=== PATIENT | male | born 1950 | race Caucasian/White ===

== ENCOUNTER 2019-09-08 12:03 | Inpatient (IN) | payer OTHER ==
--- NOTE | 2019-09-08 12:44 | PDOC ---
History of Present Illness - General Chief Complaint: Pain Stated Complaint: RT FOOT PAIN Time Seen by Provider: 09/08/19 12:22 - History of Present Illness Initial Comments: Mr. Chau is a 69 y/o male with PMH significant for HTN, DM, pacemaker, ESRD on dialysis T//, presenting today with right foot pain and swelling. Per daughter he arrived from [place] yesterday. Unsure about the alf care he was receiving over there. Also reports fall on Sunday. Right foot also appears to be more swollen today. Unsure if head trauma. Past History - Past Medical History Allergies/Adverse Reactions: Allergies Allergy/AdvReac Type Severity Reaction Status Date / Time No Known Allergies Allergy Verified 09/08/19 12:11 Home Medications: Ambulatory Orders Donepezil HCl 10 mg PO DAILY 09/08/19 Furosemide [Lasix -] 20 mg PO DAILY 09/08/19 Glimepiride 4 mg PO DAILY 09/08/19 Insulin NPH Hum/Reg Insulin Hm [Humulin 70-30 Vial] 10 unit SQ BID 09/08/19 Irbesartan/Hydrochlorothiazide [Irbesartan-Hctz 150-12.5 mg Tb] 1 each PO DAILY 09/08/19 Isosorbide Dinitrate [Isordil] 20 mg PO DAILY 09/08/19 LORazepam [Ativan] 2 mg PO HS 09/08/19 Levothyroxine [Synthroid -] 125 mcg PO DAILY 09/08/19 Omeprazole 20 mg PO DAILY 09/08/19 Temazepam [Restoril] 30 mg PO HS 09/08/19 Cardiac Disorders: Yes COPD: No Diabetes: Yes GI Disorders: Yes HTN: Yes Thyroid Disease: Yes - Surgical History Cardiac Surgery: Yes (DEFIBRILLATOR) - Psycho Social/Smoking Cessation Hx Smoking History: Never smoked Review of Systems - Review of Systems Comments:: Limited 2/2 poor patient historian GENERAL/CONSTITUTIONAL: No fever or chills. No weakness._ HEAD, EYES, EARS, NOSE AND THROAT: No change in vision. No change in hearing. No sore throat._ CARDIOVASCULAR: No chest pain or shortness of breath_ RESPIRATORY: Denies cough, hemoptysis_ GASTROINTESTINAL: No nausea, vomiting, diarrhea or constipation._ GENITOURINARY: No dysuria, frequency, or change in urination._ MUSCULOSKELETAL: Reports RLE swelling and redness and pain. No neck or back pain._ SKIN: No rash_ NEUROLOGIC: No headache, vertigo, loss of consciousness, or change in strength/ sensation._ ENDOCRINE: No increased thirst. No abnormal weight change_ HEMATOLOGIC/LYMPHATIC: No anemia, easy bleeding, or history of blood clots._ ALLERGIC/IMMUNOLOGIC: No hives or skin allergy._ *Physical Exam - Vital Signs Last Vital Signs Temp Pulse Resp BP Pulse Ox 97.3 F L 97 H 18 121/80 98 09/08/19 12:05 09/08/19 12:05 09/08/19 12:05 09/08/19 12:05 09/08/19 12:05 - Physical Exam Comments: GENERAL: Awake, alert, and oriented to person/place/time, in no acute distress_ HEAD: No signs of trauma, normocephalic, atraumatic _ EYES: PERRLA, EOMI, sclera anicteric, conjunctiva clear_ ENT: Hearing grossly normal, nares patent, oropharynx clear without exudates. No uvular deviation. Moist mucosa_ NECK: Normal ROM, supple, no lymphadenopathy, JVD, or masses_ LUNGS: No distress, speaks in full sentences, clear to auscultation bilaterally _ HEART: Regular rate and rhythm, normal S1 and S2, no murmurs appreciated, peripheral pulses normal and equal bilaterally._ ABDOMEN: Soft, nontender, normoactive bowel sounds. No guarding, no rebound. No masses_ EXTREMITIES: Normal inspection, Normal range of motion, no edema. No clubbing or cyanosis_ RLE: Inspection: Diffuse erythema and warmth over right foot and ankle. TTP right foot and ankle. no obvious abnormalities, no open wounds. Compartments soft and compressible, pain within proportion, no pain to passive stretch Knee stable to anterior/posterior drawer and varus/valgus stress Sensation: Intact and equal bilaterally. Motor: 5/5 EHL, 5/5 FHL, 5/5 TA, 5/5GS, 5/5 Quad, 5/5 Ham Vascular: 2+ DP/PT, all toes BCR <2 sec NEUROLOGICAL: Cranial nerves II through XII grossly intact. Normal speech, no focal sensorimotor deficits. Unsteady gait. Cerebellar testing negative. SKIN: Warm, Dry, normal turgor, no rashes or lesions noted except for warmth and erythema and dry skin over right foot. ED Treatment Course - LABORATORY CBC & Chemistry Diagram: 09/08/19 13:33 09/08/19 12:55 - RADIOLOGY Radiology Studies Ordered: Category Date Time Status CHEST PA & LAT [RAD] Stat Radiology 09/08/19 12:40 Ordered Medical Decision Making - Medical Decision Making 09/08/19 12:45 69M presenting with right foot swelling. Reports that he fell on Sunday and swelling has been worsening. Arrived by plane from [place] yesterday. DDx includes cellulitis vs fracture vs DVT -cbc, cmp, coags -ekg, trop, cxr -XR right foot/ankle/tibfib/knee -duplex US right leg 09/08/19 13:36 XR of right foot/ankle/tibfib/knee show no acute fracture and no subluxation. CXR shows no acute intra thoracic pathology. 09/08/19 14:00 Labs reviewed. Trops mildly elevated. Cr elevated. Laboratory Tests 09/08/19 09/08/19 09/08/19 12:55 12:55 13:33 WBC 11.3 H RBC 3.94 L Hgb 12.2 Hct 37.9 MCV 96.3 H MCH 31.1 MCHC 32.3 RDW 15.0 Plt Count 205 MPV 8.7 Absolute Neuts (auto) 8.9 H Neutrophils % 79.0 Lymphocytes % 12.5 Monocytes % 7.4 Eosinophils % 0.4 Basophils % 0.7 Nucleated RBC % 0 PT with INR INR PTT (Actin FS) Sodium 138 Potassium 4.0 Chloride 101 Carbon Dioxide 30 Anion Gap 7 L BUN 40.7 H Creatinine 4.8 H Est GFR (CKD-EPI)AfAm 13.21 Est GFR (CKD-EPI)NonAf 11.40 Random Glucose 72 L Calcium 8.3 L Total Bilirubin 0.8 AST 190 H ALT 122 H Alkaline Phosphatase 188 H Creatine Kinase 377 H Creatine Kinase Index 1.3 CK-MB (CK-2) 5.0 H Troponin I 0.60 H Total Protein 7.0 Albumin 2.5 L Urine Color Urine Appearance Urine pH Ur Specific [place] Urine Protein Urine Glucose (UA) Urine Ketones Urine Blood Urine Nitrite Urine Bilirubin Urine Urobilinogen Ur Leukocyte Esterase Urine WBC (Auto) Urine RBC (Auto) Urine Casts (Auto) U Pathogenic Cast Auto U Epithel Cells (Auto) U Sm Round Cell (Auto) Urine Bacteria (Auto) 09/08/19 09/08/19 13:33 16:38 WBC RBC Hgb Hct MCV MCH MCHC RDW Plt Count MPV Absolute Neuts (auto) Neutrophils % Lymphocytes % Monocytes % Eosinophils % Basophils % Nucleated RBC % PT with INR 12.80 INR 1.08 PTT (Actin FS) 33.3 Sodium Potassium Chloride Carbon Dioxide Anion Gap BUN Creatinine Est GFR (CKD-EPI)AfAm Est GFR (CKD-EPI)NonAf Random Glucose Calcium Total Bilirubin AST ALT Alkaline Phosphatase Creatine Kinase Creatine Kinase Index CK-MB (CK-2) Troponin I Total Protein Albumin Urine Color Dk yellow Urine Appearance Cloudy Urine pH 5.5 Ur Specific [place] 1.021 Urine Protein 4+ H Urine Glucose (UA) Negative Urine Ketones Trace H Urine Blood 2+ H Urine Nitrite Negative Urine Bilirubin 1+ H Urine Urobilinogen 1.0 Ur Leukocyte Esterase Trace Urine WBC (Auto) 17 Urine RBC (Auto) 2 Urine Casts (Auto) 22 U Pathogenic Cast Auto 5-10 U Epithel Cells (Auto) 8.1 U Sm Round Cell (Auto) None seen Urine Bacteria (Auto) 7.0 09/08/19 16:55 EKG shows paced rhythm, HR 103 bpm, QTc 529, no ST elevation/depression. 09/08/19 1830 US RLE shows no signs of DVT CT head shows no acute intracranial hemorrhage CT abd shows bilateral pleural effusions and cardiomegaly. Pacemaker in place. small amount of perihepatic free fluid. Mild non specific pericolonic soft tissue stranding adjacent to sigmoid colon. Cholelithiasis. 09/08/19 19:00 D/w Dr. Curtis who accepts the patient for admission. Discharge - Discharge Information Problems reviewed: Yes Clinical Impression/Diagnosis: Right foot pain, Cellulitis of right foot Condition: Stable - Admission Yes - Follow up/Referral - Patient Discharge Instructions - Post Discharge Activity
[2019-09-08] MEDS ORDERED: LIDOCAINE 5% TOPICAL PATCH TP ONE (14:02)
[2019-09-08 14:06] LABS: BASO % 0.7 % (0-2.0); EOS % 0.4 % (0-4.5); HEMATOCRIT 37.9 % (35.4-49); HEMOGLOBIN 12.2 GM/dL (11.7-16.9); LYMPH % 12.5 % (8-40); MCH 31.1 pg (25.7-33.7); MCHC 32.3 g/dl (32.0-35.9); MEAN CELL VOLUME 96.3 fl (80-96); MEAN PLT VOLUME 8.7 fl (7.5-11.1); MONO % 7.4 % (3.8-10.2); PLATELET COUNT 205 K/MM3 (134-434); RBC 3.94 M/mm3 (4.00-5.60); WHITE BLOOD COUNT 11.3 K/mm3 (4.0-10.0)
[2019-09-08 14:15] LABS: INR 1.08 (0.83-1.09); PROTHROMBIN TIME (PATIENT) 12.8 SEC (9.7-13.0)
[2019-09-08 14:18] LABS: ACTIVATED PTT 33.3 SECONDS (25.2-36.5)
[2019-09-08 14:35] LABS: ALBUMIN 2.5 g/dl (3.4-5.0); BILIRUBIN,TOTAL 0.8 mg/dL (0.2-1); BLOOD UREA NITROGEN 40.7 mg/dL (7-18); CALCIUM 8.3 mg/dL (8.5-10.1); CREATININE 4.8 mg/dL (0.55-1.3)
--- NOTE | 2019-09-08 14:41 | PDOC ---
Attending Attestation - Resident Resident Name: Benson Arias - ED Attending Attestation I have performed the following: I have examined & evaluated the patient, The case was reviewed & discussed with the resident, I agree w/resident's findings & plan - HPI HPI: 09/08/19 14:38 69y/o M mmp including HTN, CVA, ESRD on T//Sa dialysis just came to [place] from [place] in [place] for further medical care. Daughter arranged for outpatient dialysis to continue today (last session was Sunday and complete) as outpatient but since arriving yesterday pt c/o increased pain and swelling to R foot. no f/v/motor/sensory deficit. of note, recent fall at [place] with R sided injury, denies any acute foot pain after that fall but reporting some RUQ pain without GI complaints. - Physicial Exam PE: 09/08/19 14:40 Vitals as noted Head is atraumatic, seated in wheelchair conversant but with baseline dysarthria Neck is supple, no midline spine tenderness Heart is regular, lungs are clear Abdomen is soft/nondistended/nontender, exquisite tenderness over right lower floating ribs without crepitus or bruising or step-off Trace lower extremity edema on the left, 1+ on the right with warmth, abrasion noted to the third toe, no joint effusion - Medical Decision Making 09/08/19 14:41 This is a 69-year-old male with multiple medical problems recently transferring care from [place] scheduled for outpatient dialysis presenting to the emergency department today for acutely worsening right lower extremity/foot swelling and pain over the last 24 hours, evidence of early cellulitis on examination with abrasion of the right toe as possible source. No sirs here, hemodynamically stable, neurologically at baseline. Positive right rib tenderness on examination, question posttraumatic. Labs, EKG Chest x-ray CT head IV abx Seen by social work, will make arrangements per disposition will likely need iv abx and admission, check labs to determine urgent need for HD 09/08/19 15:49 LFTs elevated, trop elevated (0.6) xrays without focal bone pathology CT head, CTAP pending received abx admit Heart Score/ECG Review #1 ECG reviewed & interpreted by me at: 16:53 General ECG Interpretation: Normal Rate (A-V paced at 103), Normal Intervals ( qtc 529), No acute ischemic changes
[2019-09-08] MEDS ORDERED: VANCOMYCIN 1 GM in D5W (PRE-DOCKED) 1,000 MG/250 ML IVPB ONE (15:50)
[2019-09-08] MEDS ORDERED: PIPERACILLIN/TAZOB 3.375 GM 3.375 GM in DEXTROSE 5%-WATER - 50 ML IVPB ONE (15:50)
[2019-09-08] MEDS ORDERED: VANCOMYCIN 1 GRAM (PRE-DOCKED) 1,000 MG/250 ML BAG IVPB ONE (16:58)
[2019-09-08] MEDS ORDERED: PIPERACILLIN/TAZOB 3.375 GM 3.375 GM/50 ML BAG IVPB ONE (16:58)
[2019-09-08 17:04] LABS: EPI CELLS 8.1 /HPF (0-5/HPF); HYALINE CASTS 22 /lpf (0-8); PH,URINE 5.5 (5.0-8.0); URINE APPEARANCE CLOUDY; URINE BILIRUBIN 1+ (NEGATIVE); URINE COLOR DK YELLOW; URINE GLUCOSE (UA) NEGATIVE (NEGATIVE); URINE KETONE TRACE (NEGATIVE); URINE LEUK ESTERASE TRACE (NEGATIVE); URINE NITRITE NEGATIVE (NEGATIVE); URINE PROTEIN 4+ (NEGATIVE); URINE RBC 2 /hpf (0-4); URINE WBC 17 /hpf (0-5)
--- NOTE | 2019-09-08 20:06 | HP ---
Admitting History and Physical - Primary Care Physician PCP: Susana Curtis - Admission History of Present Illness: Mr. Chau is a 69 y/o male with PMH significant for HTN, DM, pacemaker, ESRD on dialysis T//, presenting today with right foot pain and swelling. Per daughter he arrived from [place] yesterday. Unsure about the senior living care he was receiving over there. Also reports fall on Sunday. Right foot also appears to be more swollen today. - Past Medical History HOME OFFICE CLAIM SPECIALIST: Yes: Dementia Cardiovascular: Yes: HTN, Other (pacemaker) Renal/: Yes: Renal Failure, Hemodialysis Endocrine: Yes: Diabetes Insipidus - Smoking History Smoking history: Never smoked Home Medications - Allergies Allergies/Adverse Reactions: Allergies Allergy/AdvReac Type Severity Reaction Status Date / Time No Known Allergies Allergy Verified 09/08/19 12:11 - Home Medications Home Medications: Ambulatory Orders Donepezil HCl 10 mg PO DAILY 09/08/19 Furosemide [Lasix -] 20 mg PO DAILY 09/08/19 Glimepiride 4 mg PO DAILY 09/08/19 Insulin NPH Hum/Reg Insulin Hm [Humulin 70-30 Vial] 10 unit SQ BID 09/08/19 Irbesartan/Hydrochlorothiazide [Irbesartan-Hctz 150-12.5 mg Tb] 1 each PO DAILY 09/08/19 Isosorbide Dinitrate [Isordil] 20 mg PO DAILY 09/08/19 LORazepam [Ativan] 2 mg PO HS 09/08/19 Levothyroxine [Synthroid -] 125 mcg PO DAILY 09/08/19 Omeprazole 20 mg PO DAILY 09/08/19 Temazepam [Restoril] 30 mg PO HS 09/08/19 Physical Examination Vital Signs: Vital Signs Temperature 98 F 09/08/19 18:02 Pulse Rate 68 09/08/19 18:02 Respiratory Rate 19 09/08/19 18:02 Blood Pressure 118/68 09/08/19 18:02 O2 Sat by Pulse Oximetry (%) 99 09/08/19 18:02 Constitutional: Yes: No Distress HENT: Yes: Atraumatic Neck: Yes: Supple Cardiovascular: Yes: Regular Rate and Rhythm Respiratory: Yes: CTA Bilaterally Gastrointestinal: Yes: Normal Bowel Sounds Extremities: Yes: Erythema, Other (R bin cellulitis) Edema: Yes Edema: LLE: 1+, RLE: 2+ Neurological: Yes: Alert Labs: CBC, BMP 09/08/19 13:33 09/08/19 12:55 Problem List - Problems (1) Cellulitis of right foot Assessment/Plan: iv abx id on board Code(s): L03.115 - CELLULITIS OF RIGHT LOWER LIMB (2) HTN (hypertension) Assessment/Plan: monitor Code(s): I10 - ESSENTIAL (PRIMARY) HYPERTENSION (3) Diabetes Assessment/Plan: insulin bgms endo consult Code(s): E11.9 - TYPE 2 DIABETES MELLITUS WITHOUT COMPLICATIONS Qualifiers: Diabetes mellitus type: type 2 Chronic kidney disease stage: on chronic dialysis (4) ESRD (end stage renal disease) Assessment/Plan: renal consult monitor Code(s): N18.6 - END STAGE RENAL DISEASE (5) Hypothyroid Assessment/Plan: on meds check tsh endo consult Code(s): E03.9 - HYPOTHYROIDISM, UNSPECIFIED Qualifiers: Hypothyroidism type: unspecified Qualified Code(s): E03.9 - Hypothyroidism , unspecified Assessment/Plan Laboratory Tests 09/08/19 09/08/19 09/08/19 12:55 12:55 13:33 WBC 11.3 H RBC 3.94 L Hgb 12.2 Hct 37.9 MCV 96.3 H MCH 31.1 MCHC 32.3 RDW 15.0 Plt Count 205 MPV 8.7 Absolute Neuts (auto) 8.9 H Neutrophils % 79.0 Lymphocytes % 12.5 Monocytes % 7.4 Eosinophils % 0.4 Basophils % 0.7 Nucleated RBC % 0 PT with INR INR PTT (Actin FS) Sodium 138 Potassium 4.0 Chloride 101 Carbon Dioxide 30 Anion Gap 7 L BUN 40.7 H Creatinine 4.8 H Est GFR (CKD-EPI)AfAm 13.21 Est GFR (CKD-EPI)NonAf 11.40 Random Glucose 72 L Calcium 8.3 L Total Bilirubin 0.8 AST 190 H ALT 122 H Alkaline Phosphatase 188 H Creatine Kinase 377 H Creatine Kinase Index 1.3 CK-MB (CK-2) 5.0 H Troponin I 0.60 H Total Protein 7.0 Albumin 2.5 L Urine Color Urine Appearance Urine pH Ur Specific [place] Urine Protein Urine Glucose (UA) Urine Ketones Urine Blood Urine Nitrite Urine Bilirubin Urine Urobilinogen Ur Leukocyte Esterase Urine WBC (Auto) Urine RBC (Auto) Urine Casts (Auto) U Pathogenic Cast Auto U Epithel Cells (Auto) U Sm Round Cell (Auto) Urine Bacteria (Auto) 09/08/19 09/08/19 13:33 16:38 WBC RBC Hgb Hct MCV MCH MCHC RDW Plt Count MPV Absolute Neuts (auto) Neutrophils % Lymphocytes % Monocytes % Eosinophils % Basophils % Nucleated RBC % PT with INR 12.80 INR 1.08 PTT (Actin FS) 33.3 Sodium Potassium Chloride Carbon Dioxide Anion Gap BUN Creatinine Est GFR (CKD-EPI)AfAm Est GFR (CKD-EPI)NonAf Random Glucose Calcium Total Bilirubin AST ALT Alkaline Phosphatase Creatine Kinase Creatine Kinase Index CK-MB (CK-2) Troponin I Total Protein Albumin Urine Color Dk yellow Urine Appearance Cloudy Urine pH 5.5 Ur Specific [place] 1.021 Urine Protein 4+ H Urine Glucose (UA) Negative Urine Ketones Trace H Urine Blood 2+ H Urine Nitrite Negative Urine Bilirubin 1+ H Urine Urobilinogen 1.0 Ur Leukocyte Esterase Trace Urine WBC (Auto) 17 Urine RBC (Auto) 2 Urine Casts (Auto) 22 U Pathogenic Cast Auto 5-10 U Epithel Cells (Auto) 8.1 U Sm Round Cell (Auto) None seen Urine Bacteria (Auto) 7.0 Active Medications Generic Name Dose Route Start Last Admin Trade Name Freq PRN Reason Stop Dose Admin Acetaminophen 650 mg 09/08/19 19:59 Tylenol - PO Q6H PRN FEVER Donepezil HCl 10 mg 09/09/19 10:00 Aricept - PO DAILY [facility] Furosemide 20 mg 09/09/19 10:00 Lasix - PO DAILY [facility] Glimepiride 4 mg 09/09/19 07:00 Amaryl - PO AM [facility] Heparin Sodium (Porcine) 5,000 unit 09/08/19 22:00 Heparin - SQ BID [facility] Insulin Aspart 1 vial 09/08/19 22:00 Novolog Vial Sliding Scale - SQ ACHS [facility] Protocol Isosorbide Dinitrate 20 mg 09/09/19 10:00 Isordil - PO DAILY [facility] Levothyroxine Sodium 125 mcg 09/09/19 07:00 Synthroid - PO AM [facility] Miscellaneous 1 each 09/08/19 22:00 Lidoderm Patch Removal MC DAILY@2200 [facility] Pantoprazole Sodium 20 mg 09/09/19 10:00 Protonix - PO DAILY [facility]
[2019-09-08] MEDS ORDERED: HEPARIN NA (PORCINE) 5,000 UNITS/ML 1ML VIAL ONE (21:22)
[2019-09-08] MEDS: HEPARIN NA (PORCINE) 5,000 UNITS/ML 1ML VIAL SQ SCH (21:25)
[2019-09-08] MEDS: LIDOCAINE PATCH REMOVAL MC SCH (21:26)
[2019-09-08] MEDS: INSULIN SLIDING SCALE (NOVOLOG) 1 VIAL SQ SCH (21:26)
[2019-09-09] MEDS: ACETAMINOPHEN 325 MG TABLET (FP) PO PRN (05:42)
[2019-09-09] MEDS: INSULIN SLIDING SCALE (NOVOLOG) 1 VIAL SQ SCH ×4 (06:00→22:42)
[2019-09-09] MEDS ORDERED: GLIMEPIRIDE 4 MG TABLET (FP) PO SCH (07:00)
[2019-09-09] MEDS: LEVOTHYROXINE NA 125 MCG TABLET (FP) PO SCH (07:05)
[2019-09-09] MEDS: DONEPEZIL HCL 10 MG TABLET (FP) PO SCH (10:01)
[2019-09-09] MEDS: PANTOPRAZOLE 20 MG TABLET (FP) PO SCH (10:01)
[2019-09-09] MEDS: FUROSEMIDE 20 MG TABLET (FP) PO SCH (10:01)
[2019-09-09] MEDS: HEPARIN NA (PORCINE) 5,000 UNITS/ML 1ML VIAL SQ SCH ×2 (10:02→22:19)
--- NOTE | 2019-09-09 10:26 | CON.CARD ---
Consult Consult Specialty:: Cardiology Referred by:: Dr. Curtis Reason for Consultation:: Cardiac evaluation - History of Present Illness Chief Complaint: Right foot swelling History of Present Illness: Patient is a 69 year old male with underlying history of HTN, DM, cardiomyopathy s/p ARGON TESTER-D (likely [employer]), ESRD on HD presented with right foot pain and swelling. He had just arrived from [place]. He reported fall. He has underlying dementia. He denies chest pain, shortness of breath or palpitations. He denies paroxysmal nocturnal dyspnea or orthopnea. He denies fever or chills. He denies nausea, vomiting, diarrhea or abdominal pain. He complains of right upper quadrant discomfort. - History Source History Provided By: Patient, Medical Record Limitations to Obtaining History: Clinical Condition - Past Medical History [employer]: Yes: Dementia Cardio/Vascular: Yes: CHF, HTN, Other (ARGON TESTER-D) Renal/: Yes: Renal Failure, Hemodialysis Endocrine: Yes: Diabetes Insipidus - Smoking History Smoking history: Never smoked Home Medications - Allergies Allergies/Adverse Reactions: Allergies Allergy/AdvReac Type Severity Reaction Status Date / Time No Known Allergies Allergy Verified 09/08/19 12:11 - Home Medications Home Medications: Ambulatory Orders Donepezil HCl 10 mg PO DAILY 09/08/19 Furosemide [Lasix -] 20 mg PO DAILY 09/08/19 Glimepiride 4 mg PO DAILY 09/08/19 Insulin NPH Hum/Reg Insulin Hm [Humulin 70-30 Vial] 10 unit SQ BID 09/08/19 Irbesartan/Hydrochlorothiazide [Irbesartan-Hctz 150-12.5 mg Tb] 1 each PO DAILY 09/08/19 Isosorbide Dinitrate [Isordil] 20 mg PO DAILY 09/08/19 LORazepam [Ativan] 2 mg PO HS 09/08/19 Levothyroxine [Synthroid -] 125 mcg PO DAILY 09/08/19 Omeprazole 20 mg PO DAILY 09/08/19 Temazepam [Restoril] 30 mg PO HS 09/08/19 Review of Systems - Review of Systems Constitutional: denies: Chills, Fever Cardiovascular: denies: Chest Pain, Palpitations, Shortness of Breath Respiratory: denies: Cough, Hemoptysis, Orthopnea, PND, SOB, SOB on Exertion Gastrointestinal: denies: Abdominal Pain, Constipation, Diarrhea, Melena, Nausea , Rectal Bleeding, Vomiting Genitourinary: denies: Dysuria, Hematuria Musculoskeletal: denies: Back Pain Neurological: denies: Dizziness, Headache, Seizure, Syncope Vital Signs: Vital Signs Temperature 98.3 F 09/09/19 10:00 Pulse Rate 86 09/09/19 10:00 Respiratory Rate 20 09/09/19 10:00 Blood Pressure 122/83 09/09/19 10:00 O2 Sat by Pulse Oximetry (%) 95 09/09/19 05:30 Eyes: Yes: PERRL HENT: Yes: Atraumatic Neck: Yes: Supple Respiratory: Yes: Diminished Gastrointestinal: Yes: Normal Bowel Sounds, Soft, Tenderness (RUQ with palpation ) Cardiovascular: Yes: Regular Rate and Rhythm JVD: No PMI: Non-Displaced Heart Sounds: Yes: S1, S2 Edema: No - Other Data Labs, Other Data: CBC, BMP 09/08/19 13:33 09/08/19 12:55 INR, PTT INR 1.08 (0.83-1.09) 09/08/19 13:33 Troponin, BNP 09/08/19 09/09/19 12:55 04:26 Troponin I 0.60 H 0.37 H Atrial sensed ventricular paced rhythm Echo: Pending Imaging - Results Chest X-ray: Report Reviewed (Atelectasis) X-ray: Report Reviewed (No fracture) Cat Scan: Report Reviewed (Abdominal CT small perihepatic free fluid and cholelithiasis) Ultrasound: Report Reviewed (No DVT) EKG: Report Reviewed Problem List - Problems (1) Biventricular ICD (implantable cardioverter-defibrillator) in place Code(s): Z95.810 - PRESENCE OF AUTOMATIC (IMPLANTABLE) CARDIAC DEFIBRILLATOR (2) Cardiomyopathy Code(s): I42.9 - CARDIOMYOPATHY, UNSPECIFIED Qualifiers: Cardiomyopathy type: unspecified Qualified Code(s): I42.9 - Cardiomyopathy , unspecified (3) Cellulitis of right foot Code(s): L03.115 - CELLULITIS OF RIGHT LOWER LIMB (4) Diabetes Code(s): E11.9 - TYPE 2 DIABETES MELLITUS WITHOUT COMPLICATIONS Qualifiers: Diabetes mellitus type: type 2 Chronic kidney disease stage: on chronic dialysis (5) ESRD (end stage renal disease) Code(s): N18.6 - END STAGE RENAL DISEASE (6) HTN (hypertension) Code(s): I10 - ESSENTIAL (PRIMARY) HYPERTENSION (7) Hypothyroid Code(s): E03.9 - HYPOTHYROIDISM, UNSPECIFIED Qualifiers: Hypothyroidism type: unspecified Qualified Code(s): E03.9 - Hypothyroidism , unspecified (8) Right foot pain Code(s): M79.671 - PAIN IN RIGHT FOOT Assessment/Plan 1. ESRD on HD 2. Cardiomyopathy s/p ARGON TESTER-D 3. HTN 4. Right Foot cellulitis 5. T2DM 6. Hypothyroidism 7. Dementia 8. Cholelithiasis and perihepatic free fluid 9. Demand ischemia PLAN: 1. HD per renal 2. Continue wound care and empiric antibiotic coverage 3. Need to interrogate ARGON TESTER-D 4. Can use ARB for BP as patient is on HD as long as he does not exhibit hyperkalemia 5. Echocardiography to assess LV/RV and valvular function 6. Trend troponin 7. Further evaluation of perihepatic free fluid Olman Pina MD
--- NOTE | 2019-09-09 10:34 | EKG ---
Test Reason : Blood Pressure : / mmHG Vent. Rate : 103 BPM Atrial Rate : 103 BPM P-R Int : 144 ms QRS Dur : 124 ms QT Int : 404 ms P-R-T Axes : 027 165 -01 degrees QTc Int : 529 ms POOR DATA QUALITY, INTERPRETATION MAY BE ADVERSELY AFFECTED Atrial-sensed ventricular-paced rhythm Biventricular pacemaker detected ABNORMAL ECG NO PREVIOUS ECGS AVAILABLE Confirmed by Benson Alexandra MD ([id number]) on 09/09/2019 10:34:22 AM Referred By: Confirmed By:Benson Alexandra MD
--- NOTE | 2019-09-09 13:55 | CON.ID ---
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: 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 Cardio/Vascular: Yes: HTN, Other (pacemaker) Renal/: Yes: Renal Failure, Hemodialysis Endocrine: Yes: Diabetes Insipidus - Smoking History Smoking history: Never smoked - Social History Usual Living Arrangement: Snf Place of : Other ([place]) History of Recent Travel: Yes (just arrived yesterday) Home Medications - Allergies Allergies/Adverse Reactions: Allergies Allergy/AdvReac Type Severity Reaction Status Date / Time No Known Allergies Allergy Verified 09/08/19 12:11 - Home Medications Home Medications: Ambulatory Orders Donepezil HCl 10 mg PO DAILY 09/08/19 Furosemide [Lasix -] 20 mg PO DAILY 09/08/19 Glimepiride 4 mg PO DAILY 09/08/19 Insulin NPH Hum/Reg Insulin Hm [Humulin 70-30 Vial] 10 unit SQ BID 09/08/19 Irbesartan/Hydrochlorothiazide [Irbesartan-Hctz 150-12.5 mg Tb] 1 each PO DAILY 09/08/19 Isosorbide Dinitrate [Isordil] 20 mg PO DAILY 09/08/19 LORazepam [Ativan] 2 mg PO HS 09/08/19 Levothyroxine [Synthroid -] 125 mcg PO DAILY 09/08/19 Omeprazole 20 mg PO DAILY 09/08/19 Temazepam [Restoril] 30 mg PO HS 09/08/19 Family Medical History Family History: Unable to Obtain Review of Systems - Review of Systems Constitutional: reports: No Symptoms Eyes: reports: No Symptoms HENT: reports: No Symptoms Neck: reports: No Symptoms Cardiovascular: reports: No Symptoms Respiratory: reports: No Symptoms Gastrointestinal: reports: No Symptoms Genitourinary: reports: No Symptoms Physical Exam Vital Signs: Vital Signs Temperature 98.3 F 09/09/19 10:00 Pulse Rate 86 09/09/19 10:00 Respiratory Rate 20 11/26/19 10:00 Blood Pressure 122/83 09/09/19 10:00 O2 Sat by Pulse Oximetry (%) 95 09/09/19 05:30 Constitutional: Yes: Well Nourished, No Distress, Calm Eyes: Yes: Conjunctiva Clear HENT: Yes: Atraumatic, Normocephalic Neck: Yes: Supple, Trachea Midline Cardiovascular: Yes: Regular Rate and Rhythm Respiratory: Yes: CTA Bilaterally, Other (right chest wall PC, left chest wall PPM- no erythema or tenderness to either device) Gastrointestinal: Yes: Normal Bowel Sounds, Soft ...Rectal Exam: Yes: Deferred Extremities: Yes: Other (right foot heel with discoloration with surrounding erythema) Edema: No Labs: CBC, BMP 09/08/19 13:33 09/08/19 12:55 Microbiology 09/08/19 13:35 Blood - Peripheral Venous Blood Culture - Preliminary NO GROWTH OBTAINED AFTER 24 HOURS, INCUBATION TO CONTINUE FOR 4 DAYS. 09/08/19 13:35 Blood - Peripheral Venous Blood Culture - Preliminary NO GROWTH OBTAINED AFTER 24 HOURS, INCUBATION TO CONTINUE FOR 4 DAYS. Imaging - Results Chest X-ray: Report Reviewed X-ray: Report Reviewed Cat Scan: Report Reviewed Problem List - Problems (1) Cellulitis of right foot Code(s): L03.115 - CELLULITIS OF RIGHT LOWER LIMB (2) ESRD (end stage renal disease) Code(s): N18.6 - END STAGE RENAL DISEASE (3) Diabetes Code(s): E11.9 - TYPE 2 DIABETES MELLITUS WITHOUT COMPLICATIONS Assessment/Plan received vancomycin and zosyn in ED yesterday cefazolin for cellulitis podiatry to evaluate vascular to evaluate renal for HD
--- NOTE | 2019-09-09 14:40 | CONSULT ---
Consult Consult Specialty:: Endocrinoloyg Referred by:: Dr Curtis Reason for Consultation:: Management of diabetes - History of Present Illness Chief Complaint: Rt foot pain History of Present Illness: This is a 69 y/o male with PMH significant for HTN, T2DM for 40 years, On Insulin for many years, pacemaker, ESRD on dialysis T//, presenting today with right foot pain and swelling. Per daughter he arrived from [place] yesterday. Unsure about the group home care he was receiving over there. Also reports fall on Sunday. Right foot also appears to be more swollen today. 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 Cardio/Vascular: Yes: HTN, Other (pacemaker) Renal/: Yes: Renal Failure, Hemodialysis Endocrine: Yes: Diabetes Insipidus - Smoking History Smoking history: Never smoked - Social History Usual Living Arrangement: Skilled Nursing History of Recent Travel: Yes (just arrived yesterday) Home Medications - Allergies Allergies/Adverse Reactions: Allergies Allergy/AdvReac Type Severity Reaction Status Date / Time No Known Allergies Allergy Verified 09/08/19 12:11 - Home Medications Home Medications: Ambulatory Orders Donepezil HCl 10 mg PO DAILY 09/08/19 Furosemide [Lasix -] 20 mg PO DAILY 09/08/19 Glimepiride 4 mg PO DAILY 09/08/19 Insulin NPH Hum/Reg Insulin Hm [Humulin 70-30 Vial] 10 unit SQ BID 09/08/19 Irbesartan/Hydrochlorothiazide [Irbesartan-Hctz 150-12.5 mg Tb] 1 each PO DAILY 09/08/19 Isosorbide Dinitrate [Isordil] 20 mg PO DAILY 09/08/19 LORazepam [Ativan] 2 mg PO HS 09/08/19 Levothyroxine [Synthroid -] 125 mcg PO DAILY 09/08/19 Omeprazole 20 mg PO DAILY 09/08/19 Temazepam [Restoril] 30 mg PO HS 09/08/19 Family Medical History Family Hx Diabetes: Mother, Father Review of Systems - Review of Systems Constitutional: reports: No Symptoms Eyes: reports: No Symptoms HENT: reports: No Symptoms Neck: reports: No Symptoms Cardiovascular: reports: No Symptoms Respiratory: reports: No Symptoms Gastrointestinal: reports: No Symptoms Genitourinary: reports: No Symptoms Musculoskeletal: reports: Other (Rt foot pain) Neurological: reports: No Symptoms Endocrine: reports: No Symptoms Physical Exam Vital Signs: Vital Signs Temperature 98.3 F 09/09/19 10:00 Pulse Rate 86 09/09/19 10:00 Respiratory Rate 20 09/09/19 10:00 Blood Pressure 122/83 09/09/19 10:00 O2 Sat by Pulse Oximetry (%) 95 09/09/19 05:30 Constitutional: Yes: No Distress, Calm Eyes: Yes: Conjunctiva Clear, EOM Intact HENT: Yes: Atraumatic, Normocephalic Neck: Yes: Supple, Trachea Midline Cardiovascular: Yes: Regular Rate and Rhythm Respiratory: Yes: Regular, CTA Bilaterally Gastrointestinal: Yes: Normal Bowel Sounds Extremities: Yes: Other (Rt foot/lower leg erythema,) Labs: CBC, BMP 09/08/19 13:33 09/08/19 12:55 Assessment/Plan AP: Rt Foot cellulitis T2DM Hypothyroidism ESRD D/C Glimepiride b/o increase risk of hypoglycemia with long acting Sulfonylurea in pt on HD. BGM Q 3 hrs for 24 hrs, To give 100 KCal snack when FS <100 or D50 if FS <60 Novolog SS coverage premeals and HS only as prescribed Abx as per ID Will f/u
[2019-09-09] MEDS ORDERED: DEXTROSE 5%-WATER - 50 ML IVPB ONE (14:41)
[2019-09-09] MEDS ORDERED: ceFAZolin SODIUM 1 GM VIAL ONE (14:41)
[2019-09-09] MEDS: ISOSORBIDE DINITRATE 20 MG TABLET (FP) PO SCH (14:53)
[2019-09-09] MEDS: CEFAZOLIN 1 GM in DEXTROSE 5%-WATER - 50 ML IVPB SCH (14:53)
[2019-09-09] MEDS ORDERED: SODIUM CHLORIDE 250 ML IV PRN (16:05)
--- NOTE | 2019-09-09 16:13 | CONSULT ---
Consult Consult Specialty:: Nephrology Reason for Consultation:: ESRD - History of Present Illness Chief Complaint: right foot pain and swelling History of Present Illness: Pt is a 69 year old male with pmhx of htn, dm, esrd, ppm who presents with right foot pain and swelling. He was admitted with cellulitis. He denies fevers or chills. He is from [place] and had just arrived to [place]. He gets HD there. He does not know the name of the HD center. He last went to dialysis on Sunday. he denies shortness of breath. He has a chest wall permacath. 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 Cardio/Vascular: Yes: HTN, Other (pacemaker) Renal/: Yes: Renal Failure, Hemodialysis Endocrine: Yes: Diabetes Insipidus - Smoking History Smoking history: Never smoked - Social History Usual Living Arrangement: [facility] History of Recent Travel: Yes (just arrived yesterday) Home Medications - Allergies Allergies/Adverse Reactions: Allergies Allergy/AdvReac Type Severity Reaction Status Date / Time No Known Allergies Allergy Verified 09/08/19 12:11 - Home Medications Home Medications: Ambulatory Orders Donepezil HCl 10 mg PO DAILY 09/08/19 Furosemide [Lasix -] 20 mg PO DAILY 09/08/19 Glimepiride 4 mg PO DAILY 09/08/19 Insulin NPH Hum/Reg Insulin Hm [Humulin 70-30 Vial] 10 unit SQ BID 09/08/19 Irbesartan/Hydrochlorothiazide [Irbesartan-Hctz 150-12.5 mg Tb] 1 each PO DAILY 09/08/19 Isosorbide Dinitrate [Isordil] 20 mg PO DAILY 09/08/19 LORazepam [Ativan] 2 mg PO HS 09/08/19 Levothyroxine [Synthroid -] 125 mcg PO DAILY 09/08/19 Omeprazole 20 mg PO DAILY 09/08/19 Temazepam [Restoril] 30 mg PO HS 09/08/19 Family Medical History Family History: Denies Review of Systems - Review of Systems Constitutional: reports: No Symptoms Eyes: reports: No Symptoms HENT: reports: No Symptoms Neck: reports: No Symptoms Cardiovascular: reports: No Symptoms Respiratory: reports: No Symptoms Gastrointestinal: reports: No Symptoms Genitourinary: reports: No Symptoms Musculoskeletal: reports: Other (foot pain) Neurological: reports: No Symptoms Endocrine: reports: No Symptoms Psychiatric: reports: No Symptoms Physical Exam Vital Signs: Vital Signs Temperature 97.5 F L 09/09/19 14:00 Pulse Rate 100 H 09/09/19 14:00 Respiratory Rate 20 09/09/19 14:00 Blood Pressure 131/74 09/09/19 14:00 O2 Sat by Pulse Oximetry (%) 95 09/09/19 05:30 Constitutional: Yes: Calm Eyes: Yes: Conjunctiva Clear HENT: Yes: Atraumatic Neck: Yes: Supple Cardiovascular: Yes: S1, S2 Respiratory: Yes: CTA Bilaterally Gastrointestinal: Yes: Normal Bowel Sounds, Soft Renal/: Yes: WNL Musculoskeletal: Yes: WNL Edema: No Wound/Incision: Yes: Dressing Dry and Intact Neurological: Yes: Oriented Psychiatric: Yes: Oriented Labs: CBC, BMP 09/08/19 13:33 09/08/19 12:55 Imaging - Results Chest X-ray: Report Reviewed Problem List - Problems (1) Cellulitis of right foot Code(s): L03.115 - CELLULITIS OF RIGHT LOWER LIMB (2) Diabetes Code(s): E11.9 - TYPE 2 DIABETES MELLITUS WITHOUT COMPLICATIONS (3) ESRD (end stage renal disease) Code(s): N18.6 - END STAGE RENAL DISEASE (4) HTN (hypertension) Code(s): I10 - ESSENTIAL (PRIMARY) HYPERTENSION (5) Hypothyroid Code(s): E03.9 - HYPOTHYROIDISM, UNSPECIFIED Assessment/Plan Current Medications Generic Name Dose Route Start Last Admin Trade Name Freq PRN Reason Stop Dose Admin Acetaminophen 650 mg 09/08/19 19:59 09/09/19 05:42 Tylenol - PO 650 mg Q6H PRN Administration FEVER Donepezil HCl 10 mg 09/09/19 10:00 09/09/19 10:01 Aricept - PO 10 mg DAILY [facility] Administration Furosemide 20 mg 09/09/19 10:00 09/09/19 10:01 Lasix - PO 20 mg DAILY [facility] Administration Heparin Sodium (Porcine) 5,000 unit 09/08/19 22:00 09/09/19 10:02 Heparin - SQ 5,000 unit BID [facility] Administration Cefazolin Sodium 1 gm/ 50 mls @ 100 mls/hr 09/09/19 14:00 09/09/19 14:53 Dextrose IVPB 100 mls/hr DAILY [facility] Administration Sodium Chloride 250 mls @ 3,000 mls/hr 09/09/19 16:05 Normal Saline - IV 09/10/19 16:05 PRN PRN Hypotension during Dialysis Insulin Aspart 1 vial 09/08/19 22:00 09/09/19 11:31 Novolog Vial Sliding Scale - SQ Not Given ACHS [facility] Protocol Isosorbide Dinitrate 20 mg 09/09/19 10:00 09/09/19 14:53 Isordil - PO 20 mg DAILY [facility] Administration Levothyroxine Sodium 125 mcg 09/09/19 07:00 09/09/19 07:05 Synthroid - PO 125 mcg AM [facility] Administration Miscellaneous 1 each 09/08/19 22:00 09/08/19 21:26 Lidoderm Patch Removal MC Not Given DAILY@2200 O[facility] Pantoprazole Sodium 20 mg 09/09/19 10:00 09/09/19 10:01 Protonix - PO 20 mg DAILY O[facility] Administration Impression 1. ESRD 2. HTN 3. cellulitis 4. DM 5. hypothyroidism Plan - HD today - wound care - abx per primary team - can stop lasix of he does not make much urine
--- NOTE | 2019-09-09 17:34 | PN ---
Progress Note, Physician - Current Medication List Current Medications: Active Medications Acetaminophen (Tylenol -) 650 mg PO Q6H PRN PRN Reason: FEVER Last Admin: 09/09/19 05:42 Dose: 650 mg Donepezil HCl (Aricept -) 10 mg PO DAILY [facility] Last Admin: 09/09/19 10:01 Dose: 10 mg Furosemide (Lasix -) 20 mg PO DAILY [facility] Last Admin: 09/09/19 10:01 Dose: 20 mg Heparin Sodium (Porcine) (Heparin -) 5,000 unit SQ BID [facility] Last Admin: 09/09/19 10:02 Dose: 5,000 unit Cefazolin Sodium 1 gm/ (Dextrose) 50 mls @ 100 mls/hr IVPB DAILY [facility] Last Admin: 09/09/19 14:53 Dose: 100 mls/hr Sodium Chloride (Normal Saline -) 250 mls @ 3,000 mls/hr IV PRN PRN PRN Reason: Hypotension during Dialysis Stop: 09/10/19 16:05 Insulin Aspart (Novolog Vial Sliding Scale -) [address] [facility]; Protocol Last Admin: 09/09/19 11:31 Dose: Not Given Isosorbide Dinitrate (Isordil -) 20 mg PO DAILY [facility] Last Admin: 09/09/19 14:53 Dose: 20 mg Levothyroxine Sodium (Synthroid -) 125 mcg PO AM [facility] Last Admin: 09/09/19 07:05 Dose: 125 mcg Miscellaneous (Lidoderm Patch Removal) 1 each MC DAILY@2200 [facility] Last Admin: 09/08/19 21:26 Dose: Not Given Pantoprazole Sodium (Protonix -) 20 mg PO DAILY [facility] Last Admin: 09/09/19 10:01 Dose: 20 mg - Objective Vital Signs: Vital Signs Temperature 97.5 F L 09/09/19 14:00 Pulse Rate 96 H 09/09/19 17:05 Respiratory Rate 18 09/09/19 17:05 Blood Pressure 140/88 09/09/19 17:05 O2 Sat by Pulse Oximetry (%) 95 09/09/19 09:00 Constitutional: Yes: No Distress HENT: Yes: Atraumatic Neck: Yes: Supple Cardiovascular: Yes: Regular Rate and Rhythm Respiratory: Yes: CTA Bilaterally Gastrointestinal: Yes: Normal Bowel Sounds Extremities: Yes: Other (R foot celluilitis) Neurological: Yes: Alert, Oriented Labs: CBC, BMP 09/08/19 13:33 09/08/19 12:55 INR, PTT INR 1.08 (0.83-1.09) 09/08/19 13:33 Problem List - Problems (1) Cellulitis of right foot Assessment/Plan: iv abx id on board Code(s): L03.115 - CELLULITIS OF RIGHT LOWER LIMB (2) HTN (hypertension) Code(s): I10 - ESSENTIAL (PRIMARY) HYPERTENSION (3) Diabetes Assessment/Plan: insulin bgms Code(s): E11.9 - TYPE 2 DIABETES MELLITUS WITHOUT COMPLICATIONS Qualifiers: Diabetes mellitus type: type 2 Chronic kidney disease stage: on chronic dialysis (4) ESRD (end stage renal disease) Code(s): N18.6 - END STAGE RENAL DISEASE (5) Hypothyroid Assessment/Plan: on meds check tsh endo consult Code(s): E03.9 - HYPOTHYROIDISM, UNSPECIFIED Qualifiers: Hypothyroidism type: unspecified Qualified Code(s): E03.9 - Hypothyroidism , unspecified Assessment/Plan Laboratory Tests 09/08/19 09/08/19 09/08/19 12:55 12:55 13:33 WBC 11.3 H RBC 3.94 L Hgb 12.2 Hct 37.9 MCV 96.3 H MCH 31.1 MCHC 32.3 RDW 15.0 Plt Count 205 MPV 8.7 Absolute Neuts (auto) 8.9 H Neutrophils % 79.0 Lymphocytes % 12.5 Monocytes % 7.4 Eosinophils % 0.4 Basophils % 0.7 Nucleated RBC % 0 PT with INR INR PTT (Actin FS) Sodium 138 Potassium 4.0 Chloride 101 Carbon Dioxide 30 Anion Gap 7 L BUN 40.7 H Creatinine 4.8 H Est GFR (CKD-EPI)AfAm 13.21 Est GFR (CKD-EPI)NonAf 11.40 Random Glucose 72 L Calcium 8.3 L Total Bilirubin 0.8 AST 190 H ALT 122 H Alkaline Phosphatase 188 H Creatine Kinase 377 H Creatine Kinase Index 1.3 CK-MB (CK-2) 5.0 H Troponin I 0.60 H Total Protein 7.0 Albumin 2.5 L Urine Color Urine Appearance Urine pH Ur Specific [place] Urine Protein Urine Glucose (UA) Urine Ketones Urine Blood Urine Nitrite Urine Bilirubin Urine Urobilinogen Ur Leukocyte Esterase Urine WBC (Auto) Urine RBC (Auto) Urine Casts (Auto) U Pathogenic Cast Auto U Epithel Cells (Auto) U Sm Round Cell (Auto) Urine Bacteria (Auto) 09/08/19 09/08/19 13:33 16:38 WBC RBC Hgb Hct MCV MCH MCHC RDW Plt Count MPV Absolute Neuts (auto) Neutrophils % Lymphocytes % Monocytes % Eosinophils % Basophils % Nucleated RBC % PT with INR 12.80 INR 1.08 PTT (Actin FS) 33.3 Sodium Potassium Chloride Carbon Dioxide Anion Gap BUN Creatinine Est GFR (CKD-EPI)AfAm Est GFR (CKD-EPI)NonAf Random Glucose Calcium Total Bilirubin AST ALT Alkaline Phosphatase Creatine Kinase Creatine Kinase Index CK-MB (CK-2) Troponin I Total Protein Albumin Urine Color Dk yellow Urine Appearance Cloudy Urine pH 5.5 Ur Specific [place] 1.021 Urine Protein 4+ H Urine Glucose (UA) Negative Urine Ketones Trace H Urine Blood 2+ H Urine Nitrite Negative Urine Bilirubin 1+ H Urine Urobilinogen 1.0 Ur Leukocyte Esterase Trace Urine WBC (Auto) 17 Urine RBC (Auto) 2 Urine Casts (Auto) 22 U Pathogenic Cast Auto 5-10 U Epithel Cells (Auto) 8.1 U Sm Round Cell (Auto) None seen Urine Bacteria (Auto) 7.0 Active Medications Generic Name Dose Route Start Last Admin Trade Name Freq PRN Reason Stop Dose Admin Acetaminophen 650 mg 09/08/19 19:59 Tylenol - PO Q6H PRN FEVER Donepezil HCl 10 mg 09/09/19 10:00 Aricept - PO DAILY [facility] Furosemide 20 mg 09/09/19 10:00 Lasix - PO DAILY [facility] Glimepiride 4 mg 09/09/19 07:00 Amaryl - PO AM [facility] Heparin Sodium (Porcine) 5,000 unit 09/08/19 22:00 Heparin - SQ BID [facility] Insulin Aspart 1 vial 09/08/19 22:00 Novolog Vial Sliding Scale - SQ ACHS [facility] Protocol Isosorbide Dinitrate 20 mg 09/09/19 10:00 Isordil - PO DAILY [facility] Levothyroxine Sodium 125 mcg 09/09/19 07:00 Synthroid - PO AM [facility] Miscellaneous 1 each 09/08/19 22:00 Lidoderm Patch Removal MC DAILY@2200 [facility] Pantoprazole Sodium 20 mg 09/09/19 10:00 Protonix - PO DAILY [facility]
[2019-09-09] MEDS: LIDOCAINE PATCH REMOVAL MC SCH (22:28)
[2019-09-10] MEDS: INSULIN SLIDING SCALE (NOVOLOG) 1 VIAL SQ SCH ×4 (06:54→21:19)
[2019-09-10] MEDS: LEVOTHYROXINE NA 125 MCG TABLET (FP) PO SCH (06:54)
[2019-09-10] MEDS ORDERED: ceFAZolin SODIUM 1 GM VIAL ONE (09:26)
[2019-09-10] MEDS ORDERED: DEXTROSE 5%-WATER - 50 ML IVPB ONE (09:26)
--- NOTE | 2019-09-10 09:36 | PN ---
Progress Note (short form) - Note Progress Note: still c/o rt foot pain BGM 200s off Glimepiride Vital Signs Period Temp Pulse Resp BP Sys/Palacios Pulse Ox Last 24 Hr 97.4 F-99.5 F 86-105 18-20 103-154/72-91 93 PE AOx3 Neck: Supple, No JVD Lungs: CTA CVS: s1S2 Abd: Benign Ext: Rt left erythema Neuro: No focal deficit CMP Sodium 138 mmol/L (136-145) 09/08/19 12:55 Potassium 4.0 mmol/L (3.5-5.1) 09/08/19 12:55 Chloride 101 mmol/L (98-107) 09/08/19 12:55 Carbon Dioxide 30 mmol/L (21-32) 09/08/19 12:55 Anion Gap 7 MMOL/L (8-16) L 09/08/19 12:55 BUN 40.7 mg/dL (7-18) H 09/08/19 12:55 Creatinine 4.8 mg/dL (0.55-1.3) H 09/08/19 12:55 Est GFR (CKD-EPI)AfAm 13.21 09/08/19 12:55 Est GFR (CKD-EPI)NonAf 11.40 09/08/19 12:55 POC Glucometer 206 UNITS (80-120) 09/10/19 06:53 Random Glucose 72 mg/dL (74-106) L 09/08/19 12:55 Hemoglobin A1c % 7.2 % (4.2-6.3) H 09/09/19 15:00 Calcium 8.3 mg/dL (8.5-10.1) L 09/08/19 12:55 Total Bilirubin 0.8 mg/dL (0.2-1) 09/08/19 12:55 AST 190 U/L (15-37) H 09/08/19 12:55 ALT 122 U/L (13-61) H 09/08/19 12:55 Alkaline Phosphatase 188 U/L (45-117) H 09/08/19 12:55 Creatine Kinase 377 U/L (26-308) H 09/08/19 12:55 Creatine Kinase Index 1.3 % (0.0-5.0) 09/08/19 12:55 CK-MB (CK-2) 5.0 ng/mL (0.5-3.6) H 09/08/19 12:55 Troponin I 0.37 ng/ml (0.00-0.05) H 09/09/19 04:26 Total Protein 7.0 g/dl (6.4-8.2) 09/08/19 12:55 Albumin 2.5 g/dl (3.4-5.0) L 09/08/19 12:55 Triglycerides 120 mg/dL (0-150) 09/09/19 04:26 Cholesterol 94 mg/dL (50-200) 09/09/19 04:26 Total LDL Cholesterol 45 mg/dL (5-100) 09/09/19 04:26 HDL Cholesterol 37 mg/dL (40-60) L 09/09/19 04:26 TSH 3.73 uIU/ml (0.358-3.74) 09/09/19 04:26 Current Medications Generic Name Dose Route Start Last Admin Trade Name Freq PRN Reason Stop Dose Admin Acetaminophen 650 mg 09/08/19 19:59 09/09/19 05:42 Tylenol - PO 650 mg Q6H PRN Administration FEVER Donepezil HCl 10 mg 09/09/19 10:00 09/09/19 10:01 Aricept - PO 10 mg DAILY [facility] Administration Furosemide 20 mg 09/09/19 10:00 09/09/19 10:01 Lasix - PO 20 mg DAILY [facility] Administration Heparin Sodium (Porcine) 5,000 unit 09/08/19 22:00 09/09/19 22:19 Heparin - SQ Not Given BID [facility] Cefazolin Sodium 1 gm/ 50 mls @ 100 mls/hr 09/09/19 14:00 09/09/19 14:53 Dextrose IVPB 100 mls/hr DAILY [facility] Administration Sodium Chloride 250 mls @ 3,000 mls/hr 09/09/19 16:05 Normal Saline - IV 09/10/19 16:05 PRN PRN Hypotension during Dialysis Insulin Aspart 1 vial 09/10/19 07:00 09/10/19 06:54 Novolog Vial Sliding Scale - SQ 2 units TIDAC [facility] Administration Protocol Insulin Aspart 1 vial 09/09/19 22:00 09/09/19 22:42 Novolog Vial Sliding Scale - SQ 2 units HS [facility] Administration Protocol Isosorbide Dinitrate 20 mg 09/09/19 10:00 09/09/19 14:53 Isordil - PO 20 mg DAILY [facility] Administration Levothyroxine Sodium 125 mcg 09/09/19 07:00 09/10/19 06:54 Synthroid - PO 125 mcg AM [facility] Administration Miscellaneous 1 each 09/08/19 22:00 09/09/19 22:28 Lidoderm Patch Removal MC Not Given DAILY@2200 [facility] Pantoprazole Sodium 20 mg 09/09/19 10:00 09/09/19 10:01 Protonix - PO 20 mg DAILY [facility] Administration AP: Rt Foot cellulitis T2DM Hypothyroidism ESRD Off Glimepiride b/o increase risk of hypoglycemia with long acting Sulfonylurea in pt on HD. BGM Q ACHS. To give 100 KCal snack when FS <100 or D50 if FS <60 Start Levemir 8 units daily Novolog SS coverage premeals and HS only as prescribed Abx as per ID Will f/u
[2019-09-10] MEDS: PANTOPRAZOLE 20 MG TABLET (FP) PO SCH (09:57)
[2019-09-10] MEDS: HEPARIN NA (PORCINE) 5,000 UNITS/ML 1ML VIAL SQ SCH ×2 (09:57→21:20)
[2019-09-10] MEDS: DONEPEZIL HCL 10 MG TABLET (FP) PO SCH (09:57)
[2019-09-10] MEDS: FUROSEMIDE 20 MG TABLET (FP) PO SCH (09:57)
[2019-09-10] MEDS: CEFAZOLIN 1 GM in DEXTROSE 5%-WATER - 50 ML IVPB SCH (09:58)
--- NOTE | 2019-09-10 10:06 | PN ---
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 - Current Medication List Current Medications: Active Medications Acetaminophen (Tylenol -) 650 mg PO Q6H PRN PRN Reason: FEVER Last Admin: 09/09/19 05:42 Dose: 650 mg Donepezil HCl (Aricept -) 10 mg PO DAILY [facility] Last Admin: 09/10/19 09:57 Dose: 10 mg Furosemide (Lasix -) 20 mg PO DAILY [facility] Last Admin: 09/10/19 09:57 Dose: 20 mg Heparin Sodium (Porcine) (Heparin -) 5,000 unit SQ BID [facility] Last Admin: 09/10/19 09:57 Dose: 5,000 unit Cefazolin Sodium 1 gm/ (Dextrose) 50 mls @ 100 mls/hr IVPB DAILY [facility] Last Admin: 09/10/19 09:58 Dose: 100 mls/hr Sodium Chloride (Normal Saline -) 250 mls @ 3,000 mls/hr IV PRN PRN PRN Reason: Hypotension during Dialysis Stop: 09/10/19 16:05 Insulin Aspart (Novolog Vial Sliding Scale -) 1 vial SQ TIDAC [facility]; Protocol Last Admin: 09/10/19 06:54 Dose: 2 units Insulin Aspart (Novolog Vial Sliding Scale -) 1 vial SQ HS [facility]; Protocol Last Admin: 09/09/19 22:42 Dose: 2 units Insulin Detemir (Levemir Vial) 8 units SQ HS [facility] Isosorbide Dinitrate (Isordil -) 20 mg PO DAILY [facility] Last Admin: 09/09/19 14:53 Dose: 20 mg Levothyroxine Sodium (Synthroid -) 125 mcg PO AM [facility] Last Admin: 09/10/19 06:54 Dose: 125 mcg Miscellaneous (Lidoderm Patch Removal) 1 each [facility] DAILY@2200 [facility] Last Admin: 09/09/19 22:28 Dose: Not Given Pantoprazole Sodium (Protonix -) 20 mg PO DAILY [facility] Last Admin: 09/10/19 09:57 Dose: 20 mg - Objective Vital Signs: Vital Signs Temperature 99.5 F 09/10/19 06:00 Pulse Rate 100 H 09/10/19 06:00 Respiratory Rate 20 09/10/19 06:00 Blood Pressure 103/72 09/10/19 06:00 O2 Sat by Pulse Oximetry (%) 93 L 09/09/19 21:00 Constitutional: Yes: No Distress, Calm, Thin Neck: Yes: Supple Cardiovascular: Yes: Regular Rate and Rhythm Respiratory: Yes: Regular, CTA Bilaterally Gastrointestinal: Yes: Normal Bowel Sounds, Soft Edema: No Labs: CBC, BMP 09/08/19 13:33 09/08/19 12:55 INR, PTT INR 1.08 (0.83-1.09) 09/08/19 13:33 - ....Imaging EKG: Report Reviewed (Bi-V paced @ 103) Problem List - Problems (1) Biventricular ICD (implantable cardioverter-defibrillator) in place Code(s): Z95.810 - PRESENCE OF AUTOMATIC (IMPLANTABLE) CARDIAC DEFIBRILLATOR (2) Cellulitis of right foot Code(s): L03.115 - CELLULITIS OF RIGHT LOWER LIMB (3) Diabetes Code(s): E11.9 - TYPE 2 DIABETES MELLITUS WITHOUT COMPLICATIONS Qualifiers: Diabetes mellitus type: type 2 Chronic kidney disease stage: on chronic dialysis (4) ESRD (end stage renal disease) Code(s): N18.6 - END STAGE RENAL DISEASE (5) HTN (hypertension) Code(s): I10 - ESSENTIAL (PRIMARY) HYPERTENSION (6) Hypothyroid Code(s): E03.9 - HYPOTHYROIDISM, UNSPECIFIED Qualifiers: Hypothyroidism type: unspecified Qualified Code(s): E03.9 - Hypothyroidism , unspecified (7) Cardiomyopathy Code(s): I42.9 - CARDIOMYOPATHY, UNSPECIFIED Qualifiers: Cardiomyopathy type: unspecified Qualified Code(s): I42.9 - Cardiomyopathy , unspecified Assessment/Plan 1. ESRD on HD via PC 2. Cardiomyopathy s/p MORT[employer]AGE LO[employer] OFFICER ORIGINATOR/ICD 3. HTN 4. Rt Foot cellulitis 5. Type 2 DM 6. Hypothyroidism 7. Dementia Plan 1. HD per renal 2. wound care, abx per ID, insulin, resume ARB for renovascular protection, interrogate MORTGAGE LO[employer] OFFICER ORIGINATOR-D 3. can stop lasix of he does not make much urine 4. Echo to assess ventricular and valve fxn
[2019-09-10] MEDS ORDERED: SODIUM CHLORIDE 250 ML IV PRN (12:05)
--- NOTE | 2019-09-10 12:05 | PN ---
Progress Note, Physician History of Present Illness: Pt seen and examined at bedside. He is awake and alert. He denies shortness of breath. - Current Medication List Current Medications: Active Medications Acetaminophen (Tylenol -) 650 mg PO Q6H PRN PRN Reason: FEVER Last Admin: 09/09/19 05:42 Dose: 650 mg Donepezil HCl (Aricept -) 10 mg PO DAILY [facility] Last Admin: 09/10/19 09:57 Dose: 10 mg Furosemide (Lasix -) 20 mg PO DAILY [facility] Last Admin: 09/10/19 09:57 Dose: 20 mg Heparin Sodium (Porcine) (Heparin -) 5,000 unit SQ BID [facility] Last Admin: 09/10/19 09:57 Dose: 5,000 unit Cefazolin Sodium 1 gm/ (Dextrose) 50 mls @ 100 mls/hr IVPB DAILY [facility] Last Admin: 09/10/19 09:58 Dose: 100 mls/hr Sodium Chloride (Normal Saline -) 250 mls @ 3,000 mls/hr IV PRN PRN PRN Reason: Hypotension during Dialysis Stop: 09/10/19 16:05 Insulin Aspart (Novolog Vial Sliding Scale -) 1 vial SQ TIDAC [facility]; Protocol Last Admin: 09/10/19 06:54 Dose: 2 units Insulin Aspart (Novolog Vial Sliding Scale -) 1 vial SQ HS [facility]; Protocol Last Admin: 09/09/19 22:42 Dose: 2 units Insulin Detemir (Levemir Vial) 8 units SQ HS [facility] Isosorbide Dinitrate (Isordil -) 20 mg PO DAILY [facility] Last Admin: 09/09/19 14:53 Dose: 20 mg Levothyroxine Sodium (Synthroid -) 125 mcg PO AM [facility] Last Admin: 09/10/19 06:54 Dose: 125 mcg Miscellaneous (Lidoderm Patch Removal) 1 each MC DAILY@2200 [facility] Last Admin: 09/09/19 22:28 Dose: Not Given Pantoprazole Sodium (Protonix -) 20 mg PO DAILY [facility] Last Admin: 09/10/19 09:57 Dose: 20 mg - Objective Vital Signs: Vital Signs Temperature 99.5 F 09/10/19 06:00 Pulse Rate 100 H 09/10/19 06:00 Respiratory Rate 20 09/10/19 06:00 Blood Pressure 103/72 09/10/19 06:00 O2 Sat by Pulse Oximetry (%) 93 L 09/09/19 21:00 Constitutional: Yes: Calm Eyes: Yes: Conjunctiva Clear HENT: Yes: Atraumatic Cardiovascular: Yes: S1, S2 Respiratory: Yes: CTA Bilaterally Gastrointestinal: Yes: Soft Genitourinary: Yes: WNL Musculoskeletal: Yes: WNL Edema: No Integumentary: Yes: WNL Neurological: Yes: Oriented Psychiatric: Yes: Oriented Labs: CBC, BMP 09/08/19 13:33 09/08/19 12:55 INR, PTT INR 1.08 (0.83-1.09) 09/08/19 13:33 Problem List - Problems (1) Cellulitis of right foot Code(s): L03.115 - CELLULITIS OF RIGHT LOWER LIMB (2) Diabetes Code(s): E11.9 - TYPE 2 DIABETES MELLITUS WITHOUT COMPLICATIONS (3) ESRD (end stage renal disease) Code(s): N18.6 - END STAGE RENAL DISEASE (4) HTN (hypertension) Code(s): I10 - ESSENTIAL (PRIMARY) HYPERTENSION (5) Hypothyroid Code(s): E03.9 - HYPOTHYROIDISM, UNSPECIFIED Assessment/Plan Current Medications Generic Name Dose Route Start Last Admin Trade Name Freq PRN Reason Stop Dose Admin Acetaminophen 650 mg 09/08/19 19:59 09/09/19 05:42 Tylenol - PO 650 mg Q6H PRN Administration FEVER Donepezil HCl 10 mg 09/09/19 10:00 09/10/19 09:57 Aricept - PO 10 mg DAILY [facility] Administration Furosemide 20 mg 09/09/19 10:00 09/10/19 09:57 Lasix - PO 20 mg DAILY [facility] Administration Heparin Sodium (Porcine) 5,000 unit 09/08/19 22:00 09/10/19 09:57 Heparin - SQ 5,000 unit BID [facility] Administration Cefazolin Sodium 1 gm/ 50 mls @ 100 mls/hr 09/09/19 14:00 09/10/19 09:58 Dextrose IVPB 100 mls/hr DAILY [facility] Administration Sodium Chloride 250 mls @ 3,000 mls/hr 09/09/19 16:05 Normal Saline - IV 09/10/19 16:05 PRN PRN Hypotension during Dialysis Insulin Aspart 1 vial 09/10/19 07:00 09/10/19 06:54 Novolog Vial Sliding Scale - SQ 2 units TIDAC [facility] Administration Protocol Insulin Aspart 1 vial 09/09/19 22:00 09/09/19 22:42 Novolog Vial Sliding Scale - SQ 2 units HS [facility] Administration Protocol Insulin Detemir 8 units 09/10/19 22:00 Levemir Vial SQ HS [facility] Isosorbide Dinitrate 20 mg 09/09/19 10:00 09/09/19 14:53 Isordil - PO 20 mg DAILY [facility] Administration Levothyroxine Sodium 125 mcg 09/09/19 07:00 09/10/19 06:54 Synthroid - PO 125 mcg AM [facility] Administration Miscellaneous 1 each 09/08/19 22:00 09/09/19 22:28 Lidoderm Patch Removal MC Not Given DAILY@2200 [facility] Pantoprazole Sodium 20 mg 09/09/19 10:00 09/10/19 09:57 Protonix - PO 20 mg DAILY [facility] Administration Impression 1. ESRD 2. HTN 3. cellulitis 4. DM 5. hypothyroidism Plan - HD tomorrow - HD today - wound care - abx per primary team - send HD info to [facility]
[2019-09-10] MEDS: ISOSORBIDE DINITRATE 20 MG TABLET (FP) PO SCH (12:49)
--- NOTE | 2019-09-10 20:18 | PN ---
Progress Note, Physician History of Present Illness: no appetite had bm belly ache - Current Medication List Current Medications: Active Medications Acetaminophen (Tylenol -) 650 mg PO Q6H PRN PRN Reason: FEVER Last Admin: 09/09/19 05:42 Dose: 650 mg Donepezil HCl (Aricept -) 10 mg PO DAILY [facility] Last Admin: 09/10/19 09:57 Dose: 10 mg Furosemide (Lasix -) 20 mg PO DAILY [facility] Last Admin: 09/10/19 09:57 Dose: 20 mg Heparin Sodium (Porcine) (Heparin -) 5,000 unit SQ BID [facility] Last Admin: 09/10/19 09:57 Dose: 5,000 unit Cefazolin Sodium 1 gm/ (Dextrose) 50 mls @ 100 mls/hr IVPB DAILY [facility] Last Admin: 09/10/19 09:58 Dose: 100 mls/hr Sodium Chloride (Normal Saline -) 250 mls @ 3,000 mls/hr IV PRN PRN PRN Reason: Hypotension during Dialysis Stop: 09/11/19 12:05 Insulin Aspart (Novolog Vial Sliding Scale -) 1 vial SQ TIDAC [facility]; Protocol Last Admin: 09/10/19 17:03 Dose: 2 units Insulin Aspart (Novolog Vial Sliding Scale -) 1 vial SQ HS [facility]; Protocol Last Admin: 09/09/19 22:42 Dose: 2 units Insulin Detemir (Levemir Vial) 8 units SQ [facility] Isosorbide Dinitrate (Isordil -) 20 mg PO DAILY [facility] Last Admin: 09/10/19 12:49 Dose: 20 mg Levothyroxine Sodium (Synthroid -) 125 mcg PO AM [facility] Last Admin: 09/10/19 06:54 Dose: 125 mcg Miscellaneous (Lidoderm Patch Removal) 1 each MC DAILY@2200 [facility] Last Admin: 09/09/19 22:28 Dose: Not Given Pantoprazole Sodium (Protonix -) 20 mg PO DAILY [facility] Last Admin: 09/10/19 09:57 Dose: 20 mg - Objective Vital Signs: Vital Signs Temperature 98.5 F 09/10/19 18:00 Pulse Rate 95 H 09/10/19 18:00 Respiratory Rate 20 09/10/19 18:00 Blood Pressure 133/82 09/10/19 18:00 O2 Sat by Pulse Oximetry (%) 93 L 09/10/19 09:00 Constitutional: Yes: No Distress HENT: Yes: Atraumatic Neck: Yes: Supple Cardiovascular: Yes: Regular Rate and Rhythm Respiratory: Yes: CTA Bilaterally Gastrointestinal: Yes: Normal Bowel Sounds Extremities: Yes: Delayed Capillary Refill Edema: No Neurological: Yes: Alert, Oriented Labs: CBC, BMP 09/08/19 13:33 09/08/19 12:55 INR, PTT INR 1.08 (0.83-1.09) 09/08/19 13:33 Problem List - Problems (1) Cellulitis of right foot Assessment/Plan: iv abx id on board Code(s): L03.115 - CELLULITIS OF RIGHT LOWER LIMB (2) HTN (hypertension) Assessment/Plan: monitor Code(s): I10 - ESSENTIAL (PRIMARY) HYPERTENSION (3) Diabetes Assessment/Plan: insulin bgms Code(s): E11.9 - TYPE 2 DIABETES MELLITUS WITHOUT COMPLICATIONS Qualifiers: Diabetes mellitus type: type 2 Chronic kidney disease stage: on chronic dialysis (4) ESRD (end stage renal disease) Assessment/Plan: renal consult monitor Code(s): N18.6 - END STAGE RENAL DISEASE (5) Hypothyroid Assessment/Plan: on meds check tsh endo consult Code(s): E03.9 - HYPOTHYROIDISM, UNSPECIFIED Qualifiers: Hypothyroidism type: unspecified Qualified Code(s): E03.9 - Hypothyroidism , unspecified
[2019-09-10] MEDS ORDERED: MAG HYDROX/AL HYDROX/SIMETH 30 ML UNIT-DOSE CUP PO PRN (20:19)
[2019-09-10] MEDS: INSULIN (LEVEMIR) 100 UNITS/ML UNITS SQ SCH (21:19)
[2019-09-10] MEDS: ACETAMINOPHEN 325 MG TABLET (FP) PO PRN (21:25)
[2019-09-11] MEDS: LIDOCAINE PATCH REMOVAL MC SCH ×2 (00:17→22:50)
[2019-09-11] MEDS: LEVOTHYROXINE NA 125 MCG TABLET (FP) PO SCH (06:07)
[2019-09-11] MEDS ORDERED: DEXTROSE 50%-WATER - 25 GM/50 ML VIAL IVPUSH ONE (06:09)
[2019-09-11] MEDS ORDERED: DEXTROSE 50%-WATER - 25 GM/50 ML VIAL ONE (06:15)
[2019-09-11] MEDS: INSULIN SLIDING SCALE (NOVOLOG) 1 VIAL SQ SCH ×4 (06:31→21:51)
--- NOTE | 2019-09-11 10:18 | PN ---
Progress Note (short form) - Note Progress Note: erythema of the right foot improved on hd now c/o foot pain Vital Signs Period Temp Pulse Resp BP Sys/Palacios Pulse Ox Last 24 Hr 97.4 F-98.5 F 78-99 18-20 120-155/80-99 99 cor-rrr lungs clear right foot erythema improved +DTI right heel CBC, BMP 09/08/19 13:33 09/08/19 12:55 Microbiology 09/08/19 16:38 Urine - Urine Clean Catch Urine Culture - Final Normal Urogenital [place] 09/08/19 13:35 Blood - Peripheral Venous Blood Culture - Preliminary NO GROWTH OBTAINED AFTER 48 HOURS, INCUBATION TO CONTINUE FOR 3 DAYS. 09/08/19 13:35 Blood - Peripheral Venous Blood Culture - Preliminary NO GROWTH OBTAINED AFTER 48 HOURS, INCUBATION TO CONTINUE FOR 3 DAYS. a/p cellulitis resolving on cefazolin, can switch to po keflex 500 mg daily for another week off load right heel suggest vascular to see to evaluate the heel esrd/hd Problem List - Problems (1) Cellulitis of right foot Code(s): L03.115 - CELLULITIS OF RIGHT LOWER LIMB (2) ESRD (end stage renal disease) Code(s): N18.6 - END STAGE RENAL DISEASE (3) Diabetes Code(s): E11.9 - TYPE 2 DIABETES MELLITUS WITHOUT COMPLICATIONS Qualifiers: Diabetes mellitus type: type 2 Chronic kidney disease stage: on chronic dialysis
[2019-09-11] MEDS: PANTOPRAZOLE 40 MG TABLET (FP) PO SCH (11:18)
[2019-09-11] MEDS ORDERED: ceFAZolin SODIUM 1 GM VIAL ONE (14:20)
[2019-09-11] MEDS ORDERED: DEXTROSE 5%-WATER - 50 ML IVPB ONE (14:20)
[2019-09-11] MEDS: ACETAMINOPHEN 325 MG TABLET (FP) PO PRN (14:22)
[2019-09-11] MEDS: CEFAZOLIN 1 GM in DEXTROSE 5%-WATER - 50 ML IVPB SCH (14:22)
[2019-09-11] MEDS: DONEPEZIL HCL 10 MG TABLET (FP) PO SCH (14:22)
[2019-09-11] MEDS: ISOSORBIDE DINITRATE 20 MG TABLET (FP) PO SCH (14:23)
[2019-09-11] MEDS: HEPARIN NA (PORCINE) 5,000 UNITS/ML 1ML VIAL SQ SCH ×2 (14:23→22:48)
[2019-09-11] MEDS: FUROSEMIDE 20 MG TABLET (FP) PO SCH (14:23)
--- NOTE | 2019-09-11 15:43 | PN ---
Progress Note, Physician History of Present Illness: Denies chest pain or dyspnea, had not had STEEL HANDLER-D interrogated in 7 years! - Current Medication List Current Medications: Active Medications Acetaminophen (Tylenol -) 650 mg PO Q6H PRN PRN Reason: FEVER Last Admin: 09/11/19 14:22 Dose: 650 mg Al Hydroxide/Mg Hydroxide (Mylanta Oral Suspension -) 30 ml PO Q6H PRN PRN Reason: DYSPEPSIA Last Admin: 09/10/19 21:25 Dose: 30 ml Donepezil HCl (Aricept -) 10 mg PO DAILY [facility] Last Admin: 09/11/19 14:22 Dose: 10 mg Furosemide (Lasix -) 20 mg PO DAILY [facility] Last Admin: 09/11/19 14:23 Dose: Not Given Heparin Sodium (Porcine) (Heparin -) 5,000 unit SQ BID [facility] Last Admin: 09/11/19 14:23 Dose: Not Given Cefazolin Sodium 1 gm/ (Dextrose) 50 mls @ 100 mls/hr IVPB DAILY [facility] Last Admin: 09/11/19 14:22 Dose: 100 mls/hr Sodium Chloride (Normal Saline -) 250 mls @ 3,000 mls/hr IV PRN PRN PRN Reason: Hypotension during Dialysis Stop: 09/11/19 12:05 Insulin Aspart (Novolog Vial Sliding Scale -) 1 vial SQ TIDAC [facility]; Protocol Last Admin: 09/11/19 14:19 Dose: Not Given Insulin Aspart (Novolog Vial Sliding Scale -) 1 vial SQ HS [facility]; Protocol Last Admin: 09/10/19 21:19 Dose: 2 units Insulin Detemir (Levemir Vial) 8 units SQ HS [facility] Last Admin: 09/10/19 21:19 Dose: 8 units Isosorbide Dinitrate (Isordil -) 20 mg PO DAILY [facility] Last Admin: 09/11/19 14:23 Dose: 20 mg Levothyroxine Sodium (Synthroid -) 125 mcg PO AM [facility] Last Admin: 09/11/19 06:07 Dose: 125 mcg Miscellaneous (Lidoderm Patch Removal) 1 each MC DAILY@2200 [facility] Last Admin: 09/11/19 00:17 Dose: Not Given Pantoprazole Sodium (Protonix -) 40 mg PO DAILY [facility] Last Admin: 09/11/19 11:18 Dose: 40 mg - Objective Vital Signs: Vital Signs Temperature 97.4 F L 09/11/19 08:35 Pulse Rate 91 H 09/11/19 12:15 Respiratory Rate 18 09/11/19 12:15 Blood Pressure 142/89 09/11/19 12:15 O2 Sat by Pulse Oximetry (%) 99 09/10/19 21:00 Constitutional: Yes: No Distress, Calm, Thin Neck: Yes: Supple Cardiovascular: Yes: Regular Rate and Rhythm Respiratory: Yes: Regular, CTA Bilaterally Gastrointestinal: Yes: Normal Bowel Sounds, Soft Edema: No Labs: CBC, BMP 09/08/19 13:33 09/08/19 12:55 INR, PTT INR 1.08 (0.83-1.09) 09/08/19 13:33 Problem List - Problems (1) Biventricular ICD (implantable cardioverter-defibrillator) in place Code(s): Z95.810 - PRESENCE OF AUTOMATIC (IMPLANTABLE) CARDIAC DEFIBRILLATOR (2) Cellulitis of right foot Code(s): L03.115 - CELLULITIS OF RIGHT LOWER LIMB (3) Diabetes Code(s): E11.9 - TYPE 2 DIABETES MELLITUS WITHOUT COMPLICATIONS Qualifiers: Diabetes mellitus type: type 2 Chronic kidney disease stage: on chronic dialysis (4) ESRD (end stage renal disease) Code(s): N18.6 - END STAGE RENAL DISEASE (5) HTN (hypertension) Code(s): I10 - ESSENTIAL (PRIMARY) HYPERTENSION (6) Hypothyroid Code(s): E03.9 - HYPOTHYROIDISM, UNSPECIFIED Qualifiers: Hypothyroidism type: unspecified Qualified Code(s): E03.9 - Hypothyroidism , unspecified (7) Cardiomyopathy Code(s): I42.9 - CARDIOMYOPATHY, UNSPECIFIED Qualifiers: Cardiomyopathy type: unspecified Qualified Code(s): I42.9 - Cardiomyopathy , unspecified Assessment/Plan 1. ESRD on HD via PC 2. Cardiomyopathy s/p STEEL HANDLER/ICD 3. HTN 4. Rt Foot cellulitis 5. Type 2 DM 6. Hypothyroidism 7. Dementia Plan 1. HD per renal 2. wound care, abx per ID, insulin, resume ARB for renovascular protection, interrogate STEEL HANDLER-D 3. can stop lasix of he does not make much urine 4. Echo to assess ventricular and valve fxn
--- NOTE | 2019-09-11 15:58 | PN ---
Progress Note, Physician History of Present Illness: events noted - Current Medication List Current Medications: Active Medications Acetaminophen (Tylenol -) 650 mg PO Q6H PRN PRN Reason: FEVER Last Admin: 09/11/19 14:22 Dose: 650 mg Al Hydroxide/Mg Hydroxide (Mylanta Oral Suspension -) 30 ml PO Q6H PRN PRN Reason: DYSPEPSIA Last Admin: 09/10/19 21:25 Dose: 30 ml Donepezil HCl (Aricept -) 10 mg PO DAILY [facility] Last Admin: 09/11/19 14:22 Dose: 10 mg Furosemide (Lasix -) 20 mg PO DAILY [facility] Last Admin: 09/11/19 14:23 Dose: Not Given Heparin Sodium (Porcine) (Heparin -) 5,000 unit SQ BID [facility] Last Admin: 09/11/19 14:23 Dose: Not Given Cefazolin Sodium 1 gm/ (Dextrose) 50 mls @ 100 mls/hr IVPB DAILY [facility] Last Admin: 09/11/19 14:22 Dose: 100 mls/hr Sodium Chloride (Normal Saline -) 250 mls @ 3,000 mls/hr IV PRN PRN PRN Reason: Hypotension during Dialysis Stop: 09/11/19 12:05 Insulin Aspart (Novolog Vial Sliding Scale -) 1 vial SQ TIDAC [facility]; Protocol Last Admin: 09/11/19 14:19 Dose: Not Given Insulin Aspart (Novolog Vial Sliding Scale -) 1 vial SQ HS [facility]; Protocol Last Admin: 09/10/19 21:19 Dose: 2 units Insulin Detemir (Levemir Vial) 8 units SQ HS [facility] Last Admin: 09/10/19 21:19 Dose: 8 units Isosorbide Dinitrate (Isordil -) 20 mg PO DAILY [facility] Last Admin: 09/11/19 14:23 Dose: 20 mg Levothyroxine Sodium (Synthroid -) 125 mcg PO AM [facility] Last Admin: 09/11/19 06:07 Dose: 125 mcg Miscellaneous (Lidoderm Patch Removal) 1 each MC DAILY@2200 [facility] Last Admin: 09/11/19 00:17 Dose: Not Given Pantoprazole Sodium (Protonix -) 40 mg PO DAILY [facility] Last Admin: 09/11/19 11:18 Dose: 40 mg - Objective Vital Signs: Vital Signs Temperature 97.4 F L 09/11/19 08:35 Pulse Rate 91 H 11/28/19 12:15 Respiratory Rate 18 09/11/19 12:15 Blood Pressure 142/89 09/11/19 12:15 O2 Sat by Pulse Oximetry (%) 99 09/10/19 21:00 Constitutional: Yes: No Distress HENT: Yes: Atraumatic Neck: Yes: Supple Cardiovascular: Yes: Regular Rate and Rhythm Respiratory: Yes: CTA Bilaterally Gastrointestinal: Yes: Normal Bowel Sounds Extremities: Yes: Other (R bin cellulitis) Edema: Yes Edema: LLE: Trace, RLE: Trace Neurological: Yes: Alert Labs: CBC, BMP 09/08/19 13:33 09/08/19 12:55 INR, PTT INR 1.08 (0.83-1.09) 09/08/19 13:33 Problem List - Problems (1) Cellulitis of right foot Assessment/Plan: iv abx id on board Code(s): L03.115 - CELLULITIS OF RIGHT LOWER LIMB (2) HTN (hypertension) Assessment/Plan: monitor Code(s): I10 - ESSENTIAL (PRIMARY) HYPERTENSION (3) Diabetes Assessment/Plan: insulin bgms Code(s): E11.9 - TYPE 2 DIABETES MELLITUS WITHOUT COMPLICATIONS Qualifiers: Diabetes mellitus type: type 2 Chronic kidney disease stage: on chronic dialysis (4) ESRD (end stage renal disease) Assessment/Plan: renal consult monitor Code(s): N18.6 - END STAGE RENAL DISEASE (5) Hypothyroid Assessment/Plan: on meds check tsh endo consult Code(s): E03.9 - HYPOTHYROIDISM, UNSPECIFIED Qualifiers: Hypothyroidism type: unspecified Qualified Code(s): E03.9 - Hypothyroidism , unspecified
--- NOTE | 2019-09-11 16:05 | RAPID ---
<Radha Guidry - Last Filed: 09/11/19 18:35> Physical Examination Vital Signs: Vital Signs Temperature 97.4 F L 09/11/19 08:35 Pulse Rate 91 H 09/11/19 12:15 Respiratory Rate 18 09/11/19 12:15 Blood Pressure 142/89 09/11/19 12:15 O2 Sat by Pulse Oximetry (%) 99 09/10/19 21:00 Labs: CBC, BMP 09/08/19 13:33 09/08/19 12:55 Rapid Response - Rapid Response Assessment: S Rapid response was called overhead. Team quickly responded and pt was found on the floor on his right side near the side of his bed. Nursing staff was present as well. Pt reported turning off the bed alarm and trying to get out of bed to go to the bathroom then fell. He denies loss of consciousness. He reports head pain, bilateral shoulder pain, right rib pain, and right hip pain. O 132/76 HR 109 alert and oriented x 3, intermittently confused lungs CTA heart paced rhythm, left chest tender to palpation NBS, no tenderness on palpation grossly neurologically intact, not cooperative with full neuro exam A/P #mechanical fall -EKG- paced, no ST changes -troponin- elevated, but lower than yesterday's value -CT head- negative for acute changes, waiting for radiology read -xrays- b/l shoulders, right rib, right hip- no acute fracture or pneumothorax noted, waiting for radiology read -primary team was notified -fall precautions -f/u radiology readings <Barber Pickett - Last Filed: 09/12/19 18:47> Physical Examination Vital Signs: Labs: CBC, BMP 09/12/19 09:45 09/12/19 09:45 Critical Care Total Critical Care Time (in minutes): 40 Critical Care Statement: The care of this patient involved high complexity decision making to prevent further life threatening deterioration of the patient 's condition and/or to evaluate & treat vital organ system(s) failure or risk of failure.
--- NOTE | 2019-09-11 16:11 | PN ---
Progress Note, Physician History of Present Illness: Pt seen and examined at bedside. He is awake and alert. He tolerated HD. - Current Medication List Current Medications: Active Medications Acetaminophen (Tylenol -) 650 mg PO Q6H PRN PRN Reason: FEVER Last Admin: 09/11/19 14:22 Dose: 650 mg Al Hydroxide/Mg Hydroxide (Mylanta Oral Suspension -) 30 ml PO Q6H PRN PRN Reason: DYSPEPSIA Last Admin: 09/10/19 21:25 Dose: 30 ml Donepezil HCl (Aricept -) 10 mg PO DAILY [facility] Last Admin: 09/11/19 14:22 Dose: 10 mg Furosemide (Lasix -) 20 mg PO DAILY [facility] Last Admin: 09/11/19 14:23 Dose: Not Given Heparin Sodium (Porcine) (Heparin -) 5,000 unit SQ BID [facility] Last Admin: 09/11/19 14:23 Dose: Not Given Cefazolin Sodium 1 gm/ (Dextrose) 50 mls @ 100 mls/hr IVPB DAILY [facility] Last Admin: 09/11/19 14:22 Dose: 100 mls/hr Sodium Chloride (Normal Saline -) 250 mls @ 3,000 mls/hr IV PRN PRN PRN Reason: Hypotension during Dialysis Stop: 09/11/19 12:05 Insulin Aspart (Novolog Vial Sliding Scale -) 1 vial SQ TIDAC [facility]; Protocol Last Admin: 09/11/19 14:19 Dose: Not Given Insulin Aspart (Novolog Vial Sliding Scale -) 1 vial SQ HS [facility]; Protocol Last Admin: 09/10/19 21:19 Dose: 2 units Insulin Detemir (Levemir Vial) 8 units SQ HS [facility] Last Admin: 09/10/19 21:19 Dose: 8 units Isosorbide Dinitrate (Isordil -) 20 mg PO DAILY [facility] Last Admin: 09/11/19 14:23 Dose: 20 mg Levothyroxine Sodium (Synthroid -) 125 mcg PO AM [facility] Last Admin: 09/11/19 06:07 Dose: 125 mcg Miscellaneous (Lidoderm Patch Removal) 1 each MC DAILY@2200 [facility] Last Admin: 09/11/19 00:17 Dose: Not Given Pantoprazole Sodium (Protonix -) 40 mg PO DAILY [facility] Last Admin: 09/11/19 11:18 Dose: 40 mg - Objective Vital Signs: Vital Signs Temperature 97.4 F L 09/11/19 08:35 Pulse Rate 91 H 09/11/19 12:15 Respiratory Rate 18 09/11/19 12:15 Blood Pressure 142/89 09/11/19 12:15 O2 Sat by Pulse Oximetry (%) 99 09/10/19 21:00 Constitutional: Yes: Calm Eyes: Yes: Conjunctiva Clear HENT: Yes: Atraumatic Neck: Yes: Supple Cardiovascular: Yes: S1, S2 Respiratory: Yes: CTA Bilaterally Gastrointestinal: Yes: Soft Genitourinary: Yes: WNL Edema: No Neurological: Yes: Oriented Psychiatric: Yes: Oriented Labs: CBC, BMP 09/08/19 13:33 09/08/19 12:55 INR, PTT INR 1.08 (0.83-1.09) 09/08/19 13:33 Problem List - Problems (1) Cellulitis of right foot Code(s): L03.115 - CELLULITIS OF RIGHT LOWER LIMB (2) Diabetes Code(s): E11.9 - TYPE 2 DIABETES MELLITUS WITHOUT COMPLICATIONS Qualifiers: Diabetes mellitus type: type 2 Chronic kidney disease stage: on chronic dialysis (3) ESRD (end stage renal disease) Code(s): N18.6 - END STAGE RENAL DISEASE (4) HTN (hypertension) Code(s): I10 - ESSENTIAL (PRIMARY) HYPERTENSION (5) Hypothyroid Code(s): E03.9 - HYPOTHYROIDISM, UNSPECIFIED Qualifiers: Hypothyroidism type: unspecified Qualified Code(s): E03.9 - Hypothyroidism , unspecified Assessment/Plan Current Medications Generic Name Dose Route Start Last Admin Trade Name Freq PRN Reason Stop Dose Admin Acetaminophen 650 mg 09/08/19 19:59 09/11/19 14:22 Tylenol - PO 650 mg Q6H PRN Administration FEVER Al Hydroxide/Mg Hydroxide 30 ml 09/10/19 20:19 09/10/19 21:25 Mylanta Oral Suspension - PO 30 ml Q6H PRN Administration DYSPEPSIA Donepezil HCl 10 mg 09/09/19 10:00 09/11/19 14:22 Aricept - PO 10 mg DAILY [facility] Administration Furosemide 20 mg 09/09/19 10:00 09/11/19 14:23 Lasix - PO Not Given DAILY [facility] Heparin Sodium (Porcine) 5,000 unit 09/08/19 22:00 09/11/19 14:23 Heparin - SQ Not Given BID [facility] Cefazolin Sodium 1 gm/ 50 mls @ 100 mls/hr 09/09/19 14:00 09/11/19 14:22 Dextrose IVPB 100 mls/hr DAILY [facility] Administration Sodium Chloride 250 mls @ 3,000 mls/hr 09/10/19 12:05 Normal Saline - IV 09/11/19 12:05 PRN PRN Hypotension during Dialysis Insulin Aspart 1 vial 09/10/19 07:00 09/11/19 14:19 Novolog Vial Sliding Scale - SQ Not Given TIDAC [facility] Protocol Insulin Aspart 1 vial 09/09/19 22:00 09/10/19 21:19 Novolog Vial Sliding Scale - SQ 2 units HS [facility] Administration Protocol Insulin Detemir 8 units 09/10/19 22:00 09/10/19 21:19 Levemir Vial SQ 8 units HS [facility] Administration Isosorbide Dinitrate 20 mg 09/09/19 10:00 09/11/19 14:23 Isordil - PO 20 mg DAILY [facility] Administration Levothyroxine Sodium 125 mcg 09/09/19 07:00 09/11/19 06:07 Synthroid - PO 125 mcg AM [facility] Administration Miscellaneous 1 each 09/08/19 22:00 09/11/19 00:17 Lidoderm Patch Removal MC Not Given DAILY@2200 [facility] Pantoprazole Sodium 40 mg 09/11/19 10:00 09/11/19 11:18 Protonix - PO 40 mg DAILY [facility] Administration Impression 1. ESRD 2. HTN 3. cellulitis 4. DM 5. hypothyroidism 6. hx of CVA Plan - HD today - cont wound care - renal diet - will need HD placement - d/c lasix
[2019-09-11] MEDS: INSULIN (LEVEMIR) 100 UNITS/ML UNITS SQ SCH (21:51)
[2019-09-12] MEDS: LEVOTHYROXINE NA 125 MCG TABLET (FP) PO SCH (05:59)
[2019-09-12] MEDS: INSULIN SLIDING SCALE (NOVOLOG) 1 VIAL SQ SCH ×4 (05:59→21:05)
[2019-09-12] MEDS: ACETAMINOPHEN 325 MG TABLET (FP) PO PRN (08:42)
[2019-09-12] MEDS ORDERED: ceFAZolin SODIUM 1 GM VIAL ONE (09:36)
[2019-09-12] MEDS ORDERED: DEXTROSE 5%-WATER - 50 ML IVPB ONE (09:36)
[2019-09-12] MEDS: DONEPEZIL HCL 10 MG TABLET (FP) PO SCH (09:56)
[2019-09-12] MEDS: PANTOPRAZOLE 40 MG TABLET (FP) PO SCH (09:56)
[2019-09-12] MEDS: FUROSEMIDE 20 MG TABLET (FP) PO SCH (09:56)
[2019-09-12] MEDS: CEFAZOLIN 1 GM in DEXTROSE 5%-WATER - 50 ML IVPB SCH (09:57)
[2019-09-12] MEDS ORDERED: PT OWN MED DRAWER 7, Y5N ONE (09:59)
[2019-09-12] MEDS: ISOSORBIDE DINITRATE 20 MG TABLET (FP) PO SCH (10:00)
[2019-09-12 10:14] LABS: BASO % 0.5 % (0-2.0); EOS % 0.4 % (0-4.5); HEMATOCRIT 36.3 % (35.4-49); HEMOGLOBIN 12.1 GM/dL (11.7-16.9); LYMPH % 9.4 % (8-40); MCH 31.2 pg (25.7-33.7); MCHC 33.4 g/dl (32.0-35.9); MEAN CELL VOLUME 93.6 fl (80-96); MONO % 5.1 % (3.8-10.2); NEUT % 84.6 % (42.8-82.8); PLATELET COUNT 203 K/MM3 (134-434); RBC 3.88 M/mm3 (4.00-5.60); RDW 15.4 % (11.9-15.9); WHITE BLOOD COUNT 9.3 K/mm3 (4.0-10.0)
[2019-09-12 10:42] LABS: ALBUMIN 2.4 g/dl (3.4-5.0); BILIRUBIN,TOTAL 0.6 mg/dL (0.2-1); BLOOD UREA NITROGEN 32.6 mg/dL (7-18); CREATININE 3.2 mg/dL (0.55-1.3); POTASSIUM 3.4 mmol/L (3.5-5.1); TOT PROT 6.2 g/dl (6.4-8.2)
--- NOTE | 2019-09-12 10:58 | CONSULT ---
Consult Consult Specialty:: podiatry Reason for Consultation:: right heel ulceration - History of Present Illness Chief Complaint: Mr. Chau is a 69 y/o male with PMH significant for HTN, DM, pacemaker, ESRD on dialysis T//, presenting today with right foot pain and swelling. Recently came from [place]. Painin right heel. Has allevyn on foot. Denies any f/c/n/v/sob. 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) Renal/: Yes: Renal Failure, Hemodialysis Musculoskeletal: Yes: Other (Right plantarmedial heel with deep tissue injury , underlying hematoma which as now opened and draining, no erythema, pain on palpatin noted, no streaking, no edema, no bone exposed) Endocrine: Yes: Diabetes Insipidus - Smoking History Smoking history: Never smoked - Social History Usual Living Arrangement: Alf History of Recent Travel: Yes (just arrived yesterday) Home Medications - Allergies Allergies/Adverse Reactions: Allergies Allergy/AdvReac Type Severity Reaction Status Date / Time No Known Allergies Allergy Verified 09/08/19 12:11 - Home Medications Home Medications: Ambulatory Orders Donepezil HCl 10 mg PO DAILY 09/08/19 Furosemide [Lasix -] 20 mg PO DAILY 09/08/19 Glimepiride 4 mg PO DAILY 09/08/19 Insulin NPH Hum/Reg Insulin Hm [Humulin 70-30 Vial] 10 unit SQ BID 09/08/19 Irbesartan/Hydrochlorothiazide [Irbesartan-Hctz 150-12.5 mg Tb] 1 each PO DAILY 09/08/19 Isosorbide Dinitrate [Isordil] 20 mg PO DAILY 09/08/19 LORazepam [Ativan] 2 mg PO HS 09/08/19 Levothyroxine [Synthroid -] 125 mcg PO DAILY 09/08/19 Omeprazole 20 mg PO DAILY 09/08/19 Temazepam [Restoril] 30 mg PO HS 09/08/19 Physical Exam Vital Signs: Vital Signs Temperature 97.9 F 09/12/19 07:46 Pulse Rate 100 H 09/12/19 07:46 Respiratory Rate 20 09/12/19 07:46 Blood Pressure 153/94 09/12/19 07:46 O2 Sat by Pulse Oximetry (%) 90 L 09/11/19 21:00 Labs: CBC, BMP 09/12/19 09:45 09/12/19 09:45 Assessment/Plan 69 y/o male with DTI tothe right heel, multiple small scabs noted on digits. Evaluated and reviewed Will order peter/pvr to workup vascular status Right heel to be offloaded; refuses to wear offloading boots so wear allevyn Will need wound care follow up once d/c cont offloading Will f/u vascular studies once completed given no changes on xray and superficial nature I doubt MRI would be helpful; unlikely osteo at this time.
--- NOTE | 2019-09-12 12:54 | PN ---
Progress Note, Physician History of Present Illness: stable - Current Medication List Current Medications: Active Medications Acetaminophen (Tylenol -) 650 mg PO Q6H PRN PRN Reason: FEVER Last Admin: 09/12/19 08:42 Dose: 650 mg Al Hydroxide/Mg Hydroxide (Mylanta Oral Suspension -) 30 ml PO Q6H PRN PRN Reason: DYSPEPSIA Last Admin: 09/10/19 21:25 Dose: 30 ml Donepezil HCl (Aricept -) 10 mg PO DAILY [facility] Last Admin: 09/12/19 09:56 Dose: 10 mg Furosemide (Lasix -) 20 mg PO DAILY [facility] Last Admin: 09/12/19 09:56 Dose: 20 mg Heparin Sodium (Porcine) (Heparin -) 5,000 unit SQ BID [facility] Last Admin: 09/11/19 22:48 Dose: Not Given Cefazolin Sodium 1 gm/ (Dextrose) 50 mls @ 100 mls/hr IVPB DAILY [facility] Last Admin: 09/12/19 09:57 Dose: 100 mls/hr Sodium Chloride (Normal Saline -) 250 mls @ 3,000 mls/hr IV PRN PRN PRN Reason: Hypotension during Dialysis Stop: 09/11/19 12:05 Insulin Aspart (Novolog Vial Sliding Scale -) 1 vial SQ TIDAC [facility]; Protocol Last Admin: 09/12/19 05:59 Dose: Not Given Insulin Aspart (Novolog Vial Sliding Scale -) 1 vial SQ HS [facility]; Protocol Last Admin: 09/11/19 21:51 Dose: 3 units Insulin Detemir (Levemir Vial) 8 units SQ HS [facility] Last Admin: 09/11/19 21:51 Dose: Not Given Isosorbide Dinitrate (Isordil -) 20 mg PO DAILY [facility] Last Admin: 09/12/19 10:00 Dose: 20 mg Levothyroxine Sodium (Synthroid -) 125 mcg PO AM [facility] Last Admin: 09/12/19 05:59 Dose: 125 mcg Miscellaneous (Lidoderm Patch Removal) 1 each MC DAILY@2200 [facility] Last Admin: 09/11/19 22:50 Dose: Not Given Pantoprazole Sodium (Protonix -) 40 mg PO DAILY [facility] Last Admin: 09/12/19 09:56 Dose: 40 mg - Objective Vital Signs: Vital Signs Temperature 97.9 F 09/12/19 07:46 Pulse Rate 100 H 09/12/19 07:46 Respiratory Rate 20 09/12/19 07:46 Blood Pressure 153/94 09/12/19 07:46 O2 Sat by Pulse Oximetry (%) 90 L 09/11/19 21:00 Constitutional: Yes: No Distress HENT: Yes: Atraumatic Neck: Yes: Supple Cardiovascular: Yes: Regular Rate and Rhythm Respiratory: Yes: CTA Bilaterally Gastrointestinal: Yes: Normal Bowel Sounds Extremities: Yes: WNL Neurological: Yes: Alert Labs: CBC, BMP 09/12/19 09:45 09/12/19 09:45 INR, PTT INR 1.08 (0.83-1.09) 09/08/19 13:33 Problem List - Problems (1) Cellulitis of right foot Assessment/Plan: iv abx id on board Code(s): L03.115 - CELLULITIS OF RIGHT LOWER LIMB (2) HTN (hypertension) Assessment/Plan: monitor Code(s): I10 - ESSENTIAL (PRIMARY) HYPERTENSION (3) Diabetes Assessment/Plan: insulin bgms Code(s): E11.9 - TYPE 2 DIABETES MELLITUS WITHOUT COMPLICATIONS Qualifiers: Diabetes mellitus type: type 2 Chronic kidney disease stage: on chronic dialysis (4) ESRD (end stage renal disease) Assessment/Plan: renal consult monitor Code(s): N18.6 - END STAGE RENAL DISEASE (5) Hypothyroid Assessment/Plan: on meds check tsh endo consult Code(s): E03.9 - HYPOTHYROIDISM, UNSPECIFIED Qualifiers: Hypothyroidism type: unspecified Qualified Code(s): E03.9 - Hypothyroidism , unspecified
--- NOTE | 2019-09-12 13:42 | ECHO ---
Name: LASHAUN ROQUEJESSICA Exam:Adult Echocardiogram Study Date: 09/12/2019 11:29 AM Age: 69 yrs Height: 66 in Weight: 173 lb BSA: 1.9 m2 MMode/2D Measurements & Calculations IVSd: 1.00 cm Ao root diam: 4.1 cm LVIDd: 6.5 cm LA dimension: 3.5 cm LVIDs: 5.2 cm ACS: 2.0 cm LVPWd: 0.87 cm IVSs: 0.96 cm LVPWs: 1.3 cm EDV(Teich): 216.9 ml ESV(Teich): 127.6 ml EPSS: 1.9 cm Doppler Measurements & Calculations MV E max : 108.1 cm/sec AI P1/2t: 363.6 msec MV A max : 44.4 cm/sec MV E/A: 2.4 AI max : 420.1 cm/sec MR max : 505.7 cm/sec AI max P.7 mmHg MR max P.1 mmHg AI dec slope: 338.3 cm/sec2 TR max : 239.2 cm/sec PI end-d : 105.9 cm/sec TR max P.9 mmHg Med Peak E' : 3.9 cm/sec Med E/e': 27.7 Lat Peak E' : 7.1 cm/sec Lat E/e': 15.2 Left Ventricle The left ventricle is moderately dilated. Left ventricular systolic function is severely reduced. Eje ction Fraction = 20-25%. Wall motion is preserved at the base. The remaining segments are diffusely/severel y hypokinetic. The left ventricular apex is not well visualized. Right Ventricle There is a pacemaker lead in the right ventricle. The right ventricle is grossly normal size. The rig ht ventricular systolic function is grossly normal. Atria The left atrium is borderline dilated. Right atrial size is normal. Mitral Valve The mitral valve is grossly normal. There is no mitral valve stenosis. There is moderate to severe mi tral regurgitation. Tricuspid Valve The tricuspid valve is normal in structure and function. There is mild tricuspid regurgitation. Right ventricular systolic pressure is normal. Aortic Valve The aortic valve opens well. There is mild aortic sclerosis.;. No hemodynamically significant valvula r aortic stenosis. Mild to moderate aortic regurgitation. Pulmonic Valve The pulmonic valve is not well seen, but is grossly normal. There is no pulmonic valvular stenosis. M ild pulmonic valvular regurgitation. Great Vessels Mild aortic root dilatation. Pericardium/Pleura There is no pericardial effusion. Interpretation Summary The left ventricle is moderately dilated. Left ventricular systolic function is severely reduced. Ejection Fraction = 20-25%. Wall motion is preserved at the base. The remaining segments are diffusely/severely hypokinetic. The left ventricular apex is not well visualized. There is a pacemaker lead in the right ventricle. There is moderate to severe mitral regurgitation. There is mild tricuspid regurgitation. There is mild aortic sclerosis.; Mild to moderate aortic regurgitation. Mild aortic root dilatation. There is no pericardial effusion. MD Petersen *Luis Fernando 09/12/2019 01:41 PM
--- NOTE | 2019-09-12 13:49 | PN ---
Progress Note, Physician History of Present Illness: Denies chest pain or dyspnea, tolerating PT with walker assistance, had not had PRODUCT SPECIALIST-D interrogated in 7 years! Post mechanical fall in AM. - Current Medication List Current Medications: Active Medications Acetaminophen (Tylenol -) 650 mg PO Q6H PRN PRN Reason: FEVER Last Admin: 09/12/19 08:42 Dose: 650 mg Al Hydroxide/Mg Hydroxide (Mylanta Oral Suspension -) 30 ml PO Q6H PRN PRN Reason: DYSPEPSIA Last Admin: 09/10/19 21:25 Dose: 30 ml Donepezil HCl (Aricept -) 10 mg PO DAILY [facility] Last Admin: 09/12/19 09:56 Dose: 10 mg Furosemide (Lasix -) 20 mg PO DAILY [facility] Last Admin: 09/12/19 09:56 Dose: 20 mg Heparin Sodium (Porcine) (Heparin -) 5,000 unit SQ BID [facility] Last Admin: 09/11/19 22:48 Dose: Not Given Cefazolin Sodium 1 gm/ (Dextrose) 50 mls @ 100 mls/hr IVPB DAILY [facility] Last Admin: 09/12/19 09:57 Dose: 100 mls/hr Sodium Chloride (Normal Saline -) 250 mls @ 3,000 mls/hr IV PRN PRN PRN Reason: Hypotension during Dialysis Stop: 09/11/19 12:05 Insulin Aspart (Novolog Vial Sliding Scale -) 1 vial SQ TIDAC [facility]; Protocol Last Admin: 09/12/19 12:59 Dose: 3 units Insulin Aspart (Novolog Vial Sliding Scale -) 1 vial SQ HS [facility]; Protocol Last Admin: 09/11/19 21:51 Dose: 3 units Insulin Detemir (Levemir Vial) 8 units SQ HS [facility] Last Admin: 09/11/19 21:51 Dose: Not Given Isosorbide Dinitrate (Isordil -) 20 mg PO DAILY [facility] Last Admin: 09/12/19 10:00 Dose: 20 mg Levothyroxine Sodium (Synthroid -) 125 mcg PO AM [facility] Last Admin: 09/12/19 05:59 Dose: 125 mcg Miscellaneous (Lidoderm Patch Removal) 1 each MC DAILY@2200 [facility] Last Admin: 09/11/19 22:50 Dose: Not Given Pantoprazole Sodium (Protonix -) 40 mg PO DAILY [facility] Last Admin: 09/12/19 09:56 Dose: 40 mg - Objective Vital Signs: Vital Signs Temperature 97.9 F 09/12/19 07:46 Pulse Rate 100 H 09/12/19 07:46 Respiratory Rate 20 09/12/19 07:46 Blood Pressure 153/94 09/12/19 07:46 O2 Sat by Pulse Oximetry (%) 90 L 09/11/19 21:00 Constitutional: Yes: No Distress, Calm, Thin Neck: Yes: Supple Cardiovascular: Yes: Regular Rate and Rhythm Respiratory: Yes: Regular, CTA Bilaterally Gastrointestinal: Yes: Normal Bowel Sounds, Soft Edema: No Labs: CBC, BMP 09/12/19 09:45 09/12/19 09:45 INR, PTT INR 1.08 (0.83-1.09) 09/08/19 13:33 Problem List - Problems (1) Biventricular ICD (implantable cardioverter-defibrillator) in place Code(s): Z95.810 - PRESENCE OF AUTOMATIC (IMPLANTABLE) CARDIAC DEFIBRILLATOR (2) Cellulitis of right foot Code(s): L03.115 - CELLULITIS OF RIGHT LOWER LIMB (3) Diabetes Code(s): E11.9 - TYPE 2 DIABETES MELLITUS WITHOUT COMPLICATIONS (4) ESRD (end stage renal disease) Code(s): N18.6 - END STAGE RENAL DISEASE (5) HTN (hypertension) Code(s): I10 - ESSENTIAL (PRIMARY) HYPERTENSION (6) Hypothyroid Code(s): E03.9 - HYPOTHYROIDISM, UNSPECIFIED Qualifiers: Qualified Code(s): E03.9 - Hypothyroidism, unspecified (7) Cardiomyopathy Code(s): I42.9 - CARDIOMYOPATHY, UNSPECIFIED Qualifiers: Qualified Code(s): I42.9 - Cardiomyopathy, unspecified Assessment/Plan 09/12/2019 Moderate dilated with severely decreased LVEF 20-25%, preserved wall motion at base, rest of segments severely HK, mod-severe MR, mild TR, pacemaker RV, mild-mod AR, mild ao dilatation 4.1 cm 1. ESRD on HD via PC 2. Severe cardiomyopathy s/p PRODUCT SPECIALIST/ICD 3. HTN heart disease 4. Rt Foot cellulitis, r/o PAD 5. Type 2 DM 6. Hypothyroidism 7. Dementia Plan 1. HD per renal, replete K 2. Wound care, abx per ID, insulin, resume ARB for renovascular protection, interrogate PRODUCT SPECIALIST-D 3. Can stop lasix if he does not make much urine 4. Add carvedilol 3.125 bid with uptitrate as hemodynamics tolerate, on isordil add hydralazine for BiDil 5. F/u CORINA/PVR
--- NOTE | 2019-09-12 14:12 | PN ---
Progress Note (short form) - Note Progress Note: still c/o rt foot pain BGM improving Vital Signs Period Temp Pulse Resp BP Sys/Palacios Pulse Ox Last 24 Hr 97.6 F-98.3 F 78-100 18-20 130-155/67-94 90 PE AOx3 Neck: Supple, No JVD Lungs: CTA CVS: s1S2 Abd: Benign Ext: Rt left erythema Neuro: No focal deficit CMP Sodium 140 mmol/L (136-145) 09/12/19 09:45 Potassium 3.4 mmol/L (3.5-5.1) L 09/12/19 09:45 Chloride 103 mmol/L (98-107) 09/12/19 09:45 Carbon Dioxide 29 mmol/L (21-32) 09/12/19 09:45 Anion Gap 8 MMOL/L (8-16) 09/12/19 09:45 BUN 32.6 mg/dL (7-18) H 09/12/19 09:45 Creatinine 3.2 mg/dL (0.55-1.3) H 09/12/19 09:45 Est GFR (CKD-EPI)AfAm 21.56 09/12/19 09:45 Est GFR (CKD-EPI)NonAf 18.60 09/12/19 09:45 POC Glucometer 240 UNITS (80-120) 09/12/19 12:57 Random Glucose 178 mg/dL (74-106) H 09/12/19 09:45 Hemoglobin A1c % 7.2 % (4.2-6.3) H 09/09/19 15:00 Calcium 8.0 mg/dL (8.5-10.1) L 09/12/19 09:45 Total Bilirubin 0.6 mg/dL (0.2-1) 09/12/19 09:45 AST 43 U/L (15-37) H 09/12/19 09:45 ALT 31 U/L (13-61) 09/12/19 09:45 Alkaline Phosphatase 180 U/L (45-117) H 09/12/19 09:45 Creatine Kinase 143 U/L (26-308) 09/10/19 20:45 Creatine Kinase Index 1.3 % (0.0-5.0) 09/08/19 12:55 CK-MB (CK-2) 5.0 ng/mL (0.5-3.6) H 09/08/19 12:55 Troponin I 0.17 ng/ml (0.00-0.05) H 09/11/19 16:13 Total Protein 6.2 g/dl (6.4-8.2) L 09/12/19 09:45 Albumin 2.4 g/dl (3.4-5.0) L 09/12/19 09:45 Triglycerides 120 mg/dL (0-150) 09/09/19 04:26 Cholesterol 94 mg/dL (50-200) 09/09/19 04:26 Total LDL Cholesterol 45 mg/dL (5-100) 09/09/19 04:26 HDL Cholesterol 37 mg/dL (40-60) L 09/09/19 04:26 TSH 3.73 uIU/ml (0.358-3.74) 09/09/19 04:26 Current Medications Generic Name Dose Route Start Last Admin Trade Name Freq PRN Reason Stop Dose Admin Acetaminophen 650 mg 09/08/19 19:59 09/12/19 08:42 Tylenol - PO 650 mg Q6H PRN Administration FEVER Al Hydroxide/Mg Hydroxide 30 ml 09/10/19 20:19 09/10/19 21:25 Mylanta Oral Suspension - PO 30 ml Q6H PRN Administration DYSPEPSIA Donepezil HCl 10 mg 09/09/19 10:00 09/12/19 09:56 Aricept - PO 10 mg DAILY [facility] Administration Furosemide 20 mg 09/09/19 10:00 09/12/19 09:56 Lasix - PO 20 mg DAILY [facility] Administration Heparin Sodium (Porcine) 5,000 unit 09/08/19 22:00 09/11/19 22:48 Heparin - SQ Not Given BID [facility] Cefazolin Sodium 1 gm/ 50 mls @ 100 mls/hr 09/09/19 14:00 09/12/19 09:57 Dextrose IVPB 100 mls/hr DAILY [facility] Administration Sodium Chloride 250 mls @ 3,000 mls/hr 09/10/19 12:05 Normal Saline - IV 09/11/19 12:05 PRN PRN Hypotension during Dialysis Insulin Aspart 1 vial 09/10/19 07:00 09/12/19 12:59 Novolog Vial Sliding Scale - SQ 3 units TIDAC [facility] Administration Protocol Insulin Aspart 1 vial 09/09/19 22:00 09/11/19 21:51 Novolog Vial Sliding Scale - SQ 3 units HS [facility] Administration Protocol Insulin Detemir 8 units 09/10/19 22:00 09/11/19 21:51 Levemir Vial SQ Not Given HS [facility] Isosorbide Dinitrate 20 mg 09/09/19 10:00 09/12/19 10:00 Isordil - PO 20 mg DAILY [facility] Administration Levothyroxine Sodium 125 mcg 09/09/19 07:00 09/12/19 05:59 Synthroid - PO 125 mcg AM [facility] Administration Miscellaneous 1 each 09/08/19 22:00 09/11/19 22:50 Lidoderm Patch Removal MC Not Given DAILY@2200 [facility] Pantoprazole Sodium 40 mg 09/11/19 10:00 09/12/19 09:56 Protonix - PO 40 mg DAILY [facility] Administration AP: Rt Foot cellulitis T2DM Hypothyroidism ESRD Episode of hypoglycemia as pt didin't eat dinner the previous night. Off Glimepiride b/o increase risk of hypoglycemia with long acting Sulfonylurea in pt on HD. BGM Q ACHS. To give 100 KCal snack when FS <100 or D50 if FS <60 Decrease Levemir 4 units daily at HS. To hold Levemir dose whenever pt doesn't eat dinner and or when FS at HS is <150. Novolog SS coverage premeals and HS Abx as per ID Will f/u
--- NOTE | 2019-09-12 14:18 | EKG ---
Test Reason : Blood Pressure : / mmHG Vent. Rate : 100 BPM Atrial Rate : 100 BPM P-R Int : 144 ms QRS Dur : 128 ms QT Int : 316 ms P-R-T Axes : 030 162 -39 degrees QTc Int : 407 ms Atrial-sensed ventricular-paced rhythm Biventricular pacemaker detected ABNORMAL ECG WHEN COMPARED WITH ECG OF 08-SEP-2019 16:53, VENT. RATE HAS DECREASED BY 3 BPM Confirmed by VENKATESH SPENCER MD ([id number]) on 09/12/2019 2:18:20 PM Referred By: Confirmed By:VENKATESH SPENCER MD
[2019-09-12] MEDS ORDERED: SODIUM CHLORIDE 250 ML IV PRN (14:25)
--- NOTE | 2019-09-12 14:25 | PN ---
Progress Note, Physician History of Present Illness: Pt seen and examined at bedside. He is awake and alert. He denies shortness of breath. - Current Medication List Current Medications: Active Medications Acetaminophen (Tylenol -) 650 mg PO Q6H PRN PRN Reason: FEVER Last Admin: 09/12/19 08:42 Dose: 650 mg Al Hydroxide/Mg Hydroxide (Mylanta Oral Suspension -) 30 ml PO Q6H PRN PRN Reason: DYSPEPSIA Last Admin: 09/10/19 21:25 Dose: 30 ml Carvedilol (Coreg -) 3.125 mg PO BID [facility] Donepezil HCl (Aricept -) 10 mg PO DAILY [facility] Last Admin: 09/12/19 09:56 Dose: 10 mg Furosemide (Lasix -) 20 mg PO DAILY [facility] Last Admin: 09/12/19 09:56 Dose: 20 mg Heparin Sodium (Porcine) (Heparin -) 5,000 unit SQ BID [facility] Last Admin: 09/11/19 22:48 Dose: Not Given Cefazolin Sodium 1 gm/ (Dextrose) 50 mls @ 100 mls/hr IVPB DAILY [facility] Last Admin: 09/12/19 09:57 Dose: 100 mls/hr Sodium Chloride (Normal Saline -) 250 mls @ 3,000 mls/hr IV PRN PRN PRN Reason: Hypotension during Dialysis Stop: 09/11/19 12:05 Insulin Aspart (Novolog Vial Sliding Scale -) 1 vial SQ TIDAC [facility]; Protocol Insulin Aspart (Novolog Vial Sliding Scale -) 1 vial SQ HS [facility]; Protocol Insulin Detemir (Levemir Vial) 4 units SQ HS [facility] Isosorbide Dinitrate (Isordil -) 20 mg PO DAILY [facility] Last Admin: 09/12/19 10:00 Dose: 20 mg Levothyroxine Sodium (Synthroid -) 125 mcg PO AM [facility] Last Admin: 09/12/19 05:59 Dose: 125 mcg Miscellaneous (Lidoderm Patch Removal) 1 each MC DAILY@2200 [facility] Last Admin: 09/11/19 22:50 Dose: Not Given Pantoprazole Sodium (Protonix -) 40 mg PO DAILY [facility] Last Admin: 09/12/19 09:56 Dose: 40 mg - Objective Vital Signs: Vital Signs Temperature 97.9 F 09/12/19 07:46 Pulse Rate 100 H 09/12/19 07:46 Respiratory Rate 20 09/12/19 07:46 Blood Pressure 153/94 09/12/19 07:46 O2 Sat by Pulse Oximetry (%) 90 L 09/11/19 21:00 Constitutional: Yes: Calm Eyes: Yes: Conjunctiva Clear HENT: Yes: Atraumatic Neck: Yes: Supple Cardiovascular: Yes: S1, S2 Respiratory: Yes: CTA Bilaterally Gastrointestinal: Yes: Soft Genitourinary: Yes: WNL Musculoskeletal: Yes: WNL Edema: No Integumentary: Yes: WNL Neurological: Yes: Oriented Psychiatric: Yes: Oriented Labs: CBC, BMP 09/12/19 09:45 09/12/19 09:45 INR, PTT INR 1.08 (0.83-1.09) 09/08/19 13:33 Problem List - Problems (1) Cellulitis of right foot Code(s): L03.115 - CELLULITIS OF RIGHT LOWER LIMB (2) Diabetes Code(s): E11.9 - TYPE 2 DIABETES MELLITUS WITHOUT COMPLICATIONS Qualifiers: Diabetes mellitus type: type 2 Chronic kidney disease stage: on chronic dialysis (3) ESRD (end stage renal disease) Code(s): N18.6 - END STAGE RENAL DISEASE (4) HTN (hypertension) Code(s): I10 - ESSENTIAL (PRIMARY) HYPERTENSION (5) Hypothyroid Code(s): E03.9 - HYPOTHYROIDISM, UNSPECIFIED Qualifiers: Hypothyroidism type: unspecified Qualified Code(s): E03.9 - Hypothyroidism , unspecified Assessment/Plan Current Medications Generic Name Dose Route Start Last Admin Trade Name Freq PRN Reason Stop Dose Admin Acetaminophen 650 mg 09/08/19 19:59 09/12/19 08:42 Tylenol - PO 650 mg Q6H PRN Administration FEVER Al Hydroxide/Mg Hydroxide 30 ml 09/10/19 20:19 09/10/19 21:25 Mylanta Oral Suspension - PO 30 ml Q6H PRN Administration DYSPEPSIA Carvedilol 3.125 mg 09/12/19 14:10 Coreg - PO BID [facility] Donepezil HCl 10 mg 09/09/19 10:00 09/12/19 09:56 Aricept - PO 10 mg DAILY [facility] Administration Furosemide 20 mg 09/09/19 10:00 09/12/19 09:56 Lasix - PO 20 mg DAILY [facility] Administration Heparin Sodium (Porcine) 5,000 unit 09/08/19 22:00 09/11/19 22:48 Heparin - SQ Not Given BID [facility] Cefazolin Sodium 1 gm/ 50 mls @ 100 mls/hr 09/09/19 14:00 09/12/19 09:57 Dextrose IVPB 100 mls/hr DAILY [facility] Administration Sodium Chloride 250 mls @ 3,000 mls/hr 09/10/19 12:05 Normal Saline - IV 09/11/19 12:05 PRN PRN Hypotension during Dialysis Insulin Aspart 1 vial 09/12/19 14:11 Novolog Vial Sliding Scale - SQ TIDAC [facility] Protocol Insulin Aspart 1 vial 09/12/19 14:11 Novolog Vial Sliding Scale - SQ HS [facility] Protocol Insulin Detemir 4 units 09/12/19 22:00 Levemir Vial SQ HS [facility] Isosorbide Dinitrate 20 mg 09/09/19 10:00 09/12/19 10:00 Isordil - PO 20 mg DAILY [facility] Administration Levothyroxine Sodium 125 mcg 09/09/19 07:00 09/12/19 05:59 Synthroid - PO 125 mcg AM [facility] Administration Miscellaneous 1 each 09/08/19 22:00 09/11/19 22:50 Lidoderm Patch Removal MC Not Given DAILY@2200 [facility] Pantoprazole Sodium 40 mg 09/11/19 10:00 09/12/19 09:56 Protonix - PO 40 mg DAILY [facility] Administration Impression 1. ESRD 2. HTN 3. cellulitis 4. DM 5. hypothyroidism 6. hx of CVA Plan - HD tomorrow - 3 k bath - renal diet - cont wound care - will need HD placement
[2019-09-12] MEDS: CARVEDILOL 3.125 MG TABLET (FP) PO SCH ×2 (17:22→21:00)
[2019-09-12] MEDS: HEPARIN NA (PORCINE) 5,000 UNITS/ML 1ML VIAL SQ SCH ×2 (17:26→21:00)
[2019-09-12] MEDS ORDERED: INSULIN (NOVOLOG) ASPART 100 UNITS/ML 10ML VIAL ONE (18:40)
[2019-09-12] MEDS: INSULIN (LEVEMIR) 100 UNITS/ML UNITS SQ SCH (21:00)
[2019-09-12] MEDS: LIDOCAINE PATCH REMOVAL MC SCH (21:04)
[2019-09-12] MEDS ORDERED: INSULIN (LEVEMIR) 100 UNITS/ML UNITS SQ SCH (22:00)
[2019-09-12] MEDS ORDERED: diphenhydrAMINE HCL 25 MG CAPSULE (FP) PO ONE (22:35)
[2019-09-13] MEDS: LEVOTHYROXINE NA 125 MCG TABLET (FP) PO SCH (06:03)
[2019-09-13] MEDS: INSULIN SLIDING SCALE (NOVOLOG) 1 VIAL SQ SCH ×4 (06:04→21:14)
--- NOTE | 2019-09-13 11:26 | PN ---
Progress Note (short form) - Note Progress Note: Renal follow up for ESRD on HD coverage for Dr. Dubose Seen and examined during dialysis BP 138/100, goal UF 1.5L no sob, cp, fever or chills has abd cramping, no N/V Vital Signs Temperature 97.8 F 09/13/19 08:50 Pulse Rate 81 09/13/19 10:55 Respiratory Rate 18 09/13/19 10:55 Blood Pressure 138/100 09/13/19 10:55 O2 Sat by Pulse Oximetry (%) 92 L 09/12/19 22:00 Intake & Output 09/10/19 09/11/19 09/12/19 09/13/19 23:59 23:59 23:59 23:59 Intake Total 778 924 0057 200 Output Total 2500 Balance 450 -2000 1510 200 NAD awake and alert RRR CTA soft NT/ND no LE edema CBC, BMP 09/12/19 09:45 09/12/19 09:45 Current Medications Acetaminophen (Tylenol -) 650 mg PO Q6H PRN PRN Reason: FEVER Last Admin: 09/12/19 08:42 Dose: 650 mg Al Hydroxide/Mg Hydroxide (Mylanta Oral Suspension -) 30 ml PO Q6H PRN PRN Reason: DYSPEPSIA Last Admin: 09/10/19 21:25 Dose: 30 ml Carvedilol (Coreg -) 3.125 mg PO BID [facility] Last Admin: 09/12/19 21:00 Dose: 3.125 mg Donepezil HCl (Aricept -) 10 mg PO DAILY [facility] Last Admin: 09/12/19 09:56 Dose: 10 mg Heparin Sodium (Porcine) (Heparin -) 5,000 unit SQ BID [facility] Last Admin: 09/12/19 21:00 Dose: 5,000 unit Cefazolin Sodium 1 gm/ (Dextrose) 50 mls @ 100 mls/hr IVPB DAILY [facility] Last Admin: 09/12/19 09:57 Dose: 100 mls/hr Sodium Chloride (Normal Saline -) 250 mls @ 3,000 mls/hr IV PRN PRN PRN Reason: Hypotension during Dialysis Stop: 09/11/19 12:05 Sodium Chloride (Normal Saline -) 250 mls @ 3,000 mls/hr IV PRN PRN PRN Reason: Hypotension during Dialysis Stop: 09/13/19 14:25 Insulin Aspart (Novolog Vial Sliding Scale -) 1 vial SQ TIDAC [facility]; Protocol Last Admin: 09/13/19 06:04 Dose: 2 units Insulin Aspart (Novolog Vial Sliding Scale -) 1 vial SQ HS [facility]; Protocol Last Admin: 09/12/19 21:05 Dose: Not Given Insulin Detemir (Levemir Vial) 4 units SQ HS [facility] Last Admin: 09/12/19 21:00 Dose: 4 units Isosorbide Dinitrate (Isordil -) 20 mg PO DAILY [facility] Last Admin: 09/12/19 10:00 Dose: 20 mg Levothyroxine Sodium (Synthroid -) 125 mcg PO AM [facility] Last Admin: 09/13/19 06:03 Dose: 125 mcg Miscellaneous (Lidoderm Patch Removal) 1 each MC DAILY@2200 [facility] Last Admin: 09/12/19 21:04 Dose: Not Given Pantoprazole Sodium (Protonix -) 40 mg PO DAILY [facility] Last Admin: 09/12/19 09:56 Dose: 40 mg Impression 1. ESRD 2. HTN 3. cellulitis 4. DM 5. hypothyroidism 6. hx of CVA Plan Tolerating dialysis well, goal UF 1.5L continue abx as per primary team for cellulitis continue present antihypertenisve meds to be give post HD Insulin as needed Next dialysis on Sunday Morro Calixto DO
[2019-09-13] MEDS ORDERED: PT OWN MED DRAWER 7, Y5N ONE (11:30)
[2019-09-13] MEDS ORDERED: DEXTROSE 5%-WATER - 50 ML IVPB ONE (11:30)
[2019-09-13] MEDS ORDERED: ceFAZolin SODIUM 1 GM VIAL ONE (11:30)
[2019-09-13] MEDS: CARVEDILOL 3.125 MG TABLET (FP) PO SCH ×2 (12:05→21:12)
[2019-09-13] MEDS: PANTOPRAZOLE 40 MG TABLET (FP) PO SCH (12:05)
[2019-09-13] MEDS: ISOSORBIDE DINITRATE 20 MG TABLET (FP) PO SCH (12:05)
[2019-09-13] MEDS: DONEPEZIL HCL 10 MG TABLET (FP) PO SCH (12:05)
[2019-09-13] MEDS: HEPARIN NA (PORCINE) 5,000 UNITS/ML 1ML VIAL SQ SCH ×2 (12:05→21:12)
[2019-09-13] MEDS: CEFAZOLIN 1 GM in DEXTROSE 5%-WATER - 50 ML IVPB SCH (12:05)
--- NOTE | 2019-09-13 14:52 | PN ---
Progress Note, Physician - Current Medication List Current Medications: Active Medications Acetaminophen (Tylenol -) 650 mg PO Q6H PRN PRN Reason: FEVER Last Admin: 09/12/19 08:42 Dose: 650 mg Al Hydroxide/Mg Hydroxide (Mylanta Oral Suspension -) 30 ml PO Q6H PRN PRN Reason: DYSPEPSIA Last Admin: 09/10/19 21:25 Dose: 30 ml Carvedilol (Coreg -) 3.125 mg PO BID [facility] Last Admin: 09/13/19 12:05 Dose: 3.125 mg Donepezil HCl (Aricept -) 10 mg PO DAILY [facility] Last Admin: 09/13/19 12:05 Dose: 10 mg Heparin Sodium (Porcine) (Heparin -) 5,000 unit SQ BID [facility] Last Admin: 09/13/19 12:05 Dose: 5,000 unit Cefazolin Sodium 1 gm/ (Dextrose) 50 mls @ 100 mls/hr IVPB DAILY [facility] Last Admin: 09/13/19 12:05 Dose: 100 mls/hr Sodium Chloride (Normal Saline -) 250 mls @ 3,000 mls/hr IV PRN PRN PRN Reason: Hypotension during Dialysis Stop: 09/11/19 12:05 Sodium Chloride (Normal Saline -) 250 mls @ 3,000 mls/hr IV PRN PRN PRN Reason: Hypotension during Dialysis Stop: 09/13/19 14:25 Insulin Aspart (Novolog Vial Sliding Scale -) 1 vial SQ TIDAC [facility]; Protocol Last Admin: 09/13/19 13:47 Dose: Not Given Insulin Aspart (Novolog Vial Sliding Scale -) 1 vial SQ HS [facility]; Protocol Last Admin: 09/12/19 21:05 Dose: Not Given Insulin Detemir (Levemir Vial) 4 units SQ HS [facility] Last Admin: 09/12/19 21:00 Dose: 4 units Isosorbide Dinitrate (Isordil -) 20 mg PO DAILY [facility] Last Admin: 09/13/19 12:05 Dose: 20 mg Levothyroxine Sodium (Synthroid -) 125 mcg PO AM [facility] Last Admin: 09/13/19 06:03 Dose: 125 mcg Miscellaneous (Lidoderm Patch Removal) 1 each MC DAILY@2200 [facility] Last Admin: 09/12/19 21:04 Dose: Not Given Pantoprazole Sodium (Protonix -) 40 mg PO DAILY [facility] Last Admin: 09/13/19 12:05 Dose: 40 mg - Objective Vital Signs: Vital Signs Temperature 97.8 F 09/13/19 08:50 Pulse Rate 84 09/13/19 12:15 Respiratory Rate 18 09/13/19 12:15 Blood Pressure 136/91 09/13/19 12:15 O2 Sat by Pulse Oximetry (%) 92 L 09/13/19 09:00 Constitutional: Yes: No Distress HENT: Yes: Atraumatic Neck: Yes: Supple Cardiovascular: Yes: Regular Rate and Rhythm Respiratory: Yes: CTA Bilaterally Gastrointestinal: Yes: Normal Bowel Sounds Extremities: Yes: WNL Neurological: Yes: Alert, Oriented Labs: CBC, BMP 09/12/19 09:45 09/12/19 09:45 INR, PTT INR 1.08 (0.83-1.09) 09/08/19 13:33 Problem List - Problems (1) Cellulitis of right foot Assessment/Plan: iv abx id on board Code(s): L03.115 - CELLULITIS OF RIGHT LOWER LIMB (2) HTN (hypertension) Assessment/Plan: monitor Code(s): I10 - ESSENTIAL (PRIMARY) HYPERTENSION (3) Diabetes Assessment/Plan: insulin bgms Code(s): E11.9 - TYPE 2 DIABETES MELLITUS WITHOUT COMPLICATIONS Qualifiers: Diabetes mellitus type: type 2 Chronic kidney disease stage: on chronic dialysis (4) ESRD (end stage renal disease) Assessment/Plan: renal consult monitor Code(s): N18.6 - END STAGE RENAL DISEASE (5) Hypothyroid Assessment/Plan: on meds check tsh endo consult Code(s): E03.9 - HYPOTHYROIDISM, UNSPECIFIED Qualifiers: Hypothyroidism type: unspecified Qualified Code(s): E03.9 - Hypothyroidism , unspecified
--- NOTE | 2019-09-13 15:03 | PN ---
Progress Note, Physician History of Present Illness: Denies chest pain or dyspnea, had not had [employer]INE-D interrogated in 7 years! - Current Medication List Current Medications: Active Medications Acetaminophen (Tylenol -) 650 mg PO Q6H PRN PRN Reason: FEVER Last Admin: 09/12/19 08:42 Dose: 650 mg Al Hydroxide/Mg Hydroxide (Mylanta Oral Suspension -) 30 ml PO Q6H PRN PRN Reason: DYSPEPSIA Last Admin: 09/10/19 21:25 Dose: 30 ml Carvedilol (Coreg -) 3.125 mg PO BID [facility] Last Admin: 09/13/19 12:05 Dose: 3.125 mg Donepezil HCl (Aricept -) 10 mg PO DAILY [facility] Last Admin: 09/13/19 12:05 Dose: 10 mg Heparin Sodium (Porcine) (Heparin -) 5,000 unit SQ BID [facility] Last Admin: 09/13/19 12:05 Dose: 5,000 unit Cefazolin Sodium 1 gm/ (Dextrose) 50 mls @ 100 mls/hr IVPB DAILY [facility] Last Admin: 09/13/19 12:05 Dose: 100 mls/hr Sodium Chloride (Normal Saline -) 250 mls @ 3,000 mls/hr IV PRN PRN PRN Reason: Hypotension during Dialysis Stop: 09/11/19 12:05 Sodium Chloride (Normal Saline -) 250 mls @ 3,000 mls/hr IV PRN PRN PRN Reason: Hypotension during Dialysis Stop: 09/13/19 14:25 Insulin Aspart (Novolog Vial Sliding Scale -) 1 vial SQ TIDAC [facility]; Protocol Last Admin: 09/13/19 13:47 Dose: Not Given Insulin Aspart (Novolog Vial Sliding Scale -) 1 vial SQ HS [facility]; Protocol Last Admin: 09/12/19 21:05 Dose: Not Given Insulin Detemir (Levemir Vial) 4 units SQ HS [facility] Last Admin: 09/12/19 21:00 Dose: 4 units Isosorbide Dinitrate (Isordil -) 20 mg PO DAILY [facility] Last Admin: 09/13/19 12:05 Dose: 20 mg Levothyroxine Sodium (Synthroid -) 125 mcg PO AM [facility] Last Admin: 09/13/19 06:03 Dose: 125 mcg Miscellaneous (Lidoderm Patch Removal) 1 each [facility] DAILY@2200 [facility] Last Admin: 09/12/19 21:04 Dose: Not Given Pantoprazole Sodium (Protonix -) 40 mg PO DAILY [facility] Last Admin: 09/13/19 12:05 Dose: 40 mg - Objective Vital Signs: Vital Signs Temperature 97.8 F 09/13/19 08:50 Pulse Rate 84 09/13/19 12:15 Respiratory Rate 18 09/13/19 12:15 Blood Pressure 136/91 09/13/19 12:15 O2 Sat by Pulse Oximetry (%) 92 L 09/13/19 09:00 Constitutional: Yes: No Distress, Calm, Thin Neck: Yes: Supple Cardiovascular: Yes: Regular Rate and Rhythm, Murmur (2/6 SM) Respiratory: Yes: Regular, CTA Bilaterally Gastrointestinal: Yes: Normal Bowel Sounds, Soft Edema: No Labs: CBC, BMP 09/12/19 09:45 09/12/19 09:45 INR, PTT INR 1.08 (0.83-1.09) 09/08/19 13:33 Problem List - Problems (1) Biventricular ICD (implantable cardioverter-defibrillator) in place Code(s): Z95.810 - PRESENCE OF AUTOMATIC (IMPLANTABLE) CARDIAC DEFIBRILLATOR (2) Cellulitis of right foot Code(s): L03.115 - CELLULITIS OF RIGHT LOWER LIMB (3) Diabetes Code(s): E11.9 - TYPE 2 DIABETES MELLITUS WITHOUT COMPLICATIONS Qualifiers: Diabetes mellitus type: type 2 Chronic kidney disease stage: on chronic dialysis (4) ESRD (end stage renal disease) Code(s): N18.6 - END STAGE RENAL DISEASE (5) HTN (hypertension) Code(s): I10 - ESSENTIAL (PRIMARY) HYPERTENSION (6) Hypothyroid Code(s): E03.9 - HYPOTHYROIDISM, UNSPECIFIED Qualifiers: Hypothyroidism type: unspecified Qualified Code(s): E03.9 - Hypothyroidism , unspecified (7) Cardiomyopathy Code(s): I42.9 - CARDIOMYOPATHY, UNSPECIFIED Qualifiers: Cardiomyopathy type: unspecified Qualified Code(s): I42.9 - Cardiomyopathy , unspecified Assessment/Plan 09/12/2019 Moderate dilated with severely decreased LVEF 20-25%, preserved wall motion at base, rest of segments severely HK, mod-severe MR, mild TR, pacemaker RV, mild-mod AR, mild ao dilatation 4.1 cm 1. ESRD on HD via PC 2. Severe cardiomyopathy s/p [employer]/ICD 3. HTN heart disease 4. Rt Foot cellulitis, r/o PAD 5. Type 2 DM Ha1c 7.2% 6. Hypothyroidism 7. Dementia Plan 1. HD per renal, repleted K 2. Wound care, abx per ID, insulin, resume ARB for renovascular protection, interrogate [employer]-D 3. Stopped lasix as he does not make much urine 4. Continue carvedilol 3.125 bid with uptitrate as hemodynamics tolerate, on isordil 20 bid and added hydralazine 25 bid for BiDil 5. F/u CORINA/PVR
[2019-09-13] MEDS: hydrALAZINE HCL 25 MG TABLET (FP) PO SCH ×2 (15:16→21:12)
[2019-09-13 19:08] LABS: HEP B CORE AB, TOT Positive (Negative)
[2019-09-13] MEDS ORDERED: diphenhydrAMINE HCL 25 MG CAPSULE (FP) PO ONE (20:30)
[2019-09-13] MEDS: INSULIN (LEVEMIR) 100 UNITS/ML UNITS SQ SCH (21:12)
[2019-09-13] MEDS: LIDOCAINE PATCH REMOVAL MC SCH (21:13)
[2019-09-13] MEDS ORDERED: ISOSORBIDE DINITRATE 20 MG TABLET (FP) PO SCH (22:00)
[2019-09-14] MEDS: INSULIN SLIDING SCALE (NOVOLOG) 1 VIAL SQ SCH ×4 (07:21→23:38)
[2019-09-14] MEDS: LEVOTHYROXINE NA 125 MCG TABLET (FP) PO SCH (07:21)
[2019-09-14 07:43] LABS: BASO % 0.9 % (0-2.0); EOS % 0.6 % (0-4.5); HEMATOCRIT 35.4 % (35.4-49); HEMOGLOBIN 11.6 GM/dL (11.7-16.9); LYMPH % 15.9 % (8-40); MCH 30.6 pg (25.7-33.7); MCHC 32.7 g/dl (32.0-35.9); MEAN CELL VOLUME 93.6 fl (80-96); MEAN PLT VOLUME 8.1 fl (7.5-11.1); MONO % 6.8 % (3.8-10.2); NEUT % 75.8 % (42.8-82.8); PLATELET COUNT 210 K/MM3 (134-434); RBC 3.79 M/mm3 (4.00-5.60); RDW 14.9 % (11.9-15.9); WHITE BLOOD COUNT 6.9 K/mm3 (4.0-10.0)
[2019-09-14 08:18] LABS: ALBUMIN 2.1 g/dl (3.4-5.0); BILIRUBIN,TOTAL 0.4 mg/dL (0.2-1); BLOOD UREA NITROGEN 30.8 mg/dL (7-18); CALCIUM 8.3 mg/dL (8.5-10.1); CREATININE 3.2 mg/dL (0.55-1.3); POTASSIUM 3.8 mmol/L (3.5-5.1); TOT PROT 5.8 g/dl (6.4-8.2)
[2019-09-14] MEDS ORDERED: ceFAZolin SODIUM 1 GM VIAL ONE (11:45)
[2019-09-14] MEDS ORDERED: DEXTROSE 5%-WATER - 50 ML IVPB ONE (11:45)
[2019-09-14] MEDS: DONEPEZIL HCL 10 MG TABLET (FP) PO SCH (11:47)
[2019-09-14] MEDS: CEFAZOLIN 1 GM in DEXTROSE 5%-WATER - 50 ML IVPB SCH ×2 (11:47→15:46)
[2019-09-14] MEDS: PANTOPRAZOLE 40 MG TABLET (FP) PO SCH (11:47)
[2019-09-14] MEDS: hydrALAZINE HCL 25 MG TABLET (FP) PO SCH ×2 (11:47→23:37)
[2019-09-14] MEDS: CARVEDILOL 3.125 MG TABLET (FP) PO SCH ×2 (11:48→23:37)
[2019-09-14] MEDS: HEPARIN NA (PORCINE) 5,000 UNITS/ML 1ML VIAL SQ SCH ×2 (11:48→23:37)
[2019-09-14] MEDS ORDERED: PT OWN MED DRAWER 7, Y5N ONE (12:24)
[2019-09-14] MEDS: ISOSORBIDE DINITRATE 20 MG TABLET (FP) PO SCH ×2 (12:25→18:59)
--- NOTE | 2019-09-14 14:53 | PN ---
Progress Note, Physician History of Present Illness: having diarrhea c/o abd pain - Current Medication List Current Medications: Active Medications Acetaminophen (Tylenol -) 650 mg PO Q6H PRN PRN Reason: FEVER Last Admin: 09/12/19 08:42 Dose: 650 mg Al Hydroxide/Mg Hydroxide (Mylanta Oral Suspension -) 30 ml PO Q6H PRN PRN Reason: DYSPEPSIA Last Admin: 09/10/19 21:25 Dose: 30 ml Carvedilol (Coreg -) 3.125 mg PO BID [facility] Last Admin: 09/14/19 11:48 Dose: 3.125 mg Donepezil HCl (Aricept -) 10 mg PO DAILY [facility] Last Admin: 09/14/19 11:47 Dose: 10 mg Heparin Sodium (Porcine) (Heparin -) 5,000 unit SQ BID [facility] Last Admin: 09/14/19 11:48 Dose: 5,000 unit Hydralazine HCl (Apresoline -) 25 mg PO BID [facility] Last Admin: 09/14/19 11:47 Dose: 25 mg Cefazolin Sodium 1 gm/ (Dextrose) 50 mls @ 100 mls/hr IVPB DAILY [facility] Last Admin: 09/13/19 12:05 Dose: 100 mls/hr Sodium Chloride (Normal Saline -) 250 mls @ 3,000 mls/hr IV PRN PRN PRN Reason: Hypotension during Dialysis Stop: 09/11/19 12:05 Sodium Chloride (Normal Saline -) 250 mls @ 3,000 mls/hr IV PRN PRN PRN Reason: Hypotension during Dialysis Stop: 09/13/19 14:25 Insulin Aspart (Novolog Vial Sliding Scale -) 1 vial SQ TIDAC [facility]; Protocol Last Admin: 09/14/19 12:48 Dose: 2 units Insulin Aspart (Novolog Vial Sliding Scale -) 1 vial SQ HS [facility]; Protocol Last Admin: 09/13/19 21:14 Dose: Not Given Insulin Detemir (Levemir Vial) 4 units SQ HS [facility] Last Admin: 09/13/19 21:12 Dose: 4 units Isosorbide Dinitrate (Isordil -) 20 mg PO BIDISORDIL [facility] Last Admin: 09/14/19 12:25 Dose: 20 mg Levothyroxine Sodium (Synthroid -) 125 mcg PO AM [facility] Last Admin: 09/14/19 07:21 Dose: 125 mcg Miscellaneous (Lidoderm Patch Removal) 1 each MC DAILY@2200 [facility] Last Admin: 09/13/19 21:13 Dose: Not Given Pantoprazole Sodium (Protonix -) 40 mg PO DAILY [facility] Last Admin: 09/14/19 11:47 Dose: 40 mg - Objective Vital Signs: Vital Signs Temperature 98.2 F 09/14/19 11:27 Pulse Rate 81 09/14/19 11:27 Respiratory Rate 20 09/14/19 11:27 Blood Pressure 124/75 09/14/19 11:27 O2 Sat by Pulse Oximetry (%) 93 L 09/13/19 21:00 Constitutional: Yes: No Distress HENT: Yes: Atraumatic Neck: Yes: Supple Cardiovascular: Yes: Regular Rate and Rhythm Respiratory: Yes: CTA Bilaterally Gastrointestinal: Yes: Normal Bowel Sounds, Tenderness (ruq) Extremities: Yes: WNL Edema: No Peripheral Pulses WNL: Yes Neurological: Yes: Alert, Oriented Labs: CBC, BMP 09/14/19 07:10 09/14/19 07:10 INR, PTT INR 1.08 (0.83-1.09) 09/08/19 13:33 Problem List - Problems (1) Cellulitis of right foot Assessment/Plan: iv abx id on board Code(s): L03.115 - CELLULITIS OF RIGHT LOWER LIMB (2) HTN (hypertension) Assessment/Plan: monitor Code(s): I10 - ESSENTIAL (PRIMARY) HYPERTENSION (3) Diabetes Assessment/Plan: insulin bgms Code(s): E11.9 - TYPE 2 DIABETES MELLITUS WITHOUT COMPLICATIONS Qualifiers: Diabetes mellitus type: type 2 Chronic kidney disease stage: on chronic dialysis (4) ESRD (end stage renal disease) Assessment/Plan: renal consult monitor Code(s): N18.6 - END STAGE RENAL DISEASE (5) Hypothyroid Assessment/Plan: on meds check tsh endo consult Code(s): E03.9 - HYPOTHYROIDISM, UNSPECIFIED Qualifiers: Hypothyroidism type: unspecified Qualified Code(s): E03.9 - Hypothyroidism , unspecified (6) Abdominal pain Assessment/Plan: full liquid diet kub us gb gi consult will send cdiff stool Code(s): R10.9 - UNSPECIFIED ABDOMINAL PAIN
[2019-09-14] MEDS: INSULIN (LEVEMIR) 100 UNITS/ML UNITS SQ SCH (23:37)
[2019-09-14] MEDS: diphenhydrAMINE HCL 25 MG CAPSULE (FP) PO PRN (23:37)
[2019-09-14] MEDS: LIDOCAINE PATCH REMOVAL MC SCH (23:39)
[2019-09-15] MEDS: INSULIN SLIDING SCALE (NOVOLOG) 1 VIAL SQ SCH ×4 (06:41→23:29)
[2019-09-15] MEDS: LEVOTHYROXINE NA 125 MCG TABLET (FP) PO SCH (06:41)
[2019-09-15] MEDS ORDERED: PT OWN MED DRAWER 7, Y5N ONE ×2 (09:48→17:04)
[2019-09-15] MEDS ORDERED: ceFAZolin SODIUM 1 GM VIAL ONE (09:49)
[2019-09-15] MEDS ORDERED: DEXTROSE 5%-WATER - 50 ML IVPB ONE (09:49)
[2019-09-15] MEDS: CEFAZOLIN 1 GM in DEXTROSE 5%-WATER - 50 ML IVPB SCH (09:51)
[2019-09-15] MEDS: PANTOPRAZOLE 40 MG TABLET (FP) PO SCH (09:51)
[2019-09-15] MEDS: ISOSORBIDE DINITRATE 20 MG TABLET (FP) PO SCH ×2 (09:51→17:04)
[2019-09-15] MEDS: CARVEDILOL 3.125 MG TABLET (FP) PO SCH ×2 (09:51→23:20)
[2019-09-15] MEDS: DONEPEZIL HCL 10 MG TABLET (FP) PO SCH (09:51)
[2019-09-15] MEDS: hydrALAZINE HCL 25 MG TABLET (FP) PO SCH ×2 (09:51→23:21)
[2019-09-15] MEDS: HEPARIN NA (PORCINE) 5,000 UNITS/ML 1ML VIAL SQ SCH (09:52)
--- NOTE | 2019-09-15 15:44 | CON.GI ---
Consult Consult Specialty:: GI Referred by:: Medicine Reason for Consultation:: RUQ pain - History of Present Illness Chief Complaint: Leg swelling History of Present Illness: 69M h/o HTN, DM, pacemaker, ESRD on dialysis T//S, ?dementia who presented one week ago for leg pain and swelling, being treated for cellulitis. GI consulted for abdominal pain. Patient is a poor historian. Daughter at bedside reports that she only learned of it on Sunday. It is intermittent. Pt describes as post prandial, RUQ, does not radiate infrascapular, no N/V. No fever/chills. CT and US reviewed, gallstones noted, also minimal gallbladder wall thickening - History Source History Provided By: Patient, Family Member - Past Medical History DIRECTOR STATE PHARMACY: Yes: Dementia Cardio/Vascular: Yes: CHF, HTN, Other ([employer]ER[employer]IST-D) Renal/: Yes: Renal Failure, Hemodialysis Musculoskeletal: Yes: Other (Right plantarmedial heel with deep tissue injury , underlying hematoma which as now opened and draining, no erythema, pain on palpatin noted, no streaking, no edema, no bone exposed) Endocrine: Yes: Diabetes Insipidus - Smoking History Smoking history: Never smoked - Social History Usual Living Arrangement: [facility] History of Recent Travel: Yes (just arrived yesterday) Home Medications - Allergies Allergies/Adverse Reactions: Allergies Allergy/AdvReac Type Severity Reaction Status Date / Time No Known Allergies Allergy Verified 09/08/19 12:11 - Home Medications Home Medications: Ambulatory Orders Furosemide [Lasix -] 20 mg PO DAILY 09/08/19 Insulin NPH Hum/Reg Insulin Hm [Humulin 70-30 Vial] 10 unit SQ BID 09/08/19 Irbesartan/Hydrochlorothiazide [Irbesartan-Hctz 150-12.5 mg Tb] 1 each PO DAILY 09/08/19 Omeprazole 20 mg PO DAILY 09/08/19 Carvedilol [Coreg -] 3.125 mg PO BID #60 tablet 09/13/19 Cephalexin [Keflex] 500 mg PO DAILY #5 capsule 09/13/19 Donepezil HCl 10 mg PO DAILY #30 tablet 09/13/19 Furosemide [Lasix -] 20 mg PO DAILY #30 tablet 09/13/19 Isosorbide Dinitrate [Isordil] 20 mg PO DAILY #30 tablet 11/30/19 Levothyroxine [Synthroid -] 125 mcg PO DAILY #30 tablet 09/13/19 hydrALAZINE HCL [Apresoline -] 25 mg PO BID #60 tablet 09/13/19 Family Medical History Family History: Unable to Obtain Review of Systems - Review of Systems Constitutional: reports: No Symptoms Eyes: reports: No Symptoms HENT: reports: No Symptoms Cardiovascular: reports: No Symptoms Respiratory: reports: No Symptoms Gastrointestinal: reports: Abdominal Pain. denies: Nausea, Vomiting Musculoskeletal: reports: No Symptoms Integumentary: reports: No Symptoms Neurological: reports: No Symptoms Endocrine: reports: No Symptoms Hematology/Lymphatic: reports: No Symptoms Physical Exam-GI Vital Signs: Vital Signs Temperature 97.4 F L 09/15/19 10:00 Pulse Rate 84 09/15/19 10:00 Respiratory Rate 20 09/15/19 10:00 Blood Pressure 123/74 09/15/19 10:00 O2 Sat by Pulse Oximetry (%) 95 09/15/19 09:00 Constitutional: Yes: Well Nourished, No Distress Eyes: Yes: Conjunctiva Clear Cardiovascular: Yes: Regular Rate and Rhythm Respiratory: Yes: CTA Bilaterally ...Palpate: Yes: Soft, Tenderness (RUQ only no guarding) ...Rectal Exam: Yes: Deferred Edema: No Neurological: Yes: Alert, Oriented Labs: CBC, BMP 09/14/19 07:10 09/14/19 07:10 INR, PTT INR 1.08 (0.83-1.09) 09/08/19 13:33 Imaging - Results Cat Scan: Report Reviewed Ultrasound: Report Reviewed Assessment/Plan Unclear hx, but could be symptomatic cholelithiasis given RUQ and post prandial. Would consult general surgery to evaluate further.
[2019-09-15] MEDS ORDERED: SODIUM CHLORIDE 250 ML IV PRN (18:02)
--- NOTE | 2019-09-15 18:02 | PN ---
Progress Note, Physician History of Present Illness: Pt seen and examined at bedside. He is awake and appears comfortable. - Current Medication List Current Medications: Active Medications Acetaminophen (Tylenol -) 650 mg PO Q6H PRN PRN Reason: FEVER Last Admin: 09/12/19 08:42 Dose: 650 mg Al Hydroxide/Mg Hydroxide (Mylanta Oral Suspension -) 30 ml PO Q6H PRN PRN Reason: DYSPEPSIA Last Admin: 09/10/19 21:25 Dose: 30 ml Carvedilol (Coreg -) 3.125 mg PO BID [facility] Last Admin: 09/15/19 09:51 Dose: 3.125 mg Diphenhydramine HCl (Benadryl -) 25 mg PO HS PRN PRN Reason: INSOMNIA Last Admin: 09/14/19 23:37 Dose: 25 mg Donepezil HCl (Aricept -) 10 mg PO DAILY [facility] Last Admin: 09/15/19 09:51 Dose: 10 mg Heparin Sodium (Porcine) (Heparin -) 5,000 unit SQ BID [facility] Last Admin: 09/15/19 09:52 Dose: 5,000 unit Hydralazine HCl (Apresoline -) 25 mg PO BID [facility] Last Admin: 09/15/19 09:51 Dose: 25 mg Cefazolin Sodium 1 gm/ (Dextrose) 50 mls @ 100 mls/hr IVPB DAILY [facility] Last Admin: 09/15/19 09:51 Dose: 100 mls/hr Insulin Aspart (Novolog Vial Sliding Scale -) 1 vial SQ TIDAC [facility]; Protocol Last Admin: 09/15/19 17:02 Dose: 3 units Insulin Aspart (Novolog Vial Sliding Scale -) 1 vial SQ HS [facility]; Protocol Last Admin: 09/14/19 23:38 Dose: Not Given Insulin Detemir (Levemir Vial) 4 units SQ HS [facility] Last Admin: 09/14/19 23:37 Dose: 4 units Isosorbide Dinitrate (Isordil -) 20 mg PO BIDISORDIL [facility] Last Admin: 09/15/19 17:04 Dose: 20 mg Levothyroxine Sodium (Synthroid -) 125 mcg PO AM [facility] Last Admin: 09/15/19 06:41 Dose: 125 mcg Miscellaneous (Lidoderm Patch Removal) 1 each MC DAILY@2200 [facility] Last Admin: 09/14/19 23:39 Dose: Not Given Pantoprazole Sodium (Protonix -) 40 mg PO DAILY [facility] Last Admin: 09/15/19 09:51 Dose: 40 mg - Objective Vital Signs: Vital Signs Temperature 98.3 F 09/15/19 14:00 Pulse Rate 86 09/15/19 14:00 Respiratory Rate 20 09/15/19 14:00 Blood Pressure 147/89 09/15/19 14:00 O2 Sat by Pulse Oximetry (%) 95 09/15/19 09:00 Constitutional: Yes: Calm Eyes: Yes: Conjunctiva Clear HENT: Yes: Atraumatic Neck: Yes: Supple Cardiovascular: Yes: S1, S2 Respiratory: Yes: CTA Bilaterally Gastrointestinal: Yes: Normal Bowel Sounds, Soft Musculoskeletal: Yes: WNL Edema: Yes Edema: LLE: Trace, RLE: Trace Neurological: Yes: Oriented Labs: CBC, BMP 09/14/19 07:10 09/14/19 07:10 INR, PTT INR 1.08 (0.83-1.09) 09/08/19 13:33 Problem List - Problems (1) Cellulitis of right foot Code(s): L03.115 - CELLULITIS OF RIGHT LOWER LIMB (2) Diabetes Code(s): E11.9 - TYPE 2 DIABETES MELLITUS WITHOUT COMPLICATIONS Qualifiers: Diabetes mellitus type: type 2 Chronic kidney disease stage: on chronic dialysis (3) ESRD (end stage renal disease) Code(s): N18.6 - END STAGE RENAL DISEASE (4) HTN (hypertension) Code(s): I10 - ESSENTIAL (PRIMARY) HYPERTENSION (5) Hypothyroid Code(s): E03.9 - HYPOTHYROIDISM, UNSPECIFIED Qualifiers: Hypothyroidism type: unspecified Qualified Code(s): E03.9 - Hypothyroidism , unspecified Assessment/Plan Current Medications Generic Name Dose Route Start Last Admin Trade Name Freq PRN Reason Stop Dose Admin Acetaminophen 650 mg 09/08/19 19:59 09/12/19 08:42 Tylenol - PO 650 mg Q6H PRN Administration FEVER Al Hydroxide/Mg Hydroxide 30 ml 09/10/19 20:19 09/10/19 21:25 Mylanta Oral Suspension - PO 30 ml Q6H PRN Administration DYSPEPSIA Carvedilol 3.125 mg 09/12/19 14:10 09/15/19 09:51 Coreg - PO 3.125 mg BID [facility] Administration Diphenhydramine HCl 25 mg 09/14/19 23:19 09/14/19 23:37 Benadryl - PO 25 mg HS PRN Administration INSOMNIA Donepezil HCl 10 mg 09/09/19 10:00 09/15/19 09:51 Aricept - PO 10 mg DAILY [facility] Administration Heparin Sodium (Porcine) 5,000 unit 09/08/19 22:00 09/15/19 09:52 Heparin - SQ 5,000 unit BID [facility] Administration Hydralazine HCl 25 mg 09/13/19 15:04 09/15/19 09:51 Apresoline - PO 25 mg BID [facility] Administration Cefazolin Sodium 1 gm/ 50 mls @ 100 mls/hr 09/09/19 14:00 09/15/19 09:51 Dextrose IVPB 100 mls/hr DAILY [facility] Administration Insulin Aspart 1 vial 09/12/19 16:30 09/15/19 17:02 Novolog Vial Sliding Scale - SQ 3 units TIDAC [facility] Administration Protocol Insulin Aspart 1 vial 09/12/19 22:00 09/14/19 23:38 Novolog Vial Sliding Scale - SQ Not Given HS [facility] Protocol Insulin Detemir 4 units 09/12/19 22:00 09/14/19 23:37 Levemir Vial SQ 4 units HS [facility] Administration Isosorbide Dinitrate 20 mg 09/14/19 10:00 09/15/19 17:04 Isordil - PO 20 mg BIDISORDIL [facility] Administration Levothyroxine Sodium 125 mcg 09/09/19 07:00 09/15/19 06:41 Synthroid - PO 125 mcg AM [facility] Administration Miscellaneous 1 each 09/08/19 22:00 09/14/19 23:39 Lidoderm Patch Removal MC Not Given DAILY@2200 [facility] Pantoprazole Sodium 40 mg 09/11/19 10:00 09/15/19 09:51 Protonix - PO 40 mg DAILY [facility] Administration Impression 1. ESRD 2. HTN 3. cellulitis 4. DM 5. hypothyroidism 6. hx of CVA Plan - HD tomorrow, orders written - 3 k bath - renal diet - cont wound care - will need HD placement, send packet to [facility] in [place], discussed with daughter and this unit is closer to her house
--- NOTE | 2019-09-15 18:35 | PN ---
Progress Note, Physician History of Present Illness: c/o belly pain - Current Medication List Current Medications: Active Medications Acetaminophen (Tylenol -) 650 mg PO Q6H PRN PRN Reason: FEVER Last Admin: 09/12/19 08:42 Dose: 650 mg Al Hydroxide/Mg Hydroxide (Mylanta Oral Suspension -) 30 ml PO Q6H PRN PRN Reason: DYSPEPSIA Last Admin: 09/10/19 21:25 Dose: 30 ml Carvedilol (Coreg -) 3.125 mg PO BID [facility] Last Admin: 09/15/19 09:51 Dose: 3.125 mg Diphenhydramine HCl (Benadryl -) 25 mg PO HS PRN PRN Reason: INSOMNIA Last Admin: 09/14/19 23:37 Dose: 25 mg Donepezil HCl (Aricept -) 10 mg PO DAILY [facility] Last Admin: 09/15/19 09:51 Dose: 10 mg Heparin Sodium (Porcine) (Heparin -) 5,000 unit SQ BID [facility] Last Admin: 09/15/19 09:52 Dose: 5,000 unit Hydralazine HCl (Apresoline -) 25 mg PO BID [facility] Last Admin: 09/15/19 09:51 Dose: 25 mg Cefazolin Sodium 1 gm/ (Dextrose) 50 mls @ 100 mls/hr IVPB DAILY [facility] Last Admin: 09/15/19 09:51 Dose: 100 mls/hr Sodium Chloride (Normal Saline -) 250 mls @ 3,000 mls/hr IV PRN PRN PRN Reason: Hypotension during Dialysis Stop: 09/16/19 18:02 Insulin Aspart (Novolog Vial Sliding Scale -) 1 vial SQ TIDAC [facility]; Protocol Last Admin: 09/15/19 17:02 Dose: 3 units Insulin Aspart (Novolog Vial Sliding Scale -) 1 vial SQ HS [facility]; Protocol Last Admin: 09/14/19 23:38 Dose: Not Given Insulin Detemir (Levemir Vial) 4 units SQ HS [facility] Last Admin: 09/14/19 23:37 Dose: 4 units Isosorbide Dinitrate (Isordil -) 20 mg PO BIDISORDIL [facility] Last Admin: 09/15/19 17:04 Dose: 20 mg Levothyroxine Sodium (Synthroid -) 125 mcg PO AM [facility] Last Admin: 09/15/19 06:41 Dose: 125 mcg Miscellaneous (Lidoderm Patch Removal) 1 each MC DAILY@2200 [facility] Last Admin: 09/14/19 23:39 Dose: Not Given Pantoprazole Sodium (Protonix -) 40 mg PO DAILY [facility] Last Admin: 09/15/19 09:51 Dose: 40 mg - Objective Vital Signs: Vital Signs Temperature 98.3 F 09/15/19 14:00 Pulse Rate 86 09/15/19 14:00 Respiratory Rate 20 09/15/19 14:00 Blood Pressure 147/89 09/15/19 14:00 O2 Sat by Pulse Oximetry (%) 95 09/15/19 09:00 Constitutional: Yes: No Distress HENT: Yes: Atraumatic Neck: Yes: Supple Cardiovascular: Yes: Regular Rate and Rhythm Respiratory: Yes: CTA Bilaterally Gastrointestinal: Yes: Normal Bowel Sounds, Tenderness Extremities: Yes: WNL Edema: No Neurological: Yes: Alert, Oriented Labs: CBC, BMP 09/14/19 07:10 09/14/19 07:10 INR, PTT INR 1.08 (0.83-1.09) 09/08/19 13:33 Problem List - Problems (1) Cellulitis of right foot Assessment/Plan: iv abx id on board Code(s): L03.115 - CELLULITIS OF RIGHT LOWER LIMB (2) HTN (hypertension) Assessment/Plan: monitor Code(s): I10 - ESSENTIAL (PRIMARY) HYPERTENSION (3) Diabetes Assessment/Plan: insulin bgms Code(s): E11.9 - TYPE 2 DIABETES MELLITUS WITHOUT COMPLICATIONS Qualifiers: Diabetes mellitus type: type 2 Chronic kidney disease stage: on chronic dialysis (4) ESRD (end stage renal disease) Assessment/Plan: renal consult monitor Code(s): N18.6 - END STAGE RENAL DISEASE (5) Hypothyroid Assessment/Plan: on meds check tsh endo consult Code(s): E03.9 - HYPOTHYROIDISM, UNSPECIFIED Qualifiers: Hypothyroidism type: unspecified Qualified Code(s): E03.9 - Hypothyroidism , unspecified (6) Abdominal pain Assessment/Plan: full liquid diet kub us gb....gall stones gi consult will send cdiff stool surgery consult Code(s): R10.9 - UNSPECIFIED ABDOMINAL PAIN
[2019-09-15] MEDS: diphenhydrAMINE HCL 25 MG CAPSULE (FP) PO PRN (23:22)
[2019-09-15] MEDS: INSULIN (LEVEMIR) 100 UNITS/ML UNITS SQ SCH (23:25)
[2019-09-15] MEDS: LIDOCAINE PATCH REMOVAL MC SCH (23:29)
[2019-09-16] MEDS: LEVOTHYROXINE NA 125 MCG TABLET (FP) PO SCH (06:49)
[2019-09-16] MEDS: INSULIN SLIDING SCALE (NOVOLOG) 1 VIAL SQ SCH ×4 (06:51→22:22)
[2019-09-16 08:59] LABS: BASO % 0.8 % (0-2.0); EOS % 0.6 % (0-4.5); HEMATOCRIT 38.3 % (35.4-49); HEMOGLOBIN 12.5 GM/dL (11.7-16.9); LYMPH % 18.5 % (8-40); MCH 30.6 pg (25.7-33.7); MCHC 32.6 g/dl (32.0-35.9); MEAN CELL VOLUME 93.8 fl (80-96); MEAN PLT VOLUME 8.1 fl (7.5-11.1); MONO % 5.8 % (3.8-10.2); NEUT % 74.3 % (42.8-82.8); PLATELET COUNT 284 K/MM3 (134-434); RBC 4.08 M/mm3 (4.00-5.60); RDW 15.3 % (11.9-15.9); WHITE BLOOD COUNT 8.2 K/mm3 (4.0-10.0)
--- NOTE | 2019-09-16 09:12 | CONSULT ---
- Consultation REQUESTING PROVIDER: Kirsten MONTANO CONSULT REQUEST: We have been asked to surgically evaluate this patient for ( specify). 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 wound after arrival from [place] last week; his daughter states she has not seen in him in years and is getting copies of his MR; he had a mechanical fall w/injury to his right foot; he was in a NH in [place]; he has had epigastric ? RUQ abdominal pain ?; ? post prandial in nature; he cannot provide any other hx.; he is tolerating a diet. PMHx: HTN/DM/cardiomyopathy/CHF PSHx: none e/f implanted defibrillator Home Medications Medication Instructions Recorded Furosemide [Lasix -] 20 mg PO DAILY 09/08/19 Insulin NPH Hum/Reg Insulin Hm 10 unit SQ BID 09/08/19 [Humulin 70-30 Vial] Irbesartan/Hydrochlorothiazide 1 each PO DAILY 09/08/19 [Irbesartan-Hctz 150-12.5 mg Tb] Omeprazole 20 mg PO DAILY 09/08/19 Carvedilol [Coreg -] 3.125 mg PO BID #60 tablet 09/13/19 Cephalexin [Keflex] 500 mg PO DAILY #5 capsule 09/13/19 Donepezil HCl 10 mg PO DAILY #30 tablet 09/13/19 Furosemide [Lasix -] 20 mg PO DAILY #30 tablet 09/13/19 Isosorbide Dinitrate [Isordil] 20 mg PO DAILY #30 tablet 09/13/19 Levothyroxine [Synthroid -] 125 mcg PO DAILY #30 tablet 09/13/19 hydrALAZINE HCL [Apresoline -] 25 mg PO BID #60 tablet 09/13/19 Allergies Allergy/AdvReac Type Severity Reaction Status Date / Time No Known Allergies Allergy Verified 09/08/19 12:11 REVIEW OF SYSTEMS:unable to answer PHYSICAL EXAM: GENERAL: Awake, alert, and fully oriented, in no acute distress. HEAD: Normal with no signs of trauma. EYES:anicteric, conjunctiva clear. NECK: Normal ROM, supple without lymphadenopathy, JVD, or masses. ABDOMEN: Soft, nontender, not distended, normoactive bowel sounds, no guarding, no rebound, no masses. No organomegaly. No hernias MUSCULOSKELETAL: Normal ROM at all joints. No bony deformities or tenderness. No CVA tenderness. UPPER EXTREMITIES: 2+ pulses, warm, well-perfused. No cyanosis. Cap refill <2 seconds. No peripheral edema. LOWER EXTREMITIES: 2+ pulses, warm, well-perfused. No calf tenderness. No peripheral edema. STS right foot NEUROLOGICAL: Normal speech, gait not observed. PSYCH: Cooperative. Good eye contact. Appropriate mood and affect. SKIN: Warm, dry, normal turgor, no rashes or lesions noted. Vital Signs Temperature 97.3 F L 09/16/19 06:55 Pulse Rate 83 09/16/19 06:55 Respiratory Rate 20 09/16/19 06:55 Blood Pressure 117/75 09/16/19 06:55 O2 Sat by Pulse Oximetry (%) 95 09/15/19 21:00 Lab Results WBC 8.2 K/mm3 (4.0-10.0) 09/16/19 08:20 RBC 4.08 M/mm3 (4.00-5.60) 09/16/19 08:20 Hgb 12.5 GM/dL (11.7-16.9) 09/16/19 08:20 Hct 38.3 % (35.4-49) 09/16/19 08:20 MCV 93.8 fl (80-96) 09/16/19 08:20 MCHC 32.6 g/dl (32.0-35.9) 09/16/19 08:20 RDW 15.3 % (11.9-15.9) 09/16/19 08:20 Plt Count 284 K/MM3 (134-434) D 09/16/19 08:20 Sodium 142 mmol/L (136-145) 09/14/19 07:10 Potassium 3.8 mmol/L (3.5-5.1) 09/14/19 07:10 Chloride 106 mmol/L (98-107) 09/14/19 07:10 Carbon Dioxide 28 mmol/L (21-32) 09/14/19 07:10 Anion Gap 8 MMOL/L (8-16) 09/14/19 07:10 BUN 30.8 mg/dL (7-18) H 09/14/19 07:10 Creatinine 3.2 mg/dL (0.55-1.3) H 09/14/19 07:10 Random Glucose 101 mg/dL (74-106) 09/14/19 07:10 Calcium 8.3 mg/dL (8.5-10.1) L 09/14/19 07:10 INR 1.08 (0.83-1.09) 09/08/19 13:33 Imaging w/u reviewed Cardiology IMP: biliary colic/cholelithiasis PLAN: Advise lap jody possible open; d/w the patient in Greek and his daughter who helped clarify his complaints; he will need a pre-op medical/ Cardiology evaluation given his hx; anticipate surgery 09/17/19; case d/w Dr. Pina of Cardiology. Edgar Avila MD FACS
[2019-09-16 09:28] LABS: ALBUMIN 2.5 g/dl (3.4-5.0); BILIRUBIN,TOTAL 0.5 mg/dL (0.2-1); CALCIUM 8.5 mg/dL (8.5-10.1); CREATININE 4.2 mg/dL (0.55-1.3); POTASSIUM 4.4 mmol/L (3.5-5.1); TOT PROT 6.7 g/dl (6.4-8.2)
[2019-09-16] MEDS ORDERED: PT OWN MED DRAWER 7, Y5N ONE (12:07)
[2019-09-16] MEDS ORDERED: ceFAZolin SODIUM 1 GM VIAL ONE (12:08)
[2019-09-16] MEDS ORDERED: DEXTROSE 5%-WATER - 50 ML IVPB ONE (12:08)
[2019-09-16] MEDS: DONEPEZIL HCL 10 MG TABLET (FP) PO SCH (12:15)
[2019-09-16] MEDS: CEFAZOLIN 1 GM in DEXTROSE 5%-WATER - 50 ML IVPB SCH (12:15)
[2019-09-16] MEDS: ISOSORBIDE DINITRATE 20 MG TABLET (FP) PO SCH ×2 (12:16→17:38)
[2019-09-16] MEDS: CARVEDILOL 3.125 MG TABLET (FP) PO SCH ×2 (12:16→22:20)
[2019-09-16] MEDS: PANTOPRAZOLE 40 MG TABLET (FP) PO SCH (12:16)
[2019-09-16] MEDS: hydrALAZINE HCL 25 MG TABLET (FP) PO SCH ×2 (12:17→22:20)
--- NOTE | 2019-09-16 12:27 | PN ---
Progress Note, Physician History of Present Illness: c/o belly pain - Current Medication List Current Medications: Active Medications Acetaminophen (Tylenol -) 650 mg PO Q6H PRN PRN Reason: FEVER Last Admin: 09/12/19 08:42 Dose: 650 mg Al Hydroxide/Mg Hydroxide (Mylanta Oral Suspension -) 30 ml PO Q6H PRN PRN Reason: DYSPEPSIA Last Admin: 09/10/19 21:25 Dose: 30 ml Carvedilol (Coreg -) 3.125 mg PO BID [facility] Last Admin: 09/16/19 12:16 Dose: 3.125 mg Diphenhydramine HCl (Benadryl -) 25 mg PO HS PRN PRN Reason: INSOMNIA Last Admin: 09/15/19 23:22 Dose: 25 mg Donepezil HCl (Aricept -) 10 mg PO DAILY [facility] Last Admin: 09/16/19 12:15 Dose: 10 mg Hydralazine HCl (Apresoline -) 25 mg PO BID [facility] Last Admin: 09/16/19 12:17 Dose: 25 mg Cefazolin Sodium 1 gm/ (Dextrose) 50 mls @ 100 mls/hr IVPB DAILY [facility] Last Admin: 09/16/19 12:15 Dose: 100 mls/hr Sodium Chloride (Normal Saline -) 250 mls @ 3,000 mls/hr IV PRN PRN PRN Reason: Hypotension during Dialysis Stop: 09/16/19 18:02 Insulin Aspart (Novolog Vial Sliding Scale -) 1 vial SQ TIDAC [facility]; Protocol Last Admin: 09/16/19 12:16 Dose: 2 units Insulin Aspart (Novolog Vial Sliding Scale -) 1 vial SQ HS [facility]; Protocol Last Admin: 09/15/19 23:29 Dose: Not Given Insulin Detemir (Levemir Vial) 4 units SQ HS [facility] Last Admin: 09/15/19 23:25 Dose: 4 units Isosorbide Dinitrate (Isordil -) 20 mg PO BIDISORDIL [facility] Last Admin: 09/16/19 12:16 Dose: 20 mg Levothyroxine Sodium (Synthroid -) 125 mcg PO AM [facility] Last Admin: 09/16/19 06:49 Dose: 125 mcg Miscellaneous (Lidoderm Patch Removal) 1 each MC DAILY@2200 [facility] Last Admin: 09/15/19 23:29 Dose: Not Given Pantoprazole Sodium (Protonix -) 40 mg PO DAILY [facility] Last Admin: 09/16/19 12:16 Dose: 40 mg - Objective Vital Signs: Vital Signs Temperature 97.4 F L 09/16/19 12:14 Pulse Rate 78 09/16/19 12:14 Respiratory Rate 20 09/16/19 12:14 Blood Pressure 139/74 09/16/19 12:14 O2 Sat by Pulse Oximetry (%) 95 09/15/19 21:00 Constitutional: Yes: No Distress HENT: Yes: Atraumatic Neck: Yes: Supple Cardiovascular: Yes: Regular Rate and Rhythm Respiratory: Yes: CTA Bilaterally Gastrointestinal: Yes: Normal Bowel Sounds, Tenderness (ruq) Extremities: Yes: WNL Edema: No Peripheral Pulses WNL: Yes Neurological: Yes: Alert, Oriented Labs: CBC, BMP 09/16/19 08:20 09/16/19 08:20 INR, PTT INR 1.08 (0.83-1.09) 09/08/19 13:33 Problem List - Problems (1) Cellulitis of right foot Assessment/Plan: po keflex id on board Code(s): L03.115 - CELLULITIS OF RIGHT LOWER LIMB (2) HTN (hypertension) Assessment/Plan: monitor Code(s): I10 - ESSENTIAL (PRIMARY) HYPERTENSION (3) Diabetes Assessment/Plan: insulin bgms Code(s): E11.9 - TYPE 2 DIABETES MELLITUS WITHOUT COMPLICATIONS Qualifiers: Diabetes mellitus type: type 2 Chronic kidney disease stage: on chronic dialysis (4) ESRD (end stage renal disease) Assessment/Plan: renal consult monitor Code(s): N18.6 - END STAGE RENAL DISEASE (5) Hypothyroid Assessment/Plan: on meds check tsh endo consult Code(s): E03.9 - HYPOTHYROIDISM, UNSPECIFIED Qualifiers: Hypothyroidism type: unspecified Qualified Code(s): E03.9 - Hypothyroidism , unspecified (6) Abdominal pain Assessment/Plan: full liquid diet kub us gb....gall stones gi consult will send cdiff stool surgery consult Code(s): R10.9 - UNSPECIFIED ABDOMINAL PAIN
--- NOTE | 2019-09-16 15:52 | PN ---
Progress Note, Physician History of Present Illness: Pt seen and examined at bedside. He is awake and alert. - Current Medication List Current Medications: Active Medications Acetaminophen (Tylenol -) 650 mg PO Q6H PRN PRN Reason: FEVER Last Admin: 09/12/19 08:42 Dose: 650 mg Al Hydroxide/Mg Hydroxide (Mylanta Oral Suspension -) 30 ml PO Q6H PRN PRN Reason: DYSPEPSIA Last Admin: 09/10/19 21:25 Dose: 30 ml Carvedilol (Coreg -) 3.125 mg PO BID [facility] Last Admin: 09/16/19 12:16 Dose: 3.125 mg Diphenhydramine HCl (Benadryl -) 25 mg PO HS PRN PRN Reason: INSOMNIA Last Admin: 09/15/19 23:22 Dose: 25 mg Donepezil HCl (Aricept -) 10 mg PO DAILY [facility] Last Admin: 09/16/19 12:15 Dose: 10 mg Hydralazine HCl (Apresoline -) 25 mg PO BID [facility] Last Admin: 09/16/19 12:17 Dose: 25 mg Insulin Aspart (Novolog Vial Sliding Scale -) 1 vial SQ TIDAC [facility]; Protocol Last Admin: 09/16/19 12:16 Dose: 2 units Insulin Aspart (Novolog Vial Sliding Scale -) 1 vial SQ HS [facility]; Protocol Last Admin: 09/15/19 23:29 Dose: Not Given Insulin Detemir (Levemir Vial) 4 units SQ HS [facility] Last Admin: 09/15/19 23:25 Dose: 4 units Isosorbide Dinitrate (Isordil -) 20 mg PO BIDISORDIL [facility] Last Admin: 09/16/19 12:16 Dose: 20 mg Levothyroxine Sodium (Synthroid -) 125 mcg PO AM [facility] Last Admin: 09/16/19 06:49 Dose: 125 mcg Miscellaneous (Lidoderm Patch Removal) 1 each MC DAILY@2200 [facility] Last Admin: 09/15/19 23:29 Dose: Not Given Pantoprazole Sodium (Protonix -) 40 mg PO DAILY [facility] Last Admin: 09/16/19 12:16 Dose: 40 mg - Objective Vital Signs: Vital Signs Temperature 97.4 F L 09/16/19 12:14 Pulse Rate 78 09/16/19 12:14 Respiratory Rate 20 09/16/19 12:14 Blood Pressure 139/74 09/16/19 12:14 O2 Sat by Pulse Oximetry (%) 95 09/15/19 21:00 Constitutional: Yes: Calm Eyes: Yes: Conjunctiva Clear HENT: Yes: Atraumatic Cardiovascular: Yes: S1, S2 Respiratory: Yes: CTA Bilaterally Gastrointestinal: Yes: Soft Genitourinary: Yes: WNL Musculoskeletal: Yes: WNL Edema: No Neurological: Yes: Oriented Psychiatric: Yes: Oriented Labs: CBC, BMP 09/16/19 08:20 09/16/19 08:20 INR, PTT INR 1.08 (0.83-1.09) 09/08/19 13:33 Problem List - Problems (1) Cellulitis of right foot Code(s): L03.115 - CELLULITIS OF RIGHT LOWER LIMB (2) Diabetes Code(s): E11.9 - TYPE 2 DIABETES MELLITUS WITHOUT COMPLICATIONS Qualifiers: Diabetes mellitus type: type 2 Chronic kidney disease stage: on chronic dialysis (3) ESRD (end stage renal disease) Code(s): N18.6 - END STAGE RENAL DISEASE (4) HTN (hypertension) Code(s): I10 - ESSENTIAL (PRIMARY) HYPERTENSION (5) Hypothyroid Code(s): E03.9 - HYPOTHYROIDISM, UNSPECIFIED Qualifiers: Hypothyroidism type: unspecified Qualified Code(s): E03.9 - Hypothyroidism , unspecified Assessment/Plan Current Medications Generic Name Dose Route Start Last Admin Trade Name Freq PRN Reason Stop Dose Admin Acetaminophen 650 mg 09/08/19 19:59 09/12/19 08:42 Tylenol - PO 650 mg Q6H PRN Administration FEVER Al Hydroxide/Mg Hydroxide 30 ml 09/10/19 20:19 09/10/19 21:25 Mylanta Oral Suspension - PO 30 ml Q6H PRN Administration DYSPEPSIA Carvedilol 3.125 mg 09/12/19 14:10 09/16/19 12:16 Coreg - PO 3.125 mg BID [facility] Administration Diphenhydramine HCl 25 mg 09/14/19 23:19 09/15/19 23:22 Benadryl - PO 25 mg HS PRN Administration INSOMNIA Donepezil HCl 10 mg 09/09/19 10:00 09/16/19 12:15 Aricept - PO 10 mg DAILY [facility] Administration Hydralazine HCl 25 mg 09/13/19 15:04 09/16/19 12:17 Apresoline - PO 25 mg BID [facility] Administration Insulin Aspart 1 vial 09/12/19 16:30 09/16/19 12:16 Novolog Vial Sliding Scale - SQ 2 units TIDAC [facility] Administration Protocol Insulin Aspart 1 vial 09/12/19 22:00 09/15/19 23:29 Novolog Vial Sliding Scale - SQ Not Given HS [facility] Protocol Insulin Detemir 4 units 09/12/19 22:00 09/15/19 23:25 Levemir Vial SQ 4 units HS [facility] Administration Isosorbide Dinitrate 20 mg 09/14/19 10:00 09/16/19 12:16 Isordil - PO 20 mg BIDISORDIL [facility] Administration Levothyroxine Sodium 125 mcg 09/09/19 07:00 09/16/19 06:49 Synthroid - PO 125 mcg AM [facility] Administration Miscellaneous 1 each 09/08/19 22:00 09/15/19 23:29 Lidoderm Patch Removal MC Not Given DAILY@2200 [facility] Pantoprazole Sodium 40 mg 09/11/19 10:00 09/16/19 12:16 Protonix - PO 40 mg DAILY [facility] Administration Impression 1. ESRD 2. HTN 3. cellulitis 4. DM 5. hypothyroidism 6. hx of CVA Plan - HD today - pt still does not have HD set up as outpt - renal diet - cont wound care - discussed with daughter
[2019-09-16] MEDS ORDERED: CEPHALEXIN MONOHYDRATE 500 MG CAPSULE (UD) PO ONE (16:54)
--- NOTE | 2019-09-16 17:39 | PN.GI ---
GI Progress Note Subjective: No acute events Tolerating liquids No abdominal pain today Daughter present at bedside - Objective Vital Signs: Vital Signs Temperature 97.4 F L 09/16/19 14:00 Pulse Rate 81 09/16/19 14:00 Respiratory Rate 20 09/16/19 14:00 Blood Pressure 114/53 L 09/16/19 14:00 O2 Sat by Pulse Oximetry (%) 96 09/16/19 12:00 Constitutional: Calm Eyes: No: Sclera Icterus ...Auscultate: Yes: Normoactive Bowel Sounds ...Palpate: Yes: Soft, Tenderness (Question of minimal TTP RUQ) ...Percussion: No: Tympanitic Edema: Yes Edema: LLE: Trace, RLE: Trace Neurological: Yes: Alert Labs: CBC, BMP 09/16/19 08:20 09/16/19 08:20 INR, PTT INR 1.08 (0.83-1.09) 09/08/19 13:33 Hepatic Panel Total Bilirubin 0.5 mg/dL (0.2-1) 09/16/19 08:20 AST 42 U/L (15-37) H 09/16/19 08:20 ALT 11 U/L (13-61) L 09/16/19 08:20 Alkaline Phosphatase 195 U/L (45-117) H 09/16/19 08:20 Albumin 2.5 g/dl (3.4-5.0) L 09/16/19 08:20 Problem List - Problems (1) Abdominal pain Assessment/Plan: No current abdominal pain. Mr. Chau evaluated by Dr. Avila of surgery. For Lap Brittany once medically optimized Monitor LFTs Code(s): R10.9 - UNSPECIFIED ABDOMINAL PAIN
[2019-09-16] MEDS: diphenhydrAMINE HCL 25 MG CAPSULE (FP) PO PRN (22:20)
[2019-09-16] MEDS: LIDOCAINE PATCH REMOVAL MC SCH (22:21)
[2019-09-16] MEDS: INSULIN (LEVEMIR) 100 UNITS/ML UNITS SQ SCH (22:21)
[2019-09-17] MEDS: INSULIN SLIDING SCALE (NOVOLOG) 1 VIAL SQ SCH ×3 (06:16→22:53)
[2019-09-17] MEDS: LEVOTHYROXINE NA 125 MCG TABLET (FP) PO SCH (06:16)
--- NOTE | 2019-09-17 09:21 | PN ---
Progress Note, Physician Chief Complaint: Events noted Not in distress Abdominal discomfort History of Present Illness: Patient was seen and examined. Awake and alert. Chart was reviewed Denies chest pain, SOB or palpitations - Current Medication List Current Medications: Active Medications Acetaminophen (Tylenol -) 650 mg PO Q6H PRN PRN Reason: FEVER Last Admin: 09/12/19 08:42 Dose: 650 mg Al Hydroxide/Mg Hydroxide (Mylanta Oral Suspension -) 30 ml PO Q6H PRN PRN Reason: DYSPEPSIA Last Admin: 09/10/19 21:25 Dose: 30 ml Carvedilol (Coreg -) 3.[address] [facility] Last Admin: 09/16/19 22:20 Dose: 3.125 mg Diphenhydramine HCl (Benadryl -) 25 mg PO HS PRN PRN Reason: INSOMNIA Last Admin: 09/16/19 22:20 Dose: 25 mg Donepezil HCl (Aricept -) [address] [facility] Last Admin: 09/16/19 12:15 Dose: 10 mg Hydralazine HCl (Apresoline -) [address] [facility] Last Admin: 09/16/19 22:20 Dose: 25 mg Cefazolin Sodium 1 gm/ (Dextrose) 50 mls @ 100 mls/hr IVPB DAILY [facility] Insulin Aspart (Novolog Vial Sliding Scale -) [address] [facility]; Protocol Last Admin: 09/17/19 06:16 Dose: Not Given Insulin Aspart (Novolog Vial Sliding Scale -) [address] [facility]; Protocol Last Admin: 09/16/19 22:22 Dose: Not Given Insulin Detemir (Levemir Vial) [address] [facility] Last Admin: 09/16/19 22:21 Dose: Not Given Isosorbide Dinitrate (Isordil -) [address] [facility] Last Admin: 09/16/19 17:38 Dose: 20 mg Levothyroxine Sodium (Synthroid -) [address] [facility] Last Admin: 09/17/19 06:16 Dose: Not Given Miscellaneous (Lidoderm Patch Removal) 1 each MC DAILY@2200 [facility] Last Admin: 09/16/19 22:21 Dose: Not Given Pantoprazole Sodium (Protonix -) [address] [facility] Last Admin: 09/16/19 12:16 Dose: 40 mg - Objective Vital Signs: Vital Signs Temperature 98.1 F 09/17/19 06:30 Pulse Rate 09/17/19 06:30 Respiratory Rate 20 09/17/19 06:30 Blood Pressure 137/56 L 09/17/19 06:30 O2 Sat by Pulse Oximetry (%) 98 09/16/19 21:00 Eyes: Yes: PERRL HENT: Yes: Atraumatic Neck: Yes: Supple Cardiovascular: Yes: Regular Rate and Rhythm, S1, S2 Respiratory: Yes: CTA Bilaterally Gastrointestinal: Yes: Normal Bowel Sounds, Soft Edema: No Additional Findings/Remarks: - Review of Systems Constitutional: denies: Chills, Fever Cardiovascular: denies Palpitations, Shortness of Breath. denies: Chest Pain Respiratory: denies SOB. denies: Cough, Hemoptysis, PND, Snoring, SOB on Exertion, Wheezing Gastrointestinal: reports: Abdominal Pain, denies: Bloating, Diarrhea, Nausea, Vomiting. denies: Constipation, Melena, Rectal Bleeding Genitourinary: denies: Discharge, Hematuria Neurological: denies: Dizziness, Headache, Seizure, Syncope Labs: CBC, BMP 09/16/19 08:20 09/16/19 08:20 Problem List - Problems (1) Biventricular ICD (implantable cardioverter-defibrillator) in place Code(s): Z95.810 - PRESENCE OF AUTOMATIC (IMPLANTABLE) CARDIAC DEFIBRILLATOR (2) Cardiomyopathy Code(s): I42.9 - CARDIOMYOPATHY, UNSPECIFIED Qualifiers: Cardiomyopathy type: unspecified Qualified Code(s): I42.9 - Cardiomyopathy , unspecified (3) Cellulitis of right foot Code(s): L03.115 - CELLULITIS OF RIGHT LOWER LIMB (4) Diabetes Code(s): E11.9 - TYPE 2 DIABETES MELLITUS WITHOUT COMPLICATIONS Qualifiers: Diabetes mellitus type: type 2 Chronic kidney disease stage: on chronic dialysis (5) ESRD (end stage renal disease) Code(s): N18.6 - END STAGE RENAL DISEASE (6) HTN (hypertension) Code(s): I10 - ESSENTIAL (PRIMARY) HYPERTENSION (7) Hypothyroid Code(s): E03.9 - HYPOTHYROIDISM, UNSPECIFIED Qualifiers: Hypothyroidism type: unspecified Qualified Code(s): E03.9 - Hypothyroidism , unspecified (8) Right foot pain Code(s): M79.671 - PAIN IN RIGHT FOOT (9) Cholelithiasis Code(s): K80.20 - CALCULUS OF GALLBLADDER W/O CHOLECYSTITIS W/O OBSTRUCTION Assessment/Plan 1. ESRD on HD 2. Cardiomyopathy s/p [employer] 3. HTN 4. Right Foot cellulitis 5. T2DM 6. Hypothyroidism 7. Dementia 8. Cholelithiasis and perihepatic free fluid 9. Demand ischemia PLAN: 1. HD per renal 2. Continue wound care and empiric antibiotic coverage 3. Will interrogate [employer]INE[employer] with [email or web address], but in the mean time can place magnet when he has surgery. This is to deactivate the device. When magnet is taken off, it will resume its programmed function. 4. Continue Carvedilol, Hydralazine and Isosorbide as tolerated 5. Echocardiography was reviewed 6. There is no absolute contraindication for surgery in view of absence of ischemic symptoms, decompensated congestive heart failure or malignant arrhythmia. Post operative cardiac enzyme and ECG recommended. Olman Pina MD
[2019-09-17] MEDS ORDERED: PT OWN MED DRAWER 7, Y5N ONE (09:22)
[2019-09-17] MEDS ORDERED: ceFAZolin SODIUM 1 GM VIAL ONE ×2 (09:22→13:48)
[2019-09-17] MEDS ORDERED: DEXTROSE 5%-WATER - 50 ML IVPB ONE (09:23)
[2019-09-17] MEDS: CARVEDILOL 3.125 MG TABLET (FP) PO SCH ×2 (09:31→22:45)
[2019-09-17] MEDS: ISOSORBIDE DINITRATE 20 MG TABLET (FP) PO SCH ×2 (09:31→22:44)
[2019-09-17] MEDS: hydrALAZINE HCL 25 MG TABLET (FP) PO SCH ×2 (09:32→22:44)
[2019-09-17] MEDS: DONEPEZIL HCL 10 MG TABLET (FP) PO SCH (09:32)
[2019-09-17] MEDS: PANTOPRAZOLE 40 MG TABLET (FP) PO SCH (09:32)
--- NOTE | 2019-09-17 09:41 | PN ---
Progress Note (short form) - Note Progress Note: C/o upper abd pain going for cholecystectomy Vital Signs Period Temp Pulse Resp BP Sys/Palacios Pulse Ox Last 24 Hr 97.4 F-98.3 F 1-86 18-20 114-152/53-102 96-98 PE AOx3 Neck: Supple, No JVD Lungs: CTA CVS: s1S2 Abd: mild upper abd tenderness Ext: Rt left erythema improved Neuro: No focal deficit Current Medications Generic Name Dose Route Start Last Admin Trade Name Freq PRN Reason Stop Dose Admin Acetaminophen 650 mg 09/08/19 19:59 09/12/19 08:42 Tylenol - PO 650 mg Q6H PRN Administration FEVER Al Hydroxide/Mg Hydroxide 30 ml 09/10/19 20:19 09/10/19 21:25 Mylanta Oral Suspension - PO 30 ml Q6H PRN Administration DYSPEPSIA Carvedilol 3.125 mg 09/12/19 14:10 09/17/19 09:31 Coreg - PO 3.125 mg BID [facility] Administration Diphenhydramine HCl 25 mg 09/14/19 23:19 09/16/19 22:20 Benadryl - PO 25 mg HS PRN Administration INSOMNIA Donepezil HCl 10 mg 09/09/19 10:00 09/17/19 09:32 Aricept - PO Not Given DAILY [facility] Hydralazine HCl 25 mg 09/13/19 15:04 09/17/19 09:32 Apresoline - PO 25 mg BID [facility] Administration Cefazolin Sodium 1 gm/ 50 mls @ 100 mls/hr 09/17/19 10:00 09/17/19 09:31 Dextrose IVPB 100 mls/hr DAILY [facility] Administration Insulin Aspart 1 vial 09/12/19 16:30 09/17/19 06:16 Novolog Vial Sliding Scale - SQ Not Given TIDAC [facility] Protocol Insulin Aspart 1 vial 09/12/19 22:00 09/16/19 22:22 Novolog Vial Sliding Scale - SQ Not Given HS [facility] Protocol Insulin Detemir 4 units 09/12/19 22:00 09/16/19 22:21 Levemir Vial SQ Not Given HS [facility] Isosorbide Dinitrate 20 mg 09/14/19 10:00 09/17/19 09:31 Isordil - PO 20 mg BIDISORDIL [facility] Administration Levothyroxine Sodium 125 mcg 09/09/19 07:00 09/17/19 06:16 Synthroid - PO Not Given AM [facility] Miscellaneous 1 each 09/08/19 22:00 09/16/19 22:21 Lidoderm Patch Removal MC Not Given DAILY@2200 [facility] Pantoprazole Sodium 40 mg 09/11/19 10:00 09/17/19 09:32 Protonix - PO Not Given DAILY [facility] Current Medications Generic Name Dose Route Start Last Admin Trade Name Freq PRN Reason Stop Dose Admin Acetaminophen 650 mg 09/08/19 19:59 09/12/19 08:42 Tylenol - PO 650 mg Q6H PRN Administration FEVER Al Hydroxide/Mg Hydroxide 30 ml 09/10/19 20:19 09/10/19 21:25 Mylanta Oral Suspension - PO 30 ml Q6H PRN Administration DYSPEPSIA Carvedilol 3.125 mg 09/12/19 14:10 09/17/19 09:31 Coreg - PO 3.125 mg BID [facility] Administration Diphenhydramine HCl 25 mg 09/14/19 23:19 09/16/19 22:20 Benadryl - PO 25 mg HS PRN Administration INSOMNIA Donepezil HCl 10 mg 09/09/19 10:00 09/17/19 09:32 Aricept - PO Not Given DAILY [facility] Hydralazine HCl 25 mg 09/13/19 15:04 09/17/19 09:32 Apresoline - PO 25 mg BID [facility] Administration Cefazolin Sodium 1 gm/ 50 mls @ 100 mls/hr 09/17/19 10:00 09/17/19 09:31 Dextrose IVPB 100 mls/hr DAILY [facility] Administration Insulin Aspart 1 vial 09/12/19 16:30 09/17/19 06:16 Novolog Vial Sliding Scale - SQ Not Given TIDAC [facility] Protocol Insulin Aspart 1 vial 09/12/19 22:00 09/16/19 22:22 Novolog Vial Sliding Scale - SQ Not Given HS [facility] Protocol Insulin Detemir 4 units 09/12/19 22:00 09/16/19 22:21 Levemir Vial SQ Not Given HS [facility] Isosorbide Dinitrate 20 mg 09/14/19 10:00 09/17/19 09:31 Isordil - PO 20 mg BIDISORDIL [facility] Administration Levothyroxine Sodium 125 mcg 09/09/19 07:00 09/17/19 06:16 Synthroid - PO Not Given AM [facility] Miscellaneous 1 each 09/08/19 22:00 09/16/19 22:21 Lidoderm Patch Removal MC Not Given DAILY@2200 [facility] Pantoprazole Sodium 40 mg 09/11/19 10:00 09/17/19 09:32 Protonix - PO Not Given DAILY [facility] AP: Cholecystitis Rt Foot cellulitis T2DM Hypothyroidism ESRD Off Glimepiride b/o increase risk of hypoglycemia with long acting Sulfonylurea in pt on HD. BGM Q ACHS. To give 100 KCal snack when FS <100 or D50 if FS <60 Levemir 4 units daily at HS. To hold Levemir dose whenever pt doesn't eat dinner and or when FS at HS is <150. Novolog SS coverage premeals and HS Abx as per ID Will f/u
[2019-09-17] MEDS ORDERED: CEFAZOLIN 1 GM in DEXTROSE 5%-WATER - 50 ML IVPB SCH (10:00)
[2019-09-17] MEDS ORDERED: SODIUM CHLORIDE 250 ML IV PRN ×2 (12:27→16:52)
--- NOTE | 2019-09-17 12:27 | PN ---
Progress Note, Physician History of Present Illness: Pt seen and examined at bedside. He is awake and alert. - Current Medication List Current Medications: Active Medications Acetaminophen (Tylenol -) 650 mg PO Q6H PRN PRN Reason: FEVER Last Admin: 09/12/19 08:42 Dose: 650 mg Al Hydroxide/Mg Hydroxide (Mylanta Oral Suspension -) 30 ml PO Q6H PRN PRN Reason: DYSPEPSIA Last Admin: 09/10/19 21:25 Dose: 30 ml Carvedilol (Coreg -) 3.125 mg PO BID [facility] Last Admin: 09/17/19 09:31 Dose: 3.125 mg Diphenhydramine HCl (Benadryl -) 25 mg PO HS PRN PRN Reason: INSOMNIA Last Admin: 09/16/19 22:20 Dose: 25 mg Donepezil HCl (Aricept -) 10 mg PO DAILY [facility] Last Admin: 09/17/19 09:32 Dose: Not Given Hydralazine HCl (Apresoline -) 25 mg PO BID [facility] Last Admin: 09/17/19 09:32 Dose: 25 mg Cefazolin Sodium 1 gm/ (Dextrose) 50 mls @ 100 mls/hr IVPB DAILY [facility] Last Admin: 09/17/19 09:31 Dose: 100 mls/hr Insulin Aspart (Novolog Vial Sliding Scale -) 1 vial SQ TIDAC [facility]; Protocol Last Admin: 09/17/19 06:16 Dose: Not Given Insulin Aspart (Novolog Vial Sliding Scale -) 1 vial SQ HS [facility]; Protocol Last Admin: 09/16/19 22:22 Dose: Not Given Insulin Detemir (Levemir Vial) 4 units SQ HS [facility] Last Admin: 09/16/19 22:21 Dose: Not Given Isosorbide Dinitrate (Isordil -) 20 mg PO BIDISORDIL [facility] Last Admin: 09/17/19 09:31 Dose: 20 mg Levothyroxine Sodium (Synthroid -) 125 mcg PO AM [facility] Last Admin: 09/17/19 06:16 Dose: Not Given Miscellaneous (Lidoderm Patch Removal) 1 each MC DAILY@2200 [facility] Last Admin: 09/16/19 22:21 Dose: Not Given Pantoprazole Sodium (Protonix -) 40 mg PO DAILY [facility] Last Admin: 09/17/19 09:32 Dose: Not Given - Objective Vital Signs: Vital Signs Temperature 98.2 F 09/17/19 09:25 Pulse Rate 80 09/17/19 09:25 Respiratory Rate 18 09/17/19 09:25 Blood Pressure 138/67 09/17/19 09:25 O2 Sat by Pulse Oximetry (%) 98 09/16/19 21:00 Constitutional: Yes: Calm Eyes: Yes: Conjunctiva Clear HENT: Yes: Atraumatic Neck: Yes: Supple Cardiovascular: Yes: S1, S2 Respiratory: Yes: CTA Bilaterally Gastrointestinal: Yes: Soft Genitourinary: Yes: WNL Musculoskeletal: Yes: WNL Edema: No Neurological: Yes: Oriented Psychiatric: Yes: Oriented Labs: CBC, BMP 09/16/19 08:20 09/16/19 08:20 INR, PTT INR 1.08 (0.83-1.09) 09/08/19 13:33 Problem List - Problems (1) Cellulitis of right foot Code(s): L03.115 - CELLULITIS OF RIGHT LOWER LIMB (2) Diabetes Code(s): E11.9 - TYPE 2 DIABETES MELLITUS WITHOUT COMPLICATIONS Qualifiers: Diabetes mellitus type: type 2 Chronic kidney disease stage: on chronic dialysis (3) ESRD (end stage renal disease) Code(s): N18.6 - END STAGE RENAL DISEASE (4) HTN (hypertension) Code(s): I10 - ESSENTIAL (PRIMARY) HYPERTENSION (5) Hypothyroid Code(s): E03.9 - HYPOTHYROIDISM, UNSPECIFIED Qualifiers: Hypothyroidism type: unspecified Qualified Code(s): E03.9 - Hypothyroidism , unspecified Assessment/Plan Current Medications Generic Name Dose Route Start Last Admin Trade Name Freq PRN Reason Stop Dose Admin Acetaminophen 650 mg 09/08/19 19:59 09/12/19 08:42 Tylenol - PO 650 mg Q6H PRN Administration FEVER Al Hydroxide/Mg Hydroxide 30 ml 09/10/19 20:19 09/10/19 21:25 Mylanta Oral Suspension - PO 30 ml Q6H PRN Administration DYSPEPSIA Carvedilol 3.125 mg 09/12/19 14:10 09/17/19 09:31 Coreg - PO 3.125 mg BID [facility] Administration Diphenhydramine HCl 25 mg 09/14/19 23:19 09/16/19 22:20 Benadryl - PO 25 mg HS PRN Administration INSOMNIA Donepezil HCl 10 mg 09/09/19 10:00 09/17/19 09:32 Aricept - PO Not Given DAILY [facility] Hydralazine HCl 25 mg 09/13/19 15:04 09/17/19 09:32 Apresoline - PO 25 mg BID [facility] Administration Cefazolin Sodium 1 gm/ 50 mls @ 100 mls/hr 09/17/19 10:00 09/17/19 09:31 Dextrose IVPB 100 mls/hr DAILY [facility] Administration Insulin Aspart 1 vial 09/12/19 16:30 09/17/19 06:16 Novolog Vial Sliding Scale - SQ Not Given TIDAC [facility] Protocol Insulin Aspart 1 vial 09/12/19 22:00 09/16/19 22:22 Novolog Vial Sliding Scale - SQ Not Given HS [facility] Protocol Insulin Detemir 4 units 09/12/19 22:00 09/16/19 22:21 Levemir Vial SQ Not Given HS [facility] Isosorbide Dinitrate 20 mg 09/14/19 10:00 09/17/19 09:31 Isordil - PO 20 mg BIDISORDIL [facility] Administration Levothyroxine Sodium 125 mcg 09/09/19 07:00 09/17/19 06:16 Synthroid - PO Not Given AM [facility] Miscellaneous 1 each 09/08/19 22:00 09/16/19 22:21 Lidoderm Patch Removal MC Not Given DAILY@2200 [facility] Pantoprazole Sodium 40 mg 09/11/19 10:00 09/17/19 09:32 Protonix - PO Not Given DAILY [facility] Impression 1. ESRD 2. HTN 3. cellulitis 4. DM 5. hypothyroidism 6. hx of CVA Plan - HD tomorrow - surgery follow up - renal diet - cont wound care - discussed with daughter
[2019-09-17] MEDS ORDERED: BUPIVACAINE HCL/PF 0.5% (5 MG/ML) 30 ML VIAL IJ ONE ×4 (12:34→15:02)
[2019-09-17] MEDS ORDERED: fentaNYL CITRATE 250 MCG/5 ML VIAL ONE ×3 (12:58→13:14)
[2019-09-17] MEDS ORDERED: ETOMIDATE 20 MG/10 ML AMPUL IVPUSH ONE ×2 (12:58→13:14)
[2019-09-17] MEDS ORDERED: MIDAZOLAM HCL 2 MG/2 ML SINGLE DOSE VIAL ONE ×3 (13:15)
[2019-09-17] MEDS ORDERED: PROPOFOL 20 ML ONE (13:15)
[2019-09-17] MEDS ORDERED: ROCURONIUM BROMIDE 50 MG/5 ML SYRINGE ONE (13:15)
[2019-09-17] MEDS ORDERED: ceFAZolin SODIUM 1 GM VIAL IVPB ONE (13:57)
[2019-09-17] MEDS ORDERED: GLYCOPYRROLATE 0.2 MG/1 ML VIAL ONE (14:57)
[2019-09-17] MEDS ORDERED: NEOSTIGMINE METHYLSULFATE 0.5 MG/ML - 10 ML MDV ONE (14:57)
[2019-09-17] MEDS ORDERED: DEXAMETHASONE SOD PHOSPHATE 4 MG/1 ML VIAL ONE (14:57)
[2019-09-17] MEDS ORDERED: FLUMAZENIL 0.5 MG/5 ML VIAL ONE (15:14)
[2019-09-17] MEDS ORDERED: NALOXONE HCL 0.4 MG/ML VIAL ONE (15:15)
[2019-09-17] MEDS ORDERED: ACETAMINOPHEN INJECTION 100 ML IVPB ONE (16:04)
--- NOTE | 2019-09-17 16:16 | PN ---
Progress Note (short form) - Note Progress Note: No abdominal pain and feels well. Tolerating breakfast when I saw him. VSS Abd soft, ND/NT, no mass Plan: laprascopic cholecystectomy for cholelithiasis once medically stable
[2019-09-17] MEDS ORDERED: PROPOFOL 1,000,000 MCG/100 ML VIAL ONE (16:40)
[2019-09-17] MEDS ORDERED: ACETAMINOPHEN 1000 MG/100 ML VIAL (NON FORMULARY) IVPB ONE (16:40)
[2019-09-17] MEDS: PROPOFOL 1,000,000 MCG/100 ML VIAL IVPB SCH (16:45)
[2019-09-17] MEDS ORDERED: ACETAMINOPHEN 325 MG TABLET (FP) PO PRN (16:52)
[2019-09-17] MEDS ORDERED: MAG HYDROX/AL HYDROX/SIMETH 30 ML UNIT-DOSE CUP PO PRN (16:52)
[2019-09-17] MEDS ORDERED: diphenhydrAMINE HCL 25 MG CAPSULE (FP) PO PRN (16:52)
[2019-09-17] MEDS ORDERED: SODIUM CHLORIDE 1,000 ML IV SCH ×2 (18:45→22:07)
--- NOTE | 2019-09-17 20:30 | PN ---
Progress Note, Physician History of Present Illness: intubated s/p gb surgery - Current Medication List Current Medications: Active Medications Acetaminophen (Tylenol -) 650 mg PO Q6H PRN PRN Reason: FEVER Al Hydroxide/Mg Hydroxide (Mylanta Oral Suspension -) 30 ml PO Q6H PRN PRN Reason: DYSPEPSIA Carvedilol (Coreg -) 3.125 mg PO BID [facility] Chlorhexidine Gluconate (Hibiclens For Decolonization -) 1 applic TP HS [facility] Diphenhydramine HCl (Benadryl -) 25 mg PO HS PRN PRN Reason: INSOMNIA Donepezil HCl (Aricept -) 10 mg PO DAILY [facility] Hydralazine HCl (Apresoline -) 25 mg PO BID [facility] Propofol (Diprivan -) 1,000,000 mcg in 100 mls @ 4.708 mls/hr IVPB [facility]IT[facility]; Protocol Last Admin: 09/17/19 16:45 Dose: 0 mls Sodium Chloride (Normal Saline -) 250 mls @ 3,000 mls/hr IV PRN PRN PRN Reason: Hypotension during Dialysis Stop: 09/18/19 12:27 Cefazolin Sodium 1 gm/ (Dextrose) 50 mls @ 100 mls/hr IVPB DAILY [facility] Sodium Chloride (Normal Saline -) 1,000 mls @ 50 mls/hr IV ASDIR [facility] Last Admin: 09/17/19 17:15 Dose: 0 mls Insulin Aspart (Novolog Vial Sliding Scale -) 1 vial SQ TIDAC [facility]; Protocol Insulin Aspart (Novolog Vial Sliding Scale -) 1 vial SQ HS [facility]; Protocol Insulin Detemir (Levemir Vial) 4 units SQ HS [facility] Isosorbide Dinitrate (Isordil -) 20 mg PO BIDISORDIL [facility] Levothyroxine Sodium (Synthroid -) 125 mcg PO AM [facility] Mupirocin (Bactroban Ointment (For Decolonization) -) 1 applic NS BID [facility] Stop: 09/22/19 21:59 Pantoprazole Sodium (Protonix -) 40 mg PO DAILY [facility] - Objective Vital Signs: Vital Signs Temperature 98.5 F 09/17/19 18:00 Pulse Rate 84 09/17/19 18:00 Respiratory Rate 20 09/17/19 18:00 Blood Pressure 127/64 09/17/19 18:00 O2 Sat by Pulse Oximetry (%) 98 09/17/19 16:45 Constitutional: Yes: Calm HENT: Yes: Atraumatic Neck: Yes: Supple Cardiovascular: Yes: Regular Rate and Rhythm Respiratory: Yes: Rhonchi Gastrointestinal: Yes: Hypoactive Bowel Sounds Extremities: Yes: WNL Neurological: Yes: Other (intubated and sedated) Labs: CBC, BMP 09/16/19 08:20 09/16/19 08:20 INR, PTT INR 1.08 (0.83-1.09) 09/08/19 13:33 Problem List - Problems (1) Cellulitis of right foot Assessment/Plan: iv abx id on board Code(s): L03.115 - CELLULITIS OF RIGHT LOWER LIMB (2) HTN (hypertension) Assessment/Plan: monitor Code(s): I10 - ESSENTIAL (PRIMARY) HYPERTENSION (3) Diabetes Assessment/Plan: insulin bgms Code(s): E11.9 - TYPE 2 DIABETES MELLITUS WITHOUT COMPLICATIONS Qualifiers: Diabetes mellitus type: type 2 Chronic kidney disease stage: on chronic dialysis (4) ESRD (end stage renal disease) Assessment/Plan: renal consult monitor Code(s): N18.6 - END STAGE RENAL DISEASE (5) Hypothyroid Assessment/Plan: on meds check tsh endo consult Code(s): E03.9 - HYPOTHYROIDISM, UNSPECIFIED Qualifiers: Hypothyroidism type: unspecified Qualified Code(s): E03.9 - Hypothyroidism , unspecified (6) Abdominal pain Assessment/Plan: s/p GB surgery Code(s): R10.9 - UNSPECIFIED ABDOMINAL PAIN Assessment/Plan CC TIME 30 MIN
--- NOTE | 2019-09-17 20:41 | CONSULT ---
Consultation: REQUESTING PROVIDER: CONSULT REQUEST: We have been asked to medically evaluate this patient for ICU monitoring. HISTORY OF PRESENT ILLNESS: 69 y/o/m with PMH significant for HTN, DM, pacemaker, ESRD on dialysis T//S, questionable dementia presented to ED for right foot pain and swelling. Patient recently arrived from [place]. Patient was being treated for cellulitis when his daughter noticed he was complaining of RUQ abdominal pain. CT and U/S showed gallstones with minimal gallbladder wall thickening. Patient was evaluated by surgery and had a cholecystectomy performed today. As per PACU nurse patient arrived after surgery intubated and awake but not able to extubate as patient was not taking appropriate respirations on the vent. Decision was made by anesthesia to keep patient intubated and start sedation overnight and attempt to wean patient in the morning. Patient was not difficult to intubate as per PACU nurse. REVIEW OF SYSTEMS: unable to obtain as patient is intubated and sedated PHYSICAL EXAMINATION Vital Signs - 24 hr 09/16/19 09/17/19 09/17/19 21:00 06:30 09:25 Temperature 98.3 F 98.1 F 98.2 F Pulse Rate 75 1 L 80 Respiratory 20 20 18 Rate Blood Pressure 128/99 137/56 L 138/67 O2 Sat by Pulse 98 Oximetry (%) 09/17/19 09/17/19 09/17/19 09:30 15:59 16:15 Temperature 97.8 F Pulse Rate 83 82 Respiratory 8 L 8 L Rate Blood Pressure 123/82 128/83 O2 Sat by Pulse 97 95 96 Oximetry (%) 09/17/19 09/17/19 09/17/19 16:30 16:45 16:56 Temperature Pulse Rate 82 79 Respiratory 10 10 15 Rate Blood Pressure 130/86 129/82 O2 Sat by Pulse 96 98 Oximetry (%) 09/17/19 18:00 Temperature 98.5 F Pulse Rate 84 Respiratory 20 Rate Blood Pressure 127/64 O2 Sat by Pulse Oximetry (%) GENERAL: intubated, sedated HEAD: Normal with no signs of trauma. EYES: no scleral icterus EARS, NOSE, THROAT: dry mucous membranes NECK: trachea midline LUNGS: Breath sounds equal, clear to auscultation bilaterally. No wheezes, and no crackles. No accessory muscle use. HEART: RRR, no murmur noted ABDOMEN: Soft, nontender, not distended, no bowel sounds auscultated. surgical incisions clean, dry, intact EXTREMITIES: 2+ pulses, warm, well-perfused. No peripheral edema. NEUROLOGICAL: unable to assess as patient is intubated/sedated SKIN: Warm, dry. dressing in place over heel of right foot Laboratory Results - last 24 hr 09/16/19 09/17/19 09/17/19 22:18 06:14 11:44 POC Glucometer 120 130 141 09/17/19 19:20 POC Glucometer 182 Active Medications Generic Name Dose Route Start Last Admin Trade Name Freq PRN Reason Stop Dose Admin Acetaminophen 650 mg 09/17/19 16:52 Tylenol - PO Q6H PRN FEVER Al Hydroxide/Mg Hydroxide 30 ml 09/17/19 16:52 Mylanta Oral Suspension - PO Q6H PRN DYSPEPSIA Carvedilol 3.125 mg 09/17/19 22:00 Coreg - PO BID [facility] Chlorhexidine Gluconate 1 applic 09/17/19 22:00 Hibiclens For Decolonization - TP HS [facility] Diphenhydramine HCl 25 mg 09/17/19 16:52 Benadryl - PO HS PRN INSOMNIA Donepezil HCl 10 mg 09/18/19 10:00 Aricept - PO DAILY [facility] Hydralazine HCl 25 mg 09/17/19 22:00 Apresoline - PO BID [facility] Propofol 1,000,000 mcg in 100 mls @ 4.708 mls/hr 09/17/19 17:00 09/17/19 16: 45 Diprivan - IVPB 0 mls TITR [facility] Administration Protocol 10 MCG/KG/MIN Sodium Chloride 250 mls @ 3,000 mls/hr 09/17/19 16:52 Normal Saline - IV 09/18/19 12:27 PRN PRN Hypotension during Dialysis Cefazolin Sodium 1 gm/ 50 mls @ 100 mls/hr 09/18/19 10:00 Dextrose IVPB DAILY [facility] Sodium Chloride 1,000 mls @ 50 mls/hr 09/17/19 18:45 09/17/19 17:15 Normal Saline - IV 0 mls ASDIR [facility] Administration Insulin Aspart 1 vial 09/18/19 07:00 Novolog Vial Sliding Scale - SQ TIDAC [facility] Protocol Insulin Aspart 1 vial 09/17/19 22:00 Novolog Vial Sliding Scale - SQ HS [facility] Protocol Insulin Detemir 4 units 09/17/19 22:00 Levemir Vial SQ HS [facility] Isosorbide Dinitrate 20 mg 09/17/19 18:00 Isordil - PO BIDISORDIL [facility] Levothyroxine Sodium 125 mcg 09/18/19 07:00 Synthroid - PO AM [facility] Mupirocin 1 applic 09/17/19 22:00 Bactroban Ointment (For Decolonization) - NS 09/22/19 21:59 BID [facility] Pantoprazole Sodium 40 mg 09/18/19 10:00 Protonix - PO DAILY [facility] ASSESSMENT/PLAN: 69 y/o/m with PMH significant for HTN, DM, pacemaker, ESRD on dialysis T//, questionable dementia presented to ED for right foot pain and swelling. Patient was initially being treated for cellulitis, was found to abd RUQ abd pain by daughter. Surgery was consulted and patient had a cholecystectomy done today. Patient not taking appropriate respirations (low Tidal volumes) post-op, decision made by anesthesia to keep patient intubated and sedate overnight for comfort. POD#0. #Neuro - Intubated, sedated - Propofol for sedation - Assess mental status when off sedation - Continue Donepezil - Head CT negative for acute pathology #Cardio - Hx HTN - Hold PO HTN meds while sedated/intubated, resume when extubated and awake/ alert - Hydralazine 10mg IV push once PRN ordered for hypertension - cleared by surgery for cholecystectomy - ECHO with EF 20-25% - Severe cardiomyopathy s/p SURVEYOR'S ASSISTANT/ICD #Pulm - Worsening congestive changes on CXR, repeat ordered for morning to assess for congestive changes - intubated - sedated on propofol for vent synchronocy - maintain SpO2 >90% #Renal - ESRD on HD - HD as per Renal #GI - U/S on 09/14 showed cholelithiasis without evidence of intra or extrahepatic biliary duct dilation. gallbladder slightly thickened - laprascopic cholecystectomy performed 09/17. #Endo - Hx DM - BGMs - ISS - Hold synthroid while intubated/sedated, can switch to IV if needed #ID - Continue Cefazolin as per ID - afebrile, WBC within normal limits, monitor - Right foot cellulitis #Prophylaxis - Protonix - SCDs #FEN - NPO while intubated, can consider placing NG tube for tube feeds if intubated for extended period of time - monitor and replete lytes as needed - advance to renal diet as tolerated when extubated - hold IVF due to worsening congestive changes on CXR #Disposition - ICU monitoring Visit type - Emergency Visit Emergency Visit: Yes ED Registration Date: 09/08/19 Care time: The patient presented to the Emergency Department on the above date and was hospitalized for further evaluation of their emergent condition. - New Patient This patient is new to me today: Yes Date on this admission: 09/17/19 - Critical Care Critical Care patient: Yes Total Critical Care Time (in minutes): 36 Critical Care Statement: The care of this patient involved high complexity decision making to prevent further life threatening deterioration of the patient 's condition and/or to evaluate & treat vital organ system(s) failure or risk of failure. ATTENDING PHYSICIAN STATEMENT I saw and evaluated the patient. I reviewed the resident's note and discussed the case with the resident. I agree with the resident's findings and plan as documented. SUBJECTIVE: OBJECTIVE: ASSESSMENT AND PLAN:
[2019-09-17] MEDS ORDERED: hydrALAZINE HCL 20 MG/ML VIAL IVPUSH PRN (21:40)
[2019-09-17] MEDS ORDERED: INSULIN (LEVEMIR) 100 UNITS/ML UNITS SQ SCH (22:00)
[2019-09-17] MEDS: CHLORHEXIDINE GLUCONATE 4% CLEANSER FOR DECOLONIZATION TP SCH (22:52)
[2019-09-17] MEDS: MUPIROCIN 2% TOPICAL OINTMENT FOR DECOLONIZATION NS SCH (22:52)
[2019-09-18] MEDS: PROPOFOL 1,000,000 MCG/100 ML VIAL IVPB SCH ×2 (02:36→05:50)
[2019-09-18] MEDS ORDERED: PROPOFOL 1,000,000 MCG/100 ML VIAL ONE (05:49)
[2019-09-18] MEDS: INSULIN SLIDING SCALE (NOVOLOG) 1 VIAL SQ SCH ×4 (06:07→21:13)
[2019-09-18] MEDS ORDERED: LEVOTHYROXINE NA 125 MCG TABLET (FP) PO SCH (07:00)
--- NOTE | 2019-09-18 07:53 | PN ---
Physical Exam: SUBJECTIVE: Patient seen and examined on AM rounds. no acute interval changes. Intubated, sedated with propofol. Home levothyroxine transitioned to IV, hydralazine 10mg PRN for HTN. Chest xray with worsening congestive changes this morning. OBJECTIVE: Vital Signs Period Temp Pulse Resp BP Sys/Palacios Pulse Ox Last 24 Hr 97.8 F-98.5 F 60-84 8-20 106-153/64-88 95-100 GENERAL: Intubated, sedated, no acute distress. HEENT: Normal with no signs of trauma, dry mucous membranes, trachea midline. LUNGS: Breath sounds equal, clear to auscultation bilaterally. No wheezes, and no crackles. No accessory muscle use. HEART: RRR, no murmur noted. ABDOMEN: Soft, nontender, not distended. Surgical incisions clean, dry, intact. EXTREMITIES: 2+ pulses, warm, well-perfused. No peripheral edema. NEUROLOGICAL: Unable to assess - patient is intubated/sedated SKIN: Warm, dry. Dressing in place over heel of right foot. Laboratory Results - last 24 hr 09/17/19 09/17/19 09/17/19 11:44 19:20 22:51 POC Glucometer 141 182 172 09/18/19 05:26 POC Glucometer 164 Active Medications Generic Name Dose Route Start Last Admin Trade Name Freq PRN Reason Stop Dose Admin Acetaminophen 650 mg 09/17/19 16:52 Tylenol - PO Q6H PRN FEVER Al Hydroxide/Mg Hydroxide 30 ml 09/17/19 16:52 Mylanta Oral Suspension - PO Q6H PRN DYSPEPSIA Carvedilol 3.125 mg 09/17/19 22:00 09/17/19 22:45 Coreg - PO Not Given BID [facility] Chlorhexidine Gluconate 1 applic 09/17/19 22:00 09/17/19 22:52 Hibiclens For Decolonization - TP 1 applic HS [facility] Administration Diphenhydramine HCl 25 mg 09/17/19 16:52 Benadryl - PO HS PRN INSOMNIA Donepezil HCl 10 mg 09/18/19 10:00 Aricept - PO DAILY [facility] Hydralazine HCl 25 mg 09/17/19 22:00 09/17/19 22:44 Apresoline - PO Not Given BID [facility] Hydralazine HCl 10 mg 09/17/19 21:40 Apresoline Injection - IVPUSH ONCE PRN HYPERTENSION Propofol 1,000,000 mcg in 100 mls @ 4.708 mls/hr 09/17/19 17:00 09/18/19 05: 50 Diprivan - IVPB 40 mcg/kg/min TITR [facility] 18.833 mls/hr Administration Protocol 10 MCG/KG/MIN Sodium Chloride 250 mls @ 3,000 mls/hr 09/17/19 16:52 Normal Saline - IV 09/18/19 12:27 PRN PRN Hypotension during Dialysis Cefazolin Sodium 1 gm/ 50 mls @ 100 mls/hr 09/18/19 10:00 Dextrose IVPB DAILY [facility] Insulin Aspart 1 vial 09/18/19 07:00 09/18/19 06:07 Novolog Vial Sliding Scale - SQ 3 unit TIDAC [facility] Administration Protocol Insulin Aspart 1 vial 09/17/19 22:00 09/17/19 22:53 Novolog Vial Sliding Scale - SQ Not Given HS [facility] Protocol Insulin Detemir 4 units 09/17/19 22:00 09/17/19 23:34 Levemir Vial SQ Not Given HS [facility] Isosorbide Dinitrate 20 mg 09/17/19 18:00 09/17/19 22:44 Isordil - PO Not Given BIDISORDIL [facility] Levothyroxine Sodium 125 mcg 09/18/19 07:00 09/18/19 06:06 Synthroid - PO Not Given AM [facility] Levothyroxine Sodium 90 mcg 09/18/19 07:00 Synthroid Injection - IVPUSH AM [facility] Mupirocin 1 applic 09/17/19 22:00 09/17/19 22:52 Bactroban Ointment (For Decolonization) - NS 09/22/19 21:59 1 applic BID [facility] Administration Pantoprazole Sodium 40 mg 09/18/19 10:00 Protonix - PO DAILY [facility] ASSESSMENT/PLAN: 69 y/o/m with PMH significant for HTN, DM, pacemaker, ESRD on dialysis T/Th/S, questionable dementia presented to ED for right foot pain and swelling. Patient was initially being treated for cellulitis, was found to abd RUQ abd pain by daughter. Surgery was consulted and patient had a cholecystectomy done today. Patient not taking appropriate respirations (low Tidal volumes) post-op, decision made by anesthesia to keep patient intubated and sedate overnight for comfort. POD#0. CXR with increase congestive pleural changes. #Neuro - Intubated, sedated - Propofol for sedation - Assess mental status when off sedation - Continue Donepezil - Head CT negative for acute pathology #Cardio - Hx HTN - Hold PO HTN meds while sedated/intubated, resume when extubated and awake/ alert - Hydralazine 10mg IV push once PRN ordered for hypertension - S/p cholecystectomy, now POD#1 - ECHO with EF 20-25% - Severe cardiomyopathy s/p FITNESS COORDINATOR/ICD - Consider Lasix for worsening CXR #Pulm - Worsening congestive changes on CXR, repeat ordered for morning to assess for congestive changes - Intubated, Sedated on propofol for vent synchronocy - Maintain SpO2 >92% #Renal - ESRD on HD - HD as per Renal - Consider Dorsey if giving Lasix #GI - U/S on 09/14 showed cholelithiasis without evidence of intra or extrahepatic biliary duct dilation. gallbladder slightly thickened - Laprascopic cholecystectomy performed 09/17 #Endo - Hx DM - BGMs - ISS - Hold synthroid while intubated/sedated, - Started levothyroxine IV, switch back to PO if extubated #ID - Continue Cefazolin as per ID - Afebrile, WBC within normal limits, monitor - Right foot cellulitis #Prophylaxis - Protonix - SCDs #FEN - NPO while intubated, can consider placing NG tube for tube feeds if intubated for extended period of time - Monitor and replete lytes as needed - Advance to renal diet as tolerated when extubated - Hold IVF due to worsening congestive changes on CXR #Disposition - ICU monitoring Visit type - Emergency Visit Emergency Visit: Yes ED Registration Date: 09/08/19 Care time: The patient presented to the Emergency Department on the above date and was hospitalized for further evaluation of their emergent condition. - New Patient This patient is new to me today: Yes Date on this admission: 09/18/19 - Critical Care Critical Care patient: Yes Total Critical Care Time (in minutes): 36 Critical Care Statement: The care of this patient involved high complexity decision making to prevent further life threatening deterioration of the patient 's condition and/or to evaluate & treat vital organ system(s) failure or risk of failure. ATTENDING PHYSICIAN STATEMENT I saw and evaluated the patient. I reviewed the resident's note and discussed the case with the resident. I agree with the resident's findings and plan as documented. SUBJECTIVE: OBJECTIVE: ASSESSMENT AND PLAN:
[2019-09-18 08:01] LABS: HEMATOCRIT 35.9 % (35.4-49); HEMOGLOBIN 11.8 GM/dL (11.7-16.9); MCH 30.8 pg (25.7-33.7); MCHC 32.7 g/dl (32.0-35.9); MEAN CELL VOLUME 94.2 fl (80-96); MEAN PLT VOLUME 8.3 fl (7.5-11.1); PLATELET COUNT 200 K/MM3 (134-434); RBC 3.82 M/mm3 (4.00-5.60); RDW 14.9 % (11.9-15.9)
[2019-09-18] MEDS ORDERED: ceFAZolin SODIUM 1 GM VIAL ONE (08:17)
[2019-09-18] MEDS ORDERED: DEXTROSE 5%-WATER - 50 ML IVPB ONE (08:17)
--- NOTE | 2019-09-18 08:18 | PN ---
Progress Note (short form) - Note Progress Note: POD #1 Lap Cholecystectomy patient reintubated in the OR after desatting upon extubation. Patient seen and examined while sedated on vent in ICU. Nursing reports no issues overnight. Vital Signs Temp 97.3 F L 09/18/19 08:00 Pulse 60 09/18/19 08:00 Resp 12 09/18/19 08:00 BP 118/74 09/18/19 08:00 Pulse Ox 100 09/17/19 22:00 Intake & Output 09/17/19 09/17/19 09/18/19 11:59 23:59 11:59 Intake Total 0 650 222 Output Total 50 0 Balance 0 600 222 Weight 175 lb 7 oz Intake: IV 650 222 DIPRIVAN - 1,000,000 mcg 127 In 100 ml @ 10 MCG/KG/MIN 4.708 mls/hr IVPB TITR [facility] Rx#:[id number] Normal Saline - 1,000 ml 95 @ 50 mls/hr IV ASDIR [facility] Rx#:[id number] Oral 0 Output: Urine 0 0 Void 0 0 Estimated Blood Loss 50 Other: Voiding Method Toilet Diaper # Unmeasured Voids Void 1 Bowel Movement No No No Weight Measurement Method Built in Bedscale PE: Sedated on Vent VSS ABD: Obese, soft, ND, incision c/d/i with surrounding tissue intact, no tracking erythema or active d/c LE compartments soft, supple and feet/toes warm and well perfused. Problem List - Problems (1) Cholelithiasis Assessment/Plan: POD #1 Patient remains intubated 1) Wean ET tube per anesthesia/ICU team 2) Pain control 3) Q2 positioning 4) trend labs 5) Surgery to follow Code(s): K80.20 - CALCULUS OF GALLBLADDER W/O CHOLECYSTITIS W/O OBSTRUCTION
[2019-09-18 08:21] LABS: BLOOD UREA NITROGEN 37.4 mg/dL (7-18); CALCIUM 7.8 mg/dL (8.5-10.1); CREATININE 3.7 mg/dL (0.55-1.3); MAGNESIUM 2.1 mg/dL (1.8-2.4); PHOSPHOROUS 6.7 mg/dL (2.5-4.9); POTASSIUM 4.3 mmol/L (3.5-5.1)
[2019-09-18] MEDS: DONEPEZIL HCL 10 MG TABLET (FP) PO SCH (09:12)
[2019-09-18] MEDS: PANTOPRAZOLE 40 MG TABLET (FP) PO SCH (09:12)
[2019-09-18] MEDS: hydrALAZINE HCL 25 MG TABLET (FP) PO SCH ×2 (09:12→21:12)
[2019-09-18] MEDS: ISOSORBIDE DINITRATE 20 MG TABLET (FP) PO SCH ×2 (09:12→17:29)
[2019-09-18] MEDS: CARVEDILOL 3.125 MG TABLET (FP) PO SCH ×2 (09:12→21:12)
[2019-09-18] MEDS: CEFAZOLIN 1 GM in DEXTROSE 5%-WATER - 50 ML IVPB SCH (09:14)
[2019-09-18] MEDS: MUPIROCIN 2% TOPICAL OINTMENT FOR DECOLONIZATION NS SCH ×2 (09:28→21:12)
[2019-09-18] MEDS: LEVOTHYROXINE SODIUM 100 MCG VIAL IVPUSH SCH (09:58)
--- NOTE | 2019-09-18 10:46 | OP ---
Operative Note - Note: Operative Date: 09/17/19 Pre-Operative Diagnosis: acute cholecystitis/cholelithiasis Operation: laparoscopic cholecystectomy Findings: acute cholecystitis/cholelithiasis/?ascites?/2 stones in the cystic duct. Post-Operative Diagnosis: Same as Pre-op Surgeon: Edgar Avila Data Report Analyst: Félix Hall Anesthesiologist/ENVIRONMENTAL RESOURCE SPECIALIST: Mitesh Fink Anesthesia: General Specimens Removed: gallbladder and contents Estimated Blood Loss (mls): 50
--- NOTE | 2019-09-18 11:17 | OP ---
DATE OF OPERATION: 09/17/2019 PREOPERATIVE DIAGNOSIS: Chronic cholecystitis and cholelithiasis. POSTOPERATIVE DIAGNOSIS: Chronic cholecystitis and cholelithiasis. PROCEDURE: Laparoscopic cholecystectomy. SURGEON: Edgar Avila MD SHALE MINER: Félix Montes PA-C ANESTHESIA: General. OPERATIVE FINDINGS: There was acute cholecystitis and cholelithiasis and 2 small stones in the cystic duct. There was also evidence of ascites in a moderate quantity, and the rest of the findings were unremarkable. DESCRIPTION OF PROCEDURE: The patient was placed on the operating room table in supine position. After the induction of general anesthesia, the patient's abdomen was prepped with ChloraPrep and draped in sterile fashion. Time-out was taken and then pneumoperitoneum established above the umbilicus using a Veress needle. Once 15 mm of intra-abdominal pressure was obtained, a 5-mm port was placed at the umbilicus. Additional lateral 5-mm ports and a subxiphoid 12-mm port were placed and laparoscopy carried out, and the previously noted findings were observed. The gallbladder was placed on cephalad and lateral traction, and dissection was begun at the neck of the gallbladder where the peritoneum was opened medially and laterally using blunt and sharp dissection and electrocautery. Dissection continued in the triangle of Calot where the cystic duct was identified coursing from the neck of the gallbladder distally to the common bile duct. It was dissected proximally and distally for length. Similarly, the artery was similarly identified and dissected. A critical view of safety was taken, and then the cystic duct divided proximally and distally using Endo Bella after it was clipped twice proximally and distally with large hemoclips. The artery was similarly clipped and divided. Hemostasis was checked for and noted to be good and then the gallbladder was removed from the liver bed in a retrograde fashion using electrocautery. Prior to removal from the edge of the liver, hemostasis was again verified and then the gallbladder removed from the edge of the liver, placed in an EndoCatch, and brought out through the subxiphoid port. Pneumoperitoneum was reestablished, hemostasis verified again, and then the 5-mm lateral and subxiphoid ports were removed under laparoscopic vision without evidence of bleeding from the port sites. The umbilical port was removed and the pneumoperitoneum evacuated. All port sites were infiltrated with 0.5% Marcaine and the skin edges closed with 4-0 Biosyn in a subcuticular and continuous fashion. Steri-Strips and Band-Aid dressings were placed and the procedure terminated at this point and the patient aroused from general anesthesia and transferred to the post anesthesia care unit in stable condition awake and alert. ESTIMATED BLOOD LOSS: 50 mL. REPLACEMENTS: Crystalloid. DRAINS: None. SPECIMENS: Gallbladder and contents to Pathology. I, Edgar Avila, was physically present in the operating room from the time the patient was placed on the operating room table until he was transferred intubated to the post anesthesia care unit in stable condition for eventual transfer to the ICU. MD ODALIS Vásquez/[id number] MTDD
--- NOTE | 2019-09-18 11:23 | PN ---
Teaching Attending Note Name of Resident: Gil Gomez ATTENDING PHYSICIAN STATEMENT I saw and evaluated the patient. I reviewed the resident's note and discussed the case with the resident. I agree with the resident's findings and plan as documented. SUBJECTIVE: Patient seen and examined in the ICU. Intubated overnight. Weaning/extubation in progress. Mildly confused and agitated but able to follow commands. No pressors. Intake & Output 09/15/19 09/16/19 09/17/19 09/18/19 23:59 23:59 23:59 23:59 Intake Total 500 700 650 304.9 Output Total 2000 50 0 Balance 500 -1300 600 304.9 Weight 173 lb 175 lb 7 oz Last Vital Signs Temp Pulse Resp BP Pulse Ox 97.5 F L 73 14 137/86 99 09/18/19 10:00 09/18/19 10:00 09/18/19 10:00 09/18/19 10:00 09/18/19 08:00 Active Medications Acetaminophen (Tylenol -) 650 mg PO Q6H PRN PRN Reason: FEVER Al Hydroxide/Mg Hydroxide (Mylanta Oral Suspension -) 30 ml PO Q6H PRN PRN Reason: DYSPEPSIA Carvedilol (Coreg -) 3.125 mg PO BID [facility] Last Admin: 09/18/19 09:12 Dose: Not Given Chlorhexidine Gluconate (Hibiclens For Decolonization -) 1 applic TP HS [facility] Last Admin: 09/17/19 22:52 Dose: 1 applic Diphenhydramine HCl (Benadryl -) 25 mg PO HS PRN PRN Reason: INSOMNIA Donepezil HCl (Aricept -) 10 mg PO DAILY [facility] Last Admin: 09/18/19 09:12 Dose: Not Given Hydralazine HCl (Apresoline -) 25 mg PO BID [facility] Last Admin: 09/18/19 09:12 Dose: Not Given Hydralazine HCl (Apresoline Injection -) 10 mg IVPUSH ONCE PRN PRN Reason: HYPERTENSION Propofol (Diprivan -) 1,000,000 mcg in 100 mls @ 4.708 mls/hr IVPB TITR [facility]; Protocol Last Titration: 09/18/19 09:15 Dose: 0 mcg/kg/min, 0 mls/hr Sodium Chloride (Normal Saline -) 250 mls @ 3,000 mls/hr IV PRN PRN PRN Reason: Hypotension during Dialysis Stop: 09/18/19 12:27 Cefazolin Sodium 1 gm/ (Dextrose) 50 mls @ 100 mls/hr IVPB DAILY [facility] Last Admin: 09/18/19 09:14 Dose: 100 mls/hr Insulin Aspart (Novolog Vial Sliding Scale -) 1 vial SQ TIDAC [facility]; Protocol Last Admin: 09/18/19 11:05 Dose: Not Given Insulin Aspart (Novolog Vial Sliding Scale -) 1 vial SQ HS [facility]; Protocol Last Admin: 09/17/19 22:53 Dose: Not Given Insulin Detemir (Levemir Vial) 4 units SQ HS [facility] Last Admin: 09/17/19 23:34 Dose: Not Given Isosorbide Dinitrate (Isordil -) 20 mg PO BIDISORDIL [facility] Last Admin: 09/18/19 09:12 Dose: Not Given Levothyroxine Sodium (Synthroid -) 125 mcg PO AM [facility] Last Admin: 09/18/19 06:06 Dose: Not Given Levothyroxine Sodium (Synthroid Injection -) 90 mcg IVPUSH AM [facility] Stop: 09/20/19 05:00 Last Admin: 09/18/19 09:58 Dose: 90 mcg Mupirocin (Bactroban Ointment (For Decolonization) -) 1 applic NS BID [facility] Stop: 09/22/19 21:59 Last Admin: 09/18/19 09:28 Dose: 1 applic Pantoprazole Sodium (Protonix -) 40 mg PO DAILY [facility] Last Admin: 09/18/19 09:12 Dose: Not Given GENERAL: intubated, awake, agitated HEAD: Normal with no signs of trauma. EYES: no scleral icterus EARS, NOSE, THROAT: dry mucous membranes NECK: trachea midline LUNGS: Vented, bilateral rales and rhonchi, no wheeze. HEART: RRR, no murmur noted ABDOMEN: Soft, nontender, not distended, (+) BS, surgical incisions clean, dry, intact EXTREMITIES: 2+ pulses, warm, well-perfused. No peripheral edema. NEUROLOGICAL: unable to assess as patient is intubated/sedated SKIN: Warm, dry. dressing in place over heel of right foot Laboratory Results - last 24 hr 09/17/19 09/17/19 09/17/19 11:44 19:20 22:51 WBC RBC Hgb Hct MCV MCH MCHC RDW Plt Count MPV Sodium Potassium Chloride Carbon Dioxide Anion Gap BUN Creatinine Est GFR (CKD-EPI)AfAm Est GFR (CKD-EPI)NonAf POC Glucometer 141 182 172 Random Glucose Calcium Phosphorus Magnesium 09/18/19 09/18/19 09/18/19 05:26 07:10 07:10 WBC 6.0 RBC 3.82 L Hgb 11.8 Hct 35.9 MCV 94.2 MCH 30.8 MCHC 32.7 RDW 14.9 Plt Count 200 D MPV 8.3 Sodium 139 Potassium 4.3 Chloride 104 Carbon Dioxide 25 Anion Gap 10 BUN 37.4 H Creatinine 3.7 H Est GFR (CKD-EPI)AfAm 18.09 Est GFR (CKD-EPI)NonAf 15.61 POC Glucometer 164 Random Glucose 160 H Calcium 7.8 L Phosphorus 6.7 H Magnesium 2.1 09/18/19 11:02 WBC RBC Hgb Hct MCV MCH MCHC RDW Plt Count MPV Sodium Potassium Chloride Carbon Dioxide Anion Gap BUN Creatinine Est GFR (CKD-EPI)AfAm Est GFR (CKD-EPI)NonAf POC Glucometer 155 Random Glucose Calcium Phosphorus Magnesium ASSESSMENT/PLAN: Suspected Acute Hypercapneic/Hypoxic Respiratory Failure, Resolving HTN DM Pacemaker ESRD on dialysis (T//S) (?) dementia Cellulitis DM POD #1 Lap cholecystectomy Trial of extubation HD with volume removal per Renal Donepezil Follow CXR Glycemic control ABX per ID PO when cleared by surgery Hold IVF Requires ICU monitoring Dr Richey Critical care time spent in reviewing chart, evaluating patient and formulating plan - 36 minutes.
--- NOTE | 2019-09-18 13:10 | PN ---
Progress Note (short form) - Note Progress Note: Events noted S/P Cholecystectomy S/P intubation Undergoing HD in ICU Vital Signs Period Temp Pulse Resp BP Sys/Palacios Pulse Ox Last 24 Hr 97.4 F-98.3 F 1-86 18-20 114-152/53-102 96-98 PE Awake alert Neck: Supple, No JVD Lungs: CTA CVS: s1S2 Abd: mild upper abd tenderness Ext: Rt left erythema improved Neuro: No focal deficit CMP Sodium 139 mmol/L (136-145) 09/18/19 07:10 Potassium 4.3 mmol/L (3.5-5.1) 09/18/19 07:10 Chloride 104 mmol/L (98-107) 09/18/19 07:10 Carbon Dioxide 25 mmol/L (21-32) 09/18/19 07:10 Anion Gap 10 MMOL/L (8-16) 09/18/19 07:10 BUN 37.4 mg/dL (7-18) H 09/18/19 07:10 Creatinine 3.7 mg/dL (0.55-1.3) H 09/18/19 07:10 Est GFR (CKD-EPI)AfAm 18.09 09/18/19 07:10 Est GFR (CKD-EPI)NonAf 15.61 09/18/19 07:10 POC Glucometer 155 UNITS (80-120) 09/18/19 11:02 Random Glucose 160 mg/dL (74-106) H 09/18/19 07:10 Hemoglobin A1c % 7.2 % (4.2-6.3) H 09/09/19 15:00 Calcium 7.8 mg/dL (8.5-10.1) L 09/18/19 07:10 Phosphorus 6.7 mg/dL (2.5-4.9) H 09/18/19 07:10 Magnesium 2.1 mg/dL (1.8-2.4) 09/18/19 07:10 Total Bilirubin 0.5 mg/dL (0.2-1) 09/16/19 08:20 AST 42 U/L (15-37) H 09/16/19 08:20 ALT 11 U/L (13-61) L 09/16/19 08:20 Alkaline Phosphatase 195 U/L (45-117) H 09/16/19 08:20 Creatine Kinase 143 U/L (26-308) 09/10/19 20:45 Creatine Kinase Index 1.3 % (0.0-5.0) 09/08/19 12:55 CK-MB (CK-2) 5.0 ng/mL (0.5-3.6) H 09/08/19 12:55 Troponin I 0.17 ng/ml (0.00-0.05) H 09/11/19 16:13 Total Protein 6.7 g/dl (6.4-8.2) 09/16/19 08:20 Albumin 2.5 g/dl (3.4-5.0) L 09/16/19 08:20 Triglycerides 120 mg/dL (0-150) 09/09/19 04:26 Cholesterol 94 mg/dL (50-200) 09/09/19 04:26 Total LDL Cholesterol 45 mg/dL (5-100) 09/09/19 04:26 HDL Cholesterol 37 mg/dL (40-60) L 09/09/19 04:26 TSH 3.73 uIU/ml (0.358-3.74) 09/09/19 04:26 Current Medications Generic Name Dose Route Start Last Admin Trade Name Freq PRN Reason Stop Dose Admin Acetaminophen 650 mg 09/17/19 16:52 Tylenol - PO Q6H PRN FEVER Al Hydroxide/Mg Hydroxide 30 ml 09/17/19 16:52 Mylanta Oral Suspension - PO Q6H PRN DYSPEPSIA Carvedilol 3.125 mg 09/17/19 22:00 09/18/19 09:12 Coreg - PO Not Given BID [facility] Chlorhexidine Gluconate 1 applic 09/17/19 22:00 09/17/19 22:52 Hibiclens For Decolonization - TP 1 applic HS [facility] Administration Diphenhydramine HCl 25 mg 09/17/19 16:52 Benadryl - PO HS PRN INSOMNIA Donepezil HCl 10 mg 09/18/19 10:00 09/18/19 09:12 Aricept - PO Not Given DAILY [facility] Hydralazine HCl 25 mg 09/17/19 22:00 09/18/19 09:12 Apresoline - PO Not Given BID [facility] Hydralazine HCl 10 mg 09/17/19 21:40 Apresoline Injection - IVPUSH ONCE PRN HYPERTENSION Propofol 1,000,000 mcg in 100 mls @ 4.708 mls/hr 09/17/19 17:00 09/18/19 09: 15 Diprivan - IVPB 0 mcg/kg/min TITR [facility] 0 mls/hr Titration Protocol 10 MCG/KG/MIN Sodium Chloride 250 mls @ 3,000 mls/hr 09/17/19 16:52 Normal Saline - IV 09/18/19 12:27 PRN PRN Hypotension during Dialysis Cefazolin Sodium 1 gm/ 50 mls @ 100 mls/hr 09/18/19 10:00 09/18/19 09:14 Dextrose IVPB 100 mls/hr DAILY [facility] Administration Insulin Aspart 1 vial 09/18/19 07:00 09/18/19 11:05 Novolog Vial Sliding Scale - SQ Not Given TIDAC [facility] Protocol Insulin Aspart 1 vial 09/17/19 22:00 09/17/19 22:53 Novolog Vial Sliding Scale - SQ Not Given HS [facility] Protocol Insulin Detemir 4 units 09/17/19 22:00 09/17/19 23:34 Levemir Vial SQ Not Given HS [facility] Isosorbide Dinitrate 20 mg 09/17/19 18:00 09/18/19 09:12 Isordil - PO Not Given BIDISORDIL [facility] Levothyroxine Sodium 125 mcg 09/18/19 07:00 09/18/19 06:06 Synthroid - PO Not Given AM [facility] Levothyroxine Sodium 90 mcg 09/18/19 08:00 09/18/19 09:58 Synthroid Injection - IVPUSH 09/20/19 05:00 90 mcg AM [facility] Administration Mupirocin 1 applic 09/17/19 22:00 09/18/19 09:28 Bactroban Ointment (For Decolonization) - NS 09/22/19 21:59 1 applic BID [facility] Administration Pantoprazole Sodium 40 mg 09/18/19 10:00 09/18/19 09:12 Protonix - PO Not Given DAILY [facility] AP: S/P Respiratory failure Cholecystitis Rt Foot cellulitis T2DM Hypothyroidism ESRD Off Glimepiride b/o increase risk of hypoglycemia with long acting Sulfonylurea in pt on HD. BGM Q ACHS. To give 100 KCal snack when FS <100 or D50 if FS <60 D/C Levemir 4 units daily at HS. Will restart Levemir once pt is able to take food Decrease Novolog SS coverage premeals and HS Abx as per ID Will f/u
--- NOTE | 2019-09-18 13:39 | PN ---
Progress Note, Physician History of Present Illness: On 40% VM undergoing HD post lap cholecystectomy, had not had PHARMACEUTICAL SALES SPECIALIST-D interrogated in 7 years! - Current Medication List Current Medications: Active Medications Acetaminophen (Tylenol -) 650 mg PO Q6H PRN PRN Reason: FEVER Al Hydroxide/Mg Hydroxide (Mylanta Oral Suspension -) 30 ml PO Q6H PRN PRN Reason: DYSPEPSIA Carvedilol (Coreg -) 3.125 mg PO BID [facility] Last Admin: 09/18/19 09:12 Dose: Not Given Chlorhexidine Gluconate (Hibiclens For Decolonization -) 1 applic TP HS [facility] Last Admin: 09/17/19 22:52 Dose: 1 applic Diphenhydramine HCl (Benadryl -) 25 mg PO HS PRN PRN Reason: INSOMNIA Donepezil HCl (Aricept -) 10 mg PO DAILY [facility] Last Admin: 09/18/19 09:12 Dose: Not Given Hydralazine HCl (Apresoline -) 25 mg PO BID [facility] Last Admin: 09/18/19 09:12 Dose: Not Given Hydralazine HCl (Apresoline Injection -) 10 mg IVPUSH ONCE PRN PRN Reason: HYPERTENSION Propofol (Diprivan -) 1,000,000 mcg in 100 mls @ 4.708 mls/hr IVPB TITR [facility]; Protocol Last Titration: 09/18/19 09:15 Dose: 0 mcg/kg/min, 0 mls/hr Sodium Chloride (Normal Saline -) 250 mls @ 3,000 mls/hr IV PRN PRN PRN Reason: Hypotension during Dialysis Stop: 09/18/19 12:27 Cefazolin Sodium 1 gm/ (Dextrose) 50 mls @ 100 mls/hr IVPB DAILY [facility] Last Admin: 09/18/19 09:14 Dose: 100 mls/hr Insulin Aspart (Novolog Vial Sliding Scale -) 1 vial SQ HS [facility]; Protocol Last Admin: 09/17/19 22:53 Dose: Not Given Insulin Aspart (Novolog Vial Sliding Scale -) 1 vial SQ TIDAC [facility]; Protocol Isosorbide Dinitrate (Isordil -) 20 mg PO BIDISORDIL [facility] Last Admin: 09/18/19 09:12 Dose: Not Given Levothyroxine Sodium (Synthroid -) 125 mcg PO AM [facility] Last Admin: 09/18/19 06:06 Dose: Not Given Levothyroxine Sodium (Synthroid Injection -) 90 mcg IVPUSH AM [facility] Stop: 09/20/19 05:00 Last Admin: 09/18/19 09:58 Dose: 90 mcg Mupirocin (Bactroban Ointment (For Decolonization) -) 1 applic NS BID [facility] Stop: 09/22/19 21:59 Last Admin: 09/18/19 09:28 Dose: 1 applic Pantoprazole Sodium (Protonix -) 40 mg PO DAILY [facility] Last Admin: 09/18/19 09:12 Dose: Not Given - Objective Vital Signs: Vital Signs Temperature 97.8 F 09/18/19 12:00 Pulse Rate 68 09/18/19 13:30 Respiratory Rate 17 09/18/19 13:30 Blood Pressure 137/73 09/18/19 13:30 O2 Sat by Pulse Oximetry (%) 99 09/18/19 08:00 Constitutional: Yes: No Distress, Calm Neck: Yes: Supple Cardiovascular: Yes: Regular Rate and Rhythm Respiratory: Yes: Regular, Diminished, On Venti-Mask Gastrointestinal: Yes: Soft, Hypoactive Bowel Sounds Edema: No Labs: CBC, BMP 09/18/19 07:10 09/18/19 07:10 INR, PTT INR 1.08 (0.83-1.09) 09/08/19 13:33 - ....Imaging Chest X-ray: Report Reviewed (Worsening congestion and pleural effusions) Problem List - Problems (1) Biventricular ICD (implantable cardioverter-defibrillator) in place Code(s): Z95.810 - PRESENCE OF AUTOMATIC (IMPLANTABLE) CARDIAC DEFIBRILLATOR (2) Cellulitis of right foot Code(s): L03.115 - CELLULITIS OF RIGHT LOWER LIMB (3) Diabetes Code(s): E11.9 - TYPE 2 DIABETES MELLITUS WITHOUT COMPLICATIONS Qualifiers: Diabetes mellitus type: type 2 Chronic kidney disease stage: on chronic dialysis (4) ESRD (end stage renal disease) Code(s): N18.6 - END STAGE RENAL DISEASE (5) HTN (hypertension) Code(s): I10 - ESSENTIAL (PRIMARY) HYPERTENSION (6) Hypothyroid Code(s): E03.9 - HYPOTHYROIDISM, UNSPECIFIED Qualifiers: Hypothyroidism type: unspecified Qualified Code(s): E03.9 - Hypothyroidism , unspecified (7) Cardiomyopathy Code(s): I42.9 - CARDIOMYOPATHY, UNSPECIFIED Qualifiers: Cardiomyopathy type: unspecified Qualified Code(s): I42.9 - Cardiomyopathy , unspecified Assessment/Plan 09/12/2019 Moderate dilated with severely decreased LVEF 20-25%, preserved wall motion at base, rest of segments severely HK, mod-severe MR, mild TR, pacemaker RV, mild-mod AR, mild ao dilatation 4.1 cm 1. POD #1 Lap cholecystectomy 2. Acute Hypercapneic/Hypoxic Respiratory Failure, Resolving 3. Acute on chronic systolic heart failure 4. Severe cardiomyopathy s/p PHARMACEUTICAL SALES SPECIALIST/ICD 5. HTN heart disease 6. ESRD on HD via PC 7. Rt Foot cellulitis, r/o PAD 8. Type 2 DM Ha1c 7.2% 9. Hypothyroidism 10. Dementia Plan 1. Volume removal HD per renal, repleted K 2. Wound care, abx per ID, insulin, resume ARB for renovascular protection, interrogate PHARMACEUTICAL SALES SPECIALIST-D 3. Resume carvedilol 3.125 bid with uptitrate as hemodynamics tolerate, isordil 20 bid and hydralazine 25 bid for BiDil once oral intake resumed 4. Wean FIO2 to maintain saO2
--- NOTE | 2019-09-18 14:11 | PN ---
Progress Note, Physician History of Present Illness: Pt seen and examined at bedside. He is now extubated. He is tolerating HD. - Current Medication List Current Medications: Active Medications Acetaminophen (Tylenol -) 650 mg PO Q6H PRN PRN Reason: FEVER Al Hydroxide/Mg Hydroxide (Mylanta Oral Suspension -) 30 ml PO Q6H PRN PRN Reason: DYSPEPSIA Carvedilol (Coreg -) 3.125 mg PO BID [facility] Last Admin: 09/18/19 09:12 Dose: Not Given Chlorhexidine Gluconate (Hibiclens For Decolonization -) 1 applic TP HS [facility] Last Admin: 09/17/19 22:52 Dose: 1 applic Diphenhydramine HCl (Benadryl -) 25 mg PO HS PRN PRN Reason: INSOMNIA Donepezil HCl (Aricept -) 10 mg PO DAILY [facility] Last Admin: 09/18/19 09:12 Dose: Not Given Hydralazine HCl (Apresoline -) 25 mg PO BID [facility] Last Admin: 09/18/19 09:12 Dose: Not Given Hydralazine HCl (Apresoline Injection -) 10 mg IVPUSH ONCE PRN PRN Reason: HYPERTENSION Propofol (Diprivan -) 1,000,000 mcg in 100 mls @ 4.708 mls/hr IVPB TITR [facility]; Protocol Last Titration: 09/18/19 09:15 Dose: 0 mcg/kg/min, 0 mls/hr Sodium Chloride (Normal Saline -) 250 mls @ 3,000 mls/hr IV PRN PRN PRN Reason: Hypotension during Dialysis Stop: 09/18/19 12:27 Cefazolin Sodium 1 gm/ (Dextrose) 50 mls @ 100 mls/hr IVPB DAILY [facility] Last Admin: 09/18/19 09:14 Dose: 100 mls/hr Insulin Aspart (Novolog Vial Sliding Scale -) 1 vial SQ HS [facility]; Protocol Last Admin: 09/17/19 22:53 Dose: Not Given Insulin Aspart (Novolog Vial Sliding Scale -) 1 vial SQ TIDAC [facility]; Protocol Isosorbide Dinitrate (Isordil -) 20 mg PO BIDISORDIL [facility] Last Admin: 09/18/19 09:12 Dose: Not Given Levothyroxine Sodium (Synthroid -) 125 mcg PO AM [facility] Last Admin: 09/18/19 06:06 Dose: Not Given Levothyroxine Sodium (Synthroid Injection -) 90 mcg IVPUSH AM [facility] Stop: 09/20/19 05:00 Last Admin: 09/18/19 09:58 Dose: 90 mcg Mupirocin (Bactroban Ointment (For Decolonization) -) 1 applic NS BID [facility] Stop: 09/22/19 21:59 Last Admin: 09/18/19 09:28 Dose: 1 applic Pantoprazole Sodium (Protonix -) 40 mg PO DAILY [facility] Last Admin: 09/18/19 09:12 Dose: Not Given - Objective Vital Signs: Vital Signs Temperature 97.8 F 09/18/19 12:00 Pulse Rate 68 09/18/19 13:30 Respiratory Rate 17 09/18/19 13:30 Blood Pressure 137/73 09/18/19 13:30 O2 Sat by Pulse Oximetry (%) 99 09/18/19 08:00 Constitutional: Yes: Calm Eyes: Yes: Conjunctiva Clear HENT: Yes: Atraumatic Cardiovascular: Yes: S1, S2 Respiratory: Yes: On Venti-Mask Gastrointestinal: Yes: Soft Genitourinary: Yes: WNL Musculoskeletal: Yes: WNL Edema: No Neurological: Yes: Oriented Labs: CBC, BMP 09/18/19 07:10 09/18/19 07:10 INR, PTT INR 1.08 (0.83-1.09) 09/08/19 13:33 Problem List - Problems (1) Cellulitis of right foot Code(s): L03.115 - CELLULITIS OF RIGHT LOWER LIMB (2) Diabetes Code(s): E11.9 - TYPE 2 DIABETES MELLITUS WITHOUT COMPLICATIONS Qualifiers: Diabetes mellitus type: type 2 Chronic kidney disease stage: on chronic dialysis (3) ESRD (end stage renal disease) Code(s): N18.6 - END STAGE RENAL DISEASE (4) HTN (hypertension) Code(s): I10 - ESSENTIAL (PRIMARY) HYPERTENSION (5) Hypothyroid Code(s): E03.9 - HYPOTHYROIDISM, UNSPECIFIED Qualifiers: Hypothyroidism type: unspecified Qualified Code(s): E03.9 - Hypothyroidism , unspecified Assessment/Plan Current Medications Generic Name Dose Route Start Last Admin Trade Name Freq PRN Reason Stop Dose Admin Acetaminophen 650 mg 09/17/19 16:52 Tylenol - PO Q6H PRN FEVER Al Hydroxide/Mg Hydroxide 30 ml 09/17/19 16:52 Mylanta Oral Suspension - PO Q6H PRN DYSPEPSIA Carvedilol 3.125 mg 09/17/19 22:00 09/18/19 09:12 Coreg - PO Not Given BID [facility] Chlorhexidine Gluconate 1 applic 09/17/19 22:00 09/17/19 22:52 Hibiclens For Decolonization - TP 1 applic HS [facility] Administration Diphenhydramine HCl 25 mg 09/17/19 16:52 Benadryl - PO HS PRN INSOMNIA Donepezil HCl 10 mg 09/18/19 10:00 09/18/19 09:12 Aricept - PO Not Given DAILY [facility] Hydralazine HCl 25 mg 09/17/19 22:00 09/18/19 09:12 Apresoline - PO Not Given BID [facility] Hydralazine HCl 10 mg 09/17/19 21:40 Apresoline Injection - IVPUSH ONCE PRN HYPERTENSION Propofol 1,000,000 mcg in 100 mls @ 4.708 mls/hr 09/17/19 17:00 09/18/19 09: 15 Diprivan - IVPB 0 mcg/kg/min TITR [facility] 0 mls/hr Titration Protocol 10 MCG/KG/MIN Sodium Chloride 250 mls @ 3,000 mls/hr 09/17/19 16:52 Normal Saline - IV 09/18/19 12:27 PRN PRN Hypotension during Dialysis Cefazolin Sodium 1 gm/ 50 mls @ 100 mls/hr 09/18/19 10:00 09/18/19 09:14 Dextrose IVPB 100 mls/hr DAILY [facility] Administration Insulin Aspart 1 vial 09/17/19 22:00 09/17/19 22:53 Novolog Vial Sliding Scale - SQ Not Given HS [facility] Protocol Insulin Aspart 1 vial 09/18/19 13:13 Novolog Vial Sliding Scale - SQ TIDAC [facility] Protocol Isosorbide Dinitrate 20 mg 09/17/19 18:00 09/18/19 09:12 Isordil - PO Not Given BIDISORDIL [facility] Levothyroxine Sodium 125 mcg 09/18/19 07:00 09/18/19 06:06 Synthroid - PO Not Given AM [facility] Levothyroxine Sodium 90 mcg 09/18/19 08:00 09/18/19 09:58 Synthroid Injection - IVPUSH 09/20/19 05:00 90 mcg AM [facility] Administration Mupirocin 1 applic 09/17/19 22:00 09/18/19 09:28 Bactroban Ointment (For Decolonization) - NS 09/22/19 21:59 1 applic BID [facility] Administration Pantoprazole Sodium 40 mg 09/18/19 10:00 09/18/19 09:12 Protonix - PO Not Given DAILY [facility] Impression 1. ESRD 2. HTN 3. cellulitis 4. DM 5. hypothyroidism 6. hx of CVA Plan - HD today - surgery follow up - renal diet when started on feeds - pt now extubated
[2019-09-18 15:59] LABS: ARTERIAL BLD GAS O2 SATURATION 97.7 % (95-98); ARTERIAL BLOOD GAS BASE EXCESS 4.7 meq/l (-2-2); ARTERIAL BLOOD GAS PCO2 48.4 mmHg (35-45); ARTERIAL BLOOD GAS PO2 103 mmHg (80-100); ARTERIAL BLOOD GAS pH 7.41 (7.35-7.45)
--- NOTE | 2019-09-18 17:39 | PN ---
Progress Note, Physician - Current Medication List Current Medications: Active Medications Acetaminophen (Tylenol -) 650 mg PO Q6H PRN PRN Reason: FEVER Al Hydroxide/Mg Hydroxide (Mylanta Oral Suspension -) 30 ml PO Q6H PRN PRN Reason: DYSPEPSIA Carvedilol (Coreg -) 3.125 mg PO BID [facility] Last Admin: 09/18/19 09:12 Dose: Not Given Chlorhexidine Gluconate (Hibiclens For Decolonization -) 1 applic TP HS [facility] Last Admin: 09/17/19 22:52 Dose: 1 applic Diphenhydramine HCl (Benadryl -) 25 mg PO HS PRN PRN Reason: INSOMNIA Donepezil HCl (Aricept -) 10 mg PO DAILY [facility] Last Admin: 09/18/19 09:12 Dose: Not Given Hydralazine HCl (Apresoline -) 25 mg PO BID [facility] Last Admin: 09/18/19 09:12 Dose: Not Given Hydralazine HCl (Apresoline Injection -) 10 mg IVPUSH ONCE PRN PRN Reason: HYPERTENSION Sodium Chloride (Normal Saline -) 250 mls @ 3,000 mls/hr IV PRN PRN PRN Reason: Hypotension during Dialysis Stop: 09/18/19 12:27 Cefazolin Sodium 1 gm/ (Dextrose) 50 mls @ 100 mls/hr IVPB DAILY [facility] Last Admin: 09/18/19 09:14 Dose: 100 mls/hr Insulin Aspart (Novolog Vial Sliding Scale -) 1 vial SQ HS [facility]; Protocol Last Admin: 09/17/19 22:53 Dose: Not Given Insulin Aspart (Novolog Vial Sliding Scale -) 1 vial SQ TIDAC [facility]; Protocol Last Admin: 09/18/19 16:34 Dose: Not Given Isosorbide Dinitrate (Isordil -) 20 mg PO BIDISORDIL [facility] Last Admin: 09/18/19 17:29 Dose: Not Given Levothyroxine Sodium (Synthroid -) 125 mcg PO AM [facility] Last Admin: 09/18/19 06:06 Dose: Not Given Levothyroxine Sodium (Synthroid Injection -) 90 mcg IVPUSH AM [facility] Stop: 09/20/19 05:00 Last Admin: 09/18/19 09:58 Dose: 90 mcg Mupirocin (Bactroban Ointment (For Decolonization) -) 1 applic NS BID [facility] Stop: 09/22/19 21:59 Last Admin: 09/18/19 09:28 Dose: 1 applic Pantoprazole Sodium (Protonix -) 40 mg PO DAILY [facility] Last Admin: 09/18/19 09:12 Dose: Not Given - Objective Vital Signs: Vital Signs Temperature 97.9 F 09/18/19 16:00 Pulse Rate 68 09/18/19 16:00 Respiratory Rate 17 09/18/19 16:00 Blood Pressure 133/79 09/18/19 16:00 O2 Sat by Pulse Oximetry (%) 99 09/18/19 08:00 Constitutional: Yes: No Distress HENT: Yes: Atraumatic Neck: Yes: Supple Cardiovascular: Yes: Regular Rate and Rhythm Respiratory: Yes: CTA Bilaterally Gastrointestinal: Yes: Normal Bowel Sounds Extremities: Yes: WNL Neurological: Yes: Alert, Oriented Labs: CBC, BMP 09/18/19 07:10 09/18/19 07:10 INR, PTT INR 1.08 (0.83-1.09) 09/08/19 13:33 Problem List - Problems (1) Cellulitis of right foot Assessment/Plan: iv abx id on board Code(s): L03.115 - CELLULITIS OF RIGHT LOWER LIMB (2) HTN (hypertension) Assessment/Plan: monitor Code(s): I10 - ESSENTIAL (PRIMARY) HYPERTENSION (3) Diabetes Assessment/Plan: insulin bgms Code(s): E11.9 - TYPE 2 DIABETES MELLITUS WITHOUT COMPLICATIONS Qualifiers: Diabetes mellitus type: type 2 Chronic kidney disease stage: on chronic dialysis (4) ESRD (end stage renal disease) Assessment/Plan: renal consult monitor Code(s): N18.6 - END STAGE RENAL DISEASE (5) Hypothyroid Assessment/Plan: on meds check tsh endo consult Code(s): E03.9 - HYPOTHYROIDISM, UNSPECIFIED Qualifiers: Hypothyroidism type: unspecified Qualified Code(s): E03.9 - Hypothyroidism , unspecified (6) Abdominal pain Assessment/Plan: s/p GB surgery Code(s): R10.9 - UNSPECIFIED ABDOMINAL PAIN Assessment/Plan CC TIME 30 MIN
[2019-09-18] MEDS: MELATONIN 5 MG TABLETS PO SCH (21:12)
[2019-09-18] MEDS: CHLORHEXIDINE GLUCONATE 4% CLEANSER FOR DECOLONIZATION TP SCH (21:13)
[2019-09-19 06:04] LABS: ARTERIAL BLD GAS O2 SATURATION 92.7 % (95-98); ARTERIAL BLOOD GAS BASE EXCESS 4.1 meq/l (-2-2); ARTERIAL BLOOD GAS PCO2 47.8 mmHg (35-45); ARTERIAL BLOOD GAS PO2 67.1 mmHg (80-100)
[2019-09-19 06:06] LABS: ALLENS TEST POSITIVE
[2019-09-19] MEDS: INSULIN SLIDING SCALE (NOVOLOG) 1 VIAL SQ SCH ×4 (06:38→21:14)
[2019-09-19] MEDS ORDERED: PT OWN MED DRAWER 7, Y5N ONE ×3 (06:39→09:42)
[2019-09-19 07:00] LABS: BASO % 0.8 % (0-2.0); EOS % 0.7 % (0-4.5); HEMATOCRIT 40.4 % (35.4-49); HEMOGLOBIN 13.2 GM/dL (11.7-16.9); LYMPH % 15.8 % (8-40); MCH 30.7 pg (25.7-33.7); MCHC 32.6 g/dl (32.0-35.9); MEAN CELL VOLUME 94.1 fl (80-96); MEAN PLT VOLUME 8.5 fl (7.5-11.1); MONO % 4.8 % (3.8-10.2); NEUT % 77.9 % (42.8-82.8); PLATELET COUNT 194 K/MM3 (134-434); RBC 4.29 M/mm3 (4.00-5.60); RDW 15.5 % (11.9-15.9); WHITE BLOOD COUNT 7.9 K/mm3 (4.0-10.0)
[2019-09-19 07:21] LABS: ALBUMIN 2.2 g/dl (3.4-5.0); BILIRUBIN,TOTAL 0.4 mg/dL (0.2-1); BLOOD UREA NITROGEN 24.2 mg/dL (7-18); CALCIUM 7.8 mg/dL (8.5-10.1); CREATININE 2.9 mg/dL (0.55-1.3); MAGNESIUM 2.1 mg/dL (1.8-2.4); PHOSPHOROUS 4.4 mg/dL (2.5-4.9); POTASSIUM 3.8 mmol/L (3.5-5.1)
--- NOTE | 2019-09-19 07:36 | PN ---
Progress Note (short form) - Note Progress Note: GENERAL SURGERY POD #2 s/p Lap Jody. Patient extubated yesterday. Started on clears last night. Resting in position of comfort. Denies n/v/f/c, CP, palpitations, SOB or RAMÍREZ. AVSS. Afeb. Gen: nad ABD: all surgical ports c/d/i. Problem List - Problems (1) S/P laparoscopic cholecystectomy Assessment/Plan: POD #2 s/p Lap jody Advance diet to regular (2gmNA controlled/DM/Renal) Continue medical management No further surgical intervention. On behalf of Dr. Avila, thank you for the opportunity to participate in your patient's care Code(s): Z90.49 - ACQUIRED ABSENCE OF OTHER SPECIFIED PARTS OF DIGESTIVE TRACT (2) Diabetes Code(s): E11.9 - TYPE 2 DIABETES MELLITUS WITHOUT COMPLICATIONS Qualifiers: Diabetes mellitus type: type 2 Chronic kidney disease stage: on chronic dialysis (3) ESRD (end stage renal disease) Code(s): N18.6 - END STAGE RENAL DISEASE (4) HTN (hypertension) Code(s): I10 - ESSENTIAL (PRIMARY) HYPERTENSION
[2019-09-19] MEDS ORDERED: DEXTROSE 5%-WATER - 50 ML IVPB ONE (08:01)
[2019-09-19] MEDS ORDERED: ceFAZolin SODIUM 1 GM VIAL ONE (08:01)
--- NOTE | 2019-09-19 08:35 | PN ---
Physical Exam: SUBJECTIVE: Patient seen and examined on morning ICU rounds. Patient on 3L NC. S/p HD on 09/18. No focal complaints. 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 Denies CP, SOB, nausea, vomiting. OBJECTIVE: Vital Signs Period Temp Pulse Resp BP Sys/Palacios Pulse Ox Last 24 Hr 97.5 F-98.6 F 60-74 13-17 116-144/66-86 GENERAL: Alert, oriented to person/place/month, no acute distress. HEENT: Normal with no signs of trauma, EOMI, dry mucous membranes, trachea midline, permacath dressing c/d/i without erythema or swelling LUNGS: Breath sounds equal, clear to auscultation bilaterally. No wheezes, and no crackles. No accessory muscle use. HEART: RRR, no murmur noted. ABDOMEN: Soft, mildly tender R-flank with dependent edema, not distended. Surgical incisions clean, dry, intact without erythema or swelling. EXTREMITIES: 2+ pulses, warm, well-perfused. No peripheral edema. NEUROLOGICAL: Alert and oriented x3, normal sensation throughout, CN grossly intact SKIN: Warm, dry. Dressing in place over heel of right foot. Laboratory Results - last 24 hr 09/09/19 09/18/19 09/18/19 15:35 11:02 15:45 WBC RBC Hgb Hct MCV MCH MCHC RDW Plt Count MPV Absolute Neuts (auto) Neutrophils % Lymphocytes % Monocytes % Eosinophils % Basophils % Nucleated RBC % Anticoagulation Therapy No Result Required. Puncture Site No Result Required. ABG pH 7.41 ABG pCO2 at Pt Temp 48.4 H ABG pO2 at Pt Temp 103 H ABG HCO3 29.9 H ABG O2 Sat (Measured) 97.7 ABG O2 Content 18.6 ABG Base Excess 4.7 H Paul Test No Result Required. O2 Delivery Device No Result Required. Oxygen Flow Rate No Result Required. Vent Mode No Result Required. Vent Rate No Result Required. Mechanical Rate No Result Required. Pressure Support Vent No Result Required. Sodium Potassium Chloride Carbon Dioxide Anion Gap BUN Creatinine Est GFR (CKD-EPI)AfAm Est GFR (CKD-EPI)NonAf POC Glucometer 155 Random Glucose Calcium Phosphorus Magnesium Total Bilirubin AST ALT Alkaline Phosphatase Ammonia Total Protein Albumin Hep C Ab Diagnostic >11.0 H HCV RNA PCR w/Genot Rflx [id number] Liver Fibrosis Interp 09/18/19 09/18/19 09/19/19 16:32 21:09 05:19 WBC RBC Hgb Hct MCV MCH MCHC RDW Plt Count MPV Absolute Neuts (auto) Neutrophils % Lymphocytes % Monocytes % Eosinophils % Basophils % Nucleated RBC % Anticoagulation Therapy Puncture Site ABG pH ABG pCO2 at Pt Temp ABG pO2 at Pt Temp ABG HCO3 ABG O2 Sat (Measured) ABG O2 Content ABG Base Excess Paul Test O2 Delivery Device Oxygen Flow Rate Vent Mode Vent Rate Mechanical Rate Pressure Support Vent Sodium Potassium Chloride Carbon Dioxide Anion Gap BUN Creatinine Est GFR (CKD-EPI)AfAm Est GFR (CKD-EPI)NonAf POC Glucometer 149 139 117 Random Glucose Calcium Phosphorus Magnesium Total Bilirubin AST ALT Alkaline Phosphatase Ammonia Total Protein Albumin Hep C Ab Diagnostic HCV RNA PCR w/Genot Rflx Liver Fibrosis Interp 09/19/19 09/19/19 09/19/19 05:50 06:30 06:30 WBC 7.9 RBC 4.29 Hgb 13.2 Hct 40.4 MCV 94.1 MCH 30.7 MCHC 32.6 RDW 15.5 Plt Count 194 MPV 8.5 Absolute Neuts (auto) 6.1 Neutrophils % 77.9 Lymphocytes % 15.8 Monocytes % 4.8 Eosinophils % 0.7 Basophils % 0.8 Nucleated RBC % 0 Anticoagulation Therapy No Result Required. Puncture Site Right radial ABG pH 7.40 ABG pCO2 at Pt Temp 47.8 H ABG pO2 at Pt Temp 67.1 L ABG HCO3 29.2 H ABG O2 Sat (Measured) 92.7 L ABG O2 Content 17.2 ABG Base Excess 4.1 H Paul Test Positive O2 Delivery Device N/c Oxygen Flow Rate 3lpm Vent Mode No Result Required. Vent Rate No Result Required. Mechanical Rate No Result Required. Pressure Support Vent No Result Required. Sodium 138 Potassium 3.8 Chloride 100 Carbon Dioxide 32 Anion Gap 6 L BUN 24.2 H Creatinine 2.9 H Est GFR (CKD-EPI)AfAm 24.29 Est GFR (CKD-EPI)NonAf 20.96 POC Glucometer Random Glucose 112 H Calcium 7.8 L Phosphorus 4.4 Magnesium 2.1 Total Bilirubin 0.4 AST 42 H ALT 10 L Alkaline Phosphatase 155 H Ammonia Total Protein 6.0 L Albumin 2.2 L Hep C Ab Diagnostic HCV RNA PCR w/Genot Rflx Liver Fibrosis Interp 09/19/19 06:30 WBC RBC Hgb Hct MCV MCH MCHC RDW Plt Count MPV Absolute Neuts (auto) Neutrophils % Lymphocytes % Monocytes % Eosinophils % Basophils % Nucleated RBC % Anticoagulation Therapy Puncture Site ABG pH ABG pCO2 at Pt Temp ABG pO2 at Pt Temp ABG HCO3 ABG O2 Sat (Measured) ABG O2 Content ABG Base Excess Paul Test O2 Delivery Device Oxygen Flow Rate Vent Mode Vent Rate Mechanical Rate Pressure Support Vent Sodium Potassium Chloride Carbon Dioxide Anion Gap BUN Creatinine Est GFR (CKD-EPI)AfAm Est GFR (CKD-EPI)NonAf POC Glucometer Random Glucose Calcium Phosphorus Magnesium Total Bilirubin AST ALT Alkaline Phosphatase Ammonia 14.40 Total Protein Albumin Hep C Ab Diagnostic HCV RNA PCR w/Genot Rflx Liver Fibrosis Interp Active Medications Generic Name Dose Route Start Last Admin Trade Name Freq PRN Reason Stop Dose Admin Acetaminophen 650 mg 09/17/19 16:52 09/18/19 22:57 Tylenol - PO 650 mg Q6H PRN Administration FEVER Al Hydroxide/Mg Hydroxide 30 ml 09/17/19 16:52 Mylanta Oral Suspension - PO Q6H PRN DYSPEPSIA Carvedilol 3.125 mg 09/17/19 22:00 09/18/19 21:12 Coreg - PO 3.125 mg BID [facility] Administration Chlorhexidine Gluconate 1 applic 09/17/19 22:00 09/18/19 21:13 Hibiclens For Decolonization - TP Not Given HS [facility] Diphenhydramine HCl 25 mg 09/17/19 16:52 Benadryl - PO HS PRN INSOMNIA Donepezil HCl 10 mg 09/18/19 10:00 09/18/19 09:12 Aricept - PO Not Given DAILY [facility] Hydralazine HCl 25 mg 09/17/19 22:00 09/18/19 21:12 Apresoline - PO 25 mg BID [facility] Administration Hydralazine HCl 10 mg 09/17/19 21:40 Apresoline Injection - IVPUSH ONCE PRN HYPERTENSION Sodium Chloride 250 mls @ 3,000 mls/hr 09/17/19 16:52 Normal Saline - IV 09/18/19 12:27 PRN PRN Hypotension during Dialysis Cefazolin Sodium 1 gm/ 50 mls @ 100 mls/hr 09/18/19 10:00 09/18/19 09:14 Dextrose IVPB 100 mls/hr DAILY [facility] Administration Insulin Aspart 1 vial 09/17/19 22:00 09/18/19 21:13 Novolog Vial Sliding Scale - SQ Not Given HS [facility] Protocol Insulin Aspart 1 vial 09/18/19 13:13 09/19/19 06:38 Novolog Vial Sliding Scale - SQ Not Given TIDAC [facility] Protocol Isosorbide Dinitrate 20 mg 09/17/19 18:00 09/18/19 17:29 Isordil - PO Not Given BIDISORDIL [facility] Levothyroxine Sodium 125 mcg 09/20/19 07:00 Synthroid - PO DAILY@0700 [facility] Melatonin 10 mg 09/18/19 22:00 09/18/19 21:12 Melatonin PO 10 mg HS [facility] Administration Mupirocin 1 applic 09/17/19 22:00 09/18/19 21:12 Bactroban Ointment (For Decolonization) - NS 09/22/19 21:59 1 applic BID [facility] Administration Pantoprazole Sodium 40 mg 09/18/19 10:00 09/18/19 09:12 Protonix - PO Not Given DAILY [facility] ASSESSMENT/PLAN: 69 y/o/m with PMH significant for HTN, DM, pacemaker, ESRD on dialysis T/Th/S, questionable dementia presented to ED for right foot pain and swelling. Patient was initially being treated for cellulitis, was found to abd RUQ abd pain by daughter. Surgery was consulted and patient had a cholecystectomy done today. Patient not taking appropriate respirations (low Tidal volumes) post-op, decision made by anesthesia to keep patient intubated and sedate overnight for comfort. Now extuabted, POD#2, progressing appropriately. #Neuro - Extubated 12/5 - AMS overnight into 12, normal BGM and ABG, MSE resolved - Continue Donepezil - Head CT negative for acute pathology #Cardio - Hx HTN - Continue PO HTN meds - S/p cholecystectomy, now POD#2 - ECHO with EF 20-25% - Severe cardiomyopathy s/p FOAMING MACHINE OPERATOR/ICD #Pulm - CXR improving on R, worse on L - 3L NC with 98% Sat and normal ABG - Maintain SpO2 >92% #Renal - ESRD on HD - HD as per Renal, consider again today before transfer - Consider [place] if giving Lasix #GI - U/S on 09/14 showed cholelithiasis without evidence of intra or extrahepatic biliary duct dilation. gallbladder slightly thickened - Laprascopic cholecystectomy performed 09/17 #Endo - Hx DM - BGMs - ISS - Restarted home 125 mcg synthroid #ID - Continue Cefazolin as per ID - Afebrile, WBC within normal limits, monitor - Right foot cellulitis #Prophylaxis - Protonix - SCDs #FEN - Monitor and replete lytes as needed - Advance to renal diet as tolerated - Gentle IVF as indicated #Disposition - Stable for transfer to med/surg Visit type - Emergency Visit Emergency Visit: Yes ED Registration Date: 09/08/19 Care time: The patient presented to the Emergency Department on the above date and was hospitalized for further evaluation of their emergent condition. - New Patient This patient is new to me today: No - Critical Care Critical Care patient: Yes Total Critical Care Time (in minutes): 36 Critical Care Statement: The care of this patient involved high complexity decision making to prevent further life threatening deterioration of the patient 's condition and/or to evaluate & treat vital organ system(s) failure or risk of failure. ATTENDING PHYSICIAN STATEMENT I saw and evaluated the patient. I reviewed the resident's note and discussed the case with the resident. I agree with the resident's findings and plan as documented. SUBJECTIVE: OBJECTIVE: ASSESSMENT AND PLAN:
[2019-09-19] MEDS: CEFAZOLIN 1 GM in DEXTROSE 5%-WATER - 50 ML IVPB SCH (09:49)
[2019-09-19] MEDS: hydrALAZINE HCL 25 MG TABLET (FP) PO SCH ×2 (09:49→21:22)
[2019-09-19] MEDS: MUPIROCIN 2% TOPICAL OINTMENT FOR DECOLONIZATION NS SCH ×2 (09:50→21:23)
[2019-09-19] MEDS: ISOSORBIDE DINITRATE 20 MG TABLET (FP) PO SCH ×2 (09:50→17:11)
[2019-09-19] MEDS: PANTOPRAZOLE 40 MG TABLET (FP) PO SCH (09:50)
[2019-09-19] MEDS: DONEPEZIL HCL 10 MG TABLET (FP) PO SCH (09:50)
[2019-09-19] MEDS: CARVEDILOL 3.125 MG TABLET (FP) PO SCH ×2 (09:50→21:22)
[2019-09-19] MEDS: LEVOTHYROXINE SODIUM 100 MCG VIAL IVPUSH SCH (09:58)
--- NOTE | 2019-09-19 10:13 | PN ---
Teaching Attending Note Name of Resident: Gil Gomez (\) ATTENDING PHYSICIAN STATEMENT I saw and evaluated the patient. I reviewed the resident's note and discussed the case with the resident. I agree with the resident's findings and plan as documented. SUBJECTIVE: Patient seen and examined in the ICU. Remains extubated. Awake and alert and reports feeling better. Mild abdominal discomfort to palpation. CXR: increasing pulmonary vascular congestion on the left Intake & Output 09/16/19 09/17/19 09/18/19 09/19/19 23:59 23:59 23:59 23:59 Intake Total 700 650 854.9 190 Output Total 2000 50 1500 0 Balance -1300 600 -645.1 190 Weight 173 lb 175 lb 7 oz 174 lb Last Vital Signs Temp Pulse Resp BP Pulse Ox 98.4 F 77 17 140/73 100 09/19/19 10:00 09/19/19 10:00 09/19/19 10:00 09/19/19 10:00 09/19/19 09:00 Active Medications Acetaminophen (Tylenol -) 650 mg PO Q6H PRN PRN Reason: FEVER Last Admin: 09/18/19 22:57 Dose: 650 mg Al Hydroxide/Mg Hydroxide (Mylanta Oral Suspension -) 30 ml PO Q6H PRN PRN Reason: DYSPEPSIA Carvedilol (Coreg -) 3.125 mg PO BID [facility] Last Admin: 09/19/19 09:50 Dose: 3.125 mg Chlorhexidine Gluconate (Hibiclens For Decolonization -) 1 applic TP HS [facility] Last Admin: 09/18/19 21:13 Dose: Not Given Diphenhydramine HCl (Benadryl -) 25 mg PO HS PRN PRN Reason: INSOMNIA Donepezil HCl (Aricept -) 10 mg PO DAILY [facility] Last Admin: 09/19/19 09:50 Dose: 10 mg Hydralazine HCl (Apresoline -) 25 mg PO BID [facility] Last Admin: 09/19/19 09:49 Dose: 25 mg Hydralazine HCl (Apresoline Injection -) 10 mg IVPUSH ONCE PRN PRN Reason: HYPERTENSION Sodium Chloride (Normal Saline -) 250 mls @ 3,000 mls/hr IV PRN PRN PRN Reason: Hypotension during Dialysis Stop: 09/18/19 12:27 Cefazolin Sodium 1 gm/ (Dextrose) 50 mls @ 100 mls/hr IVPB DAILY [facility] Last Admin: 09/19/19 09:49 Dose: 100 mls/hr Insulin Aspart (Novolog Vial Sliding Scale -) 1 vial SQ HS [facility]; Protocol Last Admin: 09/18/19 21:13 Dose: Not Given Insulin Aspart (Novolog Vial Sliding Scale -) 1 vial SQ TIDAC [facility]; Protocol Last Admin: 09/19/19 06:38 Dose: Not Given Isosorbide Dinitrate (Isordil -) 20 mg PO BIDISORDIL [facility] Last Admin: 09/19/19 09:50 Dose: 20 mg Levothyroxine Sodium (Synthroid -) 125 mcg PO DAILY@0700 [facility] Levothyroxine Sodium (Synthroid -) 125 mcg PO ONCE ONE Stop: 09/19/19 10:13 Melatonin (Melatonin) 10 mg PO HS [facility] Last Admin: 09/18/19 21:12 Dose: 10 mg Mupirocin (Bactroban Ointment (For Decolonization) -) 1 applic NS BID [facility] Stop: 09/22/19 21:59 Last Admin: 09/19/19 09:50 Dose: 1 applic Pantoprazole Sodium (Protonix -) 40 mg PO DAILY [facility] Last Admin: 09/19/19 09:50 Dose: 40 mg GENERAL: Extubated, awake and alert HEAD: Normal with no signs of trauma. EYES: no scleral icterus EARS, NOSE, THROAT: dry mucous membranes NECK: trachea midline LUNGS: Bilateral rales and rhonchi, no wheeze. HEART: RRR, no murmur noted ABDOMEN: Soft, nontender, not distended, (+) BS, surgical incisions clean, dry, intact EXTREMITIES: 2+ pulses, warm, well-perfused. No peripheral edema. NEUROLOGICAL: unable to assess as patient is intubated/sedated SKIN: Warm, dry. dressing in place over heel of right foot Laboratory Results - last 24 hr 09/09/19 09/18/19 09/18/19 15:35 11:02 15:45 WBC RBC Hgb Hct MCV MCH MCHC RDW Plt Count MPV Absolute Neuts (auto) Neutrophils % Lymphocytes % Monocytes % Eosinophils % Basophils % Nucleated RBC % Anticoagulation Therapy No Result Required. Puncture Site No Result Required. ABG pH 7.41 ABG pCO2 at Pt Temp 48.4 H ABG pO2 at Pt Temp 103 H ABG HCO3 29.9 H ABG O2 Sat (Measured) 97.7 ABG O2 Content 18.6 ABG Base Excess 4.7 H Paul Test No Result Required. O2 Delivery Device No Result Required. Oxygen Flow Rate No Result Required. Vent Mode No Result Required. Vent Rate No Result Required. Mechanical Rate No Result Required. Pressure Support Vent No Result Required. Sodium Potassium Chloride Carbon Dioxide Anion Gap BUN Creatinine Est GFR (CKD-EPI)AfAm Est GFR (CKD-EPI)NonAf POC Glucometer 155 Random Glucose Calcium Phosphorus Magnesium Total Bilirubin AST ALT Alkaline Phosphatase Ammonia Total Protein Albumin Hep C Ab Diagnostic >11.0 H HCV RNA PCR w/Genot Rflx [id number] Liver Fibrosis Interp 09/18/19 09/18/19 09/19/19 16:32 21:09 05:19 WBC RBC Hgb Hct MCV MCH MCHC RDW Plt Count MPV Absolute Neuts (auto) Neutrophils % Lymphocytes % Monocytes % Eosinophils % Basophils % Nucleated RBC % Anticoagulation Therapy Puncture Site ABG pH ABG pCO2 at Pt Temp ABG pO2 at Pt Temp ABG HCO3 ABG O2 Sat (Measured) ABG O2 Content ABG Base Excess Paul Test O2 Delivery Device Oxygen Flow Rate Vent Mode Vent Rate Mechanical Rate Pressure Support Vent Sodium Potassium Chloride Carbon Dioxide Anion Gap BUN Creatinine Est GFR (CKD-EPI)AfAm Est GFR (CKD-EPI)NonAf POC Glucometer 149 139 117 Random Glucose Calcium Phosphorus Magnesium Total Bilirubin AST ALT Alkaline Phosphatase Ammonia Total Protein Albumin Hep C Ab Diagnostic HCV RNA PCR w/Genot Rflx Liver Fibrosis Interp 09/19/19 09/19/19 09/19/19 05:50 06:30 06:30 WBC 7.9 RBC 4.29 Hgb 13.2 Hct 40.4 MCV 94.1 MCH 30.7 MCHC 32.6 RDW 15.5 Plt Count 194 MPV 8.5 Absolute Neuts (auto) 6.1 Neutrophils % 77.9 Lymphocytes % 15.8 Monocytes % 4.8 Eosinophils % 0.7 Basophils % 0.8 Nucleated RBC % 0 Anticoagulation Therapy No Result Required. Puncture Site Right radial ABG pH 7.40 ABG pCO2 at Pt Temp 47.8 H ABG pO2 at Pt Temp 67.1 L ABG HCO3 29.2 H ABG O2 Sat (Measured) 92.7 L ABG O2 Content 17.2 ABG Base Excess 4.1 H Paul Test Positive O2 Delivery Device N/c Oxygen Flow Rate 3lpm Vent Mode No Result Required. Vent Rate No Result Required. Mechanical Rate No Result Required. Pressure Support Vent No Result Required. Sodium 138 Potassium 3.8 Chloride 100 Carbon Dioxide 32 Anion Gap 6 L BUN 24.2 H Creatinine 2.9 H Est GFR (CKD-EPI)AfAm 24.29 Est GFR (CKD-EPI)NonAf 20.96 POC Glucometer Random Glucose 112 H Calcium 7.8 L Phosphorus 4.4 Magnesium 2.1 Total Bilirubin 0.4 AST 42 H ALT 10 L Alkaline Phosphatase 155 H Ammonia Total Protein 6.0 L Albumin 2.2 L Hep C Ab Diagnostic HCV RNA PCR w/Genot Rflx Liver Fibrosis Interp 09/19/19 06:30 WBC RBC Hgb Hct MCV MCH MCHC RDW Plt Count MPV Absolute Neuts (auto) Neutrophils % Lymphocytes % Monocytes % Eosinophils % Basophils % Nucleated RBC % Anticoagulation Therapy Puncture Site ABG pH ABG pCO2 at Pt Temp ABG pO2 at Pt Temp ABG HCO3 ABG O2 Sat (Measured) ABG O2 Content ABG Base Excess Paul Test O2 Delivery Device Oxygen Flow Rate Vent Mode Vent Rate Mechanical Rate Pressure Support Vent Sodium Potassium Chloride Carbon Dioxide Anion Gap BUN Creatinine Est GFR (CKD-EPI)AfAm Est GFR (CKD-EPI)NonAf POC Glucometer Random Glucose Calcium Phosphorus Magnesium Total Bilirubin AST ALT Alkaline Phosphatase Ammonia 14.40 Total Protein Albumin Hep C Ab Diagnostic HCV RNA PCR w/Genot Rflx Liver Fibrosis Interp ASSESSMENT/PLAN: Suspected Acute Hypercapneic/Hypoxic Respiratory Failure, Resolving HTN DM Pacemaker ESRD on dialysis (T//S) (?) dementia Cellulitis DM POD #2 Lap cholecystectomy To D/W Renal further volume removal Donepezil Follow CXR Glycemic control ABX per ID PO as tolerated 4W / 4S monitoring for oximetry Dr Richey
--- NOTE | 2019-09-19 10:44 | PN ---
Progress Note, Physician History of Present Illness: On NC post lap cholecystectomy, had not had Vik Sci PLANNER INTERN-D interrogated in 7 years! - Current Medication List Current Medications: Active Medications Acetaminophen (Tylenol -) 650 mg PO Q6H PRN PRN Reason: FEVER Last Admin: 09/18/19 22:57 Dose: 650 mg Al Hydroxide/Mg Hydroxide (Mylanta Oral Suspension -) 30 ml PO Q6H PRN PRN Reason: DYSPEPSIA Carvedilol (Coreg -) 3.125 mg PO BID [facility] Last Admin: 09/19/19 09:50 Dose: 3.125 mg Chlorhexidine Gluconate (Hibiclens For Decolonization -) 1 applic TP HS [facility] Last Admin: 09/18/19 21:13 Dose: Not Given Diphenhydramine HCl (Benadryl -) 25 mg PO HS PRN PRN Reason: INSOMNIA Donepezil HCl (Aricept -) 10 mg PO DAILY [facility] Last Admin: 09/19/19 09:50 Dose: 10 mg Hydralazine HCl (Apresoline -) 25 mg PO BID [facility] Last Admin: 09/19/19 09:49 Dose: 25 mg Hydralazine HCl (Apresoline Injection -) 10 mg IVPUSH ONCE PRN PRN Reason: HYPERTENSION Sodium Chloride (Normal Saline -) 250 mls @ 3,000 mls/hr IV PRN PRN PRN Reason: Hypotension during Dialysis Stop: 09/18/19 12:27 Cefazolin Sodium 1 gm/ (Dextrose) 50 mls @ 100 mls/hr IVPB DAILY [facility] Last Admin: 09/19/19 09:49 Dose: 100 mls/hr Insulin Aspart (Novolog Vial Sliding Scale -) 1 vial SQ HS [facility]; Protocol Last Admin: 09/18/19 21:13 Dose: Not Given Insulin Aspart (Novolog Vial Sliding Scale -) 1 vial SQ TIDAC [facility]; Protocol Last Admin: 09/19/19 06:38 Dose: Not Given Isosorbide Dinitrate (Isordil -) 20 mg PO BIDISORDIL [facility] Last Admin: 09/19/19 09:50 Dose: 20 mg Levothyroxine Sodium (Synthroid -) 125 mcg PO DAILY@0700 [facility] Levothyroxine Sodium (Synthroid -) 125 mcg PO ONCE ONE Stop: 09/19/19 10:46 Melatonin (Melatonin) 10 mg PO HS [facility] Last Admin: 09/18/19 21:12 Dose: 10 mg Mupirocin (Bactroban Ointment (For Decolonization) -) 1 applic NS BID [facility] Stop: 09/22/19 21:59 Last Admin: 09/19/19 09:50 Dose: 1 applic Pantoprazole Sodium (Protonix -) 40 mg PO DAILY [facility] Last Admin: 09/19/19 09:50 Dose: 40 mg - Objective Vital Signs: Vital Signs Temperature 98.4 F 09/19/19 10:00 Pulse Rate 77 09/19/19 10:00 Respiratory Rate 17 09/19/19 10:00 Blood Pressure 140/73 09/19/19 10:00 O2 Sat by Pulse Oximetry (%) 100 09/19/19 09:00 Constitutional: Yes: No Distress, Calm Neck: Yes: Supple Cardiovascular: Yes: Regular Rate and Rhythm Respiratory: Yes: Regular, Diminished, On Nasal O2 Gastrointestinal: Yes: Soft, Hypoactive Bowel Sounds Edema: No Labs: CBC, BMP 09/19/19 06:30 09/19/19 06:30 INR, PTT INR 1.08 (0.83-1.09) 09/08/19 13:33 - ....Imaging EKG: Report Reviewed (Tele: A-V paced @ 60) Problem List - Problems (1) Biventricular ICD (implantable cardioverter-defibrillator) in place Code(s): Z95.810 - PRESENCE OF AUTOMATIC (IMPLANTABLE) CARDIAC DEFIBRILLATOR (2) Cellulitis of right foot Code(s): L03.115 - CELLULITIS OF RIGHT LOWER LIMB (3) Diabetes Code(s): E11.9 - TYPE 2 DIABETES MELLITUS WITHOUT COMPLICATIONS Qualifiers: Diabetes mellitus type: type 2 Chronic kidney disease stage: on chronic dialysis (4) ESRD (end stage renal disease) Code(s): N18.6 - END STAGE RENAL DISEASE (5) HTN (hypertension) Code(s): I10 - ESSENTIAL (PRIMARY) HYPERTENSION (6) Hypothyroid Code(s): E03.9 - HYPOTHYROIDISM, UNSPECIFIED Qualifiers: Hypothyroidism type: unspecified Qualified Code(s): E03.9 - Hypothyroidism , unspecified (7) Cardiomyopathy Code(s): I42.9 - CARDIOMYOPATHY, UNSPECIFIED Qualifiers: Cardiomyopathy type: unspecified Qualified Code(s): I42.9 - Cardiomyopathy , unspecified Assessment/Plan 09/12/2019 Moderate dilated with severely decreased LVEF 20-25%, preserved wall motion at base, rest of segments severely HK, mod-severe MR, mild TR, pacemaker RV, mild-mod AR, mild ao dilatation 4.1 cm 1. POD #2 Lap cholecystectomy 2. Acute Hypercapneic/Hypoxic Respiratory Failure, Resolving 3. Acute on chronic systolic heart failure 4. Severe cardiomyopathy s/p PLANNER INTERN/ICD 5. HTN heart disease 6. ESRD on HD (//) via PC 7. Rt Foot cellulitis, r/o PAD 8. Type 2 DM Ha1c 7.2% 9. Hypothyroidism 10. Dementia Plan 1. Volume removal HD per renal, repleted K 2. Wound care, abx per ID, insulin, resumed ARB for renovascular protection, interrogate Vik Sci PLANNER INTERN-D 3. Resume carvedilol 3.125 bid and start losartan 25 qd with uptitrate as hemodynamics tolerate, isordil 20 bid and hydralazine 25 bid for BiDil as oral intake resumed 4. Wean FIO2 to maintain saO2
[2019-09-19] MEDS ORDERED: LEVOTHYROXINE NA 125 MCG TABLET (FP) PO ONE (10:45)
--- NOTE | 2019-09-19 14:13 | PN ---
Progress Note, Physician History of Present Illness: Pt seen and examined at bedside. He is awake and appears comfortable. - Current Medication List Current Medications: Active Medications Acetaminophen (Tylenol -) 650 mg PO Q6H PRN PRN Reason: FEVER Last Admin: 09/18/19 22:57 Dose: 650 mg Al Hydroxide/Mg Hydroxide (Mylanta Oral Suspension -) 30 ml PO Q6H PRN PRN Reason: DYSPEPSIA Carvedilol (Coreg -) 3.125 mg PO BID [facility] Last Admin: 09/19/19 09:50 Dose: 3.125 mg Chlorhexidine Gluconate (Hibiclens For Decolonization -) 1 applic TP HS [facility] Last Admin: 09/18/19 21:13 Dose: Not Given Diphenhydramine HCl (Benadryl -) 25 mg PO HS PRN PRN Reason: INSOMNIA Donepezil HCl (Aricept -) 10 mg PO DAILY [facility] Last Admin: 09/19/19 09:50 Dose: 10 mg Hydralazine HCl (Apresoline -) 25 mg PO BID [facility] Last Admin: 09/19/19 09:49 Dose: 25 mg Hydralazine HCl (Apresoline Injection -) 10 mg IVPUSH ONCE PRN PRN Reason: HYPERTENSION Sodium Chloride (Normal Saline -) 250 mls @ 3,000 mls/hr IV PRN PRN PRN Reason: Hypotension during Dialysis Stop: 09/18/19 12:27 Cefazolin Sodium 1 gm/ (Dextrose) 50 mls @ 100 mls/hr IVPB DAILY [facility] Last Admin: 09/19/19 09:49 Dose: 100 mls/hr Insulin Aspart (Novolog Vial Sliding Scale -) 1 vial SQ HS [facility]; Protocol Last Admin: 09/18/19 21:13 Dose: Not Given Insulin Aspart (Novolog Vial Sliding Scale -) 1 vial SQ TIDAC [facility]; Protocol Last Admin: 09/19/19 11:03 Dose: 2 units Isosorbide Dinitrate (Isordil -) 20 mg PO BIDISORDIL [facility] Last Admin: 09/19/19 09:50 Dose: 20 mg Levothyroxine Sodium (Synthroid -) 125 mcg PO DAILY@0700 [facility] Losartan Potassium (Cozaar -) 25 mg PO DAILY [facility] Melatonin (Melatonin) 10 mg PO HS [facility] Last Admin: 12/05/19 21:12 Dose: 10 mg Mupirocin (Bactroban Ointment (For Decolonization) -) 1 applic NS BID [facility] Stop: 09/22/19 21:59 Last Admin: 09/19/19 09:50 Dose: 1 applic Pantoprazole Sodium (Protonix -) 40 mg PO DAILY [facility] Last Admin: 09/19/19 09:50 Dose: 40 mg - Objective Vital Signs: Vital Signs Temperature 98.2 F 09/19/19 14:00 Pulse Rate 68 09/19/19 14:00 Respiratory Rate 17 09/19/19 14:00 Blood Pressure 118/69 09/19/19 14:00 O2 Sat by Pulse Oximetry (%) 100 09/19/19 09:00 Constitutional: Yes: Calm Eyes: Yes: Conjunctiva Clear HENT: Yes: Atraumatic Cardiovascular: Yes: S1, S2 Respiratory: Yes: CTA Bilaterally Gastrointestinal: Yes: Normal Bowel Sounds, Soft Genitourinary: Yes: WNL Musculoskeletal: Yes: WNL Edema: No Neurological: Yes: Oriented Psychiatric: Yes: Oriented Labs: CBC, BMP 09/19/19 06:30 09/19/19 06:30 INR, PTT INR 1.08 (0.83-1.09) 09/08/19 13:33 Problem List - Problems (1) Cellulitis of right foot Code(s): L03.115 - CELLULITIS OF RIGHT LOWER LIMB (2) Diabetes Code(s): E11.9 - TYPE 2 DIABETES MELLITUS WITHOUT COMPLICATIONS Qualifiers: Diabetes mellitus type: type 2 Chronic kidney disease stage: on chronic dialysis (3) ESRD (end stage renal disease) Code(s): N18.6 - END STAGE RENAL DISEASE (4) HTN (hypertension) Code(s): I10 - ESSENTIAL (PRIMARY) HYPERTENSION (5) Hypothyroid Code(s): E03.9 - HYPOTHYROIDISM, UNSPECIFIED Qualifiers: Hypothyroidism type: unspecified Qualified Code(s): E03.9 - Hypothyroidism , unspecified Assessment/Plan Current Medications Generic Name Dose Route Start Last Admin Trade Name Freq PRN Reason Stop Dose Admin Acetaminophen 650 mg 09/17/19 16:52 09/18/19 22:57 Tylenol - PO 650 mg Q6H PRN Administration FEVER Al Hydroxide/Mg Hydroxide 30 ml 09/17/19 16:52 Mylanta Oral Suspension - PO Q6H PRN DYSPEPSIA Carvedilol 3.125 mg 09/17/19 22:00 09/19/19 09:50 Coreg - PO 3.125 mg BID [facility] Administration Chlorhexidine Gluconate 1 applic 09/17/19 22:00 09/18/19 21:13 Hibiclens For Decolonization - TP Not Given HS [facility] Diphenhydramine HCl 25 mg 09/17/19 16:52 Benadryl - PO HS PRN INSOMNIA Donepezil HCl 10 mg 09/18/19 10:00 09/19/19 09:50 Aricept - PO 10 mg DAILY [facility] Administration Hydralazine HCl 25 mg 09/17/19 22:00 09/19/19 09:49 Apresoline - PO 25 mg BID [facility] Administration Hydralazine HCl 10 mg 09/17/19 21:40 Apresoline Injection - IVPUSH ONCE PRN HYPERTENSION Sodium Chloride 250 mls @ 3,000 mls/hr 09/17/19 16:52 Normal Saline - IV 09/18/19 12:27 PRN PRN Hypotension during Dialysis Cefazolin Sodium 1 gm/ 50 mls @ 100 mls/hr 09/18/19 10:00 09/19/19 09:49 Dextrose IVPB 100 mls/hr DAILY [facility] Administration Insulin Aspart 1 vial 09/17/19 22:00 09/18/19 21:13 Novolog Vial Sliding Scale - SQ Not Given HS [facility] Protocol Insulin Aspart 1 vial 09/18/19 13:13 09/19/19 11:03 Novolog Vial Sliding Scale - SQ 2 units TIDAC [facility] Administration Protocol Isosorbide Dinitrate 20 mg 09/17/19 18:00 09/19/19 09:50 Isordil - PO 20 mg BIDISORDIL [facility] Administration Levothyroxine Sodium 125 mcg 09/20/19 07:00 Synthroid - PO DAILY@0700 [facility] Losartan Potassium 25 mg 09/19/19 14:00 Cozaar - PO DAILY [facility] Melatonin 10 mg 09/18/19 22:00 09/18/19 21:12 Melatonin PO 10 mg HS [facility] Administration Mupirocin 1 applic 09/17/19 22:00 09/19/19 09:50 Bactroban Ointment (For Decolonization) - NS 09/22/19 21:59 1 applic BID [facility] Administration Pantoprazole Sodium 40 mg 09/18/19 10:00 09/19/19 09:50 Protonix - PO 40 mg DAILY [facility] Administration Impression 1. ESRD 2. HTN 3. cellulitis 4. DM 5. hypothyroidism 6. hx of CVA 7. cholecystectomy Plan - next HD tomorrow - orders written - monitor bp on arb, discussed with cardio - surgery follow up - renal diet
[2019-09-19] MEDS ORDERED: SODIUM CHLORIDE 250 ML IV PRN (14:16)
--- NOTE | 2019-09-19 15:07 | PN.GI ---
GI Progress Note Subjective: S/P Lap Jody: Op report reflects acute cholecystitis Extubated yesterday States feeling better - Objective Vital Signs: Vital Signs Temperature 98.2 F 09/19/19 14:00 Pulse Rate 68 09/19/19 14:00 Respiratory Rate 17 09/19/19 14:00 Blood Pressure 118/69 09/19/19 14:00 O2 Sat by Pulse Oximetry (%) 100 09/19/19 09:00 Constitutional: Calm Cardiovascular: Yes: Regular Rate and Rhythm Respiratory: Yes: CTA Bilaterally Gastrointestinal Inspection: No: Distention ...Auscultate: Yes: Normoactive Bowel Sounds ...Palpate: Yes: Soft, Tenderness (tenderness at trochar sites). No: Hepatomegaly, Splenomegaly Edema: No (No LE edema) Neurological: Yes: Alert Labs: CBC, BMP 09/19/19 06:30 09/19/19 06:30 INR, PTT INR 1.08 (0.83-1.09) 09/08/19 13:33 Hepatic Panel Total Bilirubin 0.4 mg/dL (0.2-1) 09/19/19 06:30 AST 42 U/L (15-37) H 09/19/19 06:30 ALT 10 U/L (13-61) L 09/19/19 06:30 Alkaline Phosphatase 155 U/L (45-117) H 09/19/19 06:30 Albumin 2.2 g/dl (3.4-5.0) L 09/19/19 06:30 Problem List - Problems (1) Abdominal pain Assessment/Plan: S/P Lap jody with findings of acute cholecystitis Post op care per surgery Recall GI as needed Code(s): R10.9 - UNSPECIFIED ABDOMINAL PAIN
[2019-09-19] MEDS: LOSARTAN POTASSIUM 25 MG TABLET PO SCH (17:00)
--- NOTE | 2019-09-19 18:44 | PATH ---
Surgical Pathology Report Patient Name: JESSICA AVALOS Med. Rec. #: [id number] /Age/Gender: 1950 (Age: 69) / M Account: [id number] Location: ICU [facility] HAND Taken: 09/17/2019 Received: 09/18/2019 Reported: 09/19/2019 Physicians: MD Susana Sibley M.D. Specimen(s) Received GALLBLADDER Clinical History Cholecystitis Final Diagnosis GALLBLADDER, CHOLECYSTECTOMY: CHRONIC CHOLECYSTITIS AND CHOLELITHIASIS. Electronically Signed Ramiro Vyas M.D. Gross Description Received in formalin, labeled "gallbladder," is a 5.7 x 2.0 x 1.7 cm. gallbladder with a 0.2 cm. in length portion of cystic duct attached. The outer surface is crooks-oakley with a focal defect and varies from smooth to shaggy. The lumen contains green, tenacious bile as well as abundant black, irregular choleliths ranging from 0.1-0.5 cm in greatest dimension. The mucosa is crooks green and velvety. The wall of the gallbladder averages 0.2 cm. in thickness. Supervisor Production sections are submitted in one cassette. 09/18/201909/18/2019
--- NOTE | 2019-09-19 19:26 | PN ---
Progress Note (short form) - Note Progress Note: Hospitalist Medicine Pt seen at bedside. Resting in bed, on 3L NC, sat well. Eating dinner. New to service Extubated yesterday s/p lap jody Vitals 09/19/19 18:00 Temperature 98.0 F Pulse Rate 71 Respiratory 17 Rate Blood Pressure 122/76 GENERAL: Alert, oriented to person/place/month, no acute distress. HEENT: Normal with no signs of trauma, permacath dressing c/d/i without erythema or swelling LUNGS: Breath sounds equal, clear to auscultation bilaterally. No accessory muscle use. HEART: S1, S2, RRR, no murmur noted. ABDOMEN: Soft, mildly tender R-flank with dependent edema, not distended. Surgical incisions c/d/i EXTREMITIES: 2+ pt pulses, warm, well-perfused. No peripheral edema. NEUROLOGICAL: Alert and oriented x3, normal sensation throughout, operations scheduler 2-12 grossly intact. able to move UE, LE would not participate in neuro exam SKIN: Warm, dry. Dressing in place over heel of right foot. Laboratory Tests 09/19/19 09/19/19 06:30 06:30 WBC 7.9 Hgb 13.2 Hct 40.4 Plt Count 194 Sodium 138 Potassium 3.8 Chloride 100 Carbon Dioxide 32 BUN 24.2 H Creatinine 2.9 H Random Glucose 112 H Calcium 7.8 L AST 42 H ALT 10 L Alkaline Phosphatase 155 H Microbiology 09/14/19 17:05 Stool Clostridioides difficile Antigen - Final 09/14/19 17:05 Stool Clostridioides difficile Toxin Assay - Final 09/08/19 16:38 Urine - Urine Clean Catch Urine Culture - Final Normal Urogenital [place] 09/08/19 13:35 Blood - Peripheral Venous Blood Culture - Final NO GROWTH AFTER 5 DAYS INCUBATION 09/08/19 13:35 Blood - Peripheral Venous Blood Culture - Final NO GROWTH AFTER 5 DAYS INCUBATION ASSESSMENT/PLAN: 69 y/o/m with PMH significant for HTN, DM, pacemaker, ESRD on dialysis T//S, questionable dementia presented to ED for right foot pain and swelling. Patient was initially being treated for cellulitis, was found to abd RUQ abd pain by daughter. Surgery was consulted and patient had a cholecystectomy done today. Patient not taking appropriate respirations (low Tidal volumes) post-op, decision made by anesthesia to keep patient intubated and sedate overnight for comfort. Now extuabted, POD#2, progressing appropriately. #Neuro -Extubated 09/18 -mentating well Dementia - C/w Donepezil - CTH (-) for acute path #Cardio - Hx HTN, hx CANVAS REPAIRER/ICD - c/w coreg, hydralazine, losartan - ECHO w/ systolic dysfnc EF 20-25% - Severe cardiomyopathy s/p CANVAS REPAIRER/ICD -had not had [employer] CANVAS REPAIRER-D interrogated in 7 years #Pulm -Acute Hypercapneic/Hypoxic Respiratory Failure -has improved, c/w CO2 tidal monitoring -sat well on 3L NC, wean as tolerated -Maintain SpO2 >92% #Renal - ESRD on HD - next HD tomorrow (09/20) -Volume removal HD per renal, repleted K -monitor BP on ARB #GI s/p lap jody (09/17) -U/S on 09/14 showed cholelithiasis without evidence of intra or extrahepatic biliary duct dilation. gallbladder slightly thickened -GI on board: Dr. Julia Pete #Endo - DM - BGMs, ISS ACHS -Endocrine: Dr. Barboza -Hypothroidism - Restarted home 125 mcg synthroid #ID - R foot cellulitis - Continue Cefazolin as per ID - afebrile, w/o leukocytosis currently -c/t monitor blood cx, ucx #FEN avoid IVF as HD pt, unless needed continue to follow lytes renal diet #PPX - GI PPX: Protonix - DVT PPX: SCDs #Disposition -for 4w/4s transfer <Tracey King - Last Filed: 09/19/19 19:44> - Note Progress Note: Seen and examined; I agree with the above documentation as outlined by the resident aside from as supplemented by myself below. All historical and roach PE findings along side diagnostics independently verified. Case was discussed at length with the resident team. All questions were answered. Pain is controlled; doing well on floor. No fevers or events reported to us overnight. 10 sys ROS done and negative aside from HPI NAD AAO resting in bed NC AT EOMI PERRLA HR wnl, +s1/2 Lungs without focal crackles, rales; w/ sym exp NT ND +BS CN2-12 wnl, no fnd Normal mood, appropriate behavior 09/19/2019 [employer] CANVAS REPAIRER-D interrogated, 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 08/2019 10 beat run of NSVT self- terminated w/o therapy. 09/12/2019 Moderate dilated with severely decreased LVEF 20-25%, preserved wall motion at base, rest of segments severely HK, mod-severe MR, mild TR, pacemaker RV, mild-mod AR, mild ao dilatation 4.1 cm A/P: Continues to be pending DC approvals. He presented to the hospital with RUQ pain and was found to have cholecystitis and was treated surgically and had a difficult etubation and was kept in ICU. He was transferred to our service and has done well since. He has ESRD on TTS HD and needs OP services and placement coordinated. Convert to PO keflex on DC. Stable overall presentation. FU OP With vascular. Problems include: -Acute respiratory failure (remains resolved; status post intubation) -Severe HFrEF 2/2 ischemic CM (c/w Carvedilol, Losartan, isosordil, hydralazine. Management per Dr. Day. Had a negative interrogation of AICD. Echo 20-25%. No plans for advanced devices, etc.) -ESRD on HD (set up OP HD services, FU with Dr. Dubose, OP fistula placement) -HTN (Stable) -Cellulitis (Was on abx per ID; -Hx DM (continue current management; monitoring AC+HS fsg) -Hx CVA (Noted; continue home meds. No change in neuro exam) -History of dementia (continue donepezil; alzheimer type with likely vascular component) -Status Post Cholecystectomy (No issues postop, no wound infection, FU OP with sgy.) -Hx hypothyroidism (no s/s myxedema; FU OP TSH and continue current management) <Zeferino Moore - Last Filed: 09/27/19 07:30>
--- NOTE | 2019-09-19 19:59 | PN ---
Progress Note (short form) - Note Progress Note: transfered to hospitalist service as per family wishes Problem List - Problems (1) Cellulitis of right foot Code(s): L03.115 - CELLULITIS OF RIGHT LOWER LIMB (2) HTN (hypertension) Code(s): I10 - ESSENTIAL (PRIMARY) HYPERTENSION (3) Diabetes Code(s): E11.9 - TYPE 2 DIABETES MELLITUS WITHOUT COMPLICATIONS Qualifiers: Diabetes mellitus type: type 2 Chronic kidney disease stage: on chronic dialysis (4) ESRD (end stage renal disease) Code(s): N18.6 - END STAGE RENAL DISEASE (5) Hypothyroid Code(s): E03.9 - HYPOTHYROIDISM, UNSPECIFIED Qualifiers: Hypothyroidism type: unspecified Qualified Code(s): E03.9 - Hypothyroidism , unspecified (6) Abdominal pain Code(s): R10.9 - UNSPECIFIED ABDOMINAL PAIN
[2019-09-19] MEDS: MELATONIN 5 MG TABLETS PO SCH (21:22)
[2019-09-19] MEDS: CHLORHEXIDINE GLUCONATE 4% CLEANSER FOR DECOLONIZATION TP SCH (21:23)
[2019-09-20] MEDS ORDERED: PT OWN MED DRAWER 7, Y5N ONE ×2 (06:21→09:21)
[2019-09-20] MEDS: INSULIN SLIDING SCALE (NOVOLOG) 1 VIAL SQ SCH ×4 (06:31→21:17)
[2019-09-20] MEDS ORDERED: LEVOTHYROXINE NA 125 MCG TABLET (FP) PO SCH (07:00)
--- NOTE | 2019-09-20 08:05 | PN ---
Physical Exam: SUBJECTIVE: Patient seen and examined. No acute events overnight. Offers no complaints. on 3L NC comfortable. Saturating well. s/p HD OBJECTIVE: Vital Signs Period Temp Pulse Resp BP Sys/Palacios Pulse Ox Last 24 Hr 97.4 F-98.5 F 64-84 16-20 114-146/64-93 100-100 GENERAL: Alert, oriented to person/place/month, no acute distress. HEENT: Normal with no signs of trauma, permacath dressing c/d/i without erythema or swelling LUNGS: Breath sounds equal, clear to auscultation bilaterally. No accessory muscle use. HEART: S1, S2, RRR, no murmur noted. ABDOMEN: Soft, mildly tender R-flank with dependent edema, not distended. Surgical incisions c/d/i EXTREMITIES: 2+ pt pulses, warm, well-perfused. No peripheral edema. NEUROLOGICAL: Alert and oriented x3, normal sensation throughout, acls specialist 2-12 grossly intact. SKIN: Warm, dry. Dressing in place over heel of right foot. Laboratory Results - last 24 hr 09/19/19 09/19/19 09/19/19 10:59 16:48 21:11 POC Glucometer 156 192 191 09/20/19 06:24 POC Glucometer 177 Active Medications Generic Name Dose Route Start Last Admin Trade Name Freq PRN Reason Stop Dose Admin Acetaminophen 650 mg 09/17/19 16:52 09/18/19 22:57 Tylenol - PO 650 mg Q6H PRN Administration FEVER Al Hydroxide/Mg Hydroxide 30 ml 09/17/19 16:52 Mylanta Oral Suspension - PO Q6H PRN DYSPEPSIA Carvedilol 3.125 mg 09/17/19 22:00 09/19/19 21:22 Coreg - PO 3.125 mg BID [facility] Administration Chlorhexidine Gluconate 1 applic 09/17/19 22:00 09/19/19 21:23 Hibiclens For Decolonization - TP 1 applic HS [facility] Administration Diphenhydramine HCl 25 mg 09/17/19 16:52 Benadryl - PO HS PRN INSOMNIA Donepezil HCl 10 mg 09/18/19 10:00 09/19/19 09:50 Aricept - PO 10 mg DAILY [facility] Administration Heparin Sodium (Porcine) 5,000 unit 09/20/19 10:00 Heparin - SQ TID [facility] Hydralazine HCl 25 mg 09/17/19 22:00 09/19/19 21:22 Apresoline - PO 25 mg BID [facility] Administration Sodium Chloride 250 mls @ 3,000 mls/hr 09/17/19 16:52 Normal Saline - IV 09/18/19 12:27 PRN PRN Hypotension during Dialysis Cefazolin Sodium 1 gm/ 50 mls @ 100 mls/hr 09/18/19 10:00 09/19/19 09:49 Dextrose IVPB 100 mls/hr DAILY [facility] Administration Sodium Chloride 250 mls @ 3,000 mls/hr 09/19/19 14:16 Normal Saline - IV 09/20/19 14:16 PRN PRN Hypotension during Dialysis Insulin Aspart 1 vial 09/17/19 22:00 09/19/19 21:14 Novolog Vial Sliding Scale - SQ Not Given HS [facility] Protocol Insulin Aspart 1 vial 09/18/19 13:13 09/20/19 06:31 Novolog Vial Sliding Scale - SQ 2 units TIDAC [facility] Administration Protocol Isosorbide Dinitrate 20 mg 09/17/19 18:00 09/19/19 17:11 Isordil - PO 20 mg BIDISORDIL [facility] Administration Levothyroxine Sodium 125 mcg 09/20/19 07:00 09/20/19 06:30 Synthroid - PO 125 mcg DAILY@0700 [facility] Administration Losartan Potassium 25 mg 09/19/19 14:00 09/19/19 17:00 Cozaar - PO 25 mg DAILY [facility] Administration Melatonin 10 mg 09/18/19 22:00 09/19/19 21:22 Melatonin PO 10 mg HS [facility] Administration Mupirocin 1 applic 09/17/19 22:00 09/19/19 21:23 Bactroban Ointment (For Decolonization) - NS 09/22/19 21:59 1 applic BID [facility] Administration Pantoprazole Sodium 40 mg 09/18/19 10:00 09/19/19 09:50 Protonix - PO 40 mg DAILY [facility] Administration ASSESSMENT/PLAN: #Acute Hypoxic Respiratory Failure- resolved #POD #3 Lap cholecystectomy #R ft Cellulitis #HTN #DM #Pacemaker #ESRD on dialysis (T/Th/S) #DM -s/p HD this AM -follow am cxr -SSI -IV abx: Cefazolin per ID -can be monitored on tele floor -dvt ppx Visit type - Emergency Visit Emergency Visit: Yes ED Registration Date: 09/08/19 Care time: The patient presented to the Emergency Department on the above date and was hospitalized for further evaluation of their emergent condition. - New Patient This patient is new to me today: Yes Date on this admission: 09/20/19 - Critical Care Critical Care patient: Yes Total Critical Care Time (in minutes): 35 Critical Care Statement: The care of this patient involved high complexity decision making to prevent further life threatening deterioration of the patient 's condition and/or to evaluate & treat vital organ system(s) failure or risk of failure. ATTENDING PHYSICIAN STATEMENT I saw and evaluated the patient. I reviewed the resident's note and discussed the case with the resident. I agree with the resident's findings and plan as documented. SUBJECTIVE: OBJECTIVE: ASSESSMENT AND PLAN:
[2019-09-20 08:29] LABS: BILIRUBIN,TOTAL 0.4 mg/dL (0.2-1); BLOOD UREA NITROGEN 42.8 mg/dL (7-18); CALCIUM 7.5 mg/dL (8.5-10.1); CREATININE 4.2 mg/dL (0.55-1.3); MAGNESIUM 2.1 mg/dL (1.8-2.4); PHOSPHOROUS 4.4 mg/dL (2.5-4.9); POTASSIUM 3.6 mmol/L (3.5-5.1); TOT PROT 5.3 g/dl (6.4-8.2)
[2019-09-20 08:52] LABS: BASO % 0.6 % (0-2.0); EOS % 0.8 % (0-4.5); HEMATOCRIT 38.7 % (35.4-49); HEMOGLOBIN 12.5 GM/dL (11.7-16.9); LYMPH % 12.6 % (8-40); MCH 30.7 pg (25.7-33.7); MCHC 32.4 g/dl (32.0-35.9); MEAN CELL VOLUME 94.9 fl (80-96); MEAN PLT VOLUME 8.7 fl (7.5-11.1); MONO % 5.4 % (3.8-10.2); NEUT % 80.6 % (42.8-82.8); PLATELET COUNT 200 K/MM3 (134-434); RBC 4.08 M/mm3 (4.00-5.60); RDW 15.2 % (11.9-15.9); WHITE BLOOD COUNT 8.5 K/mm3 (4.0-10.0)
--- NOTE | 2019-09-20 09:18 | PN ---
Teaching Attending Note Name of Resident: Earl Watkins ATTENDING PHYSICIAN STATEMENT I saw and evaluated the patient. I reviewed the resident's note and discussed the case with the resident. I agree with the resident's findings and plan as documented. SUBJECTIVE: Patient seen and examined in the ICU. Awake and alert on HD. Denies CP or SOB. Still with some mild abdominal discomfort to palpation. Intake & Output 09/17/19 09/18/19 09/19/19 09/20/19 23:59 23:59 23:59 23:59 Intake Total 650 854.9 640 350 Output Total 50 1500 0 Balance 600 -645.1 640 350 Weight 175 lb 7 oz 174 lb 175 lb 8 oz Last Vital Signs Temp Pulse Resp BP Pulse Ox 97.4 F L 60 22 H 147/60 100 09/20/19 06:50 09/20/19 08:25 09/20/19 08:25 09/20/19 08:25 09/19/19 20:01 Active Medications Acetaminophen (Tylenol -) 650 mg PO Q6H PRN PRN Reason: FEVER Last Admin: 09/18/19 22:57 Dose: 650 mg Al Hydroxide/Mg Hydroxide (Mylanta Oral Suspension -) 30 ml PO Q6H PRN PRN Reason: DYSPEPSIA Carvedilol (Coreg -) 3.125 mg PO BID [facility] Last Admin: 09/19/19 21:22 Dose: 3.125 mg Chlorhexidine Gluconate (Hibiclens For Decolonization -) 1 applic TP HS [facility] Last Admin: 09/19/19 21:23 Dose: 1 applic Diphenhydramine HCl (Benadryl -) 25 mg PO HS PRN PRN Reason: INSOMNIA Donepezil HCl (Aricept -) 10 mg PO DAILY [facility] Last Admin: 09/19/19 09:50 Dose: 10 mg Heparin Sodium (Porcine) (Heparin -) 5,000 unit SQ TID [facility] Hydralazine HCl (Apresoline -) 25 mg PO BID [facility] Last Admin: 09/19/19 21:22 Dose: 25 mg Sodium Chloride (Normal Saline -) 250 mls @ 3,000 mls/hr IV PRN PRN PRN Reason: Hypotension during Dialysis Stop: 09/18/19 12:27 Cefazolin Sodium 1 gm/ (Dextrose) 50 mls @ 100 mls/hr IVPB DAILY [facility] Last Admin: 09/19/19 09:49 Dose: 100 mls/hr Sodium Chloride (Normal Saline -) 250 mls @ 3,000 mls/hr IV PRN PRN PRN Reason: Hypotension during Dialysis Stop: 09/20/19 14:16 Insulin Aspart (Novolog Vial Sliding Scale -) 1 vial SQ HS [facility]; Protocol Last Admin: 09/19/19 21:14 Dose: Not Given Insulin Aspart (Novolog Vial Sliding Scale -) 1 vial SQ TIDAC [facility]; Protocol Last Admin: 09/20/19 06:31 Dose: 2 units Isosorbide Dinitrate (Isordil -) 20 mg PO BIDISORDIL [facility] Last Admin: 09/19/19 17:11 Dose: 20 mg Levothyroxine Sodium (Synthroid -) 125 mcg PO DAILY@0700 [facility] Last Admin: 09/20/19 06:30 Dose: 125 mcg Losartan Potassium (Cozaar -) 25 mg PO DAILY [facility] Last Admin: 09/19/19 17:00 Dose: 25 mg Melatonin (Melatonin) 10 mg PO HS [facility] Last Admin: 09/19/19 21:22 Dose: 10 mg Mupirocin (Bactroban Ointment (For Decolonization) -) 1 applic NS BID [facility] Stop: 09/22/19 21:59 Last Admin: 09/19/19 21:23 Dose: 1 applic Pantoprazole Sodium (Protonix -) 40 mg PO DAILY [facility] Last Admin: 09/19/19 09:50 Dose: 40 mg GENERAL: Extubated, awake and alert HEAD: Normal with no signs of trauma. EYES: no scleral icterus EARS, NOSE, THROAT: dry mucous membranes NECK: trachea midline LUNGS: Bilateral rales and rhonchi, no wheeze. HEART: RRR, no murmur noted ABDOMEN: Soft, nontender, not distended, (+) BS, surgical incisions clean, dry, intact EXTREMITIES: 2+ pulses, warm, well-perfused. No peripheral edema. NEUROLOGICAL: unable to assess as patient is intubated/sedated SKIN: Warm, dry. dressing in place over heel of right foot Laboratory Results - last 24 hr 09/19/19 09/19/19 09/19/19 10:59 16:48 21:11 WBC RBC Hgb Hct MCV MCH MCHC RDW Plt Count MPV Absolute Neuts (auto) Neutrophils % Lymphocytes % Monocytes % Eosinophils % Basophils % Nucleated RBC % Sodium Potassium Chloride Carbon Dioxide Anion Gap BUN Creatinine Est GFR (CKD-EPI)AfAm Est GFR (CKD-EPI)NonAf POC Glucometer 156 192 191 Random Glucose Calcium Phosphorus Magnesium Total Bilirubin AST ALT Alkaline Phosphatase Total Protein Albumin 09/20/19 09/20/19 09/20/19 06:24 06:55 06:55 WBC 8.5 RBC 4.08 Hgb 12.5 Hct 38.7 MCV 94.9 MCH 30.7 MCHC 32.4 RDW 15.2 Plt Count 200 MPV 8.7 Absolute Neuts (auto) 6.8 Neutrophils % 80.6 Lymphocytes % 12.6 D Monocytes % 5.4 Eosinophils % 0.8 Basophils % 0.6 Nucleated RBC % 0 Sodium 137 Potassium 3.6 Chloride 100 Carbon Dioxide 30 Anion Gap 7 L BUN 42.8 H Creatinine 4.2 H Est GFR (CKD-EPI)AfAm 15.52 Est GFR (CKD-EPI)NonAf 13.39 POC Glucometer 177 Random Glucose 182 H Calcium 7.5 L Phosphorus 4.4 Magnesium 2.1 Total Bilirubin 0.4 AST 26 ALT 7 L Alkaline Phosphatase 138 H Total Protein 5.3 L Albumin 2.0 L ASSESSMENT/PLAN: Acute Hypercapneic/Hypoxic Respiratory Failure, Resolving HTN DM Pacemaker ESRD on dialysis (T//S) (?) dementia Cellulitis DM POD #3 Lap cholecystectomy HD for volume removal Donepezil Glycemic control ABX per ID PO as tolerated Floor Dr Richey
[2019-09-20] MEDS ORDERED: DEXTROSE 5%-WATER - 50 ML IVPB ONE (09:22)
[2019-09-20] MEDS ORDERED: ceFAZolin SODIUM 1 GM VIAL ONE (09:22)
--- NOTE | 2019-09-20 09:24 | PN ---
Progress Note (short form) - Note Progress Note: RENAL Pt is awake and alert denies complaints Last Vital Signs Temp Pulse Resp BP Pulse Ox 97.4 F L 60 22 H 147/60 100 09/20/19 06:50 09/20/19 08:25 09/20/19 08:25 09/20/19 08:25 09/19/19 20:01 AICD palpable on left chest lungs clear cvs s1s2 rr abd soft ext no edema neuro a+ox3 CBC, BMP 09/20/19 06:55 09/20/19 06:55 Current Medications Generic Name Dose Route Start Last Admin Trade Name Freq PRN Reason Stop Dose Admin Acetaminophen 650 mg 09/17/19 16:52 09/18/19 22:57 Tylenol - PO 650 mg Q6H PRN Administration FEVER Al Hydroxide/Mg Hydroxide 30 ml 09/17/19 16:52 Mylanta Oral Suspension - PO Q6H PRN DYSPEPSIA Carvedilol 3.125 mg 09/17/19 22:00 09/19/19 21:22 Coreg - PO 3.125 mg BID OSCAR Administration Chlorhexidine Gluconate 1 applic 09/17/19 22:00 09/19/19 21:23 Hibiclens For Decolonization - TP 1 applic HS OSCAR Administration Diphenhydramine HCl 25 mg 09/17/19 16:52 Benadryl - PO HS PRN INSOMNIA Donepezil HCl 10 mg 09/18/19 10:00 09/19/19 09:50 Aricept - PO 10 mg DAILY [facility] Administration Heparin Sodium (Porcine) 5,000 unit 09/20/19 10:00 Heparin - SQ TID OSCAR Hydralazine HCl 25 mg 09/17/19 22:00 09/19/19 21:22 Apresoline - PO 25 mg BID OSCAR Administration Sodium Chloride 250 mls @ 3,000 mls/hr 09/17/19 16:52 Normal Saline - IV 09/18/19 12:27 PRN PRN Hypotension during Dialysis Cefazolin Sodium 1 gm/ 50 mls @ 100 mls/hr 09/18/19 10:00 09/19/19 09:49 Dextrose IVPB 100 mls/hr DAILY [facility] Administration Sodium Chloride 250 mls @ 3,000 mls/hr 09/19/19 14:16 Normal Saline - IV 09/20/19 14:16 PRN PRN Hypotension during Dialysis Insulin Aspart 1 vial 09/17/19 22:00 09/19/19 21:14 Novolog Vial Sliding Scale - SQ Not Given HS O[facility]AR Protocol Insulin Aspart 1 vial 09/18/19 13:13 09/20/19 06:31 Novolog Vial Sliding Scale - SQ 2 units TIDAC [facility]AR Administration Protocol Isosorbide Dinitrate 20 mg 09/17/19 18:00 09/19/19 17:11 Isordil - PO 20 mg BIDISORDIL [facility] Administration Levothyroxine Sodium 125 mcg 09/20/19 07:00 09/20/19 06:30 Synthroid - PO 125 mcg DAILY@0700 O[facility] Administration Losartan Potassium 25 mg 09/19/19 14:00 09/19/19 17:00 Cozaar - PO 25 mg DAILY [facility] Administration Melatonin 10 mg 09/18/19 22:00 09/19/19 21:22 Melatonin PO 10 mg HS OSCAR Administration Mupirocin 1 applic 09/17/19 22:00 09/19/19 21:23 Bactroban Ointment (For Decolonization) - NS 09/22/19 21:59 1 applic BID OSCAR Administration Pantoprazole Sodium 40 mg 09/18/19 10:00 09/19/19 09:50 Protonix - PO 40 mg DAILY OSCAR Administration Impression 1. ESRD 2. HTN 3. cellulitis 4. DM 5. hypothyroidism 6. hx of CVA 7. cholecystectomy Plan -for hd today -dc aluminum hydroxide- [place] -on antibiotics\ MV
[2019-09-20] MEDS: CEFAZOLIN 1 GM in DEXTROSE 5%-WATER - 50 ML IVPB SCH (09:29)
[2019-09-20] MEDS: CARVEDILOL 3.125 MG TABLET (FP) PO SCH ×2 (09:30→21:16)
[2019-09-20] MEDS: HEPARIN NA (PORCINE) 5,000 UNITS/ML 1ML VIAL SQ SCH ×3 (09:30→21:16)
[2019-09-20] MEDS: PANTOPRAZOLE 40 MG TABLET (FP) PO SCH (09:30)
[2019-09-20] MEDS: LOSARTAN POTASSIUM 25 MG TABLET PO SCH (09:30)
[2019-09-20] MEDS: ISOSORBIDE DINITRATE 20 MG TABLET (FP) PO SCH ×2 (09:30→19:01)
[2019-09-20] MEDS: hydrALAZINE HCL 25 MG TABLET (FP) PO SCH ×2 (09:30→21:15)
[2019-09-20] MEDS: MUPIROCIN 2% TOPICAL OINTMENT FOR DECOLONIZATION NS SCH (09:30)
[2019-09-20] MEDS: DONEPEZIL HCL 10 MG TABLET (FP) PO SCH (09:30)
--- NOTE | 2019-09-20 12:21 | PN ---
Progress Note, Physician Chief Complaint: Not in distress History of Present Illness: Patient was seen and examined. Awake and alert. Chart was reviewed Denies chest pain, SOB or palpitations - Current Medication List Current Medications: Active Medications Acetaminophen (Tylenol -) 650 mg PO Q6H PRN PRN Reason: FEVER Last Admin: 09/18/19 22:57 Dose: 650 mg Carvedilol (Coreg -) 3.125 mg PO BID [facility] Last Admin: 09/20/19 09:30 Dose: 3.125 mg Chlorhexidine Gluconate (Hibiclens For Decolonization -) 1 applic TP HS [facility] Last Admin: 09/19/19 21:23 Dose: 1 applic Diphenhydramine HCl (Benadryl -) 25 mg PO HS PRN PRN Reason: INSOMNIA Donepezil HCl (Aricept -) 10 mg PO DAILY [facility] Last Admin: 09/20/19 09:30 Dose: 10 mg Heparin Sodium (Porcine) (Heparin -) 5,000 unit SQ TID [facility] Last Admin: 09/20/19 09:30 Dose: 5,000 unit Hydralazine HCl (Apresoline -) 25 mg PO BID [facility] Last Admin: 09/20/19 09:30 Dose: 25 mg Cefazolin Sodium 1 gm/ (Dextrose) 50 mls @ 100 mls/hr IVPB DAILY [facility] Last Admin: 09/20/19 09:29 Dose: 100 mls/hr Sodium Chloride (Normal Saline -) 250 mls @ 3,000 mls/hr IV PRN PRN PRN Reason: Hypotension during Dialysis Stop: 09/20/19 14:16 Insulin Aspart (Novolog Vial Sliding Scale -) 1 vial SQ HS [facility]; Protocol Last Admin: 09/19/19 21:14 Dose: Not Given Insulin Aspart (Novolog Vial Sliding Scale -) 1 vial SQ TIDAC [facility]; Protocol Last Admin: 09/20/19 11:47 Dose: 2 units Isosorbide Dinitrate (Isordil -) 20 mg PO BIDISORDIL [facility] Last Admin: 09/20/19 09:30 Dose: 20 mg Levothyroxine Sodium (Synthroid -) 125 mcg PO DAILY@0700 [facility] Last Admin: 09/20/19 06:30 Dose: 125 mcg Losartan Potassium (Cozaar -) 25 mg PO DAILY [facility] Last Admin: 09/20/19 09:30 Dose: 25 mg Melatonin (Melatonin) 10 mg PO HS [facility] Last Admin: 09/19/19 21:22 Dose: 10 mg Mupirocin (Bactroban Ointment (For Decolonization) -) 1 applic NS BID [facility] Stop: 09/22/19 21:59 Last Admin: 09/20/19 09:30 Dose: 1 applic Pantoprazole Sodium (Protonix -) 40 mg PO DAILY [facility] Last Admin: 09/20/19 09:30 Dose: 40 mg - Objective Vital Signs: Vital Signs Temperature 97.4 F L 09/20/19 06:50 Pulse Rate 63 09/20/19 10:24 Respiratory Rate 19 09/20/19 10:24 Blood Pressure 146/78 09/20/19 10:24 O2 Sat by Pulse Oximetry (%) 100 09/20/19 09:00 HENT: Yes: Atraumatic Neck: Yes: Supple Cardiovascular: Yes: Regular Rate and Rhythm, S1, S2 Respiratory: Yes: CTA Bilaterally Gastrointestinal: Yes: Normal Bowel Sounds, Soft. No: Tenderness Edema: No Additional Findings/Remarks: - Review of Systems Constitutional: denies: Chills, Fever Cardiovascular: denies Palpitations, Shortness of Breath. denies: Chest Pain Respiratory: denies SOB. denies: Cough, Hemoptysis, PND, Snoring, SOB on Exertion, Wheezing Gastrointestinal: denies Abdominal Pain, denies: Bloating, Diarrhea, Nausea, Vomiting. denies: Constipation, Melena, Rectal Bleeding Genitourinary: denies: Discharge, Hematuria Neurological: denies: Dizziness, Headache, Seizure, Syncope Labs: CBC, BMP 09/20/19 06:55 09/20/19 06:55 Problem List - Problems (1) Biventricular ICD (implantable cardioverter-defibrillator) in place Code(s): Z95.810 - PRESENCE OF AUTOMATIC (IMPLANTABLE) CARDIAC DEFIBRILLATOR (2) Cardiomyopathy Code(s): I42.9 - CARDIOMYOPATHY, UNSPECIFIED Qualifiers: Qualified Code(s): I42.9 - Cardiomyopathy, unspecified (3) Cellulitis of right foot Code(s): L03.115 - CELLULITIS OF RIGHT LOWER LIMB (4) Diabetes Code(s): E11.9 - TYPE 2 DIABETES MELLITUS WITHOUT COMPLICATIONS (5) ESRD (end stage renal disease) Code(s): N18.6 - END STAGE RENAL DISEASE (6) HTN (hypertension) Code(s): I10 - ESSENTIAL (PRIMARY) HYPERTENSION (7) Hypothyroid Code(s): E03.9 - HYPOTHYROIDISM, UNSPECIFIED Qualifiers: Qualified Code(s): E03.9 - Hypothyroidism, unspecified (8) Right foot pain Code(s): M79.671 - PAIN IN RIGHT FOOT (9) Cholelithiasis Code(s): K80.20 - CALCULUS OF GALLBLADDER W/O CHOLECYSTITIS W/O OBSTRUCTION Assessment/Plan 1. Post Laparoscopic cholecystectomy 2. Acute Hypercapneic/Hypoxic Respiratory Failure 3. Acute on chronic systolic heart failure 4. Severe cardiomyopathy s/p WAGE ADJUSTER/ICD 5. HTN 6. ESRD on HD (//) via PC 7. Rt Foot cellulitis, r/o PAD 8. Type 2 DM 9. Hypothyroidism 10. Dementia PLAN: 1. HD and monitor renal function and electrolytes 2. Wound care, antibiotic coverage per ID. 3. Continue Carvedilol 3.125 mg BID and Losartan 25 mg QD with uptitrate as hemodynamics tolerate. Continue Isordil 20 mg BID and Hydralazine 25 mg BID 4. Post op follow up 5. ICD interrogated as outlined May transfer to floor care Olman Pina MD
--- NOTE | 2019-09-20 12:28 | PN ---
Physical Exam: SUBJECTIVE: Patient seen and examined. denies any complaints OBJECTIVE: Vital Signs Period Temp Pulse Resp BP Sys/Palacios Pulse Ox Last 24 Hr 97.4 F-98.2 F 60-84 14-23 116-157/60-93 100-100 GENERAL: The patient is awake, alert, and fully oriented, in no acute distress. NECK: supple. LUNGS: Breath sounds equal, clear to auscultation bilaterally, no wheezes, no crackles, no accessory muscle use. +per[place]ath area clean and dry HEART: Regular rate and rhythm, S1, S2 without murmur ABDOMEN: Soft, nontender, nondistended, normoactive bowel sounds +surgical site clean and dry EXTREMITIES: no cynaosis or edema PSYCH: Normal mood, normal affect. SKIN: Warm, dry Laboratory Results - last 24 hr 09/19/19 09/19/19 09/20/19 16:48 21:11 06:24 WBC RBC Hgb Hct MCV MCH MCHC RDW Plt Count MPV Absolute Neuts (auto) Neutrophils % Lymphocytes % Monocytes % Eosinophils % Basophils % Nucleated RBC % Sodium Potassium Chloride Carbon Dioxide Anion Gap BUN Creatinine Est GFR (CKD-EPI)AfAm Est GFR (CKD-EPI)NonAf POC Glucometer 192 191 177 Random Glucose Calcium Phosphorus Magnesium Total Bilirubin AST ALT Alkaline Phosphatase Total Protein Albumin 09/20/19 09/20/19 09/20/19 06:55 06:55 11:43 WBC 8.5 RBC 4.08 Hgb 12.5 Hct 38.7 MCV 94.9 MCH 30.7 MCHC 32.4 RDW 15.2 Plt Count 200 MPV 8.7 Absolute Neuts (auto) 6.8 Neutrophils % 80.6 Lymphocytes % 12.6 D Monocytes % 5.4 Eosinophils % 0.8 Basophils % 0.6 Nucleated RBC % 0 Sodium 137 Potassium 3.6 Chloride 100 Carbon Dioxide 30 Anion Gap 7 L BUN 42.8 H Creatinine 4.2 H Est GFR (CKD-EPI)AfAm 15.52 Est GFR (CKD-EPI)NonAf 13.39 POC Glucometer 179 Random Glucose 182 H Calcium 7.5 L Phosphorus 4.4 Magnesium 2.1 Total Bilirubin 0.4 AST 26 ALT 7 L Alkaline Phosphatase 138 H Total Protein 5.3 L Albumin 2.0 L Active Medications Generic Name Dose Route Start Last Admin Trade Name Freq PRN Reason Stop Dose Admin Acetaminophen 650 mg 09/17/19 16:52 09/18/19 22:57 Tylenol - PO 650 mg Q6H PRN Administration FEVER Carvedilol 3.125 mg 09/17/19 22:00 09/20/19 09:30 Coreg - PO 3.125 mg BID [facility]AR Administration Chlorhexidine Gluconate 1 applic 09/17/19 22:00 09/19/19 21:23 Hibiclens For Decolonization - TP 1 applic HS [facility] Administration Diphenhydramine HCl 25 mg 09/17/19 16:52 Benadryl - PO HS PRN INSOMNIA Donepezil HCl 10 mg 09/18/19 10:00 09/20/19 09:30 Aricept - PO 10 mg DAILY [facility] Administration Heparin Sodium (Porcine) 5,000 unit 09/20/19 10:00 09/20/19 09:30 Heparin - SQ 5,000 unit TID [facility] Administration Hydralazine HCl 25 mg 09/17/19 22:00 09/20/19 09:30 Apresoline - PO 25 mg BID [facility] Administration Cefazolin Sodium 1 gm/ 50 mls @ 100 mls/hr 09/18/19 10:00 09/20/19 09:29 Dextrose IVPB 100 mls/hr DAILY [facility] Administration Sodium Chloride 250 mls @ 3,000 mls/hr 09/19/19 14:16 Normal Saline - IV 09/20/19 14:16 PRN PRN Hypotension during Dialysis Insulin Aspart 1 vial 09/17/19 22:00 09/19/19 21:14 Novolog Vial Sliding Scale - SQ Not Given HS [facility] Protocol Insulin Aspart 1 vial 09/18/19 13:13 09/20/19 11:47 Novolog Vial Sliding Scale - SQ 2 units TIDAC [facility]AR Administration Protocol Isosorbide Dinitrate 20 mg 09/17/19 18:00 09/20/19 09:30 Isordil - PO 20 mg BIDISORDIL [facility] Administration Levothyroxine Sodium 125 mcg 09/20/19 07:00 09/20/19 06:30 Synthroid - PO 125 mcg DAILY@0700 [facility] Administration Losartan Potassium 25 mg 09/19/19 14:00 09/20/19 09:30 Cozaar - PO 25 mg DAILY [facility] Administration Melatonin 10 mg 09/18/19 22:00 09/19/19 21:22 Melatonin PO 10 mg HS [facility] Administration Mupirocin 1 applic 09/17/19 22:00 09/20/19 09:30 Bactroban Ointment (For Decolonization) - NS 09/22/19 21:59 1 applic BID [facility] Administration Pantoprazole Sodium 40 mg 09/18/19 10:00 09/20/19 09:30 Protonix - PO 40 mg DAILY [facility] Administration ASSESSMENT/PLAN: 69-year-old male with multiple medical problems including ESRD on hemodialysis T /TH/S, systolic CHF initially presented with right foot cellulitis. Noted to have abdominal pain with ultrasound showing cholelithiasis. Status post lap jody on 09/17/2019. Admitted to ICU postop for prolonged intubation for respiratory failure. Currently extubated being transferred to floor. # s/p lap jody for cholelithiasis POD 2 - GI f/u # hypercap/hypox resp failure - extubed - currently on 3 L NC post surgery will titrate down and remove NC # R foot cellulitis - c/w Cefazolin per ID recs # ESRD on HD received HD today monitor electrolytes labs w/ HD #DMII - ISS, AC/HS - seen by endo #c/w rest of chronic home meds for chronic problems - GI PPX: Protonix - DVT PPX: heparinb subq #Disposition transferred to 4W/4S Problem List - Problems (1) Cardiomyopathy Code(s): I42.9 - CARDIOMYOPATHY, UNSPECIFIED Qualifiers: Cardiomyopathy type: unspecified Qualified Code(s): I42.9 - Cardiomyopathy , unspecified (2) Cellulitis of right foot Code(s): L03.115 - CELLULITIS OF RIGHT LOWER LIMB (3) Cholelithiasis Code(s): K80.20 - CALCULUS OF GALLBLADDER W/O CHOLECYSTITIS W/O OBSTRUCTION (4) Diabetes Code(s): E11.9 - TYPE 2 DIABETES MELLITUS WITHOUT COMPLICATIONS Qualifiers: Diabetes mellitus type: type 2 Chronic kidney disease stage: on chronic dialysis (5) ESRD (end stage renal disease) Code(s): N18.6 - END STAGE RENAL DISEASE (6) HTN (hypertension) Code(s): I10 - ESSENTIAL (PRIMARY) HYPERTENSION (7) Hypothyroid Code(s): E03.9 - HYPOTHYROIDISM, UNSPECIFIED Qualifiers: Hypothyroidism type: unspecified Qualified Code(s): E03.9 - Hypothyroidism , unspecified (8) S/P laparoscopic cholecystectomy Code(s): Z90.49 - ACQUIRED ABSENCE OF OTHER SPECIFIED PARTS OF DIGESTIVE TRACT Visit type - Emergency Visit Emergency Visit: Yes ED Registration Date: 09/08/19 Care time: The patient presented to the Emergency Department on the above date and was hospitalized for further evaluation of their emergent condition. - New Patient This patient is new to me today: No - Critical Care Critical Care patient: Yes Total Critical Care Time (in minutes): 30 Critical Care Statement: The care of this patient involved high complexity decision making to prevent further life threatening deterioration of the patient 's condition and/or to evaluate & treat vital organ system(s) failure or risk of failure. - Discharge Referral Referred to [facility] Med P.C.: No
--- NOTE | 2019-09-20 17:17 | PN ---
Progress Note (short form) - Note Progress Note: Pt denies any complaints On renal diet Vital Signs Period Temp Pulse Resp BP Sys/Palacios Pulse Ox Last 24 Hr 97.2 F-98.0 F 60-84 13-23 122-157/60-93 100-100 PE Awake alert Neck: Supple, No JVD Lungs: CTA CVS: s1S2 Abd: mild upper abd discomort Ext: No edema Neuro: No focal deficit CMP Sodium 137 mmol/L (136-145) 09/20/19 06:55 Potassium 3.6 mmol/L (3.5-5.1) 09/20/19 06:55 Chloride 100 mmol/L (98-107) 09/20/19 06:55 Carbon Dioxide 30 mmol/L (21-32) 09/20/19 06:55 Anion Gap 7 MMOL/L (8-16) L 09/20/19 06:55 BUN 42.8 mg/dL (7-18) H 09/20/19 06:55 Creatinine 4.2 mg/dL (0.55-1.3) H 09/20/19 06:55 Est GFR (CKD-EPI)AfAm 15.52 09/20/19 06:55 Est GFR (CKD-EPI)NonAf 13.39 09/20/19 06:55 POC Glucometer 278 UNITS (80-120) 09/20/19 16:54 Random Glucose 182 mg/dL (74-106) H 09/20/19 06:55 Hemoglobin A1c % 7.2 % (4.2-6.3) H 09/09/19 15:00 Calcium 7.5 mg/dL (8.5-10.1) L 09/20/19 06:55 Phosphorus 4.4 mg/dL (2.5-4.9) 09/20/19 06:55 Magnesium 2.1 mg/dL (1.8-2.4) 09/20/19 06:55 Total Bilirubin 0.4 mg/dL (0.2-1) 09/20/19 06:55 AST 26 U/L (15-37) 09/20/19 06:55 ALT 7 U/L (13-61) L 09/20/19 06:55 Alkaline Phosphatase 138 U/L (45-117) H 09/20/19 06:55 Ammonia 14.40 umol/L (11-32) 09/19/19 06:30 Creatine Kinase 143 U/L (26-308) 09/10/19 20:45 Creatine Kinase Index 1.3 % (0.0-5.0) 09/08/19 12:55 CK-MB (CK-2) 5.0 ng/mL (0.5-3.6) H 09/08/19 12:55 Troponin I 0.17 ng/ml (0.00-0.05) H 09/11/19 16:13 Total Protein 5.3 g/dl (6.4-8.2) L 09/20/19 06:55 Albumin 2.0 g/dl (3.4-5.0) L 09/20/19 06:55 Triglycerides 120 mg/dL (0-150) 09/09/19 04:26 Cholesterol 94 mg/dL (50-200) 09/09/19 04:26 Total LDL Cholesterol 45 mg/dL (5-100) 09/09/19 04:26 HDL Cholesterol 37 mg/dL (40-60) L 09/09/19 04:26 TSH 3.73 uIU/ml (0.358-3.74) 09/09/19 04:26 Current Medications Generic Name Dose Route Start Last Admin Trade Name Freq PRN Reason Stop Dose Admin Acetaminophen 650 mg 09/17/19 16:52 09/18/19 22:57 Tylenol - PO 650 mg Q6H PRN Administration FEVER Carvedilol 3.125 mg 09/17/19 22:00 09/20/19 09:30 Coreg - PO 3.125 mg BID OSCAR Administration Chlorhexidine Gluconate 1 applic 09/17/19 22:00 09/19/19 21:23 Hibiclens For Decolonization - TP 1 applic HS [facility] Administration Diphenhydramine HCl 25 mg 09/17/19 16:52 Benadryl - PO HS PRN INSOMNIA Donepezil HCl 10 mg 09/18/19 10:00 09/20/19 09:30 Aricept - PO 10 mg DAILY [facility] Administration Heparin Sodium (Porcine) 5,000 unit 09/20/19 10:00 09/20/19 14:00 Heparin - SQ 5,000 unit TID [facility]AR Administration Hydralazine HCl 25 mg 09/17/19 22:00 09/20/19 09:30 Apresoline - PO 25 mg BID [facility] Administration Cefazolin Sodium 1 gm/ 50 mls @ 100 mls/hr 09/18/19 10:00 09/20/19 09:29 Dextrose IVPB 100 mls/hr DAILY [facility] Administration Sodium Chloride 250 mls @ 3,000 mls/hr 09/19/19 14:16 Normal Saline - IV 09/20/19 14:16 PRN PRN Hypotension during Dialysis Insulin Aspart 1 vial 09/17/19 22:00 09/19/19 21:14 Novolog Vial Sliding Scale - SQ Not Given HS [facility] Protocol Insulin Aspart 1 vial 09/18/19 13:13 09/20/19 17:02 Novolog Vial Sliding Scale - SQ 4 units TIDAC OSCAR Administration Protocol Isosorbide Dinitrate 20 mg 09/17/19 18:00 09/20/19 09:30 Isordil - PO 20 mg BIDISORDIL [facility]AR Administration Levothyroxine Sodium 125 mcg 09/20/19 07:00 09/20/19 06:30 Synthroid - PO 125 mcg DAILY@0700 [facility] Administration Losartan Potassium 25 mg 09/19/19 14:00 09/20/19 09:30 Cozaar - PO 25 mg DAILY [facility] Administration Melatonin 10 mg 09/18/19 22:00 09/19/19 21:22 Melatonin PO 10 mg HS [facility]AR Administration Mupirocin 1 applic 09/17/19 22:00 09/20/19 09:30 Bactroban Ointment (For Decolonization) - NS 09/22/19 21:59 1 applic BID O[facility]AR Administration Pantoprazole Sodium 40 mg 09/18/19 10:00 09/20/19 09:30 Protonix - PO 40 mg DAILY OSCAR Administration AP: S/P Respiratory failure Cholecystitis Rt Foot cellulitis T2DM Hypothyroidism ESRD Off Glimepiride b/o increase risk of hypoglycemia with long acting Sulfonylurea in pt on HD. BGM Q ACHS. To give 100 KCal snack when FS <100 or D50 if FS <60 Restart Levemir 3 units daily at HS. Hold when FS <140 Novolog SS coverage premeals and HS Abx as per ID Will f/u
[2019-09-20] MEDS ORDERED: SODIUM CHLORIDE 250 ML IV PRN (17:29)
[2019-09-20] MEDS ORDERED: diphenhydrAMINE HCL 25 MG CAPSULE (FP) PO PRN (17:29)
[2019-09-20] MEDS ORDERED: INSULIN (NOVOLOG) ASPART 100 UNITS/ML 10ML VIAL ONE (18:59)
[2019-09-20] MEDS: MELATONIN 5 MG TABLETS PO SCH (21:16)
[2019-09-20] MEDS: INSULIN (LEVEMIR) 100 UNITS/ML UNITS SQ SCH (21:16)
[2019-09-20] MEDS ORDERED: MUPIROCIN 2% TOPICAL OINTMENT FOR DECOLONIZATION NS SCH (22:00)
[2019-09-20] MEDS ORDERED: CHLORHEXIDINE GLUCONATE 4% CLEANSER FOR DECOLONIZATION TP SCH (22:00)
[2019-09-21] MEDS: HEPARIN NA (PORCINE) 5,000 UNITS/ML 1ML VIAL SQ SCH ×3 (06:22→21:49)
[2019-09-21] MEDS: LEVOTHYROXINE NA 125 MCG TABLET (FP) PO SCH (06:22)
[2019-09-21] MEDS: INSULIN SLIDING SCALE (NOVOLOG) 1 VIAL SQ SCH ×4 (06:23→21:50)
[2019-09-21 07:52] LABS: EOS % 0.9 % (0-4.5); HEMATOCRIT 39.1 % (35.4-49); HEMOGLOBIN 12.7 GM/dL (11.7-16.9); LYMPH % 16.3 % (8-40); MCH 30.3 pg (25.7-33.7); MCHC 32.5 g/dl (32.0-35.9); MEAN CELL VOLUME 93.2 fl (80-96); MEAN PLT VOLUME 8.7 fl (7.5-11.1); MONO % 4.7 % (3.8-10.2); NEUT % 77.1 % (42.8-82.8); PLATELET COUNT 198 K/MM3 (134-434); RBC 4.19 M/mm3 (4.00-5.60); RDW 14.8 % (11.9-15.9); WHITE BLOOD COUNT 7.4 K/mm3 (4.0-10.0)
[2019-09-21 08:00] LABS: BILIRUBIN,TOTAL 0.4 mg/dL (0.2-1); BLOOD UREA NITROGEN 30.7 mg/dL (7-18); CALCIUM 7.6 mg/dL (8.5-10.1); CREATININE 3.4 mg/dL (0.55-1.3); PHOSPHOROUS 2.4 mg/dL (2.5-4.9); POTASSIUM 3.7 mmol/L (3.5-5.1); TOT PROT 5.4 g/dl (6.4-8.2)
[2019-09-21] MEDS ORDERED: ceFAZolin SODIUM 1 GM VIAL ONE (10:15)
[2019-09-21] MEDS ORDERED: PT OWN MED DRAWER 7, Y5N ONE (10:15)
[2019-09-21] MEDS ORDERED: DEXTROSE 5%-WATER - 50 ML IVPB ONE (10:16)
[2019-09-21] MEDS: PANTOPRAZOLE 40 MG TABLET (FP) PO SCH (10:17)
[2019-09-21] MEDS: hydrALAZINE HCL 25 MG TABLET (FP) PO SCH ×2 (10:17→21:48)
[2019-09-21] MEDS: CARVEDILOL 3.125 MG TABLET (FP) PO SCH ×2 (10:17→21:48)
[2019-09-21] MEDS: DONEPEZIL HCL 10 MG TABLET (FP) PO SCH (10:17)
[2019-09-21] MEDS: LOSARTAN POTASSIUM 25 MG TABLET PO SCH (10:17)
[2019-09-21] MEDS: CEFAZOLIN 1 GM in DEXTROSE 5%-WATER - 50 ML IVPB SCH (10:17)
[2019-09-21] MEDS: ISOSORBIDE DINITRATE 20 MG TABLET (FP) PO SCH ×2 (10:17→17:12)
--- NOTE | 2019-09-21 11:51 | PN ---
Progress Note (short form) - Note Progress Note: RENAL Pt is awake and alert c/o heel pain Last Vital Signs Temp Pulse Resp BP Pulse Ox 97.4 F L 60 22 H 147/60 100 09/20/19 06:50 09/20/19 08:25 09/20/19 08:25 09/20/19 08:25 09/19/19 20:01 AICD palpable on left chest lungs clear cvs s1s2 rr abd soft ext no edema, has a heel ulcer neuro a+ox3 CBC, BMP 09/21/19 06:40 09/21/19 06:40 Current Medications Generic Name Dose Route Start Last Admin Trade Name Freq PRN Reason Stop Dose Admin Acetaminophen 650 mg 09/20/19 17:29 Tylenol - PO Q6H PRN FEVER Carvedilol 3.125 mg 09/20/19 22:00 09/21/19 10:17 Coreg - PO 3.125 mg BID OSCAR Administration Diphenhydramine HCl 25 mg 09/20/19 17:29 Benadryl - PO HS PRN INSOMNIA Donepezil HCl 10 mg 09/21/19 10:00 09/21/19 10:17 Aricept - PO 10 mg DAILY [facility] Administration Heparin Sodium (Porcine) 5,000 unit 09/20/19 22:00 09/21/19 06:22 Heparin - SQ 5,000 unit TID OSCAR Administration Hydralazine HCl 25 mg 09/20/19 22:00 09/21/19 10:17 Apresoline - PO 25 mg BID O[facility]AR Administration Cefazolin Sodium 1 gm/ 50 mls @ 100 mls/hr 09/21/19 10:00 09/21/19 10:17 Dextrose IVPB 100 mls/hr DAILY [facility] Administration Sodium Chloride 250 mls @ 3,000 mls/hr 09/20/19 17:29 Normal Saline - IV PRN PRN Hypotension during Dialysis Insulin Aspart 1 vial 09/20/19 22:00 09/20/19 21:17 Novolog Vial Sliding Scale - SQ Not Given HS [facility] Protocol Insulin Aspart 1 vial 09/21/19 07:00 09/21/19 06:23 Novolog Vial Sliding Scale - SQ 2 units TIDAC [facility]AR Administration Protocol Insulin Detemir 3 units 09/20/19 22:00 09/20/19 21:16 Levemir Vial SQ 3 units HS [facility] Administration Isosorbide Dinitrate 20 mg 09/20/19 18:00 09/21/19 10:17 Isordil - PO 20 mg BIDISORDIL [facility]AR Administration Levothyroxine Sodium 125 mcg 09/21/19 07:00 09/21/19 06:22 Synthroid - PO 125 mcg DAILY@0700 [facility] Administration Losartan Potassium 25 mg 09/21/19 10:00 09/21/19 10:17 Cozaar - PO 25 mg DAILY [facility] Administration Melatonin 10 mg 09/20/19 22:00 09/20/19 21:16 Melatonin PO 10 mg HS [facility] Administration Pantoprazole Sodium 40 mg 09/21/19 10:00 09/21/19 10:17 Protonix - PO 40 mg DAILY [facility]AR Administration Impression 1. ESRD 2. HTN 3. cellulitis 4. DM 5. hypothyroidism 6. hx of CVA 7. cholecystectomy Plan -re hemodialyze in 2 days -vasc eval of heel ulcer -on antibiotics -analgesics MV MV
[2019-09-21] MEDS ORDERED: INSULIN (NOVOLOG) ASPART 100 UNITS/ML 10ML VIAL ONE ×3 (11:54→21:32)
[2019-09-21] MEDS: ACETAMINOPHEN 325 MG TABLET (FP) PO PRN (12:14)
--- NOTE | 2019-09-21 14:08 | PN ---
Physical Exam: SUBJECTIVE: Patient seen and examined. denies any complaints OBJECTIVE: Vital Signs Period Temp Pulse Resp BP Sys/Palacios Pulse Ox Last 24 Hr 97.5 F-98.8 F 68-98 18-20 115-154/61-93 98-100 GENERAL: The patient is awake, alert, and fully oriented, in no acute distress. NECK: supple. LUNGS: Breath sounds equal, clear to auscultation bilaterally, no wheezes, no crackles, no accessory muscle use. +[place] area clean and dry HEART: Regular rate and rhythm, S1, S2 without murmur ABDOMEN: Soft, nontender, nondistended, normoactive bowel sounds +surgical site clean and dry EXTREMITIES: no cynaosis or edema + R heel ulcer PSYCH: Normal mood, normal affect. SKIN: + R foot heel ulcer erythematous and dry no discharge Laboratory Results - last 24 hr 09/20/19 09/20/19 09/21/19 16:54 21:13 06:21 WBC RBC Hgb Hct MCV MCH MCHC RDW Plt Count MPV Absolute Neuts (auto) Neutrophils % Lymphocytes % Monocytes % Eosinophils % Basophils % Nucleated RBC % Sodium Potassium Chloride Carbon Dioxide Anion Gap BUN Creatinine Est GFR (CKD-EPI)AfAm Est GFR (CKD-EPI)NonAf POC Glucometer 278 236 183 Random Glucose Calcium Phosphorus Magnesium Total Bilirubin AST ALT Alkaline Phosphatase Total Protein Albumin 09/21/19 09/21/19 09/21/19 06:40 06:40 11:35 WBC 7.4 RBC 4.19 Hgb 12.7 Hct 39.1 MCV 93.2 MCH 30.3 MCHC 32.5 RDW 14.8 Plt Count 198 MPV 8.7 Absolute Neuts (auto) 5.7 Neutrophils % 77.1 Lymphocytes % 16.3 D Monocytes % 4.7 Eosinophils % 0.9 Basophils % 1.0 Nucleated RBC % 0 Sodium 138 Potassium 3.7 Chloride 101 Carbon Dioxide 30 Anion Gap 7 L BUN 30.7 H Creatinine 3.4 H Est GFR (CKD-EPI)AfAm 20.04 Est GFR (CKD-EPI)NonAf 17.29 POC Glucometer 177 Random Glucose 169 H Calcium 7.6 L Phosphorus 2.4 L Magnesium 2.0 Total Bilirubin 0.4 AST 28 ALT 6 L Alkaline Phosphatase 132 H Total Protein 5.4 L Albumin 2.0 L Active Medications Generic Name Dose Route Start Last Admin Trade Name Freq PRN Reason Stop Dose Admin Acetaminophen 650 mg 09/20/19 17:29 09/21/19 12:14 Tylenol - PO 650 mg Q6H PRN Administration FEVER Carvedilol 3.125 mg 09/20/19 22:00 09/21/19 10:17 Coreg - PO 3.125 mg BID [facility] Administration Diphenhydramine HCl 25 mg 09/20/19 17:29 Benadryl - PO HS PRN INSOMNIA Donepezil HCl 10 mg 09/21/19 10:00 09/21/19 10:17 Aricept - PO 10 mg DAILY [facility] Administration Heparin Sodium (Porcine) 5,000 unit 09/20/19 22:00 09/21/19 06:22 Heparin - SQ 5,000 unit TID [facility] Administration Hydralazine HCl 25 mg 09/20/19 22:00 09/21/19 10:17 Apresoline - PO 25 mg BID [facility] Administration Cefazolin Sodium 1 gm/ 50 mls @ 100 mls/hr 09/21/19 10:00 09/21/19 10:17 Dextrose IVPB 100 mls/hr DAILY [facility] Administration Sodium Chloride 250 mls @ 3,000 mls/hr 09/20/19 17:29 Normal Saline - IV PRN PRN Hypotension during Dialysis Insulin Aspart 1 vial 09/20/19 22:00 09/20/19 21:17 Novolog Vial Sliding Scale - SQ Not Given HS [facility] Protocol Insulin Aspart 1 vial 09/21/19 07:00 09/21/19 11:56 Novolog Vial Sliding Scale - SQ 2 units TIDAC [facility] Administration Protocol Insulin Detemir 3 units 09/20/19 22:00 09/20/19 21:16 Levemir Vial SQ 3 units HS [facility] Administration Isosorbide Dinitrate 20 mg 09/20/19 18:00 09/21/19 10:17 Isordil - PO 20 mg BIDISORDIL [facility] Administration Levothyroxine Sodium 125 mcg 09/21/19 07:00 09/21/19 06:22 Synthroid - PO 125 mcg DAILY@0700 [facility] Administration Losartan Potassium 25 mg 09/21/19 10:00 09/21/19 10:17 Cozaar - PO 25 mg DAILY [facility] Administration Melatonin 10 mg 09/20/19 22:00 09/20/19 21:16 Melatonin PO 10 mg HS [facility] Administration Pantoprazole Sodium 40 mg 09/21/19 10:00 09/21/19 10:17 Protonix - PO 40 mg DAILY [facility] Administration ASSESSMENT/PLAN: 69-year-old male with multiple medical problems including ESRD on hemodialysis T //S, systolic CHF initially presented with right foot cellulitis. Noted to have abdominal pain with ultrasound showing cholelithiasis. Status post lap jody on 09/17/2019. Admitted to ICU postop for prolonged intubation for respiratory failure. Now transferred to floor for further management. # s/p lap jody for cholelithiasis POD 3 - GI following # hypercap/hypox resp failure - weaned off NC now on RA - monitor oxygenation - volume status improved post HD # R foot heel ulcer - c/w Cefazolin per ID recs and switch to po keflex on d/c - Vascular eval of heel ulcer as per ID recs- consult placed # ESRD on HD TThSat received HD yesterday monitor electrolytes labs w/ HD #HTN - c/w home meds - followed by cardiology. ICD interrogated as outlined. #DMII - ISS, AC/HS - followed by endo #c/w rest of chronic home meds for chronic problems - GI PPX: Protonix - DVT PPX: heparinb subq Problem List - Problems (1) Cardiomyopathy Code(s): I42.9 - CARDIOMYOPATHY, UNSPECIFIED Qualifiers: Cardiomyopathy type: unspecified Qualified Code(s): I42.9 - Cardiomyopathy , unspecified (2) Cellulitis of right foot Code(s): L03.115 - CELLULITIS OF RIGHT LOWER LIMB (3) Cholelithiasis Code(s): K80.20 - CALCULUS OF GALLBLADDER W/O CHOLECYSTITIS W/O OBSTRUCTION (4) Diabetes Code(s): E11.9 - TYPE 2 DIABETES MELLITUS WITHOUT COMPLICATIONS Qualifiers: Diabetes mellitus type: type 2 Chronic kidney disease stage: on chronic dialysis (5) ESRD (end stage renal disease) Code(s): N18.6 - END STAGE RENAL DISEASE (6) HTN (hypertension) Code(s): I10 - ESSENTIAL (PRIMARY) HYPERTENSION (7) Hypothyroid Code(s): E03.9 - HYPOTHYROIDISM, UNSPECIFIED Qualifiers: Hypothyroidism type: unspecified Qualified Code(s): E03.9 - Hypothyroidism , unspecified (8) S/P laparoscopic cholecystectomy Code(s): Z90.49 - ACQUIRED ABSENCE OF OTHER SPECIFIED PARTS OF DIGESTIVE TRACT Visit type - Emergency Visit Emergency Visit: Yes ED Registration Date: 09/08/19 Care time: The patient presented to the Emergency Department on the above date and was hospitalized for further evaluation of their emergent condition. - New Patient This patient is new to me today: No - Critical Care Critical Care patient: No - Discharge Referral Referred to [facility] Med P.C.: No
[2019-09-21] MEDS: MELATONIN 5 MG TABLETS PO SCH (21:49)
[2019-09-21] MEDS: INSULIN (LEVEMIR) 100 UNITS/ML UNITS SQ SCH (21:49)
[2019-09-22] MEDS: INSULIN SLIDING SCALE (NOVOLOG) 1 VIAL SQ SCH ×4 (06:43→21:34)
[2019-09-22] MEDS: HEPARIN NA (PORCINE) 5,000 UNITS/ML 1ML VIAL SQ SCH ×3 (06:43→21:34)
[2019-09-22] MEDS: LEVOTHYROXINE NA 125 MCG TABLET (FP) PO SCH (06:43)
[2019-09-22] MEDS ORDERED: DEXTROSE 5%-WATER - 50 ML IVPB ONE (09:32)
[2019-09-22] MEDS ORDERED: ceFAZolin SODIUM 1 GM VIAL ONE (09:32)
[2019-09-22] MEDS: CEFAZOLIN 1 GM in DEXTROSE 5%-WATER - 50 ML IVPB SCH (09:39)
[2019-09-22] MEDS: CARVEDILOL 3.125 MG TABLET (FP) PO SCH (09:40)
[2019-09-22] MEDS: ISOSORBIDE DINITRATE 20 MG TABLET (FP) PO SCH ×2 (09:40→17:27)
[2019-09-22] MEDS: PANTOPRAZOLE 40 MG TABLET (FP) PO SCH (09:40)
[2019-09-22] MEDS: hydrALAZINE HCL 25 MG TABLET (FP) PO SCH ×2 (09:40→21:34)
[2019-09-22] MEDS: LOSARTAN POTASSIUM 25 MG TABLET PO SCH (09:40)
[2019-09-22] MEDS: DONEPEZIL HCL 10 MG TABLET (FP) PO SCH (09:40)
--- NOTE | 2019-09-22 11:36 | PN ---
Progress Note, Physician History of Present Illness: Denies complaints, Vik Sci CHAIN OFFBEARER-D interrogated, normal function. - Current Medication List Current Medications: Active Medications Acetaminophen (Tylenol -) 650 mg PO Q6H PRN PRN Reason: FEVER Last Admin: 09/21/19 12:14 Dose: 650 mg Carvedilol (Coreg -) 3.125 mg PO BID [facility] Last Admin: 09/22/19 09:40 Dose: 3.125 mg Diphenhydramine HCl (Benadryl -) 25 mg PO HS PRN PRN Reason: INSOMNIA Donepezil HCl (Aricept -) 10 mg PO DAILY [facility] Last Admin: 09/22/19 09:40 Dose: 10 mg Heparin Sodium (Porcine) (Heparin -) 5,000 unit SQ TID [facility] Last Admin: 09/22/19 06:43 Dose: 5,000 unit Hydralazine HCl (Apresoline -) 25 mg PO BID [facility] Last Admin: 09/22/19 09:40 Dose: 25 mg Cefazolin Sodium 1 gm/ (Dextrose) 50 mls @ 100 mls/hr IVPB DAILY [facility] Last Admin: 09/22/19 09:39 Dose: 100 mls/hr Sodium Chloride (Normal Saline -) 250 mls @ 3,000 mls/hr IV PRN PRN PRN Reason: Hypotension during Dialysis Insulin Aspart (Novolog Vial Sliding Scale -) 1 vial SQ HS [facility]; Protocol Last Admin: 09/21/19 21:50 Dose: Not Given Insulin Aspart (Novolog Vial Sliding Scale -) 1 vial SQ TIDAC [facility]; Protocol Last Admin: 09/22/19 11:18 Dose: 3 units Insulin Detemir (Levemir Vial) 3 units SQ HS [facility] Last Admin: 09/21/19 21:49 Dose: 3 units Isosorbide Dinitrate (Isordil -) 20 mg PO BIDISORDIL [facility] Last Admin: 09/22/19 09:40 Dose: 20 mg Levothyroxine Sodium (Synthroid -) 125 mcg PO DAILY@0700 [facility] Last Admin: 09/22/19 06:43 Dose: 125 mcg Losartan Potassium (Cozaar -) 25 mg PO DAILY [facility] Last Admin: 09/22/19 09:40 Dose: 25 mg Melatonin (Melatonin) 10 mg PO HS [facility] Last Admin: 09/21/19 21:49 Dose: 10 mg Pantoprazole Sodium (Protonix -) 40 mg PO DAILY [facility] Last Admin: 09/22/19 09:40 Dose: 40 mg - Objective Vital Signs: Vital Signs Temperature 97.8 F 09/22/19 10:00 Pulse Rate 102 H 09/22/19 10:00 Respiratory Rate 20 09/22/19 10:00 Blood Pressure 156/81 09/22/19 10:00 O2 Sat by Pulse Oximetry (%) 92 L 09/22/19 09:00 Constitutional: Yes: No Distress, Calm, Thin Neck: Yes: Supple Cardiovascular: Yes: Regular Rate and Rhythm Respiratory: Yes: Regular, CTA Bilaterally Gastrointestinal: Yes: Normal Bowel Sounds, Soft Edema: No Labs: CBC, BMP 09/21/19 06:40 09/21/19 06:40 INR, PTT INR 1.08 (0.83-1.09) 09/08/19 13:33 Problem List - Problems (1) Biventricular ICD (implantable cardioverter-defibrillator) in place Code(s): Z95.810 - PRESENCE OF AUTOMATIC (IMPLANTABLE) CARDIAC DEFIBRILLATOR (2) Cellulitis of right foot Code(s): L03.115 - CELLULITIS OF RIGHT LOWER LIMB (3) Diabetes Code(s): E11.9 - TYPE 2 DIABETES MELLITUS WITHOUT COMPLICATIONS Qualifiers: Diabetes mellitus type: type 2 Chronic kidney disease stage: on chronic dialysis (4) ESRD (end stage renal disease) Code(s): N18.6 - END STAGE RENAL DISEASE (5) HTN (hypertension) Code(s): I10 - ESSENTIAL (PRIMARY) HYPERTENSION (6) Hypothyroid Code(s): E03.9 - HYPOTHYROIDISM, UNSPECIFIED Qualifiers: Hypothyroidism type: unspecified Qualified Code(s): E03.9 - Hypothyroidism , unspecified (7) Cardiomyopathy Code(s): I42.9 - CARDIOMYOPATHY, UNSPECIFIED Qualifiers: Cardiomyopathy type: unspecified Qualified Code(s): I42.9 - Cardiomyopathy , unspecified Assessment/Plan 09/19/2019 Vik Sci [employer]AIN OFFBE[employer]ER-D interrogated, 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 08/2019 10 beat run of NSVT self- terminated w/o therapy. 09/12/2019 Moderate dilated with severely decreased LVEF 20-25%, preserved wall motion at base, rest of segments severely HK, mod-severe MR, mild TR, pacemaker RV, mild-mod AR, mild ao dilatation 4.1 cm 1. POD #5 Lap cholecystectomy 2. Acute Hypercapneic/Hypoxic Respiratory Failure, Resolving 3. Acute on chronic systolic heart failure 4. Severe cardiomyopathy s/p CHAIN OFFBEARER/ICD 5. HTN heart disease 6. ESRD on HD (T//S) via PC 7. Rt Foot cellulitis, r/o PAD 8. Type 2 DM Ha1c 7.2% 9. Hypothyroidism 10. Dementia 11. H/o stroke PLAN: 1. HD and monitor renal function and electrolytes 2. Wound care, antibiotic coverage per ID. 3. Increase Carvedilol 6.25 mg BID and Losartan 25 mg QD with uptitrate as hemodynamics tolerate. Continue Isordil 20 mg BID and Hydralazine 25 mg BID 4. Post op follow up 5. ICD interrogated as outlined
--- NOTE | 2019-09-22 13:34 | PN ---
Progress Note (short form) - Note Progress Note: IN bed in NAD Denies any complaints Vital Signs Period Temp Pulse Resp BP Sys/Palacios Pulse Ox Last 24 Hr 97.7 F-98.4 F 79-102 20-20 133-156/81-95 92-98 PE Awake alert Neck: Supple, No JVD Lungs: CTA CVS: s1S2 Abd: Sofr NT Ext: No edema Neuro: No focal deficit CMP Sodium 138 mmol/L (136-145) 09/21/19 06:40 Potassium 3.7 mmol/L (3.5-5.1) 09/21/19 06:40 Chloride 101 mmol/L (98-107) 09/21/19 06:40 Carbon Dioxide 30 mmol/L (21-32) 09/21/19 06:40 Anion Gap 7 MMOL/L (8-16) L 09/21/19 06:40 BUN 30.7 mg/dL (7-18) H 09/21/19 06:40 Creatinine 3.4 mg/dL (0.55-1.3) H 09/21/19 06:40 Est GFR (CKD-EPI)AfAm 20.04 09/21/19 06:40 Est GFR (CKD-EPI)NonAf 17.29 09/21/19 06:40 POC Glucometer 226 UNITS (80-120) 09/22/19 11:10 Random Glucose 169 mg/dL (74-106) H 09/21/19 06:40 Hemoglobin A1c % 7.2 % (4.2-6.3) H 09/09/19 15:00 Calcium 7.6 mg/dL (8.5-10.1) L 09/21/19 06:40 Phosphorus 2.4 mg/dL (2.5-4.9) L 09/21/19 06:40 Magnesium 2.0 mg/dL (1.8-2.4) 09/21/19 06:40 Total Bilirubin 0.4 mg/dL (0.2-1) 09/21/19 06:40 AST 28 U/L (15-37) 09/21/19 06:40 ALT 6 U/L (13-61) L 09/21/19 06:40 Alkaline Phosphatase 132 U/L (45-117) H 09/21/19 06:40 Ammonia 14.40 umol/L (11-32) 09/19/19 06:30 Creatine Kinase 143 U/L (26-308) 09/10/19 20:45 Creatine Kinase Index 1.3 % (0.0-5.0) 09/08/19 12:55 CK-MB (CK-2) 5.0 ng/mL (0.5-3.6) H 09/08/19 12:55 Troponin I 0.17 ng/ml (0.00-0.05) H 09/11/19 16:13 Total Protein 5.4 g/dl (6.4-8.2) L 09/21/19 06:40 Albumin 2.0 g/dl (3.4-5.0) L 09/21/19 06:40 Triglycerides 120 mg/dL (0-150) 09/09/19 04:26 Cholesterol 94 mg/dL (50-200) 09/09/19 04:26 Total LDL Cholesterol 45 mg/dL (5-100) 09/09/19 04:26 HDL Cholesterol 37 mg/dL (40-60) L 09/09/19 04:26 TSH 3.73 uIU/ml (0.358-3.74) 09/09/19 04:26 Current Medications Generic Name Dose Route Start Last Admin Trade Name Freq PRN Reason Stop Dose Admin Acetaminophen 650 mg 09/20/19 17:29 09/21/19 12:14 Tylenol - PO 650 mg Q6H PRN Administration FEVER Carvedilol 6.25 mg 09/22/19 11:50 Coreg - PO BID [facility] Diphenhydramine HCl 25 mg 09/20/19 17:29 Benadryl - PO HS PRN INSOMNIA Donepezil HCl 10 mg 09/21/19 10:00 09/22/19 09:40 Aricept - PO 10 mg DAILY [facility] Administration Heparin Sodium (Porcine) 5,000 unit 09/20/19 22:00 09/22/19 06:43 Heparin - SQ 5,000 unit TID [facility] Administration Hydralazine HCl 25 mg 09/20/19 22:00 09/22/19 09:40 Apresoline - PO 25 mg BID [facility] Administration Cefazolin Sodium 1 gm/ 50 mls @ 100 mls/hr 09/21/19 10:00 09/22/19 09:39 Dextrose IVPB 100 mls/hr DAILY [facility] Administration Sodium Chloride 250 mls @ 3,000 mls/hr 09/20/19 17:29 Normal Saline - IV PRN PRN Hypotension during Dialysis Insulin Aspart 1 vial 09/20/19 22:00 09/21/19 21:50 Novolog Vial Sliding Scale - SQ Not Given HS [facility] Protocol Insulin Aspart 1 vial 09/21/19 07:00 09/22/19 11:18 Novolog Vial Sliding Scale - SQ 3 units TIDAC [facility] Administration Protocol Insulin Detemir 3 units 09/20/19 22:00 09/21/19 21:49 Levemir Vial SQ 3 units HS [facility] Administration Isosorbide Dinitrate 20 mg 09/20/19 18:00 09/22/19 09:40 Isordil - PO 20 mg BIDISORDIL [facility] Administration Levothyroxine Sodium 125 mcg 09/21/19 07:00 09/22/19 06:43 Synthroid - PO 125 mcg DAILY@0700 [facility] Administration Losartan Potassium 25 mg 09/21/19 10:00 09/22/19 09:40 Cozaar - PO 25 mg DAILY [facility] Administration Melatonin 10 mg 09/20/19 22:00 09/21/19 21:49 Melatonin PO 10 mg HS [facility] Administration Pantoprazole Sodium 40 mg 09/21/19 10:00 09/22/19 09:40 Protonix - PO 40 mg DAILY [facility] Administration AP: S/P Respiratory failure Cholecystitis Rt Foot cellulitis T2DM Hypothyroidism ESRD Off Glimepiride b/o increase risk of hypoglycemia with long acting Sulfonylurea in pt on HD. BGM Q ACHS. To give 100 KCal snack when FS <100 or D50 if FS <60 INcrease Levemir 4 units daily at HS. Hold when FS <140 Novolog SS coverage premeals and HS Abx as per ID Will f/u
[2019-09-22] MEDS ORDERED: SODIUM CHLORIDE 250 ML IV PRN (14:05)
--- NOTE | 2019-09-22 14:05 | PN ---
Progress Note, Physician History of Present Illness: Pt seen and examined at bedside. He is awake and alert. He denies shortness of breath. - Current Medication List Current Medications: Active Medications Acetaminophen (Tylenol -) 650 mg PO Q6H PRN PRN Reason: FEVER Last Admin: 09/21/19 12:14 Dose: 650 mg Carvedilol (Coreg -) 6.25 mg PO BID [facility] Diphenhydramine HCl (Benadryl -) 25 mg PO HS PRN PRN Reason: INSOMNIA Donepezil HCl (Aricept -) 10 mg PO DAILY [facility] Last Admin: 09/22/19 09:40 Dose: 10 mg Heparin Sodium (Porcine) (Heparin -) 5,000 unit SQ TID [facility] Last Admin: 09/22/19 06:43 Dose: 5,000 unit Hydralazine HCl (Apresoline -) 25 mg PO BID [facility] Last Admin: 09/22/19 09:40 Dose: 25 mg Cefazolin Sodium 1 gm/ (Dextrose) 50 mls @ 100 mls/hr IVPB DAILY [facility] Last Admin: 09/22/19 09:39 Dose: 100 mls/hr Sodium Chloride (Normal Saline -) 250 mls @ 3,000 mls/hr IV PRN PRN PRN Reason: Hypotension during Dialysis Insulin Aspart (Novolog Vial Sliding Scale -) 1 vial SQ HS [facility]; Protocol Last Admin: 09/21/19 21:50 Dose: Not Given Insulin Aspart (Novolog Vial Sliding Scale -) 1 vial SQ TIDAC [facility]; Protocol Last Admin: 09/22/19 11:18 Dose: 3 units Insulin Detemir (Levemir Vial) 4 units SQ [facility] Isosorbide Dinitrate (Isordil -) 20 mg PO BIDISORDIL [facility] Last Admin: 09/22/19 09:40 Dose: 20 mg Levothyroxine Sodium (Synthroid -) 125 mcg PO DAILY@0700 [facility] Last Admin: 09/22/19 06:43 Dose: 125 mcg Losartan Potassium (Cozaar -) 25 mg PO DAILY [facility] Last Admin: 09/22/19 09:40 Dose: 25 mg Melatonin (Melatonin) 10 mg PO HS [facility] Last Admin: 09/21/19 21:49 Dose: 10 mg Pantoprazole Sodium (Protonix -) 40 mg PO DAILY [facility] Last Admin: 09/22/19 09:40 Dose: 40 mg - Objective Vital Signs: Vital Signs Temperature 97.8 F 09/22/19 10:00 Pulse Rate 102 H 09/22/19 10:00 Respiratory Rate 20 09/22/19 10:00 Blood Pressure 156/81 09/22/19 10:00 O2 Sat by Pulse Oximetry (%) 92 L 09/22/19 09:00 Constitutional: Yes: Calm Eyes: Yes: Conjunctiva Clear HENT: Yes: Atraumatic Cardiovascular: Yes: S1, S2 Respiratory: Yes: CTA Bilaterally Gastrointestinal: Yes: Soft Genitourinary: Yes: WNL Musculoskeletal: Yes: WNL Edema: No Integumentary: Yes: WNL Neurological: Yes: Oriented Psychiatric: Yes: Oriented Labs: CBC, BMP 09/21/19 06:40 09/21/19 06:40 INR, PTT INR 1.08 (0.83-1.09) 09/08/19 13:33 Problem List - Problems (1) Cellulitis of right foot Code(s): L03.115 - CELLULITIS OF RIGHT LOWER LIMB (2) Diabetes Code(s): E11.9 - TYPE 2 DIABETES MELLITUS WITHOUT COMPLICATIONS Qualifiers: Diabetes mellitus type: type 2 Chronic kidney disease stage: on chronic dialysis (3) ESRD (end stage renal disease) Code(s): N18.6 - END STAGE RENAL DISEASE (4) HTN (hypertension) Code(s): I10 - ESSENTIAL (PRIMARY) HYPERTENSION (5) Hypothyroid Code(s): E03.9 - HYPOTHYROIDISM, UNSPECIFIED Qualifiers: Hypothyroidism type: unspecified Qualified Code(s): E03.9 - Hypothyroidism , unspecified Assessment/Plan Current Medications Generic Name Dose Route Start Last Admin Trade Name Freq PRN Reason Stop Dose Admin Acetaminophen 650 mg 09/20/19 17:29 09/21/19 12:14 Tylenol - PO 650 mg Q6H PRN Administration FEVER Carvedilol 6.25 mg 09/22/19 11:50 Coreg - PO BID [facility] Diphenhydramine HCl 25 mg 09/20/19 17:29 Benadryl - PO HS PRN INSOMNIA Donepezil HCl 10 mg 09/21/19 10:00 09/22/19 09:40 Aricept - PO 10 mg DAILY [facility] Administration Heparin Sodium (Porcine) 5,000 unit 09/20/19 22:00 09/22/19 06:43 Heparin - SQ 5,000 unit TID [facility] Administration Hydralazine HCl 25 mg 09/20/19 22:00 09/22/19 09:40 Apresoline - PO 25 mg BID [facility] Administration Cefazolin Sodium 1 gm/ 50 mls @ 100 mls/hr 09/21/19 10:00 09/22/19 09:39 Dextrose IVPB 100 mls/hr DAILY [facility] Administration Sodium Chloride 250 mls @ 3,000 mls/hr 09/20/19 17:29 Normal Saline - IV PRN PRN Hypotension during Dialysis Insulin Aspart 1 vial 09/20/19 22:00 09/21/19 21:50 Novolog Vial Sliding Scale - SQ Not Given HS [facility] Protocol Insulin Aspart 1 vial 09/21/19 07:00 09/22/19 11:18 Novolog Vial Sliding Scale - SQ 3 units TIDAC [facility] Administration Protocol Insulin Detemir 4 units 09/22/19 22:00 Levemir Vial SQ HS [facility] Isosorbide Dinitrate 20 mg 09/20/19 18:00 09/22/19 09:40 Isordil - PO 20 mg BIDISORDIL [facility] Administration Levothyroxine Sodium 125 mcg 09/21/19 07:00 09/22/19 06:43 Synthroid - PO 125 mcg DAILY@0700 [facility] Administration Losartan Potassium 25 mg 09/21/19 10:00 09/22/19 09:40 Cozaar - PO 25 mg DAILY [facility] Administration Melatonin 10 mg 09/20/19 22:00 09/21/19 21:49 Melatonin PO 10 mg HS [facility] Administration Pantoprazole Sodium 40 mg 09/21/19 10:00 09/22/19 09:40 Protonix - PO 40 mg DAILY [facility] Administration Impression 1. ESRD 2. HTN 3. cellulitis 4. DM 5. hypothyroidism 6. hx of CVA 7. cholecystectomy Plan - next HD tomorrow - will need outpt HD set up, pending [facility] - cont arb - potassium stable - surgery follow up - renal diet
--- NOTE | 2019-09-22 16:26 | PN ---
Progress Note (short form) - Note Progress Note: Hospitalist Medicine Resting in bed,c/o discomfort in his R heel. Otherwise looks comfortable. Vitals 09/22/19 14:54 Temperature 98.3 F Pulse Rate 98 H Respiratory 20 Rate Blood Pressure 144/85 Physical Exam GENERAL: Alert, oriented to person/place/month, no acute distress. HEENT: Normal with no signs of trauma, permacath dressing c/d/i without erythema or swelling LUNGS: Breath sounds equal, clear to auscultation bilaterally. No accessory muscle use. HEART: S1, S2, RRR, no murmur noted. ABDOMEN: Soft, mildly tender R-flank with dependent edema, not distended. Surgical incisions c/d/i EXTREMITIES: 2+ pt pulses, warm, well-perfused. No peripheral edema. NEUROLOGICAL: Alert and oriented x3, normal sensation throughout, filter screen cleaner 2-12 grossly intact. able to move UE, LE would not participate in neuro exam SKIN: Warm, dry. Dressing in place over heel of right foot. Laboratory Tests 09/21/19 09/22/19 09/22/19 21:47 06:42 11:10 POC Glucometer 152 186 226 Microbiology 09/14/19 17:05 Stool Clostridioides difficile Antigen - Final 09/14/19 17:05 Stool Clostridioides difficile Toxin Assay - Final 09/08/19 16:38 Urine - Urine Clean Catch Urine Culture - Final Normal Urogenital Tequila 09/08/19 13:35 Blood - Peripheral Venous Blood Culture - Final NO GROWTH AFTER 5 DAYS INCUBATION 09/08/19 13:35 Blood - Peripheral Venous Blood Culture - Final NO GROWTH AFTER 5 DAYS INCUBATION ASSESSMENT/PLAN: 69 y/o/m with PMH significant for HTN, DM, pacemaker, ESRD on dialysis T/Th/S, questionable dementia presented to ED for right foot pain and swelling. Patient was initially being treated for cellulitis, was found to abd RUQ abd pain by daughter. Surgery was consulted and patient had a cholecystectomy done today. Patient not taking appropriate respirations (low Tidal volumes) post-op, decision made by anesthesia to keep patient intubated and sedate overnight for comfort. Now extuabted, POD#2, progressing appropriately. 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 #Pulm -Acute Hypercapneic/Hypoxic Respiratory Failure -has improved, c/w CO2 tidal monitoring -sat well on 3L NC, wean as tolerated -Maintain SpO2 >92% #Renal - ESRD on HD -for HD tomorrow (09/23) -Volume removal HD per renal, repleted K -monitor BP on ARB #GI s/p lap jody (09/17) -U/S on 09/14 showed cholelithiasis without evidence of intra or extrahepatic biliary duct dilation. gallbladder slightly thickened -GI on board: Dr. Julia Pete #Endo - DM - BGMs, ISS ACHS Levemir 4 units daily at HS. Hold when FS <140 -Endocrine: Dr. Barboza -Hypothroidism - Restarted home 125 mcg synthroid #ID - R foot cellulitis - Continue Cefazolin as per ID - afebrile, w/o leukocytosis currently -c/t monitor blood cx, ucx #FEN avoid IVF as HD pt, unless needed continue to follow lytes renal diet #PPX - GI PPX: Protonix - DVT PPX: SCDs #Disposition cont'd monitoring on med-surg needs rehab will need outpt HD set up, pending [facility] <Tracey King - Last Filed: 09/22/19 16:38> - Note Progress Note: Seen and examined; I agree with the above documentation as outlined by the resident aside from as supplemented by myself below. All historical and roach PE findings along side diagnostics independently verified. Case was discussed at length with the resident team. All questions were answered. Being transferred to our care. Levemir adjustments noted today. 69-year-old male with multiple medical problems including ESRD on hemodialysis T //S, systolic CHF initially presented with right foot cellulitis. Noted to have abdominal pain with ultrasound showing cholelithiasis. Status post lap jody on 09/17/2019. Admitted to ICU postop for prolonged intubation for respiratory failure. Now transferred to floor for further management. 10 sys ROS done and negative aside from HPI NAD AAO resting in bed NC AT EOMI PERRLA HR wnl, +s1/2 Lungs without focal crackles, rales; w/ sym exp NT ND +BS CN2-12 wnl, no fnd Normal mood, appropriate behavior A/P: Continues to be pending DC approvals. He presented to the hospital with RUQ pain and was found to have cholecystitis and was treated surgically and had a difficult etubation and was kept in ICU. He was transferred to our service and has done well since. He has ESRD on TTS HD and needs OP services and placement coordinated. He is stable on his current medications. He has an exceptionally complex medical history. Problems include: # s/p lap jody for cholelithiasis POD 3; advancing diet per sgy and monitor # hypercap/hypox resp failure - weaned off NC, fluid management with HD # R foot heel ulcer -FU wioth ID and vascular, DC planning # ESRD on HD TThSat #HTN #DMII #c/w rest of chronic home meds for chronic problems - GI PPX: Protonix - DVT PPX: heparinb subq <Zeferino Moore - Last Filed: 09/27/19 07:32>
[2019-09-22] MEDS: MELATONIN 5 MG TABLETS PO SCH (21:34)
[2019-09-22] MEDS: CARVEDILOL 6.25 MG TABLET (FP) PO SCH (21:34)
[2019-09-22] MEDS: INSULIN (LEVEMIR) 100 UNITS/ML UNITS SQ SCH (21:35)
[2019-09-23] MEDS ORDERED: INSULIN (NOVOLOG) ASPART 100 UNITS/ML 10ML VIAL ONE (06:15)
[2019-09-23] MEDS: LEVOTHYROXINE NA 125 MCG TABLET (FP) PO SCH (06:23)
[2019-09-23] MEDS: HEPARIN NA (PORCINE) 5,000 UNITS/ML 1ML VIAL SQ SCH ×3 (06:23→21:38)
[2019-09-23] MEDS: INSULIN SLIDING SCALE (NOVOLOG) 1 VIAL SQ SCH ×4 (06:23→21:38)
[2019-09-23] MEDS ORDERED: HEPARIN NA (PORCINE) 5,000 UNITS/ML 1ML VIAL IVPUSH ONE (09:15)
[2019-09-23] MEDS ORDERED: ALPRAZolam 0.25 MG TABLET PO ONE (09:51)
[2019-09-23 10:38] LABS: HEMATOCRIT 39.3 % (35.4-49); HEMOGLOBIN 12.8 GM/dL (11.7-16.9); MCHC 32.5 g/dl (32.0-35.9); MEAN CELL VOLUME 92.3 fl (80-96); MEAN PLT VOLUME 7.8 fl (7.5-11.1); PLATELET COUNT 219 K/MM3 (134-434); RBC 4.26 M/mm3 (4.00-5.60); RDW 15.2 % (11.9-15.9); WHITE BLOOD COUNT 11.7 K/mm3 (4.0-10.0)
--- NOTE | 2019-09-23 11:01 | PN ---
Progress Note (short form) - Note Progress Note: Seen during Dialysis Has mild SOB Vital Signs Period Temp Pulse Resp BP Sys/Palacios Pulse Ox Last 24 Hr 97.4 F-98.3 F 98-121 2-24 143-163/85-112 96 PE Awake alert Neck: Supple, No JVD Lungs: CTA CVS: s1S2 Abd: Sofr NT Ext: No edema Neuro: No focal deficit CMP Sodium 138 mmol/L (136-145) 09/21/19 06:40 Potassium 3.7 mmol/L (3.5-5.1) 09/21/19 06:40 Chloride 101 mmol/L (98-107) 09/21/19 06:40 Carbon Dioxide 30 mmol/L (21-32) 09/21/19 06:40 Anion Gap 7 MMOL/L (8-16) L 09/21/19 06:40 BUN 30.7 mg/dL (7-18) H 09/21/19 06:40 Creatinine 3.4 mg/dL (0.55-1.3) H 09/21/19 06:40 Est GFR (CKD-EPI)AfAm 20.04 09/21/19 06:40 Est GFR (CKD-EPI)NonAf 17.29 09/21/19 06:40 POC Glucometer 169 UNITS (80-120) 09/23/19 06:22 Random Glucose 169 mg/dL (74-106) H 09/21/19 06:40 Hemoglobin A1c % 7.2 % (4.2-6.3) H 09/09/19 15:00 Calcium 7.6 mg/dL (8.5-10.1) L 09/21/19 06:40 Phosphorus 2.4 mg/dL (2.5-4.9) L 09/21/19 06:40 Magnesium 2.0 mg/dL (1.8-2.4) 09/21/19 06:40 Total Bilirubin 0.4 mg/dL (0.2-1) 09/21/19 06:40 AST 28 U/L (15-37) 09/21/19 06:40 ALT 6 U/L (13-61) L 09/21/19 06:40 Alkaline Phosphatase 132 U/L (45-117) H 09/21/19 06:40 Ammonia 14.40 umol/L (11-32) 09/19/19 06:30 Creatine Kinase 143 U/L (26-308) 09/10/19 20:45 Creatine Kinase Index 1.3 % (0.0-5.0) 09/08/19 12:55 CK-MB (CK-2) 5.0 ng/mL (0.5-3.6) H 09/08/19 12:55 Troponin I 0.17 ng/ml (0.00-0.05) H 09/11/19 16:13 Total Protein 5.4 g/dl (6.4-8.2) L 09/21/19 06:40 Albumin 2.0 g/dl (3.4-5.0) L 09/21/19 06:40 Triglycerides 120 mg/dL (0-150) 09/09/19 04:26 Cholesterol 94 mg/dL (50-200) 09/09/19 04:26 Total LDL Cholesterol 45 mg/dL (5-100) 09/09/19 04:26 HDL Cholesterol 37 mg/dL (40-60) L 09/09/19 04:26 TSH 3.73 uIU/ml (0.358-3.74) 09/09/19 04:26 Current Medications Generic Name Dose Route Start Last Admin Trade Name Freq PRN Reason Stop Dose Admin Acetaminophen 650 mg 09/20/19 17:29 09/21/19 12:14 Tylenol - PO 650 mg Q6H PRN Administration FEVER Carvedilol 6.25 mg 09/22/19 11:50 09/22/19 21:34 Coreg - PO 6.25 mg BID OSCAR Administration Diphenhydramine HCl 25 mg 09/20/19 17:29 Benadryl - PO HS PRN INSOMNIA Donepezil HCl 10 mg 09/21/19 10:00 09/22/19 09:40 Aricept - PO 10 mg DAILY OSCAR Administration Heparin Sodium (Porcine) 5,000 unit 09/20/19 22:00 09/23/19 06:23 Heparin - SQ 5,000 unit TID OSCAR Administration Hydralazine HCl 25 mg 09/20/19 22:00 09/22/19 21:34 Apresoline - PO 25 mg BID OSCAR Administration Cefazolin Sodium 1 gm/ 50 mls @ 100 mls/hr 09/21/19 10:00 09/22/19 09:39 Dextrose IVPB 100 mls/hr DAILY OSCAR Administration Sodium Chloride 250 mls @ 3,000 mls/hr 09/22/19 14:05 Normal Saline - IV 09/23/19 14:05 PRN PRN Hypotension during Dialysis Insulin Aspart 1 vial 09/20/19 22:00 09/22/19 21:34 Novolog Vial Sliding Scale - SQ Not Given HS OSCAR Protocol Insulin Aspart 1 vial 09/21/19 07:00 09/23/19 06:23 Novolog Vial Sliding Scale - SQ 2 units TIDAC [facility]SCAR Administration Protocol Insulin Detemir 4 units 09/22/19 22:00 09/22/19 21:35 Levemir Vial SQ 4 units HS [facility]SCAR Administration Isosorbide Dinitrate 20 mg 09/20/19 18:00 09/22/19 17:27 Isordil - PO 20 mg BIDISORDIL [facility]SC[facility] Administration Levothyroxine Sodium 125 mcg 09/21/19 07:00 09/23/19 06:23 Synthroid - PO 125 mcg DAILY@0700 [facility] Administration Losartan Potassium 25 mg 09/21/19 10:00 09/22/19 09:40 Cozaar - PO 25 mg DAILY OSCAR Administration Melatonin 10 mg 09/20/19 22:00 09/22/19 21:34 Melatonin PO 10 mg HS OSCAR Administration Pantoprazole Sodium 40 mg 09/21/19 10:00 09/22/19 09:40 Protonix - PO 40 mg DAILY OSCAR Administration AP: S/P Respiratory failure Cholecystitis Rt Foot cellulitis T2DM Hypothyroidism ESRD Off Glimepiride b/o increase risk of hypoglycemia with long acting Sulfonylurea in pt on HD. BGM Q ACHS. To give 100 KCal snack when FS <100 or D50 if FS <60 Continue Levemir 4 units daily at HS. Hold when FS <140 Novolog SS coverage premeals and HS Abx as per ID Will f/u
[2019-09-23 11:12] LABS: BLOOD UREA NITROGEN 56.3 mg/dL (7-18); CALCIUM 8.5 mg/dL (8.5-10.1); CREATININE 4.2 mg/dL (0.55-1.3); POTASSIUM 4.1 mmol/L (3.5-5.1)
--- NOTE | 2019-09-23 11:24 | PN ---
Progress Note (short form) - Note Progress Note: Hospitalist Medicine Without complaint; sitting and eating breakfast this AM. For pre and post, and for dialysis today. Vitals 09/23/19 10:45 Pulse Rate 104 H Respiratory 22 H Rate Blood Pressure 143/98 Physical Exam GENERAL: resting in bed, in NAD HEENT: Normal with no signs of trauma, permacath dressing c/d/i without erythema or swelling LUNGS: Breath sounds equal, clear to auscultation bilaterally. No accessory muscle use. HEART: S1, S2, RRR, no murmur noted. ABDOMEN: Soft, nontender, non distended. Surgical incisions c/d/i EXTREMITIES: 2+ pt pulses, warm, no peripheral edema. NEUROLOGICAL: Alert and oriented x3, would not participate in full neuro exam. however able to move UE, LE independently SKIN: Warm, dry. Dressing in place over heel of right foot. c/d/i Laboratory Tests 09/23/19 09/23/19 10:15 10:15 WBC 11.7 H Hgb 12.8 Hct 39.3 Plt Count 219 Sodium 139 Potassium 4.1 Chloride 101 Carbon Dioxide 26 BUN 56.3 H Creatinine 4.2 H Random Glucose 176 H Microbiology 09/14/19 17:05 Stool Clostridioides difficile Antigen - Final 09/14/19 17:05 Stool Clostridioides difficile Toxin Assay - Final 09/08/19 16:38 Urine - Urine Clean Catch Urine Culture - Final Normal Urogenital Tequila 09/08/19 13:35 Blood - Peripheral Venous Blood Culture - Final NO GROWTH AFTER 5 DAYS INCUBATION 09/08/19 13:35 Blood - Peripheral Venous Blood Culture - Final NO GROWTH AFTER 5 DAYS INCUBATION Imaging 09/08 CXR: large heart, folded aorta, L sided PPM, R jugular line with tip in RA , pleural reaction and atelectasis at the right base, with atelectasis in the lingula. no infiltrate. some posterior costophrenic angle blunting 09/08 foot and ankle XR (right): no acute fx. some medial malleolar soft tissue swelling. bunion formation by first MTP. 09/08: R knee xr : (-) for acute abnormality 09/08 R tib/fib xr: no fx or subluxation. there is a fabella, vasc calcifications and posterior calcaneal spurring 09/[address]: (-) 09/08 CTAP: bilateral pleural effusions, cardiomegaly, transvenous PPM in place. bilateral flank subcutaneous edema. small amount of blanquita-hepatic free fluid. mild nonspecific pericolonic soft tissue stranding adjacent to the sigmoid colon. ?possible acute recent diverticulitis. cholelithiasis. 09/11 R hip XR: (+) vascular calcifications noted. 09/11 Rib XR: weak inspiration and congestive and infiltrative changes. PPM and R jugular line. old rib trauma to right rib. acute fx not seen. 09/[address]: (-) 09/11: b/l shoulder XR: (-) 09/12 arterial doppler, CORINA: unable to calculate CORINA bilaterally due to medial calcinosis. R dorsalis pedis artery monophasic wave with blunting of PVR waveforms bilaterally at the ankles and metatarsals most significantly the R metatarsal suggesting infrapopliteal dz with critical dz in the right anterior tibial artery. 09/14: XR flat and upright: gallstones, nonspecific bowel pattern. vasc calcifications. no ileus. congestive changes and bilateral effusions and basilar atelectasis. prominent mediastinum, multilead PPM and central line 09/14: Hip/Pelvis XR: (-) 09/14: abdom sono: R pleural effusion and trace ascites, cholelithiasis, heterogeneous liver with no discrete mass. 09/17: CXR: interval insertion ETT with tip in borderline position, 2cm above liz. no pneumo. interval bibasilar consolidation and aispace disease L>R, small bilateral pleural effusion 09/18: CXR: worse, progressive pulmonary and pleural findings 09/19: CXR: ETT removed. R jugular line and PPM and bilateral pulmonary and pleural changes are again noted. since last study, increased and the right changes have diminished 09/20: CXR: congestive changes with bibasilar pleural effusions, atelectasis and edema in the lungs, minimally improved since 09/18/19. Superimposed PNA is not definitely suspected radiographically. ASSESSMENT/PLAN: 69 y/o/m with PMH significant for HTN, DM, pacemaker, ESRD on dialysis T/Th/S, questionable dementia presented to ED for right foot pain and swelling. Patient was initially being treated for cellulitis, was found to abd RUQ abd pain by daughter. Surgery was consulted and patient had a cholecystectomy done today. Patient not taking appropriate respirations (low Tidal volumes) post-op, decision made by anesthesia to keep patient intubated and sedate overnight for comfort. Now extuabted, POD#2, progressing appropriately. 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 #Pulm -Acute Hypercapneic/Hypoxic Respiratory Failure -has improved, c/w CO2 tidal monitoring -sat well on 3L NC, wean as tolerated -Maintain SpO2 >92% #Renal - ESRD on HD -for HD today (09/23) -Volume removal HD per renal -monitor BP on ARB -will need fistula as an outpt #GI s/p lap jody (09/17) -U/S on 09/14 showed cholelithiasis without evidence of intra or extrahepatic biliary duct dilation. gallbladder slightly thickened -GI on board: Dr. Julia Pete #Endo - DM - BGMs, ISS ACHS Levemir 4 units daily at HS. Hold when FS <140 - Endocrine: Dr. Barboza -Hypothroidism - Restarted home 125 mcg synthroid #ID - R foot cellulitis - Continue Cefazolin as per ID - afebrile, w/o leukocytosis currently - c/t monitor blood cx, ucx #FEN avoid IVF as HD pt, unless needed continue to follow lytes renal diet #PPX - GI PPX: Protonix - DVT PPX: SCDs #Disposition cont'd monitoring on med-surg needs rehab will need outpt HD set up, pending [facility] - will need fistula as outpt <Tracey King - Last Filed: 09/23/19 17:42> - Note Progress Note: Seen and examined; I agree with the above documentation as outlined by the resident aside from as supplemented by myself below. All historical and roach PE findings along side diagnostics independently verified. Case was discussed at length with the resident team. All questions were answered. No new issues; confused this morning. 10 sys ROS done and negative aside from HPI NAD AAO resting in bed NC AT EOMI PERRLA HR wnl, +s1/2 Lungs without focal crackles, rales; w/ sym exp NT ND +BS CN2-12 wnl, no fnd Normal mood, appropriate behavior A/P: Continues to be pending DC approvals. He presented to the hospital with RUQ pain and was found to have cholecystitis and was treated surgically and had a difficult etubation and was kept in ICU. He was transferred to our service and has done well since. He has ESRD on TTS HD and needs OP services and placement coordinated. He is stable on his current medications. He has an exceptionally complex medical history. Problems include: -Acute respiratory failure (remains resolved; status post intubation) -Severe HFrEF 2/2 ischemic CM (c/w Carvedilol, Losartan, isosordil, hydralazine. Management per Dr. Day. Had a negative interrogation of AICD. Echo 20-25%. No plans for advanced devices, etc.) -ESRD on HD (set up OP HD services, FU with Dr. Dubose, OP fistula placement) -HTN (Stable) -Cellulitis (Was on abx per ID; PO Keflex on DC) -Hx DM (continue current management; monitoring AC+HS fsg) -Hx CVA (Noted; continue home meds. No change in neuro exam) -History of dementia (continue donepezil; alzheimer type with likely vascular component) -Status Post Cholecystectomy (No issues postop, no wound infection, FU OP with sgy.) -Hx hypothyroidism (no s/s myxedema; FU OP TSH and continue current management) <Zeferino Moore - Last Filed: 09/27/19 07:29>
--- NOTE | 2019-09-23 12:40 | PN ---
Progress Note, Physician Chief Complaint: Complains of dyspnea Await HD this AM History of Present Illness: Patient was seen and examined. Awake and alert. Chart was reviewed Denies chest pain or palpitations, but complains of dyspnea Currently on his way to HD - Current Medication List Current Medications: Active Medications Acetaminophen (Tylenol -) 650 mg PO Q6H PRN PRN Reason: FEVER Last Admin: 09/21/19 12:14 Dose: 650 mg Carvedilol (Coreg -) 6.25 mg PO BID [facility] Last Admin: 09/22/19 21:34 Dose: 6.25 mg Diphenhydramine HCl (Benadryl -) 25 mg PO HS PRN PRN Reason: INSOMNIA Donepezil HCl (Aricept -) 10 mg PO DAILY [facility] Last Admin: 09/22/19 09:40 Dose: 10 mg Heparin Sodium (Porcine) (Heparin -) 5,000 unit SQ TID [facility] Last Admin: 09/23/19 06:23 Dose: 5,000 unit Hydralazine HCl (Apresoline -) 25 mg PO BID [facility] Last Admin: 09/22/19 21:34 Dose: 25 mg Cefazolin Sodium 1 gm/ (Dextrose) 50 mls @ 100 mls/hr IVPB DAILY [facility] Last Admin: 09/22/19 09:39 Dose: 100 mls/hr Sodium Chloride (Normal Saline -) 250 mls @ 3,000 mls/hr IV PRN PRN PRN Reason: Hypotension during Dialysis Stop: 09/23/19 14:05 Insulin Aspart (Novolog Vial Sliding Scale -) 1 vial SQ HS [facility]; Protocol Last Admin: 09/22/19 21:34 Dose: Not Given Insulin Aspart (Novolog Vial Sliding Scale -) 1 vial SQ TIDAC [facility]; Protocol Last Admin: 09/23/19 06:23 Dose: 2 units Insulin Detemir (Levemir Vial) 4 units SQ HS [facility] Last Admin: 09/22/19 21:35 Dose: 4 units Isosorbide Dinitrate (Isordil -) 20 mg PO BIDISORDIL [facility] Last Admin: 09/22/19 17:27 Dose: 20 mg Levothyroxine Sodium (Synthroid -) 125 mcg PO DAILY@0700 [facility] Last Admin: 09/23/19 06:23 Dose: 125 mcg Losartan Potassium (Cozaar -) 25 mg PO DAILY [facility] Last Admin: 09/22/19 09:40 Dose: 25 mg Melatonin (Melatonin) 10 mg PO HS [facility] Last Admin: 09/22/19 21:34 Dose: 10 mg Pantoprazole Sodium (Protonix -) 40 mg PO DAILY [facility] Last Admin: 09/22/19 09:40 Dose: 40 mg - Objective Vital Signs: Vital Signs Temperature 98.2 F 09/23/19 10:10 Pulse Rate 81 09/23/19 12:15 Respiratory Rate 18 09/23/19 12:15 Blood Pressure 133/96 09/23/19 12:15 O2 Sat by Pulse Oximetry (%) 96 09/23/19 09:00 Neck: Yes: Supple Cardiovascular: Yes: Regular Rate and Rhythm, S1, S2 Respiratory: Yes: Diminished Gastrointestinal: Yes: Normal Bowel Sounds, Soft. No: Tenderness Edema: No Labs: CBC, BMP 09/23/19 10:15 09/23/19 10:15 Problem List - Problems (1) Biventricular ICD (implantable cardioverter-defibrillator) in place Code(s): Z95.810 - PRESENCE OF AUTOMATIC (IMPLANTABLE) CARDIAC DEFIBRILLATOR (2) Cardiomyopathy Code(s): I42.9 - CARDIOMYOPATHY, UNSPECIFIED Qualifiers: Cardiomyopathy type: unspecified Qualified Code(s): I42.9 - Cardiomyopathy , unspecified (3) Cellulitis of right foot Code(s): L03.115 - CELLULITIS OF RIGHT LOWER LIMB (4) Diabetes Code(s): E11.9 - TYPE 2 DIABETES MELLITUS WITHOUT COMPLICATIONS Qualifiers: Diabetes mellitus type: type 2 Chronic kidney disease stage: on chronic dialysis (5) ESRD (end stage renal disease) Code(s): N18.6 - END STAGE RENAL DISEASE (6) HTN (hypertension) Code(s): I10 - ESSENTIAL (PRIMARY) HYPERTENSION (7) Hypothyroid Code(s): E03.9 - HYPOTHYROIDISM, UNSPECIFIED Qualifiers: Hypothyroidism type: unspecified Qualified Code(s): E03.9 - Hypothyroidism , unspecified (8) Right foot pain Code(s): M79.671 - PAIN IN RIGHT FOOT (9) Cholelithiasis Code(s): K80.20 - CALCULUS OF GALLBLADDER W/O CHOLECYSTITIS W/O OBSTRUCTION Assessment/Plan 1. Post Laparoscopic cholecystectomy 2. Acute Hypercapneic/Hypoxic Respiratory Failure 3. Acute on chronic systolic heart failure 4. Severe cardiomyopathy s/p DIE BARBER/ICD 5. HTN 6. ESRD on HD (//) 7. Rt Foot cellulitis, r/o PAD 8. Type 2 DM 9. Hypothyroidism 10. Dementia PLAN: 1. HD now and monitor renal function and electrolytes (and for symptomatic relief) 2. Wound care, antibiotic coverage per ID. 3. Continue Carvedilol 6.25 mg BID and Losartan 25 mg QD with uptitrate as hemodynamics tolerate. Continue Isordil 20 mg BID and Hydralazine 25 mg BID 4. Continue post op care Olman Pina MD
[2019-09-23] MEDS ORDERED: ceFAZolin SODIUM 1 GM VIAL ONE (13:47)
[2019-09-23] MEDS ORDERED: DEXTROSE 5%-WATER - 50 ML IVPB ONE (13:47)
[2019-09-23] MEDS: LOSARTAN POTASSIUM 25 MG TABLET PO SCH (14:04)
[2019-09-23] MEDS: ISOSORBIDE DINITRATE 20 MG TABLET (FP) PO SCH ×2 (14:04→17:24)
[2019-09-23] MEDS: DONEPEZIL HCL 10 MG TABLET (FP) PO SCH (14:04)
[2019-09-23] MEDS: PANTOPRAZOLE 40 MG TABLET (FP) PO SCH (14:04)
[2019-09-23] MEDS: CARVEDILOL 6.25 MG TABLET (FP) PO SCH ×2 (14:04→21:36)
[2019-09-23] MEDS: hydrALAZINE HCL 25 MG TABLET (FP) PO SCH ×2 (14:04→21:36)
[2019-09-23] MEDS: CEFAZOLIN 1 GM in DEXTROSE 5%-WATER - 50 ML IVPB SCH (14:09)
[2019-09-23] MEDS ORDERED: TRIMETHOBENZAMIDE HCL 200MG/2ML INJ IM ONE (16:15)
--- NOTE | 2019-09-23 17:01 | PN ---
Progress Note, Physician History of Present Illness: Pt seen and examined at bedside. He is tolerating HD. - Current Medication List Current Medications: Active Medications Acetaminophen (Tylenol -) 650 mg PO Q6H PRN PRN Reason: FEVER Last Admin: 09/21/19 12:14 Dose: 650 mg Carvedilol (Coreg -) 6.25 mg PO BID [facility] Last Admin: 09/23/19 14:04 Dose: 6.25 mg Diphenhydramine HCl (Benadryl -) 25 mg PO HS PRN PRN Reason: INSOMNIA Donepezil HCl (Aricept -) 10 mg PO DAILY [facility] Last Admin: 09/23/19 14:04 Dose: 10 mg Heparin Sodium (Porcine) (Heparin -) 5,000 unit SQ TID [facility] Last Admin: 09/23/19 14:05 Dose: 5,000 unit Hydralazine HCl (Apresoline -) 25 mg PO BID [facility] Last Admin: 09/23/19 14:04 Dose: 25 mg Cefazolin Sodium 1 gm/ (Dextrose) 50 mls @ 100 mls/hr IVPB DAILY [facility] Last Admin: 09/23/19 14:09 Dose: 100 mls/hr Insulin Aspart (Novolog Vial Sliding Scale -) 1 vial SQ HS [facility]; Protocol Last Admin: 09/22/19 21:34 Dose: Not Given Insulin Aspart (Novolog Vial Sliding Scale -) 1 vial SQ TIDAC [facility]; Protocol Last Admin: 09/23/19 14:05 Dose: Not Given Insulin Detemir (Levemir Vial) 4 units SQ HS [facility] Last Admin: 09/22/19 21:35 Dose: 4 units Isosorbide Dinitrate (Isordil -) 20 mg PO BIDISORDIL [facility] Last Admin: 09/23/19 14:04 Dose: 20 mg Levothyroxine Sodium (Synthroid -) 125 mcg PO DAILY@0700 [facility] Last Admin: 09/23/19 06:23 Dose: 125 mcg Losartan Potassium (Cozaar -) 25 mg PO DAILY [facility] Last Admin: 09/23/19 14:04 Dose: 25 mg Melatonin (Melatonin) 10 mg PO HS [facility] Last Admin: 09/22/19 21:34 Dose: 10 mg Pantoprazole Sodium (Protonix -) 40 mg PO DAILY [facility] Last Admin: 09/23/19 14:04 Dose: 40 mg - Objective Vital Signs: Vital Signs Temperature 98.2 F 09/23/19 10:10 Pulse Rate 110 H 09/23/19 15:43 Respiratory Rate 18 09/23/19 13:35 Blood Pressure 139/93 09/23/19 13:35 O2 Sat by Pulse Oximetry (%) 87 L 09/23/19 15:43 Constitutional: Yes: Calm Eyes: Yes: Conjunctiva Clear HENT: Yes: Atraumatic Neck: Yes: Supple Cardiovascular: Yes: S1, S2 Respiratory: Yes: CTA Bilaterally Gastrointestinal: Yes: Soft Genitourinary: Yes: WNL Musculoskeletal: Yes: WNL Edema: No Neurological: Yes: Oriented Labs: CBC, BMP 09/23/19 10:15 09/23/19 10:15 INR, PTT INR 1.08 (0.83-1.09) 09/08/19 13:33 Problem List - Problems (1) Cellulitis of right foot Code(s): L03.115 - CELLULITIS OF RIGHT LOWER LIMB (2) Diabetes Code(s): E11.9 - TYPE 2 DIABETES MELLITUS WITHOUT COMPLICATIONS Qualifiers: Diabetes mellitus type: type 2 Chronic kidney disease stage: on chronic dialysis (3) ESRD (end stage renal disease) Code(s): N18.6 - END STAGE RENAL DISEASE (4) HTN (hypertension) Code(s): I10 - ESSENTIAL (PRIMARY) HYPERTENSION (5) Hypothyroid Code(s): E03.9 - HYPOTHYROIDISM, UNSPECIFIED Qualifiers: Hypothyroidism type: unspecified Qualified Code(s): E03.9 - Hypothyroidism , unspecified Assessment/Plan Current Medications Generic Name Dose Route Start Last Admin Trade Name Freq PRN Reason Stop Dose Admin Acetaminophen 650 mg 09/20/19 17:29 09/21/19 12:14 Tylenol - PO 650 mg Q6H PRN Administration FEVER Carvedilol 6.25 mg 09/22/19 11:50 09/23/19 14:04 Coreg - PO 6.25 mg BID [facility] Administration Diphenhydramine HCl 25 mg 09/20/19 17:29 Benadryl - PO HS PRN INSOMNIA Donepezil HCl 10 mg 09/21/19 10:00 09/23/19 14:04 Aricept - PO 10 mg DAILY [facility] Administration Heparin Sodium (Porcine) 5,000 unit 09/20/19 22:00 09/23/19 14:05 Heparin - SQ 5,000 unit TID [facility] Administration Hydralazine HCl 25 mg 09/20/19 22:00 09/23/19 14:04 Apresoline - PO 25 mg BID [facility] Administration Cefazolin Sodium 1 gm/ 50 mls @ 100 mls/hr 09/21/19 10:00 09/23/19 14:09 Dextrose IVPB 100 mls/hr DAILY [facility] Administration Insulin Aspart 1 vial 09/20/19 22:00 09/22/19 21:34 Novolog Vial Sliding Scale - SQ Not Given HS [facility] Protocol Insulin Aspart 1 vial 09/21/19 07:00 09/23/19 14:05 Novolog Vial Sliding Scale - SQ Not Given TIDAC [facility] Protocol Insulin Detemir 4 units 09/22/19 22:00 09/22/19 21:35 Levemir Vial SQ 4 units HS [facility] Administration Isosorbide Dinitrate 20 mg 09/20/19 18:00 09/23/19 14:04 Isordil - PO 20 mg BIDISORDIL [facility] Administration Levothyroxine Sodium 125 mcg 09/21/19 07:00 09/23/19 06:23 Synthroid - PO 125 mcg DAILY@0700 [facility] Administration Losartan Potassium 25 mg 09/21/19 10:00 09/23/19 14:04 Cozaar - PO 25 mg DAILY [facility] Administration Melatonin 10 mg 09/20/19 22:00 09/22/19 21:34 Melatonin PO 10 mg HS [facility] Administration Pantoprazole Sodium 40 mg 09/21/19 10:00 09/23/19 14:04 Protonix - PO 40 mg DAILY [facility] Administration Impression 1. ESRD 2. HTN 3. cellulitis 4. DM 5. hypothyroidism 6. hx of CVA 7. cholecystectomy Plan - HD today - pending placement in HD - will need fistula as outpt - cont arb - potassium stable - surgery follow up - renal diet
[2019-09-23] MEDS: INSULIN (LEVEMIR) 100 UNITS/ML UNITS SQ SCH (21:36)
[2019-09-23] MEDS: MELATONIN 5 MG TABLETS PO SCH (21:36)
[2019-09-23] MEDS: ACETAMINOPHEN 325 MG TABLET (FP) PO PRN (21:40)
[2019-09-24] MEDS: HEPARIN NA (PORCINE) 5,000 UNITS/ML 1ML VIAL SQ SCH ×3 (06:03→22:02)
[2019-09-24] MEDS: LEVOTHYROXINE NA 125 MCG TABLET (FP) PO SCH (06:03)
[2019-09-24] MEDS: INSULIN SLIDING SCALE (NOVOLOG) 1 VIAL SQ SCH ×4 (06:04→22:04)
[2019-09-24 09:31] LABS: EOS % 1.2 % (0-4.5); HEMOGLOBIN 11.4 GM/dL (11.7-16.9); LYMPH % 22.1 % (8-40); MCH 30.7 pg (25.7-33.7); MCHC 33.4 g/dl (32.0-35.9); MEAN CELL VOLUME 92.1 fl (80-96); MEAN PLT VOLUME 8.4 fl (7.5-11.1); MONO % 7.8 % (3.8-10.2); NEUT % 67.9 % (42.8-82.8); PLATELET COUNT 152 K/MM3 (134-434); RDW 14.9 % (11.9-15.9)
[2019-09-24] MEDS ORDERED: ceFAZolin SODIUM 1 GM VIAL ONE (10:10)
[2019-09-24] MEDS ORDERED: DEXTROSE 5%-WATER - 50 ML IVPB ONE (10:10)
[2019-09-24 10:13] LABS: BLOOD UREA NITROGEN 40.2 mg/dL (7-18); CALCIUM 8.3 mg/dL (8.5-10.1); CREATININE 3.4 mg/dL (0.55-1.3); MAGNESIUM 1.8 mg/dL (1.8-2.4); PHOSPHOROUS 3.8 mg/dL (2.5-4.9); POTASSIUM 3.9 mmol/L (3.5-5.1)
[2019-09-24] MEDS: CEFAZOLIN 1 GM in DEXTROSE 5%-WATER - 50 ML IVPB SCH (10:26)
[2019-09-24] MEDS: ISOSORBIDE DINITRATE 20 MG TABLET (FP) PO SCH ×2 (10:27→17:42)
[2019-09-24] MEDS: DONEPEZIL HCL 10 MG TABLET (FP) PO SCH (10:28)
[2019-09-24] MEDS: PANTOPRAZOLE 40 MG TABLET (FP) PO SCH (10:28)
[2019-09-24] MEDS: LOSARTAN POTASSIUM 25 MG TABLET PO SCH (10:28)
[2019-09-24] MEDS: hydrALAZINE HCL 25 MG TABLET (FP) PO SCH ×2 (10:28→22:03)
[2019-09-24] MEDS: CARVEDILOL 6.25 MG TABLET (FP) PO SCH ×2 (10:28→22:03)
--- NOTE | 2019-09-24 10:34 | PN ---
Progress Note (short form) - Note Progress Note: C/o abd pain No SOB Vital Signs Period Temp Pulse Resp BP Sys/Palacios Pulse Ox Last 24 Hr 97.8 F-98 F 75-110 18-22 107-143/66-103 87 PE Awake alert Neck: Supple, No JVD Lungs: CTA CVS: s1S2 Abd: Sofr NT Ext: No edema Neuro: No focal deficit CMP Sodium 136 mmol/L (136-145) 09/24/19 08:10 Potassium 3.9 mmol/L (3.5-5.1) 09/24/19 08:10 Chloride 101 mmol/L (98-107) 09/24/19 08:10 Carbon Dioxide 28 mmol/L (21-32) 09/24/19 08:10 Anion Gap 8 MMOL/L (8-16) 09/24/19 08:10 BUN 40.2 mg/dL (7-18) H 09/24/19 08:10 Creatinine 3.4 mg/dL (0.55-1.3) H 09/24/19 08:10 Est GFR (CKD-EPI)AfAm 20.04 09/24/19 08:10 Est GFR (CKD-EPI)NonAf 17.29 09/24/19 08:10 POC Glucometer 131 UNITS (80-120) 09/24/19 05:57 Random Glucose 120 mg/dL (74-106) H 09/24/19 08:10 Hemoglobin A1c % 7.2 % (4.2-6.3) H 09/09/19 15:00 Calcium 8.3 mg/dL (8.5-10.1) L 09/24/19 08:10 Phosphorus 3.8 mg/dL (2.5-4.9) 09/24/19 08:10 Magnesium 1.8 mg/dL (1.8-2.4) 09/24/19 08:10 Total Bilirubin 0.4 mg/dL (0.2-1) 09/21/19 06:40 AST 28 U/L (15-37) 09/21/19 06:40 ALT 6 U/L (13-61) L 09/21/19 06:40 Alkaline Phosphatase 132 U/L (45-117) H 09/21/19 06:40 Ammonia 14.40 umol/L (11-32) 09/19/19 06:30 Creatine Kinase 143 U/L (26-308) 09/10/19 20:45 Creatine Kinase Index 1.3 % (0.0-5.0) 09/08/19 12:55 CK-MB (CK-2) 5.0 ng/mL (0.5-3.6) H 09/08/19 12:55 Troponin I 0.17 ng/ml (0.00-0.05) H 09/11/19 16:13 Total Protein 5.4 g/dl (6.4-8.2) L 09/21/19 06:40 Albumin 2.0 g/dl (3.4-5.0) L 09/21/19 06:40 Triglycerides 120 mg/dL (0-150) 09/09/19 04:26 Cholesterol 94 mg/dL (50-200) 09/09/19 04:26 Total LDL Cholesterol 45 mg/dL (5-100) 09/09/19 04:26 HDL Cholesterol 37 mg/dL (40-60) L 09/09/19 04:26 TSH 3.73 uIU/ml (0.358-3.74) 09/09/19 04:26 Current Medications Generic Name Dose Route Start Last Admin Trade Name Freq PRN Reason Stop Dose Admin Acetaminophen 650 mg 09/20/19 17:29 09/23/19 21:40 Tylenol - PO 650 mg Q6H PRN Administration FEVER Carvedilol 6.25 mg 09/22/19 11:50 09/24/19 10:28 Coreg - PO 6.25 mg BID [facility] Administration Diphenhydramine HCl 25 mg 09/20/19 17:29 Benadryl - PO HS PRN INSOMNIA Donepezil HCl 10 mg 09/21/19 10:00 09/24/19 10:28 Aricept - PO 10 mg DAILY [facility] Administration Heparin Sodium (Porcine) 5,000 unit 09/20/19 22:00 09/24/19 06:03 Heparin - SQ 5,000 unit TID [facility] Administration Hydralazine HCl 25 mg 09/20/19 22:00 09/24/19 10:28 Apresoline - PO 25 mg BID [facility] Administration Cefazolin Sodium 1 gm/ 50 mls @ 100 mls/hr 09/21/19 10:00 09/24/19 10:26 Dextrose IVPB 100 mls/hr DAILY [facility] Administration Insulin Aspart 1 vial 09/20/19 22:00 09/23/19 21:38 Novolog Vial Sliding Scale - SQ Not Given HS [facility] Protocol Insulin Aspart 1 vial 09/21/19 07:00 09/24/19 06:04 Novolog Vial Sliding Scale - SQ Not Given TIDAC [facility] Protocol Insulin Detemir 4 units 09/22/19 22:00 09/23/19 21:36 Levemir Vial SQ 4 units HS [facility] Administration Isosorbide Dinitrate 20 mg 09/20/19 18:00 09/24/19 10:27 Isordil - PO 20 mg BIDISORDIL [facility] Administration Levothyroxine Sodium 125 mcg 09/21/19 07:00 09/24/19 06:03 Synthroid - PO 125 mcg DAILY@0700 [facility] Administration Losartan Potassium 25 mg 09/21/19 10:00 09/24/19 10:28 Cozaar - PO 25 mg DAILY [facility] Administration Melatonin 10 mg 09/20/19 22:00 09/23/19 21:36 Melatonin PO 10 mg HS [facility] Administration Pantoprazole Sodium 40 mg 09/21/19 10:00 09/24/19 10:28 Protonix - PO 40 mg DAILY [facility] Administration AP: S/P Respiratory failure Cholecystitis Rt Foot cellulitis T2DM Hypothyroidism ESRD Off Glimepiride b/o increase risk of hypoglycemia with long acting Sulfonylurea in pt on HD. BGM Q ACHS. To give 100 KCal snack when FS <100 or D50 if FS <60 Continue Levemir 4 units daily at HS. Hold when FS <140 Novolog SS coverage premeals and HS Abx as per ID Will f/u
--- NOTE | 2019-09-24 10:59 | PN ---
Progress Note (short form) - Note Progress Note: Hospitalist Medicine Without physical complaint. However upset that his boombox is currently not working Vitals 09/24/19 10:00 Temperature 97.9 F Pulse Rate 83 Respiratory 20 Rate Blood Pressure 114/78 Physical Exam GENERAL: resting in bed, in NAD HEENT: Normal with no signs of trauma, permacath dressing c/d/i without erythema or swelling LUNGS: Breath sounds equal, clear to auscultation bilaterally. No accessory muscle use. HEART: S1, S2, RRR, no murmur noted. ABDOMEN: Soft, nontender, non distended. Surgical incisions c/d/i EXTREMITIES: 2+ pt pulses, warm, no peripheral edema. NEUROLOGICAL: Alert and oriented x3, would not participate in full neuro exam. SKIN: Warm, dry. Dressing over heel of right foot. c/d/i Laboratory Tests 09/24/19 09/24/19 08:10 08:10 WBC 5.0 Hgb 11.4 L Hct 34.0 L Plt Count 152 D MPV 8.4 Sodium 136 Potassium 3.9 Chloride 101 Carbon Dioxide 28 BUN 40.2 H Creatinine 3.4 H Random Glucose 120 H Microbiology 09/14/19 17:05 Stool Clostridioides difficile Antigen - Final 09/14/19 17:05 Stool Clostridioides difficile Toxin Assay - Final 09/08/19 16:38 Urine - Urine Clean Catch Urine Culture - Final Normal Urogenital [place] 09/08/19 13:35 Blood - Peripheral Venous Blood Culture - Final NO GROWTH AFTER 5 DAYS INCUBATION 09/08/19 13:35 Blood - Peripheral Venous Blood Culture - Final NO GROWTH AFTER 5 DAYS INCUBATION Imaging 09/08 CXR: large heart, folded aorta, L sided PPM, R jugular line with tip in RA , pleural reaction and atelectasis at the right base, with atelectasis in the lingula. no infiltrate. some posterior costophrenic angle blunting 09/08 foot and ankle XR (right): no acute fx. some medial malleolar soft tissue swelling. bunion formation by first MTP. 09/08: R knee xr : (-) for acute abnormality 09/08 R tib/fib xr: no fx or subluxation. there is a fabella, vasc calcifications and posterior calcaneal spurring 09/[address]: (-) 09/08 CTAP: bilateral pleural effusions, cardiomegaly, transvenous PPM in place. bilateral flank subcutaneous edema. small amount of blanquita-hepatic free fluid. mild nonspecific pericolonic soft tissue stranding adjacent to the sigmoid colon. ?possible acute recent diverticulitis. cholelithiasis. 09/11 R hip XR: (+) vascular calcifications noted. 09/11 Rib XR: weak inspiration and congestive and infiltrative changes. PPM and R jugular line. old rib trauma to right rib. acute fx not seen. 09/[address]: (-) 09/11: b/l shoulder XR: (-) 09/12 arterial doppler, OCRINA: unable to calculate CORINA bilaterally due to medial calcinosis. R dorsalis pedis artery monophasic wave with blunting of PVR waveforms bilaterally at the ankles and metatarsals most significantly the R metatarsal suggesting infrapopliteal dz with critical dz in the right anterior tibial artery. 09/14: XR flat and upright: gallstones, nonspecific bowel pattern. vasc calcifications. no ileus. congestive changes and bilateral effusions and basilar atelectasis. prominent mediastinum, multilead PPM and central line 09/14: Hip/Pelvis XR: (-) 09/14: abdom sono: R pleural effusion and trace ascites, cholelithiasis, heterogeneous liver with no discrete mass. 09/17: CXR: interval insertion ETT with tip in borderline position, 2cm above liz. no pneumo. interval bibasilar consolidation and aispace disease L>R, small bilateral pleural effusion 09/18: CXR: worse, progressive pulmonary and pleural findings 09/19: CXR: ETT removed. R jugular line and PPM and bilateral pulmonary and pleural changes are again noted. since last study, increased and the right changes have diminished 09/20: CXR: congestive changes with bibasilar pleural effusions, atelectasis and edema in the lungs, minimally improved since 09/18/19. Superimposed PNA is not definitely suspected radiographically. ASSESSMENT/PLAN: 69 y/o/m with PMH significant for HTN, DM, pacemaker, ESRD on dialysis T//S, questionable dementia presented to ED for right foot pain and swelling. Patient was initially being treated for cellulitis, was found to abd RUQ abd pain by daughter. Surgery was consulted and patient had a cholecystectomy done today. Patient not taking appropriate respirations (low Tidal volumes) post-op, decision made by anesthesia to keep patient intubated and sedate overnight for comfort. Now extuabted, POD#2, progressing appropriately. #Neuro -Extubated 09/18 Dementia - C/w Donepezil - CTH (-) for acute path - may be causing waxing and waning consciousness; at baseline per Starla horn R/o AMS - s/p rapid response today, as pt staring into space - may be 2/2 waxing, waning from dementia. may also be 2/2 infection - ammonia WNL, ABG WNL; not retaining CO2 #Cardio - Hx HTN, hx DEVOPS ARCHITECT/ICD - Increase Carvedilol to 6.25 mg BID and Losartan 25 mg QD - ECHO w/ systolic dysfnc EF 20-25% - Severe cardiomyopathy s/p DEVOPS ARCHITECT/ICD - Vik [employer] DEVOPS ARCHITECT-D interrogated, normal function. #Pulm -Acute Hypercapneic/Hypoxic Respiratory Failure -has improved -sat well on 3L NC, wean as tolerated -Maintain SpO2 >92% #Renal - ESRD on HD - HD tomorrow (09/25) -monitor BP on ARB -will need fistula as an outpt #GI s/p lap jody (09/17) -U/S on 09/14 showed cholelithiasis without evidence of intra or extrahepatic biliary duct dilation. gallbladder slightly thickened -GI on board: Dr. Julia Pete #Endo - DM - BGMs, ISS ACHS Levemir 4 units daily at HS. Hold when FS <140 - Endocrine: Dr. Barboza -Hypothroidism - Restarted home 125 mcg synthroid #ID - R foot cellulitis - Continue Cefazolin as per ID (09/21) - afebrile, w/o leukocytosis currently - c/t monitor blood cx, ucx #FEN avoid IVF as HD pt, unless needed continue to follow lytes renal diet #PPX - GI PPX: Protonix - DVT PPX: SCDs #Disposition cont'd monitoring on med-surg needs rehab will need pre and post on d/c will need outpt HD set up, pending [facility] - will need fistula as outpt -per daughterStarla- goal is to have pt living independently w/ home help via aid <Tracey King - Last Filed: 09/24/19 17:05> - Note Progress Note: Seen and examined; I agree with the above documentation as outlined by the resident aside from as supplemented by myself below. All historical and roach PE findings along side diagnostics independently verified. Case was discussed at length with the resident team. All questions were answered. No other events reported; stable and denies new complaints. 10 sys ROS done and negative aside from HPI NAD AAO resting in bed NC AT EOMI PERRLA HR wnl, +s1/2 Lungs without focal crackles, rales; w/ sym exp NT ND +BS CN2-12 wnl, no fnd Normal mood, appropriate behavior R-foot improved 09/19/2019 [employer] DEVOPS ARCHITECT-D interrogated, 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 08/2019 10 beat run of NSVT self- terminated w/o therapy. 09/12/2019 Moderate dilated with severely decreased LVEF 20-25%, preserved wall motion at base, rest of segments severely HK, mod-severe MR, mild TR, pacemaker RV, mild-mod AR, mild ao dilatation 4.1 cm A/P: Continues to be pending DC approvals. He presented to the hospital with RUQ pain and was found to have cholecystitis and was treated surgically and had a difficult etubation and was kept in ICU. He was transferred to our service and has done well since. He has ESRD on TTS HD and needs OP services and placement coordinated. He is stable on his current medications. He has an exceptionally complex medical history. Problems include: -Acute respiratory failure (remains resolved; status post intubation) -Severe HFrEF 2/2 ischemic CM (c/w Carvedilol, Losartan, isosordil, hydralazine. Management per Dr. Day. Had a negative interrogation of AICD. Echo 20-25%. No plans for advanced devices, etc.) -ESRD on HD (set up OP HD services, FU with Dr. Dubose, OP fistula placement) -HTN (Stable) -Cellulitis (Was on abx per ID; -Hx DM (continue current management; monitoring AC+HS fsg) -Hx CVA (Noted; continue home meds. No change in neuro exam) -History of dementia (continue donepezil; alzheimer type with likely vascular component) -Status Post Cholecystectomy (No issues postop, no wound infection, FU OP with sgy.) -Hx hypothyroidism (no s/s myxedema; FU OP TSH and continue current management) Full Code <Zeferino Moore - Last Filed: 09/27/19 07:28>
--- NOTE | 2019-09-24 12:23 | RAPID ---
Physical Examination Vital Signs: Vital Signs Temperature 97.9 F 09/24/19 10:00 Pulse Rate 83 09/24/19 10:00 Respiratory Rate 20 09/24/19 10:00 Blood Pressure 114/78 09/24/19 10:00 O2 Sat by Pulse Oximetry (%) 87 L 09/23/19 15:43 Vitals @ 12:13 BP: 101/64 HR: 90 O2: 99% Findings/Remarks: Patient was found to be staring and unresponsive by nursing when rapid was called at 12:13. Patient responded to noxious stimuli. No further orders were needed. Cardiac exam was S1, S2, no MRG, and lungs CTAB. Patient was at baseline activity. Labs: CBC, BMP 09/24/19 08:10 09/24/19 08:10
--- NOTE | 2019-09-24 13:46 | PN ---
Progress Note, Physician History of Present Illness: Pt seen and examined at bedside. He is awake and alert. He denies shortness of breath. - Current Medication List Current Medications: Active Medications Acetaminophen (Tylenol -) 650 mg PO Q6H PRN PRN Reason: FEVER Last Admin: 09/23/19 21:40 Dose: 650 mg Carvedilol (Coreg -) 6.25 mg PO BID [facility] Last Admin: 09/24/19 10:28 Dose: 6.25 mg Diphenhydramine HCl (Benadryl -) 25 mg PO HS PRN PRN Reason: INSOMNIA Donepezil HCl (Aricept -) 10 mg PO DAILY [facility] Last Admin: 09/24/19 10:28 Dose: 10 mg Heparin Sodium (Porcine) (Heparin -) 5,000 unit SQ TID [facility] Last Admin: 09/24/19 06:03 Dose: 5,000 unit Hydralazine HCl (Apresoline -) 25 mg PO BID [facility] Last Admin: 09/24/19 10:28 Dose: 25 mg Cefazolin Sodium 1 gm/ (Dextrose) 50 mls @ 100 mls/hr IVPB DAILY [facility] Last Admin: 09/24/19 10:26 Dose: 100 mls/hr Insulin Aspart (Novolog Vial Sliding Scale -) 1 vial SQ HS [facility]; Protocol Last Admin: 09/23/19 21:38 Dose: Not Given Insulin Aspart (Novolog Vial Sliding Scale -) 1 vial SQ TIDAC [facility]; Protocol Last Admin: 09/24/19 12:22 Dose: 4 units Insulin Detemir (Levemir Vial) 4 units SQ HS [facility] Last Admin: 09/23/19 21:36 Dose: 4 units Isosorbide Dinitrate (Isordil -) 20 mg PO BIDISORDIL [facility] Last Admin: 09/24/19 10:27 Dose: 20 mg Levothyroxine Sodium (Synthroid -) 125 mcg PO DAILY@0700 [facility] Last Admin: 09/24/19 06:03 Dose: 125 mcg Losartan Potassium (Cozaar -) 25 mg PO DAILY [facility] Last Admin: 09/24/19 10:28 Dose: 25 mg Melatonin (Melatonin) 10 mg PO HS [facility] Last Admin: 09/23/19 21:36 Dose: 10 mg Pantoprazole Sodium (Protonix -) 40 mg PO DAILY [facility] Last Admin: 09/24/19 10:28 Dose: 40 mg - Objective Vital Signs: Vital Signs Temperature 97.9 F 09/24/19 10:00 Pulse Rate 83 09/24/19 10:00 Respiratory Rate 20 09/24/19 10:00 Blood Pressure 114/78 09/24/19 10:00 O2 Sat by Pulse Oximetry (%) 87 L 09/23/19 15:43 Constitutional: Yes: Calm Eyes: Yes: Conjunctiva Clear HENT: Yes: Atraumatic Cardiovascular: Yes: S1, S2 Respiratory: Yes: CTA Bilaterally Gastrointestinal: Yes: Normal Bowel Sounds, Soft Genitourinary: Yes: WNL Musculoskeletal: Yes: WNL Edema: Yes Edema: LLE: Trace, RLE: Trace Neurological: Yes: Oriented Labs: CBC, BMP 09/24/19 08:10 09/24/19 08:10 INR, PTT INR 1.08 (0.83-1.09) 09/08/19 13:33 Problem List - Problems (1) Cellulitis of right foot Code(s): L03.115 - CELLULITIS OF RIGHT LOWER LIMB (2) Diabetes Code(s): E11.9 - TYPE 2 DIABETES MELLITUS WITHOUT COMPLICATIONS Qualifiers: Diabetes mellitus type: type 2 Chronic kidney disease stage: on chronic dialysis (3) ESRD (end stage renal disease) Code(s): N18.6 - END STAGE RENAL DISEASE (4) HTN (hypertension) Code(s): I10 - ESSENTIAL (PRIMARY) HYPERTENSION (5) Hypothyroid Code(s): E03.9 - HYPOTHYROIDISM, UNSPECIFIED Qualifiers: Hypothyroidism type: unspecified Qualified Code(s): E03.9 - Hypothyroidism , unspecified Assessment/Plan Current Medications Generic Name Dose Route Start Last Admin Trade Name Freq PRN Reason Stop Dose Admin Acetaminophen 650 mg 09/20/19 17:29 09/23/19 21:40 Tylenol - PO 650 mg Q6H PRN Administration FEVER Carvedilol 6.25 mg 09/22/19 11:50 09/24/19 10:28 Coreg - PO 6.25 mg BID [facility] Administration Diphenhydramine HCl 25 mg 09/20/19 17:29 Benadryl - PO HS PRN INSOMNIA Donepezil HCl 10 mg 09/21/19 10:00 09/24/19 10:28 Aricept - PO 10 mg DAILY [facility] Administration Heparin Sodium (Porcine) 5,000 unit 09/20/19 22:00 09/24/19 06:03 Heparin - SQ 5,000 unit TID [facility] Administration Hydralazine HCl 25 mg 09/20/19 22:00 09/24/19 10:28 Apresoline - PO 25 mg BID [facility] Administration Cefazolin Sodium 1 gm/ 50 mls @ 100 mls/hr 09/21/19 10:00 09/24/19 10:26 Dextrose IVPB 100 mls/hr DAILY [facility] Administration Insulin Aspart 1 vial 09/20/19 22:00 09/23/19 21:38 Novolog Vial Sliding Scale - SQ Not Given HS [facility] Protocol Insulin Aspart 1 vial 09/21/19 07:00 09/24/19 12:22 Novolog Vial Sliding Scale - SQ 4 units TIDAC [facility] Administration Protocol Insulin Detemir 4 units 09/22/19 22:00 09/23/19 21:36 Levemir Vial SQ 4 units HS [facility] Administration Isosorbide Dinitrate 20 mg 09/20/19 18:00 09/24/19 10:27 Isordil - PO 20 mg BIDISORDIL [facility] Administration Levothyroxine Sodium 125 mcg 09/21/19 07:00 09/24/19 06:03 Synthroid - PO 125 mcg DAILY@0700 [facility] Administration Losartan Potassium 25 mg 09/21/19 10:00 09/24/19 10:28 Cozaar - PO 25 mg DAILY [facility] Administration Melatonin 10 mg 09/20/19 22:00 09/23/19 21:36 Melatonin PO 10 mg HS [facility] Administration Pantoprazole Sodium 40 mg 09/21/19 10:00 09/24/19 10:28 Protonix - PO 40 mg DAILY [facility] Administration Impression 1. ESRD 2. HTN 3. cellulitis 4. DM 5. hypothyroidism 6. hx of CVA 7. cholecystectomy Plan - HD tomorrow - pending placement in HD - will need fistula as outpt - cont arb - renal diet
[2019-09-24 14:38] LABS: ARTERIAL BLD GAS O2 SATURATION 96.6 % (95-98); ARTERIAL BLOOD GAS BASE EXCESS 1.4 meq/l (-2-2); ARTERIAL BLOOD GAS PO2 88.6 mmHg (80-100); ARTERIAL BLOOD GAS pH 7.38 (7.35-7.45)
[2019-09-24 14:44] LABS: ALLENS TEST POSITIVE
--- NOTE | 2019-09-24 15:52 | PN ---
Progress Note, Physician History of Present Illness: Vik Sci PERINATAL BREASTFEEDING ASSISTANT-D interrogated, normal function. Denies chest pain or dyspnea. - Current Medication List Current Medications: Active Medications Acetaminophen (Tylenol -) 650 mg PO Q6H PRN PRN Reason: FEVER Last Admin: 09/23/19 21:40 Dose: 650 mg Carvedilol (Coreg -) 6.25 mg PO BID [facility] Last Admin: 09/24/19 10:28 Dose: 6.25 mg Diphenhydramine HCl (Benadryl -) 25 mg PO HS PRN PRN Reason: INSOMNIA Donepezil HCl (Aricept -) 10 mg PO DAILY [facility] Last Admin: 09/24/19 10:28 Dose: 10 mg Heparin Sodium (Porcine) (Heparin -) 5,000 unit SQ TID [facility] Last Admin: 09/24/19 14:56 Dose: 5,000 unit Hydralazine HCl (Apresoline -) 25 mg PO BID [facility] Last Admin: 09/24/19 10:28 Dose: 25 mg Cefazolin Sodium 1 gm/ (Dextrose) 50 mls @ 100 mls/hr IVPB DAILY [facility] Last Admin: 09/24/19 10:26 Dose: 100 mls/hr Insulin Aspart (Novolog Vial Sliding Scale -) 1 vial SQ HS [facility]; Protocol Last Admin: 09/23/19 21:38 Dose: Not Given Insulin Aspart (Novolog Vial Sliding Scale -) 1 vial SQ TIDAC [facility]; Protocol Last Admin: 09/24/19 12:22 Dose: 4 units Insulin Detemir (Levemir Vial) 4 units SQ HS [facility] Last Admin: 09/23/19 21:36 Dose: 4 units Isosorbide Dinitrate (Isordil -) 20 mg PO BIDISORDIL [facility] Last Admin: 09/24/19 10:27 Dose: 20 mg Levothyroxine Sodium (Synthroid -) 125 mcg PO DAILY@0700 [facility] Last Admin: 09/24/19 06:03 Dose: 125 mcg Losartan Potassium (Cozaar -) 25 mg PO DAILY [facility] Last Admin: 09/24/19 10:28 Dose: 25 mg Melatonin (Melatonin) 10 mg PO HS [facility] Last Admin: 09/23/19 21:36 Dose: 10 mg Pantoprazole Sodium (Protonix -) 40 mg PO DAILY [facility] Last Admin: 09/24/19 10:28 Dose: 40 mg - Objective Vital Signs: Vital Signs Temperature 97.9 F 09/24/19 10:00 Pulse Rate 83 09/24/19 10:00 Respiratory Rate 20 09/24/19 10:00 Blood Pressure 114/78 09/24/19 10:00 O2 Sat by Pulse Oximetry (%) 87 L 09/23/19 15:43 Constitutional: Yes: No Distress, Calm Neck: Yes: Supple Cardiovascular: Yes: Regular Rate and Rhythm Respiratory: Yes: Regular, CTA Bilaterally Gastrointestinal: Yes: Normal Bowel Sounds, Soft Edema: No Labs: CBC, BMP 09/24/19 08:10 09/24/19 08:10 INR, PTT INR 1.08 (0.83-1.09) 09/08/19 13:33 Problem List - Problems (1) Biventricular ICD (implantable cardioverter-defibrillator) in place Code(s): Z95.810 - PRESENCE OF AUTOMATIC (IMPLANTABLE) CARDIAC DEFIBRILLATOR (2) Cellulitis of right foot Code(s): L03.115 - CELLULITIS OF RIGHT LOWER LIMB (3) Diabetes Code(s): E11.9 - TYPE 2 DIABETES MELLITUS WITHOUT COMPLICATIONS Qualifiers: Diabetes mellitus type: type 2 Chronic kidney disease stage: on chronic dialysis (4) ESRD (end stage renal disease) Code(s): N18.6 - END STAGE RENAL DISEASE (5) HTN (hypertension) Code(s): I10 - ESSENTIAL (PRIMARY) HYPERTENSION (6) Hypothyroid Code(s): E03.9 - HYPOTHYROIDISM, UNSPECIFIED Qualifiers: Hypothyroidism type: unspecified Qualified Code(s): E03.9 - Hypothyroidism , unspecified (7) Cardiomyopathy Code(s): I42.9 - CARDIOMYOPATHY, UNSPECIFIED Qualifiers: Cardiomyopathy type: unspecified Qualified Code(s): I42.9 - Cardiomyopathy , unspecified Assessment/Plan 09/19/2019 Vik Sci PERINATAL BREASTFEEDING ASSISTANT-D interrogated, 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 08/2019 10 beat run of NSVT self- terminated w/o therapy. 09/12/2019 Moderate dilated with severely decreased LVEF 20-25%, preserved wall motion at base, rest of segments severely HK, mod-severe MR, mild TR, pacemaker RV, mild-mod AR, mild ao dilatation 4.1 cm 1. POD#6 Laparoscopic cholecystectomy 2. s/p acute Hypercapneic/Hypoxic Respiratory Failure 3. s/p acute on chronic systolic heart failure 4. Severe cardiomyopathy s/p PERINATAL BREASTFEEDING ASSISTANT/ICD 5. HTN 6. ESRD on HD (//) 7. Rt Foot cellulitis, r/o PAD 8. Type 2 DM 9. Hypothyroidism 10. Dementia PLAN: 1. HD tomorrow and monitor renal function and electrolytes, AVF as outpatient 2. Wound care, antibiotic coverage per ID. 3. Continue Carvedilol 6.25 mg BID and increase Losartan 50 mg QD with uptitrate as hemodynamics tolerate. Continue Isordil 20 mg BID and Hydralazine 25 mg BID 4. Continue post op care
[2019-09-24] MEDS: LOSARTAN POTASSIUM 50 MG TABLET (FP) PO SCH (16:55)
[2019-09-24] MEDS ORDERED: INSULIN (NOVOLOG) ASPART 100 UNITS/ML 10ML VIAL ONE (17:58)
[2019-09-24] MEDS: INSULIN (LEVEMIR) 100 UNITS/ML UNITS SQ SCH (22:02)
[2019-09-24] MEDS: MELATONIN 5 MG TABLETS PO SCH (22:02)
[2019-09-25] MEDS: INSULIN SLIDING SCALE (NOVOLOG) 1 VIAL SQ SCH ×4 (06:17→21:46)
[2019-09-25] MEDS: HEPARIN NA (PORCINE) 5,000 UNITS/ML 1ML VIAL SQ SCH ×3 (06:17→21:42)
[2019-09-25] MEDS: LEVOTHYROXINE NA 125 MCG TABLET (FP) PO SCH (06:17)
[2019-09-25 08:31] LABS: BASO % 1.2 % (0-2.0); EOS % 0.9 % (0-4.5); HEMATOCRIT 34.4 % (35.4-49); HEMOGLOBIN 11.6 GM/dL (11.7-16.9); LYMPH % 21.2 % (8-40); MCH 31.3 pg (25.7-33.7); MCHC 33.6 g/dl (32.0-35.9); MEAN CELL VOLUME 93.1 fl (80-96); MEAN PLT VOLUME 8.7 fl (7.5-11.1); MONO % 6.3 % (3.8-10.2); NEUT % 70.4 % (42.8-82.8); PLATELET COUNT 144 K/MM3 (134-434); RDW 15.1 % (11.9-15.9); WHITE BLOOD COUNT 5.8 K/mm3 (4.0-10.0)
[2019-09-25 09:12] LABS: BLOOD UREA NITROGEN 56.3 mg/dL (7-18); CREATININE 4.6 mg/dL (0.55-1.3); POTASSIUM 3.9 mmol/L (3.5-5.1)
--- NOTE | 2019-09-25 09:27 | SURG ---
Surgery Online Affiliate Marketing Manager Note Online Affiliate Marketing Manager: Félix Hall PA-C Date of Service: 09/17/19 Diagnosis: acute cholecystitis/cholelithiasis Procedure: laproscopic cholecystectomy I was present for the entirety of the operative procedure. For further detail, please refer to operative report.
[2019-09-25] MEDS ORDERED: ceFAZolin SODIUM 1 GM VIAL ONE (10:43)
[2019-09-25] MEDS ORDERED: DEXTROSE 5%-WATER - 50 ML IVPB ONE (10:43)
--- NOTE | 2019-09-25 11:07 | PN ---
Progress Note (short form) - Note Progress Note: Hospitalist Medicine States that he feels well. Mentation appears to be at baseline, per daughter. For HD today Vitals 09/25/19 05:15 Temperature 98.2 F Pulse Rate 63 Respiratory 18 Rate Blood Pressure 113/64 Physical Exam GENERAL: resting in bed, in NAD HEENT: Normal with no signs of trauma, permacath dressing c/d/i LUNGS: Breath sounds equal, clear to auscultation bilaterally. No accessory muscle use. HEART: S1, S2, RRR, no murmur noted. ABDOMEN: Soft, nontender, non distended. Surgical incisions c/d/i EXTREMITIES: 2+ pt pulses, warm, no peripheral edema. NEUROLOGICAL: Alert and oriented x3, would not participate in full neuro exam. SKIN: Warm, dry. Dressing over heel of right foot. c/d/i Laboratory Tests 09/25/19 09/25/19 07:25 07:25 WBC 5.8 Hgb 11.6 L Hct 34.4 L Plt Count 144 Sodium 138 Potassium 3.9 Chloride 102 Carbon Dioxide 28 BUN 56.3 H Creatinine 4.6 H Random Glucose 153 H Microbiology 09/14/19 17:05 Stool Clostridioides difficile Antigen - Final 09/14/19 17:05 Stool Clostridioides difficile Toxin Assay - Final 09/08/19 16:38 Urine - Urine Clean Catch Urine Culture - Final Normal Urogenital [place] 09/08/19 13:35 Blood - Peripheral Venous Blood Culture - Final NO GROWTH AFTER 5 DAYS INCUBATION 09/08/19 13:35 Blood - Peripheral Venous Blood Culture - Final NO GROWTH AFTER 5 DAYS INCUBATION Imaging 09/08 CXR: large heart, folded aorta, L sided PPM, R jugular line with tip in RA , pleural reaction and atelectasis at the right base, with atelectasis in the lingula. no infiltrate. some posterior costophrenic angle blunting 09/08 foot and ankle XR (right): no acute fx. some medial malleolar soft tissue swelling. bunion formation by first MTP. 09/08: R knee xr : (-) for acute abnormality 09/08 R tib/fib xr: no fx or subluxation. there is a fabella, vasc calcifications and posterior calcaneal spurring 09/[address]: (-) 09/08 CTAP: bilateral pleural effusions, cardiomegaly, transvenous PPM in place. bilateral flank subcutaneous edema. small amount of blanquita-hepatic free fluid. mild nonspecific pericolonic soft tissue stranding adjacent to the sigmoid colon. ?possible acute recent diverticulitis. cholelithiasis. 09/11 R hip XR: (+) vascular calcifications noted. 09/11 Rib XR: weak inspiration and congestive and infiltrative changes. PPM and R jugular line. old rib trauma to right rib. acute fx not seen. 09/[address]: (-) 09/11: b/l shoulder XR: (-) 09/12 arterial doppler, CORINA: unable to calculate CORINA bilaterally due to medial calcinosis. R dorsalis pedis artery monophasic wave with blunting of PVR waveforms bilaterally at the ankles and metatarsals most significantly the R metatarsal suggesting infrapopliteal dz with critical dz in the right anterior tibial artery. 09/14: XR flat and upright: gallstones, nonspecific bowel pattern. vasc calcifications. no ileus. congestive changes and bilateral effusions and basilar atelectasis. prominent mediastinum, multilead PPM and central line 09/14: Hip/Pelvis XR: (-) 09/14: abdom sono: R pleural effusion and trace ascites, cholelithiasis, heterogeneous liver with no discrete mass. 09/17: CXR: interval insertion ETT with tip in borderline position, 2cm above liz. no pneumo. interval bibasilar consolidation and aispace disease L>R, small bilateral pleural effusion 09/18: CXR: worse, progressive pulmonary and pleural findings 09/19: CXR: ETT removed. R jugular line and PPM and bilateral pulmonary and pleural changes are again noted. since last study, increased and the right changes have diminished 09/20: CXR: congestive changes with bibasilar pleural effusions, atelectasis and edema in the lungs, minimally improved since 09/18/19. Superimposed PNA is not definitely suspected radiographically. ASSESSMENT/PLAN: 69 y/o/m with PMH significant for HTN, DM, pacemaker, ESRD on dialysis T//S, questionable dementia presented to ED for right foot pain and swelling. Patient was initially being treated for cellulitis, was found to abd RUQ abd pain by daughter. Surgery was consulted and patient had a cholecystectomy done today. Patient not taking appropriate respirations (low Tidal volumes) post-op, decision made by anesthesia to keep patient intubated and sedate overnight for comfort. Now extuabted, POD#2, progressing appropriately. #Neuro -Extubated 09/18 Dementia - C/w Donepezil - CTH (-) for acute path - may be causing waxing and waning consciousness; at baseline per Starla horn #Cardio - Hx HTN, hx EXCEL EXPERT/ICD acute on chronic systolic HF -c/w Carvedilol to 6.25 mg BID and Losartan 50 mg QD -c/w isosordil, hydralazine - ECHO w/ systolic dysfnc EF 20-25% - Severe cardiomyopathy s/p EXCEL EXPERT/ICD - Vik Sci EXCEL EXPERT-D interrogated, normal function. -Cardio: Dr. Day #Pulm -Acute Hypercapneic/Hypoxic Respiratory Failure -has improved -sat well on 3L NC, wean as tolerated -Maintain SpO2 >92% #Renal - ESRD on HD - HD tomorrow (09/25) -monitor BP on ARB - will need fistula as an outpt - Nephro: Dr. Dubose #GI s/p lap jody (09/17) -U/S on 09/14 showed cholelithiasis without evidence of intra or extrahepatic biliary duct dilation. gallbladder slightly thickened -GI on board: Dr. Julia Pete #Endo - DM - BGMs, ISS ACHS Levemir 4 units daily at HS. Hold when FS <140 - Endocrine: Dr. Barboza -Hypothroidism - -c/w synthroid #ID - R foot cellulitis - Continue Cefazolin as per ID (09/21) - afebrile, w/o leukocytosis currently - c/t monitor blood cx, ucx #FEN avoid IVF as HD pt, unless needed continue to follow lytes renal diet #PPX - GI PPX: Protonix - DVT PPX: SCDs #Disposition cont'd monitoring on med-surg needs rehab. Plan is to dc to [place]. will need pre and post on d/c will need outpt HD set up, pending [facility] - will need fistula as outpt -per daughterStarla- goal is to have pt living independently w/ home help via aid <Tracey King - Last Filed: 09/25/19 18:04> - Note Progress Note: Seen and examined; I agree with the above documentation as outlined by the resident aside from as supplemented by myself below. All historical and roach PE findings along side diagnostics independently verified. Case was discussed at length with the resident team. All questions were answered. No other events reported; continues to remain on medicine service transferred from Dr. Curtis's service. He is stable and has no new complaints, denying chest pain, SOB, etc. He is pending DC coordination and remains medically stable. 10 sys ROS done and negative aside from HPI NAD AAO resting in bed NC AT EOMI PERRLA HR wnl, +s1/2 Lungs without focal crackles, rales; w/ sym exp NT ND +BS CN2-12 wnl, no fnd Normal mood, appropriate behavior 09/19/2019 Vik Sci EXCEL EXPERT-D interrogated, 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 08/2019 10 beat run of NSVT self- terminated w/o therapy. 09/12/2019 Moderate dilated with severely decreased LVEF 20-25%, preserved wall motion at base, rest of segments severely HK, mod-severe MR, mild TR, pacemaker RV, mild-mod AR, mild ao dilatation 4.1 cm A/P: Continues to be pending DC approvals. He presented to the hospital with RUQ pain and was found to have cholecystitis and was treated surgically and had a difficult etubation and was kept in ICU. He was transferred to our service and has done well since. He has ESRD on TTS HD and needs OP services and placement coordinated. He is stable on his current medications. He has an exceptionally complex medical history. Problems include: -Acute respiratory failure (remains resolved; status post intubation) -Severe HFrEF 2/2 ischemic CM (c/w Carvedilol, Losartan, isosordil, hydralazine. Management per Dr. Day. Had a negative interrogation of AICD. Echo 20-25%. No plans for advanced devices, etc.) -ESRD on HD (set up OP HD services, FU with Dr. Dubose, OP fistula placement) -HTN (Stable) -Cellulitis (Was on abx per ID; -Hx DM (continue current management; monitoring AC+HS fsg) -Hx CVA (Noted; continue home meds. No change in neuro exam) -History of dementia (continue donepezil; alzheimer type with likely vascular component) -Status Post Cholecystectomy (No issues postop, no wound infection, FU OP with sgy.) -Hx hypothyroidism (no s/s myxedema; FU OP TSH and continue current management) <Zeferino Moore - Last Filed: 09/27/19 07:27>
--- NOTE | 2019-09-25 11:52 | PN ---
Progress Note, Physician Chief Complaint: Not in distress Being dialyzed History of Present Illness: Patient was seen and examined. Awake and alert. Chart was reviewed Denies chest pain, SOB or palpitations - Current Medication List Current Medications: Active Medications Acetaminophen (Tylenol -) 650 mg PO Q6H PRN PRN Reason: FEVER Last Admin: 09/23/19 21:40 Dose: 650 mg Carvedilol (Coreg -) 6.25 mg PO BID [facility] Last Admin: 09/24/19 22:03 Dose: 6.25 mg Diphenhydramine HCl (Benadryl -) 25 mg PO HS PRN PRN Reason: INSOMNIA Donepezil HCl (Aricept -) 10 mg PO DAILY [facility] Last Admin: 09/24/19 10:28 Dose: 10 mg Heparin Sodium (Porcine) (Heparin -) 5,000 unit SQ TID [facility] Last Admin: 09/25/19 06:17 Dose: 5,000 unit Hydralazine HCl (Apresoline -) 25 mg PO BID [facility] Last Admin: 09/24/19 22:03 Dose: 25 mg Cefazolin Sodium 1 gm/ (Dextrose) 50 mls @ 100 mls/hr IVPB DAILY [facility] Last Admin: 09/24/19 10:26 Dose: 100 mls/hr Insulin Aspart (Novolog Vial Sliding Scale -) 1 vial SQ HS [facility]; Protocol Last Admin: 09/24/19 22:04 Dose: Not Given Insulin Aspart (Novolog Vial Sliding Scale -) 1 vial SQ TIDAC [facility]; Protocol Last Admin: 09/25/19 06:17 Dose: 2 units Insulin Detemir (Levemir Vial) 4 units SQ HS [facility] Last Admin: 09/24/19 22:02 Dose: 4 units Isosorbide Dinitrate (Isordil -) 20 mg PO BIDISORDIL [facility] Last Admin: 09/24/19 17:42 Dose: 20 mg Levothyroxine Sodium (Synthroid -) 125 mcg PO DAILY@0700 [facility] Last Admin: 09/25/19 06:17 Dose: 125 mcg Losartan Potassium (Cozaar -) 50 mg PO DAILY [facility] Last Admin: 09/24/19 16:55 Dose: 50 mg Melatonin (Melatonin) 10 mg PO HS [facility] Last Admin: 09/24/19 22:02 Dose: 10 mg Pantoprazole Sodium (Protonix -) 40 mg PO DAILY [facility] Last Admin: 09/24/19 10:28 Dose: 40 mg - Objective Vital Signs: Vital Signs Temperature 97.9 F L 09/25/19 09:00 Pulse Rate 65 09/25/19 09:00 Respiratory Rate 24 H 09/25/19 09:00 Blood Pressure 107/65 09/25/19 09:00 O2 Sat by Pulse Oximetry (%) 87 L 09/23/19 15:43 Eyes: Yes: PERRL HENT: Yes: Atraumatic Neck: Yes: Supple Cardiovascular: Yes: Regular Rate and Rhythm, S1, S2 Respiratory: Yes: CTA Bilaterally Gastrointestinal: Yes: Normal Bowel Sounds, Soft. No: Tenderness Edema: No Labs: CBC, BMP 09/25/19 07:25 09/25/19 07:25 Problem List - Problems (1) Biventricular ICD (implantable cardioverter-defibrillator) in place Code(s): Z95.810 - PRESENCE OF AUTOMATIC (IMPLANTABLE) CARDIAC DEFIBRILLATOR (2) Cardiomyopathy Code(s): I42.9 - CARDIOMYOPATHY, UNSPECIFIED Qualifiers: Cardiomyopathy type: unspecified Qualified Code(s): I42.9 - Cardiomyopathy , unspecified (3) Cellulitis of right foot Code(s): L03.115 - CELLULITIS OF RIGHT LOWER LIMB (4) Diabetes Code(s): E11.9 - TYPE 2 DIABETES MELLITUS WITHOUT COMPLICATIONS Qualifiers: Diabetes mellitus type: type 2 Chronic kidney disease stage: on chronic dialysis (5) ESRD (end stage renal disease) Code(s): N18.6 - END STAGE RENAL DISEASE (6) HTN (hypertension) Code(s): I10 - ESSENTIAL (PRIMARY) HYPERTENSION Qualifiers: Hypertension type: essential hypertension Qualified Code(s): I10 - Essential (primary) hypertension (7) Hypothyroid Code(s): E03.9 - HYPOTHYROIDISM, UNSPECIFIED Qualifiers: Hypothyroidism type: unspecified Qualified Code(s): E03.9 - Hypothyroidism , unspecified (8) Right foot pain Code(s): M79.671 - PAIN IN RIGHT FOOT (9) Cholelithiasis Code(s): K80.20 - CALCULUS OF GALLBLADDER W/O CHOLECYSTITIS W/O OBSTRUCTION Assessment/Plan 1. Post Laparoscopic cholecystectomy 2. Acute Hypercapneic/Hypoxic Respiratory Failure 3. Acute on chronic systolic heart failure 4. 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 HTN 6. ESRD on HD (T//) 7. Rt Foot cellulitis, r/o PAD 8. Type 2 DM 9. Hypothyroidism 10. Dementia PLAN: 1. HD now and monitor renal function and electrolytes 2. Wound care and antibiotic coverage per ID. 3. Continue Carvedilol 6.25 mg BID and Losartan 25 mg QD with uptitrate as hemodynamics tolerate. Continue Isordil 20 mg BID and Hydralazine 25 mg BID 4. Continue post op care Olman Pina MD
--- NOTE | 2019-09-25 14:59 | PN ---
Progress Note (short form) - Note Progress Note: Seen during dialysis Denies any complaints Vital Signs Period Temp Pulse Resp BP Sys/Palacios Pulse Ox Last 24 Hr -97.9 F-98.6 F 60-94 18-24 107-124/64-74 95 PE Awake alert Neck: Supple, No JVD Lungs: CTA CVS: s1S2 Abd: Sofr NT Ext: No edema Neuro: No focal deficit CMP Sodium 138 mmol/L (136-145) 09/25/19 07:25 Potassium 3.9 mmol/L (3.5-5.1) 09/25/19 07:25 Chloride 102 mmol/L (98-107) 09/25/19 07:25 Carbon Dioxide 28 mmol/L (21-32) 09/25/19 07:25 Anion Gap 8 MMOL/L (8-16) 09/25/19 07:25 BUN 56.3 mg/dL (7-18) H 09/25/19 07:25 Creatinine 4.6 mg/dL (0.55-1.3) H 09/25/19 07:25 Est GFR (CKD-EPI)AfAm 13.90 09/25/19 07:25 Est GFR (CKD-EPI)NonAf 12.00 09/25/19 07:25 POC Glucometer 171 UNITS (80-120) 09/25/19 06:15 Random Glucose 153 mg/dL (74-106) H 09/25/19 07:25 Hemoglobin A1c % 7.2 % (4.2-6.3) H 09/09/19 15:00 Calcium 8.0 mg/dL (8.5-10.1) L 09/25/19 07:25 Phosphorus 4.0 mg/dL (2.5-4.9) 09/25/19 07:25 Magnesium 2.0 mg/dL (1.8-2.4) 09/25/19 07:25 Total Bilirubin 0.4 mg/dL (0.2-1) 09/21/19 06:40 AST 28 U/L (15-37) 09/21/19 06:40 ALT 6 U/L (13-61) L 09/21/19 06:40 Alkaline Phosphatase 132 U/L (45-117) H 09/21/19 06:40 Ammonia 24.90 umol/L (11-32) 09/24/19 14:45 Creatine Kinase 143 U/L (26-308) 09/10/19 20:45 Creatine Kinase Index 1.3 % (0.0-5.0) 09/08/19 12:55 CK-MB (CK-2) 5.0 ng/mL (0.5-3.6) H 09/08/19 12:55 Troponin I 0.17 ng/ml (0.00-0.05) H 09/11/19 16:13 Total Protein 5.4 g/dl (6.4-8.2) L 09/21/19 06:40 Albumin 2.0 g/dl (3.4-5.0) L 09/21/19 06:40 Triglycerides 120 mg/dL (0-150) 09/09/19 04:26 Cholesterol 94 mg/dL (50-200) 09/09/19 04:26 Total LDL Cholesterol 45 mg/dL (5-100) 09/09/19 04:26 HDL Cholesterol 37 mg/dL (40-60) L 09/09/19 04:26 TSH 3.73 uIU/ml (0.358-3.74) 09/09/19 04:26 Current Medications Generic Name Dose Route Start Last Admin Trade Name Freq PRN Reason Stop Dose Admin Acetaminophen 650 mg 09/20/19 17:29 09/23/19 21:40 Tylenol - PO 650 mg Q6H PRN Administration FEVER Carvedilol 6.25 mg 09/22/19 11:50 09/24/19 22:03 Coreg - PO 6.25 mg BID [facility] Administration Diphenhydramine HCl 25 mg 09/20/19 17:29 Benadryl - PO HS PRN INSOMNIA Donepezil HCl 10 mg 09/21/19 10:00 09/24/19 10:28 Aricept - PO 10 mg DAILY [facility] Administration Heparin Sodium (Porcine) 5,000 unit 09/20/19 22:00 09/25/19 06:17 Heparin - SQ 5,000 unit TID [facility] Administration Hydralazine HCl 25 mg 09/20/19 22:00 09/24/19 22:03 Apresoline - PO 25 mg BID [facility] Administration Cefazolin Sodium 1 gm/ 50 mls @ 100 mls/hr 09/21/19 10:00 09/24/19 10:26 Dextrose IVPB 100 mls/hr DAILY [facility] Administration Insulin Aspart 1 vial 09/20/19 22:00 09/24/19 22:04 Novolog Vial Sliding Scale - SQ Not Given HS [facility] Protocol Insulin Aspart 1 vial 09/21/19 07:00 09/25/19 06:17 Novolog Vial Sliding Scale - SQ 2 units TIDAC [facility] Administration Protocol Insulin Detemir 4 units 09/22/19 22:00 09/24/19 22:02 Levemir Vial SQ 4 units HS [facility] Administration Isosorbide Dinitrate 20 mg 09/20/19 18:00 09/24/19 17:42 Isordil - PO 20 mg BIDISORDIL [facility] Administration Levothyroxine Sodium 125 mcg 09/21/19 07:00 09/25/19 06:17 Synthroid - PO 125 mcg DAILY@0700 [facility] Administration Losartan Potassium 50 mg 09/24/19 16:00 09/24/19 16:55 Cozaar - PO 50 mg DAILY [facility] Administration Melatonin 10 mg 09/20/19 22:00 09/24/19 22:02 Melatonin PO 10 mg HS [facility] Administration Pantoprazole Sodium 40 mg 09/21/19 10:00 09/24/19 10:28 Protonix - PO 40 mg DAILY [facility] Administration AP: S/P Respiratory failure Cholecystitis Rt Foot cellulitis T2DM Hypothyroidism ESRD Off Glimepiride b/o increase risk of hypoglycemia with long acting Sulfonylurea in pt on HD. BGM Q ACHS. To give 100 KCal snack when FS <100 or D50 if FS <60 Continue Levemir 4 units daily at HS. Hold when FS <140 Novolog SS coverage premeals and HS Abx as per ID Will f/u
[2019-09-25] MEDS: CEFAZOLIN 1 GM in DEXTROSE 5%-WATER - 50 ML IVPB SCH (15:13)
[2019-09-25] MEDS: DONEPEZIL HCL 10 MG TABLET (FP) PO SCH (15:14)
[2019-09-25] MEDS: hydrALAZINE HCL 25 MG TABLET (FP) PO SCH ×2 (15:14→21:41)
[2019-09-25] MEDS: PANTOPRAZOLE 40 MG TABLET (FP) PO SCH (15:15)
[2019-09-25] MEDS: CARVEDILOL 6.25 MG TABLET (FP) PO SCH ×2 (15:15→21:41)
[2019-09-25] MEDS: LOSARTAN POTASSIUM 50 MG TABLET (FP) PO SCH (15:15)
[2019-09-25] MEDS: ISOSORBIDE DINITRATE 20 MG TABLET (FP) PO SCH ×2 (15:20→18:02)
--- NOTE | 2019-09-25 15:37 | PN ---
Progress Note, Physician History of Present Illness: Pt seen and examined at bedside. He is awake and alert. Events from yesterday noted. - Current Medication List Current Medications: Active Medications Acetaminophen (Tylenol -) 650 mg PO Q6H PRN PRN Reason: FEVER Last Admin: 09/23/19 21:40 Dose: 650 mg Carvedilol (Coreg -) 6.25 mg PO BID [facility] Last Admin: 09/25/19 15:15 Dose: 6.25 mg Diphenhydramine HCl (Benadryl -) 25 mg PO HS PRN PRN Reason: INSOMNIA Donepezil HCl (Aricept -) 10 mg PO DAILY [facility] Last Admin: 09/25/19 15:14 Dose: 10 mg Heparin Sodium (Porcine) (Heparin -) 5,000 unit SQ TID [facility] Last Admin: 09/25/19 15:21 Dose: 5,000 unit Hydralazine HCl (Apresoline -) 25 mg PO BID [facility] Last Admin: 09/25/19 15:14 Dose: 25 mg Cefazolin Sodium 1 gm/ (Dextrose) 50 mls @ 100 mls/hr IVPB DAILY [facility] Last Admin: 09/25/19 15:13 Dose: 100 mls/hr Insulin Aspart (Novolog Vial Sliding Scale -) 1 vial SQ HS [facility]; Protocol Last Admin: 09/24/19 22:04 Dose: Not Given Insulin Aspart (Novolog Vial Sliding Scale -) 1 vial SQ TIDAC [facility]; Protocol Last Admin: 09/25/19 15:21 Dose: Not Given Insulin Detemir (Levemir Vial) 4 units SQ HS [facility] Last Admin: 09/24/19 22:02 Dose: 4 units Isosorbide Dinitrate (Isordil -) 20 mg PO BIDISORDIL [facility] Last Admin: 09/25/19 15:20 Dose: 20 mg Levothyroxine Sodium (Synthroid -) 125 mcg PO DAILY@0700 [facility] Last Admin: 09/25/19 06:17 Dose: 125 mcg Losartan Potassium (Cozaar -) 50 mg PO DAILY [facility] Last Admin: 09/25/19 15:15 Dose: 50 mg Melatonin (Melatonin) 10 mg PO HS [facility] Last Admin: 09/24/19 22:02 Dose: 10 mg Pantoprazole Sodium (Protonix -) 40 mg PO DAILY [facility] Last Admin: 09/25/19 15:15 Dose: 40 mg - Objective Vital Signs: Vital Signs Temperature 98.0 F 09/25/19 15:28 Pulse Rate 70 09/25/19 15:28 Respiratory Rate 18 09/25/19 15:28 Blood Pressure 139/78 09/25/19 15:28 O2 Sat by Pulse Oximetry (%) 95 09/25/19 09:00 Constitutional: Yes: Calm Eyes: Yes: Conjunctiva Clear HENT: Yes: Atraumatic Neck: Yes: Supple Cardiovascular: Yes: S1, S2 Respiratory: Yes: On Nasal O2 Gastrointestinal: Yes: Soft Genitourinary: Yes: WNL Musculoskeletal: Yes: WNL Edema: Yes Edema: LLE: Trace, RLE: Trace Neurological: Yes: Oriented Psychiatric: Yes: Oriented Labs: CBC, BMP 09/25/19 07:25 09/25/19 07:25 INR, PTT INR 1.08 (0.83-1.09) 09/08/19 13:33 Problem List - Problems (1) Cellulitis of right foot Code(s): L03.115 - CELLULITIS OF RIGHT LOWER LIMB (2) Diabetes Code(s): E11.9 - TYPE 2 DIABETES MELLITUS WITHOUT COMPLICATIONS Qualifiers: Diabetes mellitus type: type 2 Chronic kidney disease stage: on chronic dialysis (3) ESRD (end stage renal disease) Code(s): N18.6 - END STAGE RENAL DISEASE (4) HTN (hypertension) Code(s): I10 - ESSENTIAL (PRIMARY) HYPERTENSION Qualifiers: Hypertension type: essential hypertension Qualified Code(s): I10 - Essential (primary) hypertension (5) Hypothyroid Code(s): E03.9 - HYPOTHYROIDISM, UNSPECIFIED Qualifiers: Hypothyroidism type: unspecified Qualified Code(s): E03.9 - Hypothyroidism , unspecified Assessment/Plan Current Medications Generic Name Dose Route Start Last Admin Trade Name Freq PRN Reason Stop Dose Admin Acetaminophen 650 mg 09/20/19 17:29 09/23/19 21:40 Tylenol - PO 650 mg Q6H PRN Administration FEVER Carvedilol 6.25 mg 09/22/19 11:50 09/25/19 15:15 Coreg - PO 6.25 mg BID [facility] Administration Diphenhydramine HCl 25 mg 09/20/19 17:29 Benadryl - PO HS PRN INSOMNIA Donepezil HCl 10 mg 09/21/19 10:00 09/25/19 15:14 Aricept - PO 10 mg DAILY [facility] Administration Heparin Sodium (Porcine) 5,000 unit 09/20/19 22:00 09/25/19 15:21 Heparin - SQ 5,000 unit TID [facility] Administration Hydralazine HCl 25 mg 09/20/19 22:00 09/25/19 15:14 Apresoline - PO 25 mg BID [facility] Administration Cefazolin Sodium 1 gm/ 50 mls @ 100 mls/hr 09/21/19 10:00 09/25/19 15:13 Dextrose IVPB 100 mls/hr DAILY [facility] Administration Insulin Aspart 1 vial 09/20/19 22:00 09/24/19 22:04 Novolog Vial Sliding Scale - SQ Not Given HS [facility] Protocol Insulin Aspart 1 vial 09/21/19 07:00 09/25/19 15:21 Novolog Vial Sliding Scale - SQ Not Given TIDAC [facility] Protocol Insulin Detemir 4 units 09/22/19 22:00 09/24/19 22:02 Levemir Vial SQ 4 units HS [facility] Administration Isosorbide Dinitrate 20 mg 09/20/19 18:00 09/25/19 15:20 Isordil - PO 20 mg BIDISORDIL [facility] Administration Levothyroxine Sodium 125 mcg 09/21/19 07:00 09/25/19 06:17 Synthroid - PO 125 mcg DAILY@0700 [facility] Administration Losartan Potassium 50 mg 09/24/19 16:00 09/25/19 15:15 Cozaar - PO 50 mg DAILY [facility] Administration Melatonin 10 mg 09/20/19 22:00 09/24/19 22:02 Melatonin PO 10 mg HS [facility] Administration Pantoprazole Sodium 40 mg 09/21/19 10:00 09/25/19 15:15 Protonix - PO 40 mg DAILY [facility] Administration Impression 1. ESRD 2. HTN 3. cellulitis 4. DM 5. hypothyroidism 6. hx of CVA 7. cholecystectomy Plan - HD today - pts mental status appears to be at baseline - pending placement in HD - will need fistula as outpt - cont arb - renal diet
[2019-09-25] MEDS: MELATONIN 5 MG TABLETS PO SCH (21:41)
[2019-09-25] MEDS: INSULIN (LEVEMIR) 100 UNITS/ML UNITS SQ SCH (21:47)
[2019-09-26] MEDS: HEPARIN NA (PORCINE) 5,000 UNITS/ML 1ML VIAL SQ SCH ×3 (05:54→21:07)
[2019-09-26] MEDS: LEVOTHYROXINE NA 125 MCG TABLET (FP) PO SCH (06:15)
[2019-09-26] MEDS: INSULIN SLIDING SCALE (NOVOLOG) 1 VIAL SQ SCH ×4 (06:15→21:08)
[2019-09-26] MEDS ORDERED: INSULIN (NOVOLOG) ASPART 100 UNITS/ML 10ML VIAL ONE ×2 (06:40→12:10)
[2019-09-26] MEDS ORDERED: DEXTROSE 5%-WATER - 50 ML IVPB ONE (09:16)
[2019-09-26] MEDS ORDERED: ceFAZolin SODIUM 1 GM VIAL ONE (09:16)
[2019-09-26] MEDS: DONEPEZIL HCL 10 MG TABLET (FP) PO SCH (09:22)
[2019-09-26] MEDS: CARVEDILOL 6.25 MG TABLET (FP) PO SCH ×2 (09:22→21:08)
[2019-09-26] MEDS: LOSARTAN POTASSIUM 50 MG TABLET (FP) PO SCH (09:22)
[2019-09-26] MEDS: CEFAZOLIN 1 GM in DEXTROSE 5%-WATER - 50 ML IVPB SCH (09:22)
[2019-09-26] MEDS: PANTOPRAZOLE 40 MG TABLET (FP) PO SCH (09:22)
[2019-09-26] MEDS: hydrALAZINE HCL 25 MG TABLET (FP) PO SCH ×2 (09:22→21:08)
[2019-09-26] MEDS: ISOSORBIDE DINITRATE 20 MG TABLET (FP) PO SCH ×2 (09:24→17:14)
[2019-09-26 09:26] LABS: BLOOD UREA NITROGEN 35.9 mg/dL (7-18); CALCIUM 8.3 mg/dL (8.5-10.1); CREATININE 3.4 mg/dL (0.55-1.3); PHOSPHOROUS 3.3 mg/dL (2.5-4.9); POTASSIUM 4.2 mmol/L (3.5-5.1)
--- NOTE | 2019-09-26 10:24 | PN ---
Progress Note (short form) - Note Progress Note: Hospitalist Medicine Content, without complaint. Vitals 09/26/19 05:20 Temperature 98.0 F Pulse Rate 59 L Respiratory 20 Rate Blood Pressure 118/71 Physical Exam GENERAL: resting in bed, in NAD HEENT: Normal with no signs of trauma, permacath dressing c/d/i LUNGS: Breath sounds equal, clear to auscultation bilaterally. No accessory muscle use. HEART: S1, S2, RRR, no murmur noted. ABDOMEN: Soft, nontender, non distended. Surgical incisions c/d/i EXTREMITIES: 2+ pt pulses, warm, no peripheral edema. NEUROLOGICAL: Alert and oriented x3, able to move UE, LE. SKIN: Warm, dry. Dressing over heel of right foot. c/d/i Laboratory Tests 09/26/19 07:50 Sodium 138 Potassium 4.2 Chloride 103 Carbon Dioxide 28 BUN 35.9 H Creatinine 3.4 H Random Glucose 132 H Microbiology 09/14/19 17:05 Stool Clostridioides difficile Antigen - Final 09/14/19 17:05 Stool Clostridioides difficile Toxin Assay - Final 09/08/19 16:38 Urine - Urine Clean Catch Urine Culture - Final Normal Urogenital [place] 09/08/19 13:35 Blood - Peripheral Venous Blood Culture - Final NO GROWTH AFTER 5 DAYS INCUBATION 09/08/19 13:35 Blood - Peripheral Venous Blood Culture - Final NO GROWTH AFTER 5 DAYS INCUBATION Imaging 09/08 CXR: large heart, folded aorta, L sided PPM, R jugular line with tip in RA , pleural reaction and atelectasis at the right base, with atelectasis in the lingula. no infiltrate. some posterior costophrenic angle blunting 09/08 foot and ankle XR (right): no acute fx. some medial malleolar soft tissue swelling. bunion formation by first MTP. 09/08: R knee xr : (-) for acute abnormality 09/08 R tib/fib xr: no fx or subluxation. there is a fabella, vasc calcifications and posterior calcaneal spurring 09/[address]: (-) 09/08 CTAP: bilateral pleural effusions, cardiomegaly, transvenous PPM in place. bilateral flank subcutaneous edema. small amount of blanquita-hepatic free fluid. mild nonspecific pericolonic soft tissue stranding adjacent to the sigmoid colon. ?possible acute recent diverticulitis. cholelithiasis. 09/11 R hip XR: (+) vascular calcifications noted. 09/11 Rib XR: weak inspiration and congestive and infiltrative changes. PPM and R jugular line. old rib trauma to right rib. acute fx not seen. 09/[address]: (-) 09/11: b/l shoulder XR: (-) 09/12 arterial doppler, CORINA: unable to calculate CORINA bilaterally due to medial calcinosis. R dorsalis pedis artery monophasic wave with blunting of PVR waveforms bilaterally at the ankles and metatarsals most significantly the R metatarsal suggesting infrapopliteal dz with critical dz in the right anterior tibial artery. 09/14: XR flat and upright: gallstones, nonspecific bowel pattern. vasc calcifications. no ileus. congestive changes and bilateral effusions and basilar atelectasis. prominent mediastinum, multilead PPM and central line 09/14: Hip/Pelvis XR: (-) 09/14: abdom sono: R pleural effusion and trace ascites, cholelithiasis, heterogeneous liver with no discrete mass. 09/17: CXR: interval insertion ETT with tip in borderline position, 2cm above liz. no pneumo. interval bibasilar consolidation and aispace disease L>R, small bilateral pleural effusion 09/18: CXR: worse, progressive pulmonary and pleural findings 09/19: CXR: ETT removed. R jugular line and PPM and bilateral pulmonary and pleural changes are again noted. since last study, increased and the right changes have diminished 09/20: CXR: congestive changes with bibasilar pleural effusions, atelectasis and edema in the lungs, minimally improved since 09/18/19. Superimposed PNA is not definitely suspected radiographically. ASSESSMENT/PLAN: 69 y/o/m with PMH significant for HTN, DM, pacemaker, ESRD on dialysis T//S, questionable dementia presented to ED for right foot pain and swelling. Patient was initially being treated for cellulitis, was found to abd RUQ abd pain by daughter. Surgery was consulted and patient had a cholecystectomy done today. Patient not taking appropriate respirations (low Tidal volumes) post-op, decision made by anesthesia to keep patient intubated and sedate overnight for comfort. Now extuabted, POD#2, progressing appropriately. #Neuro -Extubated 09/18 Dementia - C/w Donepezil - CTH (-) for acute path - may be causing waxing and waning consciousness; at baseline per daughterStarla #Cardio - Hx HTN, hx INFANT ROOM TEACHER/ICD acute on chronic systolic HF Severe cardiomyopathy s/p INFANT ROOM TEACHER/ICD -c/w Carvedilol to 6.25 mg BID and Losartan 50 mg QD -c/w isosordil, hydralazine - ECHO w/ systolic dysfnc EF 20-25% - Vik Sci INFANT ROOM TEACHER-D interrogated, normal function. -Cardio: Dr. Day #Pulm -Acute Hypercapneic/Hypoxic Respiratory Failure -has improved -sat well on 3L NC, wean as tolerated -Maintain SpO2 >92% -needs pre and post on d/c #Renal - ESRD on HD - HD per renal ; next session early tomorrow (09/27) -monitor BP on ARB - will need fistula as an outpt - Nephro: Dr. Dubose #GI s/p lap jody (09/17) -U/S on 09/14 showed cholelithiasis without evidence of intra or extrahepatic biliary duct dilation. gallbladder slightly thickened -GI on board: Dr. Julia Pete #Endo - DM - BGMs, ISS ACHS Levemir 5 units daily at HS. Hold when FS <140 - Endocrine: Dr. Barboza -Hypothroidism - -c/w synthroid #ID - R foot cellulitis - Continue Cefazolin as per ID (09/21) - afebrile, w/o leukocytosis currently - c/t monitor blood cx, ucx #FEN avoid IVF as HD pt, unless needed continue to follow lytes renal diet #PPX - GI PPX: Protonix - DVT PPX: SCDs #Disposition cont'd monitoring on med-surg needs rehab. Plan is to dc to [place]. will need pre and post on d/c per , for dialysis early tomorrow AM then for d/c after (09/27) - is set up for dialysis on Tu AM as outpatient (at 9:45AM) - will need fistula as outpt <Tracey King - Last Filed: 09/26/19 16:14> - Note Progress Note: Seen and examined; I agree with the above documentation as outlined by the resident aside from as supplemented by myself below. All historical and roach PE findings along side diagnostics independently verified. Case was discussed at length with the resident team. All questions were answered. No other events reported; continues to remain on medicine service transferred from Dr. Curtis's service. He is stable and has no new complaints, denying chest pain, SOB, etc. He is pending DC coordination and remains medically stable. 10 sys ROS done and negative aside from HPI NAD AAO resting in bed NC AT EOMI PERRLA HR wnl, +s1/2 Lungs without focal crackles, rales; w/ sym exp NT ND +BS CN2-12 wnl, no fnd Normal mood, appropriate behavior 09/19/2019 Vik Sci INFANT ROOM TEACHER-D interrogated, 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 08/2019 10 beat run of NSVT self- terminated w/o therapy. 09/12/2019 Moderate dilated with severely decreased LVEF 20-25%, preserved wall motion at base, rest of segments severely HK, mod-severe MR, mild TR, pacemaker RV, mild-mod AR, mild ao dilatation 4.1 cm A/P: Continues to be pending DC approvals. He presented to the hospital with RUQ pain and was found to have cholecystitis and was treated surgically and had a difficult etubation and was kept in ICU. He was transferred to our service and has done well since. He has ESRD on TTS HD and needs OP services and placement coordinated. He is stable on his current medications. He has an exceptionally complex medical history. Problems include: -Acute respiratory failure (remains resolved; status post intubation) -Severe HFrEF 2/2 ischemic CM (c/w Carvedilol, Losartan, isosordil, hydralazine. Management per Dr. Day. Had a negative interrogation of AICD. Echo 20-25%. No plans for advanced devices, etc.) -ESRD on HD (set up OP HD services, FU with Dr. Dubose, OP fistula placement) -HTN (Stable) -Cellulitis (Was on abx per ID; -Hx DM (continue current management; monitoring AC+HS fsg) -Hx CVA (Noted; continue home meds. No change in neuro exam) -History of dementia (continue donepezil; alzheimer type with likely vascular component) -Status Post Cholecystectomy (No issues postop, no wound infection, FU OP with sgy.) -Hx hypothyroidism (no s/s myxedema; FU OP TSH and continue current management) <Zeferino Moore - Last Filed: 09/27/19 07:27>
--- NOTE | 2019-09-26 10:46 | PN ---
Progress Note (short form) - Note Progress Note: Denies any complaints Vital Signs Period Temp Pulse Resp BP Sys/Palacios Pulse Ox Last 24 Hr 98.0 F-98.7 F 59-93 18-20 114-139/62-78 96-98 PE Awake alert Neck: Supple, No JVD Lungs: CTA CVS: s1S2 Abd: Sofr NT Ext: No edema Neuro: No focal deficit CMP Sodium 138 mmol/L (136-145) 09/26/19 07:50 Potassium 4.2 mmol/L (3.5-5.1) 09/26/19 07:50 Chloride 103 mmol/L (98-107) 09/26/19 07:50 Carbon Dioxide 28 mmol/L (21-32) 09/26/19 07:50 Anion Gap 7 MMOL/L (8-16) L 09/26/19 07:50 BUN 35.9 mg/dL (7-18) H 09/26/19 07:50 Creatinine 3.4 mg/dL (0.55-1.3) H 09/26/19 07:50 Est GFR (CKD-EPI)AfAm 20.04 09/26/19 07:50 Est GFR (CKD-EPI)NonAf 17.29 09/26/19 07:50 POC Glucometer 164 UNITS (80-120) 09/26/19 05:48 Random Glucose 132 mg/dL (74-106) H 09/26/19 07:50 Hemoglobin A1c % 7.2 % (4.2-6.3) H 09/09/19 15:00 Calcium 8.3 mg/dL (8.5-10.1) L 09/26/19 07:50 Phosphorus 3.3 mg/dL (2.5-4.9) 09/26/19 07:50 Magnesium 2.0 mg/dL (1.8-2.4) 09/26/19 07:50 Total Bilirubin 0.4 mg/dL (0.2-1) 09/21/19 06:40 AST 28 U/L (15-37) 09/21/19 06:40 ALT 6 U/L (13-61) L 09/21/19 06:40 Alkaline Phosphatase 132 U/L (45-117) H 09/21/19 06:40 Ammonia 24.90 umol/L (11-32) 09/24/19 14:45 Creatine Kinase 143 U/L (26-308) 09/10/19 20:45 Creatine Kinase Index 1.3 % (0.0-5.0) 09/08/19 12:55 CK-MB (CK-2) 5.0 ng/mL (0.5-3.6) H 09/08/19 12:55 Troponin I 0.17 ng/ml (0.00-0.05) H 09/11/19 16:13 Total Protein 5.4 g/dl (6.4-8.2) L 09/21/19 06:40 Albumin 2.0 g/dl (3.4-5.0) L 09/21/19 06:40 Triglycerides 120 mg/dL (0-150) 09/09/19 04:26 Cholesterol 94 mg/dL (50-200) 09/09/19 04:26 Total LDL Cholesterol 45 mg/dL (5-100) 09/09/19 04:26 HDL Cholesterol 37 mg/dL (40-60) L 09/09/19 04:26 TSH 3.73 uIU/ml (0.358-3.74) 09/09/19 04:26 Current Medications Generic Name Dose Route Start Last Admin Trade Name Freq PRN Reason Stop Dose Admin Acetaminophen 650 mg 09/20/19 17:29 09/23/19 21:40 Tylenol - PO 650 mg Q6H PRN Administration FEVER Carvedilol 6.25 mg 09/22/19 11:50 09/26/19 09:22 Coreg - PO 6.25 mg BID [facility] Administration Diphenhydramine HCl 25 mg 09/20/19 17:29 Benadryl - PO HS PRN INSOMNIA Donepezil HCl 10 mg 09/21/19 10:00 09/26/19 09:22 Aricept - PO 10 mg DAILY [facility] Administration Heparin Sodium (Porcine) 5,000 unit 09/20/19 22:00 09/26/19 05:54 Heparin - SQ 5,000 unit TID [facility] Administration Hydralazine HCl 25 mg 09/20/19 22:00 09/26/19 09:22 Apresoline - PO 25 mg BID [facility] Administration Cefazolin Sodium 1 gm/ 50 mls @ 100 mls/hr 09/21/19 10:00 09/26/19 09:22 Dextrose IVPB 100 mls/hr DAILY [facility] Administration Insulin Aspart 1 vial 09/20/19 22:00 09/25/19 21:46 Novolog Vial Sliding Scale - SQ 3 units HS [facility] Administration Protocol Insulin Aspart 1 vial 09/21/19 07:00 09/26/19 06:15 Novolog Vial Sliding Scale - SQ 2 units TIDAC [facility] Administration Protocol Insulin Detemir 4 units 09/22/19 22:00 09/25/19 21:47 Levemir Vial SQ 4 units HS [facility] Administration Isosorbide Dinitrate 20 mg 09/20/19 18:00 09/26/19 09:24 Isordil - PO 20 mg BIDISORDIL [facility] Administration Levothyroxine Sodium 125 mcg 09/21/19 07:00 09/26/19 06:15 Synthroid - PO 125 mcg DAILY@0700 [facility] Administration Losartan Potassium 50 mg 09/24/19 16:00 09/26/19 09:22 Cozaar - PO 50 mg DAILY [facility] Administration Melatonin 10 mg 09/20/19 22:00 09/25/19 21:41 Melatonin PO 10 mg HS [facility] Administration Pantoprazole Sodium 40 mg 09/21/19 10:00 09/26/19 09:22 Protonix - PO 40 mg DAILY [facility] Administration AP: S/P Respiratory failure Cholecystitis Rt Foot cellulitis T2DM Hypothyroidism ESRD Off Glimepiride b/o increase risk of hypoglycemia with long acting Sulfonylurea in pt on HD. BGM Q ACHS. To give 100 KCal snack when FS <100 or D50 if FS <60 Increase Levemir 5 units daily at HS. Hold when FS <140 Novolog SS coverage premeals and HS Abx as per ID Will f/u
--- NOTE | 2019-09-26 13:41 | PN ---
Progress Note, Physician History of Present Illness: Vik Sci BEAMING MACHINE OPERATOR-D interrogated, normal function. Denies chest pain or dyspnea. - Current Medication List Current Medications: Active Medications Acetaminophen (Tylenol -) 650 mg PO Q6H PRN PRN Reason: FEVER Last Admin: 09/23/19 21:40 Dose: 650 mg Carvedilol (Coreg -) 6.25 mg PO BID [facility] Last Admin: 09/26/19 09:22 Dose: 6.25 mg Diphenhydramine HCl (Benadryl -) 25 mg PO HS PRN PRN Reason: INSOMNIA Donepezil HCl (Aricept -) 10 mg PO DAILY [facility] Last Admin: 09/26/19 09:22 Dose: 10 mg Heparin Sodium (Porcine) (Heparin -) 5,000 unit SQ TID [facility] Last Admin: 09/26/19 05:54 Dose: 5,000 unit Hydralazine HCl (Apresoline -) 25 mg PO BID [facility] Last Admin: 09/26/19 09:22 Dose: 25 mg Cefazolin Sodium 1 gm/ (Dextrose) 50 mls @ 100 mls/hr IVPB DAILY [facility] Last Admin: 09/26/19 09:22 Dose: 100 mls/hr Insulin Aspart (Novolog Vial Sliding Scale -) 1 vial SQ HS [facility]; Protocol Last Admin: 09/25/19 21:46 Dose: 3 units Insulin Aspart (Novolog Vial Sliding Scale -) 1 vial SQ TIDAC [facility]; Protocol Last Admin: 09/26/19 12:13 Dose: 2 units Insulin Detemir (Levemir Vial) 5 units SQ HS [facility] Isosorbide Dinitrate (Isordil -) 20 mg PO BIDISORDIL [facility] Last Admin: 09/26/19 09:24 Dose: 20 mg Levothyroxine Sodium (Synthroid -) 125 mcg PO DAILY@0700 [facility] Last Admin: 09/26/19 06:15 Dose: 125 mcg Losartan Potassium (Cozaar -) 50 mg PO DAILY [facility] Last Admin: 09/26/19 09:22 Dose: 50 mg Melatonin (Melatonin) 10 mg PO HS [facility] Last Admin: 09/25/19 21:41 Dose: 10 mg Pantoprazole Sodium (Protonix -) 40 mg PO DAILY [facility] Last Admin: 09/26/19 09:22 Dose: 40 mg - Objective Vital Signs: Vital Signs Temperature 98.7 F 09/26/19 10:00 Pulse Rate 64 09/26/19 10:00 Respiratory Rate 18 09/26/19 10:00 Blood Pressure 120/64 09/26/19 10:00 O2 Sat by Pulse Oximetry (%) 98 09/26/19 10:00 Constitutional: Yes: No Distress, Calm, Thin Neck: Yes: Supple Cardiovascular: Yes: Regular Rate and Rhythm Respiratory: Yes: Regular, CTA Bilaterally Gastrointestinal: Yes: Normal Bowel Sounds, Soft Edema: No Labs: CBC, BMP 09/25/19 07:25 09/26/19 07:50 INR, PTT INR 1.08 (0.83-1.09) 09/08/19 13:33 Problem List - Problems (1) Biventricular ICD (implantable cardioverter-defibrillator) in place Code(s): Z95.810 - PRESENCE OF AUTOMATIC (IMPLANTABLE) CARDIAC DEFIBRILLATOR (2) Cellulitis of right foot Code(s): L03.115 - CELLULITIS OF RIGHT LOWER LIMB (3) Diabetes Code(s): E11.9 - TYPE 2 DIABETES MELLITUS WITHOUT COMPLICATIONS Qualifiers: Diabetes mellitus type: type 2 Chronic kidney disease stage: on chronic dialysis (4) ESRD (end stage renal disease) Code(s): N18.6 - END STAGE RENAL DISEASE (5) HTN (hypertension) Code(s): I10 - ESSENTIAL (PRIMARY) HYPERTENSION Qualifiers: Hypertension type: essential hypertension Qualified Code(s): I10 - Essential (primary) hypertension (6) Hypothyroid Code(s): E03.9 - HYPOTHYROIDISM, UNSPECIFIED Qualifiers: Hypothyroidism type: unspecified Qualified Code(s): E03.9 - Hypothyroidism , unspecified (7) Cardiomyopathy Code(s): I42.9 - CARDIOMYOPATHY, UNSPECIFIED Qualifiers: Cardiomyopathy type: unspecified Qualified Code(s): I42.9 - Cardiomyopathy , unspecified Assessment/Plan 09/19/2019 Vik Sci BEAMING MACHINE OPERATOR-D interrogated, 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 08/2019 10 beat run of NSVT self- terminated w/o therapy. 09/12/2019 Moderate dilated with severely decreased LVEF 20-25%, preserved wall motion at base, rest of segments severely HK, mod-severe MR, mild TR, pacemaker RV, mild-mod AR, mild ao dilatation 4.1 cm 1. POD#8 Laparoscopic cholecystectomy 2. Acute Hypercapneic/Hypoxic Respiratory Failure 3. Acute on chronic systolic heart failure 4. Severe cardiomyopathy s/p BEAMING MACHINE OPERATOR/ICD 5. HTN 6. ESRD on HD (//) 7. Rt Foot cellulitis, r/o PAD 8. Type 2 DM 9. Hypothyroidism 10. Dementia PLAN: 1. HD per renal and f/u renal function and electrolytes, await outpt HD placement 2. Wound care and antibiotic coverage per ID. 3. Continue Carvedilol 6.25 mg BID and Losartan 50 mg QD with uptitrate as hemodynamics tolerate. Continue Isordil 20 mg BID and Hydralazine 25 mg BID
[2019-09-26] MEDS ORDERED: SODIUM CHLORIDE 250 ML IV PRN (17:10)
--- NOTE | 2019-09-26 17:10 | PN ---
Progress Note, Physician History of Present Illness: Pt seen and examined at bedside. He is awake and appears comfortable. - Current Medication List Current Medications: Active Medications Acetaminophen (Tylenol -) 650 mg PO Q6H PRN PRN Reason: FEVER Last Admin: 09/23/19 21:40 Dose: 650 mg Carvedilol (Coreg -) 6.25 mg PO BID [facility] Last Admin: 09/26/19 09:22 Dose: 6.25 mg Diphenhydramine HCl (Benadryl -) 25 mg PO HS PRN PRN Reason: INSOMNIA Donepezil HCl (Aricept -) 10 mg PO DAILY [facility] Last Admin: 09/26/19 09:22 Dose: 10 mg Heparin Sodium (Porcine) (Heparin -) 5,000 unit SQ TID [facility] Last Admin: 09/26/19 13:48 Dose: 5,000 unit Hydralazine HCl (Apresoline -) 25 mg PO BID [facility] Last Admin: 09/26/19 09:22 Dose: 25 mg Cefazolin Sodium 1 gm/ (Dextrose) 50 mls @ 100 mls/hr IVPB DAILY [facility] Last Admin: 09/26/19 09:22 Dose: 100 mls/hr Insulin Aspart (Novolog Vial Sliding Scale -) 1 vial SQ HS [facility]; Protocol Last Admin: 09/25/19 21:46 Dose: 3 units Insulin Aspart (Novolog Vial Sliding Scale -) 1 vial SQ TIDAC [facility]; Protocol Last Admin: 09/26/19 16:55 Dose: 3 units Insulin Detemir (Levemir Vial) 5 units SQ [facility] Isosorbide Dinitrate (Isordil -) 20 mg PO BIDISORDIL [facility] Last Admin: 09/26/19 09:24 Dose: 20 mg Levothyroxine Sodium (Synthroid -) 125 mcg PO DAILY@0700 [facility] Last Admin: 09/26/19 06:15 Dose: 125 mcg Losartan Potassium (Cozaar -) 50 mg PO DAILY [facility] Last Admin: 09/26/19 09:22 Dose: 50 mg Melatonin (Melatonin) 10 mg PO HS [facility] Last Admin: 09/25/19 21:41 Dose: 10 mg Pantoprazole Sodium (Protonix -) 40 mg PO DAILY [facility] Last Admin: 09/26/19 09:22 Dose: 40 mg - Objective Vital Signs: Vital Signs Temperature 98.7 F 09/26/19 10:00 Pulse Rate 64 09/26/19 10:00 Respiratory Rate 18 09/26/19 10:00 Blood Pressure 120/64 09/26/19 10:00 O2 Sat by Pulse Oximetry (%) 98 09/26/19 10:00 Constitutional: Yes: Calm Eyes: Yes: Conjunctiva Clear HENT: Yes: Atraumatic Cardiovascular: Yes: S1, S2 Respiratory: Yes: CTA Bilaterally Gastrointestinal: Yes: Normal Bowel Sounds, Soft Genitourinary: Yes: WNL Musculoskeletal: Yes: WNL Edema: LLE: Trace, RLE: Trace Neurological: Yes: Oriented Psychiatric: Yes: Oriented Labs: CBC, BMP 09/25/19 07:25 09/26/19 07:50 INR, PTT INR 1.08 (0.83-1.09) 09/08/19 13:33 Problem List - Problems (1) Cellulitis of right foot Code(s): L03.115 - CELLULITIS OF RIGHT LOWER LIMB (2) Diabetes Code(s): E11.9 - TYPE 2 DIABETES MELLITUS WITHOUT COMPLICATIONS Qualifiers: Diabetes mellitus type: type 2 Chronic kidney disease stage: on chronic dialysis (3) ESRD (end stage renal disease) Code(s): N18.6 - END STAGE RENAL DISEASE (4) HTN (hypertension) Code(s): I10 - ESSENTIAL (PRIMARY) HYPERTENSION Qualifiers: Hypertension type: essential hypertension Qualified Code(s): I10 - Essential (primary) hypertension (5) Hypothyroid Code(s): E03.9 - HYPOTHYROIDISM, UNSPECIFIED Qualifiers: Hypothyroidism type: unspecified Qualified Code(s): E03.9 - Hypothyroidism , unspecified Assessment/Plan Current Medications Generic Name Dose Route Start Last Admin Trade Name Freq PRN Reason Stop Dose Admin Acetaminophen 650 mg 09/20/19 17:29 09/23/19 21:40 Tylenol - PO 650 mg Q6H PRN Administration FEVER Carvedilol 6.25 mg 09/22/19 11:50 09/26/19 09:22 Coreg - PO 6.25 mg BID [facility] Administration Diphenhydramine HCl 25 mg 09/20/19 17:29 Benadryl - PO HS PRN INSOMNIA Donepezil HCl 10 mg 09/21/19 10:00 09/26/19 09:22 Aricept - PO 10 mg DAILY [facility] Administration Heparin Sodium (Porcine) 5,000 unit 09/20/19 22:00 09/26/19 13:48 Heparin - SQ 5,000 unit TID [facility] Administration Hydralazine HCl 25 mg 09/20/19 22:00 09/26/19 09:22 Apresoline - PO 25 mg BID [facility] Administration Cefazolin Sodium 1 gm/ 50 mls @ 100 mls/hr 09/21/19 10:00 09/26/19 09:22 Dextrose IVPB 100 mls/hr DAILY [facility] Administration Insulin Aspart 1 vial 09/20/19 22:00 09/25/19 21:46 Novolog Vial Sliding Scale - SQ 3 units HS [facility] Administration Protocol Insulin Aspart 1 vial 09/21/19 07:00 09/26/19 16:55 Novolog Vial Sliding Scale - SQ 3 units TIDAC [facility] Administration Protocol Insulin Detemir 5 units 09/26/19 22:00 Levemir Vial SQ HS [facility] Isosorbide Dinitrate 20 mg 09/20/19 18:00 09/26/19 09:24 Isordil - PO 20 mg BIDISORDIL [facility] Administration Levothyroxine Sodium 125 mcg 09/21/19 07:00 09/26/19 06:15 Synthroid - PO 125 mcg DAILY@0700 [facility] Administration Losartan Potassium 50 mg 09/24/19 16:00 09/26/19 09:22 Cozaar - PO 50 mg DAILY [facility] Administration Melatonin 10 mg 09/20/19 22:00 09/25/19 21:41 Melatonin PO 10 mg HS [facility] Administration Pantoprazole Sodium 40 mg 09/21/19 10:00 09/26/19 09:22 Protonix - PO 40 mg DAILY [facility] Administration Impression 1. ESRD 2. HTN 3. cellulitis 4. DM 5. hypothyroidism 6. hx of CVA 7. cholecystectomy Plan - HD tomorrow - placement for [facility] HD on Sunday next week - will need fistula as outpt - cont arb - renal diet
[2019-09-26] MEDS: MELATONIN 5 MG TABLETS PO SCH (21:08)
[2019-09-26] MEDS ORDERED: INSULIN (LEVEMIR) 100 UNITS/ML UNITS SQ SCH (22:00)
[2019-09-27] MEDS ORDERED: INSULIN (LEVEMIR) 100 UNITS/ML UNITS SQ ONE (04:53)
[2019-09-27] MEDS: HEPARIN NA (PORCINE) 5,000 UNITS/ML 1ML VIAL SQ SCH ×2 (05:23→14:00)
[2019-09-27] MEDS: INSULIN SLIDING SCALE (NOVOLOG) 1 VIAL SQ SCH (06:03)
[2019-09-27] MEDS: LEVOTHYROXINE NA 125 MCG TABLET (FP) PO SCH (06:37)
[2019-09-27 08:40] LABS: BLOOD UREA NITROGEN 52.5 mg/dL (7-18); CALCIUM 8.2 mg/dL (8.5-10.1); CREATININE 4.4 mg/dL (0.55-1.3); POTASSIUM 3.8 mmol/L (3.5-5.1)
[2019-09-27] MEDS: DONEPEZIL HCL 10 MG TABLET (FP) PO SCH (09:20)
[2019-09-27] MEDS: hydrALAZINE HCL 25 MG TABLET (FP) PO SCH (09:20)
[2019-09-27] MEDS: CARVEDILOL 6.25 MG TABLET (FP) PO SCH (09:21)
[2019-09-27] MEDS: LOSARTAN POTASSIUM 50 MG TABLET (FP) PO SCH (09:22)
[2019-09-27] MEDS: PANTOPRAZOLE 40 MG TABLET (FP) PO SCH (09:23)
[2019-09-27] MEDS: ISOSORBIDE DINITRATE 20 MG TABLET (FP) PO SCH ×2 (09:23→17:13)
--- NOTE | 2019-09-27 12:07 | PN ---
Progress Note (short form) - Note Progress Note: Seen during dialysis Denies any complaints Vital Signs Period Temp Pulse Resp BP Sys/Palacios Pulse Ox Last 24 Hr 97.5 F-98.2 F 61-68 18-20 121-136/69-72 100 PE Awake alert Neck: Supple, No JVD Lungs: CTA CVS: s1S2 Abd: Sofr NT Ext: trace edema Neuro: No focal deficit CMP Sodium 139 mmol/L (136-145) 09/27/19 06:00 Potassium 3.8 mmol/L (3.5-5.1) 09/27/19 06:00 Chloride 103 mmol/L (98-107) 09/27/19 06:00 Carbon Dioxide 28 mmol/L (21-32) 09/27/19 06:00 Anion Gap 9 MMOL/L (8-16) 09/27/19 06:00 BUN 52.5 mg/dL (7-18) H 09/27/19 06:00 Creatinine 4.4 mg/dL (0.55-1.3) H 09/27/19 06:00 Est GFR (CKD-EPI)AfAm 14.67 09/27/19 06:00 Est GFR (CKD-EPI)NonAf 12.66 09/27/19 06:00 POC Glucometer 180 UNITS (80-120) 09/27/19 05:39 Random Glucose 158 mg/dL (74-106) H 09/27/19 06:00 Hemoglobin A1c % 7.2 % (4.2-6.3) H 09/09/19 15:00 Calcium 8.2 mg/dL (8.5-10.1) L 09/27/19 06:00 Phosphorus 3.0 mg/dL (2.5-4.9) 09/27/19 06:00 Magnesium 2.0 mg/dL (1.8-2.4) 09/27/19 06:00 Total Bilirubin 0.4 mg/dL (0.2-1) 09/21/19 06:40 AST 28 U/L (15-37) 09/21/19 06:40 ALT 6 U/L (13-61) L 09/21/19 06:40 Alkaline Phosphatase 132 U/L (45-117) H 09/21/19 06:40 Ammonia 24.90 umol/L (11-32) 09/24/19 14:45 Creatine Kinase 143 U/L (26-308) 09/10/19 20:45 Creatine Kinase Index 1.3 % (0.0-5.0) 09/08/19 12:55 CK-MB (CK-2) 5.0 ng/mL (0.5-3.6) H 09/08/19 12:55 Troponin I 0.17 ng/ml (0.00-0.05) H 09/11/19 16:13 Total Protein 5.4 g/dl (6.4-8.2) L 09/21/19 06:40 Albumin 2.0 g/dl (3.4-5.0) L 09/21/19 06:40 Triglycerides 120 mg/dL (0-150) 09/09/19 04:26 Cholesterol 94 mg/dL (50-200) 09/09/19 04:26 Total LDL Cholesterol 45 mg/dL (5-100) 09/09/19 04:26 HDL Cholesterol 37 mg/dL (40-60) L 09/09/19 04:26 TSH 3.73 uIU/ml (0.358-3.74) 09/09/19 04:26 Current Medications Generic Name Dose Route Start Last Admin Trade Name Freq PRN Reason Stop Dose Admin Acetaminophen 650 mg 09/20/19 17:29 09/23/19 21:40 Tylenol - PO 650 mg Q6H PRN Administration FEVER Carvedilol 6.25 mg 09/22/19 11:50 09/27/19 09:21 Coreg - PO Not Given BID [facility] Diphenhydramine HCl 25 mg 09/20/19 17:29 Benadryl - PO HS PRN INSOMNIA Donepezil HCl 10 mg 09/21/19 10:00 09/27/19 09:20 Aricept - PO Not Given DAILY [facility] Heparin Sodium (Porcine) 5,000 unit 09/20/19 22:00 09/27/19 05:23 Heparin - SQ 5,000 unit TID [facility] Administration Hydralazine HCl 25 mg 09/20/19 22:00 09/27/19 09:20 Apresoline - PO Not Given BID [facility] Cefazolin Sodium 1 gm/ 50 mls @ 100 mls/hr 09/21/19 10:00 09/26/19 09:22 Dextrose IVPB 100 mls/hr DAILY [facility] Administration Sodium Chloride 250 mls @ 3,000 mls/hr 09/26/19 17:10 Normal Saline - IV 09/27/19 17:10 PRN PRN Hypotension during Dialysis Insulin Aspart 1 vial 09/20/19 22:00 09/26/19 21:08 Novolog Vial Sliding Scale - SQ Not Given HS [facility] Protocol Insulin Aspart 1 vial 09/21/19 07:00 09/27/19 06:03 Novolog Vial Sliding Scale - SQ 2 units TIDAC [facility] Administration Protocol Insulin Detemir 5 units 09/26/19 22:00 09/26/19 21:07 Levemir Vial SQ 5 units HS [facility] Administration Isosorbide Dinitrate 20 mg 09/20/19 18:00 09/27/19 09:23 Isordil - PO Not Given BIDISORDIL [facility] Levothyroxine Sodium 125 mcg 09/21/19 07:00 09/27/19 06:37 Synthroid - PO 125 mcg DAILY@0700 [facility] Administration Losartan Potassium 50 mg 09/24/19 16:00 09/27/19 09:22 Cozaar - PO Not Given DAILY [facility] Melatonin 10 mg 09/20/19 22:00 09/26/19 21:08 Melatonin PO 10 mg HS [facility] Administration Pantoprazole Sodium 40 mg 09/21/19 10:00 09/27/19 09:23 Protonix - PO Not Given DAILY [facility] AP: S/P Respiratory failure Cholecystitis Rt Foot cellulitis T2DM Hypothyroidism ESRD Off Glimepiride b/o increase risk of hypoglycemia with long acting Sulfonylurea in pt on HD. BGM Q ACHS. To give 100 KCal snack when FS <100 or D50 if FS <60 Increase Levemir 6 units daily at HS. Hold when FS <140 Increase Novolog SS coverage premeals Abx as per ID Will f/u
[2019-09-27] MEDS ORDERED: INSULIN SLIDING SCALE (NOVOLOG) 1 VIAL SQ SCH (12:08)
[2019-09-27 15:53] VITALS: BP 149/90; PULSE 72; TEMP 98.9
--- NOTE | 2019-09-27 16:43 | PN ---
Progress Note (short form) - Note Progress Note: Patient seen and examined at bedside was dialyzed today and now being discharged to [facility] He has no complaints at this time afebrile and denies nausea vomiting fever chills chest pain and shortness of breath Vital Signs Temperature 98.9 F 09/27/19 15:49 Pulse Rate 72 09/27/19 15:49 Respiratory Rate 20 09/27/19 15:49 Blood Pressure 149/90 09/27/19 15:49 O2 Sat by Pulse Oximetry (%) 100 09/26/19 21:00 Active Medications Generic Name Dose Route Start Last Admin Trade Name Freq PRN Reason Stop Dose Admin Acetaminophen 650 mg 09/20/19 17:29 09/23/19 21:40 Tylenol - PO 650 mg Q6H PRN Administration FEVER Carvedilol 6.25 mg 09/22/19 11:50 09/27/19 09:21 Coreg - PO Not Given BID [facility] Diphenhydramine HCl 25 mg 09/20/19 17:29 Benadryl - PO HS PRN INSOMNIA Donepezil HCl 10 mg 09/21/19 10:00 09/27/19 09:20 Aricept - PO Not Given DAILY [facility] Heparin Sodium (Porcine) 5,000 unit 09/20/19 22:00 09/27/19 05:23 Heparin - SQ 5,000 unit TID [facility] Administration Hydralazine HCl 25 mg 09/20/19 22:00 09/27/19 09:20 Apresoline - PO Not Given BID [facility] Cefazolin Sodium 1 gm/ 50 mls @ 100 mls/hr 09/21/19 10:00 09/26/19 09:22 Dextrose IVPB 100 mls/hr DAILY [facility] Administration Sodium Chloride 250 mls @ 3,000 mls/hr 09/26/19 17:10 Normal Saline - IV 09/27/19 17:10 PRN PRN Hypotension during Dialysis Insulin Aspart 1 vial 09/20/19 22:00 09/26/19 21:08 Novolog Vial Sliding Scale - SQ Not Given HS [facility] Protocol Insulin Aspart 1 vial 09/27/19 12:08 Novolog Vial Sliding Scale - SQ TIDAC [facility] Protocol Insulin Detemir 6 units 09/27/19 22:00 Levemir Vial SQ HS [facility] Isosorbide Dinitrate 20 mg 09/20/19 18:00 09/27/19 09:23 Isordil - PO Not Given BIDISORDIL [facility] Levothyroxine Sodium 125 mcg 09/21/19 07:00 09/27/19 06:37 Synthroid - PO 125 mcg DAILY@0700 [facility] Administration Losartan Potassium 50 mg 09/24/19 16:00 09/27/19 09:22 Cozaar - PO Not Given DAILY [facility] Melatonin 10 mg 09/20/19 22:00 09/26/19 21:08 Melatonin PO 10 mg HS [facility] Administration Pantoprazole Sodium 40 mg 09/21/19 10:00 09/27/19 09:23 Protonix - PO Not Given DAILY [facility] On exam is AAOx3. RRR on cardiac exam. CTAB. Soft non tender non distended ABD. 1+ pitting edema. Right foot clean with no drainage or erythema. A/P: 69 y/o/m with PMH significant for HTN, DM, pacemaker, ESRD on dialysis T//S, questionable dementia presented to ED for right foot pain and swelling. treated for cellulitis. Hospital course complicated by found to have cholecystitis and s/p laparoscopic cholcystectomy Continue meds for hypertension and heart failure Coreg losartan hydralazine and follow up with Dr. Day for further management f/u with nephrology Dr. Dubose for ESRD on HD and f/u vascular Dr. Fitzgerald for fistula evaluation No longer needs Abx for cellulitis Continue synthroid for hypothyroidism continue PPI has slot for dialysis //sat Dr. Tse will see patient at [facility] to establish primary care as patient is from [place] and per daughter came straight to the hospital. Discussed plan and discharge with daughter. All questions answered and concerns addressed. discharge summary to be done by primary team Dr. Moore and Dr. King. Discussed with them. Visit type - Emergency Visit Emergency Visit: Yes ED Registration Date: 09/08/19 Care time: The patient presented to the Emergency Department on the above date and was hospitalized for further evaluation of their emergent condition. - New Patient This patient is new to me today: Yes Date on this admission: 09/27/19 - Critical Care Critical Care patient: No - Discharge Referral Referred to [facility] No
[2019-09-27] MEDS: CEFAZOLIN 1 GM in DEXTROSE 5%-WATER - 50 ML IVPB SCH (17:09)
[2019-09-27] MEDS ORDERED: PT OWN MED DRAWER 7, Y5N ONE (17:11)
--- NOTE | 2019-09-27 18:36 | PN ---
Progress Note, Physician History of Present Illness: Pt seen and examined at bedside. He is awake and appears comfortable. he tolerated HD today. - Current Medication List Current Medications: Active Medications Acetaminophen (Tylenol -) 650 mg PO Q6H PRN PRN Reason: FEVER Last Admin: 09/23/19 21:40 Dose: 650 mg Carvedilol (Coreg -) 6.25 mg PO BID [facility] Last Admin: 09/27/19 09:21 Dose: Not Given Diphenhydramine HCl (Benadryl -) 25 mg PO HS PRN PRN Reason: INSOMNIA Donepezil HCl (Aricept -) 10 mg PO DAILY [facility] Last Admin: 09/27/19 09:20 Dose: Not Given Heparin Sodium (Porcine) (Heparin -) 5,000 unit SQ TID [facility] Last Admin: 09/27/19 14:00 Dose: Not Given Hydralazine HCl (Apresoline -) 25 mg PO BID [facility] Last Admin: 09/27/19 09:20 Dose: Not Given Cefazolin Sodium 1 gm/ (Dextrose) 50 mls @ 100 mls/hr IVPB DAILY [facility] Last Admin: 09/27/19 17:09 Dose: Not Given Sodium Chloride (Normal Saline -) 250 mls @ 3,000 mls/hr IV PRN PRN PRN Reason: Hypotension during Dialysis Stop: 09/27/19 17:10 Insulin Aspart (Novolog Vial Sliding Scale -) 1 vial SQ HS [facility]; Protocol Last Admin: 09/26/19 21:08 Dose: Not Given Insulin Aspart (Novolog Vial Sliding Scale -) 1 vial SQ TIDAC [facility]; Protocol Last Admin: 09/27/19 17:15 Dose: 4 units Insulin Detemir (Levemir Vial) 6 units SQ [facility] Isosorbide Dinitrate (Isordil -) 20 mg PO BIDISORDIL [facility] Last Admin: 09/27/19 17:13 Dose: 20 mg Levothyroxine Sodium (Synthroid -) 125 mcg PO DAILY@0700 [facility] Last Admin: 09/27/19 06:37 Dose: 125 mcg Losartan Potassium (Cozaar -) 50 mg PO DAILY [facility] Last Admin: 09/27/19 09:22 Dose: Not Given Melatonin (Melatonin) 10 mg PO HS [facility] Last Admin: 09/26/19 21:08 Dose: 10 mg Pantoprazole Sodium (Protonix -) 40 mg PO DAILY [facility] Last Admin: 09/27/19 09:23 Dose: Not Given - Objective Vital Signs: Vital Signs Temperature 98.9 F 09/27/19 15:49 Pulse Rate 72 09/27/19 15:49 Respiratory Rate 20 09/27/19 15:49 Blood Pressure 149/90 09/27/19 15:49 O2 Sat by Pulse Oximetry (%) 100 09/26/19 21:00 Constitutional: Yes: Calm Eyes: Yes: Conjunctiva Clear HENT: Yes: Atraumatic Neck: Yes: Supple Cardiovascular: Yes: S1, S2 Gastrointestinal: Yes: Normal Bowel Sounds, Soft Genitourinary: Yes: WNL Musculoskeletal: Yes: WNL Edema: No Neurological: Yes: Oriented Psychiatric: Yes: Oriented Labs: CBC, BMP 09/25/19 07:25 09/27/19 06:00 INR, PTT INR 1.08 (0.83-1.09) 09/08/19 13:33 Problem List - Problems (1) Cellulitis of right foot Code(s): L03.115 - CELLULITIS OF RIGHT LOWER LIMB (2) Diabetes Code(s): E11.9 - TYPE 2 DIABETES MELLITUS WITHOUT COMPLICATIONS Qualifiers: Diabetes mellitus type: type 2 Chronic kidney disease stage: on chronic dialysis (3) ESRD (end stage renal disease) Code(s): N18.6 - END STAGE RENAL DISEASE (4) HTN (hypertension) Code(s): I10 - ESSENTIAL (PRIMARY) HYPERTENSION Qualifiers: Hypertension type: essential hypertension Qualified Code(s): I10 - Essential (primary) hypertension (5) Hypothyroid Code(s): E03.9 - HYPOTHYROIDISM, UNSPECIFIED Qualifiers: Hypothyroidism type: unspecified Qualified Code(s): E03.9 - Hypothyroidism , unspecified Assessment/Plan Current Medications Generic Name Dose Route Start Last Admin Trade Name Freq PRN Reason Stop Dose Admin Acetaminophen 650 mg 09/20/19 17:29 09/23/19 21:40 Tylenol - PO 650 mg Q6H PRN Administration FEVER Carvedilol 6.25 mg 09/22/19 11:50 09/27/19 09:21 Coreg - PO Not Given BID [facility] Diphenhydramine HCl 25 mg 09/20/19 17:29 Benadryl - PO HS PRN INSOMNIA Donepezil HCl 10 mg 09/21/19 10:00 09/27/19 09:20 Aricept - PO Not Given DAILY [facility] Heparin Sodium (Porcine) 5,000 unit 09/20/19 22:00 09/27/19 14:00 Heparin - SQ Not Given TID [facility] Hydralazine HCl 25 mg 09/20/19 22:00 09/27/19 09:20 Apresoline - PO Not Given BID [facility] Cefazolin Sodium 1 gm/ 50 mls @ 100 mls/hr 09/21/19 10:00 09/27/19 17:09 Dextrose IVPB Not Given DAILY [facility] Sodium Chloride 250 mls @ 3,000 mls/hr 09/26/19 17:10 Normal Saline - IV 09/27/19 17:10 PRN PRN Hypotension during Dialysis Insulin Aspart 1 vial 09/20/19 22:00 09/26/19 21:08 Novolog Vial Sliding Scale - SQ Not Given HS [facility] Protocol Insulin Aspart 1 vial 09/27/19 12:08 09/27/19 17:15 Novolog Vial Sliding Scale - SQ 4 units TIDAC [facility] Administration Protocol Insulin Detemir 6 units 09/27/19 22:00 Levemir Vial SQ HS [facility] Isosorbide Dinitrate 20 mg 09/20/19 18:00 09/27/19 17:13 Isordil - PO 20 mg BIDISORDIL [facility] Administration Levothyroxine Sodium 125 mcg 09/21/19 07:00 09/27/19 06:37 Synthroid - PO 125 mcg DAILY@0700 [facility] Administration Losartan Potassium 50 mg 09/24/19 16:00 09/27/19 09:22 Cozaar - PO Not Given DAILY [facility] Melatonin 10 mg 09/20/19 22:00 09/26/19 21:08 Melatonin PO 10 mg HS [facility] Administration Pantoprazole Sodium 40 mg 09/21/19 10:00 09/27/19 09:23 Protonix - PO Not Given DAILY [facility] Impression 1. ESRD 2. HTN 3. cellulitis 4. DM 5. hypothyroidism 6. hx of CVA 7. cholecystectomy Plan - HD today - he has HD set up as outpt - will need fistula as outpt - cont arb - renal diet
[2019-09-27] MEDS ORDERED: INSULIN (LEVEMIR) 100 UNITS/ML UNITS SQ SCH (22:00)
[2019-09-28 22:21] VITALS: BMI 27.2
--- NOTE | 2019-09-29 19:04 | DS ---
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 Please see last progress note for physical exam, etc. Vitals 09/27/19 15:49 Temperature 98.9 F Pulse Rate 72 Respiratory 20 Rate Blood Pressure 149/90 Laboratory Tests 09/08/19 09/14/19 09/16/19 13:33 07:10 08:20 WBC 11.3 H 6.9 8.2 Hgb 12.2 11.6 L 12.5 Hct 37.9 35.4 38.3 Plt Count 205 09/18/19 09/19/19 09/20/19 07:10 06:30 06:55 WBC 6.0 7.9 8.5 Hgb 11.8 13.2 12.5 Hct 35.9 40.4 38.7 Plt Count 194 200 09/21/19 09/23/19 09/24/19 06:40 10:15 08:10 WBC 7.4 11.7 H 5.0 Hgb 12.7 12.8 11.4 L Hct 39.1 39.3 34.0 L Plt Count 198 219 152 D 09/25/19 07:25 WBC 5.8 Hgb 11.6 L Hct 34.4 L Plt Count 144 09/08/19 13:33 PT with INR 12.80 INR 1.08 PTT (Actin FS) 33.3 09/18/19 09/19/19 09/24/19 15:45 05:50 14:20 ABG pH 7.41 7.40 7.38 ABG pCO2 at Pt Temp 48.4 H 47.8 H 45.0 ABG pO2 at Pt Temp 103 H 67.1 L 88.6 ABG HCO3 29.9 H 29.2 H 26.2 ABG O2 Sat (Measured) 97.7 96.6 ABG O2 Content 18.6 17.2 14.7 ABG Base Excess 4.7 H 4.1 H 1.4 09/09/19 09/21/19 09/25/19 15:00 06:40 07:25 Sodium Potassium Chloride BUN 30.7 H 56.3 H Creatinine 3.4 H 4.6 H Random Glucose 169 H Hemoglobin A1c % 7.2 H Calcium 7.6 L Phosphorus 2.4 L ALT 6 L Alkaline Phosphatase 132 H Total Protein 5.4 L Albumin 2.0 L 09/26/19 09/27/19 07:50 06:00 Sodium 138 139 Potassium 4.2 3.8 Chloride 103 BUN 35.9 H 52.5 H Creatinine 3.4 H 4.4 H Random Glucose 132 H Hemoglobin A1c % Calcium Phosphorus ALT Alkaline Phosphatase Total Protein Albumin 09/08/19 16:38 Urine Color Dk yellow Urine Appearance Cloudy Urine pH 5.5 Ur Specific [place] 1.021 Urine Protein 4+ H Urine Glucose (UA) Negative Urine Ketones Trace H Urine Blood 2+ H Urine Nitrite Negative Urine Bilirubin 1+ H Urine Urobilinogen 1.0 Ur Leukocyte Esterase Trace Urine WBC (Auto) 17 Urine RBC (Auto) 2 Urine Casts (Auto) 22 U Pathogenic Cast Auto 5-10 09/12/19 09:20 Stool Occult Blood Negative 09/09/19 15:35 Hep A IgM Ab Confirm Negative Hepatitis A Ab Total Positive H Hep Bs Antigen Negative Hep Bs Antibody Reactive Hep B Core Total Ab Positive H Hep B Core IgM Ab Negative Hepatitis Be Antibody Negative Hepatitis Be Antigen Negative Hep C Ab Diagnostic >11.0 H HCV RNA PCR w/Genot Rflx [id number] Microbiology 09/14/19 17:05 Stool Clostridioides difficile Antigen - Final 09/14/19 17:05 Stool Clostridioides difficile Toxin Assay - Final 09/08/19 16:38 Urine - Urine Clean Catch Urine Culture - Final Normal Urogenital [place] 09/08/19 13:35 Blood - Peripheral Venous Blood Culture - Final NO GROWTH AFTER 5 DAYS INCUBATION 09/08/19 13:35 Blood - Peripheral Venous Blood Culture - Final NO GROWTH AFTER 5 DAYS INCUBATION Imaging 09/08 CXR: large heart, folded aorta, L sided PPM, R jugular line with tip in RA , pleural reaction and atelectasis at the right base, with atelectasis in the lingula. no infiltrate. some posterior costophrenic angle blunting 09/08 foot and ankle XR (right): no acute fx. some medial malleolar soft tissue swelling. bunion formation by first MTP. 09/08: R knee xr : (-) for acute abnormality 09/08 R tib/fib xr: no fx or subluxation. there is a fabella, vasc calcifications and posterior calcaneal spurring 09/[address]: (-) 09/08 CTAP: bilateral pleural effusions, cardiomegaly, transvenous PPM in place. bilateral flank subcutaneous edema. small amount of blanquita-hepatic free fluid. mild nonspecific pericolonic soft tissue stranding adjacent to the sigmoid colon. ?possible acute recent diverticulitis. cholelithiasis. 09/11 R hip XR: (+) vascular calcifications noted. 09/11 Rib XR: weak inspiration and congestive and infiltrative changes. PPM and R jugular line. old rib trauma to right rib. acute fx not seen. 09/[address]: (-) 09/11: b/l shoulder XR: (-) 09/12 arterial doppler, CORINA: unable to calculate CORINA bilaterally due to medial calcinosis. R dorsalis pedis artery monophasic wave with blunting of PVR waveforms bilaterally at the ankles and metatarsals most significantly the R metatarsal suggesting infrapopliteal dz with critical dz in the right anterior tibial artery. 09/14: XR flat and upright: gallstones, nonspecific bowel pattern. vasc calcifications. no ileus. congestive changes and bilateral effusions and basilar atelectasis. prominent mediastinum, multilead PPM and central line 09/14: Hip/Pelvis XR: (-) 09/14: abdom sono: R pleural effusion and trace ascites, cholelithiasis, heterogeneous liver with no discrete mass. 09/17: CXR: interval insertion ETT with tip in borderline position, 2cm above liz. no pneumo. interval bibasilar consolidation and aispace disease L>R, small bilateral pleural effusion 09/18: CXR: worse, progressive pulmonary and pleural findings 09/19: CXR: ETT removed. R jugular line and PPM and bilateral pulmonary and pleural changes are again noted. since last study, increased and the right changes have diminished 09/20: CXR: congestive changes with bibasilar pleural effusions, atelectasis and edema in the lungs, minimally improved since 09/18/19. Superimposed PNA is not definitely suspected radiographically. HOSPITAL COURSE: Date of Admission:09/08/19 Date of Discharge: 09/29/19 69 y/o/m with PMH significant for HTN, DM, pacemaker, ESRD on dialysis T//S, questionable dementia presented to ED for right foot pain and swelling. Patient was initially being treated for cellulitis, was found to abd RUQ abd pain by daughter. Surgery was consulted and patient had a cholecystectomy done today. Patient not taking appropriate respirations (low Tidal volumes) post-op, decision made by anesthesia to keep patient intubated and sedate overnight for comfort. Since then, pt monitored out of ICU and was on med-surg floor. 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 -Cardio: Dr. Day #Pulm -Acute Hypercapneic/Hypoxic Respiratory Failure -has improved -sat well on 3L NC, wean as tolerated -Maintain SpO2 >92% -needs pre and post on d/c #Renal - ESRD on HD - HD per renal ; next session early tomorrow (09/27) -monitor BP on ARB - will need fistula as an outpt - Nephro: Dr. Dubose #GI s/p lap jody (09/17) -U/S on 09/14 showed cholelithiasis without evidence of intra or extrahepatic biliary duct dilation. gallbladder slightly thickened -GI on board: Dr. Julia Pete #Endo - DM - BGMs, ISS ACHS Levemir 5 units daily at HS. Hold when FS <140 - Endocrine: Dr. Barboza -Hypothroidism - -c/w synthroid #ID - R foot cellulitis - completed 2 wk abx course of cefazolin. afebrile, no white count on d/c; d/c abx - afebrile, w/o leukocytosis currently - c/t monitor blood cx, ucx dc to [facility]. set up for dialysis on Tues AM as outpatient (at 9:45AM) - will need fistula as outpt Minutes to complete discharge: 55 Discharge Summary Problems reviewed: Yes Reason For Visit: CELLULITIS Condition: Stable - Instructions Diet, Activity, Other Instructions: You were in the hospital for the following: -Right foot cellulitis: this was treated with IV antibiotics and wound care -Abdominal pain from cholecystitis (inflamed gall bladder): your gall bladder was removed on 09/17 by a surgeon -Dialysis: you received dialysis through your R chest permacath -Acute on chronic systolic heart failure, heart problems: your heart device was interrogated by the community engagement specialist and was then functioning normally -Initial ICU monitoring: to help monitor your breathing after your surgery, you were later transitioned to the floor for care -Diabetes: Your diabetes was managed by an camp advisor You improved and are being sent to a facility. You are set up for hemodialysis Sunday AM at 9:45AM. You will leave for your facility in the morning after your dialysis today (09/27). Medications -Antibiotics for your R foot cellulitis: please continue with keflex _ -Cardio meds: carvedilol 6.25mg BID, losartan 50mg qd, Isordil 20 mg BID and Hydralazine 25 mg BID -Diabetes: Levemir 5 units daily at HS, insulin sliding scale coverage (novolog ) pre meals and HS Care -You will need wound care for your Right foot ulcer while you are at the facility. -It is important to check your blood glucose and keep your sugar low in order to promote wound healing. Follow up -You will need dialysis as an outpatient. Your first session is at 9:45AM this Sunday. -you will need a fistula placed as an outpatient for your dialysis follow up with Dr. Fitzgerald for vascular surgery and wound care f/u with Dr. Renteria for podiatry Dr. Hernandez for endocrinology Dr. Tse will see you at [facility] for primary care Dr. Day's group can follow for cardiology Referrals: Andrey Renteria MD [Staff Physician] - 1 Week Delfino Fitzgerald DO [Staff Physician] - 2 Weeks Zac Dubose MD [Staff Physician] - 1 Week Henri Day MD [Staff Physician] - 1 Week Maureen Hernandez MD [Staff Physician] - 1 Week Disposition: [facility] - Home Medications Comprehensive Discharge Medication List: Ambulatory Orders Acetaminophen [Tylenol .Regular Strength -] 650 mg PO Q6H PRN tablet 09/27/19 Carvedilol [Coreg -] 6.25 mg PO BID tablet 09/27/19 Diphenhydramine HCl [Benadryl Capsule -] 25 mg PO HS PRN capsule 09/27/19 Donepezil HCl [Aricept -] 10 mg PO DAILY tablet 09/27/19 Insulin (Levemir) [Levemir Vial] 6 units SQ HS units 09/27/19 Insulin Sliding Scale [Novolog Vial Sliding Scale -] 1 vial SQ TIDAC units Isosorbide Dinitrate [Isordil] 20 mg PO BIDISORDIL tablet 09/27/19 Levothyroxine [Synthroid -] 125 mcg PO DAILY@0700 tablet 09/27/19 Losartan Potassium [Cozaar -] 50 mg PO DAILY tablet 09/27/19 Melatonin 10 mg PO HS tab 09/27/19 Pantoprazole Sodium [Protonix -] 40 mg PO DAILY tablet.ec 09/27/19 hydrALAZINE HCL [Apresoline -] 25 mg PO BID tablet 09/27/19 This patient is new to me today: No Emergency Visit: No Critical Care patient: No - Discharge Referral Referred to [facility] No
== END 2019-09-27 18:36 | DRG 987 ==
LOC: JER 12:03 → JERBED 18:57 → J5S 09-09 05:06 → JICU 09-17 18:33 → J6S 09-20 17:20
PROVIDERS: ADMIT Internal Medicine; ATTEND Internal Medicine
PROC: 5A1D70Z Performance of Urinary Filtration, Intermittent, Less than 6 Hours Per Day (ICD-10-PCS; 2019-09-09)
PROC: 5A1D70Z Performance of Urinary Filtration, Intermittent, Less than 6 Hours Per Day (ICD-10-PCS; 2019-09-11)
PROC: 5A1D70Z Performance of Urinary Filtration, Intermittent, Less than 6 Hours Per Day (ICD-10-PCS; 2019-09-13)
PROC: 5A1D70Z Performance of Urinary Filtration, Intermittent, Less than 6 Hours Per Day (ICD-10-PCS; 2019-09-16)
PROC: 0FT44ZZ Resection of Gallbladder, Percutaneous Endoscopic Approach (ICD-10-PCS; principal; 2019-09-17 13:00)
PROC: 5A1D70Z Performance of Urinary Filtration, Intermittent, Less than 6 Hours Per Day (ICD-10-PCS; 2019-09-18)
PROC: 5A1D70Z Performance of Urinary Filtration, Intermittent, Less than 6 Hours Per Day (ICD-10-PCS; 2019-09-20)
PROC: 5A1D70Z Performance of Urinary Filtration, Intermittent, Less than 6 Hours Per Day (ICD-10-PCS; 2019-09-23)
PROC: 5A1D70Z Performance of Urinary Filtration, Intermittent, Less than 6 Hours Per Day (ICD-10-PCS; 2019-09-25)
PROC: 5A1D70Z Performance of Urinary Filtration, Intermittent, Less than 6 Hours Per Day (ICD-10-PCS; 2019-09-27)
DX: L03.115 Cellulitis of right lower limb (principal); J96.01 Acute respiratory failure with hypoxia; J96.02 Acute respiratory failure with hypercapnia; N18.6 End stage renal disease; I50.23 Acute on chronic systolic (congestive) heart failure; K80.00 Calculus of gallbladder with acute cholecystitis without obstruction; I42.9 Cardiomyopathy, unspecified; I24.8 Other forms of acute ischemic heart disease; I13.2 Hypertensive heart and chronic kidney disease with heart failure and with stage 5 chronic kidney disease, or end stage renal disease; J90 Pleural effusion, not elsewhere classified; E11.22 Type 2 diabetes mellitus with diabetic chronic kidney disease; E03.9 Hypothyroidism, unspecified; F03.90 Unspecified dementia, unspecified severity, without behavioral disturbance, psychotic disturbance, mood disturbance, and anxiety; R10.9 Unspecified abdominal pain; M79.671 Pain in right foot; Z86.73 Personal history of transient ischemic attack (TIA), and cerebral infarction without residual deficits; Z95.810 Presence of automatic (implantable) cardiac defibrillator; Z99.2 Dependence on renal dialysis
CPT/HCPCS: 36415; 36600; 70450-TC; 71045-TC-FY; 71046-TC-FY; 71101-TC-RT-FY; 72170-TC-FY; 73030-TC-LT-FY; 73030-TC-RT-FY; 73502-TC-RT-FY; 73562-TC-RT-FY; 73590-TC-RT-FY; 73610-TC-RT-FY; 73630-TC-RT-FY; 74019-TC-FY; 74176-TC; 76705-TC; 80048; 80053; 80061; 81003; 82140; 82272; 82550; 82553; 82803; 82962; 83036; 83721; 83735; 84100; 84443; 84484; 85025; 85027; 85610; 85730; 86704; 86706; 86707; 86708; 86709; 86803; 87040; 87086; 87324; 87340; 87449; 88304-TC; 93005; 93010; 93306-TC; 93923; 93971-TC; 94002; 94760; 94761; 97116-GP; 97161-GP; 99284-25; J0131; J1644; J7030

== ENCOUNTER 2019-10-09 13:04 | Inpatient (IN) | payer OTHER ==
[2019-10-09] MEDS ORDERED: ACETAMINOPHEN 325 MG TABLET (FP) PO ONE (13:22)
--- NOTE | 2019-10-09 13:22 | PDOC ---
History of Present Illness - General Chief Complaint: Shortness of Breath Stated Complaint: SOB Time Seen by Provider: 10/09/19 13:21 History Source: Patient - History of Present Illness Initial Comments: 10/09/19 14:29 Mr. Chau is a 69 w/o man with hx MCI, ESRD on dialysis (), HLD, recent admission for LLE wound, as well as cholecystectomy (09/17/19). Last dialysis Sunday, did not go today. He reports that for the last week he has had RUQ and chest pain, as well as multiple episodes watery diarrhea daily. His surgery was completed at this hospital, without immediate post op complications. He reports diminished appetite and difficulty eating secondary to nausea. Past History - Past Medical History Allergies/Adverse Reactions: Allergies Allergy/AdvReac Type Severity Reaction Status Date / Time No Known Allergies Allergy Verified 10/09/19 13:17 Home Medications: Ambulatory Orders Acetaminophen [Tylenol .Regular Strength -] 650 mg PO Q6H PRN tablet 09/27/19 Carvedilol [Coreg -] 6.25 mg PO BID tablet 09/27/19 Donepezil HCl [Aricept -] 10 mg PO DAILY tablet 09/27/19 Isosorbide Dinitrate [Isordil] 20 mg PO BIDISORDIL tablet 09/27/19 Levothyroxine [Synthroid -] 125 mcg PO DAILY@0700 tablet 09/27/19 Losartan Potassium [Cozaar -] 50 mg PO DAILY tablet 09/27/19 Melatonin 10 mg PO HS tab 09/27/19 hydrALAZINE HCL [Apresoline -] 25 mg PO BID tablet 09/27/19 Albuterol 0.083% Nebulizer Brigid [Ventolin 0.083% Nebulizer Soln -] 1 neb NEB Q6H PRN 10/09/19 Ampicillin Sodium/Sulbactam Na [Unasyn 1.5 gm Vial] 1.5 gm IV Q6H 10/09/19 Buspirone HCl [Buspar -] 5 mg PO BID 10/09/19 Famotidine 20 mg PO BID 10/09/19 Furosemide [Lasix] 40 mg PO DAILY 10/09/19 Insulin Glargine,Hum.rec.anlog [Betzyaglshakira Maldonado U-100] 6 unit SQ HS 10/09/19 Insulin Sliding Scale [Novolog Vial Sliding Scale -] 0 vial SQ ACHS 10/09/19 Ipratropium 0.02% Nebulizer [Atrovent] 1 neb NEB BID 10/09/19 LORazepam [Ativan] 2 mg PO HS 10/09/19 Loperamide HCl [Loperamide] 2 mg PO Q4H PRN 10/09/19 Nitroglycerin Sublingual [Nitrostat -] 0.4 mg SL ONCE PRN 10/09/19 metroNIDAZOLE [Flagyl -] 500 mg PO TID 10/09/19 Cardiac Disorders: Yes (pacemaker) COPD: No Diabetes: Yes GI Disorders: Yes Disorders: Yes (ESRD dialysis tues/donya/sat) HTN: Yes Thyroid Disease: Yes (hypo) - Surgical History Cardiac Surgery: Yes (DEFIBRILLATOR) - Psycho Social/Smoking Cessation Hx Smoking History: Smoker current status UNK Information on smoking cessation initiated: No Hx Alcohol Use: No Drug/Substance Use Hx: No *Physical Exam - Vital Signs Last Vital Signs Temp Pulse Resp BP Pulse Ox 101.3 F H 95 H 16 123/70 100 10/09/19 13:20 10/09/19 13:05 10/09/19 13:05 10/09/19 13:05 10/09/19 13:05 ED Treatment Course - LABORATORY CBC & Chemistry Diagram: 10/09/19 14:00 10/09/19 14:00
[2019-10-09] MEDS ORDERED: ACETAMINOPHEN 325 MG TABLET (FP) ONE (13:34)
[2019-10-09 14:47] LABS: BASO % 0.6 % (0-2.0); EOS % 0.4 % (0-4.5); HEMATOCRIT 36.5 % (35.4-49); HEMOGLOBIN 11.7 GM/dL (11.7-16.9); LYMPH % 27.3 % (8-40); MCH 30.2 pg (25.7-33.7); MEAN CELL VOLUME 94.5 fl (80-96); MEAN PLT VOLUME 8.8 fl (7.5-11.1); MONO % 6.8 % (3.8-10.2); NEUT % 64.9 % (42.8-82.8); PLATELET COUNT 113 K/MM3 (134-434); RBC 3.86 M/mm3 (4.00-5.60); RDW 15.5 % (11.9-15.9); WHITE BLOOD COUNT 4.9 K/mm3 (4.0-10.0)
[2019-10-09 15:06] LABS: PROTHROMBIN TIME (PATIENT) 11.8 SEC (9.7-13.0)
[2019-10-09 15:08] LABS: ACTIVATED PTT 31.1 SECONDS (25.2-36.5)
[2019-10-09 15:10] LABS: ALBUMIN 2.8 g/dl (3.4-5.0); BILIRUBIN,TOTAL 0.5 mg/dL (0.2-1); BLOOD UREA NITROGEN 58.4 mg/dL (7-18); CALCIUM 8.3 mg/dL (8.5-10.1); CREATININE 4.3 mg/dL (0.55-1.3); POTASSIUM 4.7 mmol/L (3.5-5.1); TOT PROT 7.3 g/dl (6.4-8.2)
--- NOTE | 2019-10-09 15:14 | EKG ---
Test Reason : Blood Pressure : / mmHG Vent. Rate : 095 BPM Atrial Rate : 095 BPM P-R Int : 140 ms QRS Dur : 128 ms QT Int : 382 ms P-R-T Axes : 029 167 -39 degrees QTc Int : 480 ms Atrial-sensed ventricular-paced rhythm ABNORMAL ECG WHEN COMPARED WITH ECG OF 11-SEP-2019 16:30, VENT. RATE HAS DECREASED BY 5 BPM Confirmed by NESHA BORREGO MD ([id number]) on 10/09/2019 3:14:19 PM Referred By: Confirmed By:NESHA BORREGO MD
[2019-10-09] MEDS ORDERED: PIPERACILLIN/TAZOB 4.5 GM 4.5 GM in DEXTROSE 5%-WATER 100 ML IVPB ONE (16:08)
[2019-10-09] MEDS ORDERED: VANCOMYCIN HCL 1,500 MG in DEXTROSE 5%-WATER - 500 ML IVPB ONE (16:09)
[2019-10-09] MEDS ORDERED: PIPERACILLIN/TAZOB 4.5 GM 4.5 GM/100 ML BAG IVPB ONE (16:42)
--- NOTE | 2019-10-09 17:17 | PDOC ---
Documentation entered by Dee Pardo SCRIBE, acting as scribe for Nena Mejía MD. Nena Mejía MD: This documentation has been prepared by the Char conner Nirvannie, SCRIBE, under my direction and personally reviewed by me in its entirety. I confirm that the documentation accurately reflects all work, treatment, procedures, and medical decision making performed by me. Attending Attestation - Resident Resident Name: Derrick Del Castillo - ED Attending Attestation I have performed the following: I have examined & evaluated the patient, The case was reviewed & discussed with the resident, I agree w/resident's findings & plan, Exceptions are as noted - HPI HPI: 10/09/19 14:12 Mr Isac Pinzon is a 69 yo M h/o HTN, HLD, CVA, ESRD on dialysis T//, s/p Lap cholecystectomy on 09/18 Pt presents to the ER with a complaint of fever Pt s/p recent admission for LLE wound At that time, was found to have biliary colic and is s/p cholecystectomy (on 09/17/19). Pt reports that he has had cough and congestion for the past week He is not sure about having fevers, but did have fevers today in the ER He has had nausea, decreased po intake - Physicial Exam PE: 10/09/19 17:11 GENERAL: The patient is in no acute distress, Arousable to verbal stimuli ENT: Ears normal, nares patent, oropharynx clear without exudates. Moist mucous membranes. NECK: Normal range of motion, supple LUNGS: Bibasilar crackles, no wheezing HEART: Regular rate and rhythm, normal S1 and S2 without murmur, rub or gallop. ABDOMEN: Soft, nontender, no involuntary guarding, no rebound EXTREMITIES: Normal range of motion, no edema. NEUROLOGICAL: Cranial nerves II through XII grossly intact. Normal speech. No focal neurological deficits. SKIN: Warm, Dry, normal turgor, no rashes or lesions noted. - Medical Decision Making 10/09/19 17:12 Laboratory Tests 10/09/19 10/09/19 10/09/19 14:00 14:00 14:00 WBC 4.9 Hgb 11.7 Hct 36.5 Plt Count 113 L D BUN 58.4 H Creatinine 4.3 H Creatine Kinase 60 Troponin I 0.11 H Influenza A (Rapid) Influenza B (Rapid) 10/09/19 14:00 WBC Hgb Hct Plt Count BUN Creatinine Creatine Kinase Troponin I Influenza A (Rapid) Negative Influenza B (Rapid) Negative EKG: Paced at 95 bpm Chest x-ray: Bibasilar infiltrates CT chest abdomen pelvis without contrast pending Patient ordered for vancomycin and Zosyn Patient seen in the ER by Dr. Dubose We will plan to admit Dialysis tomorrow 10/09/19 18:12 CT reveals lingular infiltrate, bilateral pleural effusions, subcutaneous edema Received call from Dr. Dubose He will dialyze tonight given pt appears fluid overloaded Clinical impression: Fever, initial presentation Fluid overloading, initial presentation
[2019-10-09] MEDS ORDERED: SODIUM CHLORIDE 250 ML IV PRN (17:48)
--- NOTE | 2019-10-09 17:48 | CONSULT ---
Consult Consult Specialty:: Nephrology Reason for Consultation:: ESRD - History of Present Illness Chief Complaint: fever and diarrhea History of Present Illness: Pt s a 69 year old male with pmhx of ESRD, HLD, and s/p cholecystectomy who presents with fever and diarrhea. He also complains of shortness of breath and cough. He was last dialyzed on Sunday. He denies chest pain or palpitations. He is awake and alert. He complains of poor appetite as well. 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) Renal/: Yes: Renal Failure, Hemodialysis Musculoskeletal: Yes: Other (Right plantarmedial heel with deep tissue injury , underlying hematoma which as now opened and draining, no erythema, pain on palpatin noted, no streaking, no edema, no bone exposed) Endocrine: Yes: Diabetes Insipidus - Alcohol/Substance Use Hx Alcohol Use: No - Smoking History Smoking history: Smoker current status UNK - Social History Usual Living Arrangement: Care Home History of Recent Travel: Yes (just arrived yesterday) Home Medications - Allergies Allergies/Adverse Reactions: Allergies Allergy/AdvReac Type Severity Reaction Status Date / Time No Known Allergies Allergy Verified 10/09/19 13:17 - Home Medications Home Medications: Ambulatory Orders Acetaminophen [Tylenol .Regular Strength -] 650 mg PO Q6H PRN tablet 09/27/19 Carvedilol [Coreg -] 6.25 mg PO BID tablet 09/27/19 Donepezil HCl [Aricept -] 10 mg PO DAILY tablet 09/27/19 Isosorbide Dinitrate [Isordil] 20 mg PO BIDISORDIL tablet 09/27/19 Levothyroxine [Synthroid -] 125 mcg PO DAILY@0700 tablet 09/27/19 Losartan Potassium [Cozaar -] 50 mg PO DAILY tablet 09/27/19 Melatonin 10 mg PO HS tab 09/27/19 hydrALAZINE HCL [Apresoline -] 25 mg PO BID tablet 09/27/19 Albuterol 0.083% Nebulizer Brigid [Ventolin 0.083% Nebulizer Soln -] 1 neb NEB Q6H PRN 10/09/19 Ampicillin Sodium/Sulbactam Na [Unasyn 1.5 gm Vial] 1.5 gm IV Q6H 10/09/19 Buspirone HCl [Buspar -] 5 mg PO BID 10/09/19 Famotidine 20 mg PO BID 10/09/19 Furosemide [Lasix] 40 mg PO DAILY 10/09/19 Insulin Glargine,Hum.rec.anlog [Basaglar Kwikpen U-100] 6 unit SQ HS 10/09/19 Insulin Sliding Scale [Novolog Vial Sliding Scale -] 0 vial SQ ACHS 10/09/19 Ipratropium 0.02% Nebulizer [Atrovent] 1 neb NEB BID 10/09/19 LORazepam [Ativan] 2 mg PO HS 10/09/19 Loperamide HCl [Loperamide] 2 mg PO Q4H PRN 10/09/19 Nitroglycerin Sublingual [Nitrostat -] 0.4 mg SL ONCE PRN 10/09/19 metroNIDAZOLE [Flagyl -] 500 mg PO TID 10/09/19 Family Medical History Family History: Denies Review of Systems - Review of Systems Constitutional: reports: Malaise Eyes: reports: No Symptoms HENT: reports: No Symptoms Neck: reports: No Symptoms Cardiovascular: reports: Edema, Shortness of Breath Respiratory: reports: Cough, SOB, SOB on Exertion Gastrointestinal: reports: Diarrhea, Nausea Genitourinary: reports: No Symptoms Musculoskeletal: reports: No Symptoms Neurological: reports: No Symptoms Endocrine: reports: No Symptoms Hematology/Lymphatic: reports: No Symptoms Psychiatric: reports: No Symptoms Physical Exam Vital Signs: Vital Signs Temperature 101.3 F H 10/09/19 13:20 Pulse Rate 95 H 10/09/19 13:05 Respiratory Rate 16 10/09/19 13:05 Blood Pressure 123/70 10/09/19 13:05 O2 Sat by Pulse Oximetry (%) 97 10/09/19 14:28 Constitutional: Yes: Calm Eyes: Yes: Conjunctiva Clear HENT: Yes: Atraumatic Neck: Yes: Supple Cardiovascular: Yes: S1, S2 Respiratory: Yes: On Nasal O2, Rhonchi Gastrointestinal: Yes: Soft Renal/: Yes: WNL Musculoskeletal: Yes: WNL Edema: Yes Edema: LLE: 1+, RLE: 1+ Neurological: Yes: Oriented Psychiatric: Yes: Oriented Labs: CBC, BMP 10/09/19 14:00 10/09/19 14:00 Imaging - Results Cat Scan: Report Reviewed Problem List - Problems (1) Abdominal pain Code(s): R10.9 - UNSPECIFIED ABDOMINAL PAIN (2) Cardiomyopathy Code(s): I42.9 - CARDIOMYOPATHY, UNSPECIFIED Qualifiers: (3) ESRD (end stage renal disease) Code(s): N18.6 - END STAGE RENAL DISEASE (4) HTN (hypertension) Code(s): I10 - ESSENTIAL (PRIMARY) HYPERTENSION Qualifiers: Assessment/Plan Current Medications Generic Name Dose Route Start Last Admin Trade Name Freq PRN Reason Stop Dose Admin Vancomycin HCl 1,500 mg/ 500 mls @ 250 mls/hr 10/09/19 16:09 10/09/19 17:36 Dextrose IVPB 10/09/19 18:08 250 mls/hr ONCE ONE Administration Impression 1. ESRD 2. HTN 3. cellulitis 4. DM 5. hypothyroidism 6. pleural effusion Plan - will arrange for HD for volume - follow cultures - abx per medical team - discussed with ER
--- NOTE | 2019-10-09 19:20 | PN ---
Teaching Attending Note Name of Resident: Lia Hayes ATTENDING PHYSICIAN STATEMENT I saw and evaluated the patient. I reviewed the resident's note and discussed the case with the resident. I agree with the resident's findings and plan as documented. SUBJECTIVE: Patient is a 69 year old man with a PMH of HTN, CVA, Pacemaker, Insulin-treated DM, HLD, ESRD on hemodialysis (//), LLE wound, s/p Laparoscopic cholecystectomy on 09/18 who presents to the ER with a complaint of fever. Just came to [place] from OR in [place] for further medical care. Daughter arranged for outpatient dialysis to continue today (last session was Sunday and complete) as outpatient but since arriving yesterday patient complained of increased pain and swelling to R foot. no f/v/motor/sensory deficit. Of note, he had a recent fall at OR with R sided injury. Denies any acute foot pain after that fall but reporting some RUQ pain without GI complaints. He reports that for the last week he has had RUQ and chest pain, as well as multiple episodes watery diarrhea daily. His surgery was completed at this hospital, without immediate postop complications. He reports diminished appetite and difficulty eating secondary to nausea. Had contact with a sick family member. Denies tobacco, alcohol or illicit drug use. Used to drink heavily. OBJECTIVE: Alert Vital Signs Period Temp Pulse Resp BP Sys/Palacios Pulse Ox Last 24 Hr 98.0 F-101.3 F 79-95 16-18 123-143/70-85 97-100 HEENT: No Jaundice, eye redness or discharge, PERRLA, EOMI. Normocephalic, atraumatic. External ears are normal and hearing is grossly intact. No nasal discharge. Neck: Supple, nontender. No palpable adenopathy or thyromegaly. No JVD Chest: Right chest permacath. Good effort. Wheezing and bibasilar crackles. Clear to percussion. Heart: Regular. No S3, rub or murmur Abdomen: Not distended, soft, nontender and no HSM. No rebound or guarding. Normal bowel sounds. Ext: Peripheral pulses intact. No leg edema. Right heel ulcer. Skin: Warm and dry. No petechiae, rash or ecchymosis. Neuro: Alert. Oriented x3. CN 2-12 grossly intact. Sensation grossly intact in all four extremities and DTR are symmetric. Psych: Appropriate mood and affect. Good insight. Current Medications Generic Name Dose Route Start Last Admin Trade Name Freq PRN Reason Stop Dose Admin Sodium Chloride 250 mls @ 3,000 mls/hr 10/09/19 17:48 Normal Saline - IV 10/10/19 17:48 PRN PRN Hypotension during Dialysis Home Medications Medication Instructions Recorded Acetaminophen [Tylenol .Regular 650 mg PO Q6H PRN tablet 09/27/19 Strength -] Carvedilol [Coreg -] 6.25 mg PO BID tablet 09/27/19 Donepezil HCl [Aricept -] 10 mg PO DAILY tablet 09/27/19 Isosorbide Dinitrate [Isordil] 20 mg PO BIDISORDIL tablet 09/27/19 Levothyroxine [Synthroid -] 125 mcg PO DAILY@0700 tablet 09/27/19 Losartan Potassium [Cozaar -] 50 mg PO DAILY tablet 09/27/19 Melatonin 10 mg PO HS tab 09/27/19 hydrALAZINE HCL [Apresoline -] 25 mg PO BID tablet 09/27/19 Albuterol 0.083% Nebulizer Brigid 1 neb NEB Q6H PRN 10/09/19 [Ventolin 0.083% Nebulizer Soln -] Ampicillin Sodium/Sulbactam Na 1.5 gm IV Q6H 10/09/19 [Unasyn 1.5 gm Vial] Buspirone HCl [Buspar -] 5 mg PO BID 10/09/19 Famotidine 20 mg PO BID 10/09/19 Furosemide [Lasix] 40 mg PO DAILY 10/09/19 Insulin Glargine,Hum.rec.anlog 6 unit SQ HS 10/09/19 [Basaglar Kwikpen U-100] Insulin Sliding Scale [Novolog 0 vial SQ ACHS 10/09/19 Vial Sliding Scale -] Ipratropium 0.02% Nebulizer 1 neb NEB BID 10/09/19 [Atrovent] LORazepam [Ativan] 2 mg PO HS 10/09/19 Loperamide HCl [Loperamide] 2 mg PO Q4H PRN 10/09/19 Nitroglycerin Sublingual 0.4 mg SL ONCE PRN 10/09/19 [Nitrostat -] metroNIDAZOLE [Flagyl -] 500 mg PO TID 10/09/19 Abnormal Lab Results 10/09/19 10/09/19 10/09/19 14:00 14:00 14:00 RBC 3.86 L Plt Count 113 L D BUN 58.4 H Creatinine 4.3 H Random Glucose 144 H Calcium 8.3 L AST 65 H Alkaline Phosphatase 199 H Troponin I 0.11 H Albumin 2.8 L ASSESSMENT AND PLAN: 1. Pneumonia - CXR shows cardiomegaly, congestive changes, pacemaker in place, right chest permacath, obscured left costophrenic angle. CT chest shows lingular infiltrate, bilateral pleural effusion and bibaslar compressive atelectasis. CT abdomen/pelvis notes small amount of free fluid in abdomen and pelvis and colonic diverticulosis. Flu swab was negative. Sepsis workup done. Being treated with IV vancomycin and zosyn - adjusted for GFR. Will treat with duoneb, solumedrol and symbicort. Will give Low platelets may be due to infection - will monitor daily. Will send any diarrhea stool for studies including C.Diff, provide daily wound care for heel ulcer, consult wound care and get MRCP to rule out obstructing stones. EKG shows ventricular-paced rhythm at a rate of 95. Elevated troponin may be due to demand ischemia - he has a recent history of elevated troponin with a peak of 0.60 on 09/08/19. Will trend troponin, monitor on telemetry and rule out ACS. Get ECHO. Will continue comprehensive care for all of patients comorbid conditions. 2. Hypoalbuminemia - Possibly due to combined effects of malnutrition and inflammation associated with comorbid chronic conditions. Will ensure adequate dietary protein intake and also consult lead data entry operator. 3. DM For now, we will hold the home diabetes drugs and implement sliding scale insulin regimen. Provide comprehensive diabetes care with patient teaching and counseling about the importance of adherence to prescribed diabetes regimen, euglycemia, eye care and foot care. 4. ESRD - Will consult nephrology to arrange for hemodialysis and ensure adequate dialytic fluid removal. Avoid nephrotoxic agents such as NSAIDS, aminoglycosides, contrast dyes and certain Alternative medicine products. 5. Polypharmacy - Will liaise with patient's PCP to discontinue medications that are not absolutely essential. 6. Hypertension - Restart suitable outpatient antihypertensive drugs when clinically appropriate. Revise regimen to ensure [id number] excellent BP control and drug and alcohol counselor patient on the injurious effects of uncontrolled hypertension. Nonpharmacologic measures to control hypertension like weight loss , salt restriction and exercise discussed. Importance of adherence to treatment regimen and attainment of normotension emphasized. 7. DVT prophylaxis - Heparin 5000u sq tid. 8. Advance directives - Full code
[2019-10-09] MEDS ORDERED: ALBUTEROL SO4 2.5/IPRATROPIUM 0.5 INH SOL 3 ML VIAL.NEB. NEB PRN (20:59)
[2019-10-09] MEDS ORDERED: MELATONIN 5 MG TABLETS PO ONE (23:47)
[2019-10-09] MEDS ORDERED: MELATONIN 5 MG TABLETS ONE (23:52)
[2019-10-10 00:32] LABS: EPI CELLS 3.8 /HPF (0-5/HPF); HYALINE CASTS 12 /lpf (0-8); URINE APPEARANCE CLOUDY; URINE BACTERIA 4.6 /hpf (NEGATIVE); URINE BILIRUBIN NEGATIVE (NEGATIVE); URINE COLOR DK YELLOW; URINE GLUCOSE (UA) 1+ (NEGATIVE); URINE KETONE NEGATIVE (NEGATIVE); URINE LEUK ESTERASE NEGATIVE (NEGATIVE); URINE NITRITE NEGATIVE (NEGATIVE); URINE PROTEIN 4+ (NEGATIVE); URINE RBC 1 /hpf (0-4); URINE WBC 7 /hpf (0-5)
--- NOTE | 2019-10-10 01:27 | HP ---
CHIEF COMPLAINT: SOB, diarrhea, cough PCP: none HISTORY OF PRESENT ILLNESS: Hx from daughter 69 w/o man with hx AR, ESRD on dialysis (), HLD, hypothyroidism, DM, former alcoholic until jun 2019, recent admission for LLE wound, as well as cholecystectomy (09/17/19) presenting to ED from [place] for fever, diarrhea, cough and SOB. Per daughter, Pt has been feeling sick since last after eating a sandwich after his dialysis session. According to the daughter, Pt begin to complain of diffuse and crampy abdominal pain until sunday when he also began to experience non bloody watery diarrhea.Around the same time, she noted that he had a barking cough that later became productive of of non bloody whitish/yellow sputum And shortness of breath requiring multiple breathing treatment. She further states that [place] perfomed stool analysis, blood work, abdominal US (all results negative) and administed antibiotics for the abdominal symptoms. Daughter admitted to coming in contact with pt while recovering from a URI. Pt denies any chest pain, palpitations, N/V, changes in urine or bowel movement. Last dialysis was this morning as sunday was holiday. ER course was notable for: (1) VS for fever 101.3->98, CBC with thrombocytopenia, CMP witg BUN/Cr 58.4/4.3 , Ca 8.3, AST 65, ALP 199, trop 0.11 ->0.09 (2) Chest and Abdominal CT showing A lingular infiltrate is noted. Moderate bilateral pleural effusions are noted with resultant bibasilar compressive atelectasis. These pleural effusions appear mildly increased in size in comparison to an abdomen/pelvic CT study of 09/08/2019. Bilateral flank subcutaneous edema is seen which appears somewhat increased. Cardiomegaly. Transvenous cardiac pacemaker in place. Right internal jugular venous catheter in place with the catheter tip at the superior cavoatrial junction. Status post interval cholecystectomy in comparison to the 09/08/2029 CT exam. A small amount of free fluid is noted within the abdomen and pelvis which appears mildly increased. Colonic diverticulosis. Possible bilateral nonobstructing renal calculi versus and/or atherosclerotic vascular calcifications. (3) Dr Dubose consulted and sent pt for HD and Dr Avila for post cholecystectomy complaints of diarrhea Recent Travel: none PAST MEDICAL HISTORY: as above PAST SURGICAL HISTORY:Heart surgery and lap jody Social History: Smoking:former smoker pack year unknown by daughter and pt wasnt willing to talk as he was too SOB Alcohol: former since jun 2019 Drugs: denies Allergies No Known Allergies Allergy (Verified 10/09/19 13:17) HOME MEDICATIONS: Home Medications Medication Instructions Recorded Acetaminophen [Tylenol .Regular 650 mg PO Q6H PRN tablet 09/27/19 Strength -] Carvedilol [Coreg -] 6.25 mg PO BID tablet 09/27/19 Donepezil HCl [Aricept -] 10 mg PO DAILY tablet 09/27/19 Isosorbide Dinitrate [Isordil] 20 mg PO BIDISORDIL tablet 09/27/19 Levothyroxine [Synthroid -] 125 mcg PO DAILY@0700 tablet 09/27/19 Losartan Potassium [Cozaar -] 50 mg PO DAILY tablet 09/27/19 Melatonin 10 mg PO HS tab 09/27/19 hydrALAZINE HCL [Apresoline -] 25 mg PO BID tablet 09/27/19 Albuterol 0.083% Nebulizer Brigid 1 neb NEB Q6H PRN 10/09/19 [Ventolin 0.083% Nebulizer Soln -] Ampicillin Sodium/Sulbactam Na 1.5 gm IV Q6H 10/09/19 [Unasyn 1.5 gm Vial] Buspirone HCl [Buspar -] 5 mg PO BID 10/09/19 Famotidine 20 mg PO BID 10/09/19 Furosemide [Lasix] 40 mg PO DAILY 10/09/19 Insulin Glargine,Hum.rec.anlog 6 unit SQ HS 10/09/19 [Basaglar Kwikpen U-100] Insulin Sliding Scale [Novolog 0 vial SQ ACHS 10/09/19 Vial Sliding Scale -] Ipratropium 0.02% Nebulizer 1 neb NEB BID 10/09/19 [Atrovent] LORazepam [Ativan] 2 mg PO HS 10/09/19 Loperamide HCl [Loperamide] 2 mg PO Q4H PRN 10/09/19 Nitroglycerin Sublingual 0.4 mg SL ONCE PRN 10/09/19 [Nitrostat -] metroNIDAZOLE [Flagyl -] 500 mg PO TID 10/09/19 REVIEW OF SYSTEMS CONSTITUTIONAL: fever,loss of appetite Absent: chills, diaphoresis, generalized weakness, malaise, weight change HEENT: Absent: rhinorrhea, nasal congestion, throat pain, throat swelling, difficulty swallowing, mouth swelling, ear pain, eye pain, visual changes CARDIOVASCULAR: Absent: chest pain, syncope, palpitations, irregular heart rate, lightheadedness , peripheral edema RESPIRATORY: cough, shortness of breath Absent: dyspnea with exertion, orthopnea, wheezing, stridor, hemoptysis GASTROINTESTINAL: abdominal pain, diarrhea Absent: abdominal distension, nausea, vomiting, constipation, melena, hematochezia GENITOURINARY: Absent: dysuria, frequency, urgency, hesitancy, hematuria, flank pain, genital pain MUSCULOSKELETAL: Absent: myalgia, arthralgia, joint swelling, back pain, neck pain SKIN: Absent: rash, itching, pallor HEMATOLOGIC/IMMUNOLOGIC: Absent: easy bleeding, easy bruising, lymphadenopathy, frequent infections ENDOCRINE: Absent: unexplained weight gain, unexplained weight loss, heat intolerance, cold intolerance NEUROLOGIC: Absent: headache, focal weakness or paresthesias, dizziness, unsteady gait, seizure, mental status changes, bladder or bowel incontinence PSYCHIATRIC: Absent: anxiety, depression, suicidal or homicidal ideation, hallucinations. PHYSICAL EXAMINATION Vital Signs - 24 hr 10/09/19 10/09/19 10/09/19 13:05 13:20 13:44 Temperature 101.3 F H Pulse Rate 95 H Pulse Rate [ Left Radial] Respiratory 16 Rate Blood Pressure 123/70 Blood Pressure [Right Arm] O2 Sat by Pulse 100 97 Oximetry (%) 10/09/19 10/09/19 10/09/19 14:28 18:12 19:05 Temperature 98.0 F Pulse Rate 86 Pulse Rate [ 81 Left Radial] Respiratory 18 Rate Blood Pressure 134/85 Blood Pressure 126/81 [Right Arm] O2 Sat by Pulse 97 97 Oximetry (%) 10/09/19 10/09/19 10/09/19 19:10 19:41 20:10 Temperature Pulse Rate 83 79 82 Pulse Rate [ Left Radial] Respiratory 18 18 18 Rate Blood Pressure 134/81 143/81 153/72 Blood Pressure [Right Arm] O2 Sat by Pulse Oximetry (%) 10/09/19 10/09/19 10/09/19 20:40 21:10 21:40 Temperature Pulse Rate 73 76 79 Pulse Rate [ Left Radial] Respiratory 18 18 18 Rate Blood Pressure 140/80 144/79 139/90 Blood Pressure [Right Arm] O2 Sat by Pulse Oximetry (%) 10/09/19 10/09/19 10/10/19 22:10 22:19 00:46 Temperature Pulse Rate 75 85 Pulse Rate [ 79 Left Radial] Respiratory 18 18 18 Rate Blood Pressure 144/82 137/87 Blood Pressure 149/86 [Right Arm] O2 Sat by Pulse 95 Oximetry (%) GENERAL: Awake, alert, and fully oriented, in mod distress. HEAD: Normal with no signs of trauma. EYES: Pupils equal, round and reactive to light, extraocular movements intact, sclera anicteric, conjunctiva clear. No lid lag. EARS, NOSE, THROAT: oropharynx clear without exudates. Moist mucous membranes. NECK: Normal range of motion, supple without lymphadenopathy, JVD, or masses. LUNGS: Breath sounds equal but reduced with presence of coarse crackles and wheezing. HEART: Regular rate and rhythm, normal S1 and S2 without murmur, rub or gallop. ABDOMEN: Soft, epigastric tender, not distended, normoactive bowel sounds, no guarding, no rebound, no masses. No hepatomegaly or splenomegaly. MUSCULOSKELETAL: Normal range of motion at all joints. No bony deformities or tenderness. No CVA tenderness. UPPER EXTREMITIES: 2+ pulses, warm, well-perfused. No cyanosis. No clubbing. No peripheral edema. LOWER EXTREMITIES: 2+ pulses, warm, well-perfused. No calf tenderness. No peripheral edema. SKIN: R heel wound Laboratory Results - last 24 hr 10/09/19 10/09/19 10/09/19 14:00 14:00 14:00 WBC 4.9 RBC 3.86 L Hgb 11.7 Hct 36.5 MCV 94.5 MCH 30.2 MCHC 32.0 RDW 15.5 Plt Count 113 L D MPV 8.8 Absolute Neuts (auto) 3.2 Neutrophils % 64.9 Lymphocytes % 27.3 D Monocytes % 6.8 Eosinophils % 0.4 Basophils % 0.6 Nucleated RBC % 0 PT with INR INR PTT (Actin FS) Sodium 138 Potassium 4.7 Chloride 106 Carbon Dioxide 24 Anion Gap 9 BUN 58.4 H Creatinine 4.3 H Est GFR (CKD-EPI)AfAm 15.09 Est GFR (CKD-EPI)NonAf 13.02 POC Glucometer Random Glucose 144 H Lactic Acid 1.2 Calcium 8.3 L Total Bilirubin 0.5 AST 65 H ALT 32 Alkaline Phosphatase 199 H Creatine Kinase Troponin I Total Protein 7.3 Albumin 2.8 L Lipase Urine Color Urine Appearance Urine pH Ur Specific [place] Urine Protein Urine Glucose (UA) Urine Ketones Urine Blood Urine Nitrite Urine Bilirubin Urine Urobilinogen Ur Leukocyte Esterase Urine WBC (Auto) Urine RBC (Auto) Urine Casts (Auto) U Epithel Cells (Auto) Urine Bacteria (Auto) Influenza A (Rapid) Influenza B (Rapid) 10/09/19 10/09/19 10/09/19 14:00 14:00 14:00 WBC RBC Hgb Hct MCV MCH MCHC RDW Plt Count MPV Absolute Neuts (auto) Neutrophils % Lymphocytes % Monocytes % Eosinophils % Basophils % Nucleated RBC % PT with INR 11.80 INR 1.00 PTT (Actin FS) 31.1 Sodium Potassium Chloride Carbon Dioxide Anion Gap BUN Creatinine Est GFR (CKD-EPI)AfAm Est GFR (CKD-EPI)NonAf POC Glucometer Random Glucose Lactic Acid Calcium Total Bilirubin AST ALT Alkaline Phosphatase Creatine Kinase 60 Troponin I 0.11 H Total Protein Albumin Lipase 254 Urine Color Urine Appearance Urine pH Ur Specific Cel[place] Urine Protein Urine Glucose (UA) Urine Ketones Urine Blood Urine Nitrite Urine Bilirubin Urine Urobilinogen Ur Leukocyte Esterase Urine WBC (Auto) Urine RBC (Auto) Urine Casts (Auto) U Epithel Cells (Auto) Urine Bacteria (Auto) Influenza A (Rapid) Negative Influenza B (Rapid) Negative 10/09/19 10/10/19 10/10/19 23:57 00:00 00:05 WBC RBC Hgb Hct MCV MCH MCHC RDW Plt Count MPV Absolute Neuts (auto) Neutrophils % Lymphocytes % Monocytes % Eosinophils % Basophils % Nucleated RBC % PT with INR INR PTT (Actin FS) Sodium Potassium Chloride Carbon Dioxide Anion Gap BUN Creatinine Est GFR (CKD-EPI)AfAm Est GFR (CKD-EPI)NonAf POC Glucometer 164 Random Glucose Lactic Acid Calcium Total Bilirubin AST ALT Alkaline Phosphatase Creatine Kinase Troponin I 0.09 H Total Protein Albumin Lipase Urine Color Dk yellow Urine Appearance Cloudy Urine pH 5.0 Ur Specific Cel[place] 1.029 Urine Protein 4+ H Urine Glucose (UA) 1+ H Urine Ketones Negative Urine Blood Negative Urine Nitrite Negative Urine Bilirubin Negative Urine Urobilinogen 1.0 Ur Leukocyte Esterase Negative Urine WBC (Auto) 7 Urine RBC (Auto) 1 Urine Casts (Auto) 12 U Epithel Cells (Auto) 3.8 Urine Bacteria (Auto) 4.6 Influenza A (Rapid) Influenza B (Rapid) ASSESSMENT/PLAN: 69 w/o man with hx AR, ESRD on dialysis (//Sun), HLD, hypothyroidism, DM, former alcoholic until jun 2019, recent admission for LLE wound, as well as cholecystectomy (09/17/19) presenting to ED from [place] for fever, diarrhea, cough and SOB admitted for Acute CHF/ COPD exacerbation. Acute CHF exacerbation 2/2 fluid overload and viral illness->PNA cont HD to reduce fluid load. Dr Dubose consulted and will evaluate the pt tomorrow for medication and further dialysis sessions strict I&Os daily weight <2 L fluid and salt restriction Last Echo on last admission showed EF of 20-25% severe hypokinesis and mild valvular disease cardio Dr Ramirez consulted CHF meds once stable and med rec COPD exacerbation 2/2 PNA as evidenced by symptoms ( fever, cough, SOB) and CT findings ol infiltrate cont duonebs symbicort solumedrol 40 mg Q8h due to NH history vanc and zosyn for emperic coverage until sputum and blood culture speciation and sensitivity ID Dr Keith consulted for antibiotic dosing and recommendations Sputum and blood cultures sent Urin legionella and strep antigen ICS 2L NC Diarrhea poss due to GE /c.diff vs post cholecystectomy symptoms began after sandwich. Pt had lap jody in 09/17/19 AST 65 ALP 199. Last US showed gallstones but no liver changes Monitor LFTs for now [facility] administered antibiotics per daughter stool analysis with O&P and WBC Stool C diff ordered Dr Avila consulted for post jody eval and abnormal LFTs with diarrhea by ED Elevated troponins most likely due to ESRD (demand) Elevated troponin may be due to demand ischemia - he has a recent history of elevated troponin with peak of 0.60 on 09/08/19. ECHO. no chest pain, NO ST or T wave changes on EKG just atrial sensed and ventricular paced initial trop 0.11 ->0.09 trend trops Thrombocytopenia Most likely due to his infection monitor with CBC for now R heel wound most likely pressure related keep dressing apply pressure booties wound care Dr Fitzgerald consulted Hypothyroidism cont home synthroid DM BGM ISS FEN No standing fluids in setting of overload state Na controlled diet monitor electrolytes DVT hep Sub Q Admit to med surge Visit type - Emergency Visit Emergency Visit: Yes ED Registration Date: 10/09/19 Care time: The patient presented to the Emergency Department on the above date and was hospitalized for further evaluation of their emergent condition. - New Patient This patient is new to me today: Yes Date on this admission: 10/10/19 - Critical Care Critical Care patient: No ATTENDING PHYSICIAN STATEMENT I saw and evaluated the patient. I reviewed the resident's note and discussed the case with the resident. I agree with the resident's findings and plan as documented. SUBJECTIVE: OBJECTIVE: ASSESSMENT AND PLAN:
[2019-10-10] MEDS: methylPREDNISolone NA SUCC 40 MG/1 ML VIAL IVPUSH SCH ×3 (01:53→18:01)
[2019-10-10] MEDS: INSULIN SLIDING SCALE (NOVOLOG) 1 VIAL SQ SCH ×5 (06:47→22:54)
[2019-10-10] MEDS: HEPARIN NA (PORCINE) 5,000 UNITS/ML 1ML VIAL SQ SCH ×3 (06:48→22:55)
[2019-10-10] MEDS: LEVOTHYROXINE NA 125 MCG TABLET (FP) PO SCH (06:48)
[2019-10-10] MEDS: FAMOTIDINE 20 MG TABLET PO SCH (10:24)
[2019-10-10 10:48] LABS: ALBUMIN 2.5 g/dl (3.4-5.0); BILIRUBIN,TOTAL 0.5 mg/dL (0.2-1); BLOOD UREA NITROGEN 34.5 mg/dL (7-18); CALCIUM 7.7 mg/dL (8.5-10.1); CREATININE 3.2 mg/dL (0.55-1.3); MAGNESIUM 2.1 mg/dL (1.8-2.4); PHOSPHOROUS 4.3 mg/dL (2.5-4.9); POTASSIUM 4.1 mmol/L (3.5-5.1); TOT PROT 6.6 g/dl (6.4-8.2)
[2019-10-10 10:56] LABS: BASO % 0.4 % (0-2.0); EOS % 0.1 % (0-4.5); HEMATOCRIT 34.8 % (35.4-49); HEMOGLOBIN 11.4 GM/dL (11.7-16.9); LYMPH % 14.5 % (8-40); MCH 30.6 pg (25.7-33.7); MCHC 32.8 g/dl (32.0-35.9); MEAN CELL VOLUME 93.5 fl (80-96); MEAN PLT VOLUME 9.3 fl (7.5-11.1); MONO % 1.9 % (3.8-10.2); NEUT % 83.1 % (42.8-82.8); PLATELET COUNT 106 K/MM3 (134-434); RBC 3.72 M/mm3 (4.00-5.60); RDW 15.5 % (11.9-15.9)
--- NOTE | 2019-10-10 11:50 | PN ---
Progress Note (short form) - Note Progress Note: ID consult dictated imp/reccd 69 yo man NHR- severe cardiomyopathy, esrd/hd, recent lap choly 09/17, chronic heel ulcer- admitted 09/08 to 09/27 and discharged to [facility] while at the [facility] he developed abdominal pain and diarrhea and cough and was started on unasyn and po flagyl on 10/07 he had fever of 101 yesterday and was sent to ED ct scan chest/abd/pelvis with lingular infiltrated and increased flank edema he had HD yesterday for volume removal reports diarrhea at nd- none since admission to the hospital no colitis on ct scan by report fever- ?pneumonia received vanco/zosyn in ED no further fevers but is on solumedrol no diarrhea f/u cultures zosyn for HAP cdiff if diarrhea recurs surgery to evaluate heel ulcer Problem List - Problems (1) Fever Code(s): R50.9 - FEVER, UNSPECIFIED (2) Pneumonia Code(s): J18.9 - PNEUMONIA, UNSPECIFIED ORGANISM (3) ESRD (end stage renal disease) Code(s): N18.6 - END STAGE RENAL DISEASE (4) Heel ulcer Code(s): L97.409 - NON-PRS CHRONIC ULCER OF UNSP HEEL AND MIDFOOT W UNSP SEVERT (5) Cardiomyopathy Code(s): I42.9 - CARDIOMYOPATHY, UNSPECIFIED Qualifiers:
--- NOTE | 2019-10-10 11:59 | ECHO ---
Name: LASHAUN ROQUEJESSICA Exam:Adult Echocardiogram Study Date: 10/10/2019 10:44 AM Age: 69 yrs Reason For Study: elevated troponin Height: 66 in Weight: 163 lb BSA: 1.8 m2 MMode/2D Measurements & Calculations IVSd: 0.81 cm Ao root diam: 3.4 cm LVIDd: 5.8 cm LA dimension: 3.7 cm LVIDs: 4.7 cm LVPWd: 0.96 cm EDV(Teich): 166.7 ml LVOT diam: 2.0 cm ESV(Teich): 100.0 ml LAV (MOD-bp): 51.5 ml Doppler Measurements & Calculations MV E max vle: 97.5 cm/sec Ao V2 max: 93.7 cm/sec MV A max : 53.4 cm/sec Ao max P.5 mmHg MV E/A: 1.8 AI P1/2t: 439.7 msec MV dec time: 0.15 sec LILI(V,D): 2.8 cm2 AI max : 397.0 cm/sec LV V1 max P.9 mmHg AI max P.1 mmHg LV V1 max: 85.9 cm/sec AI dec slope: 264.5 cm/sec2 MR max : 454.0 cm/sec TR max : 288.8 cm/sec MR max P.9 mmHg TR max P.5 mmHg PA V2 max: 67.9 cm/sec Med Peak E' : 5.4 cm/sec PA max P.8 mmHg Med E/e': 17.9 Lat Peak E' : 6.5 cm/sec Lat E/e': 14.9 PI Vmax: 154.7 cm/sec Left Ventricle The left ventricle is mildly dilated. Ejection Fraction = 20-25%. Left ventricular systolic function is severely reduced. There is severe global hypokinesis of the left ventricle. Right Ventricle The right ventricle is grossly normal size. There is a pacemaker lead in the right ventricle. The rig ht ventricular systolic function is grossly normal. Atria The left atrium is mildly dilated. Right atrial size is normal. Mitral Valve There is mild mitral valve thickening. There is no mitral valve stenosis. There is moderate mitral regurgitation. Tricuspid Valve The tricuspid valve is not well visualized, but is grossly normal. There is moderate tricuspid regurg itation. Right ventricular systolic pressure is elevated at 40-50mmHg. Aortic Valve There is mild aortic sclerosis.;. No hemodynamically significant valvular aortic stenosis. Mild aorti c regurgitation. Pulmonic Valve The pulmonic valve is not well seen, but is grossly normal. There is no pulmonic valvular stenosis. M ild pulmonic valvular regurgitation. Great Vessels The aortic root is normal size. Mildly dilated inferior vena cava. Pericardium/Pleura There is no pericardial effusion. Interpretation Summary The left ventricle is mildly dilated. There is severe global hypokinesis of the left ventricle. Ejection Fraction = 20-25%. Left ventricular systolic function is severely reduced. There is a pacemaker lead in the right ventricle. The left atrium is mildly dilated. There is mild mitral valve thickening. There is moderate mitral regurgitation. There is moderate tricuspid regurgitation. Right ventricular systolic pressure is elevated at 40-50mmHg. There is mild aortic sclerosis.; Mild aortic regurgitation. Mildly dilated inferior vena cava MD Petersen *Luis Fernando 10/10/2019 11:59 AM
[2019-10-10] MEDS ORDERED: PT OWN MED DRAWER 7, Y5N ONE ×2 (12:16→23:13)
[2019-10-10] MEDS ORDERED: PIPERACILLIN/TAZOBACTAM 2.25 GM VIAL IVPB ONE ×2 (12:27→17:32)
[2019-10-10] MEDS ORDERED: DEXTROSE 5%-WATER - 50 ML IVPB ONE ×2 (12:27→17:32)
[2019-10-10] MEDS: PIPERACILLIN/TAZOB 2.25 GM 2.25 GM in DEXTROSE 5%-WATER - 50 ML IVPB SCH ×2 (13:26→18:01)
[2019-10-10] MEDS: BUDESONIDE/FORMETEROL FUMARATE 80/4.5 mcg INHALER IH SCH ×2 (13:27→22:54)
--- NOTE | 2019-10-10 13:50 | CON.CARD ---
Cardiology Consult (text) - Consultation Consultation Note: cc: diarrhea, abd pain, nausea, chest congestion hpi: 69 m hx dementia, htn, dm, syst chf s/p [place] b[facility] icd, esrd on hd, here with diarrhea, abd pain, nausea, chest congestion. No sob cp palps dizzy loc pnd orthopnea le edema. Found to have pna and pleural effs. pmh: per hpi psh: cholecystectomy social: no tob fam: no premature cad ros: per hpi; all others nl meds: Home Medications Medication Instructions Recorded Acetaminophen [Tylenol .Regular 650 mg PO Q6H PRN tablet 09/27/19 Strength -] Carvedilol [Coreg -] 6.25 mg PO BID tablet 09/27/19 Donepezil HCl [Aricept -] 10 mg PO DAILY tablet 09/27/19 Isosorbide Dinitrate [Isordil] 20 mg PO BIDISORDIL tablet 09/27/19 Levothyroxine [Synthroid -] 125 mcg PO DAILY@0700 tablet 09/27/19 Losartan Potassium [Cozaar -] 50 mg PO DAILY tablet 09/27/19 Melatonin 10 mg PO HS tab 09/27/19 hydrALAZINE HCL [Apresoline -] 25 mg PO BID tablet 09/27/19 Albuterol 0.083% Nebulizer Brigid 1 neb NEB Q6H PRN 10/09/19 [Ventolin 0.083% Nebulizer Soln -] Ampicillin Sodium/Sulbactam Na 1.5 gm IV Q6H 10/09/19 [Unasyn 1.5 gm Vial] Buspirone HCl [Buspar -] 5 mg PO BID 10/09/19 Famotidine 20 mg PO BID 10/09/19 Furosemide [Lasix] 40 mg PO DAILY 10/09/19 Insulin Glargine,Hum.rec.anlog 6 unit SQ HS 10/09/19 [Basaglar Kwikpen U-100] Insulin Sliding Scale [Novolog 0 vial SQ ACHS 10/09/19 Vial Sliding Scale -] Ipratropium 0.02% Nebulizer 1 neb NEB BID 10/09/19 [Atrovent] LORazepam [Ativan] 2 mg PO HS 10/09/19 Loperamide HCl [Loperamide] 2 mg PO Q4H PRN 10/09/19 Nitroglycerin Sublingual 0.4 mg SL ONCE PRN 10/09/19 [Nitrostat -] metroNIDAZOLE [Flagyl -] 500 mg PO TID 10/09/19 pe: Vital Signs Period Temp Pulse Resp BP Sys/Pal[place]ios Pulse Ox Last 24 Hr 98.0 F-99.0 F 73-92 17-18 100-153/60-90 95-97 nad no jvd rrr s1s2 no mrg scattered rhonchi bl, nl eff awake alert no jaundice diaphoresis abd nt nd pos bs no jaundice diaphoresis pos dp pt no carotid bruits Laboratory Last Values WBC 3.0 K/mm3 (4.0-10.0) L 10/10/19 09:15 RBC 3.72 M/mm3 (4.00-5.60) L 10/10/19 09:15 Hgb 11.4 GM/dL (11.7-16.9) L 10/10/19 09:15 Hct 34.8 % (35.4-49) L 10/10/19 09:15 MCV 93.5 fl (80-96) 10/10/19 09:15 MCH 30.6 pg (25.7-33.7) 10/10/19 09:15 MCHC 32.8 g/dl (32.0-35.9) 10/10/19 09:15 RDW 15.5 % (11.9-15.9) 10/10/19 09:15 Plt Count 106 K/MM3 (134-434) L 10/10/19 09:15 MPV 9.3 fl (7.5-11.1) 10/10/19 09:15 Absolute Neuts (auto) 2.5 K/mm3 (1.5-8.0) 10/10/19 09:15 Neutrophils % 83.1 % (42.8-82.8) H D 10/10/19 09:15 Lymphocytes % 14.5 % (8-40) D 10/10/19 09:15 Monocytes % 1.9 % (3.8-10.2) L 10/10/19 09:15 Eosinophils % 0.1 % (0-4.5) 10/10/19 09:15 Basophils % 0.4 % (0-2.0) 10/10/19 09:15 Nucleated RBC % 0 % (0-0) 10/10/19 09:15 PT with INR 11.80 SEC (9.7-13.0) 10/09/19 14:00 INR 1.00 (0.83-1.09) 10/09/19 14:00 PTT (Actin FS) 31.1 SECONDS (25.2-36.5) 10/09/19 14:00 Sodium 138 mmol/L (136-145) 10/10/19 09:15 Potassium 4.1 mmol/L (3.5-5.1) 10/10/19 09:15 Chloride 103 mmol/L (98-107) 10/10/19 09:15 Carbon Dioxide 29 mmol/L (21-32) 10/10/19 09:15 Anion Gap 7 MMOL/L (8-16) L 10/10/19 09:15 BUN 34.5 mg/dL (7-18) H 10/10/19 09:15 Creatinine 3.2 mg/dL (0.55-1.3) H 10/10/19 09:15 Est GFR (CKD-EPI)AfAm 21.56 10/10/19 09:15 Est GFR (CKD-EPI)NonAf 18.60 10/10/19 09:15 POC Glucometer 278 UNITS (80-120) 10/10/19 12:03 Random Glucose 189 mg/dL (74-106) H 10/10/19 09:15 Hemoglobin A1c % 8.1 % (4.2-6.3) H 10/10/19 09:15 Lactic Acid 1.2 mmol/L (0.4-2.0) 10/09/19 14:00 Calcium 7.7 mg/dL (8.5-10.1) L 10/10/19 09:15 Phosphorus 4.3 mg/dL (2.5-4.9) 10/10/19 09:15 Magnesium 2.1 mg/dL (1.8-2.4) 10/10/19 09:15 Total Bilirubin 0.5 mg/dL (0.2-1) 10/10/19 09:15 AST 50 U/L (15-37) H 10/10/19 09:15 ALT 27 U/L (13-61) 10/10/19 09:15 Alkaline Phosphatase 173 U/L (45-117) H 10/10/19 09:15 Creatine Kinase 60 U/L (26-308) 10/09/19 14:00 Troponin I 0.09 ng/ml (0.00-0.05) H 10/10/19 09:15 Total Protein 6.6 g/dl (6.4-8.2) 10/10/19 09:15 Albumin 2.5 g/dl (3.4-5.0) L 10/10/19 09:15 Lipase 254 U/L (73-393) 10/09/19 14:00 Urine Color Dk yellow 10/10/19 00:05 Urine Appearance Cloudy 10/10/19 00:05 Urine pH 5.0 (5.0-8.0) 10/10/19 00:05 Ur Specific [place] 1.029 (1.010-1.035) 10/10/19 00:05 Urine Protein 4+ (NEGATIVE) H 10/10/19 00:05 Urine Glucose (UA) 1+ (NEGATIVE) H 10/10/19 00:05 Urine Ketones Negative (NEGATIVE) 10/10/19 00:05 Urine Blood Negative (NEGATIVE) 10/10/19 00:05 Urine Nitrite Negative (NEGATIVE) 10/10/19 00:05 Urine Bilirubin Negative (NEGATIVE) 10/10/19 00:05 Urine Urobilinogen 1.0 mg/dL (0.2-1.0) 10/10/19 00:05 Ur Leukocyte Esterase Negative (NEGATIVE) 10/10/19 00:05 Urine WBC (Auto) 7 /hpf (0-5) 10/10/19 00:05 Urine RBC (Auto) 1 /hpf (0-4) 10/10/19 00:05 Urine Casts (Auto) 12 /lpf (0-8) 10/10/19 00:05 U Epithel Cells (Auto) 3.8 /HPF (0-5/HPF) 10/10/19 00:05 Urine Bacteria (Auto) 4.6 /hpf (NEGATIVE) 10/10/19 00:05 Influenza A (Rapid) Negative (Negative) 10/09/19 14:00 Influenza B (Rapid) Negative (Negative) 10/09/19 14:00 echo 09/2019: lve, lvef 20-25%, global hk, lae, nl rv, mod mr, mod tr, mild ar , rvsp 40-50 09/19/2019 [employer]-D interrogated, 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 08/2019 10 beat run of NSVT self- terminated w/o therapy. echo 08/2019 Moderate dilated with severely decreased LVEF 20-25%, preserved wall motion at base, rest of segments severely HK, mod-severe MR, mild TR, pacemaker RV, mild-mod AR, mild ao dilatation 4.[address] chest: +pna, +mod bl pleural effs ecg: sr, as-vp site a/p: 69 m hx dementia, htn, dm, syst chf s/p [place] [facility] icd, esrd on hd, here with diarrhea, abd pain, nausea, chest congestion. pna: -abx per ID htn: -bp on low side, monitor for now acute systolic chf, biv icd: -lvef severely reduced (?ischemic vs nicm, recently came from [place]) -has biv icd placed 2013, nl fcn when checked here earlier this month -evidence of some vol overload with bl pleural effs, cont HD per renal for vol management -holding home losartan and coreg 2/2 low bp. Can resume likely tomorrow if bp remains stable esrd: -cont hd per renal elevated trops: -borderline trop elevation with flat trend and nl ck, similar to prior baseline values, not c/w acs
[2019-10-10] MEDS ORDERED: ACETAMINOPHEN 325 MG TABLET (FP) PO PRN (15:03)
--- NOTE | 2019-10-10 15:17 | PN ---
Progress Note, Physician History of Present Illness: Pt seen and examined at bedside. He is awake and alert. He feels that the shortness of breath is a little better. - Current Medication List Current Medications: Active Medications Acetaminophen (Tylenol -) 650 mg PO Q6H PRN PRN Reason: FEVER Albuterol Sulfate (Ventolin 0.083% Nebulizer Soln -) 1 amp NEB Q4H PRN PRN Reason: SHORT OF BREATH/WHEEZING Albuterol/Ipratropium (Duoneb -) 1 amp NEB RQID [facility] Budesonide/Formoterol Fumarate (Symbicort 80/4.5mcg -) 2 puff IH BID [facility] Last Admin: 10/10/19 13:27 Dose: 2 puff Famotidine (Pepcid -) 20 mg PO DAILY [facility] Last Admin: 10/10/19 10:24 Dose: 20 mg Heparin Sodium (Porcine) (Heparin -) 5,000 unit SQ TID [facility] Last Admin: 10/10/19 13:28 Dose: 5,000 unit Sodium Chloride (Normal Saline -) 250 mls @ 3,000 mls/hr IV PRN PRN PRN Reason: Hypotension during Dialysis Stop: 10/10/19 17:48 Piperacillin Sod/Tazobactam (Sod 2.25 gm/ Dextrose) 50 mls @ 100 mls/hr IVPB Q8H-IV [facility]; Protocol Last Admin: 10/10/19 13:26 Dose: 100 mls/hr Insulin Aspart (Novolog Vial Sliding Scale -) 1 vial SQ ACHS [facility]; Protocol Last Admin: 10/10/19 12:08 Dose: 6 units Levothyroxine Sodium (Synthroid -) 125 mcg PO DAILY@0700 [facility] Last Admin: 10/10/19 06:48 Dose: 125 mcg Melatonin (Melatonin) 10 mg PO HS [facility] Methylprednisolone Sodium Succinate (Solu-Medrol -) 40 mg IVPUSH Q8H-IV [facility] Last Admin: 10/10/19 10:24 Dose: 40 mg - Objective Vital Signs: Vital Signs Temperature 98.4 F 10/10/19 10:00 Pulse Rate 87 10/10/19 10:00 Respiratory Rate 18 10/10/19 10:00 Blood Pressure 100/60 10/10/19 10:00 O2 Sat by Pulse Oximetry (%) 95 10/10/19 00:46 Constitutional: Yes: Calm Eyes: Yes: Conjunctiva Clear HENT: Yes: Atraumatic Cardiovascular: Yes: S1, S2 Respiratory: Yes: Rhonchi Gastrointestinal: Yes: Soft Genitourinary: Yes: WNL Musculoskeletal: Yes: WNL Extremities: Yes: Other (heel ulcer) Edema: No Neurological: Yes: Oriented Psychiatric: Yes: Oriented Labs: CBC, BMP 10/10/19 09:15 10/10/19 09:15 INR, PTT INR 1.00 (0.83-1.09) 10/09/19 14:00 Problem List - Problems (1) Abdominal pain Code(s): R10.9 - UNSPECIFIED ABDOMINAL PAIN (2) Cardiomyopathy Code(s): I42.9 - CARDIOMYOPATHY, UNSPECIFIED Qualifiers: (3) ESRD (end stage renal disease) Code(s): N18.6 - END STAGE RENAL DISEASE (4) HTN (hypertension) Code(s): I10 - ESSENTIAL (PRIMARY) HYPERTENSION Qualifiers: Assessment/Plan Current Medications Generic Name Dose Route Start Last Admin Trade Name Freq PRN Reason Stop Dose Admin Acetaminophen 650 mg 10/10/19 15:03 Tylenol - PO Q6H PRN FEVER Albuterol Sulfate 1 amp 10/10/19 15:03 Ventolin 0.083% Nebulizer Soln - NEB Q4H PRN SHORT OF BREATH/WHEEZING Albuterol/Ipratropium 1 amp 10/10/19 16:00 Duoneb - NEB RQID OSCAR Budesonide/Formoterol Fumarate 2 puff 10/10/19 10:00 10/10/19 13:27 Symbicort 80/4.5mcg - IH 2 puff BID [facility] Administration Famotidine 20 mg 10/10/19 10:00 10/10/19 10:24 Pepcid - PO 20 mg DAILY [facility] Administration Heparin Sodium (Porcine) 5,000 unit 10/10/19 06:00 10/10/19 13:28 Heparin - SQ 5,000 unit TID [facility] Administration Sodium Chloride 250 mls @ 3,000 mls/hr 10/09/19 17:48 Normal Saline - IV 10/10/19 17:48 PRN PRN Hypotension during Dialysis Piperacillin Sod/Tazobactam 50 mls @ 100 mls/hr 10/10/19 12:15 10/10/19 13:26 Sod 2.25 gm/ Dextrose IVPB 100 mls/hr Q8H-IV [facility] Administration Protocol Insulin Aspart 1 vial 10/09/19 22:00 10/10/19 12:08 Novolog Vial Sliding Scale - SQ 6 units ACHS [facility] Administration Protocol Levothyroxine Sodium 125 mcg 10/10/19 07:00 10/10/19 06:48 Synthroid - PO 125 mcg DAILY@0700 [facility] Administration Melatonin 10 mg 10/10/19 22:00 Melatonin PO HS [facility] Methylprednisolone Sodium Succinate 40 mg 10/10/19 02:00 10/10/19 10:24 Solu-Medrol - IVPUSH 40 mg Q8H-IV [facility] Administration Impression 1. ESRD 2. HTN 3. cellulitis 4. DM 5. hypothyroidism 6. pleural effusion Plan - HD again tomorrow - abx per ID - no diarrhea so far - renal diet - evaluate heal ulcer - follow cultures
--- NOTE | 2019-10-10 15:45 | PN ---
Progress Note (short form) - Note Progress Note: [facility] *LIVE* [facility] Consult Note Patient Name: JESSICA AVALOS Date of : 1950 Patient Status: Inpatient Attending Provider: Burak Kamara Date: 10/10/19 14:25 Initialization Date: 10/10/19 14:25 - Consultation REQUESTING PROVIDER: CONSULT REQUEST: We have been asked to surgically evaluate this patient for e/m of fever possibly related to a recent lap jody. PCP:Burak Kamara MD HISTORY OF PRESENT ILLNESS: This 80 y/o male was xferred to [facility] from a SNF w/# c/o's per the SNF; he has been eating and moving his bowels; he had an uneventful lap jody 09/18/20 h/e I had not seen him in the office post op yet as he was in the SNF. PMHx: CAD/CHF/thyroidHTN/IDDM/COPD/cardiac stents and AICD/ESRD PSHx: lap jody Home Medications Medication Instructions Recorded Acetaminophen [Tylenol .Regular 650 mg PO Q6H PRN tablet 09/27/19 Strength -] Carvedilol [Coreg -] 6.25 mg PO BID tablet 09/27/19 Donepezil HCl [Aricept -] 10 mg PO DAILY tablet 09/27/19 Isosorbide Dinitrate [Isordil] 20 mg PO BIDISORDIL tablet 09/27/19 Levothyroxine [Synthroid -] 125 mcg PO DAILY@0700 tablet 09/27/19 Losartan Potassium [Cozaar -] 50 mg PO DAILY tablet 09/27/19 Melatonin 10 mg PO HS tab 09/27/19 hydrALAZINE HCL [Apresoline -] 25 mg PO BID tablet 09/27/19 Albuterol 0.083% Nebulizer Brigid 1 neb NEB Q6H PRN 10/09/19 [Ventolin 0.083% Nebulizer Soln -] Ampicillin Sodium/Sulbactam Na 1.5 gm IV Q6H 10/09/19 [Unasyn 1.5 gm Vial] Buspirone HCl [Buspar -] 5 mg PO BID 10/09/19 Famotidine 20 mg PO BID 10/09/19 Furosemide [Lasix] 40 mg PO DAILY 10/09/19 Insulin Glargine,Hum.rec.anlog 6 unit SQ HS 10/09/19 [Basaglar Kwikpen U-100] Insulin Sliding Scale [Novolog 0 vial SQ ACHS 10/09/19 Vial Sliding Scale -] Ipratropium 0.02% Nebulizer 1 neb NEB BID 10/09/19 [Atrovent] LORazepam [Ativan] 2 mg PO HS 10/09/19 Loperamide HCl [Loperamide] 2 mg PO Q4H PRN 10/09/19 Nitroglycerin Sublingual 0.4 mg SL ONCE PRN 10/09/19 [Nitrostat -] metroNIDAZOLE [Flagyl -] 500 mg PO TID 10/09/19 Allergies Allergy/AdvReac Type Severity Reaction Status Date / Time No Known Allergies Allergy Verified 10/09/19 13:17 REVIEW OF SYSTEMS: CONSTITUTIONAL: Present: fever, chills, diaphoresis, generalized weakness, malaise, loss of appetite CARDIOVASCULAR: Present: palpitations' lightheadedness, peripheral edema RESPIRATORY: Absent: cough, shortness of breath, dyspnea with exertion, wheezing, stridor, hemoptysis GASTROINTESTINAL: Present: abdominal pain, abdominal distension, nausea diarrhea GENITOURINARY: Absent: dysuria, frequency, urgency, hesitancy, hematuria, flank pain, genital pain MUSCULOSKELETAL: Absent: myalgia, arthralgia, joint swelling, back pain, neck pain SKIN: Absent: rash, itching, pallor HEMATOLOGIC/IMMUNOLOGIC: Absent: easy bleeding, easy bruising, lymphadenopathy NEUROLOGIC: Absent: headache, focal weakness, paresthesias, dizziness, unsteady gait, seizure, mental status changes, bladder or bowel incontinence PSYCHIATRIC: Absent: anxiety, depression, suicidal or homicidal ideation, hallucinations. PHYSICAL EXAM: GENERAL: Awake, alert, and fully oriented, in no acute distress. HEAD: Normal with no signs of trauma. EYES: sclera anicteric, conjunctiva clear. NECK: Normal ROM, supple without lymphadenopathy, JVD, or masses. ABDOMEN: Soft, nontender, not distended, normoactive bowel sounds, no guarding, no rebound, no masses. No organomegaly. Healed port sites; no hernias. MUSCULOSKELETAL: Normal ROM at all joints. No bony deformities or tenderness. No CVA tenderness. UPPER EXTREMITIES: 2+ pulses, warm, well-perfused. No cyanosis. Cap refill <2 seconds. No peripheral edema. LOWER EXTREMITIES: 2+ pulses, warm, well-perfused. No calf tenderness. No peripheral edema. NEUROLOGICAL: Normal speech, gait not observed. PSYCH: Cooperative. Good eye contact. Appropriate mood and affect. SKIN: Warm, dry, normal turgor, no rashes or lesions noted. Vital Signs Temperature 98.9 F 09/27/19 15:49 Pulse Rate 72 09/27/19 15:49 Respiratory Rate 20 09/27/19 15:49 Blood Pressure 149/90 09/27/19 15:49 O2 Sat by Pulse Oximetry (%) 100 09/26/19 21:00 Lab Results WBC 5.8 K/mm3 (4.0-10.0) 09/25/19 07:25 RBC 3.70 M/mm3 (4.00-5.60) L 09/25/19 07:25 Hgb 11.6 GM/dL (11.7-16.9) L 09/25/19 07:25 Hct 34.4 % (35.4-49) L 09/25/19 07:25 MCV 93.1 fl (80-96) 09/25/19 07:25 MCHC 33.6 g/dl (32.0-35.9) 09/25/19 07:25 RDW 15.1 % (11.9-15.9) 09/25/19 07:25 Plt Count 144 K/MM3 (134-434) 09/25/19 07:25 Sodium 139 mmol/L (136-145) 09/27/19 06:00 Potassium 3.8 mmol/L (3.5-5.1) 09/27/19 06:00 Chloride 103 mmol/L (98-107) 09/27/19 06:00 Carbon Dioxide 28 mmol/L (21-32) 09/27/19 06:00 Anion Gap 9 MMOL/L (8-16) 09/27/19 06:00 BUN 52.5 mg/dL (7-18) H 09/27/19 06:00 Creatinine 4.4 mg/dL (0.55-1.3) H 09/27/19 06:00 Random Glucose 158 mg/dL (74-106) H 09/27/19 06:00 Calcium 8.2 mg/dL (8.5-10.1) L 09/27/19 06:00 INR 1.08 (0.83-1.09) 09/08/19 13:33 Imaging w/u to date reviewed IMP: No evidence of post cholecystectomy complications PLAN: per primary team to manage medical comorbid conditions Edgar Avila MD FACS.
[2019-10-10] MEDS ORDERED: ALBUTEROL SO4 2.5/IPRATROPIUM 0.5 INH SOL 3 ML VIAL.NEB. NEB SCH (16:00)
--- NOTE | 2019-10-10 16:21 | PN ---
Progress Note (short form) - Note Progress Note: Hospitalist Medicine C/o pain in R heel. With mild SOB. Listening to his boombox Vitals 10/10/19 14:59 Temperature 98.6 F Pulse Rate 78 Respiratory 18 Rate Blood Pressure 121/68 Physical Exam general: pleasant, in NAD heent: NCAT, PERRLA neck: supple, without jvd cardio: S1, S2 RRR. no r/m/g pulm: +rhonchi b/l. mild abdominal breathing abdomen: nontender, nondistended LE: 1+ pulses dp. no edema. +R heel ulcer- approx 2x3cm, w/ eschar. diffusely TTP surrounding area Laboratory Tests 10/09/19 10/10/19 10/10/19 14:00 00:00 09:15 WBC 3.0 L Hgb 11.4 L Hct 34.8 L Plt Count 106 L Sodium Potassium Chloride Carbon Dioxide BUN Creatinine Random Glucose Hemoglobin A1c % Calcium AST Troponin I 0.11 H 0.09 H 10/10/19 10/10/19 10/10/19 09:15 09:15 09:15 WBC Hgb Hct Plt Count Sodium 138 Potassium 4.1 Chloride 103 Carbon Dioxide 29 BUN 34.5 H Creatinine 3.2 H Random Glucose 189 H Hemoglobin A1c % 8.1 H Calcium 7.7 L AST 50 H Troponin I 0.09 H Microbiology 10/09/19 14:00 Blood - Peripheral Venous Blood Culture - Preliminary NO GROWTH OBTAINED AFTER 24 HOURS, INCUBATION TO CONTINUE FOR 4 DAYS. 10/09/19 14:00 Blood - Peripheral Venous Blood Culture - Preliminary NO GROWTH OBTAINED AFTER 24 HOURS, INCUBATION TO CONTINUE FOR 4 DAYS. 10/10/19: Urine cx - pending Imaging 10/09/19: EKG: atrial sensed vent paced rhythm. qtc 480ms 10/09/19: CXR: large heart, unfolded aorta, R jugular line with tip in RA, double lead PPM. unfolded aorta, blurring of the hilar and congestive changes with base infiltrate with atelectasis and/or fluid. there is some atelectasis or infiltrate at the right base 10/09/19: chest CT, CTAP: lingular infiltrate, moderate bilateral pleural effusions and resultant bibasilar compressive atelectasis. these have increase mildly in size compared to 09/08/2019. bilateral flank subcutaneous edema. cardiomegaly. transvenous PPM. R internal jugular venous cath in place with cath tip at the superior cavoatrial junction. s/p jody. small amount of fluid in abdomen and pelvis mildly increased. colonic diverticulosis. possible bilateral nonobstructing renal calculi vs. atherosclerotic vascular calcifications. 10/10/19: ECHO: LV mildly dilated, severe global hypokinesis of LV. EF 20-25%. LVSF severelreduced. ppm lead in RV. LA desiree dilated, moderate MR, moderate TR. RVSP elevated at 40-50 mmHg. mild aortic sclerosis, mild AR, mildly dilated IVC. Assessment/Plan 69 y/o M with PMH [place], ESRD on dialysis (//Sun), HLD, hypothyroidism, DM, former alcoholic until jun 2019, recent admission for RLE wound, as well as cholecystectomy (09/17/19) presenting to ED from [facility] for fever, diarrhea, cough and SOB. #Fever 2/2 possible HAP -recently hospitalized and from [place] -w/ evidence of infiltrate on CT scan, SOB, hypoxia -c/w zosyn (10/10) -f/u ucx, blood cx, urine for legionella Ag -other etiologies include infected heel (f/u foot XR), ?r/o osteo, intraabdom pathology -less likely 2/2 post jody -on medrol 40mg q8h -tylenol PRN for pain/fever -ID: Dr. Keith -Sx: Dr. Avila #SOB 2/2 PNA, CHF, vs. vol overload (HD) -c/w symbicort OSCAR, ventolin PRN -c/w medrol -for HD tomorrow (10/11) -[place] 02 . titrate to 02>90% #acute on chronic systolic CHF -severely reduced LVEF -has vol overload, however may also be from need to be dialyzed -hold losartan and coreg to avoid hypotension; resume tomorrow if improved BP -daily wt, strict i/o, na control 2g -Cardio: Dr. Snow #ESRD -for HD tomorrow (10/11) -nephro: Dr. Dubose #F/E/N avoid IVF as HD patient continue to follow lytes renal diet #PPX DVT: hep 5k sq tid #Dispo monitoring on med-surg from [facility]
--- NOTE | 2019-10-10 17:44 | PN ---
Teaching Attending Note Name of Resident: Tracey King ATTENDING PHYSICIAN STATEMENT I saw and evaluated the patient. I reviewed the resident's note and discussed the case with the resident. I agree with the resident's findings and plan as documented. 69 y/o M with PMHx CAD, ESRD on dialysis (//Sun), HLD, hypothyroidism, T2DM, former alcoholic until jun 2019, recent admission for RLE wound, as well as cholecystectomy (09/17/19) admitted to hospital from [place] for fever, diarrhea, cough and SOB. Patient endorses some improvement with breathing but still has some SOB with R heel pain. No fevers. Appears comfortable. Physical Exam general: pleasant, in NAD heent: NCAT, PERRLA neck: supple, without jvd cardio: S1, S2 RRR. no r/m/g pulm: +rhonchi b/l. mild abdominal breathing abdomen: non-tender, non-distended LE: 1+ pulses dp. no edema. +R heel ulcer- approximately 2 x 3cm w/ eschar formation, diffusely TTP surrounding area. L heel with skin cracks and small area <1cm of skin darkening but no signs of skin breakage or infection. Vital Signs - 24 hr 10/09/19 10/09/19 10/09/19 17:56 18:12 19:05 Temperature 98.6 F 98.0 F Pulse Rate 92 H 86 Pulse Rate [ 81 Left Radial] Respiratory 18 18 Rate Blood Pressure 142/88 134/85 Blood Pressure 126/81 [Right Arm] O2 Sat by Pulse 97 97 Oximetry (%) 10/09/19 10/09/19 10/09/19 19:10 19:41 20:10 Temperature Pulse Rate 83 79 82 Pulse Rate [ Left Radial] Respiratory 18 18 18 Rate Blood Pressure 134/81 143/81 153/72 Blood Pressure [Right Arm] O2 Sat by Pulse Oximetry (%) 10/09/19 10/09/19 10/09/19 20:40 21:10 21:40 Temperature Pulse Rate 73 76 79 Pulse Rate [ Left Radial] Respiratory 18 18 18 Rate Blood Pressure 140/80 144/79 139/90 Blood Pressure [Right Arm] O2 Sat by Pulse Oximetry (%) 10/09/19 10/09/19 10/10/19 22:10 22:19 00:46 Temperature Pulse Rate 75 85 Pulse Rate [ 79 Left Radial] Respiratory 18 18 18 Rate Blood Pressure 144/82 137/87 Blood Pressure 149/86 [Right Arm] O2 Sat by Pulse 95 Oximetry (%) 10/10/19 10/10/19 10/10/19 06:00 10:00 14:59 Temperature 99.0 F 98.4 F 98.6 F Pulse Rate 90 87 78 Pulse Rate [ Left Radial] Respiratory 17 18 18 Rate Blood Pressure 133/82 100/60 121/68 Blood Pressure [Right Arm] O2 Sat by Pulse Oximetry (%) Microbiology 10/09/19 14:00 Blood Culture - Preliminary Blood - Peripheral Venous NO GROWTH OBTAINED AFTER 24 HOURS, INCUBATION TO CONTINUE FOR 4 DAYS. 10/09/19 14:00 Blood Culture - Preliminary Blood - Peripheral Venous NO GROWTH OBTAINED AFTER 24 HOURS, INCUBATION TO CONTINUE FOR 4 DAYS. Laboratory Results - last 24 hr 10/09/19 10/10/19 10/10/19 23:57 00:00 00:05 WBC RBC Hgb Hct MCV MCH MCHC RDW Plt Count MPV Absolute Neuts (auto) Neutrophils % Lymphocytes % Monocytes % Eosinophils % Basophils % Nucleated RBC % Sodium Potassium Chloride Carbon Dioxide Anion Gap BUN Creatinine Est GFR (CKD-EPI)AfAm Est GFR (CKD-EPI)NonAf POC Glucometer 164 Random Glucose Hemoglobin A1c % Calcium Phosphorus Magnesium Total Bilirubin AST ALT Alkaline Phosphatase Troponin I 0.09 H Total Protein Albumin Urine Color Dk yellow Urine Appearance Cloudy Urine pH 5.0 Ur Specific [facility] 1.029 Urine Protein 4+ H Urine Glucose (UA) 1+ H Urine Ketones Negative Urine Blood Negative Urine Nitrite Negative Urine Bilirubin Negative Urine Urobilinogen 1.0 Ur Leukocyte Esterase Negative Urine WBC (Auto) 7 Urine RBC (Auto) 1 Urine Casts (Auto) 12 U Epithel Cells (Auto) 3.8 Urine Bacteria (Auto) 4.6 10/10/19 10/10/19 10/10/19 06:24 09:15 09:15 WBC 3.0 L RBC 3.72 L Hgb 11.4 L Hct 34.8 L MCV 93.5 MCH 30.6 MCHC 32.8 RDW 15.5 Plt Count 106 L MPV 9.3 Absolute Neuts (auto) 2.5 Neutrophils % 83.1 H D Lymphocytes % 14.5 D Monocytes % 1.9 L Eosinophils % 0.1 Basophils % 0.4 Nucleated RBC % 0 Sodium 138 Potassium 4.1 Chloride 103 Carbon Dioxide 29 Anion Gap 7 L BUN 34.5 H Creatinine 3.2 H Est GFR (CKD-EPI)AfAm 21.56 Est GFR (CKD-EPI)NonAf 18.60 POC Glucometer 164 Random Glucose 189 H Hemoglobin A1c % Calcium 7.7 L Phosphorus 4.3 Magnesium 2.1 Total Bilirubin 0.5 AST 50 H ALT 27 Alkaline Phosphatase 173 H Troponin I Total Protein 6.6 Albumin 2.5 L Urine Color Urine Appearance Urine pH Ur Specific [facility] Urine Protein Urine Glucose (UA) Urine Ketones Urine Blood Urine Nitrite Urine Bilirubin Urine Urobilinogen Ur Leukocyte Esterase Urine WBC (Auto) Urine RBC (Auto) Urine Casts (Auto) U Epithel Cells (Auto) Urine Bacteria (Auto) 10/10/19 10/10/19 10/10/19 09:15 09:15 12:03 WBC RBC Hgb Hct MCV MCH MCHC RDW Plt Count MPV Absolute Neuts (auto) Neutrophils % Lymphocytes % Monocytes % Eosinophils % Basophils % Nucleated RBC % Sodium Potassium Chloride Carbon Dioxide Anion Gap BUN Creatinine Est GFR (CKD-EPI)AfAm Est GFR (CKD-EPI)NonAf POC Glucometer 278 Random Glucose Hemoglobin A1c % 8.1 H Calcium Phosphorus Magnesium Total Bilirubin AST ALT Alkaline Phosphatase Troponin I 0.09 H Total Protein Albumin Urine Color Urine Appearance Urine pH Ur Specific [facility] Urine Protein Urine Glucose (UA) Urine Ketones Urine Blood Urine Nitrite Urine Bilirubin Urine Urobilinogen Ur Leukocyte Esterase Urine WBC (Auto) Urine RBC (Auto) Urine Casts (Auto) U Epithel Cells (Auto) Urine Bacteria (Auto) 10/10/19 16:40 WBC RBC Hgb Hct MCV MCH MCHC RDW Plt Count MPV Absolute Neuts (auto) Neutrophils % Lymphocytes % Monocytes % Eosinophils % Basophils % Nucleated RBC % Sodium Potassium Chloride Carbon Dioxide Anion Gap BUN Creatinine Est GFR (CKD-EPI)AfAm Est GFR (CKD-EPI)NonAf POC Glucometer 335 Random Glucose Hemoglobin A1c % Calcium Phosphorus Magnesium Total Bilirubin AST ALT Alkaline Phosphatase Troponin I Total Protein Albumin Urine Color Urine Appearance Urine pH Ur Specific [facility] Urine Protein Urine Glucose (UA) Urine Ketones Urine Blood Urine Nitrite Urine Bilirubin Urine Urobilinogen Ur Leukocyte Esterase Urine WBC (Auto) Urine RBC (Auto) Urine Casts (Auto) U Epithel Cells (Auto) Urine Bacteria (Auto) Current Medications Generic Name Dose Route Start Last Admin Trade Name Freq PRN Reason Stop Dose Admin Acetaminophen 650 mg 10/10/19 15:03 Tylenol - PO Q6H PRN FEVER Albuterol Sulfate 1 amp 10/10/19 15:03 Ventolin 0.083% Nebulizer Soln - NEB Q4H PRN SHORT OF BREATH/WHEEZING Budesonide/Formoterol Fumarate 2 puff 10/10/19 10:00 10/10/19 13:27 Symbicort 80/4.5mcg - IH 2 puff BID [facility] Administration Famotidine 20 mg 10/10/19 10:00 10/10/19 10:24 Pepcid - PO 20 mg DAILY [facility] Administration Heparin Sodium (Porcine) 5,000 unit 10/10/19 06:00 10/10/19 13:28 Heparin - SQ 5,000 unit TID [facility] Administration Sodium Chloride 250 mls @ 3,000 mls/hr 10/09/19 17:48 Normal Saline - IV 10/10/19 17:48 PRN PRN Hypotension during Dialysis Piperacillin Sod/Tazobactam 50 mls @ 100 mls/hr 10/10/19 12:15 10/10/19 13:26 Sod 2.25 gm/ Dextrose IVPB 100 mls/hr Q8H-IV [facility] Administration Protocol Sodium Chloride 250 mls @ 3,000 mls/hr 10/10/19 15:17 Normal Saline - IV 10/11/19 15:17 PRN PRN Hypotension during Dialysis Insulin Aspart 1 vial 10/09/19 22:00 10/10/19 16:42 Novolog Vial Sliding Scale - SQ 8 units ACHS [facility] Administration Protocol Levothyroxine Sodium 125 mcg 10/10/19 07:00 10/10/19 06:48 Synthroid - PO 125 mcg DAILY@0700 [facility] Administration Melatonin 10 mg 10/10/19 22:00 Melatonin PO HS O[facility]AR Methylprednisolone Sodium Succinate 40 mg 10/10/19 02:00 10/10/19 10:24 Solu-Medrol - IVPUSH 40 mg Q8H-IV [facility] Administration 69 y/o M with PMH NC, ESRD on dialysis (//Sun), HLD, hypothyroidism, DM, former alcoholic until jun 2019, recent admission for RLE wound, as well as cholecystectomy (09/17/19) presenting to ED from [facility] for healthcare acquired pneumonia. Patient SOB improving but now complains of R heel pain. HAP recently hospitalized and from [place] ([facility]) evidence of infiltrate on CT scan, SOB, hypoxia Continue with Zosyn for HAP ID: Dr. Keith Sx: Dr. Avila R heel pain possibly due to calciphylaxis v.s. underlying ?osteomyelitis, patient however endorses chronicity of wound which makes infection less likely Pain control with tylenol, elevate limb, wound care referral Obtain R foot x-ray Vascular consult Shortness of breath multifactorial may be due to CHFE, PNA, fluid overload from ESRD c/w symbicort OSCAR, ventolin PRN c/w medrol for HD tomorrow (10/11) NC 02 . titrate to 02>90%, fluid restriction, salt restriction Acute on chronic systolic CHF severely reduced LVEF has vol overload, however may also be from need to be dialyzed will hold BP meds to avoid hypotension; resume tomorrow after HD if BP allows daily wt, strict i/o, na control 2g Cardio: Dr. Snow ESRD for HD tomorrow (10/11) nephro: Dr. Dubose F/E/N avoid IVF as HD patient continue to follow lytes renal diet DVT ppx: Heparin SC
--- NOTE | 2019-10-10 18:55 | CONS ---
DATE OF CONSULTATION: DATE OF DICTATION: 10/10/2019 REQUESTING PHYSICIAN: Hospitalist service HISTORY: This is a 69-year-old man. He was recently admitted directly after he came from a plane from [place] on September 08. At that time, he had just started dialysis in [place], and his family wanted him here. Came to the hospital. He had a chronic heel ulcer with some surrounding cellulitis. During that admission, he underwent a laparoscopic cholecystectomy on the , and he was [facility] . Apparently, at the [facility], he developed chest pain, abdominal pain, and nonbloody, watery diarrhea. He was started on Unasyn on the and oral Flagyl on the . Symptoms persisted with continued cough, and he had a fever of 101 yesterday and was sent to the hospital. He had a CAT scan of his chest, abdomen, and pelvis that are notable for a lingular infiltrate as well there is no mention of colitis. He has got moderate, bilateral pleural effusions that appear increased from prior CT. He has bilateral flank subcutaneous edema, which is increased as well. He has cardiomegaly with a transvenous pacemaker. He has some free fluid in his abdomen and diverticulosis. No diverticulitis or colitis. He was given vancomycin and Zosyn in the ER. As well, he was started on steroids. I am asked to see him for further evaluation. Apparently, he also underwent dialysis for fluid removal last night. PAST MEDICAL HISTORY: He has severe cardiomyopathy. He has on echocardiogram ejection fraction of 20%-25%. He has got a defibrillator in place. He has a history of end-stage renal disease. He is on dialysis via Perma-Cath, hypertension, type 2 diabetes, hypothyroidism, a biventricular ICD. He has a chronic heel ulcer. Former alcohol user. SURGICAL HISTORY: He is status post recent laparoscopic cholecystectomy on September 17. He has a Perma-Cath in place as well. He has had apparently heart surgery as well. SOCIAL HISTORY: There is no history of smoking. He was in [place] until late August and currently is [facility]. Former alcohol use, per the admitting history and physical. ALLERGIES: No known drug allergies. MEDICATIONS: As stated before, at the [facility] include this Unasyn and Flagyl that were just started on the 12th. He is on insulin. He uses albuterol nebulizers. He is on BuSpar, Coreg, donepezil, famotidine, hydralazine, Lasix, isosorbide dinitrate, levothyroxine, lorazepam, losartan, melatonin, nitroglycerin p.r.n., simethicone tablets. REVIEW OF SYSTEMS: He has currently no complaints, and per the nurse, has not had any diarrhea since admission. PHYSICAL EXAMINATION: General: He is resting comfortably. Vital Signs: Temperature 98.4, maximum temperature 101.3 on admission, pulse of 87, blood pressure 100/60, respiratory rate 18. HEENT: He is normocephalic. His eyes are anicteric. Neck: Supple. Chest Wall: Pacemaker site is without any erythema or discomfort. Heart: Regular rate and rhythm. Skin: Perma-Cath as well is nontender. Lungs: Diminished breath sounds at the bases. He has scattered rhonchi. Abdomen: Soft, nontender. Extremities: Without edema. He has an unstageable right heel ulcer with an eschar in place. There is no surrounding erythema. LABORATORIES: Notable for a white count of 4.9 on admission, today is 3, hemoglobin 11.4, platelets 106, BUN 34, creatinine 3.2 with an AST of 50 and alkaline phosphatase of 173. Urine and blood cultures are pending. Imaging is as stated before. CAT scan shows a lingular infiltrate. In summary, this is an elderly man recent admission now at the [facility] admitted with fever, possible pneumonia. Received vancomycin and Zosyn in the ER. No further fevers but he is on Solu-Medrol. He has no diarrhea. Would follow up his cultures. Treat him with Zosyn for pneumonia adjusted for his end-stage renal disease. C. difficile if diarrhea recurs. Surgery to evaluate heel ulcer. Further recommendations to follow. Spike [id number] MTDD
[2019-10-10] MEDS: MELATONIN 5 MG TABLETS PO SCH (22:55)
[2019-10-11] MEDS ORDERED: PIPERACILLIN/TAZOBACTAM 2.25 GM VIAL IVPB ONE ×3 (01:29→16:41)
[2019-10-11] MEDS ORDERED: DEXTROSE 5%-WATER - 50 ML IVPB ONE ×3 (01:30→16:41)
[2019-10-11] MEDS: PIPERACILLIN/TAZOB 2.25 GM 2.25 GM in DEXTROSE 5%-WATER - 50 ML IVPB SCH ×3 (01:57→17:25)
[2019-10-11] MEDS: methylPREDNISolone NA SUCC 40 MG/1 ML VIAL IVPUSH SCH ×3 (01:57→17:26)
[2019-10-11] MEDS: ALBUTEROL SO4 0.083% IH SOL 2.5 MG/3 ML VIAL.NEB. NEB PRN (02:22)
[2019-10-11] MEDS ORDERED: LORazepam 1 MG TABLET PO ONE (03:22)
[2019-10-11] MEDS ORDERED: LORazepam 2 MG TABLET PO ONE (03:22)
[2019-10-11] MEDS: INSULIN SLIDING SCALE (NOVOLOG) 1 VIAL SQ SCH ×4 (06:17→21:35)
[2019-10-11] MEDS: LEVOTHYROXINE NA 125 MCG TABLET (FP) PO SCH (06:24)
[2019-10-11] MEDS: HEPARIN NA (PORCINE) 5,000 UNITS/ML 1ML VIAL SQ SCH (06:24)
[2019-10-11 07:57] LABS: BASO % 0.1 % (0-2.0); HEMOGLOBIN 10.5 GM/dL (11.7-16.9); LYMPH % 11.8 % (8-40); MCH 30.6 pg (25.7-33.7); MCHC 32.7 g/dl (32.0-35.9); MEAN CELL VOLUME 93.5 fl (80-96); MEAN PLT VOLUME 9.2 fl (7.5-11.1); MONO % 2.5 % (3.8-10.2); NEUT % 85.6 % (42.8-82.8); PLATELET COUNT 98 K/MM3 (134-434); RBC 3.43 M/mm3 (4.00-5.60); RDW 15.2 % (11.9-15.9); WHITE BLOOD COUNT 2.9 K/mm3 (4.0-10.0)
[2019-10-11 08:13] LABS: BLOOD UREA NITROGEN 50.7 mg/dL (7-18); CALCIUM 7.7 mg/dL (8.5-10.1); MAGNESIUM 2.1 mg/dL (1.8-2.4); POTASSIUM 4.4 mmol/L (3.5-5.1)
--- NOTE | 2019-10-11 11:14 | PN ---
Progress Note (short form) - Note Progress Note: RENAL Pt is awake and alert currently on hemodialysis appears tired Last Vital Signs Temp Pulse Resp BP Pulse Ox 98.6 F 65 18 134/78 96 10/11/19 08:15 10/11/19 10:20 10/11/19 10:20 10/11/19 10:20 10/11/19 08:00 lungs clear cvs s1s2 rr abd soft ext no edema chest has a permcath in right IJ area neuro a+o CBC, BMP 10/11/19 06:35 10/11/19 06:35 Current Medications Generic Name Dose Route Start Last Admin Trade Name Freq PRN Reason Stop Dose Admin Acetaminophen 650 mg 10/10/19 15:03 Tylenol - PO Q6H PRN FEVER Albuterol Sulfate 1 amp 10/10/19 15:03 10/11/19 02:22 Ventolin 0.083% Nebulizer Soln - NEB 1 amp Q4H PRN Administration SHORT OF BREATH/WHEEZING Budesonide/Formoterol Fumarate 2 puff 10/10/19 10:00 10/10/19 22:54 Symbicort 80/4.5mcg - IH 2 puff BID OSCAR Administration Famotidine 20 mg 10/10/19 10:00 10/10/19 10:24 Pepcid - PO 20 mg DAILY OSCAR Administration Heparin Sodium (Porcine) 5,000 unit 10/10/19 06:00 10/11/19 06:24 Heparin - SQ 5,000 unit TID OSCAR Administration Sodium Chloride 250 mls @ 3,000 mls/hr 10/09/19 17:48 Normal Saline - IV 10/10/19 17:48 PRN PRN Hypotension during Dialysis Piperacillin Sod/Tazobactam 50 mls @ 100 mls/hr 10/10/19 12:15 10/11/19 01:57 Sod 2.25 gm/ Dextrose IVPB 100 mls/hr Q8H-IV OSCAR Administration Protocol Sodium Chloride 250 mls @ 3,000 mls/hr 10/10/19 15:17 Normal Saline - IV 10/11/19 15:17 PRN PRN Hypotension during Dialysis Insulin Aspart 1 vial 10/09/19 22:00 10/11/19 06:17 Novolog Vial Sliding Scale - SQ 10 units ACHS OSCAR Administration Protocol Levothyroxine Sodium 125 mcg 10/10/19 07:00 10/11/19 06:24 Synthroid - PO 125 mcg DAILY@0700 OSCAR Administration Lorazepam 2 mg 10/11/19 03:22 10/11/19 06:54 Ativan PO 10/11/19 03:23 Not Given ONCE ONE Melatonin 10 mg 10/10/19 22:00 10/10/19 22:55 Melatonin PO 10 mg HS OSCAR Administration Methylprednisolone Sodium Succinate 40 mg 10/10/19 02:00 10/11/19 01:57 Solu-Medrol - IVPUSH 40 mg Q8H-IV OSCAR Administration Impression 1. ESRD 2. HTN 3. cellulitis 4. DM 5. hypothyroidism 6. pleural effusion 7 hypernatremia may improve with hd Plan - HD TIW - abx per ID - renal diet - evaluate heal ulcer - follow cultures -repeat labs in am MV
[2019-10-11] MEDS: FAMOTIDINE 20 MG TABLET PO SCH (12:11)
--- NOTE | 2019-10-11 12:26 | PN ---
Progress Note (short form) - Note Progress Note: s: no chest pain, palps, dizziness. still has dyspnea, chest congestion improving. Current Medications Acetaminophen (Tylenol -) 650 mg PO Q6H PRN PRN Reason: FEVER Albuterol Sulfate (Ventolin 0.083% Nebulizer Soln -) 1 amp NEB Q4H PRN PRN Reason: SHORT OF BREATH/WHEEZING Last Admin: 10/11/19 02:22 Dose: 1 amp Budesonide/Formoterol Fumarate (Symbicort 80/4.5mcg -) [address] [facility] Last Admin: 10/10/19 22:54 Dose: 2 puff Famotidine (Pepcid -) [address] [facility] Last Admin: 10/11/19 12:11 Dose: 20 mg Heparin Sodium (Porcine) (Heparin -) 5,[address] [facility] Last Admin: 10/11/19 06:24 Dose: 5,000 unit Sodium Chloride (Normal Saline -) 250 mls @ 3,000 mls/hr IV PRN PRN PRN Reason: Hypotension during Dialysis Stop: 10/10/19 17:48 Piperacillin Sod/Tazobactam (Sod 2.25 gm/ Dextrose) 50 mls @ 100 mls/hr IVPB Q8H-IV [facility]; Protocol Last Admin: 10/11/19 12:02 Dose: 100 mls/hr Sodium Chloride (Normal Saline -) 250 mls @ 3,000 mls/hr IV PRN PRN PRN Reason: Hypotension during Dialysis Stop: 10/11/19 15:17 Insulin Aspart (Novolog Vial Sliding Scale -) [address] [facility]; Protocol Last Admin: 10/11/19 12:05 Dose: 8 units Levothyroxine Sodium (Synthroid -) 125 mcg PO DAILY@0700 [facility] Last Admin: 10/11/19 06:24 Dose: 125 mcg Lorazepam (Ativan) 2 mg PO ONCE ONE Stop: 10/11/19 03:23 Last Admin: 10/11/19 06:54 Dose: Not Given Melatonin (Melatonin) [address] [facility] Last Admin: 10/10/19 22:55 Dose: 10 mg Methylprednisolone Sodium Succinate (Solu-Medrol -) 40 mg IVPUSH Q8H-IV [facility] Last Admin: 10/11/19 12:11 Dose: 40 mg Vital Signs Period Temp Pulse Resp BP Sys/[place] Pulse Ox Last 24 Hr 97.7 F-98.9 F 61-88 18-20 121-146/66-86 96-96 nad no jvd rrr s1s2 no mrg scattered rhonchi bl, nl eff awake alert no jaundice diaphoresis abd nt nd pos bs no jaundice diaphoresis pos dp pt no carotid bruits echo 09/2019: lve, lvef 20-25%, global hk, lae, nl rv, mod mr, mod tr, mild ar , rvsp 40-50 09/19/2019 [employer] interrogated, 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 08/2019 10 beat run of NSVT self- terminated w/o therapy. echo 08/2019 Moderate dilated with severely decreased LVEF 20-25%, preserved wall motion at base, rest of segments severely HK, mod-severe MR, mild TR, pacemaker RV, mild-mod AR, mild ao dilatation 4.[address] chest: +pna, +mod bl pleural effs ecg: sr, as-vp integrity a/p: 69 m hx dementia, htn, dm, syst chf s/p [place] biv icd, esrd on hd, here with diarrhea, abd pain, nausea, chest congestion. pna: -abx per ID htn: -bp stable not on meds, monitor for now acute systolic chf, biv icd: -lvef severely reduced (?ischemic vs nicm, recently came from [place]) -has biv icd placed 2013, nl fcn when checked here earlier this month -evidence of some vol overload with bl pleural effs, cont HD per renal for vol management -held home losartan and coreg 2/2, can resume if bp remains stable esrd: -cont hd per renal elevated trops: -borderline trop elevation with flat trend and nl ck, similar to prior baseline values, not c/w acs
--- NOTE | 2019-10-11 12:48 | PN ---
Physical Exam: SUBJECTIVE: Patient seen and examined OBJECTIVE: Vital Signs Period Temp Pulse Resp BP Sys/Palacios Pulse Ox Last 24 Hr 97.7 F-98.9 F 61-88 18-20 121-146/66-86 96-96 GENERAL: The patient is awake, alert, and fully oriented, in no acute distress. HEAD: Normal with no signs of trauma. EYES: PERRL, extraocular movements intact, sclera anicteric, conjunctiva clear. No ptosis. ENT: Ears normal, nares patent, oropharynx clear without exudates, moist mucous membranes. NECK: Trachea midline, full range of motion, supple. LUNGS: Breath sounds equal, clear to auscultation bilaterally, no wheezes, no crackles, no accessory muscle use. HEART: Regular rate and rhythm, S1, S2 without murmur, rub or gallop. ABDOMEN: Soft, nontender, nondistended, normoactive bowel sounds, no guarding, no rebound, no hepatosplenomegaly, no masses. EXTREMITIES: 2+ pulses, warm, well-perfused, no edema. NEUROLOGICAL: Cranial nerves II through XII grossly intact. Normal speech, gait not observed. PSYCH: Normal mood, normal affect. SKIN: Warm, dry, normal turgor, no rashes or lesions noted Laboratory Results - last 24 hr 10/09/19 10/10/19 10/10/19 19:15 16:40 21:43 WBC RBC Hgb Hct MCV MCH MCHC RDW Plt Count MPV Absolute Neuts (auto) Neutrophils % Lymphocytes % Monocytes % Eosinophils % Basophils % Nucleated RBC % Sodium Potassium Chloride Carbon Dioxide Anion Gap BUN Creatinine Est GFR (CKD-EPI)AfAm Est GFR (CKD-EPI)NonAf POC Glucometer 335 391 Random Glucose Calcium Phosphorus Magnesium Random Vancomycin Hep Bs Antigen Negative 10/11/19 10/11/19 10/11/19 06:11 06:35 06:35 WBC 2.9 L RBC 3.43 L Hgb 10.5 L Hct 32.0 L MCV 93.5 MCH 30.6 MCHC 32.7 RDW 15.2 Plt Count 98 L MPV 9.2 Absolute Neuts (auto) 2.5 Neutrophils % 85.6 H Lymphocytes % 11.8 Monocytes % 2.5 L Eosinophils % 0.0 D Basophils % 0.1 Nucleated RBC % 0 Sodium Potassium Chloride Carbon Dioxide Anion Gap BUN Creatinine Est GFR (CKD-EPI)AfAm Est GFR (CKD-EPI)NonAf POC Glucometer 358 Random Glucose Calcium Phosphorus Magnesium Random Vancomycin 8.9 L Hep Bs Antigen 10/11/19 10/11/19 06:35 12:01 WBC RBC Hgb Hct MCV MCH MCHC RDW Plt Count MPV Absolute Neuts (auto) Neutrophils % Lymphocytes % Monocytes % Eosinophils % Basophils % Nucleated RBC % Sodium 153 H Potassium 4.4 Chloride 113 H Carbon Dioxide 25 Anion Gap 15 BUN 50.7 H Creatinine 4.0 H Est GFR (CKD-EPI)AfAm 16.46 Est GFR (CKD-EPI)NonAf 14.21 POC Glucometer 303 Random Glucose 360 H Calcium 7.7 L Phosphorus 5.0 H Magnesium 2.1 Random Vancomycin Hep Bs Antigen Active Medications Generic Name Dose Route Start Last Admin Trade Name Freq PRN Reason Stop Dose Admin Acetaminophen 650 mg 10/10/19 15:03 Tylenol - PO Q6H PRN FEVER Albuterol Sulfate 1 amp 10/10/19 15:03 10/11/19 02:22 Ventolin 0.083% Nebulizer Soln - NEB 1 amp Q4H PRN Administration SHORT OF BREATH/WHEEZING Budesonide/Formoterol Fumarate 2 puff 10/10/19 10:00 10/10/19 22:54 Symbicort 80/4.5mcg - IH 2 puff BID OSCAR Administration Famotidine 20 mg 10/10/19 10:00 10/11/19 12:11 Pepcid - PO 20 mg DAILY OSCAR Administration Heparin Sodium (Porcine) 5,000 unit 10/10/19 06:00 10/11/19 06:24 Heparin - SQ 5,000 unit TID OSCAR Administration Sodium Chloride 250 mls @ 3,000 mls/hr 10/09/19 17:48 Normal Saline - IV 10/10/19 17:48 PRN PRN Hypotension during Dialysis Piperacillin Sod/Tazobactam 50 mls @ 100 mls/hr 10/10/19 12:15 10/11/19 12:02 Sod 2.25 gm/ Dextrose IVPB 100 mls/hr Q8H-IV OSCAR Administration Protocol Sodium Chloride 250 mls @ 3,000 mls/hr 10/10/19 15:17 Normal Saline - IV 10/11/19 15:17 PRN PRN Hypotension during Dialysis Insulin Aspart 1 vial 10/09/19 22:00 10/11/19 12:05 Novolog Vial Sliding Scale - SQ 8 units ACHS OSCAR Administration Protocol Levothyroxine Sodium 125 mcg 10/10/19 07:00 10/11/19 06:24 Synthroid - PO 125 mcg DAILY@0700 OSCAR Administration Lorazepam 2 mg 10/11/19 03:22 10/11/19 06:54 Ativan PO 10/11/19 03:23 Not Given ONCE ONE Melatonin 10 mg 10/10/19 22:00 10/10/19 22:55 Melatonin PO 10 mg HS OSCAR Administration Methylprednisolone Sodium Succinate 40 mg 10/10/19 02:00 10/11/19 12:11 Solu-Medrol - IVPUSH 40 mg Q8H-IV OSCAR Administration Microbiology 10/10/19 00:05 Urine Culture - Final Urine - Urine Clean Catch NO GROWTH OBTAINED 10/09/19 14:00 Blood Culture - Preliminary Blood - Peripheral Venous NO GROWTH OBTAINED AFTER 24 HOURS, INCUBATION TO CONTINUE FOR 4 DAYS. 10/09/19 14:00 Blood Culture - Preliminary Blood - Peripheral Venous NO GROWTH OBTAINED AFTER 24 HOURS, INCUBATION TO CONTINUE FOR 4 DAYS. Imaging reviewed EKG acknowledged ASSESSMENT/PLAN: Here for acute on chronic respiratory failure with hypernatremia and heel pain with known severe underlying vascular disease. Problems include: -Acute on Chronic respiratory failure, improved (multifactoral) -HFrEF exacerbation [(NYHA-III) complicated by ESRD (s/p BSX AICD, 2/ NICM vs. IsCM (recently from [place]0, improved] *Evidenced on exam and imaging, subjective SOB improved *Resuming home losartan and BB. Prior echo noted. Fluid removal per nephro with HD. -CAP w/ effusion *Continue abx per ID, FU with pulmonary -COPD hx, +/- exacerbation *No recent PFTs, likely triggered by CAP. Can refer for OP PFTs and FU with pulmonary consultation -ESRD on HD *HD today with K-bath/fluid removal per nephro -Acute Hypernatremia *Followup PM BMP; will discuss with nephro -Pancytopenia (leukopenia, anemia, thrombocytopenia) *checking HIV, HCV Ab. Trend CBC. Guideline based XF perameters. Consult heme if needed. 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 is chronic *FU with vascular; Checking ESR/CRP. *Starting gabapentin for ongoing neuropathic component of pain with acknowledgement of underlying renal disease. Further testing per vascular. -Hx Hypothyroidism -Hx HLD -Hx HTN (resumed home meds as stated above) -Hx DM (Continue current management) -Status post recent cholecystectomy (no current issues per surgery) -Overweight (BMI 26; impairs wound healing) Full Code Visit type - Emergency Visit Emergency Visit: Yes ED Registration Date: 10/09/19 Care time: The patient presented to the Emergency Department on the above date and was hospitalized for further evaluation of their emergent condition. - New Patient This patient is new to me today: Yes Date on this admission: 10/11/19 - Critical Care Critical Care patient: No
[2019-10-11] MEDS: BUDESONIDE/FORMETEROL FUMARATE 80/4.5 mcg INHALER IH SCH ×2 (14:48→21:26)
[2019-10-11] MEDS: busPIRone HCL 5 MG TABLET PO SCH ×2 (14:49→21:26)
[2019-10-11] MEDS: CARVEDILOL 6.25 MG TABLET (FP) PO SCH ×2 (14:49→21:25)
[2019-10-11] MEDS: GABAPENTIN 100 MG CAPSULE (FP) PO SCH (14:49)
[2019-10-11 15:08] LABS: RETICULOCYTES 1.35 % (0.5-1.5)
[2019-10-11] MEDS ORDERED: EPOETIN ALFA 2,000 UNIT/1 ML VIAL IVPUSH ONE (15:17)
[2019-10-11] MEDS: ISOSORBIDE DINITRATE 20 MG TABLET (FP) PO SCH (17:26)
[2019-10-11] MEDS: IPRATROPIUM BR 0.02% 0.5 MG/2.5 ML VIAL.NEB. NEB SCH (19:35)
[2019-10-11] MEDS: MELATONIN 5 MG TABLETS PO SCH (21:25)
[2019-10-11] MEDS: LORazepam 1 MG TABLET PO SCH (21:25)
[2019-10-11] MEDS: INSULIN (LEVEMIR) 100 UNITS/ML UNITS SQ SCH (21:32)
[2019-10-12] MEDS ORDERED: DEXTROSE 5%-WATER - 50 ML IVPB ONE ×3 (01:36→18:06)
[2019-10-12] MEDS ORDERED: PIPERACILLIN/TAZOBACTAM 2.25 GM VIAL IVPB ONE ×3 (01:36→18:06)
[2019-10-12] MEDS: PIPERACILLIN/TAZOB 2.25 GM 2.25 GM in DEXTROSE 5%-WATER - 50 ML IVPB SCH ×3 (02:45→18:10)
[2019-10-12] MEDS: methylPREDNISolone NA SUCC 40 MG/1 ML VIAL IVPUSH SCH ×3 (02:46→18:10)
[2019-10-12] MEDS: INSULIN SLIDING SCALE (NOVOLOG) 1 VIAL SQ SCH ×4 (06:38→22:08)
[2019-10-12] MEDS: LEVOTHYROXINE NA 125 MCG TABLET (FP) PO SCH (06:45)
[2019-10-12] MEDS: IPRATROPIUM BR 0.02% 0.5 MG/2.5 ML VIAL.NEB. NEB SCH ×2 (07:30→19:50)
[2019-10-12] MEDS ORDERED: PT OWN MED DRAWER 7, Y5N ONE (10:33)
[2019-10-12] MEDS: GABAPENTIN 100 MG CAPSULE (FP) PO SCH (10:54)
[2019-10-12] MEDS: busPIRone HCL 5 MG TABLET PO SCH ×2 (10:55→22:10)
[2019-10-12] MEDS: ISOSORBIDE DINITRATE 20 MG TABLET (FP) PO SCH ×2 (10:55→18:10)
[2019-10-12] MEDS: CARVEDILOL 6.25 MG TABLET (FP) PO SCH ×2 (10:55→22:10)
[2019-10-12] MEDS: BUDESONIDE/FORMETEROL FUMARATE 80/4.5 mcg INHALER IH SCH ×2 (10:56→22:13)
[2019-10-12] MEDS: FAMOTIDINE 20 MG TABLET PO SCH (10:56)
--- NOTE | 2019-10-12 11:15 | CON.PULM ---
Consult Consult Specialty:: PULM/CCM Referred by:: FAYE Reason for Consultation:: COPD - History of Present Illness History of Present Illness: 69 m, AMI, ESRD on dialysis (//Sun), HLD, hypothyroidism, DM, former alcohol abuse (jun 2019), LLE wound, cholecystectomy, and former smoker (reports " years ago"). No reported PFTs, no specific admissions for AE COPD. Admitted via the ER from the SNF due to fever, diarrhea, cough and SOB. Apparently has been having generalized malaise, poor oral intake, diffuse abdominal pain, non bloody watery diarrhea, and a "barking" cough with productive white/yellow sputum. No travel history or sick contacts. No night sweats or hemoptysis. No history that would be consistent with OSAS. CT: Moderate bilateral pleural effusions with associated compressive atelectasis , increased from previous. 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 No: Asthma, Cancer, O2 Dependent, Previously Intubated, Pulmonary Embolus, Pulmonary Fibrosis, Sleep Apnea Renal/: Yes: Renal Failure, Hemodialysis Musculoskeletal: Yes: Other (Right plantarmedial heel with deep tissue injury , underlying hematoma which as now opened and draining, no erythema, pain on palpatin noted, no streaking, no edema, no bone exposed) Endocrine: Yes: Diabetes Insipidus - Alcohol/Substance Use Hx Alcohol Use: No - Smoking History Smoking history: Smoker current status UNK Have you smoked in the past 12 months: No - Social History Usual Living Arrangement: Longterm History of Recent Travel: Yes (just arrived yesterday) Home Medications - Allergies Allergies/Adverse Reactions: Allergies Allergy/AdvReac Type Severity Reaction Status Date / Time No Known Allergies Allergy Verified 10/09/19 13:17 - Home Medications Home Medications: Ambulatory Orders Acetaminophen [Tylenol .Regular Strength -] 650 mg PO Q6H PRN tablet 09/27/19 Carvedilol [Coreg -] 6.25 mg PO BID tablet 09/27/19 Donepezil HCl [Aricept -] 10 mg PO DAILY tablet 09/27/19 Isosorbide Dinitrate [Isordil] 20 mg PO BIDISORDIL tablet 09/27/19 Levothyroxine [Synthroid -] 125 mcg PO DAILY@0700 tablet 09/27/19 Losartan Potassium [Cozaar -] 50 mg PO DAILY tablet 09/27/19 Melatonin 10 mg PO HS tab 09/27/19 hydrALAZINE HCL [Apresoline -] 25 mg PO BID tablet 09/27/19 Albuterol 0.083% Nebulizer Brigid [Ventolin 0.083% Nebulizer Soln -] 1 neb NEB Q6H PRN 10/09/19 Ampicillin Sodium/Sulbactam Na [Unasyn 1.5 gm Vial] 1.5 gm IV Q6H 10/09/19 Buspirone HCl [Buspar -] 5 mg PO BID 10/09/19 Famotidine 20 mg PO BID 10/09/19 Furosemide [Lasix] 40 mg PO DAILY 10/09/19 Insulin Glargine,Hum.rec.anlog [Basaglar Kwikpen U-100] 6 unit SQ HS 10/09/19 Insulin Sliding Scale [Novolog Vial Sliding Scale -] 0 vial SQ ACHS 10/09/19 Ipratropium 0.02% Nebulizer [Atrovent] 1 neb NEB BID 10/09/19 LORazepam [Ativan] 2 mg PO HS 10/09/19 Loperamide HCl [Loperamide] 2 mg PO Q4H PRN 10/09/19 Nitroglycerin Sublingual [Nitrostat -] 0.4 mg SL ONCE PRN 10/09/19 metroNIDAZOLE [Flagyl -] 500 mg PO TID 10/09/19 Review of Systems - Review of Systems Constitutional: reports: Lethargy, Loss of Appetite, Malaise, Weakness. denies : Chills, Fever, Night Sweats, Unintentional Wgt. Loss Eyes: reports: No Symptoms HENT: reports: No Symptoms Neck: reports: No Symptoms Cardiovascular: reports: Edema, Shortness of Breath. denies: Chest Pain, Palpitations Respiratory: reports: Cough, Orthopnea, SOB, SOB on Exertion. denies: Hemoptysis, Snoring, Wheezing Gastrointestinal: reports: No Symptoms Genitourinary: reports: No Symptoms Breasts: reports: No Symptoms Reported Musculoskeletal: reports: No Symptoms Integumentary: reports: No Symptoms Neurological: reports: No Symptoms Endocrine: reports: No Symptoms Hematology/Lymphatic: reports: No Symptoms Psychiatric: reports: No Symptoms Physical Exam Vital Sings: Vital Signs Temperature 97.8 F 10/12/19 10:44 Pulse Rate 63 10/12/19 10:44 Respiratory Rate 20 10/12/19 10:44 Blood Pressure 126/68 10/12/19 10:44 O2 Sat by Pulse Oximetry (%) 99 10/11/19 21:00 Constitutional: Yes: No Distress Eyes: Yes: Conjunctiva Clear, EOM Intact HENT: Yes: Atraumatic, Normocephalic Neck: Yes: Supple, Trachea Midline Cardiovascular: Yes: Regular Rate and Rhythm Respiratory: Yes: Cough, Diminished, On Nasal O2, Rales, Rhonchi, SOB on Exertion, Tachypnea. No: Accessory Muscle Use, SOB, Stridor, Wheezes ...Inspection: Yes: WNL ...Clubbing: No Gastrointestinal: Yes: Normal Bowel Sounds, Soft Musculoskeletal: Yes: WNL Extremities: Yes: WNL Edema: No Peripheral Pulses WNL: Yes Integumentary: Yes: WNL Neurological: Yes: WNL, Alert, Oriented ...Motor Strength: WNL Psychiatric: Yes: WNL, Alert, Oriented Labs: CBC, BMP 10/11/19 06:35 10/11/19 06:35 Imaging - Results Chest X-ray: Report Reviewed, Image Reviewed Cat Scan: Report Reviewed, Image Reviewed Problem List - Problems (1) Pleural effusion Code(s): J90 - PLEURAL EFFUSION, NOT ELSEWHERE CLASSIFIED (2) COPD (chronic obstructive pulmonary disease) Code(s): J44.9 - CHRONIC OBSTRUCTIVE PULMONARY DISEASE, UNSPECIFIED (3) Atelectasis of both lungs Code(s): J98.11 - ATELECTASIS (4) Biventricular ICD (implantable cardioverter-defibrillator) in place Code(s): Z95.810 - PRESENCE OF AUTOMATIC (IMPLANTABLE) CARDIAC DEFIBRILLATOR (5) Cardiomyopathy Code(s): I42.9 - CARDIOMYOPATHY, UNSPECIFIED Qualifiers: (6) Diabetes Code(s): E11.9 - TYPE 2 DIABETES MELLITUS WITHOUT COMPLICATIONS Qualifiers: Diabetes mellitus type: type 2 Chronic kidney disease stage: on chronic dialysis (7) ESRD (end stage renal disease) Code(s): N18.6 - END STAGE RENAL DISEASE (8) HTN (hypertension) Code(s): I10 - ESSENTIAL (PRIMARY) HYPERTENSION Qualifiers: (9) Hypothyroid Code(s): E03.9 - HYPOTHYROIDISM, UNSPECIFIED Qualifiers: Hypothyroidism type: unspecified Qualified Code(s): E03.9 - Hypothyroidism , unspecified (10) Fever Code(s): R50.9 - FEVER, UNSPECIFIED (11) Pneumonia Code(s): J18.9 - PNEUMONIA, UNSPECIFIED ORGANISM (12) Abdominal pain Code(s): R10.9 - UNSPECIFIED ABDOMINAL PAIN (13) Right foot pain Code(s): M79.671 - PAIN IN RIGHT FOOT (14) S/P laparoscopic cholecystectomy Code(s): Z90.49 - ACQUIRED ABSENCE OF OTHER SPECIFIED PARTS OF DIGESTIVE TRACT Assessment/Plan ABX per ID Medrol BD TX O2 to maintain saturation VTE prophylaxis Daily weight HD for volume removal: increase in bilateral pleural effusions and atelectasis No smoking counseled PFTs once stable as an outpatient Will follow Thank you. Dr Richey
[2019-10-12] MEDS: ALBUTEROL SO4 0.083% IH SOL 2.5 MG/3 ML VIAL.NEB. NEB PRN (11:40)
[2019-10-12] MEDS ORDERED: INSULIN (NOVOLOG) ASPART 100 UNITS/ML 10ML VIAL ONE (11:41)
--- NOTE | 2019-10-12 12:27 | PN ---
Progress Note (short form) - Note Progress Note: s: no chest pain, palps, dizziness. dyspnea improving. Current Medications Acetaminophen (Tylenol -) 650 mg PO Q6H PRN PRN Reason: FEVER Albuterol Sulfate (Ventolin 0.083% Nebulizer Soln -) 1 amp NEB Q4H PRN PRN Reason: SHORT OF BREATH/WHEEZING Last Admin: 10/12/19 11:40 Dose: 1 amp Budesonide/Formoterol Fumarate (Symbicort 80/4.5mcg -) 2 puff IH BID [facility] [place] Last Admin: 10/12/19 10:56 Dose: 2 puff Buspirone HCl (Buspar -) 5 mg PO BID [facility] [place] Last Admin: 10/12/19 10:55 Dose: 5 mg Carvedilol (Coreg -) 6.25 mg PO BID [facility] [place] Last Admin: 10/12/19 10:55 Dose: 6.25 mg Famotidine (Pepcid -) 20 mg PO DAILY [facility] [place] Last Admin: 10/12/19 10:56 Dose: 20 mg Gabapentin (Neurontin -) 100 mg PO DAILY [facility] [place] Last Admin: 10/12/19 10:54 Dose: 100 mg Sodium Chloride (Normal Saline -) 250 mls @ 3,000 mls/hr IV PRN PRN PRN Reason: Hypotension during Dialysis Stop: 10/10/19 17:48 Piperacillin Sod/Tazobactam (Sod 2.25 gm/ Dextrose) 50 mls @ 100 mls/hr IVPB Q8H-IV OSCAR; Protocol Last Admin: 10/12/19 10:55 Dose: 100 mls/hr Sodium Chloride (Normal Saline -) 250 mls @ 3,000 mls/hr IV PRN PRN PRN Reason: Hypotension during Dialysis Stop: 10/11/19 15:17 Insulin Aspart (Novolog Vial Sliding Scale -) 1 vial SQ ACHS [facility]; Protocol Last Admin: 10/12/19 11:43 Dose: 8 units Insulin Detemir (Levemir Vial) 6 units SQ HS [facility] [place] Last Admin: 10/11/19 21:32 Dose: 6 units Ipratropium Velva (Atrovent 0.02% Nebulizer -) 1 amp NEB RBID [facility] [place] Last Admin: 10/12/19 07:30 Dose: 1 amp Isosorbide Dinitrate (Isordil -) 20 mg PO BIDISORDIL [facility] [place] Last Admin: 10/12/19 10:55 Dose: 20 mg Levothyroxine Sodium (Synthroid -) 125 mcg PO DAILY@0700 [facility] [place] Last Admin: 10/12/19 06:45 Dose: 125 mcg Lorazepam (Ativan -) 2 mg PO HS [facility] [place] Last Admin: 10/11/19 21:25 Dose: 2 mg Melatonin (Melatonin) 10 mg PO HS [facility] [place] Last Admin: 10/11/19 21:25 Dose: 10 mg Methylprednisolone Sodium Succinate (Solu-Medrol -) 40 mg IVPUSH Q8H-IV [facility] [place] Last Admin: 10/12/19 10:54 Dose: 40 mg Vital Signs Period Temp Pulse Resp BP Sys/Palacios Pulse Ox Last 24 Hr 97.8 F-98.5 F 63-83 18-20 124-147/68-79 95-99 nad no jvd rrr s1s2 no mrg scattered rhonchi bl, nl eff awake alert no jaundice diaphoresis abd nt nd pos bs no jaundice diaphoresis pos dp pt no carotid bruits echo 09/2019: lve, lvef 20-25%, global hk, lae, nl rv, mod mr, mod tr, mild ar , rvsp 40-50 09/19/2019 [employer] interrogated, 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 08/2019 10 beat run of NSVT self- terminated w/o therapy. echo 08/2019 Moderate dilated with severely decreased LVEF 20-25%, preserved wall motion at base, rest of segments severely HK, mod-severe MR, mild TR, pacemaker RV, mild-mod AR, mild ao dilatation 4.[address] chest: +pna, +mod bl pleural effs ecg: sr, as-vp [employer] a/p: 69 m hx dementia, htn, dm, syst chf s/p [place] biv icd, esrd on hd, here with diarrhea, abd pain, nausea, chest congestion. pna: -abx per ID htn: -bp stable, resumed home coreg and imdur acute systolic chf, biv icd: -lvef severely reduced (?ischemic vs nicm, recently came from [place]) -has biv icd placed 2013, nl fcn when checked here earlier this month -evidence of some vol overload with bl pleural effs, cont HD per renal for vol management -held home losartan and coreg 2/2 low BP, coreg and imdur restarted today. restart other bp meds if BP remains stable esrd: -cont hd per renal elevated trops: -borderline trop elevation with flat trend and nl ck, similar to prior baseline values, not c/w acs
--- NOTE | 2019-10-12 12:39 | PN ---
Physical Exam: SUBJECTIVE: Patient seen and examined; continues to improve symptomatically but has ongooing pain. Gabapentin did not help so switched to lyrica and will start cilostazol. Pending vascular eval. Stable on floor. 10 sys ROS done and negative aside from HPI OBJECTIVE: Vital Signs Period Temp Pulse Resp BP Sys/Palacios Pulse Ox Last 24 Hr 97.8 F-98.5 F 63-83 18-20 124-147/68-79 95-99 GENERAL: The patient is awake, alert, and fully oriented, in no acute distress. HEAD: Normal with no signs of trauma. EYES: PERRL, extraocular movements intact, sclera anicteric, conjunctiva clear. No ptosis. ENT: Ears normal, nares patent, oropharynx clear without exudates, moist mucous membranes. NECK: Trachea midline, full range of motion, supple. LUNGS: Breath sounds equal, clear to auscultation bilaterally, no wheezes, no crackles, no accessory muscle use. HEART: Regular rate and rhythm, S1, S2 without murmur, rub or gallop. ABDOMEN: Soft, nontender, nondistended, normoactive bowel sounds, no guarding, no rebound, no hepatosplenomegaly, no masses. EXTREMITIES: 2+ pulses, warm, well-perfused, no edema. NEUROLOGICAL: Cranial nerves II through XII grossly intact. Normal speech, gait not observed. PSYCH: Normal mood, normal affect. SKIN: Warm, dry, normal turgor, no rashes or lesions noted Laboratory Results - last 24 hr 10/11/19 10/11/19 10/11/19 06:35 06:35 16:52 WBC 2.9 L RBC 3.43 L Hgb 10.5 L Hct 32.0 L MCV 93.5 MCH 30.6 MCHC 32.7 RDW 15.2 Plt Count 98 L MPV 9.2 Absolute Neuts (auto) 2.5 Neutrophils % 85.6 H Lymphocytes % 11.8 Monocytes % 2.5 L Eosinophils % 0.0 D Basophils % 0.1 Nucleated RBC % 0 Retic Count 1.35 Sodium 153 H Potassium 4.4 Chloride 113 H Carbon Dioxide 25 Anion Gap 15 BUN 50.7 H Creatinine 4.0 H Est GFR (CKD-EPI)AfAm 16.46 Est GFR (CKD-EPI)NonAf 14.21 POC Glucometer 369 Random Glucose 360 H Calcium 7.7 L Phosphorus 5.0 H Magnesium 2.1 Iron 60 TIBC 200 L Iron Saturation 30 Unsaturated IBC 140 L Vitamin B12 461 Serum Folate 9 10/11/19 10/12/19 10/12/19 21:30 03:31 06:03 WBC RBC Hgb Hct MCV MCH MCHC RDW Plt Count MPV Absolute Neuts (auto) Neutrophils % Lymphocytes % Monocytes % Eosinophils % Basophils % Nucleated RBC % Retic Count Sodium Potassium Chloride Carbon Dioxide Anion Gap BUN Creatinine Est GFR (CKD-EPI)AfAm Est GFR (CKD-EPI)NonAf POC Glucometer 351 334 353 Random Glucose Calcium Phosphorus Magnesium Iron TIBC Iron Saturation Unsaturated IBC Vitamin B12 Serum Folate 10/12/19 11:37 WBC RBC Hgb Hct MCV MCH MCHC RDW Plt Count MPV Absolute Neuts (auto) Neutrophils % Lymphocytes % Monocytes % Eosinophils % Basophils % Nucleated RBC % Retic Count Sodium Potassium Chloride Carbon Dioxide Anion Gap BUN Creatinine Est GFR (CKD-EPI)AfAm Est GFR (CKD-EPI)NonAf POC Glucometer 326 Random Glucose Calcium Phosphorus Magnesium Iron TIBC Iron Saturation Unsaturated IBC Vitamin B12 Serum Folate Active Medications Generic Name Dose Route Start Last Admin Trade Name Freq PRN Reason Stop Dose Admin Acetaminophen 650 mg 10/10/19 15:03 Tylenol - PO Q6H PRN FEVER Albuterol Sulfate 1 amp 10/10/19 15:03 10/12/19 11:40 Ventolin 0.083% Nebulizer Soln - NEB 1 amp Q4H PRN Administration SHORT OF BREATH/WHEEZING Budesonide/Formoterol Fumarate 2 puff 10/10/19 10:00 10/12/19 10:56 Symbicort 80/4.5mcg - IH 2 puff BID [facility] Administration Buspirone HCl 5 mg 10/11/19 13:45 10/12/19 10:55 Buspar - PO 5 mg BID [facility] Administration Carvedilol 6.25 mg 10/11/19 13:45 10/12/19 10:55 Coreg - PO 6.25 mg BID [facility] Administration Famotidine 20 mg 10/10/19 10:00 10/12/19 10:56 Pepcid - PO 20 mg DAILY [facility] Administration Sodium Chloride 250 mls @ 3,000 mls/hr 10/09/19 17:48 Normal Saline - IV 10/10/19 17:48 PRN PRN Hypotension during Dialysis Piperacillin Sod/Tazobactam 50 mls @ 100 mls/hr 10/10/19 12:15 10/12/19 10:55 Sod 2.25 gm/ Dextrose IVPB 100 mls/hr Q8H-IV [facility] Administration Protocol Sodium Chloride 250 mls @ 3,000 mls/hr 10/10/19 15:17 Normal Saline - IV 10/11/19 15:17 PRN PRN Hypotension during Dialysis Insulin Aspart 1 vial 10/11/19 19:50 10/12/19 11:43 Novolog Vial Sliding Scale - SQ 8 units ACHS [facility] Administration Protocol Insulin Detemir 6 units 10/11/19 22:00 10/11/19 21:32 Levemir Vial SQ 6 units HS [facility] Administration Ipratropium [place] 1 amp 10/11/19 20:00 10/12/19 07:30 Atrovent 0.02% Nebulizer - NEB 1 amp RBID [facility] Administration Isosorbide Dinitrate 20 mg 10/11/19 18:00 10/12/19 10:55 Isordil - PO 20 mg BIDISORDIL [facility] Administration Levothyroxine Sodium 125 mcg 10/10/19 07:00 10/12/19 06:45 Synthroid - PO 125 mcg DAILY@0700 [facility] Administration Lorazepam 2 mg 10/11/19 22:00 10/11/19 21:25 Ativan - PO 2 mg HS [facility] Administration Melatonin 10 mg 10/10/19 22:00 10/11/19 21:25 Melatonin PO 10 mg HS [facility] Administration Methylprednisolone Sodium Succinate 40 mg 10/10/19 02:00 10/12/19 10:54 Solu-Medrol - IVPUSH 40 mg Q8H-IV [facility] Administration Pregabalin 75 mg 10/12/19 12:45 Lyrica - PO BID [facility] ASSESSMENT/PLAN: Here for acute on chronic respiratory failure with hypernatremia and heel pain with known severe underlying vascular disease. Problems include: -Acute on Chronic respiratory failure, improved (multifactoral) -HFrEF exacerbation [(NYHA-III) complicated by ESRD (s/p BSX AICD, 2/2 [facility] *Evidenced on exam and imaging, subjective SOB improved *Resuming home losartan and BB. Prior echo noted. Fluid removal per nephro with HD. -CAP w/ effusion *Continue abx per ID, FU with pulmonary -COPD hx, +/- exacerbation *No recent PFTs, likely triggered by CAP. Can refer for OP PFTs and FU with pulmonary consultation -ESRD on HD *HD today with K-bath/fluid removal per nephro -Acute Hypernatremia *Followup PM BMP; will discuss with nephro -Pancytopenia (leukopenia, anemia, thrombocytopenia) *checking HIV, HCV Ab. Trend CBC. Guideline based XF perameters. Consult heme if needed. 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 is chronic *FU with vascular; Checking ESR/CRP. *Starting gabapentin for ongoing neuropathic component of pain with acknowledgement of underlying renal disease. Further testing per vascular. -Hx Hypothyroidism -Hx HLD -Hx HTN (resumed home meds as stated above) -Hx DM (Continue current management) -Status post recent cholecystectomy (no current issues per surgery) -Overweight (BMI 26; impairs wound healing) Full Code Visit type - Emergency Visit Emergency Visit: Yes ED Registration Date: 10/09/19 Care time: The patient presented to the Emergency Department on the above date and was hospitalized for further evaluation of their emergent condition. - New Patient This patient is new to me today: No - Critical Care Critical Care patient: No
[2019-10-12] MEDS: PREGABALIN 75 MG CAPSULE PO SCH ×2 (14:16→22:10)
[2019-10-12] MEDS: MELATONIN 5 MG TABLETS PO SCH (22:09)
[2019-10-12] MEDS: LORazepam 1 MG TABLET PO SCH (22:09)
[2019-10-12] MEDS: INSULIN (LEVEMIR) 100 UNITS/ML UNITS SQ SCH (22:10)
[2019-10-13] MEDS ORDERED: DEXTROSE 5%-WATER - 50 ML IVPB ONE ×3 (00:47→16:53)
[2019-10-13] MEDS ORDERED: PIPERACILLIN/TAZOBACTAM 2.25 GM VIAL IVPB ONE ×3 (00:47→16:53)
[2019-10-13] MEDS: methylPREDNISolone NA SUCC 40 MG/1 ML VIAL IVPUSH SCH ×2 (03:07→09:58)
[2019-10-13] MEDS: PIPERACILLIN/TAZOB 2.25 GM 2.25 GM in DEXTROSE 5%-WATER - 50 ML IVPB SCH ×3 (03:07→18:14)
[2019-10-13] MEDS: LEVOTHYROXINE NA 125 MCG TABLET (FP) PO SCH (06:33)
[2019-10-13] MEDS: INSULIN SLIDING SCALE (NOVOLOG) 1 VIAL SQ SCH ×4 (06:36→21:51)
[2019-10-13 07:07] LABS: BASO % 0.1 % (0-2.0); HEMATOCRIT 31.7 % (35.4-49); HEMOGLOBIN 10.4 GM/dL (11.7-16.9); LYMPH % 4.5 % (8-40); MCH 30.3 pg (25.7-33.7); MCHC 32.8 g/dl (32.0-35.9); MEAN CELL VOLUME 92.5 fl (80-96); MEAN PLT VOLUME 8.2 fl (7.5-11.1); MONO % 2.1 % (3.8-10.2); NEUT % 93.3 % (42.8-82.8); PLATELET COUNT 100 K/MM3 (134-434); RBC 3.43 M/mm3 (4.00-5.60)
[2019-10-13] MEDS: IPRATROPIUM BR 0.02% 0.5 MG/2.5 ML VIAL.NEB. NEB SCH ×2 (07:35→22:15)
[2019-10-13 07:44] LABS: ALBUMIN 2.3 g/dl (3.4-5.0); BILIRUBIN,TOTAL 0.3 mg/dL (0.2-1); BLOOD UREA NITROGEN 64.4 mg/dL (7-18); CALCIUM 7.6 mg/dL (8.5-10.1); CREATININE 4.7 mg/dL (0.55-1.3); MAGNESIUM 2.5 mg/dL (1.8-2.4); PHOSPHOROUS 5.1 mg/dL (2.5-4.9); TOT PROT 5.9 g/dl (6.4-8.2)
[2019-10-13] MEDS ORDERED: EPOETIN ALFA 2,000 UNIT/1 ML VIAL IVPUSH ONE (09:01)
[2019-10-13] MEDS ORDERED: SODIUM CHLORIDE 250 ML IV PRN ×2 (09:01→09:19)
[2019-10-13] MEDS: FAMOTIDINE 20 MG TABLET PO SCH (09:58)
[2019-10-13] MEDS: busPIRone HCL 5 MG TABLET PO SCH ×2 (09:58→21:52)
[2019-10-13] MEDS: PREGABALIN 75 MG CAPSULE PO SCH ×2 (09:58→21:52)
[2019-10-13] MEDS: BUDESONIDE/FORMETEROL FUMARATE 80/4.5 mcg INHALER IH SCH ×2 (10:00→21:51)
[2019-10-13] MEDS: ISOSORBIDE DINITRATE 20 MG TABLET (FP) PO SCH ×2 (10:00→19:14)
--- NOTE | 2019-10-13 11:52 | PN ---
Progress Note (short form) - Note Progress Note: Hospitalist Medicine In good spirits, sitting with his blanket. Improved breathing. For dialysis today Vitals 10/13/19 10/13/19 10:10 10:15 Temperature 97.5 F L Pulse Rate 62 Respiratory 18 Rate Blood Pressure 119/71 Physical Exam general: pleasant, in NAD heent: NCAT, PERRLA neck: supple, without jvd cardio: S1, S2 RRR. no r/m/g pulm: +few rhonchi. otherwise no accessory m usage abdomen: nontender, nondistended LE: 1+ pulses dp. no edema. +wrapped R foot Laboratory Tests 10/13/19 10/13/19 06:56 06:56 WBC 5.0 Hgb 10.4 L Hct 31.7 L Plt Count 100 L Sodium 138 Potassium 4.0 Chloride 102 Carbon Dioxide 28 BUN 64.4 H Creatinine 4.7 H Est GFR (CKD-EPI)AfAm 13.55 Est GFR (CKD-EPI)NonAf 11.69 Random Glucose 336 H Calcium 7.6 L Phosphorus 5.1 H Magnesium 2.5 H Total Protein 5.9 L Albumin 2.3 L Microbiology 10/11/19 20:00 Sputum - Expectorated Gram Stain - Final 10/11/19 14:00 Stool Gram Stain - Final 10/11/19 14:00 Stool Escherichia coli 0157 Culture - Final NO GROWTH OF VIBRIO SPECIES OBTAINED NO GROWTH OF E COLI 0157 OBTAINED 10/11/19 14:00 Stool Clostridioides difficile Antigen - Final 10/11/19 14:00 Stool Clostridioides difficile Toxin Assay - Final 10/10/19 00:05 Urine - Urine Clean Catch Urine Culture - Final NO GROWTH OBTAINED 10/09/19 14:50 Urine For Antigen Detection Legionella Antigen - Final 10/09/19 14:50 Urine For Antigen Detection Streptococcus pneumoniae Antigen (M - Final 10/11/19 20:00 Sputum - Expectorated Sputum Culture - Preliminary NORMAL RESPIRATORY DONI 10/11/19 14:00 Stool Yersinia Culture - Preliminary NO ENTERIC PATHOGENS, 24 HOURS, ON PRIMARY PLATES NO ENTERIC PATHOGENS, 24 HOURS, ON PRIMARY PLATES 10/09/19 14:00 Blood - Peripheral Venous Blood Culture - Preliminary NO GROWTH OBTAINED AFTER 72 HOURS, INCUBATION TO CONTINUE FOR 2 DAYS. 10/09/19 14:00 Blood - Peripheral Venous Blood Culture - Preliminary NO GROWTH OBTAINED AFTER 72 HOURS, INCUBATION TO CONTINUE FOR 2 DAYS. Imaging 10/09/19: EKG: atrial sensed vent paced rhythm. qtc 480ms 10/09/19: CXR: large heart, unfolded aorta, R jugular line with tip in RA, double lead PPM. unfolded aorta, blurring of the hilar and congestive changes with base infiltrate with atelectasis and/or fluid. there is some atelectasis or infiltrate at the right base 10/09/19: chest CT, CTAP: lingular infiltrate, moderate bilateral pleural effusions and resultant bibasilar compressive atelectasis. these have increase mildly in size compared to 09/08/2019. bilateral flank subcutaneous edema. cardiomegaly. transvenous PPM. R internal jugular venous cath in place with cath tip at the superior cavoatrial junction. s/p jody. small amount of fluid in abdomen and pelvis mildly increased. colonic diverticulosis. possible bilateral nonobstructing renal calculi vs. atherosclerotic vascular calcifications. 10/10/19: ECHO: LV mildly dilated, severe global hypokinesis of LV. EF 20-25%. LVSF severelreduced. ppm lead in RV. LA desiree dilated, moderate MR, moderate TR. RVSP elevated at 40-50 mmHg. mild aortic sclerosis, mild AR, mildly dilated IVC. 10/10/19: R foot XR: no sign of fracture or subluxation, no sign of blastic or lytic changes. no calcaneal spurring, no swelling no foreign body. 10/11/19: CXR: persistence of lingula PNA with persistent infiltrate, some improvement in aeration. persistence of L pleural effusion suspected. Assessment/Plan 69 y/o M with PMH PA, ESRD on dialysis (//Sun), HLD, hypothyroidism, DM, former alcoholic until jun 2019, recent admission for RLE wound, as well as cholecystectomy (09/17/19) presenting to ED from [place] for fever, diarrhea, cough and SOB. #Fever 2/2 possible HAP -w/ evidence of infiltrate on CT scan, SOB, hypoxia -c/w zosyn (10/10) -blood, ucx, (-) thus far -will taper medrol to 40mg BID, from q8h -tylenol PRN for pain/fever -ID: Dr. Sagar -Sx: Dr. Avila #SOB 2/2 PNA, CHF, vs. vol overload (HD) -c/w symbicort [facility], ventolin PRN -c/w medrol -for HD today #CAD, hx PA -c/w imdur #acute on chronic systolic CHF -severely reduced LVEF -has vol overload, however may also be from need to be dialyzed -hold losartan -coreg has been restarted -daily wt, strict i/o, na control 2g -Cardio: Dr. Snow #ESRD -for HD today -nephro: Dr. Dubose #DM2 -c/w ISS, BGM ACHS -on levemir 6 u sq HS> will uptitrate to 8u as BG uncontrolled in hospital #F/E/N avoid IVF as HD patient continue to follow lytes renal diet #PPX DVT: hep 5k sq tid #Dispo monitoring on med-surg from [place] will need fistula as outpt <Tracey King - Last Filed: 10/13/19 15:05> - Note Progress Note: Here for acute on chronic respiratory failure with hypernatremia and heel pain with known severe underlying vascular disease. Problems include: -Acute on Chronic respiratory failure, improved (multifactoral) -HFrEF exacerbation [(NYHA-III) complicated by ESRD (s/p BSX AICD, 2/ N[facility]M [facility]] *Evidenced on exam and imaging, subjective SOB improved *Resuming home losartan and BB. Prior echo noted. Fluid removal per nephro with HD. -CAP w/ effusion *Continue abx per ID, FU with pulmonary -COPD hx, +/- exacerbation *No recent PFTs, likely triggered by CAP. Can refer for OP PFTs and FU with pulmonary consultation -ESRD on HD *HD today with K-bath/fluid removal per nephro -Acute Hypernatremia *Followup PM BMP; will discuss with nephro -Pancytopenia (leukopenia, anemia, thrombocytopenia) *checking HIV, HCV Ab. Trend CBC. Guideline based XF perameters. Consult heme if needed. 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 is chronic *FU with vascular; Checking ESR/CRP. *Starting gabapentin for ongoing neuropathic component of pain with acknowledgement of underlying renal disease. Further testing per vascular. -Hx Hypothyroidism -Hx HLD -Hx HTN (resumed home meds as stated above) -Hx DM (Continue current management) -Status post recent cholecystectomy (no current issues per surgery) -Overweight (BMI 26; impairs wound healing) Full Code <Zeferino Moore - Last Filed: 10/15/19 07:15>
--- NOTE | 2019-10-13 12:40 | PN ---
Progress Note (short form) - Note Progress Note: PULMONARY Currently on HD. States breathing is better. No fevers recorded. Vital Signs Period Temp Pulse Resp BP Sys/Palacios Pulse Ox Last 24 Hr 97.4 F-98.2 F 62-69 18-24 119-150/61-77 96 Gen: NAD at rest Heart: RRR Lung: decreased breath sounds at the bases Abd: soft, nontender Ext: no edema CBC, BMP 10/13/19 06:56 10/13/19 06:56 Active Medications Acetaminophen (Tylenol -) 650 mg PO Q6H PRN PRN Reason: FEVER Albuterol Sulfate (Ventolin 0.083% Nebulizer Soln -) 1 amp NEB Q4H PRN PRN Reason: SHORT OF BREATH/WHEEZING Last Admin: 10/12/19 11:40 Dose: 1 amp Budesonide/Formoterol Fumarate (Symbicort 80/4.5mcg -) 2 puff IH BID [facility] Last Admin: 10/13/19 10:00 Dose: 2 puff Buspirone HCl (Buspar -) 5 mg PO BID [facility] Last Admin: 10/13/19 09:58 Dose: 5 mg Carvedilol (Coreg -) 6.25 mg PO BID [facility] Last Admin: 10/12/19 22:10 Dose: 6.25 mg Famotidine (Pepcid -) 20 mg PO DAILY [facility] Last Admin: 10/13/19 09:58 Dose: 20 mg Piperacillin Sod/Tazobactam (Sod 2.25 gm/ Dextrose) 50 mls @ 100 mls/hr IVPB Q8H-IV [facility]; Protocol Last Admin: 10/13/19 03:07 Dose: 100 mls/hr Sodium Chloride (Normal Saline -) 250 mls @ 3,000 mls/hr IV PRN PRN PRN Reason: Hypotension during Dialysis Stop: 10/14/19 09:18 Sodium Chloride (Normal Saline -) 250 mls @ 3,000 mls/hr IV PRN PRN PRN Reason: Hypotension during Dialysis Stop: 10/14/19 09:01 Insulin Aspart (Novolog Vial Sliding Scale -) 1 vial SQ ACHS [facility]; Protocol Last Admin: 10/13/19 06:36 Dose: 8 units Insulin Detemir (Levemir Vial) 6 units SQ HS [facility] Last Admin: 10/12/19 22:10 Dose: 6 units Ipratropium [place] (Atrovent 0.02% Nebulizer -) 1 amp NEB RBID [facility] Last Admin: 10/13/19 07:35 Dose: 1 amp Isosorbide Dinitrate (Isordil -) 20 mg PO BIDISORDIL [facility] Last Admin: 10/12/19 18:10 Dose: 20 mg Levothyroxine Sodium (Synthroid -) 125 mcg PO DAILY@0700 [facility] Last Admin: 10/13/19 06:33 Dose: 125 mcg Lorazepam (Ativan -) 2 mg PO HS [facility] Last Admin: 10/12/19 22:09 Dose: 2 mg Melatonin (Melatonin) 10 mg PO HS [facility] Last Admin: 10/12/19 22:09 Dose: 10 mg Methylprednisolone Sodium Succinate (Solu-Medrol -) 40 mg IVPUSH BID [facility] Pregabalin (Lyrica -) 75 mg PO BID [facility] Last Admin: 10/13/19 09:58 Dose: 75 mg A/P Acute on Chronic Systolic Heart Failure Volume Overload Pleural Effusions Pneumonia ESRD on HD Pancytopenia CAD HTN DM Hyperlipidemia Hypothyroidism - continue antibiotics - HD per renal - O2 to keep SpO2 >90% - on empiric medrol - inhaled bronchodilators as needed - DVT prophylaxis
--- NOTE | 2019-10-13 14:08 | PN ---
Progress Note, Physician History of Present Illness: Pt seen and examined at bedside. He is tolerating HD. He denies shortness of breath. - Current Medication List Current Medications: Active Medications Acetaminophen (Tylenol -) 650 mg PO Q6H PRN PRN Reason: FEVER Albuterol Sulfate (Ventolin 0.083% Nebulizer Soln -) 1 amp NEB Q4H PRN PRN Reason: SHORT OF BREATH/WHEEZING Last Admin: 10/12/19 11:40 Dose: 1 amp Budesonide/Formoterol Fumarate (Symbicort 80/4.5mcg -) 2 puff IH BID [facility] Last Admin: 10/13/19 10:00 Dose: 2 puff Buspirone HCl (Buspar -) 5 mg PO BID [facility] Last Admin: 10/13/19 09:58 Dose: 5 mg Carvedilol (Coreg -) 6.25 mg PO BID [facility] Last Admin: 10/12/19 22:10 Dose: 6.25 mg Famotidine (Pepcid -) 20 mg PO DAILY [facility] Last Admin: 10/13/19 09:58 Dose: 20 mg Piperacillin Sod/Tazobactam (Sod 2.25 gm/ Dextrose) 50 mls @ 100 mls/hr IVPB Q8H-IV [facility]; Protocol Last Admin: 10/13/19 03:07 Dose: 100 mls/hr Sodium Chloride (Normal Saline -) 250 mls @ 3,000 mls/hr IV PRN PRN PRN Reason: Hypotension during Dialysis Stop: 10/14/19 09:18 Sodium Chloride (Normal Saline -) 250 mls @ 3,000 mls/hr IV PRN PRN PRN Reason: Hypotension during Dialysis Stop: 10/14/19 09:01 Insulin Aspart (Novolog Vial Sliding Scale -) 1 vial SQ ACHS [facility]; Protocol Last Admin: 10/13/19 06:36 Dose: 8 units Insulin Detemir (Levemir Vial) 6 units SQ HS [facility] Last Admin: 10/12/19 22:10 Dose: 6 units Ipratropium [place] (Atrovent 0.02% Nebulizer -) 1 amp NEB RBID [facility] Last Admin: 10/13/19 07:35 Dose: 1 amp Isosorbide Dinitrate (Isordil -) 20 mg PO BIDISORDIL [facility] Last Admin: 10/12/19 18:10 Dose: 20 mg Levothyroxine Sodium (Synthroid -) 125 mcg PO DAILY@0700 [facility] Last Admin: 10/13/19 06:33 Dose: 125 mcg Lorazepam (Ativan -) 2 mg PO HS [facility] Last Admin: 10/12/19 22:09 Dose: 2 mg Melatonin (Melatonin) 10 mg PO HS [facility] Last Admin: 10/12/19 22:09 Dose: 10 mg Methylprednisolone Sodium Succinate (Solu-Medrol -) 40 mg IVPUSH BID [facility] Pregabalin (Lyrica -) 75 mg PO BID [facility] Last Admin: 10/13/19 09:58 Dose: 75 mg - Objective Vital Signs: Vital Signs Temperature 97.5 F L 10/13/19 10:10 Pulse Rate 68 10/13/19 13:59 Respiratory Rate 18 10/13/19 13:59 Blood Pressure 124/71 10/13/19 13:59 O2 Sat by Pulse Oximetry (%) 96 10/12/19 21:00 Constitutional: Yes: Calm Eyes: Yes: Conjunctiva Clear HENT: Yes: Atraumatic Neck: Yes: Supple Cardiovascular: Yes: S1, S2 Respiratory: Yes: CTA Bilaterally Gastrointestinal: Yes: Soft Genitourinary: Yes: WNL Musculoskeletal: Yes: WNL Edema: No Neurological: Yes: Oriented Psychiatric: Yes: Oriented Labs: CBC, BMP 10/13/19 06:56 10/13/19 06:56 INR, PTT INR 1.00 (0.83-1.09) 10/09/19 14:00 Problem List - Problems (1) Abdominal pain Code(s): R10.9 - UNSPECIFIED ABDOMINAL PAIN (2) Cardiomyopathy Code(s): I42.9 - CARDIOMYOPATHY, UNSPECIFIED Qualifiers: (3) ESRD (end stage renal disease) Code(s): N18.6 - END STAGE RENAL DISEASE (4) HTN (hypertension) Code(s): I10 - ESSENTIAL (PRIMARY) HYPERTENSION Qualifiers: Assessment/Plan Current Medications Generic Name Dose Route Start Last Admin Trade Name Freq PRN Reason Stop Dose Admin Acetaminophen 650 mg 10/10/19 15:03 Tylenol - PO Q6H PRN FEVER Albuterol Sulfate 1 amp 10/10/19 15:03 10/12/19 11:40 Ventolin 0.083% Nebulizer Soln - NEB 1 amp Q4H PRN Administration SHORT OF BREATH/WHEEZING Budesonide/Formoterol Fumarate 2 puff 10/10/19 10:00 10/13/19 10:00 Symbicort 80/4.5mcg - IH 2 puff BID [facility] Administration Buspirone HCl 5 mg 10/11/19 13:45 10/13/19 09:58 Buspar - PO 5 mg BID [facility] Administration Carvedilol 6.25 mg 10/11/19 13:45 10/12/19 22:10 Coreg - PO 6.25 mg BID [facility] Administration Famotidine 20 mg 10/10/19 10:00 10/13/19 09:58 Pepcid - PO 20 mg DAILY [facility] Administration Piperacillin Sod/Tazobactam 50 mls @ 100 mls/hr 10/10/19 12:15 10/13/19 03:07 Sod 2.25 gm/ Dextrose IVPB 100 mls/hr Q8H-IV [facility] Administration Protocol Sodium Chloride 250 mls @ 3,000 mls/hr 10/13/19 09:19 Normal Saline - IV 10/14/19 09:18 PRN PRN Hypotension during Dialysis Sodium Chloride 250 mls @ 3,000 mls/hr 10/13/19 09:01 Normal Saline - IV 10/14/19 09:01 PRN PRN Hypotension during Dialysis Insulin Aspart 1 vial 10/11/19 19:50 10/13/19 06:36 Novolog Vial Sliding Scale - SQ 8 units ACHS [facility] Administration Protocol Insulin Detemir 6 units 10/11/19 22:00 10/12/19 22:10 Levemir Vial SQ 6 units HS [facility] Administration Ipratropium [place] 1 amp 10/11/19 20:00 10/13/19 07:35 Atrovent 0.02% Nebulizer - NEB 1 amp RBID [facility] Administration Isosorbide Dinitrate 20 mg 10/11/19 18:00 10/12/19 18:10 Isordil - PO 20 mg BIDISORDIL [facility] Administration Levothyroxine Sodium 125 mcg 10/10/19 07:00 10/13/19 06:33 Synthroid - PO 125 mcg DAILY@0700 [facility] Administration Lorazepam 2 mg 10/11/19 22:00 10/12/19 22:09 Ativan - PO 2 mg HS [facility] Administration Melatonin 10 mg 10/10/19 22:00 10/12/19 22:09 Melatonin PO 10 mg HS [facility] Administration Methylprednisolone Sodium Succinate 40 mg 10/13/19 22:00 Solu-Medrol - IVPUSH BID [facility] Pregabalin 75 mg 10/12/19 13:45 10/13/19 09:58 Lyrica - PO 75 mg BID [facility] Administration Impression 1. ESRD 2. HTN 3. cellulitis 4. DM 5. hypothyroidism 6. pleural effusion Plan - HD today - abx per medical team - will need fistula once stable - renal diet - evaluate heal ulcer - follow cultures
[2019-10-13 14:19] LABS: ANISOCYTOSIS 0; MACROCYTOSIS 0; PLATELET ESTIMATE NORMAL; TEAR DROP CELLS 1+
--- NOTE | 2019-10-13 14:45 | PN ---
Progress Note (short form) - Note Progress Note: s: no chest pain, palps, dizziness, dyspnea. feels congested. Current Medications Acetaminophen (Tylenol -) 650 mg PO Q6H PRN PRN Reason: FEVER Albuterol Sulfate (Ventolin 0.083% Nebulizer Soln -) 1 amp NEB Q4H PRN PRN Reason: SHORT OF BREATH/WHEEZING Last Admin: 10/12/19 11:40 Dose: 1 amp Budesonide/Formoterol Fumarate (Symbicort 80/4.5mcg -) 2 puff IH BID [facility] Last Admin: 10/13/19 10:00 Dose: 2 puff Buspirone HCl (Buspar -) 5 mg PO BID [facility] Last Admin: 10/13/19 09:58 Dose: 5 mg Carvedilol (Coreg -) 6.25 mg PO BID [facility] Last Admin: 10/12/19 22:10 Dose: 6.25 mg Famotidine (Pepcid -) 20 mg PO DAILY [facility] Last Admin: 10/13/19 09:58 Dose: 20 mg Piperacillin Sod/Tazobactam (Sod 2.25 gm/ Dextrose) 50 mls @ 100 mls/hr IVPB Q8H-IV [facility]; Protocol Last Admin: 10/13/19 03:07 Dose: 100 mls/hr Sodium Chloride (Normal Saline -) 250 mls @ 3,000 mls/hr IV PRN PRN PRN Reason: Hypotension during Dialysis Stop: 10/14/19 09:18 Sodium Chloride (Normal Saline -) 250 mls @ 3,000 mls/hr IV PRN PRN PRN Reason: Hypotension during Dialysis Stop: 10/14/19 09:01 Insulin Aspart (Novolog Vial Sliding Scale -) 1 vial SQ ACHS [facility]; Protocol Last Admin: 10/13/19 14:33 Dose: 8 units Insulin Detemir (Levemir Vial) 6 units SQ HS [facility] Last Admin: 10/12/19 22:10 Dose: 6 units Ipratropium Martin (Atrovent 0.02% Nebulizer -) 1 amp NEB RBID [facility] Last Admin: 10/13/19 07:35 Dose: 1 amp Isosorbide Dinitrate (Isordil -) 20 mg PO BIDISORDIL [facility] Last Admin: 10/12/19 18:10 Dose: 20 mg Levothyroxine Sodium (Synthroid -) 125 mcg PO DAILY@0700 [facility] Last Admin: 10/13/19 06:33 Dose: 125 mcg Lorazepam (Ativan -) 2 mg PO HS [facility] Last Admin: 10/12/19 22:09 Dose: 2 mg Melatonin (Melatonin) 10 mg PO HS [facility] Last Admin: 10/12/19 22:09 Dose: 10 mg Methylprednisolone Sodium Succinate (Solu-Medrol -) 40 mg IVPUSH BID [facility] Pregabalin (Lyrica -) 75 mg PO BID [facility] Last Admin: 10/13/19 09:58 Dose: 75 mg Vital Signs Period Temp Pulse Resp BP Sys/Palacios Pulse Ox Last 24 Hr 97.4 F-98.2 F 60-69 18-20 109-150/61-77 96 nad no jvd rrr s1s2 no mrg scattered rhonchi bl, nl eff awake alert no jaundice diaphoresis abd nt nd pos bs no jaundice diaphoresis pos dp pt no carotid bruits echo 09/2019: lve, lvef 20-25%, global hk, lae, nl rv, mod mr, mod tr, mild ar , rvsp 40-50 09/19/2019 [facility] 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 08/2019 10 beat run of NSVT self- terminated w/o therapy. echo 08/2019 Moderate dilated with severely decreased LVEF 20-25%, preserved wall motion at base, rest of segments severely HK, mod-severe MR, mild TR, pacemaker RV, mild-mod AR, mild ao dilatation 4.[address] chest: +pna, +mod bl pleural effs ecg: sr, as-vp clinical research a/p: 69 m hx dementia, htn, dm, syst chf s/p [place] biv icd, esrd on hd, here with diarrhea, abd pain, nausea, chest congestion. pna: -abx per ID htn: -bp stable, resumed home coreg and imdur acute systolic chf, biv icd: -lvef severely reduced (?ischemic vs nicm, recently came from [place]) -has biv icd placed 2013, nl fcn when checked here earlier this month -evidence of some vol overload with bl pleural effs, cont HD per renal for vol management - losartan, furosemide, hydralazine held in setting of low bp - coreg and imdur resumed, monitor bp esrd: -cont hd per renal elevated trops: -borderline trop elevation with flat trend and nl ck, similar to prior baseline values, not c/w acs
[2019-10-13] MEDS ORDERED: INSULIN (LEVEMIR) 100 UNITS/ML UNITS SQ SCH (15:05)
[2019-10-13] MEDS: CARVEDILOL 6.25 MG TABLET (FP) PO SCH ×2 (15:05→21:52)
[2019-10-13] MEDS: LORazepam 1 MG TABLET PO SCH (21:52)
[2019-10-13] MEDS: MELATONIN 5 MG TABLETS PO SCH (21:52)
[2019-10-14] MEDS: methylPREDNISolone NA SUCC 40 MG/1 ML VIAL IVPUSH SCH ×3 (01:11→21:49)
[2019-10-14] MEDS: PIPERACILLIN/TAZOB 2.25 GM 2.25 GM in DEXTROSE 5%-WATER - 50 ML IVPB SCH ×3 (02:15→17:53)
[2019-10-14] MEDS: LEVOTHYROXINE NA 125 MCG TABLET (FP) PO SCH (06:41)
[2019-10-14] MEDS: INSULIN SLIDING SCALE (NOVOLOG) 1 VIAL SQ SCH ×4 (06:41→22:08)
[2019-10-14] MEDS ORDERED: INSULIN (NOVOLOG) ASPART 100 UNITS/ML 10ML VIAL ONE ×5 (06:48→21:36)
[2019-10-14] MEDS: IPRATROPIUM BR 0.02% 0.5 MG/2.5 ML VIAL.NEB. NEB SCH ×2 (07:35→21:12)
--- NOTE | 2019-10-14 07:36 | CONSULT ---
Consult - text type - Consultation Consultation Note: Patient seen and examined 69 m, ESRD on dialysis (//Sun), HLD, hypothyroidism, DM, former alcohol abuse (jun 2019), LLE wound, cholecystectomy, and former smoker Apparently has been having generalized malaise, poor oral intake, diffuse abdominal pain, non bloody watery diarrhea, and a cough with productive white/ yellow sputum. CT: Moderate bilateral pleural effusions with associated compressive atelectasis , increased from previous. 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 No: Asthma, Cancer, O2 Dependent, Previously Intubated, Pulmonary Embolus, Pulmonary Fibrosis, Sleep Apnea Renal/: Yes: Renal Failure, Hemodialysis Musculoskeletal: Yes: Other (Right plantarmedial heel with deep tissue injury , underlying hematoma which as now opened and draining, no erythema, pain on palpatin noted, no streaking, no edema, no bone exposed) Endocrine: Yes: Diabetes Insipidus - Social History Usual Living Arrangement: Snf - Allergies Allergies/Adverse Reactions: Allergies Allergy/AdvReac Type Severity Reaction Status Date / Time No Known Allergies Allergy Verified 10/09/19 13:17 - Home Medications Home Medications: Ambulatory Orders Acetaminophen [Tylenol .Regular Strength -] 650 mg PO Q6H PRN tablet 09/27/19 Carvedilol [Coreg -] 6.25 mg PO BID tablet 09/27/19 Donepezil HCl [Aricept -] 10 mg PO DAILY tablet 09/27/19 Isosorbide Dinitrate [Isordil] 20 mg PO BIDISORDIL tablet 09/27/19 Levothyroxine [Synthroid -] 125 mcg PO DAILY@0700 tablet 09/27/19 Losartan Potassium [Cozaar -] 50 mg PO DAILY tablet 09/27/19 Melatonin 10 mg PO HS tab 09/27/19 hydrALAZINE HCL [Apresoline -] 25 mg PO BID tablet 09/27/19 Albuterol 0.083% Nebulizer Brigid [Ventolin 0.083% Nebulizer Soln -] 1 neb NEB Q6H PRN 10/09/19 Ampicillin Sodium/Sulbactam Na [Unasyn 1.5 gm Vial] 1.5 gm IV Q6H 10/09/19 Buspirone HCl [Buspar -] 5 mg PO BID 10/09/19 Famotidine 20 mg PO BID 10/09/19 Furosemide [Lasix] 40 mg PO DAILY 10/09/19 Insulin Glargine,Hum.rec.anlog [Basaglar Kwikpen U-100] 6 unit SQ HS 10/09/19 Insulin Sliding Scale [Novolog Vial Sliding Scale -] 0 vial SQ ACHS 10/09/19 Ipratropium 0.02% Nebulizer [Atrovent] 1 neb NEB BID 10/09/19 LORazepam [Ativan] 2 mg PO HS 10/09/19 Loperamide HCl [Loperamide] 2 mg PO Q4H PRN 10/09/19 Nitroglycerin Sublingual [Nitrostat -] 0.4 mg SL ONCE PRN 10/09/19 metroNIDAZOLE [Flagyl -] 500 mg PO TID 10/09/19 Physical Exam AFVSS Cor: RSR, No murmurs, No gallops Lungs: decreased at bases Abd: Soft, Normal bowel sounds, No organomegaly Ext:No significant edema Labs/meds reviewed A/p 69 y/o patient with ESRD, Hep. C Acute on Chronic Systolic Heart Failure Volume Overload Pleural Effusions Pneumonia ESRD on HD Pancytopenia CAD HTN DM Hyperlipidemia Hypothyroidism suspect thrombocytopenia due to ongoing infection/passive congestion will monitor
[2019-10-14 08:16] LABS: ALBUMIN 2.2 g/dl (3.4-5.0); BILIRUBIN,TOTAL 0.3 mg/dL (0.2-1); BLOOD UREA NITROGEN 49.9 mg/dL (7-18); CALCIUM 7.9 mg/dL (8.5-10.1); CREATININE 3.6 mg/dL (0.55-1.3); MAGNESIUM 2.1 mg/dL (1.8-2.4); PHOSPHOROUS 3.1 mg/dL (2.5-4.9); POTASSIUM 4.1 mmol/L (3.5-5.1); TOT PROT 5.8 g/dl (6.4-8.2)
[2019-10-14] MEDS ORDERED: PIPERACILLIN/TAZOBACTAM 2.25 GM VIAL IVPB ONE ×2 (10:42→17:50)
[2019-10-14] MEDS ORDERED: PT OWN MED DRAWER 7, Y5N ONE ×4 (10:42→18:29)
[2019-10-14] MEDS ORDERED: DEXTROSE 5%-WATER - 50 ML IVPB ONE ×2 (10:42→17:50)
[2019-10-14] MEDS: PREGABALIN 75 MG CAPSULE PO SCH (10:45)
[2019-10-14] MEDS: CARVEDILOL 6.25 MG TABLET (FP) PO SCH ×2 (10:45→21:48)
[2019-10-14] MEDS: busPIRone HCL 5 MG TABLET PO SCH ×2 (10:45→21:48)
[2019-10-14] MEDS: FAMOTIDINE 20 MG TABLET PO SCH (10:46)
[2019-10-14] MEDS: ISOSORBIDE DINITRATE 20 MG TABLET (FP) PO SCH ×2 (10:59→17:53)
[2019-10-14] MEDS: BUDESONIDE/FORMETEROL FUMARATE 80/4.5 mcg INHALER IH SCH ×2 (11:03→22:08)
--- NOTE | 2019-10-14 11:09 | PN ---
Progress Note (short form) - Note Progress Note: s: no chest pain, palps, dizziness, dyspnea. feels congested. Current Medications Generic Name Dose Route Start Last Admin Trade Name Freq PRN Reason Stop Dose Admin Acetaminophen 650 mg 10/10/19 15:03 Tylenol - PO Q6H PRN FEVER Albuterol Sulfate 1 amp 10/10/19 15:03 10/12/19 11:40 Ventolin 0.083% Nebulizer Soln - NEB 1 amp Q4H PRN Administration SHORT OF BREATH/WHEEZING Budesonide/Formoterol Fumarate 2 puff 10/10/19 10:00 10/14/19 11:03 Symbicort 80/4.5mcg - IH 2 puff BID [facility] Administration Buspirone HCl 5 mg 10/11/19 13:45 10/14/19 10:45 Buspar - PO 5 mg BID [facility] Administration Carvedilol 6.25 mg 10/11/19 13:45 10/14/19 10:45 Coreg - PO 6.25 mg BID [facility] Administration Famotidine 20 mg 10/10/19 10:00 10/14/19 10:46 Pepcid - PO 20 mg DAILY [facility] Administration Piperacillin Sod/Tazobactam 50 mls @ 100 mls/hr 10/10/19 12:15 10/14/19 10:54 Sod 2.25 gm/ Dextrose IVPB 100 mls/hr Q8H-IV [facility] Administration Protocol Insulin Aspart 1 vial 10/11/19 19:50 10/14/19 06:41 Novolog Vial Sliding Scale - SQ 8 units ACHS [facility] Administration Protocol Insulin Detemir 10 units 10/14/19 07:50 Levemir Vial SQ HS [facility] Ipratropium Franklin 1 amp 10/11/19 20:00 10/14/19 07:35 Atrovent 0.02% Nebulizer - NEB 1 amp RBID [facility] Administration Isosorbide Dinitrate 20 mg 10/11/19 18:00 10/14/19 10:59 Isordil - PO 20 mg BIDISORDIL [facility] Administration Levothyroxine Sodium 125 mcg 10/10/19 07:00 10/14/19 06:41 Synthroid - PO 125 mcg DAILY@0700 [facility] Administration Lorazepam 2 mg 10/11/19 22:00 10/13/19 21:52 Ativan - PO 2 mg HS [facility] Administration Melatonin 10 mg 10/10/19 22:00 10/13/19 21:52 Melatonin PO 10 mg HS [facility] Administration Methylprednisolone Sodium Succinate 40 mg 10/13/19 22:00 10/14/19 10:47 Solu-Medrol - IVPUSH 40 mg BID [facility] Administration Pregabalin 75 mg 10/12/19 13:45 10/14/19 10:45 Lyrica - PO 75 mg BID [facility] Administration Vital Signs Period Temp Pulse Resp BP Sys/Palacios Pulse Ox Last 24 Hr 98 F-99.4 F 60-77 18-20 109-147/59-79 96 nad no jvd rrr s1s2 no mrg scattered rhonchi bl, nl eff awake alert no jaundice diaphoresis abd nt nd pos bs no jaundice diaphoresis pos dp pt no carotid bruits CBC, BMP 10/13/19 06:56 10/14/19 06:13 echo 09/2019: lve, lvef 20-25%, global hk, lae, nl rv, mod mr, mod tr, mild ar , rvsp 40-50 09/19/2019 [facility] RECEIVER/LABORER-D interrogated, 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 08/2019 10 beat run of NSVT self- terminated w/o therapy. 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 pna: -abx per ID htn: -resumed home coreg and imdur acute systolic chf, biv icd: -lvef severely reduced (?ischemic vs nicm, recently came from [place]) -has biv icd placed 2013, nl fcn when checked here earlier this month -evidence of some vol overload with bl pleural effs, cont HD per renal for vol management - losartan, furosemide, hydralazine held in setting of low bp - coreg and imdur resumed, monitor bp esrd: -cont hd per renal elevated trops: -borderline trop elevation with flat trend and nl ck, similar to prior baseline values, not c/w acs
--- NOTE | 2019-10-14 12:02 | PN ---
Progress Note (short form) - Note Progress Note: PULMONARY Lethargic/Afebrile Gen: NAD at rest Heart: RRR Lung: decreased breath sounds at the bases Abd: soft, nontender Ext: no edema labs/meds/notes/images reviewed A/P Acute on Chronic Systolic Heart Failure Volume Overload Pleural Effusions Pneumonia ESRD on HD Pancytopenia CAD HTN DM Hyperlipidemia Hypothyroidism - continue antibiotics - HD per renal - O2 to keep SpO2 >90% - on empiric medrol - inhaled bronchodilators as needed - DVT prophylaxis MANNIE MONTANO
--- NOTE | 2019-10-14 14:43 | PN ---
Progress Note (short form) - Note Progress Note: day #4 antibiotics no further fevers Vital Signs Period Temp Pulse Resp BP Sys/Palacios Pulse Ox Last 24 Hr 98 F-99.4 F 68-77 18-20 113-147/59-79 96 cor-rrr llungs decreased bs at bases abd soft,nt ext- heel ulcer left- callous no erythema, no drainage CBC, BMP 10/13/19 06:56 10/14/19 06:13 Microbiology 10/09/19 14:00 Blood - Peripheral Venous Blood Culture - Final NO GROWTH AFTER 5 DAYS INCUBATION 10/09/19 14:00 Blood - Peripheral Venous Blood Culture - Final NO GROWTH AFTER 5 DAYS INCUBATION 10/11/19 14:00 Stool Gram Stain - Final 10/11/19 14:00 Stool Salmonella/Shigella Culture - Final NO GROWTH OF SALMONELLA OR SHIGELLA SPECIES OBTAINED 10/11/19 14:00 Stool Campylobacter Culture - Final NO GROWTH OF CAMPYLOBACTER SPECIES OBTAINED 10/11/19 14:00 Stool Yersinia Culture - Final NO GROWTH OF YERSINIA SPECIES OBTAINED 10/11/19 14:00 Stool Vibrio Culture - Final NO GROWTH OF VIBRIO SPECIES OBTAINED 10/11/19 14:00 Stool Escherichia coli 0157 Culture - Final NO GROWTH OF E COLI 0157 OBTAINED 10/11/19 20:00 Sputum - Expectorated Gram Stain - Final 10/11/19 20:00 Sputum - Expectorated Sputum Culture - Final NORMAL RESPIRATORY DONI 10/11/19 14:00 Stool Clostridioides difficile Antigen - Final 10/11/19 14:00 Stool Clostridioides difficile Toxin Assay - Final 10/09/19 14:50 Urine For Antigen Detection Legionella Antigen - Final 10/09/19 14:50 Urine For Antigen Detection Streptococcus pneumoniae Antigen (M - Final 10/10/19 00:05 Urine - Urine Clean Catch Urine Culture - Final NO GROWTH OBTAINED a/p pneumonia- day #4 zosyn, can switch to po ceftin in am 500 mg po daily for another 5 days surgery to evaluate heel ulcer for wound care history of cardiomyopathy and defib esrd/hd Problem List - Problems (1) Fever Code(s): R50.9 - FEVER, UNSPECIFIED (2) Pneumonia Code(s): J18.9 - PNEUMONIA, UNSPECIFIED ORGANISM (3) ESRD (end stage renal disease) Code(s): N18.6 - END STAGE RENAL DISEASE (4) Heel ulcer Code(s): L97.409 - NON-PRS CHRONIC ULCER OF UNSP HEEL AND MIDFOOT W UNSP SEVERT (5) Cardiomyopathy Code(s): I42.9 - CARDIOMYOPATHY, UNSPECIFIED Qualifiers:
--- NOTE | 2019-10-14 16:16 | PN ---
Progress Note (short form) - Note Progress Note: Hospitalist Medicine With increased SOB today. "I want my lungs to open up." Pt also requesting fistula as in-patient, d/t difficulty showering w/permacath Vitals 10/14/19 09:00 Temperature 98.0 F Pulse Rate 71 Respiratory 20 Rate Blood Pressure 132/77 Physical Exam general: pleasant, in NAD heent: NCAT, PERRLA neck: supple, without jvd cardio: S1, S2 RRR. no r/m/g pulm: +scattered rhonchi, cough. otherwise no accessory m usage abdomen: nontender, nondistended LE: 1+ pulses dp. no edema. +wrapped R foot Laboratory Tests 10/14/19 06:13 Sodium 139 Potassium 4.1 Chloride 103 Carbon Dioxide 28 BUN 49.9 H Creatinine 3.6 H Random Glucose 281 H Total Protein 5.8 L Albumin 2.2 L Microbiology 10/11/19 20:00 Sputum - Expectorated Gram Stain - Final 10/11/19 14:00 Stool Gram Stain - Final 10/11/19 14:00 Stool Escherichia coli 0157 Culture - Final NO GROWTH OF VIBRIO SPECIES OBTAINED NO GROWTH OF E COLI 0157 OBTAINED 10/11/19 14:00 Stool Clostridioides difficile Antigen - Final 10/11/19 14:00 Stool Clostridioides difficile Toxin Assay - Final 10/10/19 00:05 Urine - Urine Clean Catch Urine Culture - Final NO GROWTH OBTAINED 10/09/19 14:50 Urine For Antigen Detection Legionella Antigen - Final 10/09/19 14:50 Urine For Antigen Detection Streptococcus pneumoniae Antigen (M - Final 10/11/19 20:00 Sputum - Expectorated Sputum Culture - Preliminary NORMAL RESPIRATORY DONI 10/11/19 14:00 Stool Yersinia Culture - Preliminary NO ENTERIC PATHOGENS, 24 HOURS, ON PRIMARY PLATES NO ENTERIC PATHOGENS, 24 HOURS, ON PRIMARY PLATES 10/09/19 14:00 Blood - Peripheral Venous Blood Culture - Preliminary NO GROWTH OBTAINED AFTER 72 HOURS, INCUBATION TO CONTINUE FOR 2 DAYS. 10/09/19 14:00 Blood - Peripheral Venous Blood Culture - Preliminary NO GROWTH OBTAINED AFTER 72 HOURS, INCUBATION TO CONTINUE FOR 2 DAYS. Imaging 10/09/19: EKG: atrial sensed vent paced rhythm. qtc 480ms 10/09/19: CXR: large heart, unfolded aorta, R jugular line with tip in RA, double lead PPM. unfolded aorta, blurring of the hilar and congestive changes with base infiltrate with atelectasis and/or fluid. there is some atelectasis or infiltrate at the right base 10/09/19: chest CT, CTAP: lingular infiltrate, moderate bilateral pleural effusions and resultant bibasilar compressive atelectasis. these have increase mildly in size compared to 09/08/2019. bilateral flank subcutaneous edema. cardiomegaly. transvenous PPM. R internal jugular venous cath in place with cath tip at the superior cavoatrial junction. s/p jody. small amount of fluid in abdomen and pelvis mildly increased. colonic diverticulosis. possible bilateral nonobstructing renal calculi vs. atherosclerotic vascular calcifications. 10/10/19: ECHO: LV mildly dilated, severe global hypokinesis of LV. EF 20-25%. LVSF severelreduced. ppm lead in RV. LA desiree dilated, moderate MR, moderate TR. RVSP elevated at 40-50 mmHg. mild aortic sclerosis, mild AR, mildly dilated IVC. 10/10/19: R foot XR: no sign of fracture or subluxation, no sign of blastic or lytic changes. no calcaneal spurring, no swelling no foreign body. 10/11/19: CXR: persistence of lingula PNA with persistent infiltrate, some improvement in aeration. persistence of L pleural effusion suspected. Assessment/Plan 69 y/o M with PMH [place], ESRD on dialysis (//Sun), HLD, hypothyroidism, DM, former alcoholic until jun 2019, recent admission for RLE wound, as well as cholecystectomy (09/17/19) presenting to ED from [place] for fever, diarrhea, cough and SOB. #Fever 2/2 possible HAP -w/ evidence of infiltrate on CT scan, SOB, hypoxia -c/w zosyn (10/10); can change to PO ceftin in AM 500mg x 5 days per ID -blood, ucx, (-) thus far -will taper medrol to 40mg BID, from q8h ; can go on steroid taper -tylenol PRN for pain/fever -ID: Dr. Keith -Sx: Dr. Avila #SOB 2/2 PNA, CHF, vs. vol overload (HD) -c/w symbicort [facility], ventolin PRN -c/w medrol # R heel ulcer -wound care f/u -started on lyrica -vasc consulted: Dr. Fitzgerald #CAD, hx [place] -c/w imdur #thrombocytopenia -likely 2/2 infection -c/t monitor -f/u HIT panel #acute on chronic systolic CHF -severely reduced LVEF -has vol overload, however may also be from need to be dialyzed -hold losartan -coreg has been restarted -daily wt, strict i/o, na control 2g -Cardio: Dr. Snow #ESRD -HD per nephro -nephro: Dr. Dubose #DM2 -c/w ISS, BGM ACHS -on levemir 6 u sq HS> will uptitrate to 10u as BG uncontrolled in hospital #F/E/N avoid IVF as HD patient continue to follow lytes renal diet #PPX DVT: hep 5k sq tid #Dispo monitoring on med-surg from [place] will need fistula as outpt can change to PO ceftin in AM 500mg x 5 days per ID steroid taper on d/c pre and post on d/c <Tracey King - Last Filed: 10/14/19 16:17> - Note Progress Note: Discussed care with patient at length; NA provided additional ugandan translation. In summation, the patient states taht he would like to be transferred if there is nobody that can evaluate his lower etremity. He has continued pulses, etc. Prior arterial duplex results noted. Here for acute on chronic respiratory failure with hypernatremia and heel pain with known severe underlying vascular disease. 10 sys ROS done and negative aside from HPI Problems include: -Acute on Chronic respiratory failure, improved (multifactoral) -HFrEF exacerbation [(NYHA-III) complicated by ESRD (s/p BSX AICD, 2/2 NICM vs. IsCM (recently from [place], improved] *Evidenced on exam and imaging, subjective SOB improved *Resuming home losartan and BB. Prior echo noted. Fluid removal per nephro with HD. -CAP w/ effusion *Continue abx per ID, FU with pulmonary -COPD hx, +/- exacerbation *No recent PFTs, likely triggered by CAP. Can refer for OP PFTs and FU with pulmonary consultation -ESRD on HD *HD today with K-bath/fluid removal per nephro -Acute Hypernatremia *Followup PM BMP; will discuss with nephro -Pancytopenia (leukopenia, anemia, thrombocytopenia) *checking HIV, HCV Ab. Trend CBC. Guideline based XF perameters. Consult heme if needed. 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 is chronic *FU with vascular; Checking ESR/CRP. *Starting gabapentin for ongoing neuropathic component of pain with acknowledgement of underlying renal disease. Further testing per vascular. -Hx Hypothyroidism -Hx HLD -Hx HTN (resumed home meds as stated above) -Hx DM (Continue current management) -Status post recent cholecystectomy (no current issues per surgery) -Overweight (BMI 26; impairs wound healing) Full Code <Zeferino Moore - Last Filed: 10/15/19 07:17>
--- NOTE | 2019-10-14 16:58 | PN ---
Progress Note, Physician History of Present Illness: Pt seen and examined at bedside. He is awake and alert. He still has cough. - Current Medication List Current Medications: Active Medications Acetaminophen (Tylenol -) 650 mg PO Q6H PRN PRN Reason: FEVER Albuterol Sulfate (Ventolin 0.083% Nebulizer Soln -) 1 amp NEB Q4H PRN PRN Reason: SHORT OF BREATH/WHEEZING Last Admin: 10/12/19 11:40 Dose: 1 amp Budesonide/Formoterol Fumarate (Symbicort 80/4.5mcg -) 2 puff IH BID [facility] Last Admin: 10/14/19 11:03 Dose: 2 puff Buspirone HCl (Buspar -) 5 mg PO BID [facility] Last Admin: 10/14/19 10:45 Dose: 5 mg Carvedilol (Coreg -) 6.25 mg PO BID [facility] Last Admin: 10/14/19 10:45 Dose: 6.25 mg Famotidine (Pepcid -) 20 mg PO DAILY [facility] Last Admin: 10/14/19 10:46 Dose: 20 mg Piperacillin Sod/Tazobactam (Sod 2.25 gm/ Dextrose) 50 mls @ 100 mls/hr IVPB Q8H-IV [facility]; Protocol Last Admin: 10/14/19 10:54 Dose: 100 mls/hr Insulin Aspart (Novolog Vial Sliding Scale -) 1 vial SQ ACHS [facility]; Protocol Last Admin: 10/14/19 12:32 Dose: 6 units Insulin Detemir (Levemir Vial) [address] [facility] Ipratropium [place] (Atrovent 0.02% Nebulizer -) 1 amp NEB RBID [facility] Last Admin: 10/14/19 07:35 Dose: 1 amp Isosorbide Dinitrate (Isordil -) 20 mg PO BIDISORDIL [facility] Last Admin: 10/14/19 10:59 Dose: 20 mg Levothyroxine Sodium (Synthroid -) 125 mcg PO DAILY@0700 [facility] Last Admin: 10/14/19 06:41 Dose: 125 mcg Lorazepam (Ativan -) 2 mg PO HS [facility] Last Admin: 10/13/19 21:52 Dose: 2 mg Melatonin (Melatonin) 10 mg PO HS [facility] Last Admin: 10/13/19 21:52 Dose: 10 mg Methylprednisolone Sodium Succinate (Solu-Medrol -) 40 mg IVPUSH BID [facility] Last Admin: 10/14/19 10:47 Dose: 40 mg Pregabalin (Lyrica -) 75 mg PO BID [facility] Last Admin: 10/14/19 10:45 Dose: 75 mg - Objective Vital Signs: Vital Signs Temperature 98.1 F 10/14/19 13:00 Pulse Rate 72 10/14/19 13:00 Respiratory Rate 20 10/14/19 13:00 Blood Pressure 114/56 L 10/14/19 13:00 O2 Sat by Pulse Oximetry (%) 96 10/13/19 21:00 Constitutional: Yes: Calm Eyes: Yes: Conjunctiva Clear HENT: Yes: Atraumatic Neck: Yes: Supple Cardiovascular: Yes: S1, S2 Respiratory: Yes: On Nasal O2 Gastrointestinal: Yes: Soft Genitourinary: Yes: WNL Musculoskeletal: Yes: WNL Extremities: Yes: WNL Edema: No Neurological: Yes: Oriented Psychiatric: Yes: Oriented Labs: CBC, BMP 10/13/19 06:56 10/14/19 06:13 INR, PTT INR 1.00 (0.83-1.09) 10/09/19 14:00 Problem List - Problems (1) Abdominal pain Code(s): R10.9 - UNSPECIFIED ABDOMINAL PAIN (2) Cardiomyopathy Code(s): I42.9 - CARDIOMYOPATHY, UNSPECIFIED Qualifiers: (3) ESRD (end stage renal disease) Code(s): N18.6 - END STAGE RENAL DISEASE (4) HTN (hypertension) Code(s): I10 - ESSENTIAL (PRIMARY) HYPERTENSION Qualifiers: Assessment/Plan Current Medications Generic Name Dose Route Start Last Admin Trade Name Freq PRN Reason Stop Dose Admin Acetaminophen 650 mg 10/10/19 15:03 Tylenol - PO Q6H PRN FEVER Albuterol Sulfate 1 amp 10/10/19 15:03 10/12/19 11:40 Ventolin 0.083% Nebulizer Soln - NEB 1 amp Q4H PRN Administration SHORT OF BREATH/WHEEZING Budesonide/Formoterol Fumarate 2 puff 10/10/19 10:00 10/14/19 11:03 Symbicort 80/4.5mcg - IH 2 puff BID [facility] Administration Buspirone HCl 5 mg 10/11/19 13:45 10/14/19 10:45 Buspar - PO 5 mg BID [facility] Administration Carvedilol 6.25 mg 10/11/19 13:45 10/14/19 10:45 Coreg - PO 6.25 mg BID [facility] Administration Famotidine 20 mg 10/10/19 10:00 10/14/19 10:46 Pepcid - PO 20 mg DAILY [facility] Administration Piperacillin Sod/Tazobactam 50 mls @ 100 mls/hr 10/10/19 12:15 10/14/19 10:54 Sod 2.25 gm/ Dextrose IVPB 100 mls/hr Q8H-IV [facility] Administration Protocol Insulin Aspart 1 vial 10/11/19 19:50 10/14/19 12:32 Novolog Vial Sliding Scale - SQ 6 units ACHS [facility] Administration Protocol Insulin Detemir 10 units 10/14/19 07:50 Levemir Vial SQ HS [facility] Ipratropium [place] 1 amp 10/11/19 20:00 10/14/19 07:35 Atrovent 0.02% Nebulizer - NEB 1 amp RBID [facility] Administration Isosorbide Dinitrate 20 mg 10/11/19 18:00 10/14/19 10:59 Isordil - PO 20 mg BIDISORDIL [facility] Administration Levothyroxine Sodium 125 mcg 10/10/19 07:00 10/14/19 06:41 Synthroid - PO 125 mcg DAILY@0700 [facility] Administration Lorazepam 2 mg 10/11/19 22:00 10/13/19 21:52 Ativan - PO 2 mg HS [facility] Administration Melatonin 10 mg 10/10/19 22:00 10/13/19 21:52 Melatonin PO 10 mg HS [facility] Administration Methylprednisolone Sodium Succinate 40 mg 10/13/19 22:00 10/14/19 10:47 Solu-Medrol - IVPUSH 40 mg BID [facility] Administration Pregabalin 75 mg 10/12/19 13:45 10/14/19 10:45 Lyrica - PO 75 mg BID [facility] Administration Impression 1. ESRD 2. HTN 3. cellulitis 4. DM 5. hypothyroidism 6. pleural effusion Plan - next HD on - renal diet - abx per medical team - will need fistula once stable - lyrica should be dosed at q 24 hrs
[2019-10-14] MEDS: MELATONIN 5 MG TABLETS PO SCH (21:48)
[2019-10-14] MEDS: LORazepam 1 MG TABLET PO SCH (21:48)
[2019-10-14] MEDS: INSULIN (LEVEMIR) 100 UNITS/ML UNITS SQ SCH (21:49)
[2019-10-15] MEDS ORDERED: DEXTROSE 5%-WATER - 50 ML IVPB ONE ×2 (01:34→10:30)
[2019-10-15] MEDS ORDERED: PIPERACILLIN/TAZOBACTAM 2.25 GM VIAL IVPB ONE ×2 (01:34→10:30)
[2019-10-15] MEDS: PIPERACILLIN/TAZOB 2.25 GM 2.25 GM in DEXTROSE 5%-WATER - 50 ML IVPB SCH ×2 (02:08→10:53)
[2019-10-15] MEDS: INSULIN SLIDING SCALE (NOVOLOG) 1 VIAL SQ SCH ×4 (07:00→22:10)
[2019-10-15] MEDS: LEVOTHYROXINE NA 125 MCG TABLET (FP) PO SCH (07:00)
[2019-10-15] MEDS: IPRATROPIUM BR 0.02% 0.5 MG/2.5 ML VIAL.NEB. NEB SCH ×2 (07:55→20:39)
[2019-10-15] MEDS ORDERED: PT OWN MED DRAWER 7, Y5N ONE ×2 (10:30→18:17)
[2019-10-15] MEDS: busPIRone HCL 5 MG TABLET PO SCH ×2 (10:52→22:09)
[2019-10-15] MEDS: PREGABALIN 75 MG CAPSULE PO SCH (10:52)
[2019-10-15] MEDS: CARVEDILOL 6.25 MG TABLET (FP) PO SCH ×2 (10:52→22:09)
[2019-10-15] MEDS: methylPREDNISolone NA SUCC 40 MG/1 ML VIAL IVPUSH SCH (10:52)
[2019-10-15] MEDS: ISOSORBIDE DINITRATE 20 MG TABLET (FP) PO SCH ×2 (10:53→18:12)
[2019-10-15] MEDS: BUDESONIDE/FORMETEROL FUMARATE 80/4.5 mcg INHALER IH SCH ×2 (10:55→22:11)
[2019-10-15] MEDS: FAMOTIDINE 20 MG TABLET PO SCH (11:05)
[2019-10-15] MEDS ORDERED: INSULIN (NOVOLOG) ASPART 100 UNITS/ML 10ML VIAL ONE (11:27)
--- NOTE | 2019-10-15 12:12 | PN ---
Progress Note (short form) - Note Progress Note: Resting in NAD on NC O2. Breathing feels OK. No acute events overnight. Intake & Output 10/12/19 10/13/19 10/14/19 10/15/19 23:59 23:59 23:59 23:59 Intake Total 403 400 1422 150 Output Total 100 3620 300 Balance 50 -3120 1618 150 Weight 157 lb 8 oz Last Vital Signs Temp Pulse Resp BP Pulse Ox 97.9 F 68 20 112/57 L 96 10/15/19 10:38 10/15/19 10:38 10/15/19 10:38 10/15/19 10:38 10/14/19 21:00 Active Medications Acetaminophen (Tylenol -) 650 mg PO Q6H PRN PRN Reason: FEVER Albuterol Sulfate (Ventolin 0.083% Nebulizer Soln -) 1 amp NEB Q4H PRN PRN Reason: SHORT OF BREATH/WHEEZING Last Admin: 10/12/19 11:40 Dose: 1 amp Budesonide/Formoterol Fumarate (Symbicort 80/4.5mcg -) 2 puff IH BID [facility] Last Admin: 10/15/19 10:55 Dose: 2 puff Buspirone HCl (Buspar -) 5 mg PO BID [facility] Last Admin: 10/15/19 10:52 Dose: 5 mg Carvedilol (Coreg -) 6.25 mg PO BID [facility] Last Admin: 10/15/19 10:52 Dose: 6.25 mg Famotidine (Pepcid -) 20 mg PO DAILY [facility] Last Admin: 10/15/19 11:05 Dose: 20 mg Piperacillin Sod/Tazobactam (Sod 2.25 gm/ Dextrose) 50 mls @ 100 mls/hr IVPB Q8H-IV [facility]; Protocol Last Admin: 10/15/19 10:53 Dose: 100 mls/hr Insulin Aspart (Novolog Vial Sliding Scale -) 1 vial SQ ACHS [facility]; Protocol Last Admin: 10/15/19 11:35 Dose: 8 units Insulin Detemir (Levemir Vial) 10 units SQ HS [facility] Last Admin: 10/14/19 21:49 Dose: 10 units Ipratropium [place] (Atrovent 0.02% Nebulizer -) 1 amp NEB RBID [facility] Last Admin: 10/15/19 07:55 Dose: 1 amp Isosorbide Dinitrate (Isordil -) 20 mg PO BIDISORDIL [facility] Last Admin: 10/15/19 10:53 Dose: 20 mg Levothyroxine Sodium (Synthroid -) 125 mcg PO DAILY@0700 [facility] Last Admin: 10/15/19 07:00 Dose: 125 mcg Lorazepam (Ativan -) 2 mg PO HS [facility] Last Admin: 10/14/19 21:48 Dose: 2 mg Melatonin (Melatonin) 10 mg PO [facility] Last Admin: 10/14/19 21:48 Dose: 10 mg Methylprednisolone Sodium Succinate (Solu-Medrol -) 40 mg IVPUSH BID [facility] Last Admin: 10/15/19 10:52 Dose: 40 mg Pregabalin (Lyrica -) 75 mg PO DAILY [facility] Last Admin: 10/15/19 10:52 Dose: 75 mg Constitutional: Yes: No Distress Eyes: Yes: Conjunctiva Clear, EOM Intact HENT: Yes: Atraumatic, Normocephalic Neck: Yes: Supple, Trachea Midline Cardiovascular: Yes: Regular Rate and Rhythm Respiratory: Yes: Cough, Diminished, On Nasal O2, Rhonchi. No: Accessory Muscle Use, SOB, Stridor, Wheezes ...Inspection: Yes: WNL ...Clubbing: No Gastrointestinal: Yes: Normal Bowel Sounds, Soft Musculoskeletal: Yes: WNL Extremities: Yes: WNL Edema: No Peripheral Pulses WNL: Yes Integumentary: Yes: WNL Neurological: Yes: WNL, Alert, Oriented ...Motor Strength: WNL Psychiatric: Yes: WNL, Alert, Oriented Labs: Laboratory Results - last 24 hr 10/14/19 10/14/19 10/15/19 17:23 21:16 06:47 POC Glucometer 327 400 339 10/15/19 11:31 POC Glucometer 303 Problem List - Problems (1) Pleural effusion Code(s): J90 - PLEURAL EFFUSION, NOT ELSEWHERE CLASSIFIED (2) COPD (chronic obstructive pulmonary disease) Code(s): J44.9 - CHRONIC OBSTRUCTIVE PULMONARY DISEASE, UNSPECIFIED (3) Atelectasis of both lungs Code(s): J98.11 - ATELECTASIS (4) Biventricular ICD (implantable cardioverter-defibrillator) in place Code(s): Z95.810 - PRESENCE OF AUTOMATIC (IMPLANTABLE) CARDIAC DEFIBRILLATOR (5) Cardiomyopathy Code(s): I42.9 - CARDIOMYOPATHY, UNSPECIFIED Qualifiers: (6) Diabetes Code(s): E11.9 - TYPE 2 DIABETES MELLITUS WITHOUT COMPLICATIONS Qualifiers: Diabetes mellitus type: type 2 Chronic kidney disease stage: on chronic dialysis (7) ESRD (end stage renal disease) Code(s): N18.6 - END STAGE RENAL DISEASE (8) HTN (hypertension) Code(s): I10 - ESSENTIAL (PRIMARY) HYPERTENSION Qualifiers: (9) Hypothyroid Code(s): E03.9 - HYPOTHYROIDISM, UNSPECIFIED Qualifiers: Hypothyroidism type: unspecified Qualified Code(s): E03.9 - Hypothyroidism , unspecified (10) Fever Code(s): R50.9 - FEVER, UNSPECIFIED (11) Pneumonia Code(s): J18.9 - PNEUMONIA, UNSPECIFIED ORGANISM (12) Abdominal pain Code(s): R10.9 - UNSPECIFIED ABDOMINAL PAIN (13) Right foot pain Code(s): M79.671 - PAIN IN RIGHT FOOT (14) S/P laparoscopic cholecystectomy Code(s): Z90.49 - ACQUIRED ABSENCE OF OTHER SPECIFIED PARTS OF DIGESTIVE TRACT Assessment/Plan Can change to PO ABX Can DC Medrol BD TX O2 to maintain saturation VTE prophylaxis HD per Renal No smoking counseled PFTs once stable as an outpatient DC planning Dr Richey Problem List - Problems (1) Pleural effusion Code(s): J90 - PLEURAL EFFUSION, NOT ELSEWHERE CLASSIFIED (2) COPD (chronic obstructive pulmonary disease) Code(s): J44.9 - CHRONIC OBSTRUCTIVE PULMONARY DISEASE, UNSPECIFIED (3) Atelectasis of both lungs Code(s): J98.11 - ATELECTASIS (4) Biventricular ICD (implantable cardioverter-defibrillator) in place Code(s): Z95.810 - PRESENCE OF AUTOMATIC (IMPLANTABLE) CARDIAC DEFIBRILLATOR (5) Cardiomyopathy Code(s): I42.9 - CARDIOMYOPATHY, UNSPECIFIED Qualifiers: (6) Diabetes Code(s): E11.9 - TYPE 2 DIABETES MELLITUS WITHOUT COMPLICATIONS Qualifiers: Diabetes mellitus type: type 2 Chronic kidney disease stage: on chronic dialysis (7) ESRD (end stage renal disease) Code(s): N18.6 - END STAGE RENAL DISEASE (8) HTN (hypertension) Code(s): I10 - ESSENTIAL (PRIMARY) HYPERTENSION Qualifiers: (9) Hypothyroid Code(s): E03.9 - HYPOTHYROIDISM, UNSPECIFIED Qualifiers: Hypothyroidism type: unspecified Qualified Code(s): E03.9 - Hypothyroidism , unspecified (10) Fever Code(s): R50.9 - FEVER, UNSPECIFIED (11) Pneumonia Code(s): J18.9 - PNEUMONIA, UNSPECIFIED ORGANISM (12) Abdominal pain Code(s): R10.9 - UNSPECIFIED ABDOMINAL PAIN (13) Right foot pain Code(s): M79.671 - PAIN IN RIGHT FOOT (14) S/P laparoscopic cholecystectomy Code(s): Z90.49 - ACQUIRED ABSENCE OF OTHER SPECIFIED PARTS OF DIGESTIVE TRACT
--- NOTE | 2019-10-15 12:37 | PN ---
Progress Note (short form) - Note Progress Note: He is still complaining of shortness of breath and wheezing denies any fever chills nausea vomiting he still feels like something is stuck in his lung. He was on IV Solu-Medrol but stopped today for yesterday and he is still having same symptoms Vital Signs Period Temp Pulse Resp BP Sys/[place] Pulse Ox Last 24 Hr 97.9 F-98.2 F 66-77 20-20 112-142/56-75 96 Physical Exam general: pleasant, in NAD heent: NCAT, PERRLA neck: supple, without jvd cardio: S1, S2 RRR. no r/m/g pulm: He has wheezing on both sides which is more on inspiratory than expiratory abdomen: nontender, nondistended LE: 1+ pulses dp. no edema. +wrapped R foot Results of all the results of radiological tests Imaging 10/09/19: EKG: atrial sensed vent paced rhythm. qtc 480ms 10/09/19: CXR: large heart, unfolded aorta, R jugular line with tip in RA, double lead PPM. unfolded aorta, blurring of the hilar and congestive changes with base infiltrate with atelectasis and/or fluid. there is some atelectasis or infiltrate at the right base 10/09/19: chest CT, CTAP: lingular infiltrate, moderate bilateral pleural effusions and resultant bibasilar compressive atelectasis. these have increase mildly in size compared to 09/08/2019. bilateral flank subcutaneous edema. cardiomegaly. transvenous PPM. R internal jugular venous cath in place with cath tip at the superior cavoatrial junction. s/p jody. small amount of fluid in abdomen and pelvis mildly increased. colonic diverticulosis. possible bilateral nonobstructing renal calculi vs. atherosclerotic vascular calcifications. 10/10/19: ECHO: LV mildly dilated, severe global hypokinesis of LV. EF 20-25%. LVSF severelreduced. ppm lead in RV. LA desiree dilated, moderate MR, moderate TR. RVSP elevated at 40-50 mmHg. mild aortic sclerosis, mild AR, mildly dilated IVC. 10/10/19: R foot XR: no sign of fracture or subluxation, no sign of blastic or lytic changes. no calcaneal spurring, no swelling no foreign body. 10/11/19: CXR: persistence of lingula PNA with persistent infiltrate, some improvement in aeration. persistence of L pleural effusion suspected. Assessment/Plan 69 y/o M with PMH NV, ESRD on dialysis (), HLD, hypothyroidism, DM, former alcoholic until jun 2019, recent admission for RLE wound, as well as cholecystectomy (09/17/19) presenting to ED from [place] for fever, diarrhea, cough and SOB. Pneumonia with shortness of breath and COPD Continue nebulizer treatment Symbicort he is already off IV steroids but I will start him back on p.o. steroids 20 mg twice a day from today as per ID we can change his antibiotic to p.o. So I will stop his Zosyn today and start him on Ceftin 500 mg twice a day Right heel ulcer and diabetic neuropathy continue daily wound on his foot Heart failure renal failure and type 2 diabetes He is stable will continue same medication and he is on 3 times a week hemodialysis which he gets today because his schedule is Sunday. Once he stabilized in the next 1 to 2 days he can be retransferred back to his long-term.
[2019-10-15] MEDS: CEFUROXIME AXETIL 500 MG TABLET PO SCH ×2 (13:45→22:08)
[2019-10-15] MEDS: predniSONE 20 MG TABLET (UD) PO SCH ×2 (13:45→22:09)
--- NOTE | 2019-10-15 18:24 | PN ---
Progress Note, Physician History of Present Illness: Pt seen and examined at bedside. He is awake and alert. he feels that his breathing is improving. - Current Medication List Current Medications: Active Medications Acetaminophen (Tylenol -) 650 mg PO Q6H PRN PRN Reason: FEVER Albuterol Sulfate (Ventolin 0.083% Nebulizer Soln -) 1 amp NEB Q4H PRN PRN Reason: SHORT OF BREATH/WHEEZING Last Admin: 10/12/19 11:40 Dose: 1 amp Budesonide/Formoterol Fumarate (Symbicort 80/4.5mcg -) 2 puff IH BID [facility] Last Admin: 10/15/19 10:55 Dose: 2 puff Buspirone HCl (Buspar -) 5 mg PO BID [facility] Last Admin: 10/15/19 10:52 Dose: 5 mg Carvedilol (Coreg -) 6.25 mg PO BID [facility] Last Admin: 10/15/19 10:52 Dose: 6.25 mg Cefuroxime Axetil (Ceftin -) 500 mg PO BID [facility] Last Admin: 10/15/19 13:45 Dose: Not Given Famotidine (Pepcid -) 20 mg PO DAILY [facility] Last Admin: 10/15/19 11:05 Dose: 20 mg Insulin Aspart (Novolog Vial Sliding Scale -) 1 vial SQ [facility]; Protocol Last Admin: 10/15/19 17:14 Dose: 8 units Insulin Detemir (Levemir Vial) 10 units SQ [facility] Last Admin: 10/14/19 21:49 Dose: 10 units Ipratropium [place] (Atrovent 0.02% Nebulizer -) 1 amp NEB RBID [facility] Last Admin: 10/15/19 07:55 Dose: 1 amp Isosorbide Dinitrate (Isordil -) 20 mg PO BIDISORDIL [facility] Last Admin: 10/15/19 18:12 Dose: 20 mg Levothyroxine Sodium (Synthroid -) 125 mcg PO DAILY@0700 [facility] Last Admin: 10/15/19 07:00 Dose: 125 mcg Lorazepam (Ativan -) 2 mg PO HS [facility] Last Admin: 10/14/19 21:48 Dose: 2 mg Melatonin (Melatonin) 10 mg PO [facility] Last Admin: 10/14/19 21:48 Dose: 10 mg Prednisone (Deltasone -) 20 mg PO BID [facility] Last Admin: 10/15/19 13:45 Dose: Not Given Pregabalin (Lyrica -) 75 mg PO DAILY [facility] Last Admin: 10/15/19 10:52 Dose: 75 mg - Objective Vital Signs: Vital Signs Temperature 97.3 F L 10/15/19 15:40 Pulse Rate 69 10/15/19 18:07 Respiratory Rate 20 10/15/19 18:07 Blood Pressure 127/62 10/15/19 18:07 O2 Sat by Pulse Oximetry (%) 99 10/15/19 11:00 Constitutional: Yes: Calm Eyes: Yes: Conjunctiva Clear HENT: Yes: Atraumatic Neck: Yes: Supple Cardiovascular: Yes: S1, S2 Respiratory: Yes: On Nasal O2 Gastrointestinal: Yes: Soft Genitourinary: Yes: WNL Edema: Yes Edema: LLE: Trace, RLE: Trace Neurological: Yes: Oriented Psychiatric: Yes: Oriented Labs: CBC, BMP 10/13/19 06:56 10/14/19 06:13 INR, PTT INR 1.00 (0.83-1.09) 10/09/19 14:00 Problem List - Problems (1) Abdominal pain Code(s): R10.9 - UNSPECIFIED ABDOMINAL PAIN (2) Cardiomyopathy Code(s): I42.9 - CARDIOMYOPATHY, UNSPECIFIED Qualifiers: (3) ESRD (end stage renal disease) Code(s): N18.6 - END STAGE RENAL DISEASE (4) HTN (hypertension) Code(s): I10 - ESSENTIAL (PRIMARY) HYPERTENSION Qualifiers: Assessment/Plan Current Medications Generic Name Dose Route Start Last Admin Trade Name Freq PRN Reason Stop Dose Admin Acetaminophen 650 mg 10/10/19 15:03 Tylenol - PO Q6H PRN FEVER Albuterol Sulfate 1 amp 10/10/19 15:03 10/12/19 11:40 Ventolin 0.083% Nebulizer Soln - NEB 1 amp Q4H PRN Administration SHORT OF BREATH/WHEEZING Budesonide/Formoterol Fumarate 2 puff 10/10/19 10:00 10/15/19 10:55 Symbicort 80/4.5mcg - IH 2 puff BID [facility] Administration Buspirone HCl 5 mg 10/11/19 13:45 10/15/19 10:52 Buspar - PO 5 mg BID [facility] Administration Carvedilol 6.25 mg 10/11/19 13:45 10/15/19 10:52 Coreg - PO 6.25 mg BID [facility] Administration Cefuroxime Axetil 500 mg 10/15/19 12:30 10/15/19 13:45 Ceftin - PO Not Given BID [facility] Famotidine 20 mg 10/10/19 10:00 10/15/19 11:05 Pepcid - PO 20 mg DAILY [facility] Administration Insulin Aspart 1 vial 10/14/19 21:57 10/15/19 17:14 Novolog Vial Sliding Scale - SQ 8 units ACHS [facility] Administration Protocol Insulin Detemir 10 units 10/14/19 07:50 10/14/19 21:49 Levemir Vial SQ 10 units HS [facility] Administration Ipratropium [place] 1 amp 10/11/19 20:00 10/15/19 07:55 Atrovent 0.02% Nebulizer - NEB 1 amp RBID [facility] Administration Isosorbide Dinitrate 20 mg 10/11/19 18:00 10/15/19 18:12 Isordil - PO 20 mg BIDISORDIL [facility] Administration Levothyroxine Sodium 125 mcg 10/10/19 07:00 10/15/19 07:00 Synthroid - PO 125 mcg DAILY@0700 [facility] Administration Lorazepam 2 mg 10/11/19 22:00 10/14/19 21:48 Ativan - PO 2 mg HS [facility] Administration Melatonin 10 mg 10/10/19 22:00 10/14/19 21:48 Melatonin PO 10 mg HS [facility] Administration Prednisone 20 mg 10/15/19 12:45 10/15/19 13:45 Deltasone - PO Not Given BID [facility] Pregabalin 75 mg 10/15/19 10:00 10/15/19 10:52 Lyrica - PO 75 mg DAILY [facility] Administration Impression 1. ESRD 2. HTN 3. cellulitis 4. DM 5. hypothyroidism 6. pleural effusion Plan - HD tomorrow - taper steroids as tolerated - renal diet - restrict fluid intake - will need fistula once stable
[2019-10-15] MEDS ORDERED: INSULIN (NOVOLOG) ASPART 100 UNITS/ML 10ML VIAL SQ ONE (22:00)
[2019-10-15] MEDS: LORazepam 1 MG TABLET PO SCH (22:08)
[2019-10-15] MEDS: MELATONIN 5 MG TABLETS PO SCH (22:09)
[2019-10-15] MEDS: INSULIN (LEVEMIR) 100 UNITS/ML UNITS SQ SCH (22:09)
[2019-10-16] MEDS: INSULIN SLIDING SCALE (NOVOLOG) 1 VIAL SQ SCH ×4 (06:50→21:34)
[2019-10-16] MEDS: LEVOTHYROXINE NA 125 MCG TABLET (FP) PO SCH (06:51)
[2019-10-16] MEDS ORDERED: INSULIN (NOVOLOG) ASPART 100 UNITS/ML 10ML VIAL ONE ×4 (07:00→21:30)
[2019-10-16] MEDS: IPRATROPIUM BR 0.02% 0.5 MG/2.5 ML VIAL.NEB. NEB SCH (08:16)
--- NOTE | 2019-10-16 09:02 | PN ---
Teaching Attending Note Name of Resident: Tracey King ATTENDING PHYSICIAN STATEMENT I saw and evaluated the patient. I reviewed the resident's note and discussed the case with the resident. I agree with the resident's findings and plan as documented. SUBJECTIVE: Patient complaint of shortness of breath OBJECTIVE: Vital Signs Temperature 97.9 F 10/16/19 06:00 Pulse Rate 67 10/16/19 06:00 Respiratory Rate 20 10/16/19 06:00 Blood Pressure 119/68 10/16/19 06:00 O2 Sat by Pulse Oximetry (%) 98 10/15/19 21:00 General: Elderly man sick looking, mild respiratory distress HEENT; mucous membranes moist, no anemia, no jaundice, PERRLA, no nystagmus Neck: No JVD, supple, no bruit, thyroid palpably normal, normal carotid pulsations. Chest: Nontender, bilateral basal rales. CVS: S1-S2 regular no murmur/gallop/rub Abdomen: Nondistended, soft, bowel sounds present. 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 , no gross motor sensory deficit CBC, BMP 10/13/19 06:56 10/14/19 06:13 Active Medications Acetaminophen (Tylenol -) 650 mg PO Q6H PRN PRN Reason: FEVER Albuterol Sulfate (Ventolin 0.083% Nebulizer Soln -) 1 amp NEB Q4H PRN PRN Reason: SHORT OF BREATH/WHEEZING Last Admin: 10/12/19 11:40 Dose: 1 amp Budesonide/Formoterol Fumarate (Symbicort 80/4.5mcg -) 2 puff IH BID [facility] Last Admin: 10/15/19 22:11 Dose: 2 puff Buspirone HCl (Buspar -) 5 mg PO BID [facility] Last Admin: 10/15/19 22:09 Dose: 5 mg Carvedilol (Coreg -) 6.25 mg PO BID [facility] Last Admin: 10/15/19 22:09 Dose: 6.25 mg Cefuroxime Axetil (Ceftin -) 500 mg PO BID [facility] Last Admin: 10/15/19 22:08 Dose: 500 mg Epoetin Yuan (Epogen -) 2,000 unit IVPUSH ONCE ONE Stop: 10/16/19 18:25 Famotidine (Pepcid -) 20 mg PO DAILY [facility] Last Admin: 10/15/19 11:05 Dose: 20 mg Heparin Sodium (Porcine) (Heparin -) 500 unit IVPUSH ONCE ONE Stop: 10/16/19 18:25 Sodium Chloride (Normal Saline -) 250 mls @ 3,000 mls/hr IV PRN PRN PRN Reason: Hypotension during Dialysis Stop: 10/16/19 18:24 Insulin Aspart (Novolog Vial Sliding Scale -) 1 vial SQ [facility]; Protocol Last Admin: 10/16/19 06:50 Dose: 8 units Insulin Detemir (Levemir Vial) 10 units SQ [facility] Last Admin: 10/15/19 22:09 Dose: 10 units Ipratropium [place] (Atrovent 0.02% Nebulizer -) 1 amp NEB RBID [facility] Last Admin: 10/16/19 08:16 Dose: 1 amp Isosorbide Dinitrate (Isordil -) 20 mg PO BIDISORDIL [facility] Last Admin: 10/15/19 18:12 Dose: 20 mg Levothyroxine Sodium (Synthroid -) 125 mcg PO DAILY@0700 [facility] Last Admin: 10/16/19 06:51 Dose: 125 mcg Lorazepam (Ativan -) 2 mg PO [facility] Last Admin: 10/15/19 22:08 Dose: 2 mg Melatonin (Melatonin) 10 mg PO [facility] Last Admin: 10/15/19 22:09 Dose: 10 mg Prednisone (Deltasone -) 20 mg PO BID [facility] Last Admin: 10/15/19 22:09 Dose: 20 mg Pregabalin (Lyrica -) 75 mg PO DAILY [facility] Last Admin: 10/15/19 10:52 Dose: 75 mg ASSESSMENT AND PLAN: 69 years old man from [place], recently came to [facility] compliance is questionable history of dementia, hypertension, type 2 diabetes mellitus, systolic heart failure last EF in August 2019 20 to 25% global hypokinesis, status post BARREL LINER done in 2013 ischemic/nonischemic cardiomyopathy, CKD stage V on hemodialysis via permacath, COPD presents with decompensated heart failure with pneumonia, evaluated by cardiology, infectious disease, nephrology, patient is due for hemodialysis. Plan: Continue current management Problem List - Problems (1) Acute decompensated heart failure Assessment/Plan: Patient is a known case of systolic heart failure with reduced ejection fraction , status post BARREL LINER, recently interrogated a short run of NSVT, needs optimization of fluid management via hemodialysis and continue current medications on Coreg, losartan need to be resumed. Follow-up cardiology recommendations Problems reviewed: Yes Code(s): I50.9 - HEART FAILURE, UNSPECIFIED (2) COPD (chronic obstructive pulmonary disease) Assessment/Plan: COPD exacerbation evaluated by cardiology continue current bronchodilators. Problems reviewed: Yes Code(s): J44.9 - CHRONIC OBSTRUCTIVE PULMONARY DISEASE, UNSPECIFIED (3) Pneumonia Assessment/Plan: Switch to p.o. antibiotic remained afebrile Problems reviewed: Yes Code(s): J18.9 - PNEUMONIA, UNSPECIFIED ORGANISM (4) ESRD (end stage renal disease) Assessment/Plan: On hemodialysis needs a vein mapping Problems reviewed: Yes Code(s): N18.6 - END STAGE RENAL DISEASE (5) Heel ulcer Assessment/Plan: Follow-up podiatry/wound care recommendations Problems reviewed: Yes Code(s): L97.409 - NON-PRS CHRONIC ULCER OF UNSP HEEL AND MIDFOOT W UNSP SEVERT (6) Diabetes Assessment/Plan: Needs optimization of glycemic control Problems reviewed: Yes Code(s): E11.9 - TYPE 2 DIABETES MELLITUS WITHOUT COMPLICATIONS Qualifiers: Diabetes mellitus type: type 2 Chronic kidney disease stage: on chronic dialysis (7) Hypothyroid Assessment/Plan: Continue levothyroxine Problems reviewed: Yes Code(s): E03.9 - HYPOTHYROIDISM, UNSPECIFIED Qualifiers: Hypothyroidism type: unspecified Qualified Code(s): E03.9 - Hypothyroidism , unspecified
[2019-10-16] MEDS ORDERED: EPOETIN ALFA 2,000 UNIT/1 ML VIAL IVPUSH ONE (10:00)
[2019-10-16] MEDS ORDERED: SODIUM CHLORIDE 250 ML IV PRN (10:00)
[2019-10-16] MEDS ORDERED: HEPARIN NA (PORCINE) 5,000 UNITS/ML 1ML VIAL IVPUSH ONE (10:00)
[2019-10-16] MEDS ORDERED: PT OWN MED DRAWER 7, Y5N ONE (10:12)
[2019-10-16] MEDS: busPIRone HCL 5 MG TABLET PO SCH ×2 (10:17→21:37)
[2019-10-16] MEDS: predniSONE 20 MG TABLET (UD) PO SCH (10:17)
[2019-10-16] MEDS: CEFUROXIME AXETIL 500 MG TABLET PO SCH ×2 (10:18→21:33)
[2019-10-16] MEDS: ISOSORBIDE DINITRATE 20 MG TABLET (FP) PO SCH ×2 (10:18→18:02)
[2019-10-16] MEDS: PREGABALIN 75 MG CAPSULE PO SCH (10:18)
[2019-10-16] MEDS: FAMOTIDINE 20 MG TABLET PO SCH (10:18)
[2019-10-16] MEDS: CARVEDILOL 6.25 MG TABLET (FP) PO SCH ×2 (10:18→21:33)
[2019-10-16] MEDS: BUDESONIDE/FORMETEROL FUMARATE 80/4.5 mcg INHALER IH SCH ×2 (10:19→21:35)
--- NOTE | 2019-10-16 10:59 | PN ---
Progress Note (short form) - Note Progress Note: s: no chest pain, palps, dizziness, dyspnea. feels congested. Current Medications Generic Name Dose Route Start Last Admin Trade Name Freq PRN Reason Stop Dose Admin Acetaminophen 650 mg 10/10/19 15:03 Tylenol - PO Q6H PRN FEVER Albuterol Sulfate 1 amp 10/10/19 15:03 10/12/19 11:40 Ventolin 0.083% Nebulizer Soln - NEB 1 amp Q4H PRN Administration SHORT OF BREATH/WHEEZING Budesonide/Formoterol Fumarate 2 puff 10/10/19 10:00 10/16/19 10:19 Symbicort 80/4.5mcg - IH 2 puff BID [facility] Administration Buspirone HCl 5 mg 10/11/19 13:45 10/16/19 10:17 Buspar - PO 5 mg BID [facility] Administration Carvedilol 6.25 mg 10/11/19 13:45 10/16/19 10:18 Coreg - PO Not Given BID [facility] Cefuroxime Axetil 500 mg 10/15/19 12:30 10/16/19 10:18 Ceftin - PO 500 mg BID [facility] Administration Famotidine 20 mg 10/10/19 10:00 10/16/19 10:18 Pepcid - PO 20 mg DAILY [facility] Administration Insulin Aspart 1 vial 10/14/19 21:57 10/16/19 06:50 Novolog Vial Sliding Scale - SQ 8 units ACHS [facility] Administration Protocol Insulin Detemir 10 units 10/14/19 07:50 10/15/19 22:09 Levemir Vial SQ 10 units HS [facility] Administration Ipratropium [place] 1 amp 10/11/19 20:00 10/16/19 08:16 Atrovent 0.02% Nebulizer - NEB 1 amp RBID [facility] Administration Isosorbide Dinitrate 20 mg 10/11/19 18:00 10/16/19 10:18 Isordil - PO Not Given BIDISORDIL [facility] Levothyroxine Sodium 125 mcg 10/10/19 07:00 10/16/19 06:51 Synthroid - PO 125 mcg DAILY@0700 [facility] Administration Lorazepam 2 mg 10/11/19 22:00 10/15/19 22:08 Ativan - PO 2 mg HS [facility] Administration Melatonin 10 mg 10/10/19 22:00 10/15/19 22:09 Melatonin PO 10 mg HS [facility] Administration Prednisone 20 mg 10/15/19 12:45 10/16/19 10:17 Deltasone - PO 20 mg BID [facility] Administration Pregabalin 75 mg 10/15/19 10:00 10/16/19 10:18 Lyrica - PO 75 mg DAILY [facility] Administration Vital Signs Period Temp Pulse Resp BP Sys/Palacios Pulse Ox Last 24 Hr 97.3 F-98 F 58-74 20-20 112-127/57-74 98-99 nad no jvd rrr s1s2 no mrg scattered rhonchi bl, nl eff awake alert no jaundice diaphoresis abd nt nd pos bs no jaundice diaphoresis CBC, BMP 10/13/19 06:56 10/14/19 06:13 echo 09/2019: lve, lvef 20-25%, global hk, lae, nl rv, mod mr, mod tr, mild ar , rvsp 40-50 09/19/2019 [employer] interrogated, 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 08/2019 10 beat run of NSVT self- terminated w/o therapy. 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 pna: -abx per ID htn: -resumed home coreg and imdur, bp controlled acute systolic chf, biv icd: -lvef severely reduced (?ischemic vs nicm, recently came from [place]) -has biv icd placed 2013, nl fcn when checked here last month -evidence of some vol overload with bl pleural effs, cont HD per renal for vol management - losartan, furosemide, hydralazine held in setting of low bp - coreg and imdur resumed, monitor bp esrd: -cont hd per renal elevated trops: -borderline trop elevation with flat trend and nl ck, similar to prior baseline values, not c/w acs
[2019-10-16 11:19] LABS: HEMATOCRIT 33.3 % (35.4-49); HEMOGLOBIN 10.7 GM/dL (11.7-16.9); MCH 29.9 pg (25.7-33.7); MCHC 32.3 g/dl (32.0-35.9); MEAN CELL VOLUME 92.8 fl (80-96); MEAN PLT VOLUME 8.1 fl (7.5-11.1); PLATELET COUNT 118 K/MM3 (134-434); RBC 3.59 M/mm3 (4.00-5.60); RDW 14.8 % (11.9-15.9); WHITE BLOOD COUNT 5.6 K/mm3 (4.0-10.0)
--- NOTE | 2019-10-16 11:25 | PN ---
Progress Note (short form) - Note Progress Note: PULMONARY Currently on HD. States breathing is better. No fevers recorded. Vital Signs Period Temp Pulse Resp BP Sys/Palacios Pulse Ox Last 24 Hr 97.3 F-98 F 58-74 20-20 112-127/57-74 98 Gen: NAD at rest Heart: RRR Lung: decreased breath sounds at the bases Abd: soft, nontender Ext: no edema CBC, BMP 10/16/19 10:45 Active Medications Acetaminophen (Tylenol -) 650 mg PO Q6H PRN PRN Reason: FEVER Albuterol Sulfate (Ventolin 0.083% Nebulizer Soln -) 1 amp NEB Q4H PRN PRN Reason: SHORT OF BREATH/WHEEZING Last Admin: 10/12/19 11:40 Dose: 1 amp Budesonide/Formoterol Fumarate (Symbicort 80/4.5mcg -) 2 puff IH BID [facility] Last Admin: 10/16/19 10:19 Dose: 2 puff Buspirone HCl (Buspar -) 5 mg PO BID [facility] Last Admin: 10/16/19 10:17 Dose: 5 mg Carvedilol (Coreg -) 6.25 mg PO BID [facility] Last Admin: 10/16/19 10:18 Dose: Not Given Cefuroxime Axetil (Ceftin -) 500 mg PO BID [facility] Last Admin: 10/16/19 10:18 Dose: 500 mg Famotidine (Pepcid -) 20 mg PO DAILY [facility] Last Admin: 10/16/19 10:18 Dose: 20 mg Insulin Aspart (Novolog Vial Sliding Scale -) 1 vial SQ [facility]; Protocol Last Admin: 10/16/19 06:50 Dose: 8 units Insulin Detemir (Levemir Vial) 10 units SQ HS [facility] Last Admin: 10/15/19 22:09 Dose: 10 units Ipratropium [place] (Atrovent 0.02% Nebulizer -) 1 amp NEB RBID [facility] Last Admin: 10/16/19 08:16 Dose: 1 amp Isosorbide Dinitrate (Isordil -) 20 mg PO BIDISORDIL [facility] Last Admin: 10/16/19 10:18 Dose: Not Given Levothyroxine Sodium (Synthroid -) 125 mcg PO DAILY@0700 [facility] Last Admin: 10/16/19 06:51 Dose: 125 mcg Lorazepam (Ativan -) 2 mg PO HS [facility] Last Admin: 10/15/19 22:08 Dose: 2 mg Melatonin (Melatonin) 10 mg PO HS [facility] Last Admin: 10/15/19 22:09 Dose: 10 mg Prednisone (Deltasone -) 20 mg PO BID [facility] Last Admin: 10/16/19 10:17 Dose: 20 mg Pregabalin (Lyrica -) 75 mg PO DAILY [facility] Last Admin: 10/16/19 10:18 Dose: 75 mg A/P Acute on Chronic Systolic Heart Failure Volume Overload Pleural Effusions Pneumonia ESRD on HD Pancytopenia CAD HTN DM Hyperlipidemia Hypothyroidism - continue antibiotics - HD per renal - O2 to keep SpO2 >90% - taper off prednisone - inhaled bronchodilators as needed - DVT prophylaxis
[2019-10-16 11:35] LABS: CALCIUM 7.4 mg/dL (8.5-10.1); CREATININE 6.2 mg/dL (0.55-1.3); POTASSIUM 4.3 mmol/L (3.5-5.1)
[2019-10-16 11:47] LABS: BLOOD UREA NITROGEN 109.3 mg/dL (7-18)
[2019-10-16] MEDS: ALBUTEROL SO4 2.5/IPRATROPIUM 0.5 INH SOL 3 ML VIAL.NEB. NEB SCH ×3 (12:12→21:41)
[2019-10-16 12:18] VITALS: BMI 25.3
--- NOTE | 2019-10-16 13:35 | PN ---
Progress Note (short form) - Note Progress Note: Hospitalist Medicine still c/o SOB, however improved. For HD today. Awaiting pre and post Vitals 10/16/19 11:45 Pulse Rate 77 Respiratory 18 Rate Blood Pressure 130/85 Physical Exam general: pleasant, in NAD heent: NCAT, PERRLA neck: supple, without jvd cardio: S1, S2 RRR. no r/m/g pulm: +decreased breath sounds. few crackles abdomen: nontender, nondistended LE: 1+ pulses dp. no edema. +wrapped R foot Laboratory Tests 10/16/19 10/16/19 10:45 10:45 WBC 5.6 Hgb 10.7 L Hct 33.3 L Plt Count 118 L Sodium 133 L Potassium 4.3 Chloride 97 L Carbon Dioxide 24 Anion Gap 12 BUN 109.3 H* Creatinine 6.2 H Random Glucose 294 H Calcium 7.4 L Microbiology 10/11/19 20:00 Sputum - Expectorated Gram Stain - Final 10/11/19 14:00 Stool Gram Stain - Final 10/11/19 14:00 Stool Escherichia coli 0157 Culture - Final NO GROWTH OF VIBRIO SPECIES OBTAINED NO GROWTH OF E COLI 0157 OBTAINED 10/11/19 14:00 Stool Clostridioides difficile Antigen - Final 10/11/19 14:00 Stool Clostridioides difficile Toxin Assay - Final 10/10/19 00:05 Urine - Urine Clean Catch Urine Culture - Final NO GROWTH OBTAINED 10/09/19 14:50 Urine For Antigen Detection Legionella Antigen - Final 10/09/19 14:50 Urine For Antigen Detection Streptococcus pneumoniae Antigen (M - Final 10/11/19 20:00 Sputum - Expectorated Sputum Culture - Preliminary NORMAL RESPIRATORY DONI 10/11/19 14:00 Stool Yersinia Culture - Preliminary NO ENTERIC PATHOGENS, 24 HOURS, ON PRIMARY PLATES NO ENTERIC PATHOGENS, 24 HOURS, ON PRIMARY PLATES 10/09/19 14:00 Blood - Peripheral Venous Blood Culture - Preliminary NO GROWTH OBTAINED AFTER 72 HOURS, INCUBATION TO CONTINUE FOR 2 DAYS. 10/09/19 14:00 Blood - Peripheral Venous Blood Culture - Preliminary NO GROWTH OBTAINED AFTER 72 HOURS, INCUBATION TO CONTINUE FOR 2 DAYS. Imaging 10/09/19: EKG: atrial sensed vent paced rhythm. qtc 480ms 10/09/19: CXR: large heart, unfolded aorta, R jugular line with tip in RA, double lead PPM. unfolded aorta, blurring of the hilar and congestive changes with base infiltrate with atelectasis and/or fluid. there is some atelectasis or infiltrate at the right base 10/09/19: chest CT, CTAP: lingular infiltrate, moderate bilateral pleural effusions and resultant bibasilar compressive atelectasis. these have increase mildly in size compared to 09/08/2019. bilateral flank subcutaneous edema. cardiomegaly. transvenous PPM. R internal jugular venous cath in place with cath tip at the superior cavoatrial junction. s/p jody. small amount of fluid in abdomen and pelvis mildly increased. colonic diverticulosis. possible bilateral nonobstructing renal calculi vs. atherosclerotic vascular calcifications. 10/10/19: ECHO: LV mildly dilated, severe global hypokinesis of LV. EF 20-25%. LVSF severelreduced. ppm lead in RV. LA desiree dilated, moderate MR, moderate TR. RVSP elevated at 40-50 mmHg. mild aortic sclerosis, mild AR, mildly dilated IVC. 10/10/19: R foot XR: no sign of fracture or subluxation, no sign of blastic or lytic changes. no calcaneal spurring, no swelling no foreign body. 10/11/19: CXR: persistence of lingula PNA with persistent infiltrate, some improvement in aeration. persistence of L pleural effusion suspected. Assessment/Plan 69 y/o M with PMH SC, ESRD on dialysis (//Sun), HLD, hypothyroidism, DM, former alcoholic until jun 2019, recent admission for RLE wound, as well as cholecystectomy (09/17/19) presenting to ED from [place] for fever, diarrhea, cough and SOB. #Fever 2/2 possible HAP -w/ evidence of infiltrate on CT scan, SOB, hypoxia -finished zosyn; changed to PO ceftin 500mg x 5 days (Day 2/5) -blood, ucx, (-) thus far -prednisone 40mg; to send on taper -tylenol PRN for pain/fever -ID: Dr. Keith -Pulm: Dr. Shanks -Sx: Dr. Avila #SOB 2/2 PNA, CHF, vs. vol overload (HD) -c/w symbicort [facility], ventolin PRN -on prednisone taper 40mg (Day 1) # R heel ulcer -wound care f/u -started on lyrica -vasc consulted: Dr. Fitzgerald #CAD, hx SC -c/w imdur #thrombocytopenia -likely 2/2 infection -c/t monitor -f/u HIT panel #acute on chronic systolic CHF -severely reduced LVEF -has vol overload, however may also be from need to be dialyzed -hold losartan -coreg has been restarted -daily wt, strict i/o, na control 2g -Cardio: Dr. Snow #ESRD -HD per nephro -nephro: Dr. Dubose #DM2 -c/w ISS, BGM ACHS -on levemir 10u (was uptitrated) on steroids, will increase requirement as BG uncontrolled in hospital #F/E/N avoid IVF as HD patient continue to follow lytes renal diet #PPX DVT: hep 5k sq tid #Dispo monitoring on med-surg from [place] will need fistula as outpt steroid taper on d/c pre and post on d/c
[2019-10-16] MEDS ORDERED: LOSARTAN POTASSIUM 25 MG TABLET PO ONE (13:52)
--- NOTE | 2019-10-16 16:39 | PN ---
Progress Note, Physician History of Present Illness: Pt seen and examined at bedside. He tolerated HD. He feels that his breathing is improved. - Current Medication List Current Medications: Active Medications Acetaminophen (Tylenol -) 650 mg PO Q6H PRN PRN Reason: FEVER Albuterol Sulfate (Ventolin 0.083% Nebulizer Soln -) 1 amp NEB Q4H PRN PRN Reason: SHORT OF BREATH/WHEEZING Last Admin: 10/12/19 11:40 Dose: 1 amp Albuterol/Ipratropium (Duoneb -) 1 amp NEB RQID [facility] Last Admin: 10/16/19 16:03 Dose: 1 amp Budesonide/Formoterol Fumarate (Symbicort 80/4.5mcg -) 2 puff IH BID [facility] Last Admin: 10/16/19 10:19 Dose: 2 puff Buspirone HCl (Buspar -) 5 mg PO BID [facility] Last Admin: 10/16/19 10:17 Dose: 5 mg Carvedilol (Coreg -) 6.25 mg PO BID [facility] Last Admin: 10/16/19 10:18 Dose: Not Given Cefuroxime Axetil (Ceftin -) 500 mg PO BID [facility] Last Admin: 10/16/19 10:18 Dose: 500 mg Famotidine (Pepcid -) 20 mg PO DAILY [facility] Last Admin: 10/16/19 10:18 Dose: 20 mg Insulin Aspart (Novolog Vial Sliding Scale -) 1 vial SQ [facility]; Protocol Last Admin: 10/16/19 15:01 Dose: 6 units Insulin Detemir (Levemir Vial) 14 units SQ [facility] Isosorbide Dinitrate (Isordil -) 20 mg PO BIDISORDIL [facility] Last Admin: 10/16/19 10:18 Dose: Not Given Levothyroxine Sodium (Synthroid -) 125 mcg PO DAILY@0700 [facility] Last Admin: 10/16/19 06:51 Dose: 125 mcg Lorazepam (Ativan -) 2 mg PO [facility] Last Admin: 10/15/19 22:08 Dose: 2 mg Melatonin (Melatonin) 10 mg PO [facility] Last Admin: 10/15/19 22:09 Dose: 10 mg Prednisone (Deltasone -) 40 mg PO DAILY [facility] Pregabalin (Lyrica -) 75 mg PO DAILY [facility] Last Admin: 10/16/19 10:18 Dose: 75 mg - Objective Vital Signs: Vital Signs Temperature 98.3 F 10/16/19 14:54 Pulse Rate 67 10/16/19 16:27 Respiratory Rate 20 10/16/19 14:54 Blood Pressure 128/71 10/16/19 14:54 O2 Sat by Pulse Oximetry (%) 98 10/16/19 16:27 Constitutional: Yes: Calm Eyes: Yes: Conjunctiva Clear HENT: Yes: Atraumatic Neck: Yes: Supple Cardiovascular: Yes: S1, S2 Respiratory: Yes: On Nasal O2 Gastrointestinal: Yes: Soft Genitourinary: Yes: WNL Musculoskeletal: Yes: WNL Edema: No Integumentary: Yes: Venous Stasis Changes Neurological: Yes: Oriented Psychiatric: Yes: Oriented Labs: CBC, BMP 10/16/19 10:45 10/16/19 10:45 INR, PTT INR 1.00 (0.83-1.09) 10/09/19 14:00 Problem List - Problems (1) Abdominal pain Code(s): R10.9 - UNSPECIFIED ABDOMINAL PAIN (2) Cardiomyopathy Code(s): I42.9 - CARDIOMYOPATHY, UNSPECIFIED Qualifiers: (3) ESRD (end stage renal disease) Code(s): N18.6 - END STAGE RENAL DISEASE (4) HTN (hypertension) Code(s): I10 - ESSENTIAL (PRIMARY) HYPERTENSION Qualifiers: Assessment/Plan Current Medications Generic Name Dose Route Start Last Admin Trade Name Freq PRN Reason Stop Dose Admin Acetaminophen 650 mg 10/10/19 15:03 Tylenol - PO Q6H PRN FEVER Albuterol Sulfate 1 amp 10/10/19 15:03 10/12/19 11:40 Ventolin 0.083% Nebulizer Soln - NEB 1 amp Q4H PRN Administration SHORT OF BREATH/WHEEZING Albuterol/Ipratropium 1 amp 10/16/19 12:00 10/16/19 16:03 Duoneb - NEB 1 amp RQID [facility] Administration Budesonide/Formoterol Fumarate 2 puff 10/10/19 10:00 10/16/19 10:19 Symbicort 80/4.5mcg - IH 2 puff BID [facility] Administration Buspirone HCl 5 mg 10/11/19 13:45 10/16/19 10:17 Buspar - PO 5 mg BID [facility] Administration Carvedilol 6.25 mg 10/11/19 13:45 10/16/19 10:18 Coreg - PO Not Given BID [facility] Cefuroxime Axetil 500 mg 10/15/19 12:30 10/16/19 10:18 Ceftin - PO 500 mg BID [facility] Administration Famotidine 20 mg 10/10/19 10:00 10/16/19 10:18 Pepcid - PO 20 mg DAILY [facility] Administration Insulin Aspart 1 vial 10/14/19 21:57 10/16/19 15:01 Novolog Vial Sliding Scale - SQ 6 units ACHS [facility] Administration Protocol Insulin Detemir 14 units 10/16/19 22:00 Levemir Vial SQ HS [facility] Isosorbide Dinitrate 20 mg 10/11/19 18:00 10/16/19 10:18 Isordil - PO Not Given BIDISORDIL [facility] Levothyroxine Sodium 125 mcg 10/10/19 07:00 10/16/19 06:51 Synthroid - PO 125 mcg DAILY@0700 [facility] Administration Lorazepam 2 mg 10/11/19 22:00 10/15/19 22:08 Ativan - PO 2 mg HS [facility] Administration Melatonin 10 mg 10/10/19 22:00 10/15/19 22:09 Melatonin PO 10 mg HS [facility] Administration Prednisone 40 mg 10/17/19 10:00 Deltasone - PO DAILY [facility] Pregabalin 75 mg 10/15/19 10:00 10/16/19 10:18 Lyrica - PO 75 mg DAILY [facility] Administration Impression 1. ESRD 2. HTN 3. cellulitis 4. DM 5. hypothyroidism 6. pleural effusion Plan - HD today - renal diet - volume status improved - taper steroids as tolerated - restrict fluid intake
[2019-10-16] MEDS: LORazepam 1 MG TABLET PO SCH (21:33)
[2019-10-16] MEDS: MELATONIN 5 MG TABLETS PO SCH (21:33)
[2019-10-16] MEDS ORDERED: INSULIN (LEVEMIR) 100 UNITS/ML UNITS SQ SCH (22:00)
[2019-10-17] MEDS: INSULIN SLIDING SCALE (NOVOLOG) 1 VIAL SQ SCH ×2 (06:52→11:57)
[2019-10-17] MEDS: LEVOTHYROXINE NA 125 MCG TABLET (FP) PO SCH (06:52)
[2019-10-17] MEDS ORDERED: INSULIN (NOVOLOG) ASPART 100 UNITS/ML 10ML VIAL ONE ×2 (06:59→11:11)
[2019-10-17] MEDS: ALBUTEROL SO4 2.5/IPRATROPIUM 0.5 INH SOL 3 ML VIAL.NEB. NEB SCH (08:04)
--- NOTE | 2019-10-17 08:19 | PN ---
Teaching Attending Note Name of Resident: Tracey King ATTENDING PHYSICIAN STATEMENT I saw and evaluated the patient. I reviewed the resident's note and discussed the case with the resident. I agree with the resident's findings and plan as documented. SUBJECTIVE: Patient complaint of shortness of breath OBJECTIVE: Vital Signs Temperature 97.9 F 10/17/19 07:26 Pulse Rate 92 H 10/17/19 07:26 Respiratory Rate 20 10/17/19 07:26 Blood Pressure 121/65 10/17/19 07:26 O2 Sat by Pulse Oximetry (%) 98 10/16/19 21:00 General: Elderly man sick looking, mild respiratory distress HEENT; mucous membranes moist, no anemia, no jaundice, PERRLA, no nystagmus Neck: No JVD, supple, no bruit, thyroid palpably normal, normal carotid pulsations. Chest: Nontender, bilateral basal rales. CVS: S1-S2 regular no murmur/gallop/rub Abdomen: Nondistended, soft, bowel sounds present. Extremities: bilateral edema., No cough tenderness, pulses present THAI MASSEUR: AO X3 , no gross motor sensory deficit CBC, BMP 10/16/19 10:45 10/16/19 10:45 Active Medications Acetaminophen (Tylenol -) 650 mg PO Q6H PRN PRN Reason: FEVER Albuterol Sulfate (Ventolin 0.083% Nebulizer Soln -) 1 amp NEB Q4H PRN PRN Reason: SHORT OF BREATH/WHEEZING Last Admin: 10/12/19 11:40 Dose: 1 amp Budesonide/Formoterol Fumarate (Symbicort 80/4.5mcg -) 2 puff IH BID [facility] Last Admin: 10/15/19 22:11 Dose: 2 puff Buspirone HCl (Buspar -) 5 mg PO BID [facility] Last Admin: 10/15/19 22:09 Dose: 5 mg Carvedilol (Coreg -) 6.25 mg PO BID [facility] Last Admin: 10/15/19 22:09 Dose: 6.25 mg Cefuroxime Axetil (Ceftin -) 500 mg PO BID [facility] Last Admin: 10/15/19 22:08 Dose: 500 mg Epoetin Yuan (Epogen -) 2,000 unit IVPUSH ONCE ONE Stop: 10/16/19 18:25 Famotidine (Pepcid -) 20 mg PO DAILY [facility] Last Admin: 10/15/19 11:05 Dose: 20 mg Heparin Sodium (Porcine) (Heparin -) 500 unit IVPUSH ONCE ONE Stop: 10/16/19 18:25 Sodium Chloride (Normal Saline -) 250 mls @ 3,000 mls/hr IV PRN PRN PRN Reason: Hypotension during Dialysis Stop: 10/16/19 18:24 Insulin Aspart (Novolog Vial Sliding Scale -) 1 vial SQ [facility]; Protocol Last Admin: 10/16/19 06:50 Dose: 8 units Insulin Detemir (Levemir Vial) 10 units SQ [facility] Last Admin: 10/15/19 22:09 Dose: 10 units Ipratropium [place] (Atrovent 0.02% Nebulizer -) 1 amp NEB RBID [facility] Last Admin: 10/16/19 08:16 Dose: 1 amp Isosorbide Dinitrate (Isordil -) 20 mg PO BIDISORDIL [facility] Last Admin: 10/15/19 18:12 Dose: 20 mg Levothyroxine Sodium (Synthroid -) 125 mcg PO DAILY@0700 [facility] Last Admin: 10/16/19 06:51 Dose: 125 mcg Lorazepam (Ativan -) 2 mg PO [facility] Last Admin: 10/15/19 22:08 Dose: 2 mg Melatonin (Melatonin) 10 mg PO [facility] Last Admin: 10/15/19 22:09 Dose: 10 mg Prednisone (Deltasone -) 20 mg PO BID [facility] Last Admin: 10/15/19 22:09 Dose: 20 mg Pregabalin (Lyrica -) 75 mg PO DAILY [facility] Last Admin: 10/15/19 10:52 Dose: 75 mg ASSESSMENT AND PLAN: 69 years old man from [place], recently came to [facility] compliance is questionable history of dementia, hypertension, type 2 diabetes mellitus, systolic heart failure last EF in August 2019 20 to 25% global hypokinesis, status post DIRECTOR OF ACCREDITATION done in 2013 ischemic/nonischemic cardiomyopathy, CKD stage V on hemodialysis via permacath, COPD presents with decompensated heart failure with pneumonia, evaluated by cardiology, infectious disease, nephrology, patient is due for hemodialysis. Problem List - Problems (1) Acute decompensated heart failure Assessment/Plan: Patient is a known case of systolic heart failure with reduced ejection fraction , status post DIRECTOR OF ACCREDITATION, recently interrogated a short run of NSVT, needs optimization of fluid management via hemodialysis and continue current medications on Coreg, losartan need to be resumed. Follow-up cardiology recommendations Code(s): I50.9 - HEART FAILURE, UNSPECIFIED (2) COPD (chronic obstructive pulmonary disease) Assessment/Plan: COPD exacerbation evaluated by cardiology continue current bronchodilators. Code(s): J44.9 - CHRONIC OBSTRUCTIVE PULMONARY DISEASE, UNSPECIFIED (3) Pneumonia Assessment/Plan: Switch to p.o. antibiotic remained afebrile Code(s): J18.9 - PNEUMONIA, UNSPECIFIED ORGANISM (4) ESRD (end stage renal disease) Assessment/Plan: On hemodialysis needs a vein mapping Code(s): N18.6 - END STAGE RENAL DISEASE (5) Heel ulcer Assessment/Plan: Follow-up podiatry/wound care recommendations Problems reviewed: Yes Code(s): L97.409 - NON-PRS CHRONIC ULCER OF UNSP HEEL AND MIDFOOT W UNSP SEVERT (6) Diabetes Assessment/Plan: Needs optimization of glycemic control Code(s): E11.9 - TYPE 2 DIABETES MELLITUS WITHOUT COMPLICATIONS Qualifiers: Diabetes mellitus type: type 2 Chronic kidney disease stage: on chronic dialysis (7) Hypothyroid Assessment/Plan: Continue levothyroxine Code(s): E03.9 - HYPOTHYROIDISM, UNSPECIFIED Qualifiers: Hypothyroidism type: unspecified Qualified Code(s): E03.9 - Hypothyroidism , unspecified
[2019-10-17 09:15] LABS: BLOOD UREA NITROGEN 71.6 mg/dL (7-18); CALCIUM 7.4 mg/dL (8.5-10.1); CREATININE 4.1 mg/dL (0.55-1.3); MAGNESIUM 2.2 mg/dL (1.8-2.4); PHOSPHOROUS 4.7 mg/dL (2.5-4.9); POTASSIUM 3.6 mmol/L (3.5-5.1)
[2019-10-17 09:32] VITALS: BP 113/44; PULSE 64; TEMP 97.7
[2019-10-17] MEDS ORDERED: predniSONE 20 MG TABLET (UD) PO SCH (10:00)
--- NOTE | 2019-10-17 10:39 | PN ---
Progress Note (short form) - Note Progress Note: s: no chest pain, palps, dizziness, dyspnea. Current Medications Generic Name Dose Route Start Last Admin Trade Name Freq PRN Reason Stop Dose Admin Acetaminophen 650 mg 10/10/19 15:03 Tylenol - PO Q6H PRN FEVER Albuterol Sulfate 1 amp 10/10/19 15:03 10/12/19 11:40 Ventolin 0.083% Nebulizer Soln - NEB 1 amp Q4H PRN Administration SHORT OF BREATH/WHEEZING Albuterol/Ipratropium 1 amp 10/16/19 12:00 10/17/19 08:04 Duoneb - NEB 1 amp RQID [facility] Administration Budesonide/Formoterol Fumarate 2 puff 10/10/19 10:00 10/16/19 21:35 Symbicort 80/4.5mcg - IH 2 puff BID [facility] Administration Buspirone HCl 5 mg 10/11/19 13:45 10/16/19 21:37 Buspar - PO 5 mg BID [facility] Administration Carvedilol 6.25 mg 10/11/19 13:45 10/16/19 21:33 Coreg - PO 6.25 mg BID [facility] Administration Cefuroxime Axetil 500 mg 10/15/19 12:30 10/16/19 21:33 Ceftin - PO 500 mg BID [facility] Administration Famotidine 20 mg 10/10/19 10:00 10/16/19 10:18 Pepcid - PO 20 mg DAILY [facility] Administration Insulin Aspart 1 vial 10/14/19 21:57 10/17/19 06:52 Novolog Vial Sliding Scale - SQ 6 units ACHS [facility] Administration Protocol Insulin Detemir 14 units 10/16/19 22:00 10/16/19 21:34 Levemir Vial SQ 14 unit HS [facility] Administration Isosorbide Dinitrate 20 mg 10/11/19 18:00 10/16/19 18:02 Isordil - PO 20 mg BIDISORDIL [facility] Administration Levothyroxine Sodium 125 mcg 10/10/19 07:00 10/17/19 06:52 Synthroid - PO 125 mcg DAILY@0700 [facility] Administration Lorazepam 2 mg 10/11/19 22:00 10/16/19 21:33 Ativan - PO 2 mg HS [facility] Administration Melatonin 10 mg 10/10/19 22:00 10/16/19 21:33 Melatonin PO 10 mg HS [facility] Administration Prednisone 40 mg 10/17/19 10:00 Deltasone - PO DAILY [facility] Pregabalin 75 mg 10/15/19 10:00 10/16/19 10:18 Lyrica - PO 75 mg DAILY [facility] Administration Vital Signs Period Temp Pulse Resp BP Sys/Palacios Pulse Ox Last 24 Hr 97.7 F-98.6 F 60-93 18-20 112-137/44-85 98-99 nad no jvd rrr s1s2 no mrg scattered rhonchi bl, nl eff awake alert no jaundice diaphoresis abd nt nd pos bs no jaundice diaphoresis CBC, BMP 10/13/19 06:56 10/14/19 06:13 echo 09/2019: lve, lvef 20-25%, global hk, lae, nl rv, mod mr, mod tr, mild ar , rvsp 40-50 09/19/2019 [employer]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 08/2019 10 beat run of NSVT self- terminated w/o therapy. 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 pna: -abx per ID htn: -resumed home coreg and imdur, bp controlled acute systolic chf, biv icd: -lvef severely reduced (?ischemic vs nicm, recently came from [place]) -has biv icd placed 2013, nl fcn when checked here last month -evidence of some vol overload with bl pleural effs, cont HD per renal for vol management - losartan, furosemide, hydralazine held in setting of low bp - coreg and imdur resumed, monitor bp esrd: -cont hd per renal elevated trops: -borderline trop elevation with flat trend and nl ck, similar to prior baseline values, not c/w acs
[2019-10-17] MEDS ORDERED: PT OWN MED DRAWER 7, Y5N ONE (11:04)
[2019-10-17] MEDS: busPIRone HCL 5 MG TABLET PO SCH (11:12)
[2019-10-17] MEDS: CARVEDILOL 6.25 MG TABLET (FP) PO SCH (11:12)
[2019-10-17] MEDS: PREGABALIN 75 MG CAPSULE PO SCH (11:12)
[2019-10-17] MEDS: CEFUROXIME AXETIL 500 MG TABLET PO SCH (11:12)
--- NOTE | 2019-10-17 11:12 | CONSULT ---
- Consultation REQUESTING PROVIDER: CONSULT REQUEST: We have been asked to surgically evaluate this patient for right heel ulcer. PCP:Harvinder Chiang MD HISTORY OF PRESENT ILLNESS: 69 yo male with a h/o DM, ERSD on HD, presented to the ER with complaints of abd pain and fever. While in the ER he was noted to have a fever to 101, the remainder of his hospital course he has been afebrile. He is s/p lap jody on 09/18. Complains of some mild epigastric pain tonight no nausea. Had a bm today. The patient feels weak and states that he gets a little dizzy when oob. No CP or SOB. He is able to get oob and ambulate but feels weakness. He is currently being treated for pneumonia and [facility]. PMHx: HTN, DM, chf, ESRD PSHx: lap jody 09/18, s/p permacath Home Medications Medication Instructions Recorded Acetaminophen [Tylenol .Regular 650 mg PO Q6H PRN tablet 09/27/19 Strength -] Carvedilol [Coreg -] 6.25 mg PO BID tablet 09/27/19 Donepezil HCl [Aricept -] 10 mg PO DAILY tablet 09/27/19 Isosorbide Dinitrate [Isordil] 20 mg PO BIDISORDIL tablet 09/27/19 Levothyroxine [Synthroid -] 125 mcg PO DAILY@0700 tablet 09/27/19 Losartan Potassium [Cozaar -] 50 mg PO DAILY tablet 09/27/19 Melatonin 10 mg PO HS tab 09/27/19 hydrALAZINE HCL [Apresoline -] 25 mg PO BID tablet 09/27/19 Albuterol 0.083% Nebulizer Brigid 1 neb NEB Q6H PRN 10/09/19 [Ventolin 0.083% Nebulizer Soln -] Ampicillin Sodium/Sulbactam Na 1.5 gm IV Q6H 10/09/19 [Unasyn 1.5 gm Vial] Buspirone HCl [Buspar -] 5 mg PO BID 10/09/19 Famotidine 20 mg PO BID 10/09/19 Furosemide [Lasix] 40 mg PO DAILY 10/09/19 Insulin Glargine,Hum.rec.anlog 6 unit SQ HS 10/09/19 [Basaglar Kwikpen U-100] Insulin Sliding Scale [Novolog 0 vial SQ ACHS 10/09/19 Vial Sliding Scale -] Ipratropium 0.02% Nebulizer 1 neb NEB BID 10/09/19 [Atrovent] LORazepam [Ativan] 2 mg PO HS 10/09/19 Loperamide HCl [Loperamide] 2 mg PO Q4H PRN 10/09/19 Nitroglycerin Sublingual 0.4 mg SL ONCE PRN 10/09/19 [Nitrostat -] metroNIDAZOLE [Flagyl -] 500 mg PO TID 10/09/19 Allergies Allergy/AdvReac Type Severity Reaction Status Date / Time No Known Allergies Allergy Verified 10/09/19 13:17 REVIEW OF SYSTEMS: unable to obtain, pt lethargic PHYSICAL EXAM: GENERAL: Arousable but lethargic HEAD: Normal with no signs of trauma. LUNGS: Clear to auscultation bilat anteriorly. HEART: Regular rate and rhythm. No murmurs ABDOMEN: Soft, mild epigastric pain LOWER EXTREMITIES: 2+ DP/PT pulses wit doppler, warm, well-perfused. No calf tenderness. No peripheral edema. B/l feet with dry skin. Right heel with 3x2 cm eschar, no erythema or drainage noted, no bogginess or tenderness to palpation. NEUROLOGICAL: Normal speech, gait not observed. PSYCH: Cooperative. Good eye contact. Appropriate mood and affect. Vital Signs Temperature 97.7 F 10/17/19 09:31 Pulse Rate 64 10/17/19 09:31 Respiratory Rate 20 10/17/19 09:31 Blood Pressure 113/44 L 10/17/19 09:31 O2 Sat by Pulse Oximetry (%) 98 10/16/19 21:00 Lab Results WBC 5.6 K/mm3 (4.0-10.0) 10/16/19 10:45 RBC 3.59 M/mm3 (4.00-5.60) L 10/16/19 10:45 Hgb 10.7 GM/dL (11.7-16.9) L 10/16/19 10:45 Hct 33.3 % (35.4-49) L 10/16/19 10:45 MCV 92.8 fl (80-96) 10/16/19 10:45 MCHC 32.3 g/dl (32.0-35.9) 10/16/19 10:45 RDW 14.8 % (11.9-15.9) 10/16/19 10:45 Plt Count 118 K/MM3 (134-434) L 10/16/19 10:45 Sodium 140 mmol/L (136-145) 10/17/19 07:05 Potassium 3.6 mmol/L (3.5-5.1) 10/17/19 07:05 Chloride 103 mmol/L (98-107) 10/17/19 07:05 Carbon Dioxide 27 mmol/L (21-32) 10/17/19 07:05 Anion Gap 10 MMOL/L (8-16) 10/17/19 07:05 BUN 71.6 mg/dL (7-18) H 10/17/19 07:05 Creatinine 4.1 mg/dL (0.55-1.3) H 10/17/19 07:05 Random Glucose 210 mg/dL (74-106) H 10/17/19 07:05 Calcium 7.4 mg/dL (8.5-10.1) L 10/17/19 07:05 INR 1.00 (0.83-1.09) 10/09/19 14:00 foot xray: No calcaneal spurring or destructive changes. No soft tissue swelling. Problem List - Problems (1) Heel ulcer Assessment/Plan: Right heel ulcer no evidence of infection Recommend bacitracin to right heel ulcer with off loading(heel protectors) when not oob to chair Recommend PT f/u with Dr. Fitzgerald in the office in 1 to 2 weeks, He has a scheduled appointment on Sunday but if going to rehab will most likely not be able to make his appointment. f/u with Dr. Fitzgerald in the office in 1 to 2 weeks. Code(s): L97.409 - NON-PRS CHRONIC ULCER OF UNSP HEEL AND MIDFOOT W UNSP SEVERT Qualifiers: Laterality: right
[2019-10-17] MEDS: ISOSORBIDE DINITRATE 20 MG TABLET (FP) PO SCH (11:14)
[2019-10-17] MEDS: FAMOTIDINE 20 MG TABLET PO SCH (11:14)
[2019-10-17] MEDS ORDERED: BACITRACIN 15 GM TUBE TOPICAL OINTMENT TP SCH (11:15)
[2019-10-17] MEDS: BUDESONIDE/FORMETEROL FUMARATE 80/4.5 mcg INHALER IH SCH (11:16)
--- NOTE | 2019-10-17 15:45 | PN ---
Physical Exam: SUBJECTIVE: Patient seen and examined no acute events over night sill with sob but improved OBJECTIVE: Vital Signs Period Temp Pulse Resp BP Sys/Palacios Pulse Ox Last 24 Hr 97.7 F-98.6 F 64-93 20-20 113-136/44-70 94-98 general: pleasant, in NAD heent: NCAT, PERRLA neck: supple, without jvd cardio: S1, S2 RRR. no r/m/g pulm: +decreased breath sounds. few crackles abdomen: nontender, nondistended LE: 1+ pulses dp. no edema. +wrapped R foot Laboratory Results - last 24 hr 10/16/19 10/16/19 10/17/19 17:21 21:15 05:48 Sodium Potassium Chloride Carbon Dioxide Anion Gap BUN Creatinine Est GFR (CKD-EPI)AfAm Est GFR (CKD-EPI)NonAf POC Glucometer 336 385 228 Random Glucose Calcium Phosphorus Magnesium 10/17/19 10/17/19 07:05 11:14 Sodium 140 Potassium 3.6 Chloride 103 Carbon Dioxide 27 Anion Gap 10 BUN 71.6 H Creatinine 4.1 H Est GFR (CKD-EPI)AfAm 15.98 Est GFR (CKD-EPI)NonAf 13.79 POC Glucometer 213 Random Glucose 210 H Calcium 7.4 L Phosphorus 4.7 Magnesium 2.2 CBC, BMP 10/16/19 10:45 10/17/19 07:05 ASSESSMENT/PLAN: 69 y/o patient with ESRD, Hep. C Acute on Chronic Systolic Heart Failure Volume Overload Pleural Effusions Pneumonia ESRD on HD Pancytopenia CAD HTN DM Hyperlipidemia Hypothyroidism suspect thrombocytopenia due to ongoing infection/passive congestion repeat cbc in one week close follow up out pt with heme Visit type - Emergency Visit Emergency Visit: Yes ED Registration Date: 10/09/19 Care time: The patient presented to the Emergency Department on the above date and was hospitalized for further evaluation of their emergent condition. - New Patient This patient is new to me today: Yes Date on this admission: 10/17/19 - Critical Care Critical Care patient: No - Discharge Referral Referred to [facility] Med P.C.: No ATTENDING PHYSICIAN STATEMENT I saw and evaluated the patient. I reviewed the resident's note and discussed the case with the resident. I agree with the resident's findings and plan as documented. SUBJECTIVE: OBJECTIVE: ASSESSMENT AND PLAN:
--- NOTE | 2019-10-17 18:21 | DS ---
Physical Exam: SUBJECTIVE: Patient seen and examined at bedside. Resting in bed, appears comfortable. Improved SOB. Plan d/w daughter, Starla over phone in detail. In agreement with plan. Pt will c/t use home 02 at [facility] OBJECTIVE: Vital Signs Period Temp Pulse Resp BP Sys/Palacios Pulse Ox Last 24 Hr 97.7 F-98.6 F 64-92 20-20 113-136/44-65 94-98 Physical Exam general: pleasant, in NAD heent: NCAT, PERRLA neck: supple, without jvd cardio: S1, S2 RRR. no r/m/g pulm: +decreased breath sounds. few crackles abdomen: nontender, nondistended LE: 1+ pulses dp. no edema. +wrapped R foot LABS Laboratory Results - last 24 hr 10/14/19 10/16/19 10/17/19 06:13 21:15 05:48 Sodium Potassium Chloride Carbon Dioxide Anion Gap BUN Creatinine Est GFR (CKD-EPI)AfAm Est GFR (CKD-EPI)NonAf POC Glucometer 385 228 Random Glucose Calcium Phosphorus Magnesium Heparin-Ind Plt Ab Scrn 0.279 10/17/19 10/17/19 07:05 11:14 Sodium 140 Potassium 3.6 Chloride 103 Carbon Dioxide 27 Anion Gap 10 BUN 71.6 H Creatinine 4.1 H Est GFR (CKD-EPI)AfAm 15.98 Est GFR (CKD-EPI)NonAf 13.79 POC Glucometer 213 Random Glucose 210 H Calcium 7.4 L Phosphorus 4.7 Magnesium 2.2 Heparin-Ind Plt Ab Scrn 10/09/19 10/10/19 10/11/19 14:00 09:15 06:35 WBC 4.9 3.0 L 2.9 L Hgb 11.7 11.4 L 10.5 L Hct 36.5 34.8 L 32.0 L Plt Count 113 L D 106 L 98 L 10/13/19 10/16/19 06:56 10:45 WBC 5.0 5.6 Hgb 10.4 L 10.7 L Hct 31.7 L 33.3 L Plt Count 100 L 118 L 10/09/19 14:00 PT with INR 11.80 INR 1.00 PTT (Actin FS) 31.1 10/16/19 10/17/19 10:45 07:05 Sodium 133 L 140 Potassium 4.3 3.6 Chloride 97 L 103 Carbon Dioxide 24 27 Anion Gap 12 BUN 109.3 H* 71.6 H Creatinine 6.2 H 4.1 H Est GFR (CKD-EPI)AfAm 15.98 Est GFR (CKD-EPI)NonAf 13.79 Random Glucose 294 H 210 H Calcium 7.4 L 7.4 L Phosphorus 4.7 Magnesium 2.2 10/10/19 00:05 Urine Protein 4+ H Urine Glucose (UA) 1+ H Urine Ketones Negative Urine Blood Negative Urine Nitrite Negative Urine Bilirubin Negative Urine Urobilinogen 1.0 Ur Leukocyte Esterase Negative Urine WBC (Auto) 7 Urine RBC (Auto) 1 Urine Casts (Auto) 12 U Epithel Cells (Auto) 3.8 Urine Bacteria (Auto) 4.6 10/09/19 10/09/19 10/11/19 14:00 19:15 14:00 Hep Bs Antigen Negative Hep C Ab Diagnostic >11.0 H HCV RNA PCR w/Genot Rflx [id number] HIV 1&2 Ag/Ab, 4th Gen Influenza A (Rapid) Negative Influenza B (Rapid) Negative O & P Permanent Slide Final report 10/11/19 14:56 Hep Bs Antigen Hep C Ab Diagnostic HCV RNA PCR w/Genot Rflx HIV 1&2 Ag/Ab, 4th Gen Non reactive Influenza A (Rapid) Influenza B (Rapid) O & P Permanent Slide Microbiology 10/11/19 20:00 Sputum - Expectorated Gram Stain - Final 10/11/19 14:00 Stool Gram Stain - Final 10/11/19 14:00 Stool Escherichia coli 0157 Culture - Final NO GROWTH OF VIBRIO SPECIES OBTAINED NO GROWTH OF E COLI 0157 OBTAINED 10/11/19 14:00 Stool Clostridioides difficile Antigen - Final 10/11/19 14:00 Stool Clostridioides difficile Toxin Assay - Final 10/10/19 00:05 Urine - Urine Clean Catch Urine Culture - Final NO GROWTH OBTAINED 10/09/19 14:50 Urine For Antigen Detection Legionella Antigen - Final 10/09/19 14:50 Urine For Antigen Detection Streptococcus pneumoniae Antigen (M - Final 10/11/19 20:00 Sputum - Expectorated Sputum Culture - Preliminary NORMAL RESPIRATORY DONI 10/11/19 14:00 Stool Yersinia Culture - Preliminary NO ENTERIC PATHOGENS, 24 HOURS, ON PRIMARY PLATES NO ENTERIC PATHOGENS, 24 HOURS, ON PRIMARY PLATES 10/09/19 14:00 Blood - Peripheral Venous Blood Culture - Preliminary NO GROWTH OBTAINED AFTER 72 HOURS, INCUBATION TO CONTINUE FOR 2 DAYS. 10/09/19 14:00 Blood - Peripheral Venous Blood Culture - Preliminary NO GROWTH OBTAINED AFTER 72 HOURS, INCUBATION TO CONTINUE FOR 2 DAYS. Imaging 10/09/19: EKG: atrial sensed vent paced rhythm. qtc 480ms 10/09/19: CXR: large heart, unfolded aorta, R jugular line with tip in RA, double lead PPM. unfolded aorta, blurring of the hilar and congestive changes with base infiltrate with atelectasis and/or fluid. there is some atelectasis or infiltrate at the right base 10/09/19: chest CT, CTAP: lingular infiltrate, moderate bilateral pleural effusions and resultant bibasilar compressive atelectasis. these have increase mildly in size compared to 09/08/2019. bilateral flank subcutaneous edema. cardiomegaly. transvenous PPM. R internal jugular venous cath in place with cath tip at the superior cavoatrial junction. s/p jody. small amount of fluid in abdomen and pelvis mildly increased. colonic diverticulosis. possible bilateral nonobstructing renal calculi vs. atherosclerotic vascular calcifications. 10/10/19: ECHO: LV mildly dilated, severe global hypokinesis of LV. EF 20-25%. LVSF severelreduced. ppm lead in RV. LA desiree dilated, moderate MR, moderate TR. RVSP elevated at 40-50 mmHg. mild aortic sclerosis, mild AR, mildly dilated IVC. 10/10/19: R foot XR: no sign of fracture or subluxation, no sign of blastic or lytic changes. no calcaneal spurring, no swelling no foreign body. 10/11/19: CXR: persistence of lingula PNA with persistent infiltrate, some improvement in aeration. persistence of L pleural effusion suspected. HOSPITAL COURSE: Date of Admission:10/09/19 Date of Discharge: 10/17/19 69 y/o M with PMH MD, ESRD on dialysis (//Sun), HLD, hypothyroidism, DM, former alcoholic until jun 2019, recent admission for RLE wound, as well as cholecystectomy (09/17/19) presenting to ED from [facility] for fever, diarrhea, cough and SOB. #Fever 2/2 possible HAP -w/ evidence of infiltrate on CT scan, SOB, hypoxia -finished zosyn; changed to PO ceftin 500mg x 5 days total course (2 days left in course) -blood, ucx, (-) thus far -sent back to facility on prednisone taper -tylenol PRN for pain/fever #SOB 2/2 PNA, CHF, vs. vol overload (HD) -c/w symbicort OSCAR, ventolin PRN -sent with prednisone taper # R heel ulcer -wound care f/u -started on lyrica . to continue, d/w daughter, may take time to improve, expressed verbal understanding -will follow vascular as outpt #CAD, hx MD -c/w imdur #thrombocytopenia -likely 2/2 infection -c/t monitor -f/u HIT panel #acute on chronic systolic CHF -severely reduced LVEF -has vol overload, however may also be from need to be dialyzed -hold losartan -coreg has been restarted -daily wt, strict i/o, na control 2g -Cardio: Dr. Snow #HTN -held losartan, lasix and hydralazine on d/c to avoid hypotension will need close f/u with outpt doctor -will c/w coreg on d/c (was on during hospitalization) #ESRD -HD per nephro #DM2 -c/w ISS, BGM ACHS -on levemir 10u (was uptitrated) #F/E/N avoid IVF as HD patient continue to follow lytes renal diet will need fistula as outpt steroid taper on d/c will c/w home 02 on d/c Minutes to complete discharge: 45 Discharge Summary Problems reviewed: Yes Reason For Visit: COMMUNITY ACQUIRED PNEUMONIA Condition: Improved - Instructions Diet, Activity, Other Instructions: You were in the hospital because you had shortness of breath. This likely occurred from pneumonia, as well as the need to have more fluid taken off your body during dialysis. You were seen in the hospital; dialyzed and seen by multiple medical teams. You were seen by the primary medical team, a lung doctor , kidney doctor, and the cardiology team. You were treated with IV antibiotics. You improved and are being sent back to your facility for continued rehabilitation. Medications Please continue to take the following medications at home: 1. Symbicort inhaler- 2 puffs, twice a day scheduled. (to help with breathing) 2. Ventolin/albuterol inhaler - 1 puff, every 4 hours as needed (to help with breathing) 3. Ceftin 500mg (1 pill), twice a day: for 2 more days (to complete treatment of your pneumonia) 4. Prednisone taper to help with with bronchodilation (opening airways): -Prednisone 40mg x 2 days , starting tomorrow (10/18-10/19) -Prednisone 30mg x 3 days (10/20-10/22) -Prednisone 20mg x 3 days (10/23-10/25) -Prednisone 10mg x 3 days (10/26-10/28) 5. Lyrica 75mg daily. This is for the shooting pains/ neuropathy in your feet ( especially near R heel). 6. your insulin requirement increased in the hospital. You are now requiring 10units of levemir instead of 6units. Continue with sliding scale. 7. NOTE: WE HAVE HELD YOUR LOSARTAN, FUROSEMIDE (LASIX) AND HYDRALAZINE DUE TO YOUR LOW BLOOD PRESSURE. CONTINUE TO HOLD THESE MEDS UPON YOUR RETURN TO THE FACILITY, BUT YOU MUST SEE A PRIMARY CARE DOCTOR OR PLASTICS FITTER IMMEDIATELY THIS WEEK TO FOLLOW THIS UP. While in the hospital, your coreg was continued, you can continue this make sure you are having frequent blood pressure checks at [facility]. Diet You are supposed to eat a renal, sodium controlled, LOW SUGAR diet that is FLUID restricted. You should not be having extra fluids at your facility. Your sodium intake should also be limited to 2grams daily. You should not be drinking sodas, or extra sugar as well due to your diabetes. These instructions must be followed by your facility and were discussed with your daughter. Care Continue to off load your Right heel. You will need continued wound care to the ulcer on the back of your Right heel. You will also need to follow with vascular/ wound care clinic upon your discharge as well as Dr. Renteria, podiatry. Avoid taking too much salt in your food. You should limit yourself to 2grams daily to prevent fluid retention. Weigh yourself daily. If you are gaining large amounts of weight, this may mean that your dialysis requirements may need to be changed. You are being sent to the facility with oxygen. Please titrate this to 02 sat> 90%. Follow with your pulmonary doctor. Follow up -You need to follow with a primary care physician to establish care- you can follow with Dr. Tse, at [facility] this week please also see: -Pulmonary doctor, Dr. Sanz this week -Renal (kidney) doctor, Dr. Dubose this week -Cardiology doctor, Dr. Day this week -Vascular doctor - Dr. Fitzgerald this week to look at your leg wound. You will also need a fistula done as an outpatient. -Investor Relations Director, Dr. Renteria - this week Referrals: Andrey Renteria MD [Staff Physician] - 1 Week Brant Sanz MD [Staff Physician] - 1 Week Delfino Fitzgerald DO [Staff Physician] - 1 Week Yao Tse MD [Staff Physician] - 1 Week Zac Dubose MD [Staff Physician] - 1 Week Henri Day MD [Staff Physician] - 1 Week Disposition: [facility] - Home Medications Comprehensive Discharge Medication List: Ambulatory Orders Carvedilol [Coreg -] 6.25 mg PO BID tablet 09/27/19 Donepezil HCl [Aricept -] 10 mg PO DAILY tablet 09/27/19 Isosorbide Dinitrate [Isordil] 20 mg PO BIDISORDIL tablet 09/27/19 Levothyroxine [Synthroid -] 125 mcg PO DAILY@0700 tablet 09/27/19 Melatonin 10 mg PO HS tab 09/27/19 Albuterol 0.083% Nebulizer Brigid [Ventolin 0.083% Nebulizer Soln -] 1 neb NEB Q6H PRN 10/09/19 Buspirone HCl [Buspar -] 5 mg PO BID 10/09/19 Famotidine 20 mg PO BID 10/09/19 Insulin Sliding Scale [Novolog Vial Sliding Scale -] 0 vial SQ ACHS 10/09/19 LORazepam [Ativan] 2 mg PO HS 10/09/19 Loperamide HCl [Loperamide] 2 mg PO Q4H PRN 10/09/19 Nitroglycerin Sublingual [Nitrostat -] 0.4 mg SL ONCE PRN 10/09/19 Acetaminophen [Tylenol .Regular Strength -] 650 mg PO Q6H PRN tablet 10/17/19 Budesonide/Formeterol Fumarate [SYMBICORT 80/4.5mcg -] 2 puff IH BID inhaler Cefuroxime Axetil [Ceftin -] 500 mg PO BID #4 tablet 10/17/19 Insulin (Levemir) [Levemir Vial] 10 units SQ HS units 10/17/19 Pregabalin [Lyrica -] 75 mg PO DAILY capsule MDD 75mg 10/17/19 predniSONE [Deltasone -] 10 mg PO ASDIR tablet 10/17/19 This patient is new to me today: No Emergency Visit: No Critical Care patient: No - Discharge Referral Referred to [facility] No
== END 2019-10-17 11:56 | DRG 291 ==
LOC: JER 13:04 → JERBED 17:56 → J5S 10-10 01:33
PROVIDERS: ADMIT Internal Medicine; ATTEND Internal Medicine
PROC: 5A1D70Z Performance of Urinary Filtration, Intermittent, Less than 6 Hours Per Day (ICD-10-PCS; principal; 2019-10-09)
DX: I13.2 Hypertensive heart and chronic kidney disease with heart failure and with stage 5 chronic kidney disease, or end stage renal disease (principal); N18.6 End stage renal disease; J18.9 Pneumonia, unspecified organism; I50.23 Acute on chronic systolic (congestive) heart failure; J96.20 Acute and chronic respiratory failure, unspecified whether with hypoxia or hypercapnia; E87.0 Hyperosmolality and hypernatremia; D61.818 Other pancytopenia; J98.11 Atelectasis; L97.419 Non-pressure chronic ulcer of right heel and midfoot with unspecified severity; E78.5 Hyperlipidemia, unspecified; I42.8 Other cardiomyopathies; I50.9 Heart failure, unspecified; Z99.2 Dependence on renal dialysis; E03.9 Hypothyroidism, unspecified; E11.22 Type 2 diabetes mellitus with diabetic chronic kidney disease; Z79.4 Long term (current) use of insulin; Z86.73 Personal history of transient ischemic attack (TIA), and cerebral infarction without residual deficits; E88.09 Other disorders of plasma-protein metabolism, not elsewhere classified; I25.2 Old myocardial infarction; R19.7 Diarrhea, unspecified; F03.90 Unspecified dementia, unspecified severity, without behavioral disturbance, psychotic disturbance, mood disturbance, and anxiety; Z95.810 Presence of automatic (implantable) cardiac defibrillator; D64.9 Anemia, unspecified; E66.3 Overweight; Z68.26 Body mass index [BMI] 26.0-26.9, adult; I25.10 Atherosclerotic heart disease of native coronary artery without angina pectoris; B19.20 Unspecified viral hepatitis C without hepatic coma; E11.40 Type 2 diabetes mellitus with diabetic neuropathy, unspecified; J44.9 Chronic obstructive pulmonary disease, unspecified
CPT/HCPCS: 36415; 71045-TC-FY; 71250-TC; 73630-TC-RT-FY; 74176-TC; 80048; 80053; 81003; 82542; 82550; 82607; 82746; 82962; 83036; 83540; 83550; 83605; 83690; 83735; 84100; 84484; 85025; 85027; 85044; 85610; 85730; 86022; 86803; 87040; 87045; 87046; 87070; 87086; 87177; 87205; 87209; 87324; 87340; 87389; 87449; 87804; 87899; 93005; 93010; 93306-TC; 94640; 94761; 99285-25; G0480; J0885; J1644

== ENCOUNTER 2019-10-31 14:05 | Inpatient (IN) | payer OTHER ==
[2019-10-31] MEDS ORDERED: ACETAMINOPHEN 1000 MG/100 ML VIAL (NON FORMULARY) IVPB ONE (14:54)
[2019-10-31] MEDS ORDERED: ASPIRIN 81 MG CHEWABLE TABLETS PO ONE (14:55)
--- NOTE | 2019-10-31 14:56 | PDOC ---
History of Present Illness - General Chief Complaint: Edema Stated Complaint: R/O FULID OVERLOAD Time Seen by Provider: 10/31/19 14:21 History Source: Patient Exam Limitations: No Limitations - History of Present Illness Initial Comments: 69M PMH HTN, CHF s/p AICD/PPM, IDDM, ESRD (HD //; last session yesterday) , COPD (2L home O2) BIBEMS from [facility] for chest pain, back pain, and abdominal distension that occurred after he was straining on the toilet. Pain was described as all over the chest and wrapping around to the back without radiation to the arms or neck. Pain has decreased since it started. Endorses abdominal pain and distension that got worse today. Endorses nausea but no vomiting. Denies f/c, diarrhea, dysuria. EMS report states [facility] was sending patient for possible fluid overload and 8 lbs weight gain in past 2 days. Past History - Past Medical History Allergies/Adverse Reactions: Allergies Allergy/AdvReac Type Severity Reaction Status Date / Time No Known Allergies Allergy Verified 10/09/19 13:17 Home Medications: Ambulatory Orders Acetaminophen [Pain Relief] 650 mg PO PRN 10/20/19 Donepezil HCl [Aricept] 10 mg PO HS 10/20/19 Famotidine [Acid Controller] 20 mg PO BID 10/20/19 Insulin Detemir [Levemir Flextouch] 10 unit SCJ HS 10/20/19 Ipratropium/Albuterol Sulfate [Iprat-Albut 0.5-3(2.5) mg/3 ml] 1 tube NEB QID Isosorbide Dinitrate [Isordil] 20 mg PO BID 10/20/19 Levothyroxine Sodium [Levoxyl] 125 mcg PO DAILY 10/20/19 Pregabalin [Lyrica -] 75 mg PO DAILY 10/20/19 Atorvastatin Ca [Lipitor] 10 mg PO HS 10/31/19 Insulin Sliding Scale [Novolog Vial Sliding Scale -] 0 units SQ ACHS 10/31/19 Carvedilol [Coreg -] 6.25 mg PO BID tablet 11/07/19 Collagenase Clostridium Hist. [Santyl -] 1 applic TP DAILY tube 11/07/19 Anemia: No Asthma: No Cancer: No Cardiac Disorders: Yes (pacemaker) CVA: No COPD: No CHF: Yes Diabetes: Yes GI Disorders: Yes Disorders: Yes (ESRD dialysis tues/donya/sat) HTN: Yes Liver Disease: No Seizures: No Thyroid Disease: Yes (hypo) - Surgical History Cardiac Surgery: Yes (DEFIBRILLATOR) Cholecystectomy: Yes - Psycho Social/Smoking Cessation Hx Smoking History: Never smoked Have you smoked in the past 12 months: No Hx Alcohol Use: No Drug/Substance Use Hx: No Substance Use Type: None Review of Systems - Review of Systems Comments:: CONSTITUTIONAL: Denies F / C HEENT: Denies headache, lightheadedness, dizziness, changes in vision / hearing RESP: Denies SOB, cough, orthopnea, RAMÍREZ CARD: Denies chest pain, palpitations GI: Endorses nausea. Denies vomiting, diarrhea, bloody stool, inability to tolerate PO : Denies dysuria SKIN: Denies rashes NEURO: Denies numbness, tingling, weakness *Physical Exam - Vital Signs Last Vital Signs Temp Pulse Resp BP Pulse Ox 97.9 F 72 19 111/68 100 10/31/19 14:10 10/31/19 14:10 10/31/19 14:10 10/31/19 14:10 10/31/19 14:10 - Physical Exam GEN: Moderately uncomfortable. AAOx3. HEENT: NC/AT, EOMI, PERRL, icteric sclera. No facial asymmetry. Normal voice. Supple neck w/ FROM. CV: +TTP of the anterior chest wall shahla of the left side. S1/S2, RRR, no m/r/g. There is a permacath placed on the right chest. LUNG: CTAB, no wheezes, crackles, rales, rhonchi. GI: Distended, +TTP everywhere, +BS, no guarding. EXTREMITIES: 3+ pitting LE edema. No obvious deformities of all extremities. SKIN: Appears mildly jaundiced, warm, dry, intact PSYCH: Normal mood and affect. NEURO: Moving all extremities well. ED Treatment Course - LABORATORY CBC & Chemistry Diagram: 11/10/19 05:48 11/10/19 05:48 - RADIOLOGY Radiology Studies Ordered: Category Date Time Status CHEST X-RAY PORTABLE* [RAD] Stat Radiology 10/31/19 14:47 Ordered Medical Decision Making - Medical Decision Making 10/31/19 14:50 69M PMH HTN, CHF s/p AICD/PPM, IDDM, ESRD (HD //; last session yesterday) , COPD (2L home O2) BIBEMS from [facility] for chest pain, back pain, and abdominal distension that occurred after he was straining on the toilet Labs reviewed - intermediately elevated trop - BNP Impression: The thoracoabdominal aorta demonstrates no CT evidence of dissection or aneurysm. Moderate bilateral pleural effusions are seen which appear mildly increased in size in comparison to a CT exam of 10/09/2019. There is resultant partial bilateral lower lobe compressive atelectasis. Increased concentric subcutaneous edema. Partial interval resolution of a area of lingular atelectasis/infiltrate is seen. The remainder of the chest demonstrates no definite interval change. Cardiomegaly. Extensive atherosclerotic coronary calcifications. Transvenous cardiac pacemaker in place. Right internal jugular venous catheter in place. A small amount of ascites is again noted within the abdomen and pelvis bilaterally. Colonic diverticulosis. Status post cholecystectomy. Will reach out to Dr. Dubose Admit 10/31/19 17:52 d/w Dr. Dubose: would like to dialyze tonight GRACE, asking for tele or ICU bed since pt requires at least telemetry d/w ICU Resident: there is bed available for both ICU and tele in the ICU d/w Hospitalist YURI Kelley: endorsed. ADMITTED Discharge - Discharge Information Problems reviewed: Yes Clinical Impression/Diagnosis: Volume overload Qualifiers: Hypervolemia type: other Qualified Code(s): E87.79 - Other fluid overload Condition: Guarded - Follow up/Referral - Patient Discharge Instructions - Post Discharge Activity
--- NOTE | 2019-10-31 15:53 | PDOC ---
Attending Attestation - Resident Resident Name: Rodolfo Vieyra - ED Attending Attestation I have performed the following: I have examined & evaluated the patient, The case was reviewed & discussed with the resident, I agree w/resident's findings & plan - HPI HPI: 10/31/19 15:49 69 y/o M with PMH IL, ESRD on dialysis (//Sun), HLD, hypothyroidism, DM, former alcoholic until jun 2019, recent admission for RLE wound, as well as cholecystectomy (09/17/19) presenting to ED from [place] for chest pain, SOB, abdominal fluid and bloating. Recently admitted from 10/03 6-10/17/19 4 fever secondary to pneumonia and discharged on Ceftin, CHF with severely reduced LVEF - Physicial Exam PE: 10/31/19 15:50 Agree with the resident's HPI and PE as documented in the electronic medical record. NAD, malaised appearing, EOMI, PERRL, nl conjunctiva, anicteric; neck supple. lungs diminished breath sounds bilaterally. RRR, right anterior chest wall permacath. abdomen soft nontender. no rebound, guarding. Back nontender. CHAIREZ x4 , no focal neuro deficits. No peripheral edema. normal color for ethnicity, WWP. 10/31/19 17:24 - Medical Decision Making 10/31/19 15:52 Vital Signs Temp Pulse Resp BP Pulse Ox 97.9 F 72 19 111/68 100 10/31/19 14:10 10/31/19 14:10 10/31/19 14:10 10/31/19 14:10 10/31/19 14:10 bedside ultrasound with severely reduced EF <30% no pericardial effusion. b/l pleural effusions of moderate degree. RV<LV. CT chest no dissection, pleural effusions, seen chest pain rule out, serial trop/ekg elevated trop 0.33, serial trop, ASA. needs HD plan to admit for tele, r/o ACS, diuresis, fluid overload state. 10/31/19 17:24 Heart Score/ECG Review #1 ECG reviewed & interpreted by me at: 16:20 General ECG Interpretation: Sinus Rhythm, Normal Rate, Normal Intervals Compared to previous ECG there are: No significant change 10/31/19 16:26 EKG atrial/paced pattern 82 bpm, no interval abnormalities, borderline wide QRS , ST and T wave segments and morphology normal. Nonspecific T wave abnormalities
[2019-10-31 16:06] LABS: BASO % 0.6 % (0-2.0); EOS % 1.6 % (0-4.5); HEMATOCRIT 32.9 % (35.4-49); HEMOGLOBIN 10.8 GM/dL (11.7-16.9); LYMPH % 16.4 % (8-40); MCH 31.2 pg (25.7-33.7); MCHC 32.7 g/dl (32.0-35.9); MEAN CELL VOLUME 95.3 fl (80-96); MEAN PLT VOLUME 9.4 fl (7.5-11.1); MONO % 7.9 % (3.8-10.2); NEUT % 73.5 % (42.8-82.8); PLATELET COUNT 70 K/MM3 (134-434); RBC 3.45 M/mm3 (4.00-5.60); RDW 17.4 % (11.9-15.9); WHITE BLOOD COUNT 5.7 K/mm3 (4.0-10.0)
[2019-10-31 16:18] LABS: INR 1.01 (0.83-1.09); PROTHROMBIN TIME (PATIENT) 11.9 SEC (9.7-13.0)
[2019-10-31] MEDS ORDERED: ACETAMINOPHEN INJECTION 100 ML IVPB ONE (16:40)
[2019-10-31] MEDS ORDERED: ASPIRIN 81 MG CHEWABLE TABLETS ONE (16:40)
[2019-10-31 16:44] LABS: ALBUMIN 2.4 g/dl (3.4-5.0); BILIRUBIN,TOTAL 0.4 mg/dL (0.2-1); BLOOD UREA NITROGEN 46.6 mg/dL (7-18); CALCIUM 7.5 mg/dL (8.5-10.1); CREATININE 3.4 mg/dL (0.55-1.3); MAGNESIUM 2.1 mg/dL (1.8-2.4); N-TERMINAL BNP 29792.8 pg/ml (5-125); PHOSPHOROUS 2.6 mg/dL (2.5-4.9); POTASSIUM 5.3 mmol/L (3.5-5.1); TOT PROT 5.4 g/dl (6.4-8.2)
--- NOTE | 2019-10-31 18:34 | CONSULT ---
Consult Consult Specialty:: Nephrology Reason for Consultation:: shortness of breath - History of Present Illness Chief Complaint: shortness of breath History of Present Illness: Pt is a 69 year old male with pmhx of esrd, hld, hypothyroidism, and dm who present with shortness of breath. He last went to HD yesterday. He complains of lower ext edema as well. He was recently treated for a PNA. He denies fevers or chills. He has a permacath for HD. 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) Pulmonary: Yes: Bronchitis, COPD, Pneumonia Renal/: Yes: Renal Failure, Hemodialysis Musculoskeletal: Yes: Other (Right plantarmedial heel with deep tissue injury , underlying hematoma which as now opened and draining, no erythema, pain on palpatin noted, no streaking, no edema, no bone exposed) Endocrine: Yes: Diabetes Insipidus - Alcohol/Substance Use Hx Alcohol Use: No - Smoking History Smoking history: Never smoked Have you smoked in the past 12 months: No - Social History Usual Living Arrangement: Jail History of Recent Travel: Yes (just arrived yesterday) Home Medications - Allergies Allergies/Adverse Reactions: Allergies Allergy/AdvReac Type Severity Reaction Status Date / Time No Known Allergies Allergy Verified 10/09/19 13:17 - Home Medications Home Medications: Ambulatory Orders Acetaminophen [Pain Relief] 650 mg PO PRN 10/20/19 Budesonide [Pulmicort 0.5 mg Nebulizer -] 1 amp NEB BID 10/20/19 Buspirone HCl [Buspar -] 5 mg PO BID 10/20/19 Carvedilol [Coreg -] 6.25 mg PO BID 10/20/19 Donepezil HCl [Aricept] 10 mg PO HS 10/20/19 Famotidine [Acid Controller] 20 mg PO BID 10/20/19 Insulin Detemir [Levemir Flextouch] 10 unit SCJ HS 10/20/19 Ipratropium/Albuterol Sulfate [Iprat-Albut 0.5-3(2.5) mg/3 ml] 1 tube NEB QID Isosorbide Dinitrate [Isordil] 20 mg PO BID 10/20/19 LORazepam [Ativan] 2 mg PO HS 10/20/19 Levothyroxine Sodium [Levoxyl] 125 mcg PO DAILY 10/20/19 Melatonin 10 mg PO HS 10/20/19 Pregabalin [Lyrica -] 75 mg PO DAILY 10/20/19 predniSONE [Deltasone -] 10 mg PO DAILY MDD 30 mg 10/20/19 Family Medical History Family History: Denies Review of Systems - Review of Systems Constitutional: reports: Malaise Eyes: reports: No Symptoms HENT: reports: No Symptoms Neck: reports: No Symptoms Cardiovascular: reports: Edema, Shortness of Breath Respiratory: reports: Cough, SOB on Exertion Genitourinary: reports: No Symptoms Musculoskeletal: reports: No Symptoms Neurological: reports: No Symptoms Endocrine: reports: No Symptoms Hematology/Lymphatic: reports: No Symptoms Psychiatric: reports: No Symptoms Physical Exam Vital Signs: Vital Signs Temperature 97.9 F 10/31/19 14:10 Pulse Rate 72 10/31/19 14:10 Respiratory Rate 19 10/31/19 14:10 Blood Pressure 111/68 10/31/19 14:10 O2 Sat by Pulse Oximetry (%) 100 10/31/19 14:10 Constitutional: Yes: Calm Eyes: Yes: Conjunctiva Clear HENT: Yes: Atraumatic Cardiovascular: Yes: S1, S2 Respiratory: Yes: On Nasal O2, Rhonchi Gastrointestinal: Yes: Soft Renal/: Yes: WNL Edema: Yes Edema: LLE: 2+, RLE: 2+ Neurological: Yes: Oriented Psychiatric: Yes: Oriented Labs: CBC, BMP 10/31/19 15:00 10/31/19 15:00 Imaging - Results Cat Scan: Report Reviewed Problem List - Problems (1) Acute decompensated heart failure Code(s): I50.9 - HEART FAILURE, UNSPECIFIED (2) Pleural effusion Code(s): J90 - PLEURAL EFFUSION, NOT ELSEWHERE CLASSIFIED (3) ESRD (end stage renal disease) Code(s): N18.6 - END STAGE RENAL DISEASE Assessment/Plan Impression 1. ESRD 2. HTN 3. fluid overload 4. DM 5. hypothyroidism 6. pleural effusion 7. hyperkalemia Plan - will arrange for urgent bedside HD for UF - will dialyze again tomorrow - monitor lytes - renal diet with fluid restriction - discussed with ER and ICU team
[2019-10-31] MEDS ORDERED: SODIUM CHLORIDE 250 ML IV PRN ×2 (20:46)
[2019-10-31] MEDS ORDERED: HEPARIN NA (PORCINE) 5,000 UNITS/ML 1ML VIAL IVPUSH ONE (21:00)
--- NOTE | 2019-10-31 21:07 | PN ---
Progress Note (short form) - Note Progress Note: ICU consult requested for emergent dialysis with tele monitoring. Pt seen at bedside stable, no acute distress. Complains of "fullness" in his belly with some shortness of breath. Denies elder/dizziness, n/v, chest pain. PE AAOx3. NAD. Resting in bed comfortably. AT/NC. EOMI. RRR. Symmetric chest rise. R side permacath. Diffuse coarse breath sounds. Distended, mild tenderness to palpation diffusely. 2+ pitting edema b/l lower extremities A/P: -Spoke to ED resident and Dr. Dubose (nephro). Pt only needs tele monitoring at this time as he is hemodynamically stable, not requiring pressor support and is also without any respiratory compromise. Agree to admit patient to tele as he does not need ICU level of care.
[2019-10-31 22:12] LABS: EPI CELLS 2.4 /HPF (0-5/HPF); HYALINE CASTS 4 /lpf (0-8); URINE APPEARANCE CLEAR; URINE BACTERIA 357.4 /hpf (NEGATIVE); URINE BILIRUBIN NEGATIVE (NEGATIVE); URINE COLOR YELLOW; URINE GLUCOSE (UA) 2+ (NEGATIVE); URINE KETONE NEGATIVE (NEGATIVE); URINE LEUK ESTERASE NEGATIVE (NEGATIVE); URINE NITRITE NEGATIVE (NEGATIVE); URINE PROTEIN 4+ (NEGATIVE); URINE WBC 7 /hpf (0-5)
--- NOTE | 2019-10-31 23:52 | HP ---
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 Who presents to the ED for CP, abdominal pain and bloating. Patient at bedside unable to explain the events leading to him coming to the hospital. Patient currently receiving HD in ICU. Patient denies SOB, CP, AP and bloating at present. 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 Cardiovascular: Yes: CHF, HTN, Other (MOTOR TESTER-D) Pulmonary: Yes: Bronchitis, COPD, Pneumonia Renal/: Yes: Renal Failure, Hemodialysis Musculoskeletal: Yes: Other (Right plantarmedial heel with deep tissue injury , underlying hematoma which as now opened and draining, no erythema, pain on palpatin noted, no streaking, no edema, no bone exposed) Endocrine: Yes: Diabetes Insipidus - Past Surgical History Past Surgical History: Yes: Cholecystectomy, Permanent Pacemaker Additional Past Surgical History: PermaCatheter- RCW - Smoking History Smoking history: Never smoked Have you smoked in the past 12 months: No - Alcohol/Substance Use Hx Alcohol Use: No (former- quit 06/2019) - Social History Usual Living Arrangement: Yes: Prison ADL: Support Services History of Recent Travel: No Home Medications - Allergies Allergies/Adverse Reactions: Allergies Allergy/AdvReac Type Severity Reaction Status Date / Time No Known Allergies Allergy Verified 10/09/19 13:17 - Home Medications Home Medications: Ambulatory Orders Acetaminophen [Pain Relief] 650 mg PO PRN 10/20/19 Donepezil HCl [Aricept] 10 mg PO HS 10/20/19 Famotidine [Acid Controller] 20 mg PO BID 10/20/19 Insulin Detemir [Levemir Flextouch] 10 unit SCJ HS 10/20/19 Ipratropium/Albuterol Sulfate [Iprat-Albut 0.5-3(2.5) mg/3 ml] 1 tube NEB QID Isosorbide Dinitrate [Isordil] 20 mg PO BID 10/20/19 Levothyroxine Sodium [Levoxyl] 125 mcg PO DAILY 10/20/19 Pregabalin [Lyrica -] 75 mg PO DAILY 10/20/19 Atorvastatin Ca [Lipitor] 10 mg PO HS 10/31/19 Carvedilol 6.25 mg PO DAILY 10/31/19 Insulin Sliding Scale [Novolog Vial Sliding Scale -] 0 units SQ ACHS 10/31/19 Family Medical History Family History: Unable to Obtain Review of Systems Unable to obtain ROS, reason: Dementia Physical Examination Vital Signs: Vital Signs Temperature 97.7 F 10/31/19 21:45 Pulse Rate 60 10/31/19 23:30 Respiratory Rate 19 10/31/19 23:30 Blood Pressure 140/67 10/31/19 23:30 O2 Sat by Pulse Oximetry (%) 100 10/31/19 21:45 Constitutional: Yes: No Distress, Calm Eyes: Yes: Conjunctiva Clear, PERRL HENT: Yes: WNL, Atraumatic, Normocephalic Neck: Yes: WNL, Supple, Trachea Midline Cardiovascular: Yes: Pulse Irregular, S1, S2 Respiratory: Yes: Diminished (bilaterally) Gastrointestinal: Yes: Normal Bowel Sounds, Soft ...Rectal Exam: Yes: Deferred Breast(s): Yes: WNL Musculoskeletal: Yes: WNL Extremities: Yes: WNL Edema: Yes Edema: LLE: 2+, RLE: 2+ Peripheral Pulses WNL: Yes Neurological: Yes: Alert, Confusion, Cran Nerves II-XII Intact ...Motor Strength: WNL Psychiatric: Yes: WNL, Alert Labs: CBC, BMP 10/31/19 15:00 10/31/19 15:00 Imaging - Results Chest X-ray: Report Reviewed, Image Reviewed Cat Scan: Report Reviewed, Image Reviewed EKG: Image Reviewed Problem List - Problems (1) Acute decompensated heart failure Assessment/Plan: BNP> 88557 CXR reviewed EKG reviewed HD tonight Continue cardiac monitoring Serial enzymes O2 Monitor BMP Strict INOs Daily weight Fluid Restrictions Code(s): I50.9 - HEART FAILURE, UNSPECIFIED (2) COPD (chronic obstructive pulmonary disease) Assessment/Plan: Likely secondary to HF flare Duonebs O2 Chest Xray- mod pleural effusion, slight increase from 10/09 Appreciate Pulm consult Code(s): J44.9 - CHRONIC OBSTRUCTIVE PULMONARY DISEASE, UNSPECIFIED (3) ESRD (end stage renal disease) Assessment/Plan: HD (, , ) Will require dialysis tonight secondary to profound fluid oveload Nephrology following Monitor BMP Monitor vitals Avoid Nephrotoxic drugs Code(s): N18.6 - END STAGE RENAL DISEASE (4) Biventricular ICD (implantable cardioverter-defibrillator) in place Assessment/Plan: EKG- ventricular paced rhythm Code(s): Z95.810 - PRESENCE OF AUTOMATIC (IMPLANTABLE) CARDIAC DEFIBRILLATOR (5) Cardiomyopathy Assessment/Plan: Continue home meds with parameters Code(s): I42.9 - CARDIOMYOPATHY, UNSPECIFIED Qualifiers: (6) Diabetes Assessment/Plan: stable BGMs ISS Continue Levemir Code(s): E11.9 - TYPE 2 DIABETES MELLITUS WITHOUT COMPLICATIONS Qualifiers: Diabetes mellitus type: type 2 Chronic kidney disease stage: on chronic dialysis (7) Hypothyroid Assessment/Plan: stable Continue Levothyroxine Code(s): E03.9 - HYPOTHYROIDISM, UNSPECIFIED Qualifiers: Hypothyroidism type: unspecified Qualified Code(s): E03.9 - Hypothyroidism , unspecified Assessment/Plan This is a 69 y/o man from [facility] with a PMHx of ESRD (HD-,, ), CHF, AICD, HTN, DM, COPD (O2- 2L), Former Alcohol Abuse- 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 Admitted to Telemetry for Acute on Chronic CHF Exacerbation, ESRD for further evaluation of their emergent condition. Plan: See Problem List FEN Fluid Restriction 1L Replete lytes prn Renal, Low Na, Diabetic Diet DVT ppx OOB SCDs Heparin SQ Dispo: Requires Inpatient Care Visit type - Emergency Visit Emergency Visit: Yes ED Registration Date: 10/31/19 Care time: The patient presented to the Emergency Department on the above date and was hospitalized for further evaluation of their emergent condition. - New Patient This patient is new to me today: Yes Date on this admission: 10/31/19 - Critical Care Critical Care patient: Yes Total Critical Care Time (in minutes): 35 Critical Care Statement: The care of this patient involved high complexity decision making to prevent further life threatening deterioration of the patient 's condition and/or to evaluate & treat vital organ system(s) failure or risk of failure.
[2019-11-01] MEDS: INSULIN SLIDING SCALE (NOVOLOG) 1 VIAL SQ SCH ×4 (06:37→22:45)
[2019-11-01] MEDS: LEVOTHYROXINE NA 125 MCG TABLET (FP) PO SCH (06:51)
--- NOTE | 2019-11-01 09:17 | EKG ---
Test Reason : Blood Pressure : / mmHG Vent. Rate : 082 BPM Atrial Rate : 082 BPM P-R Int : 148 ms QRS Dur : 132 ms QT Int : 418 ms P-R-T Axes : 044 147 -67 degrees QTc Int : 488 ms Atrial-sensed ventricular-paced rhythm Biventricular pacemaker detected ABNORMAL ECG WHEN COMPARED WITH ECG OF 09-OCT-2019 13:29, VENT. RATE HAS DECREASED BY 13 BPM Confirmed by ELMO MONTANO, NESHA ([id number]) on 11/01/2019 9:17:08 AM Referred By: Confirmed By:NESHA BORREGO MD
[2019-11-01] MEDS ORDERED: PT OWN MED DRAWER 7, Y5N ONE (10:00)
[2019-11-01] MEDS ORDERED: ALBUTEROL SO4 2.5/IPRATROPIUM 0.5 INH SOL 3 ML VIAL.NEB. NEB SCH (10:00)
[2019-11-01] MEDS ORDERED: PREGABALIN 75 MG CAPSULE PO SCH (10:00)
[2019-11-01] MEDS: ISOSORBIDE DINITRATE 20 MG TABLET (FP) PO SCH ×2 (10:05→21:51)
[2019-11-01] MEDS: CARVEDILOL 6.25 MG TABLET (FP) PO SCH ×2 (10:09→21:51)
--- NOTE | 2019-11-01 11:21 | CON.CARD ---
Cardiology Consult (text) - Consultation Consultation Note: cc: sob hpi: 69 m hx dementia, htn, dm, syst chf s/p [place] b[place] icd, esrd on hd, here with sob. Past few days with sob and le edema. No cp palps dizzy loc pnd orthopnea. pmh: per hpi psh: cholecystectomy social: no tob fam: no premature cad ros: per hpi; all others nl meds: Ambulatory Orders Acetaminophen [Pain Relief] 650 mg PO PRN 10/20/19 Donepezil HCl [Aricept] 10 mg PO HS 10/20/19 Famotidine [Acid Controller] 20 mg PO BID 10/20/19 Insulin Detemir [Levemir Flextouch] 10 unit SCJ HS 10/20/19 Ipratropium/Albuterol Sulfate [Iprat-Albut 0.5-3(2.5) mg/3 ml] 1 tube NEB QID Isosorbide Dinitrate [Isordil] 20 mg PO BID 10/20/19 Levothyroxine Sodium [Levoxyl] 125 mcg PO DAILY 10/20/19 Pregabalin [Lyrica -] 75 mg PO DAILY 10/20/19 Atorvastatin Ca [Lipitor] 10 mg PO HS 10/31/19 Carvedilol 6.25 mg PO DAILY 10/31/19 Insulin Sliding Scale [Novolog Vial Sliding Scale -] 0 units SQ ACHS 10/31/19 Current Medications Generic Name Dose Route Start Last Admin Trade Name Freq PRN Reason Stop Dose Admin Albuterol/Ipratropium 1 amp 11/01/19 10:00 Duoneb - NEB QID [facility] Atorvastatin Calcium 10 mg 11/01/19 22:00 Lipitor - PO HS OSCAR Carvedilol 6.25 mg 11/01/19 10:00 11/01/19 10:09 Coreg - PO 6.25 mg BID OSC[facility] Administration Donepezil HCl 10 mg 11/01/19 22:00 Aricept - PO HS OSCAR Famotidine 20 mg 11/01/19 22:00 Pepcid - PO HS [facility] Sodium Chloride 250 mls @ 3,000 mls/hr 10/31/19 20:46 Normal Saline - IV 11/01/19 20:45 PRN PRN Hypotension during Dialysis Sodium Chloride 250 mls @ 3,000 mls/hr 10/31/19 20:46 Normal Saline - IV 11/01/19 20:45 PRN PRN Hypotension during Dialysis Insulin Aspart 1 vial 11/01/19 07:00 11/01/19 06:37 Novolog Vial Sliding Scale - SQ Not Given [facility]CHS [facility] Protocol Insulin Detemir 10 units 11/01/19 22:00 Levemir Vial SQ HS [facility] Isosorbide Dinitrate 20 mg 11/01/19 10:00 11/01/19 10:05 Isordil - PO 20 mg BID [facility] Administration Levothyroxine Sodium 125 mcg 11/01/19 07:00 11/01/19 06:51 Synthroid - PO 125 mcg DAILY@0700 [facility] Administration Pregabalin 75 mg 11/01/19 10:00 11/01/19 10:05 Lyrica - PO 75 mg DAILY [facility] Administration Vital Signs Period Temp Pulse Resp BP Sys/Palacios Pulse Ox Last 24 Hr 97.7 F-97.9 F 60-86 15-22 90-167/45-80 100-100 nad no jvd rrr s1s2 no mrg scattered rhonchi bl, nl eff awake alert no jaundice diaphoresis abd nt nd pos bs no jaundice diaphoresis pos dp pt no carotid bruits Laboratory Last Values WBC 5.7 K/mm3 (4.0-10.0) 10/31/19 15:00 RBC 3.45 M/mm3 (4.00-5.60) L 10/31/19 15:00 Hgb 10.8 GM/dL (11.7-16.9) L 10/31/19 15:00 Hct 32.9 % (35.4-49) L 10/31/19 15:00 MCV 95.3 fl (80-96) 10/31/19 15:00 MCH 31.2 pg (25.7-33.7) 10/31/19 15:00 MCHC 32.7 g/dl (32.0-35.9) 10/31/19 15:00 RDW 17.4 % (11.9-15.9) H 10/31/19 15:00 Plt Count 70 K/MM3 (134-434) L D 10/31/19 15:00 MPV 9.4 fl (7.5-11.1) D 10/31/19 15:00 Absolute Neuts (auto) 4.2 K/mm3 (1.5-8.0) 10/31/19 15:00 Neutrophils % 73.5 % (42.8-82.8) D 10/31/19 15:00 Lymphocytes % 16.4 % (8-40) D 10/31/19 15:00 Monocytes % 7.9 % (3.8-10.2) D 10/31/19 15:00 Eosinophils % 1.6 % (0-4.5) D 10/31/19 15:00 Basophils % 0.6 % (0-2.0) D 10/31/19 15:00 Nucleated RBC % 0 % (0-0) 10/31/19 15:00 PT with INR 11.90 SEC (9.7-13.0) 10/31/19 15:00 INR 1.01 (0.83-1.09) 10/31/19 15:00 PTT (Actin FS) 30.0 SECONDS (25.2-36.5) 10/31/19 15:00 Sodium 137 mmol/L (136-145) 10/31/19 15:00 Potassium 5.3 mmol/L (3.5-5.1) H 10/31/19 15:00 Chloride 104 mmol/L (98-107) 10/31/19 15:00 Carbon Dioxide 26 mmol/L (21-32) 10/31/19 15:00 Anion Gap 7 MMOL/L (8-16) L 10/31/19 15:00 BUN 46.6 mg/dL (7-18) H 10/31/19 15:00 Creatinine 3.4 mg/dL (0.55-1.3) H 10/31/19 15:00 Est GFR (CKD-EPI)AfAm 20.04 10/31/19 15:00 Est GFR (CKD-EPI)NonAf 17.29 10/31/19 15:00 POC Glucometer 121 UNITS (80-120) 11/01/19 06:19 Random Glucose 257 mg/dL (74-106) H 10/31/19 15:00 Calcium 7.5 mg/dL (8.5-10.1) L 10/31/19 15:00 Phosphorus 2.6 mg/dL (2.5-4.9) 10/31/19 15:00 Magnesium 2.1 mg/dL (1.8-2.4) 10/31/19 15:00 Total Bilirubin 0.4 mg/dL (0.2-1) 10/31/19 15:00 AST 35 U/L (15-37) 10/31/19 15:00 ALT 51 U/L (13-61) 10/31/19 15:00 Alkaline Phosphatase 253 U/L (45-117) H 10/31/19 15:00 Creatine Kinase 67 U/L (26-308) 10/31/19 15:00 Troponin I 0.29 ng/ml (0.00-0.05) H 11/01/19 05:55 B-Natriuretic Peptide 98071.8 pg/ml (5-125) H 10/31/19 15:00 Total Protein 5.4 g/dl (6.4-8.2) L 10/31/19 15:00 Albumin 2.4 g/dl (3.4-5.0) L 10/31/19 15:00 Lipase 378 U/L (73-393) 10/31/19 15:00 Urine Color Yellow 10/31/19 21:05 Urine Appearance Clear 10/31/19 21:05 Urine pH 5.0 (5.0-8.0) 10/31/19 21:05 Ur Specific [place] 1.034 (1.010-1.035) 10/31/19 21:05 Urine Protein 4+ (NEGATIVE) H 10/31/19 21:05 Urine Glucose (UA) 2+ (NEGATIVE) H 10/31/19 21:05 Urine Ketones Negative (NEGATIVE) 10/31/19 21:05 Urine Blood Trace (NEGATIVE) 10/31/19 21:05 Urine Nitrite Negative (NEGATIVE) 10/31/19 21:05 Urine Bilirubin Negative (NEGATIVE) 10/31/19 21: Urine Urobilinogen 1.0 mg/dL (0.2-1.0) 10/31/19 21:05 Ur Leukocyte Esterase Negative (NEGATIVE) 10/31/19 21:05 Urine WBC (Auto) 7 /hpf (0-5) 10/31/19 21:05 Urine RBC (Auto) 5-8 /hpf (0-4) 10/31/19 21:05 Urine Casts (Auto) 4 /lpf (0-8) 10/31/19 21:05 U Epithel Cells (Auto) 2.4 /HPF (0-5/HPF) 10/31/19 21:05 Urine Bacteria (Auto) 357.4 /hpf (NEGATIVE) 10/31/19 21:05 echo 09/2019: lve, lvef 20-25%, global hk, lae, nl rv, mod mr, mod tr, mild ar , rvsp 40-50 09/19/2019 [employer] 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 08/2019 10 beat run of NSVT self- terminated w/o therapy. 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 acute systolic chf, biv icd: -lvef severely reduced (?ischemic vs nicm, recently came from [place]) -has biv icd placed 2013, nl fcn when checked here last month -evidence of some vol overload with bl pleural effs, cont HD per renal for vol management -cont coreg, nitrate htn: -cont coreg, nitrate esrd: -cont hd per renal elevated trops: -borderline trop elevation with flat trend and nl ck, similar to prior baseline values, not c/w acs
[2019-11-01 12:08] LABS: HEMATOCRIT 31.2 % (35.4-49); HEMOGLOBIN 10.3 GM/dL (11.7-16.9); MCH 30.7 pg (25.7-33.7); MCHC 32.9 g/dl (32.0-35.9); MEAN CELL VOLUME 93.5 fl (80-96); MEAN PLT VOLUME 8.9 fl (7.5-11.1); PLATELET COUNT 66 K/MM3 (134-434); RBC 3.34 M/mm3 (4.00-5.60); RDW 17.7 % (11.9-15.9); WHITE BLOOD COUNT 4.4 K/mm3 (4.0-10.0)
[2019-11-01 12:35] LABS: CALCIUM 7.1 mg/dL (8.5-10.1); CREATININE 2.6 mg/dL (0.55-1.3); POTASSIUM 4.5 mmol/L (3.5-5.1)
[2019-11-01] MEDS: ALBUTEROL SO4 2.5/IPRATROPIUM 0.5 INH SOL 3 ML VIAL.NEB. NEB SCH ×3 (13:03→20:00)
--- NOTE | 2019-11-01 15:06 | PN ---
Progress Note (short form) - Note Progress Note: 1. ESRD 2. HTN 3. fluid overload 4. DM 5. hypothyroidism 6. pleural effusion 7. hyperkalemia Current Medications Albuterol/Ipratropium (Duoneb -) 1 amp NEB RQID [facility] Last Admin: 11/01/19 13:03 Dose: 1 amp Atorvastatin Calcium (Lipitor -) 10 mg PO HS [facility] Carvedilol (Coreg -) 6.25 mg PO BID [facility] Last Admin: 11/01/19 10:09 Dose: 6.25 mg Donepezil HCl (Aricept -) 10 mg PO HS [facility] Famotidine (Pepcid -) 20 mg PO HS [facility] Sodium Chloride (Normal Saline -) 250 mls @ 3,000 mls/hr IV PRN PRN PRN Reason: Hypotension during Dialysis Stop: 11/01/19 20:45 Sodium Chloride (Normal Saline -) 250 mls @ 3,000 mls/hr IV PRN PRN PRN Reason: Hypotension during Dialysis Stop: 11/01/19 20:45 Insulin Aspart (Novolog Vial Sliding Scale -) 1 vial SQ [facility]; Protocol Last Admin: 11/01/19 13:18 Dose: 2 units Insulin Detemir (Levemir Vial) 10 units SQ [facility] Isosorbide Dinitrate (Isordil -) 20 mg PO BID [facility] Last Admin: 11/01/19 10:05 Dose: 20 mg Levothyroxine Sodium (Synthroid -) 125 mcg PO DAILY@0700 [facility] Last Admin: 11/01/19 06:51 Dose: 125 mcg Pregabalin (Lyrica -) 75 mg PO DAILY [facility] Last Admin: 11/01/19 10:05 Dose: 75 mg Last Vital Signs Temp Pulse Resp BP Pulse Ox 97.8 F 64 20 140/69 100 11/01/19 09:00 11/01/19 13:55 11/01/19 13:55 11/01/19 13:55 11/01/19 08:49 alert in nad eating dinner Lungs clear heart reg Abd soft montender CBC, BMP 11/01/19 11:25 11/01/19 11:25 IMP ESRD s/p HD Plan Maintenance next week
--- NOTE | 2019-11-01 15:13 | PN ---
Progress Note, Physician Chief Complaint: Chest Pain Abdominal Pain/Bloating ESRD HTN Acute on Chronic CHF DM pleural effusion Hyperkalemia History of Present Illness: NAD denies any pain at the moment Heel pain when he moves his feet - Current Medication List Current Medications: Active Medications Albuterol/Ipratropium (Duoneb -) 1 amp NEB RQID [facility] Last Admin: 11/01/19 13:03 Dose: 1 amp Atorvastatin Calcium (Lipitor -) 10 mg PO HS [facility] Carvedilol (Coreg -) 6.25 mg PO BID [facility] Last Admin: 11/01/19 10:09 Dose: 6.25 mg Donepezil HCl (Aricept -) 10 mg PO HS [facility] Famotidine (Pepcid -) 20 mg PO [facility] Sodium Chloride (Normal Saline -) 250 mls @ 3,000 mls/hr IV PRN PRN PRN Reason: Hypotension during Dialysis Stop: 11/01/19 20:45 Sodium Chloride (Normal Saline -) 250 mls @ 3,000 mls/hr IV PRN PRN PRN Reason: Hypotension during Dialysis Stop: 11/01/19 20:45 Insulin Aspart (Novolog Vial Sliding Scale -) 1 vial SQ [facility]; Protocol Last Admin: 11/01/19 13:18 Dose: 2 units Insulin Detemir (Levemir Vial) 10 units SQ [facility] Isosorbide Dinitrate (Isordil -) 20 mg PO BID [facility] Last Admin: 11/01/19 10:05 Dose: 20 mg Levothyroxine Sodium (Synthroid -) 125 mcg PO DAILY@0700 [facility] Last Admin: 11/01/19 06:51 Dose: 125 mcg Pregabalin (Lyrica -) 75 mg PO DAILY [facility] Last Admin: 11/01/19 10:05 Dose: 75 mg - Objective Vital Signs: Vital Signs Temperature 97.8 F 11/01/19 09:00 Pulse Rate 64 11/01/19 13:55 Respiratory Rate 20 11/01/19 13:55 Blood Pressure 140/69 11/01/19 13:55 O2 Sat by Pulse Oximetry (%) 100 11/01/19 08:49 Constitutional: Yes: Well Nourished, No Distress, Calm Cardiovascular: Yes: Regular Rate and Rhythm, Murmur Respiratory: Yes: Regular, On Nasal O2, Rales (BLL) Gastrointestinal: Yes: Normal Bowel Sounds, Soft Genitourinary: Yes: WNL Musculoskeletal: Yes: Muscle Weakness Extremities: Yes: WNL Edema: Yes Peripheral Pulses WNL: Yes Neurological: Yes: Alert, Oriented Psychiatric: Yes: Alert, Oriented Labs: CBC, BMP 11/01/19 11:25 11/01/19 11:25 INR, PTT INR 1.01 (0.83-1.09) 10/31/19 15:00 Problem List - Problems (1) Hyperkalemia Assessment/Plan: -resolved Problems reviewed: Yes Code(s): E87.5 - HYPERKALEMIA (2) Pleural effusion Assessment/Plan: -Improved -HD as per renal Problems reviewed: Yes Code(s): J90 - PLEURAL EFFUSION, NOT ELSEWHERE CLASSIFIED (3) Diabetes Assessment/Plan: -BGM AC HS -ISS -Last A1c 8.1 in 09/2019 -Levemir Problems reviewed: Yes Code(s): E11.9 - TYPE 2 DIABETES MELLITUS WITHOUT COMPLICATIONS Qualifiers: Diabetes mellitus type: type 2 Chronic kidney disease stage: on chronic dialysis (4) ESRD (end stage renal disease) Assessment/Plan: -Nephrology on board -HD as per renal Problems reviewed: Yes Code(s): N18.6 - END STAGE RENAL DISEASE (5) Elevated troponin Assessment/Plan: -Seen by Cardiology -At baseline as previous, likely 2/2 to ESRD, not consistent with ACS -EKG-NSR -Echo 09/2019: LVEF 20-25%, global hyperkinesis, normal Right ventricle, mod mitral rregurg, mod tricuspid regurg, mild aortic regurg, right vent systolic pressure- 40-50 Problems reviewed: Yes Code(s): R79.89 - OTHER SPECIFIED ABNORMAL FINDINGS OF BLOOD CHEMISTRY Assessment/Plan see problem list
[2019-11-01] MEDS: ATORVASTATIN CA 10 MG TABLET (FP) PO SCH (21:52)
[2019-11-01] MEDS: DONEPEZIL HCL 10 MG TABLET (FP) PO SCH (21:52)
[2019-11-01] MEDS: PREGABALIN 75 MG CAPSULE PO SCH (21:54)
[2019-11-01] MEDS: FAMOTIDINE 20 MG TABLET PO SCH (21:55)
[2019-11-01] MEDS ORDERED: INSULIN DETEMIR 10 UNIT SCJ SCH (22:00)
[2019-11-01] MEDS: INSULIN (LEVEMIR) 100 UNITS/ML UNITS SQ SCH (22:44)
[2019-11-02] MEDS: PREGABALIN 75 MG CAPSULE PO SCH ×3 (05:35→22:14)
[2019-11-02] MEDS: LEVOTHYROXINE NA 125 MCG TABLET (FP) PO SCH (06:19)
[2019-11-02] MEDS: INSULIN SLIDING SCALE (NOVOLOG) 1 VIAL SQ SCH ×4 (06:36→22:30)
[2019-11-02] MEDS ORDERED: PT OWN MED DRAWER 7, Y5N ONE ×4 (07:55→22:16)
[2019-11-02] MEDS: ALBUTEROL SO4 2.5/IPRATROPIUM 0.5 INH SOL 3 ML VIAL.NEB. NEB SCH ×4 (08:00→21:21)
[2019-11-02] MEDS: CARVEDILOL 6.25 MG TABLET (FP) PO SCH ×2 (09:41→22:14)
[2019-11-02] MEDS: ISOSORBIDE DINITRATE 20 MG TABLET (FP) PO SCH ×2 (09:44→22:25)
--- NOTE | 2019-11-02 09:55 | PN ---
Progress Note (short form) - Note Progress Note: s: no cp palps dizzy, sob less Current Medications Generic Name Dose Route Start Last Admin Trade Name Freq PRN Reason Stop Dose Admin Acetaminophen 650 mg 11/01/19 16:30 Tylenol - PO Q4H PRN PAIN Albuterol/Ipratropium 1 amp 11/01/19 13:15 11/02/19 08:00 Duoneb - NEB 1 amp RQID [facility] Administration Atorvastatin Calcium 10 mg 11/01/19 22:00 11/01/19 21:52 Lipitor - PO 10 mg HS [facility] Administration Carvedilol 6.25 mg 11/01/19 10:00 11/02/19 09:41 Coreg - PO 6.25 mg BID [facility] Administration Donepezil HCl 10 mg 11/01/19 22:00 11/01/19 21:52 Aricept - PO 10 mg HS [facility] Administration Famotidine 20 mg 11/01/19 22:00 11/01/19 21:55 Pepcid - PO 20 mg HS [facility] Administration Insulin Aspart 1 vial 11/01/19 16:30 11/02/19 06:36 Novolog Vial Sliding Scale - SQ Not Given ACHS [facility] Protocol Insulin Detemir 10 units 11/01/19 22:00 11/01/19 22:44 Levemir Vial SQ 10 units HS [facility] Administration Isosorbide Dinitrate 20 mg 11/01/19 10:00 11/02/19 09:44 Isordil - PO 20 mg BID [facility] Administration Levothyroxine Sodium 125 mcg 11/01/19 07:00 11/02/19 06:19 Synthroid - PO 125 mcg DAILY@0700 [facility] Administration Pregabalin 75 mg 11/01/19 22:00 11/02/19 05:35 Lyrica - PO 75 mg TID [facility] Administration Vital Signs Period Temp Pulse Resp BP Sys/Palacios Pulse Ox Last 24 Hr 97.4 F-99.6 F 59-90 15-24 114-147/60-88 100 nad no jvd rrr s1s2 no mrg scattered rhonchi bl, nl eff awake alert no jaundice diaphoresis abd nt nd pos bs no jaundice diaphoresis CBC, BMP 11/01/19 11:25 11/01/19 11:25 echo 09/2019: lve, lvef 20-25%, global hk, lae, nl rv, mod mr, mod tr, mild ar , rvsp 40-50 09/19/2019 Vik 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 08/2019 10 beat run of NSVT self- terminated w/o therapy. 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 acute systolic chf, biv icd: -lvef severely reduced (?ischemic vs nicm, recently came from [place]) -has biv icd placed 2013, nl fcn when checked here last month -evidence of some vol overload with bl pleural effs, cont HD per renal for vol management -cont coreg, nitrate htn: -cont coreg, nitrate esrd: -cont hd per renal elevated trops: -borderline trop elevation with flat trend and nl ck, similar to prior baseline values, not c/w acs
--- NOTE | 2019-11-02 12:25 | PN ---
Progress Note, Physician Chief Complaint: Chest Pain Abdominal Pain/Bloating ESRD HTN Acute on Chronic CHF DM pleural effusion Hyperkalemia History of Present Illness: NAD denies any pain at the moment Heel pain when he moves his feet pain improved on Lyrica tid - Current Medication List Current Medications: Active Medications Acetaminophen (Tylenol -) 650 mg PO Q4H PRN PRN Reason: PAIN Albuterol/Ipratropium (Duoneb -) 1 amp NEB RQID [facility] Last Admin: 11/02/19 08:00 Dose: 1 amp Atorvastatin Calcium (Lipitor -) 10 mg PO [facility] Last Admin: 11/01/19 21:52 Dose: 10 mg Carvedilol (Coreg -) 6.25 mg PO BID [facility] Last Admin: 11/02/19 09:41 Dose: 6.25 mg Donepezil HCl (Aricept -) 10 mg PO [facility] Last Admin: 11/01/19 21:52 Dose: 10 mg Famotidine (Pepcid -) 20 mg PO [facility] Last Admin: 11/01/19 21:55 Dose: 20 mg Insulin Aspart (Novolog Vial Sliding Scale -) 1 vial SQ [facility]; Protocol Last Admin: 11/02/19 11:33 Dose: 4 units Insulin Detemir (Levemir Vial) 10 units SQ [facility] Last Admin: 11/01/19 22:44 Dose: 10 units Isosorbide Dinitrate (Isordil -) 20 mg PO BID [facility] Last Admin: 11/02/19 09:44 Dose: 20 mg Levothyroxine Sodium (Synthroid -) 125 mcg PO DAILY@0700 [facility] Last Admin: 11/02/19 06:19 Dose: 125 mcg Pregabalin (Lyrica -) 75 mg PO TID [facility] Last Admin: 11/02/19 05:35 Dose: 75 mg - Objective Vital Signs: Vital Signs Temperature 98.3 F 11/02/19 10:00 Pulse Rate 75 11/02/19 10:00 Respiratory Rate 18 11/02/19 10:00 Blood Pressure 139/91 11/02/19 10:00 O2 Sat by Pulse Oximetry (%) 100 11/02/19 09:00 Constitutional: Yes: Well Nourished, No Distress, Calm Cardiovascular: Yes: Regular Rate and Rhythm Respiratory: Yes: Regular, On Nasal O2, SOB Gastrointestinal: Yes: Normal Bowel Sounds, Soft Genitourinary: Yes: Oliguria Musculoskeletal: Yes: Muscle Weakness Extremities: Yes: WNL Edema: No Peripheral Pulses WNL: Yes Integumentary: Yes: Venous Stasis Changes (BL heel) Wound/Incision: Yes: Dressing Dry and Intact Neurological: Yes: Alert, Oriented Psychiatric: Yes: Alert, Oriented Labs: CBC, BMP 11/01/19 11:25 11/01/19 11:25 INR, PTT INR 1.01 (0.83-1.09) 10/31/19 15:00 Problem List - Problems (1) Hyperkalemia Assessment/Plan: -resolved Problems reviewed: Yes Code(s): E87.5 - HYPERKALEMIA (2) Pleural effusion Assessment/Plan: -Improved -HD as per renal Problems reviewed: Yes Code(s): J90 - PLEURAL EFFUSION, NOT ELSEWHERE CLASSIFIED (3) Diabetes Assessment/Plan: -BGM AC HS -ISS -Last A1c 8.1 in 09/2019 -Levemir Problems reviewed: Yes Code(s): E11.9 - TYPE 2 DIABETES MELLITUS WITHOUT COMPLICATIONS Qualifiers: Diabetes mellitus type: type 2 Chronic kidney disease stage: on chronic dialysis (4) ESRD (end stage renal disease) Assessment/Plan: -Nephrology on board -HD as per renal Problems reviewed: Yes Code(s): N18.6 - END STAGE RENAL DISEASE (5) Elevated troponin Assessment/Plan: -Seen by Cardiology -At baseline as previous, likely 2/2 to ESRD, not consistent with ACS -EKG-NSR -Echo 09/2019: LVEF 20-25%, global hyperkinesis, normal Right ventricle, mod mitral rregurg, mod tricuspid regurg, mild aortic regurg, right vent systolic pressure- 40-50 Problems reviewed: Yes Code(s): R79.89 - OTHER SPECIFIED ABNORMAL FINDINGS OF BLOOD CHEMISTRY Assessment/Plan see problem list Physical therapy
--- NOTE | 2019-11-02 18:12 | PN ---
Progress Note (short form) - Note Progress Note: 1. ESRD 2. HTN 3. fluid overload 4. DM 5. hypothyroidism 6. pleural effusion 7. hyperkalemia alert in nad Lungs clear heart reg Abd soft montender CBC, BMP 11/01/19 11:25 11/01/19 11:25 IMP ESRD maintenance schedule TTS Plan HD on Sunday
[2019-11-02] MEDS ORDERED: ACETAMINOPHEN 325 MG TABLET (FP) PO ONE (21:03)
[2019-11-02] MEDS: ATORVASTATIN CA 10 MG TABLET (FP) PO SCH (22:14)
[2019-11-02] MEDS: FAMOTIDINE 20 MG TABLET PO SCH (22:14)
[2019-11-02] MEDS: DONEPEZIL HCL 10 MG TABLET (FP) PO SCH (22:14)
[2019-11-02] MEDS: INSULIN (LEVEMIR) 100 UNITS/ML UNITS SQ SCH (22:30)
[2019-11-03 06:59] LABS: BASO % 0.7 % (0-2.0); HEMATOCRIT 29.8 % (35.4-49); HEMOGLOBIN 9.8 GM/dL (11.7-16.9); LYMPH % 31.9 % (8-40); MCH 30.9 pg (25.7-33.7); MCHC 32.7 g/dl (32.0-35.9); MEAN CELL VOLUME 94.6 fl (80-96); MEAN PLT VOLUME 9.5 fl (7.5-11.1); MONO % 10.4 % (3.8-10.2); PLATELET COUNT 67 K/MM3 (134-434); RBC 3.15 M/mm3 (4.00-5.60); RDW 17.1 % (11.9-15.9); WHITE BLOOD COUNT 4.6 K/mm3 (4.0-10.0)
[2019-11-03 07:36] LABS: ALBUMIN 2.2 g/dl (3.4-5.0); BILIRUBIN,TOTAL 0.5 mg/dL (0.2-1); BLOOD UREA NITROGEN 54.2 mg/dL (7-18); CALCIUM 7.3 mg/dL (8.5-10.1); CREATININE 4.3 mg/dL (0.55-1.3); POTASSIUM 4.8 mmol/L (3.5-5.1); TOT PROT 5.2 g/dl (6.4-8.2)
[2019-11-03] MEDS: ALBUTEROL SO4 2.5/IPRATROPIUM 0.5 INH SOL 3 ML VIAL.NEB. NEB SCH ×4 (07:40→20:25)
[2019-11-03] MEDS: INSULIN SLIDING SCALE (NOVOLOG) 1 VIAL SQ SCH ×4 (07:40→21:47)
--- NOTE | 2019-11-03 08:05 | PN ---
Progress Note, Physician Chief Complaint: AWAKE ALERT EVENTS REVIEWED C/O RIGHT FOOT PAIN SOB WITH CHF ACUTE ON CHRONIC - Current Medication List Current Medications: Active Medications Acetaminophen (Tylenol -) 650 mg PO Q4H PRN PRN Reason: PAIN Albuterol/Ipratropium (Duoneb -) 1 amp NEB RQID [facility] Last Admin: 11/02/19 21:21 Dose: 1 amp Atorvastatin Calcium (Lipitor -) 10 mg PO [facility] Last Admin: 11/02/19 22:14 Dose: 10 mg Carvedilol (Coreg -) 6.25 mg PO BID [facility] Last Admin: 11/02/19 22:14 Dose: 6.25 mg Donepezil HCl (Aricept -) 10 mg PO [facility] Last Admin: 11/02/19 22:14 Dose: 10 mg Famotidine (Pepcid -) 20 mg PO [facility] Last Admin: 11/02/19 22:14 Dose: 20 mg Insulin Aspart (Novolog Vial Sliding Scale -) 1 vial SQ [facility]; Protocol Last Admin: 11/02/19 22:30 Dose: 4 units Insulin Detemir (Levemir Vial) 10 units SQ [facility] Last Admin: 11/02/19 22:30 Dose: 10 units Isosorbide Dinitrate (Isordil -) 20 mg PO BID [facility] Last Admin: 11/02/19 22:25 Dose: 20 mg Levothyroxine Sodium (Synthroid -) 125 mcg PO DAILY@0700 [facility] Last Admin: 11/02/19 06:19 Dose: 125 mcg Pregabalin (Lyrica -) 75 mg PO TID [facility] Last Admin: 11/02/19 22:14 Dose: 75 mg - Objective Vital Signs: Vital Signs Temperature 97.6 F 11/03/19 06:00 Pulse Rate 60 11/03/19 06:00 Respiratory Rate 21 H 11/03/19 06:00 Blood Pressure 114/70 11/03/19 06:00 O2 Sat by Pulse Oximetry (%) 100 11/02/19 20:49 Constitutional: Yes: Mild Distress Cardiovascular: Yes: Regular Rate and Rhythm Respiratory: Yes: Diminished, On Nasal O2 Gastrointestinal: Yes: Soft, Distention Genitourinary: Yes: Other Musculoskeletal: Yes: Muscle Weakness Extremities: Yes: Other (RIGHT FOOT) Edema: No Wound/Incision: Yes: Dressing Dry and Intact Neurological: Yes: Pre-Existing Deficit ...Motor Strength: RLE Labs: CBC, BMP 11/03/19 05:30 11/03/19 05:30 INR, PTT INR 1.01 (0.83-1.09) 10/31/19 15:00 Problem List - Problems (1) Elevated troponin Code(s): R79.89 - OTHER SPECIFIED ABNORMAL FINDINGS OF BLOOD CHEMISTRY (2) Hyperkalemia Code(s): E87.5 - HYPERKALEMIA (3) Acute decompensated heart failure Code(s): I50.9 - HEART FAILURE, UNSPECIFIED (4) COPD (chronic obstructive pulmonary disease) Code(s): J44.9 - CHRONIC OBSTRUCTIVE PULMONARY DISEASE, UNSPECIFIED (5) Heel ulcer Code(s): L97.409 - NON-PRS CHRONIC ULCER OF UNSP HEEL AND MIDFOOT W UNSP SEVERT Qualifiers: Laterality: right (6) Pleural effusion Code(s): J90 - PLEURAL EFFUSION, NOT ELSEWHERE CLASSIFIED (7) Right foot pain Code(s): M79.671 - PAIN IN RIGHT FOOT (8) Biventricular ICD (implantable cardioverter-defibrillator) in place Code(s): Z95.810 - PRESENCE OF AUTOMATIC (IMPLANTABLE) CARDIAC DEFIBRILLATOR (9) Cardiomyopathy Code(s): I42.9 - CARDIOMYOPATHY, UNSPECIFIED Qualifiers: (10) Diabetes Code(s): E11.9 - TYPE 2 DIABETES MELLITUS WITHOUT COMPLICATIONS Qualifiers: Diabetes mellitus type: type 2 Chronic kidney disease stage: on chronic dialysis (11) ESRD (end stage renal disease) Code(s): N18.6 - END STAGE RENAL DISEASE (12) Hypothyroid Code(s): E03.9 - HYPOTHYROIDISM, UNSPECIFIED Qualifiers: Hypothyroidism type: unspecified Qualified Code(s): E03.9 - Hypothyroidism , unspecified Assessment/Plan IN ICU MONITORING CARDIAC FUNCTION CARDIOLOGY EVAL APPRECIATED ESRD NEPHROLOGY EVAL APPRECIATED PODIATRY EVAL FOOT/HEEL CARDIOLOGY EVAL MAY NEED DIURESIS OOB TO CHAIR
[2019-11-03] MEDS ORDERED: ACETAMINOPHEN 325 MG TABLET (FP) PO PRN (08:20)
--- NOTE | 2019-11-03 09:23 | CONSULT ---
Consult Consult Specialty:: Podiatry Reason for Consultation:: Necrotic patch and celulitis right heel. - History of Present Illness Chief Complaint: wound right heel. 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 Cardio/Vascular: Yes: CHF, HTN, Other ([employer]ER-D) Pulmonary: Yes: Bronchitis, COPD, Pneumonia Renal/: Yes: Renal Failure, Hemodialysis Musculoskeletal: Yes: Other (Right plantarmedial heel with deep tissue injury , underlying hematoma which as now opened and draining, no erythema, pain on palpatin noted, no streaking, no edema, no bone exposed) Endocrine: Yes: Diabetes Insipidus - Past Surgical History Past Surgical History: Yes: Cholecystectomy, Permanent Pacemaker - Alcohol/Substance Use Hx Alcohol Use: No - Smoking History Smoking history: Never smoked Have you smoked in the past 12 months: No - Social History Usual Living Arrangement: Half-Way ADL: Support Services History of Recent Travel: No Home Medications - Allergies Allergies/Adverse Reactions: Allergies Allergy/AdvReac Type Severity Reaction Status Date / Time No Known Allergies Allergy Verified 10/09/19 13:17 - Home Medications Home Medications: Ambulatory Orders Acetaminophen [Pain Relief] 650 mg PO PRN 10/20/19 Donepezil HCl [Aricept] 10 mg PO HS 10/20/19 Famotidine [Acid Controller] 20 mg PO BID 10/20/19 Insulin Detemir [Levemir Flextouch] 10 unit SCJ HS 10/20/19 Ipratropium/Albuterol Sulfate [Iprat-Albut 0.5-3(2.5) mg/3 ml] 1 tube NEB QID Isosorbide Dinitrate [Isordil] 20 mg PO BID 10/20/19 Levothyroxine Sodium [Levoxyl] 125 mcg PO DAILY 10/20/19 Pregabalin [Lyrica -] 75 mg PO DAILY 10/20/19 Atorvastatin Ca [Lipitor] 10 mg PO HS 10/31/19 Carvedilol 6.25 mg PO DAILY 10/31/19 Insulin Sliding Scale [Novolog Vial Sliding Scale -] 0 units SQ [facility] 10/31/19 Physical Exam Vital Signs: Vital Signs Temperature 97.6 F 11/03/19 06:00 Pulse Rate 60 11/03/19 06:00 Respiratory Rate 21 H 11/03/19 06:00 Blood Pressure 114/70 11/03/19 06:00 O2 Sat by Pulse Oximetry (%) 100 11/02/19 20:49 Extremities: Yes: Other (palpable pulsesb/l feet, +eschar with celulitis right heel,) Labs: CBC, BMP 11/03/19 05:30 11/03/19 05:30 Assessment/Plan cellulitis right heel eschar with wound Vascular consult. Santyl to right heel wound. Heel ofloading b/l pillow under calf. Will follow may need debridement. Abx as per ID c consultant.
[2019-11-03] MEDS: CARVEDILOL 6.25 MG TABLET (FP) PO SCH ×2 (09:59→21:46)
[2019-11-03] MEDS ORDERED: PT OWN MED DRAWER 7, Y5N ONE ×3 (10:02→21:37)
[2019-11-03] MEDS: ISOSORBIDE DINITRATE 20 MG TABLET (FP) PO SCH ×2 (10:04→21:46)
--- NOTE | 2019-11-03 10:38 | PN ---
Progress Note (short form) - Note Progress Note: s: no cp palps dizzy, sob less Current Medications Generic Name Dose Route Start Last Admin Trade Name Freq PRN Reason Stop Dose Admin Acetaminophen 650 mg 11/03/19 08:20 Tylenol - PO Q4H PRN PAIN 1-3 Albuterol/Ipratropium 1 amp 11/01/19 13:15 11/03/19 07:40 Duoneb - NEB 1 amp RQID [facility] Administration Atorvastatin Calcium 10 mg 11/01/19 22:00 11/02/19 22:14 Lipitor - PO 10 mg HS [facility] Administration Carvedilol 6.25 mg 11/01/19 10:00 11/03/19 09:59 Coreg - PO 6.25 mg BID [facility] Administration Donepezil HCl 10 mg 11/01/19 22:00 11/02/19 22:14 Aricept - PO 10 mg HS [facility] Administration Famotidine 20 mg 11/01/19 22:00 11/02/19 22:14 Pepcid - PO 20 mg HS [facility] Administration Insulin Aspart 1 vial 11/01/19 16:30 11/03/19 07:40 Novolog Vial Sliding Scale - SQ Not Given ACHS [facility] Protocol Insulin Detemir 10 units 11/01/19 22:00 11/02/19 22:30 Levemir Vial SQ 10 units HS [facility] Administration Isosorbide Dinitrate 20 mg 11/01/19 10:00 11/03/19 10:04 Isordil - PO 20 mg BID [facility] Administration Levothyroxine Sodium 125 mcg 11/01/19 07:00 11/02/19 06:19 Synthroid - PO 125 mcg DAILY@0700 [facility] Administration Pregabalin 75 mg 11/01/19 22:00 11/02/19 22:14 Lyrica - PO 75 mg TID [facility] Administration Vital Signs Period Temp Pulse Resp BP Sys/Palacios Pulse Ox Last 24 Hr 97.6 F-100.4 F 60-86 18-25 114-145/70-87 100-100 nad no jvd rrr s1s2 no mrg scattered rhonchi bl, nl eff awake alert no jaundice diaphoresis abd nt nd pos bs no jaundice diaphoresis 11/03/19 05:30 11/03/19 05:30 echo 09/2019: lve, lvef 20-25%, global hk, lae, nl rv, mod mr, mod tr, mild ar , rvsp 40-50 09/19/2019 [employer] 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 08/2019 10 beat run of NSVT self- terminated w/o therapy. echo 08/2019 Moderate dilated with severely decreased LVEF 20-25%, preserved wall motion at base, rest of segments severely HK, mod-severe MR, mild TR, pacemaker RV, mild-mod AR, mild ao dilatation 4.1 cm cta chest: no diss/aneurysm, mod bl effs ecg: sr, as-second vp hr assessment tele: sr, as second vp hr assessment a/p: 69 m hx dementia, htn, dm, syst chf s/p [place] biv icd, esrd on hd, here with sob. acute systolic chf, biv icd: -lvef severely reduced (?ischemic vs nicm, recently came from [place]) -has biv icd placed 2013, nl fcn when checked here last month -evidence of some vol overload with bl pleural effs, cont HD per renal for vol management -cont coreg, nitrate htn: -cont coreg, nitrate esrd: -cont hd per renal elevated trops: -borderline trop elevation with flat trend and nl ck, similar to prior baseline values, not c/w acs
--- NOTE | 2019-11-03 11:50 | CONSULT ---
- Consultation REQUESTING PROVIDER: CONSULT REQUEST: We have been asked to surgically evaluate this patient for We have been asked to surgically evaluate this patient for right heel ulcer. PCP:Harvinder Chiang MD HISTORY OF PRESENT ILLNESS: 69 yo male with a h/o DM, ERSD on HD, recent admission for RLE wound, as well as cholecystectomy (09/17/19) presenting to ED from [place] for chest pain, SOB, abdominal fluid and bloating. Recently admitted from 10/03/19-10/17/19 for fever secondary to pneumonia and discharged on Ceftin, CHF with severely reduced LVE PMHx: HTN, DM, CHF, ESRD PSHx: lap jody 09/18, s/p permacath Home Medications Medication Instructions Recorded Acetaminophen [Pain Relief] 650 mg PO PRN 10/20/19 Donepezil HCl [Aricept] 10 mg PO HS 10/20/19 Famotidine [Acid Controller] 20 mg PO BID 10/20/19 Insulin Detemir [Levemir Flextouch] 10 unit SCJ HS 10/20/19 Ipratropium/Albuterol Sulfate 1 tube NEB QID 10/20/19 [Iprat-Albut 0.5-3(2.5) mg/3 ml] Isosorbide Dinitrate [Isordil] 20 mg PO BID 10/20/19 Levothyroxine Sodium [Levoxyl] 125 mcg PO DAILY 10/20/19 Pregabalin [Lyrica -] 75 mg PO DAILY 10/20/19 Atorvastatin Ca [Lipitor] 10 mg PO HS 10/31/19 Carvedilol 6.25 mg PO DAILY 10/31/19 Insulin Sliding Scale [Novolog 0 units SQ ACHS 10/31/19 Vial Sliding Scale -] Allergies Allergy/AdvReac Type Severity Reaction Status Date / Time No Known Allergies Allergy Verified 10/09/19 13:17 REVIEW OF SYSTEMS: unable to obtain, pt lethargic PHYSICAL EXAM: GENERAL: Arousable but lethargic HEAD: Normal with no signs of trauma. LUNGS: unlabored resp on RA. HEART: Regular rate and rhythm. LOWER EXTREMITIES: 2+ DP/PT pulses with doppler, warm, well-perfused. No calf tenderness. No peripheral edema. B/l feet with dry skin. Right heel with 3x2 cm eschar, no erythema or drainage noted, no bogginess with surrounding erythema and diffuse tenderness to palpation. + foul odor noted. NEUROLOGICAL: Normal speech, gait not observed. PSYCH: Cooperative. Good eye contact. Appropriate mood and affect. Vital Signs Temp 97.6 F 11/03/19 06:00 Pulse 60 11/03/19 06:00 Resp 21 H 11/03/19 06:00 BP 114/70 11/03/19 06:00 Pulse Ox 100 11/02/19 20:49 Intake & Output 11/02/19 11/02/19 11/03/19 11:59 23:59 11:59 Intake Total 280 240 540 Output Total 600 Balance 280 -360 540 Weight 167 lb 6 oz 167 lb 175 lb 1.6 oz Intake: IVPB 120 0 Oral 160 240 540 Output: Urine 600 Void 600 Other: Voiding Method Urinal Incontinent Urinal # Unmeasured Voids Void 2 3 Bowel Movement No No Height 5 ft 9 in Body Mass Index (BMI) 24.6 Weight Measurement Method Built in Bedscale Built in Bedscale CBC, BMP 11/03/19 05:30 11/03/19 05:30 Problem List - Problems (1) Heel ulcer Assessment/Plan: Right heel ulcer with celllulitis/infection, and no indication for vascular intervention at this time. -defer all foot wound care to podiatry -okay to proceed with debridement as needed. -right heel ulcer with off loading (heel protectors) when not oob to chair -Recommend PT -Iv ABX per ID -f/u with Dr. Fitzgerald as out patient. Evaluation and plan discussed with Dr Fitzgerald. Code(s): L97.409 - NON-PRS CHRONIC ULCER OF UNSP HEEL AND MIDFOOT W UNSP SEVERT Qualifiers: Laterality: right
[2019-11-03] MEDS: LEVOTHYROXINE NA 125 MCG TABLET (FP) PO SCH (12:01)
[2019-11-03] MEDS: COLLAGENASE CLOSTRIDIUM HIST. 30 GRAMS TUBE TP SCH (12:02)
--- NOTE | 2019-11-03 12:35 | PN ---
Progress Note (short form) - Note Progress Note: ID CONSULT DICTATED NECROTIC R HEEL ULCER CELLULITIS R FOOT ESRD OBTAIN BC, ESR, CRP EMPIRIC UNASYN/ VANCOMYCIN ADJUSTED FOR ESRD
[2019-11-03] MEDS ORDERED: VANCOMYCIN 1 GRAM (PRE-DOCKED) 1,000 MG/250 ML BAG IVPB SCH (12:45)
--- NOTE | 2019-11-03 13:34 | CONS ---
INFECTIOUS DISEASE CONSULTATION DATE OF CONSULTATION: DATE OF DICTATION: 11/03/2019 HISTORY: The patient is a 69-year-old male who is evaluated for cellulitis of the right heel. He has a history of end-stage renal disease on dialysis. He was admitted to the hospital from the residential on October 31, 2019, with complaints of chest and back pain after straining on the toilet. He was evaluated in the emergency room. A CAT scan of the chest was performed that showed bilateral pleural effusions with atelectasis. He was admitted to telemetry unit and suspected of having fluid overload. He was noted to have a necrotic ulceration on the right heel with surrounding erythema. This has been present for some time. On review of the notes, he did have that ulcer dating back to late last year. He was hospitalized in September 2019, for treatment of pneumonia. He complains of right heel pain. He denies any purulent drainage. He was seen in consultation by Podiatry. Debridement is being considered. He denies any associated fever or chills. On review of cultures, no prior history of multidrug-resistant organisms. PAST MEDICAL HISTORY: Positive for end-stage renal disease on hemodialysis, hypertension, congestive heart failure, insulin-dependent diabetes mellitus, COPD. PAST SURGICAL HISTORY: Status post permanent pacemaker and cholecystectomy. ALLERGIES: No known allergies. MEDICATIONS: Lyrica, Coreg, Pepcid, Lipitor, Aricept. SOCIAL HISTORY: He lives in the residential. Nonsmoker, nondrinker. SYSTEMS REVIEW: Neurologic: No loss of consciousness, seizure activity, or focal weakness. Cardiac: Negative chest pain or palpitations. Respiratory: Negative cough or sputum production. Gastrointestinal: Negative vomiting or diarrhea. Genitourinary: End-stage renal disease on hemodialysis. LABORATORY DATA: White count 4.6, hematocrit 29.8, platelets 67, creatinine 4.3. Urinalysis, 7 white cells. PHYSICAL EXAMINATION: General: He is awake and alert. He is not acutely toxic appearing. Vital Signs: Temperature 97.6, blood pressure 114/70, pulse 60 regular, respirations 21 per minute. HEENT: Sclerae anicteric. Heart: Sounds S1, S2. Lungs: Clear. Abdomen: Soft and nontender. Extremities: Examination of the right foot, there is a 3-cm x 1.5-cm necrotic ulceration with dry, black eschar. There is surrounding erythema extending to the area of the calcaneus and the plantar aspect of the foot. There is no expressible pus. No crepitus or fluctuance. IMPRESSION: 1. Necrotic right diabetic heel ulcer. 2. Cellulitis of the right foot. 3. End-stage renal disease on hemodialysis. 4. Thrombocytopenia. PLAN: Obtain blood cultures. C-reactive protein sedimentation rate. X-ray of the foot. There does not appear to be any drainage for culture. We will empirically cover with vancomycin and Unasyn adjusted for renal failure. Local wound care. Podiatry follow up. Thank you for the kind referral. VENKATESH GATES M.D. MICHEAL/[id number]
--- NOTE | 2019-11-03 14:16 | PN ---
Progress Note, Physician History of Present Illness: Pt seen and examined at bedside. He is awake and alert. - Current Medication List Current Medications: Active Medications Acetaminophen (Tylenol -) 650 mg PO Q4H PRN PRN Reason: PAIN 1-3 Albuterol/Ipratropium (Duoneb -) 1 amp NEB RQID [facility] Last Admin: 11/03/19 11:20 Dose: 1 amp Atorvastatin Calcium (Lipitor -) 10 mg PO [facility] Last Admin: 11/02/19 22:14 Dose: 10 mg Carvedilol (Coreg -) 6.25 mg PO BID [facility] Last Admin: 11/03/19 09:59 Dose: 6.25 mg Collagenase (Santyl -) 1 applic TP DAILY [facility]; Protocol Last Admin: 11/03/19 12:02 Dose: 1 applic Donepezil HCl (Aricept -) 10 mg PO [facility] Last Admin: 11/02/19 22:14 Dose: 10 mg Famotidine (Pepcid -) 20 mg PO [facility] Last Admin: 11/02/19 22:14 Dose: 20 mg Vancomycin HCl (Vancomycin (Pre-Docked)) 1,000 mg in 250 mls @ 200 mls/hr IVPB Q24H [facility]; Protocol Stop: 11/04/19 12:44 Ampicillin Sodium/Sulbactam (Sodium 3 gm/ Sodium Chloride) 100 mls @ 200 mls/ hr IVPB DAILY [facility] Insulin Aspart (Novolog Vial Sliding Scale -) 1 vial SQ ACHS [facility]; Protocol Last Admin: 11/03/19 07:40 Dose: Not Given Insulin Detemir (Levemir Vial) 10 units SQ [facility] Last Admin: 11/02/19 22:30 Dose: 10 units Isosorbide Dinitrate (Isordil -) 20 mg PO BID [facility] Last Admin: 11/03/19 10:04 Dose: 20 mg Levothyroxine Sodium (Synthroid -) 125 mcg PO DAILY@0700 [facility] Last Admin: 11/03/19 12:01 Dose: 125 mcg Pregabalin (Lyrica -) 75 mg PO TID [facility] Last Admin: 11/02/19 22:14 Dose: 75 mg - Objective Vital Signs: Vital Signs Temperature 97.4 F L 11/03/19 10:00 Pulse Rate 62 11/03/19 10:00 Respiratory Rate 21 H 11/03/19 10:00 Blood Pressure 108/57 L 11/03/19 10:00 O2 Sat by Pulse Oximetry (%) 100 11/03/19 10:00 Constitutional: Yes: Calm Eyes: Yes: Conjunctiva Clear HENT: Yes: Atraumatic Neck: Yes: Supple Cardiovascular: Yes: S1, S2 Respiratory: Yes: CTA Bilaterally, On Nasal O2 Gastrointestinal: Yes: Normal Bowel Sounds, Soft Genitourinary: Yes: WNL Musculoskeletal: Yes: WNL Edema: Yes Edema: LLE: Trace, RLE: Trace Neurological: Yes: Oriented Psychiatric: Yes: Oriented Labs: CBC, BMP 11/03/19 05:30 11/03/19 05:30 INR, PTT INR 1.01 (0.83-1.09) 10/31/19 15:00 Problem List - Problems (1) Acute decompensated heart failure Code(s): I50.9 - HEART FAILURE, UNSPECIFIED (2) Pleural effusion Code(s): J90 - PLEURAL EFFUSION, NOT ELSEWHERE CLASSIFIED (3) ESRD (end stage renal disease) Code(s): N18.6 - END STAGE RENAL DISEASE Assessment/Plan Current Medications Generic Name Dose Route Start Last Admin Trade Name Freq PRN Reason Stop Dose Admin Acetaminophen 650 mg 11/03/19 08:20 Tylenol - PO Q4H PRN PAIN 1-3 Albuterol/Ipratropium 1 amp 11/01/19 13:15 11/03/19 11:20 Duoneb - NEB 1 amp RQID [facility] Administration Atorvastatin Calcium 10 mg 11/01/19 22:00 11/02/19 22:14 Lipitor - PO 10 mg HS [facility] Administration Carvedilol 6.25 mg 11/01/19 10:00 11/03/19 09:59 Coreg - PO 6.25 mg BID [facility] Administration Collagenase 1 applic 11/03/19 10:45 11/03/19 12:02 Santyl - TP 1 applic DAILY [facility] Administration Protocol Donepezil HCl 10 mg 11/01/19 22:00 11/02/19 22:14 Aricept - PO 10 mg HS [facility] Administration Famotidine 20 mg 11/01/19 22:00 11/02/19 22:14 Pepcid - PO 20 mg HS [facility] Administration Vancomycin HCl 1,000 mg in 250 mls @ 200 mls/hr 11/03/19 12:45 Vancomycin (Pre-Docked) IVPB 11/04/19 12:44 Q24H [facility] Protocol Ampicillin Sodium/Sulbactam 100 mls @ 200 mls/hr 11/03/19 12:45 Sodium 3 gm/ Sodium Chloride IVPB DAILY [facility] Insulin Aspart 1 vial 11/01/19 16:30 11/03/19 07:40 Novolog Vial Sliding Scale - SQ Not Given ACHS [facility] Protocol Insulin Detemir 10 units 11/01/19 22:00 11/02/19 22:30 Levemir Vial SQ 10 units HS [facility] Administration Isosorbide Dinitrate 20 mg 11/01/19 10:00 11/03/19 10:04 Isordil - PO 20 mg BID [facility] Administration Levothyroxine Sodium 125 mcg 11/01/19 07:00 11/03/19 12:01 Synthroid - PO 125 mcg DAILY@0700 [facility] Administration Pregabalin 75 mg 11/01/19 22:00 11/02/19 22:14 Lyrica - PO 75 mg TID [facility] Administration Impression 1. ESRD 2. HTN 3. fluid overload 4. DM 5. hypothyroidism 6. pleural effusion 7. hyperkalemia Plan - HD tomorrow - volume status improved - monitor lytes - renal diet with fluid restriction
[2019-11-03] MEDS: PREGABALIN 75 MG CAPSULE PO SCH (14:28)
[2019-11-03] MEDS: AMPICILLIN NA/SULBACTAM NA 3 GM in SODIUM CHLORIDE 100 ML IVPB SCH (16:51)
[2019-11-03] MEDS: ATORVASTATIN CA 10 MG TABLET (FP) PO SCH (21:46)
[2019-11-03] MEDS: DONEPEZIL HCL 10 MG TABLET (FP) PO SCH (21:46)
[2019-11-03] MEDS: FAMOTIDINE 20 MG TABLET PO SCH (21:47)
[2019-11-03] MEDS: PREGABALIN 50 MG CAPSULE PO SCH (21:47)
[2019-11-03] MEDS: INSULIN (LEVEMIR) 100 UNITS/ML UNITS SQ SCH (21:48)
[2019-11-04] MEDS: INSULIN SLIDING SCALE (NOVOLOG) 1 VIAL SQ SCH ×4 (06:07→21:51)
[2019-11-04] MEDS: LEVOTHYROXINE NA 125 MCG TABLET (FP) PO SCH (06:07)
[2019-11-04] MEDS ORDERED: EPOETIN ALFA 3,000 UNIT, EPOETIN ALFA 2,000 UNIT IVPUSH ONE (07:45)
--- NOTE | 2019-11-04 08:54 | PN ---
Progress Note, Physician Chief Complaint: ASLEEP MILD DISTRESS PO INTAKE TOLERATED - Current Medication List Current Medications: Active Medications Acetaminophen (Tylenol -) 650 mg PO Q4H PRN PRN Reason: PAIN 1-3 Albuterol/Ipratropium (Duoneb -) 1 amp NEB RQID [facility] Last Admin: 11/03/19 20:25 Dose: 1 amp Atorvastatin Calcium (Lipitor -) 10 mg PO [facility] Last Admin: 11/03/19 21:46 Dose: 10 mg Carvedilol (Coreg -) 6.25 mg PO BID [facility] Last Admin: 11/03/19 21:46 Dose: 6.25 mg Collagenase (Santyl -) 1 applic TP DAILY [facility]; Protocol Last Admin: 11/03/19 12:02 Dose: 1 applic Donepezil HCl (Aricept -) 10 mg PO [facility] Last Admin: 11/03/19 21:46 Dose: 10 mg Famotidine (Pepcid -) 20 mg PO [facility] Last Admin: 11/03/19 21:47 Dose: 20 mg Heparin Sodium (Porcine) (Heparin -) 1,000 unit IVPUSH ONCE ONE Stop: 11/04/19 14:18 Vancomycin HCl (Vancomycin (Pre-Docked)) 1,000 mg in 250 mls @ 200 mls/hr IVPB Q24H [facility]; Protocol Stop: 11/04/19 12:44 Last Admin: 11/03/19 14:28 Dose: 200 mls/hr Ampicillin Sodium/Sulbactam (Sodium 3 gm/ Sodium Chloride) 100 mls @ 200 mls/ hr IVPB DAILY [facility] Last Admin: 11/03/19 16:51 Dose: 200 mls/hr Sodium Chloride (Normal Saline -) 250 mls @ 3,000 mls/hr IV PRN PRN PRN Reason: Hypotension during Dialysis Stop: 11/04/19 14:17 Insulin Aspart (Novolog Vial Sliding Scale -) 1 vial SQ [facility]; Protocol Last Admin: 11/04/19 06:07 Dose: Not Given Insulin Detemir (Levemir Vial) 10 units SQ [facility] Last Admin: 11/03/19 21:48 Dose: 10 units Isosorbide Dinitrate (Isordil -) 20 mg PO BIDISORDIL [facility] Levothyroxine Sodium (Synthroid -) 125 mcg PO DAILY@0700 [facility] Last Admin: 11/04/19 06:07 Dose: 125 mcg Pregabalin (Lyrica -) 50 mg PO BID [facility] Last Admin: 11/03/19 21:47 Dose: 50 mg - Objective Vital Signs: Vital Signs Temperature 98.2 F 11/04/19 04:00 Pulse Rate 65 11/04/19 08:00 Respiratory Rate 19 11/04/19 08:00 Blood Pressure 119/67 11/04/19 08:00 O2 Sat by Pulse Oximetry (%) 100 11/03/19 22:00 Constitutional: Yes: Mild Distress Cardiovascular: Yes: Regular Rate and Rhythm Respiratory: Yes: Diminished Gastrointestinal: Yes: Distention Musculoskeletal: Yes: Muscle Weakness Extremities: Yes: Other (B/L HEEL NECROTIC PATCHES) Edema: No Integumentary: Yes: Other Wound/Incision: Yes: Dressing Dry and Intact Neurological: Yes: Pre-Existing Deficit ...Motor Strength: LLE, RLE Psychiatric: Yes: WNL Labs: INR, PTT INR 1.01 (0.83-1.09) 10/31/19 15:00 Problem List - Problems (1) Elevated troponin Code(s): R79.89 - OTHER SPECIFIED ABNORMAL FINDINGS OF BLOOD CHEMISTRY (2) Hyperkalemia Code(s): E87.5 - HYPERKALEMIA (3) Acute decompensated heart failure Code(s): I50.9 - HEART FAILURE, UNSPECIFIED (4) COPD (chronic obstructive pulmonary disease) Code(s): J44.9 - CHRONIC OBSTRUCTIVE PULMONARY DISEASE, UNSPECIFIED (5) Heel ulcer Code(s): L97.409 - NON-PRS CHRONIC ULCER OF UNSP HEEL AND MIDFOOT W UNSP SEVERT Qualifiers: Laterality: right (6) Pleural effusion Code(s): J90 - PLEURAL EFFUSION, NOT ELSEWHERE CLASSIFIED (7) Right foot pain Code(s): M79.671 - PAIN IN RIGHT FOOT (8) Biventricular ICD (implantable cardioverter-defibrillator) in place Code(s): Z95.810 - PRESENCE OF AUTOMATIC (IMPLANTABLE) CARDIAC DEFIBRILLATOR (9) Cardiomyopathy Code(s): I42.9 - CARDIOMYOPATHY, UNSPECIFIED Qualifiers: (10) Diabetes Code(s): E11.9 - TYPE 2 DIABETES MELLITUS WITHOUT COMPLICATIONS Qualifiers: Diabetes mellitus type: type 2 Chronic kidney disease stage: on chronic dialysis (11) ESRD (end stage renal disease) Code(s): N18.6 - END STAGE RENAL DISEASE (12) Hypothyroid Code(s): E03.9 - HYPOTHYROIDISM, UNSPECIFIED Qualifiers: Hypothyroidism type: unspecified Qualified Code(s): E03.9 - Hypothyroidism , unspecified (13) 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 ID DOSING VANCOMYCIN IV ABX TX WITH ESRD
[2019-11-04] MEDS: ALBUTEROL SO4 2.5/IPRATROPIUM 0.5 INH SOL 3 ML VIAL.NEB. NEB SCH ×4 (09:00→20:48)
[2019-11-04 09:11] LABS: HEMATOCRIT 29.2 % (35.4-49); HEMOGLOBIN 9.5 GM/dL (11.7-16.9); MCH 30.9 pg (25.7-33.7); MCHC 32.5 g/dl (32.0-35.9); MEAN CELL VOLUME 95.2 fl (80-96); MEAN PLT VOLUME 9.3 fl (7.5-11.1); PLATELET COUNT 66 K/MM3 (134-434); RBC 3.07 M/mm3 (4.00-5.60); RDW 16.9 % (11.9-15.9); WHITE BLOOD COUNT 4.6 K/mm3 (4.0-10.0)
[2019-11-04 09:19] LABS: BLOOD UREA NITROGEN 65.4 mg/dL (7-18); CALCIUM 7.2 mg/dL (8.5-10.1); POTASSIUM 4.4 mmol/L (3.5-5.1)
[2019-11-04] MEDS ORDERED: PT OWN MED DRAWER 7, Y5N ONE (09:19)
[2019-11-04] MEDS ORDERED: SODIUM CHLORIDE 250 ML IV PRN (10:44)
[2019-11-04] MEDS ORDERED: HEPARIN NA (PORCINE) 5,000 UNITS/ML 1ML VIAL IVPUSH ONE (10:45)
[2019-11-04] MEDS: PREGABALIN 50 MG CAPSULE PO SCH ×2 (10:50→21:39)
[2019-11-04] MEDS: CARVEDILOL 6.25 MG TABLET (FP) PO SCH ×2 (10:50→21:38)
[2019-11-04] MEDS: ISOSORBIDE DINITRATE 20 MG TABLET (FP) PO SCH ×2 (10:50→18:40)
[2019-11-04] MEDS: AMPICILLIN NA/SULBACTAM NA 3 GM in SODIUM CHLORIDE 100 ML IVPB SCH (10:51)
[2019-11-04] MEDS: COLLAGENASE CLOSTRIDIUM HIST. 30 GRAMS TUBE TP SCH (10:55)
--- NOTE | 2019-11-04 11:30 | PN ---
Progress Note, Physician History of Present Illness: Pt seen and examined at bedside. He is awake and alert. He is tolerating HD. - Current Medication List Current Medications: Active Medications Acetaminophen (Tylenol -) 650 mg PO Q4H PRN PRN Reason: PAIN 1-3 Albuterol/Ipratropium (Duoneb -) 1 amp NEB RQID [facility] Last Admin: 11/04/19 09:00 Dose: 1 amp Atorvastatin Calcium (Lipitor -) 10 mg PO [facility] Last Admin: 11/03/19 21:46 Dose: 10 mg Carvedilol (Coreg -) 6.25 mg PO BID [facility] Last Admin: 11/04/19 10:50 Dose: 6.25 mg Collagenase (Santyl -) 1 applic TP DAILY [facility]; Protocol Last Admin: 11/04/19 10:55 Dose: 1 applic Donepezil HCl (Aricept -) 10 mg PO [facility] Last Admin: 11/03/19 21:46 Dose: 10 mg Famotidine (Pepcid -) 20 mg PO [facility] Last Admin: 11/03/19 21:47 Dose: 20 mg Vancomycin HCl (Vancomycin (Pre-Docked)) 1,000 mg in 250 mls @ 200 mls/hr IVPB Q24H [facility]; Protocol Stop: 11/04/19 12:44 Last Admin: 11/03/19 14:28 Dose: 200 mls/hr Ampicillin Sodium/Sulbactam (Sodium 3 gm/ Sodium Chloride) 100 mls @ 200 mls/ hr IVPB DAILY [facility] Last Admin: 11/04/19 10:51 Dose: 200 mls/hr Sodium Chloride (Normal Saline -) 250 mls @ 3,000 mls/hr IV PRN PRN PRN Reason: Hypotension during Dialysis Stop: 11/05/19 10:43 Insulin Aspart (Novolog Vial Sliding Scale -) 1 vial SQ [facility]; Protocol Last Admin: 11/04/19 06:07 Dose: Not Given Insulin Detemir (Levemir Vial) 10 units SQ [facility] Last Admin: 11/03/19 21:48 Dose: 10 units Isosorbide Dinitrate (Isordil -) 20 mg PO BIDISORDIL [facility] Last Admin: 11/04/19 10:50 Dose: 20 mg Levothyroxine Sodium (Synthroid -) 125 mcg PO DAILY@0700 [facility] Last Admin: 11/04/19 06:07 Dose: 125 mcg Pregabalin (Lyrica -) 50 mg PO BID [facility] Last Admin: 11/04/19 10:50 Dose: 50 mg - Objective Vital Signs: Vital Signs Temperature 98.2 F 11/04/19 07:00 Pulse Rate 70 11/04/19 10:50 Respiratory Rate 16 11/04/19 10:50 Blood Pressure 127/68 11/04/19 10:50 O2 Sat by Pulse Oximetry (%) 100 11/03/19 22:00 Constitutional: Yes: Calm Eyes: Yes: Conjunctiva Clear HENT: Yes: Atraumatic Neck: Yes: Supple Cardiovascular: Yes: S1, S2 Respiratory: Yes: CTA Bilaterally, On Nasal O2 Gastrointestinal: Yes: Normal Bowel Sounds, Soft Genitourinary: Yes: WNL Musculoskeletal: Yes: WNL Edema: No Neurological: Yes: Oriented Psychiatric: Yes: Oriented Labs: CBC, BMP 11/04/19 07:00 11/04/19 07:00 INR, PTT INR 1.01 (0.83-1.09) 10/31/19 15:00 Problem List - Problems (1) Acute decompensated heart failure Code(s): I50.9 - HEART FAILURE, UNSPECIFIED (2) Pleural effusion Code(s): J90 - PLEURAL EFFUSION, NOT ELSEWHERE CLASSIFIED (3) ESRD (end stage renal disease) Code(s): N18.6 - END STAGE RENAL DISEASE Assessment/Plan Current Medications Generic Name Dose Route Start Last Admin Trade Name Freq PRN Reason Stop Dose Admin Acetaminophen 650 mg 11/03/19 08:20 Tylenol - PO Q4H PRN PAIN 1-3 Albuterol/Ipratropium 1 amp 11/01/19 13:15 11/04/19 09:00 Duoneb - NEB 1 amp RQID [facility] Administration Atorvastatin Calcium 10 mg 11/01/19 22:00 11/03/19 21:46 Lipitor - PO 10 mg HS [facility] Administration Carvedilol 6.25 mg 11/01/19 10:00 11/04/19 10:50 Coreg - PO 6.25 mg BID [facility] Administration Collagenase 1 applic 11/03/19 10:45 11/04/19 10:55 Santyl - TP 1 applic DAILY [facility] Administration Protocol Donepezil HCl 10 mg 11/01/19 22:00 11/03/19 21:46 Aricept - PO 10 mg HS [facility] Administration Famotidine 20 mg 11/01/19 22:00 11/03/19 21:47 Pepcid - PO 20 mg HS [facility] Administration Vancomycin HCl 1,000 mg in 250 mls @ 200 mls/hr 11/03/19 12:45 11/03/19 14:28 Vancomycin (Pre-Docked) IVPB 11/04/19 12:44 200 mls/hr Q24H [facility] Administration Protocol Ampicillin Sodium/Sulbactam 100 mls @ 200 mls/hr 11/03/19 12:45 11/04/19 10: 51 Sodium 3 gm/ Sodium Chloride IVPB 200 mls/hr DAILY [facility] Administration Sodium Chloride 250 mls @ 3,000 mls/hr 11/04/19 10:44 Normal Saline - IV 11/05/19 10:43 PRN PRN Hypotension during Dialysis Insulin Aspart 1 vial 11/01/19 16:30 11/04/19 06:07 Novolog Vial Sliding Scale - SQ Not Given ACHS [facility] Protocol Insulin Detemir 10 units 11/01/19 22:00 11/03/19 21:48 Levemir Vial SQ 10 units HS [facility] Administration Isosorbide Dinitrate 20 mg 11/04/19 10:00 11/04/19 10:50 Isordil - PO 20 mg BIDISORDIL [facility] Administration Levothyroxine Sodium 125 mcg 11/01/19 07:00 11/04/19 06:07 Synthroid - PO 125 mcg DAILY@0700 [facility] Administration Pregabalin 50 mg 11/03/19 22:00 11/04/19 10:50 Lyrica - PO 50 mg BID [facility] Administration Impression 1. ESRD 2. HTN 3. fluid overload 4. DM 5. hypothyroidism 6. pleural effusion 7. hyperkalemia Plan - HD today - pt tolerating - volume status improving - renal diet - titrate down dose of lyrica
--- NOTE | 2019-11-04 11:44 | PN ---
Progress Note (short form) - Note Progress Note: s: dyspnea improving. no cp palps dizzy Current Medications Acetaminophen (Tylenol -) 650 mg PO Q4H PRN PRN Reason: PAIN 1-3 Albuterol/Ipratropium (Duoneb -) 1 amp NEB RQID [facility] Last Admin: 11/04/19 09:00 Dose: 1 amp Atorvastatin Calcium (Lipitor -) 10 mg PO [facility] Last Admin: 11/03/19 21:46 Dose: 10 mg Carvedilol (Coreg -) 6.25 mg PO BID [facility] Last Admin: 11/04/19 10:50 Dose: 6.25 mg Collagenase (Santyl -) 1 applic TP DAILY [facility]; Protocol Last Admin: 11/04/19 10:55 Dose: 1 applic Donepezil HCl (Aricept -) 10 mg PO [facility] Last Admin: 11/03/19 21:46 Dose: 10 mg Famotidine (Pepcid -) 20 mg PO [facility] Last Admin: 11/03/19 21:47 Dose: 20 mg Vancomycin HCl (Vancomycin (Pre-Docked)) 1,000 mg in 250 mls @ 200 mls/hr IVPB Q24H [facility]; Protocol Stop: 11/04/19 12:44 Last Admin: 11/03/19 14:28 Dose: 200 mls/hr Ampicillin Sodium/Sulbactam (Sodium 3 gm/ Sodium Chloride) 100 mls @ 200 mls/ hr IVPB DAILY [facility] Last Admin: 11/04/19 10:51 Dose: 200 mls/hr Sodium Chloride (Normal Saline -) 250 mls @ 3,000 mls/hr IV PRN PRN PRN Reason: Hypotension during Dialysis Stop: 11/05/19 10:43 Insulin Aspart (Novolog Vial Sliding Scale -) 1 vial SQ [facility]; Protocol Last Admin: 11/04/19 06:07 Dose: Not Given Insulin Detemir (Levemir Vial) 10 units SQ [facility] Last Admin: 11/03/19 21:48 Dose: 10 units Isosorbide Dinitrate (Isordil -) 20 mg PO BIDISORDIL [facility] Last Admin: 11/04/19 10:50 Dose: 20 mg Levothyroxine Sodium (Synthroid -) 125 mcg PO DAILY@0700 [facility] Last Admin: 11/04/19 06:07 Dose: 125 mcg Pregabalin (Lyrica -) 50 mg PO BID [facility] Last Admin: 11/04/19 10:50 Dose: 50 mg Vital Signs Period Temp Pulse Resp BP Sys/Palacios Pulse Ox Last 24 Hr 97.8 F-98.2 F 60-80 16-21 111-137/61-81 100-100 nad no jvd rrr s1s2 no mrg scattered rhonchi bl, nl eff awake alert no jaundice diaphoresis abd nt nd pos bs no jaundice diaphoresis echo 09/2019: lve, lvef 20-25%, global hk, lae, nl rv, mod mr, mod tr, mild ar , rvsp 40-50 09/19/2019 [employer]-D interrogated, 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 08/2019 10 beat run of NSVT self- terminated w/o therapy. 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 acute systolic chf, biv icd: -lvef severely reduced (?ischemic vs nicm, recently came from [place]) -has biv icd placed 2013, nl fcn when checked here last month -evidence of vol overload with bl pleural effs, cont HD per renal for vol management -cont coreg, nitrate htn: -cont coreg, nitrate esrd: -cont hd per renal elevated trops: -borderline trop elevation with flat trend and nl ck, similar to prior baseline values, not c/w acs
[2019-11-04] MEDS ORDERED: EPOETIN ALFA 2,000 UNIT/1 ML VIAL IVPUSH ONE (14:17)
--- NOTE | 2019-11-04 17:29 | PN ---
Progress Note, Physician History of Present Illness: AWAKE IN BED C/O HEAL PAIN AFEBRILE - Current Medication List Current Medications: Active Medications Acetaminophen (Tylenol -) 650 mg PO Q4H PRN PRN Reason: PAIN 1-3 Albuterol/Ipratropium (Duoneb -) 1 amp NEB RQID [facility] Last Admin: 11/04/19 16:59 Dose: 1 amp Atorvastatin Calcium (Lipitor -) 10 mg PO [facility] Last Admin: 11/03/19 21:46 Dose: 10 mg Carvedilol (Coreg -) 6.25 mg PO BID [facility] Last Admin: 11/04/19 10:50 Dose: 6.25 mg Collagenase (Santyl -) 1 applic TP DAILY [facility]; Protocol Last Admin: 11/04/19 10:55 Dose: 1 applic Donepezil HCl (Aricept -) 10 mg PO [facility] Last Admin: 11/03/19 21:46 Dose: 10 mg Famotidine (Pepcid -) 20 mg PO [facility] Last Admin: 11/03/19 21:47 Dose: 20 mg Ampicillin Sodium/Sulbactam (Sodium 3 gm/ Sodium Chloride) 100 mls @ 200 mls/ hr IVPB DAILY [facility] Last Admin: 11/04/19 10:51 Dose: 200 mls/hr Sodium Chloride (Normal Saline -) 250 mls @ 3,000 mls/hr IV PRN PRN PRN Reason: Hypotension during Dialysis Stop: 11/05/19 10:43 Insulin Aspart (Novolog Vial Sliding Scale -) 1 vial SQ [facility]; Protocol Last Admin: 11/04/19 13:00 Dose: 4 units Insulin Detemir (Levemir Vial) 10 units SQ [facility] Last Admin: 11/03/19 21:48 Dose: 10 units Isosorbide Dinitrate (Isordil -) 20 mg PO BIDISORDIL [facility] Last Admin: 11/04/19 10:50 Dose: 20 mg Levothyroxine Sodium (Synthroid -) 125 mcg PO DAILY@0700 [facility] Last Admin: 11/04/19 06:07 Dose: 125 mcg Pregabalin (Lyrica -) 50 mg PO BID [facility] Last Admin: 11/04/19 10:50 Dose: 50 mg - Objective Vital Signs: Vital Signs Temperature 98.0 F 11/04/19 14:00 Pulse Rate 87 11/04/19 14:00 Respiratory Rate 30 H 11/04/19 14:00 Blood Pressure 118/59 L 11/04/19 14:00 O2 Sat by Pulse Oximetry (%) 92 L 11/04/19 09:00 Constitutional: Yes: No Distress Eyes: Yes: Conjunctiva Clear Cardiovascular: Yes: Regular Rate and Rhythm, S1, S2 Respiratory: Yes: CTA Bilaterally Gastrointestinal: Yes: Normal Bowel Sounds, Soft. No: Tenderness Extremities: Yes: Other (+ NECROTIC HEEL ULCER WITH SURROUNDING ERYTHEMA) Labs: CBC, BMP 11/04/19 07:00 11/04/19 07:00 INR, PTT INR 1.01 (0.83-1.09) 10/31/19 15:00 Assessment/Plan NECROTIC HEEL ULCER HEEL CELLULITIS ESRD REDOSE VANCOMYCIN CONTINUE UNASYN
[2019-11-04] MEDS ORDERED: VANCOMYCIN 1 GRAM (PRE-DOCKED) 1,000 MG/250 ML BAG IVPB ONE (17:32)
[2019-11-04] MEDS: INSULIN (LEVEMIR) 100 UNITS/ML UNITS SQ SCH (21:38)
[2019-11-04] MEDS: DONEPEZIL HCL 10 MG TABLET (FP) PO SCH (21:38)
[2019-11-04] MEDS: ATORVASTATIN CA 10 MG TABLET (FP) PO SCH (21:38)
[2019-11-04] MEDS: FAMOTIDINE 20 MG TABLET PO SCH (21:39)
[2019-11-05] MEDS: INSULIN SLIDING SCALE (NOVOLOG) 1 VIAL SQ SCH ×4 (06:03→21:34)
[2019-11-05] MEDS: LEVOTHYROXINE NA 125 MCG TABLET (FP) PO SCH (06:03)
[2019-11-05] MEDS: ALBUTEROL SO4 2.5/IPRATROPIUM 0.5 INH SOL 3 ML VIAL.NEB. NEB SCH ×4 (08:15→20:46)
--- NOTE | 2019-11-05 09:23 | PN ---
Progress Note, Physician Chief Complaint: ON IV ABX AWAKE ALERT DECLINED XRAY OF FEET YESTERDAY - Current Medication List Current Medications: Active Medications Acetaminophen (Tylenol -) 650 mg PO Q4H PRN PRN Reason: PAIN 1-3 Albuterol/Ipratropium (Duoneb -) 1 amp NEB RQID [facility] Last Admin: 11/05/19 08:15 Dose: 1 amp Atorvastatin Calcium (Lipitor -) 10 mg PO [facility] Last Admin: 11/04/19 21:38 Dose: 10 mg Carvedilol (Coreg -) 6.25 mg PO BID [facility] Last Admin: 11/04/19 21:38 Dose: 6.25 mg Collagenase (Santyl -) 1 applic TP DAILY [facility]; Protocol Last Admin: 11/04/19 10:55 Dose: 1 applic Donepezil HCl (Aricept -) 10 mg PO [facility] Last Admin: 11/04/19 21:38 Dose: 10 mg Famotidine (Pepcid -) 20 mg PO [facility] Last Admin: 11/04/19 21:39 Dose: 20 mg Ampicillin Sodium/Sulbactam (Sodium 3 gm/ Sodium Chloride) 100 mls @ 200 mls/ hr IVPB DAILY [facility] Last Admin: 11/04/19 10:51 Dose: 200 mls/hr Sodium Chloride (Normal Saline -) 250 mls @ 3,000 mls/hr IV PRN PRN PRN Reason: Hypotension during Dialysis Stop: 11/05/19 10:43 Insulin Aspart (Novolog Vial Sliding Scale -) 1 vial SQ [facility]; Protocol Last Admin: 11/05/19 06:03 Dose: 8 units Insulin Detemir (Levemir Vial) 10 units SQ [facility] Last Admin: 11/04/19 21:38 Dose: 10 units Isosorbide Dinitrate (Isordil -) 20 mg PO BIDISORDIL [facility] Last Admin: 11/04/19 18:40 Dose: 20 mg Levothyroxine Sodium (Synthroid -) 125 mcg PO DAILY@0700 [facility] Last Admin: 11/05/19 06:03 Dose: 125 mcg Pregabalin (Lyrica -) 50 mg PO BID [facility] Last Admin: 11/04/19 21:39 Dose: 50 mg - Objective Vital Signs: Vital Signs Temperature 98.2 F 11/05/19 06:00 Pulse Rate 74 11/05/19 08:21 Respiratory Rate 16 11/05/19 08:21 Blood Pressure 116/65 11/05/19 08:21 O2 Sat by Pulse Oximetry (%) 92 L 11/05/19 07:54 Constitutional: Yes: No Distress Cardiovascular: Yes: Regular Rate and Rhythm Respiratory: Yes: WNL Gastrointestinal: Yes: WNL Genitourinary: Yes: Other Musculoskeletal: Yes: Other Extremities: Yes: Other Integumentary: Yes: Other Wound/Incision: Yes: Dressing Dry and Intact (HEELS B/L NECROTIC ULCER) Neurological: Yes: Pre-Existing Deficit Labs: CBC, BMP 11/04/19 07:00 11/04/19 07:00 INR, PTT INR 1.01 (0.83-1.09) 10/31/19 15:00 Problem List - Problems (1) Elevated troponin Code(s): R79.89 - OTHER SPECIFIED ABNORMAL FINDINGS OF BLOOD CHEMISTRY (2) Hyperkalemia Code(s): E87.5 - HYPERKALEMIA (3) Acute decompensated heart failure Code(s): I50.9 - HEART FAILURE, UNSPECIFIED (4) COPD (chronic obstructive pulmonary disease) Code(s): J44.9 - CHRONIC OBSTRUCTIVE PULMONARY DISEASE, UNSPECIFIED (5) Heel ulcer Code(s): L97.409 - NON-PRS CHRONIC ULCER OF UNSP HEEL AND MIDFOOT W UNSP SEVERT Qualifiers: Laterality: right (6) Pleural effusion Code(s): J90 - PLEURAL EFFUSION, NOT ELSEWHERE CLASSIFIED (7) Right foot pain Code(s): M79.671 - PAIN IN RIGHT FOOT (8) Biventricular ICD (implantable cardioverter-defibrillator) in place Code(s): Z95.810 - PRESENCE OF AUTOMATIC (IMPLANTABLE) CARDIAC DEFIBRILLATOR (9) Cardiomyopathy Code(s): I42.9 - CARDIOMYOPATHY, UNSPECIFIED Qualifiers: (10) Diabetes Code(s): E11.9 - TYPE 2 DIABETES MELLITUS WITHOUT COMPLICATIONS Qualifiers: Diabetes mellitus type: type 2 Chronic kidney disease stage: on chronic dialysis (11) ESRD (end stage renal disease) Code(s): N18.6 - END STAGE RENAL DISEASE (12) Hypothyroid Code(s): E03.9 - HYPOTHYROIDISM, UNSPECIFIED Qualifiers: Hypothyroidism type: unspecified Qualified Code(s): E03.9 - Hypothyroidism , unspecified (13) 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 ID DOSING VANCOMYCIN IV ABX TX WITH ESRD
[2019-11-05] MEDS: AMPICILLIN NA/SULBACTAM NA 3 GM in SODIUM CHLORIDE 100 ML IVPB SCH (09:44)
[2019-11-05] MEDS: ISOSORBIDE DINITRATE 20 MG TABLET (FP) PO SCH ×2 (09:44→18:00)
[2019-11-05] MEDS: CARVEDILOL 6.25 MG TABLET (FP) PO SCH ×2 (09:45→21:20)
[2019-11-05] MEDS: PREGABALIN 50 MG CAPSULE PO SCH ×2 (09:45→21:20)
[2019-11-05] MEDS: COLLAGENASE CLOSTRIDIUM HIST. 30 GRAMS TUBE TP SCH (09:46)
--- NOTE | 2019-11-05 10:51 | PN ---
Progress Note, Physician History of Present Illness: Pt seen and examined at bedside. He is awake and appears comfortable. - Current Medication List Current Medications: Active Medications Acetaminophen (Tylenol -) 650 mg PO Q4H PRN PRN Reason: PAIN 1-3 Albuterol/Ipratropium (Duoneb -) 1 amp NEB RQID [facility] Last Admin: 11/05/19 08:15 Dose: 1 amp Atorvastatin Calcium (Lipitor -) 10 mg PO [facility] Last Admin: 11/04/19 21:38 Dose: 10 mg Carvedilol (Coreg -) 6.25 mg PO BID [facility] Last Admin: 11/05/19 09:45 Dose: 6.25 mg Collagenase (Santyl -) 1 applic TP DAILY [facility]; Protocol Last Admin: 11/05/19 09:46 Dose: 1 applic Donepezil HCl (Aricept -) 10 mg PO [facility] Last Admin: 11/04/19 21:38 Dose: 10 mg Famotidine (Pepcid -) 20 mg PO [facility] Last Admin: 11/04/19 21:39 Dose: 20 mg Ampicillin Sodium/Sulbactam (Sodium 3 gm/ Sodium Chloride) 100 mls @ 200 mls/ hr IVPB DAILY [facility] Last Admin: 11/05/19 09:44 Dose: 200 mls/hr Insulin Aspart (Novolog Vial Sliding Scale -) [address] [facility]; Protocol Last Admin: 11/05/19 06:03 Dose: 8 units Insulin Detemir (Levemir Vial) 10 units SQ [facility] Last Admin: 11/04/19 21:38 Dose: 10 units Isosorbide Dinitrate (Isordil -) 20 mg PO BIDISORDIL [facility] Last Admin: 11/05/19 09:44 Dose: 20 mg Levothyroxine Sodium (Synthroid -) 125 mcg PO DAILY@0700 [facility] Last Admin: 11/05/19 06:03 Dose: 125 mcg Pregabalin (Lyrica -) 50 mg PO BID [facility] Last Admin: 11/05/19 09:45 Dose: 50 mg - Objective Vital Signs: Vital Signs Temperature 98.2 F 11/05/19 06:00 Pulse Rate 74 11/05/19 08:21 Respiratory Rate 16 11/05/19 08:21 Blood Pressure 116/65 11/05/19 08:21 O2 Sat by Pulse Oximetry (%) 92 L 11/05/19 07:54 Constitutional: Yes: Calm Eyes: Yes: Conjunctiva Clear HENT: Yes: Atraumatic Cardiovascular: Yes: S1, S2 Respiratory: Yes: On Nasal O2 Gastrointestinal: Yes: Soft Genitourinary: Yes: WNL Musculoskeletal: Yes: WNL Edema: Yes Edema: LLE: Trace, RLE: Trace Neurological: Yes: Oriented Psychiatric: Yes: Oriented Labs: CBC, BMP 11/04/19 07:00 11/04/19 07:00 INR, PTT INR 1.01 (0.83-1.09) 10/31/19 15:00 Problem List - Problems (1) Acute decompensated heart failure Code(s): I50.9 - HEART FAILURE, UNSPECIFIED (2) Pleural effusion Code(s): J90 - PLEURAL EFFUSION, NOT ELSEWHERE CLASSIFIED (3) ESRD (end stage renal disease) Code(s): N18.6 - END STAGE RENAL DISEASE Assessment/Plan Current Medications Generic Name Dose Route Start Last Admin Trade Name Freq PRN Reason Stop Dose Admin Acetaminophen 650 mg 11/03/19 08:20 Tylenol - PO Q4H PRN PAIN 1-3 Albuterol/Ipratropium 1 amp 11/01/19 13:15 11/05/19 08:15 Duoneb - NEB 1 amp RQID [facility] Administration Atorvastatin Calcium 10 mg 11/01/19 22:00 11/04/19 21:38 Lipitor - PO 10 mg HS OSCAR Administration Carvedilol 6.25 mg 11/01/19 10:00 11/05/19 09:45 Coreg - PO 6.25 mg BID OSCAR Administration Collagenase 1 applic 11/03/19 10:45 11/05/19 09:46 Santyl - TP 1 applic DAILY OSCAR Administration Protocol Donepezil HCl 10 mg 11/01/19 22:00 11/04/19 21:38 Aricept - PO 10 mg HS OSCAR Administration Famotidine 20 mg 11/01/19 22:00 11/04/19 21:39 Pepcid - PO 20 mg HS OSCAR Administration Ampicillin Sodium/Sulbactam 100 mls @ 200 mls/hr 11/03/19 12:45 11/05/19 09: 44 Sodium 3 gm/ Sodium Chloride IVPB 200 mls/hr DAILY OSCAR Administration Insulin Aspart 1 vial 11/01/19 16:30 11/05/19 06:03 Novolog Vial Sliding Scale - SQ 8 units ACHS OSCAR Administration Protocol Insulin Detemir 10 units 11/01/19 22:00 11/04/19 21:38 Levemir Vial SQ 10 units HS OSCAR Administration Isosorbide Dinitrate 20 mg 11/04/19 10:00 11/05/19 09:44 Isordil - PO 20 mg BIDISORDIL OSCAR Administration Levothyroxine Sodium 125 mcg 11/01/19 07:00 11/05/19 06:03 Synthroid - PO 125 mcg DAILY@0700 OSCAR Administration Pregabalin 50 mg 11/03/19 22:00 11/05/19 09:45 Lyrica - PO 50 mg BID OSCAR Administration Impression 1. ESRD 2. HTN 3. fluid overload 4. DM 5. hypothyroidism 6. pleural effusion 7. hyperkalemia Plan - HD tomorrow - decrease lyrica dose to daily - volume status improving - renal diet
--- NOTE | 2019-11-05 12:28 | PN ---
Progress Note (short form) - Note Progress Note: s: dyspnea improving. no cp palps dizzy Current Medications Acetaminophen (Tylenol -) 650 mg PO Q4H PRN PRN Reason: PAIN 1-3 Albuterol/Ipratropium (Duoneb -) 1 amp NEB RQID [facility] Last Admin: 11/05/19 08:15 Dose: 1 amp Atorvastatin Calcium (Lipitor -) 10 mg PO HS [facility] Last Admin: 11/04/19 21:38 Dose: 10 mg Carvedilol (Coreg -) 6.25 mg PO BID [facility] Last Admin: 11/05/19 09:45 Dose: 6.25 mg Collagenase (Santyl -) 1 applic TP DAILY [facility]; Protocol Last Admin: 11/05/19 09:46 Dose: 1 applic Donepezil HCl (Aricept -) 10 mg PO [facility] Last Admin: 11/04/19 21:38 Dose: 10 mg Epoetin Yuan (Epogen -) 7,000 unit IVPUSH ONCE ONE Stop: 11/06/19 10:52 Famotidine (Pepcid -) 20 mg PO [facility] Last Admin: 11/04/19 21:39 Dose: 20 mg Ampicillin Sodium/Sulbactam (Sodium 3 gm/ Sodium Chloride) 100 mls @ 200 mls/ hr IVPB DAILY [facility] Last Admin: 11/05/19 09:44 Dose: 200 mls/hr Sodium Chloride (Normal Saline -) 250 mls @ 3,000 mls/hr IV PRN PRN PRN Reason: Hypotension during Dialysis Stop: 11/06/19 10:52 Insulin Aspart (Novolog Vial Sliding Scale -) 1 vial SQ [facility]; Protocol Last Admin: 11/05/19 06:03 Dose: 8 units Insulin Detemir (Levemir Vial) 10 units SQ [facility] Last Admin: 11/04/19 21:38 Dose: 10 units Isosorbide Dinitrate (Isordil -) 20 mg PO BIDISORDIL [facility] Last Admin: 11/05/19 09:44 Dose: 20 mg Levothyroxine Sodium (Synthroid -) 125 mcg PO DAILY@0700 [facility] Last Admin: 11/05/19 06:03 Dose: 125 mcg Pregabalin (Lyrica -) 50 mg PO BID [facility] Last Admin: 11/05/19 09:45 Dose: 50 mg Vital Signs Period Temp Pulse Resp BP Sys/Palacios Pulse Ox Last 24 Hr 98.0 F-100.6 F 74-97 16-20 112-127/59-74 92-92 nad no jvd rrr s1s2 no mrg scattered rhonchi bl, nl eff awake alert no jaundice diaphoresis abd nt nd pos bs no jaundice diaphoresis echo 09/2019: lve, lvef 20-25%, global hk, lae, nl rv, mod mr, mod tr, mild ar , rvsp 40-50 09/19/2019 [employer]-D interrogated, 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 08/2019 10 beat run of NSVT self- terminated w/o therapy. echo 08/2019 Moderate dilated with severely decreased LVEF 20-25%, preserved wall motion at base, rest of segments severely HK, mod-severe MR, mild TR, pacemaker RV, mild-mod AR, mild ao dilatation 4.1 cm cta chest: no diss/aneurysm, mod bl effs ecg: sr, as-vp genetic tele: sr, as vp genetic a/p: 69 m hx dementia, htn, dm, syst chf s/p [place] biv icd, esrd on hd, here with sob. acute systolic chf, biv icd: -lvef severely reduced (?ischemic vs nicm, recently came from [place]) -has biv icd placed 2013, nl fcn when checked here last month -evidence of vol overload with bl pleural effs, cont HD per renal for vol management -cont coreg, nitrate htn: -cont coreg, nitrate esrd: -cont hd per renal elevated trops: -borderline trop elevation with flat trend and nl ck, similar to prior baseline values, not c/w acs
--- NOTE | 2019-11-05 13:30 | PN ---
Progress Note, Physician Chief Complaint: necrotoic right heel. - Current Medication List Current Medications: Active Medications Acetaminophen (Tylenol -) 650 mg PO Q4H PRN PRN Reason: PAIN 1-3 Albuterol/Ipratropium (Duoneb -) 1 amp NEB RQID [facility] Last Admin: 11/05/19 12:05 Dose: Not Given Atorvastatin Calcium (Lipitor -) 10 mg PO HS [facility] Last Admin: 11/04/19 21:38 Dose: 10 mg Carvedilol (Coreg -) 6.25 mg PO BID [facility] Last Admin: 11/05/19 09:45 Dose: 6.25 mg Collagenase (Santyl -) 1 applic TP DAILY [facility]; Protocol Last Admin: 11/05/19 09:46 Dose: 1 applic Donepezil HCl (Aricept -) 10 mg PO [facility] Last Admin: 11/04/19 21:38 Dose: 10 mg Epoetin Yuan (Epogen -) 7,000 unit IVPUSH ONCE ONE Stop: 11/06/19 10:52 Famotidine (Pepcid -) 20 mg PO [facility] Last Admin: 11/04/19 21:39 Dose: 20 mg Ampicillin Sodium/Sulbactam (Sodium 3 gm/ Sodium Chloride) 100 mls @ 200 mls/ hr IVPB DAILY [facility] Last Admin: 11/05/19 09:44 Dose: 200 mls/hr Sodium Chloride (Normal Saline -) 250 mls @ 3,000 mls/hr IV PRN PRN PRN Reason: Hypotension during Dialysis Stop: 11/06/19 10:52 Insulin Aspart (Novolog Vial Sliding Scale -) 1 vial SQ [facility]; Protocol Last Admin: 11/05/19 13:19 Dose: Not Given Insulin Detemir (Levemir Vial) 10 units SQ [facility] Last Admin: 11/04/19 21:38 Dose: 10 units Isosorbide Dinitrate (Isordil -) 20 mg PO BIDISORDIL [facility] Last Admin: 11/05/19 09:44 Dose: 20 mg Levothyroxine Sodium (Synthroid -) 125 mcg PO DAILY@0700 [facility] Last Admin: 11/05/19 06:03 Dose: 125 mcg Pregabalin (Lyrica -) 50 mg PO BID [facility] Last Admin: 11/05/19 09:45 Dose: 50 mg - Objective Vital Signs: Vital Signs Temperature 98.2 F 11/05/19 06:00 Pulse Rate 74 11/05/19 08:21 Respiratory Rate 16 11/05/19 08:21 Blood Pressure 116/65 11/05/19 08:21 O2 Sat by Pulse Oximetry (%) 92 L 11/05/19 07:54 Extremities: Yes: Other (+cellulitis, +mal odor, +necrosis,) Labs: CBC, BMP 11/04/19 07:00 11/04/19 07:00 INR, PTT INR 1.01 (0.83-1.09) 10/31/19 15:00 Assessment/Plan cellulitis right heel eschar with wound Vascular consult read and appreciated. Santyl to right heel wound. Heel ofloading b/l pillow under calf. Discussed with medicine. On schedule for am 7 :30. Xray ordered. Pt to be cleared from medicine. INR ordered. Discussed with his daughter Starla. Please consent patient for debridement of right heel with possible use of integra graft. Possible bone biopsy if xray shows changes.
[2019-11-05 16:27] LABS: INR 1.03 (0.83-1.09); PROTHROMBIN TIME (PATIENT) 12.2 SEC (9.7-13.0)
[2019-11-05] MEDS: INSULIN (LEVEMIR) 100 UNITS/ML UNITS SQ SCH (21:20)
[2019-11-05] MEDS: DONEPEZIL HCL 10 MG TABLET (FP) PO SCH (21:20)
[2019-11-05] MEDS: ATORVASTATIN CA 10 MG TABLET (FP) PO SCH (21:20)
[2019-11-05] MEDS: FAMOTIDINE 20 MG TABLET PO SCH (21:21)
--- NOTE | 2019-11-05 22:17 | PN ---
Progress Note, Physician - Current Medication List Current Medications: Active Medications Acetaminophen (Tylenol -) 650 mg PO Q4H PRN PRN Reason: PAIN 1-3 Albuterol/Ipratropium (Duoneb -) 1 amp NEB RQID [facility] Last Admin: 11/05/19 20:46 Dose: 1 amp Atorvastatin Calcium (Lipitor -) 10 mg PO HS [facility] Last Admin: 11/05/19 21:20 Dose: 10 mg Carvedilol (Coreg -) 6.25 mg PO BID [facility] Last Admin: 11/05/19 21:20 Dose: 6.25 mg Collagenase (Santyl -) 1 applic TP DAILY [facility]; Protocol Last Admin: 11/05/19 09:46 Dose: 1 applic Donepezil HCl (Aricept -) 10 mg PO [facility] Last Admin: 11/05/19 21:20 Dose: 10 mg Epoetin Yuan (Epogen -) 7,000 unit IVPUSH ONCE ONE Stop: 11/06/19 10:52 Famotidine (Pepcid -) 20 mg PO [facility] Last Admin: 11/05/19 21:21 Dose: 20 mg Ampicillin Sodium/Sulbactam (Sodium 3 gm/ Sodium Chloride) 100 mls @ 200 mls/ hr IVPB DAILY [facility] Last Admin: 11/05/19 09:44 Dose: 200 mls/hr Sodium Chloride (Normal Saline -) 250 mls @ 3,000 mls/hr IV PRN PRN PRN Reason: Hypotension during Dialysis Stop: 11/06/19 10:52 Insulin Aspart (Novolog Vial Sliding Scale -) 1 vial SQ [facility]; Protocol Last Admin: 11/05/19 21:34 Dose: 4 units Insulin Detemir (Levemir Vial) 10 units SQ [facility] Last Admin: 11/05/19 21:20 Dose: 10 units Isosorbide Dinitrate (Isordil -) 20 mg PO BIDISORDIL [facility] Last Admin: 11/05/19 18:00 Dose: 20 mg Levothyroxine Sodium (Synthroid -) 125 mcg PO DAILY@0700 [facility] Last Admin: 11/05/19 06:03 Dose: 125 mcg Pregabalin (Lyrica -) 50 mg PO BID [facility] Last Admin: 11/05/19 21:20 Dose: 50 mg - Objective Vital Signs: Vital Signs Temperature 98.1 F 11/05/19 19:43 Pulse Rate 81 11/05/19 19:43 Respiratory Rate 17 11/05/19 19:43 Blood Pressure 120/69 11/05/19 19:43 O2 Sat by Pulse Oximetry (%) 92 L 11/05/19 11:00 Labs: CBC, BMP 11/04/19 07:00 11/04/19 07:00 INR, PTT INR 1.03 (0.83-1.09) 11/05/19 15:20
[2019-11-06] MEDS: LEVOTHYROXINE NA 125 MCG TABLET (FP) PO SCH (06:03)
[2019-11-06] MEDS: INSULIN SLIDING SCALE (NOVOLOG) 1 VIAL SQ SCH ×4 (06:44→21:51)
[2019-11-06 07:00] LABS: HEMOGLOBIN 10.4 GM/dL (11.7-16.9); MCH 30.5 pg (25.7-33.7); MCHC 32.6 g/dl (32.0-35.9); MEAN CELL VOLUME 93.3 fl (80-96); MEAN PLT VOLUME 9.1 fl (7.5-11.1); PLATELET COUNT 88 K/MM3 (134-434); RBC 3.43 M/mm3 (4.00-5.60); RDW 16.7 % (11.9-15.9); WHITE BLOOD COUNT 4.2 K/mm3 (4.0-10.0)
[2019-11-06] MEDS ORDERED: LIDOCAINE HCL 1%, 10 MG/ML (20ML VIAL) ONE (07:19)
[2019-11-06] MEDS ORDERED: DEXAMETHASONE SOD PHOSPHATE 4 MG/1 ML VIAL ONE (07:19)
[2019-11-06] MEDS ORDERED: BENZOIN/ALOE VERA/STORAX/TOLU 58 ML BOTTLE ONE (07:20)
[2019-11-06] MEDS ORDERED: BACITRACIN 15 GM TUBE TOPICAL OINTMENT ONE (07:28)
[2019-11-06] MEDS ORDERED: MIDAZOLAM HCL 2 MG/2 ML SINGLE DOSE VIAL ONE (07:43)
[2019-11-06] MEDS ORDERED: ceFAZolin SODIUM 1 GM VIAL IVPB ONE (07:50)
[2019-11-06 07:52] LABS: BLOOD UREA NITROGEN 59.4 mg/dL (7-18); CALCIUM 7.4 mg/dL (8.5-10.1); CREATININE 4.8 mg/dL (0.55-1.3)
[2019-11-06] MEDS ORDERED: PROPOFOL 20 ML ONE (07:53)
[2019-11-06] MEDS ORDERED: ceFAZolin 2 GRAM PREMIX BAG IVPB ONE (07:56)
[2019-11-06] MEDS ORDERED: LIDOCAINE HCL 1%, 10 MG/ML (20ML VIAL) NR ONE (07:56)
--- NOTE | 2019-11-06 08:04 | PN ---
Progress Note (short form) - Note Progress Note: MEDICAL CLEARANCE NOTE PATIENT HAS 2 AREAS OF NECROTIC ULCERS AND DERMATIC CHANGES ON HIS LOWER EXTREMITY HEELS THAT NEED DEBRIDEMENT SURGICALLY. THE BENEFIT OUTWEIGHS THE RISK TO PREVENT FURTHER ULCERS AND PREVENT AMPUTATIONS OF THE LOWER EXTREMITY IN THE FUTURE. PATIENT IS MEDICALLY CLEARED FOR SURGICAL DEBRIDEMENT TO HEELS. Problem List - Problems (1) Elevated troponin Code(s): R79.89 - OTHER SPECIFIED ABNORMAL FINDINGS OF BLOOD CHEMISTRY (2) Hyperkalemia Code(s): E87.5 - HYPERKALEMIA (3) Acute decompensated heart failure Code(s): I50.9 - HEART FAILURE, UNSPECIFIED (4) COPD (chronic obstructive pulmonary disease) Code(s): J44.9 - CHRONIC OBSTRUCTIVE PULMONARY DISEASE, UNSPECIFIED (5) Heel ulcer Code(s): L97.409 - NON-PRS CHRONIC ULCER OF UNSP HEEL AND MIDFOOT W UNSP SEVERT Qualifiers: Laterality: right (6) Pleural effusion Code(s): J90 - PLEURAL EFFUSION, NOT ELSEWHERE CLASSIFIED (7) Right foot pain Code(s): M79.671 - PAIN IN RIGHT FOOT (8) Biventricular ICD (implantable cardioverter-defibrillator) in place Code(s): Z95.810 - PRESENCE OF AUTOMATIC (IMPLANTABLE) CARDIAC DEFIBRILLATOR (9) Cardiomyopathy Code(s): I42.9 - CARDIOMYOPATHY, UNSPECIFIED Qualifiers: (10) Diabetes Code(s): E11.9 - TYPE 2 DIABETES MELLITUS WITHOUT COMPLICATIONS Qualifiers: Diabetes mellitus type: type 2 Chronic kidney disease stage: on chronic dialysis (11) ESRD (end stage renal disease) Code(s): N18.6 - END STAGE RENAL DISEASE (12) Hypothyroid Code(s): E03.9 - HYPOTHYROIDISM, UNSPECIFIED Qualifiers: Hypothyroidism type: unspecified Qualified Code(s): E03.9 - Hypothyroidism , unspecified (13) 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
[2019-11-06] MEDS: ALBUTEROL SO4 2.5/IPRATROPIUM 0.5 INH SOL 3 ML VIAL.NEB. NEB SCH ×2 (08:57→11:43)
[2019-11-06] MEDS ORDERED: SODIUM CHLORIDE 250 ML IV PRN (10:26)
--- NOTE | 2019-11-06 10:41 | PN ---
Progress Note (short form) - Note Progress Note: s: no cp palps dizzy, sob less; s/p heel debridement today Current Medications Generic Name Dose Route Start Last Admin Trade Name Jaleesa PRN Reason Stop Dose Admin Acetaminophen 650 mg 11/03/19 08:20 Tylenol - PO Q4H PRN PAIN 1-3 Albuterol/Ipratropium 1 amp 11/01/19 13:15 11/06/19 08:57 Duoneb - NEB Not Given RQID [facility] Atorvastatin Calcium 10 mg 11/01/19 22:00 11/05/19 21:20 Lipitor - PO 10 mg HS [facility] Administration Carvedilol 6.25 mg 11/01/19 10:00 11/05/19 21:20 Coreg - PO 6.25 mg BID [facility] Administration Collagenase 1 applic 11/03/19 10:45 11/05/19 09:46 Santyl - TP 1 applic DAILY [facility] Administration Protocol Donepezil HCl 10 mg 11/01/19 22:00 11/05/19 21:20 Aricept - PO 10 mg HS [facility] Administration Epoetin Yuan 7,000 unit 11/06/19 11:00 Procrit - IVPUSH 11/06/19 11:01 ONCE ONE Famotidine 20 mg 11/01/19 22:00 11/05/19 21:21 Pepcid - PO 20 mg HS [facility] Administration Ampicillin Sodium/Sulbactam 100 mls @ 200 mls/hr 11/03/19 12:45 11/05/19 09: 44 Sodium 3 gm/ Sodium Chloride IVPB 200 mls/hr DAILY [facility] Administration Insulin Aspart 1 vial 11/01/19 16:30 11/06/19 06:44 Novolog Vial Sliding Scale - SQ Not Given ACHS [facility] Protocol Insulin Detemir 10 units 11/01/19 22:00 11/05/19 21:20 Levemir Vial SQ 10 units HS [facility] Administration Isosorbide Dinitrate 20 mg 11/04/19 10:00 11/05/19 18:00 Isordil - PO 20 mg BIDISORDIL [facility] Administration Levothyroxine Sodium 125 mcg 11/01/19 07:00 11/06/19 06:03 Synthroid - PO Not Given DAILY@0700 [facility] Pregabalin 50 mg 11/03/19 22:00 11/05/19 21:20 Lyrica - PO 50 mg BID [facility] Administration Vital Signs Period Temp Pulse Resp BP Sys/Palacios Pulse Ox Last 24 Hr 97.4 F-98.7 F 65-81 16-22 103-134/48-77 92-97 nad no jvd rrr s1s2 no mrg scattered rhonchi bl, nl eff awake alert no jaundice diaphoresis abd nt nd pos bs no jaundice diaphoresis CBC, BMP 11/06/19 05:30 11/06/19 05:30 echo 09/2019: lve, lvef 20-25%, global hk, lae, nl rv, mod mr, mod tr, mild ar , rvsp 40-50 09/19/2019 [employer]ICE [employer]QUIPMENT [employer]CH[employer]ICIAN-D interrogated, 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 08/2019 10 beat run of NSVT self- terminated w/o therapy. 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 acute systolic chf, biv icd: -lvef severely reduced (?ischemic vs nicm, recently came from [place]) -has biv icd placed 2013, nl fcn when checked here last month -evidence of some vol overload with bl pleural effs, cont HD per renal for vol management -cont coreg, nitrate htn: -cont coreg, nitrate esrd: -cont hd per renal elevated trops: -borderline trop elevation with flat trend and nl ck, similar to prior baseline values, not c/w acs
[2019-11-06] MEDS ORDERED: EPOETIN ALFA 10,000 UNIT/1 ML VIAL IVPUSH ONE (11:00)
--- NOTE | 2019-11-06 11:19 | PN ---
Progress Note, Physician Chief Complaint: ASLEEP HD BEDSIDE S/P DEBRIDEMENT RIGHT HEEL ABSCESS - Current Medication List Current Medications: Active Medications Acetaminophen (Tylenol -) 650 mg PO Q4H PRN PRN Reason: PAIN 1-3 Albuterol/Ipratropium (Duoneb -) 1 amp NEB RQID [facility] Last Admin: 11/06/19 08:57 Dose: Not Given Atorvastatin Calcium (Lipitor -) 10 mg PO [facility] Last Admin: 11/05/19 21:20 Dose: 10 mg Carvedilol (Coreg -) 6.25 mg PO BID [facility] Last Admin: 11/05/19 21:20 Dose: 6.25 mg Collagenase (Santyl -) 1 applic TP DAILY [facility]; Protocol Last Admin: 11/05/19 09:46 Dose: 1 applic Donepezil HCl (Aricept -) 10 mg PO [facility] Last Admin: 11/05/19 21:20 Dose: 10 mg Famotidine (Pepcid -) 20 mg PO [facility] Last Admin: 11/05/19 21:21 Dose: 20 mg Ampicillin Sodium/Sulbactam (Sodium 3 gm/ Sodium Chloride) 100 mls @ 200 mls/ hr IVPB DAILY [facility] Last Admin: 11/05/19 09:44 Dose: 200 mls/hr Insulin Aspart (Novolog Vial Sliding Scale -) 1 vial SQ [facility]; Protocol Last Admin: 11/06/19 06:44 Dose: Not Given Insulin Detemir (Levemir Vial) 10 units SQ [facility] Last Admin: 11/05/19 21:20 Dose: 10 units Isosorbide Dinitrate (Isordil -) 20 mg PO BIDISORDIL [facility] Last Admin: 11/05/19 18:00 Dose: 20 mg Levothyroxine Sodium (Synthroid -) 125 mcg PO DAILY@0700 [facility] Last Admin: 11/06/19 06:03 Dose: Not Given Pregabalin (Lyrica -) 50 mg PO BID [facility] Last Admin: 11/05/19 21:20 Dose: 50 mg - Objective Vital Signs: Vital Signs Temperature 98.2 F 11/06/19 10:05 Pulse Rate 69 11/06/19 10:10 Respiratory Rate 20 11/06/19 10:10 Blood Pressure 105/62 11/06/19 10:10 O2 Sat by Pulse Oximetry (%) 96 11/06/19 09:30 Constitutional: Yes: Mild Distress Cardiovascular: Yes: Regular Rate and Rhythm Respiratory: Yes: WNL Gastrointestinal: Yes: Soft, Distention Genitourinary: Yes: Other Integumentary: Yes: Other (RIGHT FOOT DRESSING DRY) Labs: CBC, BMP 11/06/19 05:30 11/06/19 05:30 INR, PTT INR 1.03 (0.83-1.09) 11/05/19 15:20 Problem List - Problems (1) Elevated troponin Code(s): R79.89 - OTHER SPECIFIED ABNORMAL FINDINGS OF BLOOD CHEMISTRY (2) Hyperkalemia Code(s): E87.5 - HYPERKALEMIA (3) Acute decompensated heart failure Code(s): I50.9 - HEART FAILURE, UNSPECIFIED (4) COPD (chronic obstructive pulmonary disease) Code(s): J44.9 - CHRONIC OBSTRUCTIVE PULMONARY DISEASE, UNSPECIFIED (5) Heel ulcer Code(s): L97.409 - NON-PRS CHRONIC ULCER OF UNSP HEEL AND MIDFOOT W UNSP SEVERT Qualifiers: Laterality: right (6) Pleural effusion Code(s): J90 - PLEURAL EFFUSION, NOT ELSEWHERE CLASSIFIED (7) Right foot pain Code(s): M79.671 - PAIN IN RIGHT FOOT (8) Biventricular ICD (implantable cardioverter-defibrillator) in place Code(s): Z95.810 - PRESENCE OF AUTOMATIC (IMPLANTABLE) CARDIAC DEFIBRILLATOR (9) Cardiomyopathy Code(s): I42.9 - CARDIOMYOPATHY, UNSPECIFIED Qualifiers: (10) Diabetes Code(s): E11.9 - TYPE 2 DIABETES MELLITUS WITHOUT COMPLICATIONS Qualifiers: Diabetes mellitus type: type 2 Chronic kidney disease stage: on chronic dialysis (11) ESRD (end stage renal disease) Code(s): N18.6 - END STAGE RENAL DISEASE (12) Hypothyroid Code(s): E03.9 - HYPOTHYROIDISM, UNSPECIFIED Qualifiers: Hypothyroidism type: unspecified Qualified Code(s): E03.9 - Hypothyroidism , unspecified (13) 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
--- NOTE | 2019-11-06 12:10 | OP ---
Operative Note - Note: Operative Date: 11/06/19 Pre-Operative Diagnosis: abscess with necrotic tissue right heel Operation: abscess I&D done, debridement of necrotic heel, /"iodoform packing all of right heel. Findings: drainage with necrotic tissue right heel Post-Operative Diagnosis: Same as Pre-op Surgeon: Flor Bobo Manager Bank: Cullen Castorena Anesthesia: Local, MAC Specimens Removed: necrotic tissue and drainage Estimated Blood Loss (mls): 20 Instrument used (Debridements only): blade #[id number] Operative Report Dictated: No
--- NOTE | 2019-11-06 12:39 | PN ---
Progress Note, Physician History of Present Illness: Pt seen and examined at bedside. He is tolerating HD. - Current Medication List Current Medications: Active Medications Acetaminophen (Tylenol -) 650 mg PO Q4H PRN PRN Reason: PAIN 1-3 Albuterol/Ipratropium (Duoneb -) 1 amp NEB RQID [facility] Last Admin: 11/06/19 11:43 Dose: 1 amp Atorvastatin Calcium (Lipitor -) 10 mg PO [facility] Last Admin: 11/05/19 21:20 Dose: 10 mg Carvedilol (Coreg -) 6.25 mg PO BID [facility] Last Admin: 11/05/19 21:20 Dose: 6.25 mg Collagenase (Santyl -) 1 applic TP DAILY [facility]; Protocol Last Admin: 11/05/19 09:46 Dose: 1 applic Donepezil HCl (Aricept -) 10 mg PO [facility] Last Admin: 11/05/19 21:20 Dose: 10 mg Famotidine (Pepcid -) 20 mg PO [facility] Last Admin: 11/05/19 21:21 Dose: 20 mg Ampicillin Sodium/Sulbactam (Sodium 3 gm/ Sodium Chloride) 100 mls @ 200 mls/ hr IVPB DAILY [facility] Last Admin: 11/05/19 09:44 Dose: 200 mls/hr Insulin Aspart (Novolog Vial Sliding Scale -) [address] [facility]; Protocol Last Admin: 11/06/19 06:44 Dose: Not Given Insulin Detemir (Levemir Vial) 10 units SQ [facility] Last Admin: 11/05/19 21:20 Dose: 10 units Isosorbide Dinitrate (Isordil -) 20 mg PO BIDISORDIL [facility] Last Admin: 11/05/19 18:00 Dose: 20 mg Levothyroxine Sodium (Synthroid -) 125 mcg PO DAILY@0700 [facility] Last Admin: 11/06/19 06:03 Dose: Not Given Pregabalin (Lyrica -) 50 mg PO BID [facility] Last Admin: 11/05/19 21:20 Dose: 50 mg - Objective Vital Signs: Vital Signs Temperature 98.2 F 11/06/19 10:05 Pulse Rate 82 11/06/19 12:10 Respiratory Rate 18 11/06/19 12:10 Blood Pressure 106/65 11/06/19 12:10 O2 Sat by Pulse Oximetry (%) 96 11/06/19 09:30 Constitutional: Yes: Calm Eyes: Yes: Conjunctiva Clear HENT: Yes: Atraumatic Cardiovascular: Yes: S1, S2 Respiratory: Yes: CTA Bilaterally Gastrointestinal: Yes: Soft Genitourinary: Yes: WNL Musculoskeletal: Yes: WNL Edema: No Neurological: Yes: Oriented Psychiatric: Yes: Oriented Labs: CBC, BMP 11/06/19 05:30 11/06/19 05:30 INR, PTT INR 1.03 (0.83-1.09) 11/05/19 15:20 Problem List - Problems (1) Acute decompensated heart failure Code(s): I50.9 - HEART FAILURE, UNSPECIFIED (2) Pleural effusion Code(s): J90 - PLEURAL EFFUSION, NOT ELSEWHERE CLASSIFIED (3) ESRD (end stage renal disease) Code(s): N18.6 - END STAGE RENAL DISEASE Assessment/Plan Current Medications Generic Name Dose Route Start Last Admin Trade Name Freq PRN Reason Stop Dose Admin Acetaminophen 650 mg 11/03/19 08:20 Tylenol - PO Q4H PRN PAIN 1-3 Albuterol/Ipratropium 1 amp 11/01/19 13:15 11/06/19 11:43 Duoneb - NEB 1 amp RQID [facility] Administration Atorvastatin Calcium 10 mg 11/01/19 22:00 11/05/19 21:20 Lipitor - PO 10 mg HS [facility] Administration Carvedilol 6.25 mg 11/01/19 10:00 11/05/19 21:20 Coreg - PO 6.25 mg BID [facility] Administration Collagenase 1 applic 11/03/19 10:45 11/05/19 09:46 Santyl - TP 1 applic DAILY [facility] Administration Protocol Donepezil HCl 10 mg 11/01/19 22:00 11/05/19 21:20 Aricept - PO 10 mg HS [facility] Administration Famotidine 20 mg 11/01/19 22:00 11/05/19 21:21 Pepcid - PO 20 mg HS [facility] Administration Ampicillin Sodium/Sulbactam 100 mls @ 200 mls/hr 11/03/19 12:45 11/05/19 09: 44 Sodium 3 gm/ Sodium Chloride IVPB 200 mls/hr DAILY [facility] Administration Insulin Aspart 1 vial 11/01/19 16:30 11/06/19 06:44 Novolog Vial Sliding Scale - SQ Not Given ACHS [facility] Protocol Insulin Detemir 10 units 11/01/19 22:00 11/05/19 21:20 Levemir Vial SQ 10 units HS [facility] Administration Isosorbide Dinitrate 20 mg 11/04/19 10:00 11/05/19 18:00 Isordil - PO 20 mg BIDISORDIL [facility] Administration Levothyroxine Sodium 125 mcg 11/01/19 07:00 11/06/19 06:03 Synthroid - PO Not Given DAILY@0700 [facility] Pregabalin 50 mg 11/03/19 22:00 11/05/19 21:20 Lyrica - PO 50 mg BID [facility] Administration Impression 1. ESRD 2. HTN 3. fluid overload 4. DM 5. hypothyroidism 6. pleural effusion 7. hyperkalemia Plan - HD today - wound care - volume status greatly improved - renal diet
[2019-11-06] MEDS: COLLAGENASE CLOSTRIDIUM HIST. 30 GRAMS TUBE TP SCH (14:19)
[2019-11-06] MEDS: ISOSORBIDE DINITRATE 20 MG TABLET (FP) PO SCH ×2 (14:24→17:12)
[2019-11-06] MEDS: CARVEDILOL 6.25 MG TABLET (FP) PO SCH ×2 (14:24→21:47)
[2019-11-06] MEDS ORDERED: PT OWN MED DRAWER 7, Y5N ONE ×3 (14:27→17:27)
[2019-11-06] MEDS: AMPICILLIN NA/SULBACTAM NA 3 GM in SODIUM CHLORIDE 100 ML IVPB SCH (14:40)
[2019-11-06] MEDS ORDERED: VANCOMYCIN 1 GRAM (PRE-DOCKED) 1,000 MG/250 ML BAG IVPB ONE (17:28)
--- NOTE | 2019-11-06 17:32 | PN ---
Progress Note, Physician History of Present Illness: S/P DEBRIDEMENT R HEEL AWAKE IN BED NO C/O HEAL PAIN AFEBRILE OPERATIVE C/S PENDING - Current Medication List Current Medications: Active Medications Acetaminophen (Tylenol -) 650 mg PO Q4H PRN PRN Reason: PAIN 1-3 Atorvastatin Calcium (Lipitor -) 10 mg PO HS [facility] Last Admin: 11/05/19 21:20 Dose: 10 mg Carvedilol (Coreg -) 6.25 mg PO BID [facility] Last Admin: 11/06/19 14:24 Dose: Not Given Collagenase (Santyl -) 1 applic TP DAILY [facility]; Protocol Last Admin: 11/06/19 14:19 Dose: 1 applic Donepezil HCl (Aricept -) 10 mg PO HS [facility] Last Admin: 11/05/19 21:20 Dose: 10 mg Famotidine (Pepcid -) 20 mg PO HS [facility] Last Admin: 11/05/19 21:21 Dose: 20 mg Ampicillin Sodium/Sulbactam (Sodium 3 gm/ Sodium Chloride) 100 mls @ 200 mls/ hr IVPB DAILY [facility] Last Admin: 11/06/19 14:40 Dose: 200 mls/hr Vancomycin HCl 1,000 mg/ (Dextrose) 250 mls @ 166.667 mls/hr IVPB ONCE ONE; Protocol Stop: 11/06/19 18:57 Insulin Aspart (Novolog Vial Sliding Scale -) 1 vial SQ [facility]; Protocol Last Admin: 11/06/19 17:24 Dose: 2 units Insulin Detemir (Levemir Vial) 10 units SQ [facility] Last Admin: 11/05/19 21:20 Dose: 10 units Isosorbide Dinitrate (Isordil -) 20 mg PO BIDISORDIL [facility] Last Admin: 11/06/19 17:12 Dose: 20 mg Levothyroxine Sodium (Synthroid -) 125 mcg PO DAILY@0700 [facility] Last Admin: 11/06/19 06:03 Dose: Not Given Pregabalin (Lyrica -) 50 mg PO DAILY [facility] - Objective Vital Signs: Vital Signs Temperature 98.1 F 11/06/19 14:00 Pulse Rate 117 H 11/06/19 16:00 Respiratory Rate 20 11/06/19 16:00 Blood Pressure 137/79 11/06/19 16:00 O2 Sat by Pulse Oximetry (%) 100 11/06/19 09:45 Constitutional: Yes: No Distress Eyes: Yes: Conjunctiva Clear Cardiovascular: Yes: Regular Rate and Rhythm, S1, S2 Respiratory: Yes: CTA Bilaterally Gastrointestinal: Yes: Normal Bowel Sounds, Soft. No: Tenderness Extremities: Yes: Other (POST OP DRESSING IN PLACE) Labs: CBC, BMP 11/06/19 05:30 11/06/19 05:30 INR, PTT INR 1.03 (0.83-1.09) 11/05/19 15:20 Assessment/Plan NECROTIC HEEL ULCER S/P DEBRIDEMENT HEEL CELLULITIS ESRD REDOSE VANCOMYCIN CHECK RANDOM LEVEL AM CONTINUE UNASYN AWAIT OPERATIVE C/S
[2019-11-06] MEDS: ATORVASTATIN CA 10 MG TABLET (FP) PO SCH (21:48)
[2019-11-06] MEDS: DONEPEZIL HCL 10 MG TABLET (FP) PO SCH (21:48)
[2019-11-06] MEDS: FAMOTIDINE 20 MG TABLET PO SCH (21:48)
[2019-11-06] MEDS: INSULIN (LEVEMIR) 100 UNITS/ML UNITS SQ SCH (21:50)
[2019-11-07] MEDS: INSULIN SLIDING SCALE (NOVOLOG) 1 VIAL SQ SCH ×4 (06:03→21:23)
[2019-11-07] MEDS: LEVOTHYROXINE NA 125 MCG TABLET (FP) PO SCH (06:03)
[2019-11-07 06:33] LABS: HEMATOCRIT 31.7 % (35.4-49); HEMOGLOBIN 10.4 GM/dL (11.7-16.9); MCH 30.7 pg (25.7-33.7); MCHC 32.9 g/dl (32.0-35.9); MEAN CELL VOLUME 93.3 fl (80-96); PLATELET COUNT 96 K/MM3 (134-434); RDW 16.5 % (11.9-15.9); WHITE BLOOD COUNT 4.9 K/mm3 (4.0-10.0)
[2019-11-07 07:13] LABS: ALBUMIN 2.2 g/dl (3.4-5.0); BILIRUBIN,TOTAL 0.6 mg/dL (0.2-1); BLOOD UREA NITROGEN 36.7 mg/dL (7-18); CALCIUM 7.8 mg/dL (8.5-10.1); CREATININE 3.6 mg/dL (0.55-1.3); POTASSIUM 3.8 mmol/L (3.5-5.1); TOT PROT 5.4 g/dl (6.4-8.2)
--- NOTE | 2019-11-07 08:48 | PN ---
Progress Note (short form) - Note Progress Note: 69M s/p right heel I&D under MAC. No new c/o. Vital Signs Temp 98.1 F 11/06/19 14:00 Pulse 75 11/07/19 06:00 Resp 16 11/07/19 06:00 BP 99/59 L 11/07/19 06:00 Pulse Ox 96 11/06/19 21:00 Intake & Output 11/06/19 11/06/19 11/07/19 11:59 23:59 11:59 Intake Total 300 425 100 Output Total 70 3400 Balance 230 -2975 100 Weight 174 lb 8 oz 178 lb 12.718 oz Intake: IV 100 IVPB 200 300 Oral 125 100 Output: Urine 50 Void 50 Fluid Removed, 3400 Hemodialysis Estimated Blood Loss 20 Other: Voiding Method Urinal Bowel Movement No No Weight Measurement Method Built in Bedscale Built in Bedscale CBC, BMP 11/07/19 05:45 11/07/19 05:45 - No anesthesia complications
--- NOTE | 2019-11-07 09:01 | DS ---
Physical Examination Vital Signs: Vital Signs Temperature 98.1 F 11/06/19 14:00 Pulse Rate 75 11/07/19 06:00 Respiratory Rate 16 11/07/19 06:00 Blood Pressure 99/59 L 11/07/19 06:00 O2 Sat by Pulse Oximetry (%) 96 11/06/19 21:00 Cardiovascular: Yes: Regular Rate and Rhythm Respiratory: Yes: Regular, CTA Bilaterally Gastrointestinal: Yes: Normal Bowel Sounds, Soft Wound/Incision: Yes: Dressing Dry and Intact Labs: CBC, BMP 11/07/19 05:45 11/07/19 05:45 Discharge Summary Reason For Visit: ACUTE ON CHRONIC CHF Current Active Problems 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 (Acute) Elevated troponin (Acute) Hyperkalemia (Acute) Hospital Course: - Problems (1) Heel Ulcer Assessment/Plan: S/P RIGHT HEEL DEBRIDEMENT OF ABSCESS WILL F/U CX AND PATHOLOGY IV ABX PER ID--WILL DC ONCE CLEARED BY ID ?PIC LINE DVT PROPHYLAXIS (2) Pleural effusion Assessment/Plan: -Improved -HD as per renal Problems reviewed: Yes Code(s): J90 - PLEURAL EFFUSION, NOT ELSEWHERE CLASSIFIED (3) Diabetes Assessment/Plan: -BGM AC HS -ISS -Last A1c 8.1 in 09/2019 -Levemir Problems reviewed: Yes Code(s): E11.9 - TYPE 2 DIABETES MELLITUS WITHOUT COMPLICATIONS Qualifiers: Diabetes mellitus type: type 2 Chronic kidney disease stage: on chronic dialysis (4) ESRD (end stage renal disease) Assessment/Plan: -Nephrology on board -HD as per renal Problems reviewed: Yes Code(s): N18.6 - END STAGE RENAL DISEASE (5) Elevated troponin Assessment/Plan: -Seen by Cardiology -At baseline as previous, likely 2/2 to ESRD, not consistent with ACS -EKG-NSR -Echo 09/2019: LVEF 20-25%, global hyperkinesis, normal Right ventricle, mod mitral rregurg, mod tricuspid regurg, mild aortic regurg, right vent systolic pressure- 40-50 Problems reviewed: Yes Code(s): R79.89 - OTHER SPECIFIED ABNORMAL FINDINGS OF BLOOD CHEMISTRY Condition: Improved - Instructions Diet, Activity, Other Instructions: ANTIBIOTICS PER ID RECOMMENDATIONS Disposition: INTERMEDIATE FACILITY - Home Medications Comprehensive Discharge Medication List: Ambulatory Orders Acetaminophen [Pain Relief] 650 mg PO PRN 10/20/19 Donepezil HCl [Aricept] 10 mg PO HS 10/20/19 Famotidine [Acid Controller] 20 mg PO BID 10/20/19 Insulin Detemir [Levemir Flextouch] 10 unit SCJ HS 10/20/19 Ipratropium/Albuterol Sulfate [Iprat-Albut 0.5-3(2.5) mg/3 ml] 1 tube NEB QID Isosorbide Dinitrate [Isordil] 20 mg PO BID 10/20/19 Levothyroxine Sodium [Levoxyl] 125 mcg PO DAILY 10/20/19 Pregabalin [Lyrica -] 75 mg PO DAILY 10/20/19 Atorvastatin Ca [Lipitor] 10 mg PO HS 10/31/19 Insulin Sliding Scale [Novolog Vial Sliding Scale -] 0 units SQ ACHS 10/31/19 Carvedilol [Coreg -] 6.25 mg PO BID tablet 11/07/19 Collagenase Clostridium Hist. [Santyl -] 1 applic TP DAILY tube 11/07/19
[2019-11-07] MEDS ORDERED: PT OWN MED DRAWER 7, Y5N ONE (09:27)
[2019-11-07] MEDS: PREGABALIN 50 MG CAPSULE PO SCH (09:37)
[2019-11-07] MEDS: ISOSORBIDE DINITRATE 20 MG TABLET (FP) PO SCH ×2 (09:37→18:26)
[2019-11-07] MEDS: CARVEDILOL 6.25 MG TABLET (FP) PO SCH ×2 (09:37→21:18)
[2019-11-07] MEDS ORDERED: AMPICILLIN NA/SULBACTAM NA 3 GM in SODIUM CHLORIDE 100 ML IVPB SCH (10:00)
--- NOTE | 2019-11-07 11:01 | PN ---
Progress Note, Physician History of Present Illness: S/P DEBRIDEMENT R HEEL POD #1 POST OP [address]ESSING IN PL[address] AWAKE IN BED C/O HEAL PAIN AFEBRILE OPERATIVE PRELIM MRSA, GNR - Current Medication List Current Medications: Active Medications Acetaminophen (Tylenol -) 650 mg PO Q4H PRN PRN Reason: PAIN 1-3 Atorvastatin Calcium (Lipitor -) 10 mg PO HS [facility] Carvedilol (Coreg -) 6.25 mg PO BID [facility] Last Admin: 11/07/19 09:37 Dose: 6.25 mg Donepezil HCl (Aricept -) 10 mg PO HS [facility] Famotidine (Pepcid -) 20 mg PO HS [facility] Ampicillin Sodium/Sulbactam (Sodium 3 gm/ Sodium Chloride) 100 mls @ 200 mls/ hr IVPB DAILY [facility] Last Admin: 11/07/19 09:35 Dose: 200 mls/hr Insulin Aspart (Novolog Vial Sliding Scale -) 1 vial SQ [facility]; Protocol Insulin Detemir (Levemir Vial) 10 units SQ HS [facility] Isosorbide Dinitrate (Isordil -) 20 mg PO BIDISORDIL [facility] Last Admin: 11/07/19 09:37 Dose: 20 mg Levothyroxine Sodium (Synthroid -) 125 mcg PO DAILY@0700 [facility] Pregabalin (Lyrica -) 50 mg PO DAILY [facility] Last Admin: 11/07/19 09:37 Dose: 50 mg - Objective Vital Signs: Vital Signs Temperature 98.1 F 11/06/19 14:00 Pulse Rate 75 11/07/19 06:00 Respiratory Rate 16 11/07/19 06:00 Blood Pressure 99/59 L 11/07/19 06:00 O2 Sat by Pulse Oximetry (%) 96 11/06/19 21:00 Constitutional: Yes: No Distress Eyes: Yes: Conjunctiva Clear Cardiovascular: Yes: Regular Rate and Rhythm, S1, S2 Respiratory: Yes: CTA Bilaterally Gastrointestinal: Yes: Normal Bowel Sounds, Soft. No: Tenderness Extremities: Yes: Other (POST OPERATIVE DRESSING IN PLACE R HEEL) Labs: CBC, BMP 11/07/19 05:45 11/07/19 05:45 INR, PTT INR 1.03 (0.83-1.09) 11/05/19 15:20 Assessment/Plan NECROTIC HEEL ULCER S/P DEBRIDEMENT POD #1 HEEL CELLULITIS ESRD REDOSED VANCOMYCIN CHECK RANDOM LEVEL NOTED CONTINUE UNASYN AWAIT FINAL OPERATIVE C/S
--- NOTE | 2019-11-07 12:10 | PN ---
Progress Note (short form) - Note Progress Note: Patient seen at bedside- post op debridement right heel. post op dressing in place C/O heel pain Afrebrile Opertive Prelim MRSA, GN Will follow Dr Castorena
[2019-11-07 13:01] VITALS: BMI 26.2
--- NOTE | 2019-11-07 13:42 | PATH ---
Surgical Pathology Report Patient Name: JESSICA AVALOS [facility]. Rec. #: [id number] /Age/Gender: 1950 (Age: 69) / M Account: [id number] Location: EMERGENCY ROOM Taken: 11/06/2019 Received: 11/06/2019 Reported: 11/07/2019 Physicians: Flor Bobo DPM Specimen(s) Received NECROTIC TISSUE RIGHT HEEL Clinical History Abscess right heal Final Diagnosis NECROTIC TISSUE, HEEL, RIGHT, DEBRIDEMENT: FIBROADIPOSE TISSUE AND DENSE FIBROUS TISSUE WITH MARKED ACUTE INFLAMMATION AND NECROSIS. Electronically Signed Isabela Armenta M.D. Gross Description Received in formalin labeled "necrotic tissue right heel," is a 2.0 x 1.5 x 0.3 cm aggregate of crooks[place], necrotic soft tissue fragments. The specimen is submitted in toto in one cassette. DL/11/06/2019 saudi11/06/2019
--- NOTE | 2019-11-07 14:20 | PN ---
Progress Note (short form) - Note Progress Note: D/W DR GATES NOT CLEARED FOR DC DRESSING CHANGE ON SUNDAY THEN LYDIA VARELA
--- NOTE | 2019-11-07 14:45 | PN ---
Progress Note (short form) - Note Progress Note: s: no cp palps dizzy, sob less Current Medications Generic Name Dose Route Start Last Admin Trade Name Freq PRN Reason Stop Dose Admin Acetaminophen 650 mg 11/07/19 07:49 Tylenol - PO Q4H PRN PAIN 1-3 Atorvastatin Calcium 10 mg 11/07/19 22:00 Lipitor - PO HS [facility] Carvedilol 6.25 mg 11/07/19 10:00 11/07/19 09:37 Coreg - PO 6.25 mg BID [facility] Administration Donepezil HCl 10 mg 11/07/19 22:00 Aricept - PO HS [facility] Famotidine 20 mg 11/07/19 22:00 Pepcid - PO HS [facility] Ampicillin Sodium/Sulbactam 100 mls @ 200 mls/hr 11/07/19 10:00 11/07/19 09: 35 Sodium 3 gm/ Sodium Chloride IVPB 200 mls/hr DAILY [facility] Administration Insulin Aspart 1 vial 11/07/19 11:00 11/07/19 12:25 Novolog Vial Sliding Scale - SQ Not Given ACHS [facility] Protocol Insulin Detemir 10 units 11/07/19 22:00 Levemir Vial SQ HS [facility] Isosorbide Dinitrate 20 mg 11/07/19 10:00 11/07/19 09:37 Isordil - PO 20 mg BIDISORDIL [facility] Administration Levothyroxine Sodium 125 mcg 11/08/19 07:00 Synthroid - PO DAILY@0700 [facility] Pregabalin 50 mg 11/07/19 10:00 11/07/19 09:37 Lyrica - PO 50 mg DAILY [facility] Administration Vital Signs Period Temp Pulse Resp BP Sys/Palacios Pulse Ox Last 24 Hr 97.6 F-97.6 F 72-117 16-22 94-137/56-79 96-96 nad no jvd rrr s1s2 no mrg cta bl nl eff awake alert no jaundice diaphoresis abd nt nd pos bs no jaundice diaphoresis CBC, BMP 11/07/19 05:45 11/07/19 05:45 echo 09/2019: lve, lvef 20-25%, global hk, lae, nl rv, mod mr, mod tr, mild ar , rvsp 40-50 09/19/2019 [employer]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 08/2019 10 beat run of NSVT self- terminated w/o therapy. echo 08/2019 Moderate dilated with severely decreased LVEF 20-25%, preserved wall motion at base, rest of segments severely HK, mod-severe MR, mild TR, pacemaker RV, mild-mod AR, mild ao dilatation 4.1 cm cta chest: no diss/aneurysm, mod bl effs ecg: sr, as-vp design tele: sr, as vp design a/p: 69 m hx dementia, htn, dm, syst chf s/p [place] biv icd, esrd on hd, here with sob. acute systolic chf, biv icd: -lvef severely reduced (?ischemic vs nicm, recently came from [place]) -has biv icd placed 2013, nl fcn when checked here last month -vol status improved, cont HD per renal for vol management -cont coreg, nitrate htn: -cont coreg, nitrate esrd: -cont hd per renal elevated trops: -borderline trop elevation with flat trend and nl ck, similar to prior baseline values, not c/w acs
--- NOTE | 2019-11-07 16:25 | PN ---
Progress Note, Physician History of Present Illness: Pt seen and examined at bedside. He is awake and alert. He denies shortness of breath. - Current Medication List Current Medications: Active Medications Acetaminophen (Tylenol -) 650 mg PO Q4H PRN PRN Reason: PAIN 1-3 Atorvastatin Calcium (Lipitor -) 10 mg PO HS [facility] Carvedilol (Coreg -) 6.25 mg PO BID [facility] Last Admin: 11/07/19 09:37 Dose: 6.25 mg Donepezil HCl (Aricept -) 10 mg PO HS [facility] Famotidine (Pepcid -) 20 mg PO HS [facility] Ampicillin Sodium/Sulbactam (Sodium 3 gm/ Sodium Chloride) 100 mls @ 200 mls/ hr IVPB DAILY [facility] Last Admin: 11/07/19 09:35 Dose: 200 mls/hr Insulin Aspart (Novolog Vial Sliding Scale -) 1 vial SQ [facility]; Protocol Last Admin: 11/07/19 12:25 Dose: Not Given Insulin Detemir (Levemir Vial) 10 units SQ HS [facility] Isosorbide Dinitrate (Isordil -) 20 mg PO BIDISORDIL [facility] Last Admin: 11/07/19 09:37 Dose: 20 mg Levothyroxine Sodium (Synthroid -) 125 mcg PO DAILY@0700 [facility] Pregabalin (Lyrica -) 50 mg PO DAILY [facility] Last Admin: 11/07/19 09:37 Dose: 50 mg - Objective Vital Signs: Vital Signs Temperature 97.6 F 11/07/19 14:00 Pulse Rate 74 11/07/19 14:00 Respiratory Rate 20 11/07/19 14:00 Blood Pressure 94/56 L 11/07/19 14:00 O2 Sat by Pulse Oximetry (%) 96 11/07/19 10:00 Constitutional: Yes: Calm Eyes: Yes: Conjunctiva Clear HENT: Yes: Atraumatic Neck: Yes: Supple Cardiovascular: Yes: S1, S2 Respiratory: Yes: On Nasal O2 Gastrointestinal: Yes: Soft Genitourinary: Yes: WNL Edema: No Neurological: Yes: Oriented Labs: CBC, BMP 11/07/19 05:45 11/07/19 05:45 INR, PTT INR 1.03 (0.83-1.09) 11/05/19 15:20 Problem List - Problems (1) Acute decompensated heart failure Code(s): I50.9 - HEART FAILURE, UNSPECIFIED (2) Pleural effusion Code(s): J90 - PLEURAL EFFUSION, NOT ELSEWHERE CLASSIFIED (3) ESRD (end stage renal disease) Code(s): N18.6 - END STAGE RENAL DISEASE Assessment/Plan Current Medications Generic Name Dose Route Start Last Admin Trade Name Freq PRN Reason Stop Dose Admin Acetaminophen 650 mg 11/07/19 07:49 Tylenol - PO Q4H PRN PAIN 1-3 Atorvastatin Calcium 10 mg 11/07/19 22:00 Lipitor - PO HS [facility] Carvedilol 6.25 mg 11/07/19 10:00 11/07/19 09:37 Coreg - PO 6.25 mg BID [facility] Administration Donepezil HCl 10 mg 11/07/19 22:00 Aricept - PO HS [facility] Famotidine 20 mg 11/07/19 22:00 Pepcid - PO HS [facility] Ampicillin Sodium/Sulbactam 100 mls @ 200 mls/hr 11/07/19 10:00 11/07/19 09: 35 Sodium 3 gm/ Sodium Chloride IVPB 200 mls/hr DAILY [facility] Administration Insulin Aspart 1 vial 11/07/19 11:00 11/07/19 12:25 Novolog Vial Sliding Scale - SQ Not Given ACHS [facility] Protocol Insulin Detemir 10 units 11/07/19 22:00 Levemir Vial SQ HS [facility] Isosorbide Dinitrate 20 mg 11/07/19 10:00 11/07/19 09:37 Isordil - PO 20 mg BIDISORDIL [facility] Administration Levothyroxine Sodium 125 mcg 11/08/19 07:00 Synthroid - PO DAILY@0700 [facility] Pregabalin 50 mg 11/07/19 10:00 11/07/19 09:37 Lyrica - PO 50 mg DAILY [facility] Administration Impression 1. ESRD 2. HTN 3. fluid overload 4. DM 5. hypothyroidism 6. pleural effusion 7. hyperkalemia Plan - HD tomorrow - renal diet - cont wound care - volume status greatly improved
[2019-11-07] MEDS: DONEPEZIL HCL 10 MG TABLET (FP) PO SCH (21:18)
[2019-11-07] MEDS: ATORVASTATIN CA 10 MG TABLET (FP) PO SCH (21:18)
[2019-11-07] MEDS: FAMOTIDINE 20 MG TABLET PO SCH (21:18)
[2019-11-07] MEDS: INSULIN (LEVEMIR) 100 UNITS/ML UNITS SQ SCH (21:25)
[2019-11-08] MEDS: LEVOTHYROXINE NA 125 MCG TABLET (FP) PO SCH (06:33)
[2019-11-08] MEDS: INSULIN SLIDING SCALE (NOVOLOG) 1 VIAL SQ SCH ×4 (06:41→21:59)
[2019-11-08] MEDS ORDERED: SODIUM CHLORIDE 250 ML IV PRN (08:00)
[2019-11-08] MEDS ORDERED: PT OWN MED DRAWER 7, Y5N ONE ×2 (08:47→17:17)
--- NOTE | 2019-11-08 08:48 | PN ---
Progress Note (short form) - Note Progress Note: RENAL Pt is awake and alert c/o pain in his foot Last Vital Signs Temp Pulse Resp BP Pulse Ox 98.5 F 60 18 100/57 L 94 L 11/08/19 07:25 11/08/19 08:00 11/08/19 08:00 11/08/19 08:00 11/07/19 20:27 lungs clear cvs s1s2 rr abd soft ext no edema, has dressing over right foot neuro a+o CBC, BMP 11/07/19 05:45 11/07/19 05:45 Current Medications Generic Name Dose Route Start Last Admin Trade Name Freq PRN Reason Stop Dose Admin Acetaminophen 650 mg 11/07/19 07:49 Tylenol - PO Q4H PRN PAIN 1-3 Atorvastatin Calcium 10 mg 11/07/19 22:00 11/07/19 21:18 Lipitor - PO 10 mg HS [facility] Administration Carvedilol 6.25 mg 11/07/19 10:00 11/07/19 21:18 Coreg - PO 6.25 mg BID [facility] Administration Donepezil HCl 10 mg 11/07/19 22:00 11/07/19 21:18 Aricept - PO 10 mg HS [facility] Administration Epoetin Yuan 6,000 unit/ 8,000 unit 11/08/19 09:00 Epoetin Yuan 2,000 unit IVPUSH 11/08/19 09:01 POSTDI ONE Famotidine 20 mg 11/07/19 22:00 11/07/19 21:18 Pepcid - PO 20 mg HS [facility] Administration Ampicillin Sodium/Sulbactam 100 mls @ 200 mls/hr 11/07/19 10:00 11/07/19 09: 35 Sodium 3 gm/ Sodium Chloride IVPB 200 mls/hr DAILY [facility] Administration Sodium Chloride 250 mls @ 3,000 mls/hr 11/08/19 08:00 Normal Saline - IV 11/09/19 07:59 PRN PRN Hypotension during Dialysis Insulin Aspart 1 vial 11/07/19 11:00 11/08/19 06:41 Novolog Vial Sliding Scale - SQ 2 units ACHS [facility] Administration Protocol Insulin Detemir 10 units 11/07/19 22:00 11/07/19 21:25 Levemir Vial SQ 10 units HS [facility] Administration Isosorbide Dinitrate 20 mg 11/07/19 10:00 11/07/19 18:26 Isordil - PO 20 mg BIDISORDIL [facility] Administration Levothyroxine Sodium 125 mcg 11/08/19 07:00 11/08/19 06:33 Synthroid - PO 125 mcg DAILY@0700 [facility] Administration Pregabalin 50 mg 11/07/19 10:00 11/07/19 09:37 Lyrica - PO 50 mg DAILY [facility] Administration Impression 1. ESRD 2. HTN 3. fluid overload 4. DM 5. hypothyroidism 6. pleural effusion 7. hyperkalemia 8. culture "presumptive pos MRSA" Plan - HD TIW, currently on HD - renal diet - cont wound care - analgesics - vanco MV
--- NOTE | 2019-11-08 08:51 | PN ---
Progress Note, Physician Chief Complaint: alert, denies CP or SOB TELE: Paced. Planned for HD today. - Current Medication List Current Medications: Active Medications Acetaminophen (Tylenol -) 650 mg PO Q4H PRN PRN Reason: PAIN 1-3 Atorvastatin Calcium (Lipitor -) 10 mg PO HS [facility] Last Admin: 11/07/19 21:18 Dose: 10 mg Carvedilol (Coreg -) 6.25 mg PO BID [facility] Last Admin: 11/07/19 21:18 Dose: 6.25 mg Donepezil HCl (Aricept -) 10 mg PO [facility] Last Admin: 11/07/19 21:18 Dose: 10 mg Epoetin Yuan 6,000 unit/ (Epoetin Yuan 2,000 unit) 8,000 unit IVPUSH POSTDI ONE Stop: 11/08/19 09:01 Famotidine (Pepcid -) 20 mg PO [facility] Last Admin: 11/07/19 21:18 Dose: 20 mg Ampicillin Sodium/Sulbactam (Sodium 3 gm/ Sodium Chloride) 100 mls @ 200 mls/ hr IVPB DAILY [facility] Last Admin: 11/07/19 09:35 Dose: 200 mls/hr Sodium Chloride (Normal Saline -) 250 mls @ 3,000 mls/hr IV PRN PRN PRN Reason: Hypotension during Dialysis Stop: 11/09/19 07:59 Insulin Aspart (Novolog Vial Sliding Scale -) 1 vial SQ [facility]; Protocol Last Admin: 11/08/19 06:41 Dose: 2 units Insulin Detemir (Levemir Vial) 10 units SQ [facility] Last Admin: 11/07/19 21:25 Dose: 10 units Isosorbide Dinitrate (Isordil -) 20 mg PO BIDISORDIL [facility] Last Admin: 11/07/19 18:26 Dose: 20 mg Levothyroxine Sodium (Synthroid -) 125 mcg PO DAILY@0700 [facility] Last Admin: 11/08/19 06:33 Dose: 125 mcg Pregabalin (Lyrica -) 50 mg PO DAILY [facility] Last Admin: 11/07/19 09:37 Dose: 50 mg - Objective Vital Signs: Vital Signs Temperature 98.5 F 11/08/19 07:25 Pulse Rate 60 11/08/19 08:00 Respiratory Rate 18 11/08/19 08:00 Blood Pressure 100/57 L 11/08/19 08:00 O2 Sat by Pulse Oximetry (%) 94 L 11/07/19 20:27 Constitutional: Yes: No Distress Cardiovascular: Yes: Regular Rate and Rhythm Respiratory: Yes: CTA Bilaterally Gastrointestinal: Yes: Soft (NT) Edema: No Neurological: Yes: Alert, Oriented ...Motor Strength: WNL Labs: CBC, BMP 11/07/19 05:45 11/07/19 05:45 INR, PTT INR 1.03 (0.83-1.09) 11/05/19 15:20 Microbiology 11/06/19 08:10 Foot - Right Heel Gram Stain - Final 11/06/19 08:10 Foot - Right Heel Wound Culture - Preliminary Presumptive Mrsa (Pbp2a Pos) Non Lactose Fermenting Gnb 11/03/19 14:20 Blood - Peripheral Venous Blood Culture - Preliminary NO GROWTH OBTAINED AFTER 96 HOURS, INCUBATION TO CONTINUE FOR 1 DAYS. 11/03/19 14:15 Blood - Peripheral Venous Blood Culture - Preliminary NO GROWTH OBTAINED AFTER 96 HOURS, INCUBATION TO CONTINUE FOR 1 DAYS. 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 08/2019 10 beat run of NSVT self- terminated w/o therapy. echo 08/2019 Moderate dilated with severely decreased LVEF 20-25%, preserved wall motion at base, rest of segments severely HK, mod-severe MR, mild TR, pacemaker RV, mild-mod AR, mild ao dilatation 4.1 cm cta chest: no diss/aneurysm, mod bl effs IMP/PLAN: 69 m hx dementia, htn, dm, syst chf s/p [place] biv icd, esrd on hd, here with sob. Acute systolic chf, biv icd: -lvef severely reduced (?ischemic vs nicm, recently came from [place]) -has biv icd placed 2013, nl fcn when checked here last month -vol status improved, cont HD per renal for vol management -cont coreg, nitrate -Will need ischemic evaluation if not recently done. Need to clarify history. HTN: -cont coreg, nitrate ESRD: -cont hd per renal Elevated trops: -borderline trop elevation with flat trend and nl ck, similar to prior baseline values, not c/w acs
[2019-11-08] MEDS ORDERED: EPOETIN ALFA 6,000 UNIT, EPOETIN ALFA 2,000 UNIT IVPUSH ONE (09:00)
[2019-11-08 09:04] LABS: HEMATOCRIT 29.7 % (35.4-49); HEMOGLOBIN 9.7 GM/dL (11.7-16.9); MCH 30.8 pg (25.7-33.7); MCHC 32.5 g/dl (32.0-35.9); MEAN CELL VOLUME 94.7 fl (80-96); MEAN PLT VOLUME 9.2 fl (7.5-11.1); PLATELET COUNT 103 K/MM3 (134-434); RBC 3.14 M/mm3 (4.00-5.60); RDW 16.8 % (11.9-15.9); WHITE BLOOD COUNT 4.1 K/mm3 (4.0-10.0)
[2019-11-08 09:27] LABS: BLOOD UREA NITROGEN 60.1 mg/dL (7-18); CALCIUM 7.7 mg/dL (8.5-10.1); CREATININE 5.1 mg/dL (0.55-1.3); POTASSIUM 4.2 mmol/L (3.5-5.1)
--- NOTE | 2019-11-08 09:30 | PN ---
Progress Note (short form) - Note Progress Note: alert being dialysed no complaints Vital Signs Period Temp Pulse Resp BP Sys/Palacios Pulse Ox Last 24 Hr 97.6 F-99.0 F 60-81 17-20 91-134/55-74 94-96 cor-rrr llungs clear abd soft,nt ext dressing intact right foot CBC, BMP 11/08/19 07:30 11/08/19 07:30 Microbiology 11/03/19 14:20 Blood - Peripheral Venous Blood Culture - Preliminary NO GROWTH OBTAINED AFTER 96 HOURS, INCUBATION TO CONTINUE FOR 1 DAYS. 11/03/19 14:15 Blood - Peripheral Venous Blood Culture - Preliminary NO GROWTH OBTAINED AFTER 96 HOURS, INCUBATION TO CONTINUE FOR 1 DAYS. 11/06/19 08:10 Foot - Right Heel Gram Stain - Final 11/06/19 08:10 Foot - Right Heel Wound Culture - Preliminary Presumptive Mrsa (Pbp2a Pos) Non Lactose Fermenting Gnb Laboratory Tests 11/05/19 11/07/19 06:00 05:45 Random Vancomycin 25.2 25.0 Current Medications Acetaminophen (Tylenol -) 650 mg PO Q4H PRN PRN Reason: PAIN 1-3 Atorvastatin Calcium (Lipitor -) 10 mg PO [facility] Last Admin: 11/07/19 21:18 Dose: 10 mg Carvedilol (Coreg -) 6.25 mg PO BID [facility] Last Admin: 11/07/19 21:18 Dose: 6.25 mg Donepezil HCl (Aricept -) 10 mg PO [facility] Last Admin: 11/07/19 21:18 Dose: 10 mg Famotidine (Pepcid -) 20 mg PO [facility] Last Admin: 11/07/19 21:18 Dose: 20 mg Ampicillin Sodium/Sulbactam (Sodium 3 gm/ Sodium Chloride) 100 mls @ 200 mls/ hr IVPB DAILY [facility] Last Admin: 11/07/19 09:35 Dose: 200 mls/hr Sodium Chloride (Normal Saline -) 250 mls @ 3,000 mls/hr IV PRN PRN PRN Reason: Hypotension during Dialysis Stop: 11/09/19 07:59 Insulin Aspart (Novolog Vial Sliding Scale -) 1 vial SQ [facility]; Protocol Last Admin: 11/08/19 06:41 Dose: 2 units Insulin Detemir (Levemir Vial) 10 units SQ [facility] Last Admin: 11/07/19 21:25 Dose: 10 units Isosorbide Dinitrate (Isordil -) 20 mg PO BIDISORDIL [facility] Last Admin: 11/07/19 18:26 Dose: 20 mg Levothyroxine Sodium (Synthroid -) 125 mcg PO DAILY@0700 [facility] Last Admin: 11/08/19 06:33 Dose: 125 mcg Pregabalin (Lyrica -) 50 mg PO DAILY [facility] Last Admin: 11/07/19 09:37 Dose: 50 mg a/p s/p debridement of heel 11/06-awaiting finl culture results, awaiting pathology continue vancomycin based on levels, proabable pseudomonas,spoke with micro- switch to zosyn esrd/hd
[2019-11-08] MEDS: PREGABALIN 50 MG CAPSULE PO SCH (11:09)
[2019-11-08] MEDS: CARVEDILOL 6.25 MG TABLET (FP) PO SCH ×2 (11:09→22:01)
[2019-11-08] MEDS: ISOSORBIDE DINITRATE 20 MG TABLET (FP) PO SCH ×2 (11:09→17:40)
[2019-11-08] MEDS ORDERED: PIPERACILLIN/TAZOBACTAM 2.25 GM VIAL IVPB ONE ×2 (11:16→17:10)
[2019-11-08] MEDS ORDERED: DEXTROSE 5%-WATER - 50 ML IVPB ONE ×2 (11:16→17:10)
[2019-11-08] MEDS: PIPERACILLIN/TAZOB 2.25 GM 2.25 GM in DEXTROSE 5%-WATER - 50 ML IVPB SCH ×2 (11:17→17:15)
--- NOTE | 2019-11-08 13:54 | PN ---
Progress Note (short form) - Note Progress Note: Patient is in bed with foot elevated Patient is sleeping. Post op dressing and is dry and intact Afebrile Waiting for final biopsy results Will change bandage on sunday Will follow
--- NOTE | 2019-11-08 14:37 | PN ---
Progress Note, Physician Chief Complaint: AWAKE ALERT FEELING BETTER - Current Medication List Current Medications: Active Medications Acetaminophen (Tylenol -) 650 mg PO Q4H PRN PRN Reason: PAIN 1-3 Atorvastatin Calcium (Lipitor -) 10 mg PO [facility] Last Admin: 11/07/19 21:18 Dose: 10 mg Carvedilol (Coreg -) 6.25 mg PO BID [facility] Last Admin: 11/08/19 11:09 Dose: 6.25 mg Donepezil HCl (Aricept -) 10 mg PO [facility] Last Admin: 11/07/19 21:18 Dose: 10 mg Famotidine (Pepcid -) 20 mg PO [facility] Last Admin: 11/07/19 21:18 Dose: 20 mg Sodium Chloride (Normal Saline -) 250 mls @ 3,000 mls/hr IV PRN PRN PRN Reason: Hypotension during Dialysis Stop: 11/09/19 07:59 Piperacillin Sod/Tazobactam (Sod 2.25 gm/ Dextrose) 50 mls @ 100 mls/hr IVPB Q8H-IV [facility]; Protocol Last Admin: 11/08/19 11:17 Dose: 100 mls/hr Insulin Aspart (Novolog Vial Sliding Scale -) 1 vial SQ [facility]; Protocol Last Admin: 11/08/19 11:22 Dose: 2 units Insulin Detemir (Levemir Vial) 10 units SQ [facility] Last Admin: 11/07/19 21:25 Dose: 10 units Isosorbide Dinitrate (Isordil -) 20 mg PO BIDISORDIL [facility] Last Admin: 11/08/19 11:09 Dose: 20 mg Levothyroxine Sodium (Synthroid -) 125 mcg PO DAILY@0700 [facility] Last Admin: 11/08/19 06:33 Dose: 125 mcg Pregabalin (Lyrica -) 50 mg PO DAILY [facility] Last Admin: 11/08/19 11:09 Dose: 50 mg - Objective Vital Signs: Vital Signs Temperature 98.5 F 11/08/19 07:25 Pulse Rate 82 11/08/19 10:50 Respiratory Rate 18 11/08/19 10:50 Blood Pressure 109/59 L 11/08/19 10:50 O2 Sat by Pulse Oximetry (%) 95 11/08/19 09:00 Constitutional: Yes: Mild Distress Cardiovascular: Yes: Regular Rate and Rhythm Respiratory: Yes: WNL Gastrointestinal: Yes: Distention Musculoskeletal: Yes: Muscle Weakness Extremities: Yes: Deformity (HEEL ULCER WITH DRY DRESSING) Integumentary: Yes: Pressure Ulcer Wound/Incision: Yes: Dressing Dry and Intact Neurological: Yes: Pre-Existing Deficit Labs: CBC, BMP 11/08/19 07:30 11/08/19 07:30 INR, PTT INR 1.03 (0.83-1.09) 11/05/19 15:20 Problem List - Problems (1) Elevated troponin Code(s): R79.89 - OTHER SPECIFIED ABNORMAL FINDINGS OF BLOOD CHEMISTRY (2) Hyperkalemia Code(s): E87.5 - HYPERKALEMIA (3) Acute decompensated heart failure Code(s): I50.9 - HEART FAILURE, UNSPECIFIED (4) COPD (chronic obstructive pulmonary disease) Code(s): J44.9 - CHRONIC OBSTRUCTIVE PULMONARY DISEASE, UNSPECIFIED (5) Heel ulcer Code(s): L97.409 - NON-PRS CHRONIC ULCER OF UNSP HEEL AND MIDFOOT W UNSP SEVERT Qualifiers: Laterality: right (6) Pleural effusion Code(s): J90 - PLEURAL EFFUSION, NOT ELSEWHERE CLASSIFIED (7) Right foot pain Code(s): M79.671 - PAIN IN RIGHT FOOT (8) Biventricular ICD (implantable cardioverter-defibrillator) in place Code(s): Z95.810 - PRESENCE OF AUTOMATIC (IMPLANTABLE) CARDIAC DEFIBRILLATOR (9) Cardiomyopathy Code(s): I42.9 - CARDIOMYOPATHY, UNSPECIFIED Qualifiers: (10) Diabetes Code(s): E11.9 - TYPE 2 DIABETES MELLITUS WITHOUT COMPLICATIONS Qualifiers: Diabetes mellitus type: type 2 Chronic kidney disease stage: on chronic dialysis (11) ESRD (end stage renal disease) Code(s): N18.6 - END STAGE RENAL DISEASE (12) Hypothyroid Code(s): E03.9 - HYPOTHYROIDISM, UNSPECIFIED Qualifiers: Hypothyroidism type: unspecified Qualified Code(s): E03.9 - Hypothyroidism , unspecified (13) 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
[2019-11-08] MEDS ORDERED: EPOETIN ALFA 2,000 UNIT/1 ML VIAL IVPUSH ONE (16:25)
[2019-11-08] MEDS: INSULIN (LEVEMIR) 100 UNITS/ML UNITS SQ SCH (21:59)
[2019-11-08] MEDS: DONEPEZIL HCL 10 MG TABLET (FP) PO SCH (22:00)
[2019-11-08] MEDS: ATORVASTATIN CA 10 MG TABLET (FP) PO SCH (22:01)
[2019-11-08] MEDS: FAMOTIDINE 20 MG TABLET PO SCH (22:01)
[2019-11-08] MEDS: ACETAMINOPHEN 325 MG TABLET (FP) PO PRN (23:18)
[2019-11-09] MEDS ORDERED: PIPERACILLIN/TAZOBACTAM 2.25 GM VIAL IVPB ONE ×3 (01:25→18:19)
[2019-11-09] MEDS ORDERED: DEXTROSE 5%-WATER - 50 ML IVPB ONE ×3 (01:25→18:19)
[2019-11-09] MEDS: PIPERACILLIN/TAZOB 2.25 GM 2.25 GM in DEXTROSE 5%-WATER - 50 ML IVPB SCH ×3 (01:34→18:37)
[2019-11-09] MEDS: LEVOTHYROXINE NA 125 MCG TABLET (FP) PO SCH (06:21)
[2019-11-09] MEDS: INSULIN SLIDING SCALE (NOVOLOG) 1 VIAL SQ SCH ×4 (06:30→23:06)
[2019-11-09] MEDS ORDERED: traMADol HCL 50 MG TABLET PO ONE (06:33)
--- NOTE | 2019-11-09 08:24 | PN ---
Progress Note, Physician Chief Complaint: comfortable No CP or SOB TELE: Paced, short 3 beat run NSVT History of Present Illness: He states he did have a cath in [place] some years ago. Reports having one stent. Has not had any repeat cath or recent stress test. - Current Medication List Current Medications: Active Medications Acetaminophen (Tylenol -) 650 mg PO Q4H PRN PRN Reason: PAIN 1-3 Last Admin: 11/08/19 23:18 Dose: 650 mg Atorvastatin Calcium (Lipitor -) 10 mg PO [facility] Last Admin: 11/08/19 22:01 Dose: 10 mg Carvedilol (Coreg -) 6.25 mg PO BID [facility] Last Admin: 11/08/19 22:01 Dose: 6.25 mg Donepezil HCl (Aricept -) 10 mg PO [facility] Last Admin: 11/08/19 22:00 Dose: 10 mg Famotidine (Pepcid -) 20 mg PO [facility] Last Admin: 11/08/19 22:01 Dose: 20 mg Piperacillin Sod/Tazobactam (Sod 2.25 gm/ Dextrose) 50 mls @ 100 mls/hr IVPB Q8H-IV [facility]; Protocol Last Admin: 11/09/19 01:34 Dose: 100 mls/hr Insulin Aspart (Novolog Vial Sliding Scale -) 1 vial SQ [facility]; Protocol Last Admin: 11/09/19 06:30 Dose: 4 units Insulin Detemir (Levemir Vial) 10 units SQ [facility] Last Admin: 11/08/19 21:59 Dose: 10 units Isosorbide Dinitrate (Isordil -) 20 mg PO BIDISORDIL [facility] Last Admin: 11/08/19 17:40 Dose: 20 mg Levothyroxine Sodium (Synthroid -) 125 mcg PO DAILY@0700 [facility] Last Admin: 11/09/19 06:21 Dose: 125 mcg Pregabalin (Lyrica -) 50 mg PO DAILY [facility] Last Admin: 11/08/19 11:09 Dose: 50 mg - Objective Vital Signs: Vital Signs Temperature 98.2 F 11/09/19 06:00 Pulse Rate 75 11/09/19 06:00 Respiratory Rate 22 H 11/09/19 06:00 Blood Pressure 112/63 11/09/19 06:00 O2 Sat by Pulse Oximetry (%) 100 11/08/19 22:00 Constitutional: Yes: Calm Cardiovascular: Yes: Regular Rate and Rhythm Respiratory: Yes: CTA Bilaterally Gastrointestinal: Yes: Soft Edema: No Neurological: Yes: Alert Labs: CBC, BMP 11/08/19 07:30 11/08/19 07:30 INR, PTT INR 1.03 (0.83-1.09) 11/05/19 15:20 Microbiology 11/06/19 08:10 Foot - Right Heel Gram Stain - Final 11/06/19 08:10 Foot - Right Heel Wound Culture - Final S Aureus Pseudomonas Aeruginosa 11/03/19 14:20 Blood - Peripheral Venous Blood Culture - Final NO GROWTH AFTER 5 DAYS INCUBATION 11/03/19 14:15 Blood - Peripheral Venous Blood Culture - Final NO GROWTH AFTER 5 DAYS INCUBATION Laboratory Tests 11/08/19 11/08/19 07:30 07:30 WBC 4.1 Hgb 9.7 L Plt Count 103 L Sodium 139 Potassium 4.2 - ....Imaging EKG: Image Reviewed Assessment/Plan DATA: echo 09/2019: lve, lvef 20-25%, global hk, lae, nl rv, mod mr, mod tr, mild ar , rvsp 40-50 09/19/2019 [employer] interrogated, 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 08/2019 10 beat run of NSVT self- terminated w/o therapy. echo 08/2019 Moderate dilated with severely decreased LVEF 20-25%, preserved wall motion at base, rest of segments severely HK, mod-severe MR, mild TR, pacemaker RV, mild-mod AR, mild ao dilatation 4.1 cm cta chest: no diss/aneurysm, mod bl effs IMP/PLAN: 69 m hx dementia, htn, dm, syst chf s/p [place] biv icd, esrd on hd, cad w/ reported history of PCI (> 1 year ago in [place]) here with sob. Acute systolic chf, biv icd: -lvef severely reduced (reports having had stent some years ago in [place]) -has biv icd placed 2013, nl fcn when checked here last month -vol status improved, cont HD per renal for vol management -cont coreg, nitrate -Will need ischemic evaluation prior to discharge. Will plan for Lexiscan MPI. HTN: controlled. -cont coreg, nitrate ESRD: -cont hd per renal Elevated trops: -borderline trop elevation with flat trend and nl ck, similar to prior baseline values, not c/w acs -given his hx of prior stent ([place]), will further risk stratify with Lexiscan MPI -Add low dose ASA, continue statin
[2019-11-09] MEDS: CARVEDILOL 6.25 MG TABLET (FP) PO SCH ×2 (09:19→22:27)
[2019-11-09] MEDS: PREGABALIN 50 MG CAPSULE PO SCH (09:19)
[2019-11-09] MEDS ORDERED: PT OWN MED DRAWER 7, Y5N ONE ×2 (09:23→19:08)
[2019-11-09] MEDS: ISOSORBIDE DINITRATE 20 MG TABLET (FP) PO SCH ×2 (09:25→19:08)
[2019-11-09] MEDS: ASPIRIN 81 MG CHEWABLE TABLETS PO SCH (09:25)
--- NOTE | 2019-11-09 09:25 | PN ---
Progress Note (short form) - Note Progress Note: RENAL Pt is awake and alert c/o pain in his foot but its better today was looking for his nasal cannula and was around his head Last Vital Signs Temp Pulse Resp BP Pulse Ox 98.2 F 65 19 116/58 L 100 11/09/19 06:00 11/09/19 09:11 11/09/19 09:11 11/09/19 09:11 11/09/19 09:00 lungs clear cvs s1s2 rr abd soft ext no edema, has dressing over right foot neuro a+o CBC, BMP 11/08/19 07:30 11/08/19 07:30 Current Medications Generic Name Dose Route Start Last Admin Trade Name Freq PRN Reason Stop Dose Admin Acetaminophen 650 mg 11/07/19 07:49 11/08/19 23:18 Tylenol - PO 650 mg Q4H PRN Administration PAIN 1-3 Aspirin 81 mg 11/09/19 10:00 Asa - PO DAILY [facility] Atorvastatin Calcium 10 mg 11/07/19 22:00 11/08/19 22:01 Lipitor - PO 10 mg HS [facility] Administration Carvedilol 6.25 mg 11/07/19 10:00 11/08/19 22:01 Coreg - PO 6.25 mg BID [facility] Administration Donepezil HCl 10 mg 11/07/19 22:00 11/08/19 22:00 Aricept - PO 10 mg HS [facility] Administration Famotidine 20 mg 11/07/19 22:00 11/08/19 22:01 Pepcid - PO 20 mg HS [facility] Administration Piperacillin Sod/Tazobactam 50 mls @ 100 mls/hr 11/08/19 10:00 11/09/19 01:34 Sod 2.25 gm/ Dextrose IVPB 100 mls/hr Q8H-IV [facility] Administration Protocol Insulin Aspart 1 vial 11/07/19 11:00 11/09/19 06:30 Novolog Vial Sliding Scale - SQ 4 units ACHS [facility] Administration Protocol Insulin Detemir 10 units 11/07/19 22:00 11/08/19 21:59 Levemir Vial SQ 10 units HS [facility] Administration Isosorbide Dinitrate 20 mg 11/07/19 10:00 11/08/19 17:40 Isordil - PO 20 mg BIDISORDIL [facility] Administration Levothyroxine Sodium 125 mcg 11/08/19 07:00 01/26/20 06:21 Synthroid - PO 125 mcg DAILY@0700 [facility] Administration Pregabalin 50 mg 11/07/19 10:00 11/08/19 11:09 Lyrica - PO 50 mg DAILY [facility] Administration Impression 1. ESRD 2. HTN 3. fluid overload 4. DM 5. hypothyroidism 6. pleural effusion 7. hyperkalemia 8. culture mrsa and pseudomonas Plan - HD TIW, was dialyzed yesterday - renal diet - cont wound care - analgesics - vanco/pip [facility]
--- NOTE | 2019-11-09 09:42 | PN ---
Progress Note (short form) - Note Progress Note: alert no complaints awaiting podiatry for wound change-still with postop dressing Vital Signs Period Temp Pulse Resp BP Sys/Palacios Pulse Ox Last 24 Hr 98 F-98.4 F 60-96 13-24 94-132/54-74 100-100 cor-rrr lungs clear abd soft,nt bandage on foot CBC, BMP 11/08/19 07:30 11/08/19 07:30 Microbiology 11/03/19 14:20 Blood - Peripheral Venous Blood Culture - Final NO GROWTH AFTER 5 DAYS INCUBATION 11/03/19 14:15 Blood - Peripheral Venous Blood Culture - Final NO GROWTH AFTER 5 DAYS INCUBATION 11/06/19 08:10 Foot - Right Heel Gram Stain - Final 11/06/19 08:10 Foot - Right Heel Wound Culture - Final Mr S Aureus Pseudomonas Aeruginosa Laboratory Tests 11/05/19 11/07/19 11/09/19 06:00 05:45 05:20 Random Vancomycin 25.2 25.0 21.1 a/p s/p debridement of heel 11/06- awaiting pathology, awaiting dressing change continue vancomycin based on levels,zosyn day #2 esrd/hd
--- NOTE | 2019-11-09 09:43 | PN ---
Progress Note, Physician Chief Complaint: AWAKE ALERT DENIES FEVER OR CHILLS OR ANY OTHER COMPLAINTS - Current Medication List Current Medications: Active Medications Acetaminophen (Tylenol -) 650 mg PO Q4H PRN PRN Reason: PAIN 1-3 Last Admin: 11/08/19 23:18 Dose: 650 mg Aspirin (Asa -) 81 mg PO [facility]ILY [facility] Last Admin: 11/09/19 09:25 Dose: 81 mg Atorvastatin Calcium (Lipitor -) 10 mg PO [facility] Last Admin: 11/08/19 22:01 Dose: 10 mg Carvedilol (Coreg -) 6.25 mg PO BID [facility] Last Admin: 11/09/19 09:19 Dose: 6.25 mg Donepezil HCl (Aricept -) 10 mg PO [facility] Last Admin: 11/08/19 22:00 Dose: 10 mg Famotidine (Pepcid -) 20 mg PO [facility] Last Admin: 11/08/19 22:01 Dose: 20 mg Piperacillin Sod/Tazobactam (Sod 2.25 gm/ Dextrose) 50 mls @ 100 mls/hr IVPB Q8H-IV [facility]; Protocol Last Admin: 11/09/19 09:19 Dose: 100 mls/hr Insulin Aspart (Novolog Vial Sliding Scale -) 1 vial SQ [facility]; Protocol Last Admin: 11/09/19 06:30 Dose: 4 units Insulin Detemir (Levemir Vial) 10 units SQ [facility] Last Admin: 11/08/19 21:59 Dose: 10 units Isosorbide Dinitrate (Isordil -) 20 mg PO BIDISORDIL [facility] Last Admin: 11/09/19 09:25 Dose: 20 mg Levothyroxine Sodium (Synthroid -) 125 mcg PO DAILY@0700 [facility] Last Admin: 11/09/19 06:21 Dose: 125 mcg Pregabalin (Lyrica -) 50 mg PO DAILY [facility] Last Admin: 11/09/19 09:19 Dose: 50 mg - Objective Vital Signs: Vital Signs Temperature 98.2 F 11/09/19 06:00 Pulse Rate 65 11/09/19 09:11 Respiratory Rate 19 11/09/19 09:11 Blood Pressure 116/58 L 11/09/19 09:11 O2 Sat by Pulse Oximetry (%) 100 11/09/19 09:00 Constitutional: Yes: No Distress Cardiovascular: Yes: Regular Rate and Rhythm Respiratory: Yes: Diminished, On Nasal O2 Gastrointestinal: Yes: Soft Genitourinary: Yes: Other Extremities: Yes: Other Wound/Incision: Yes: Dressing Dry and Intact (RIGHT HEEL DRESSING CLEAN NO DISCHARGE) Labs: CBC, BMP 11/08/19 07:30 11/08/19 07:30 INR, PTT INR 1.03 (0.83-1.09) 11/05/19 15:20 Problem List - Problems (1) Elevated troponin Code(s): R79.89 - OTHER SPECIFIED ABNORMAL FINDINGS OF BLOOD CHEMISTRY (2) Hyperkalemia Code(s): E87.5 - HYPERKALEMIA (3) Acute decompensated heart failure Code(s): I50.9 - HEART FAILURE, UNSPECIFIED (4) COPD (chronic obstructive pulmonary disease) Code(s): J44.9 - CHRONIC OBSTRUCTIVE PULMONARY DISEASE, UNSPECIFIED (5) Heel ulcer Code(s): L97.409 - NON-PRS CHRONIC ULCER OF UNSP HEEL AND MIDFOOT W UNSP SEVERT (6) Pleural effusion Code(s): J90 - PLEURAL EFFUSION, NOT ELSEWHERE CLASSIFIED (7) Right foot pain Code(s): M79.671 - PAIN IN RIGHT FOOT (8) Biventricular ICD (implantable cardioverter-defibrillator) in place Code(s): Z95.810 - PRESENCE OF AUTOMATIC (IMPLANTABLE) CARDIAC DEFIBRILLATOR (9) Cardiomyopathy Code(s): I42.9 - CARDIOMYOPATHY, UNSPECIFIED Qualifiers: (10) Diabetes Code(s): E11.9 - TYPE 2 DIABETES MELLITUS WITHOUT COMPLICATIONS (11) ESRD (end stage renal disease) Code(s): N18.6 - END STAGE RENAL DISEASE (12) Hypothyroid Code(s): E03.9 - HYPOTHYROIDISM, UNSPECIFIED Qualifiers: Qualified Code(s): E03.9 - Hypothyroidism, unspecified (13) 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 ZOSYN IV PER ID HD PER RENAL MONITOR LABS OPTIMIZE NUTRITION FOR WOUND HEALING ADD VIT C/ZINC/MVI
[2019-11-09] MEDS: ZINC SULFATE 220 MG CAPSULE (FP) PO SCH (10:22)
[2019-11-09] MEDS: ASCORBIC ACID 250 MG TABLET (FP) PO SCH (10:22)
--- NOTE | 2019-11-09 11:29 | PN ---
Progress Note (short form) - Note Progress Note: Patient seen at bedside and is awake and alert Patient feels a little better today Dressing is dry and intact Bandage was changed and wound looked good - drainage _ erythema Betadine with dsd was applied Continue IVABX as per infectious disease Dr Bobo will follow
[2019-11-09] MEDS: ACETAMINOPHEN 325 MG TABLET (FP) PO PRN (12:57)
[2019-11-09] MEDS: traMADol HCL 50 MG TABLET PO PRN (18:58)
[2019-11-09] MEDS: FAMOTIDINE 20 MG TABLET PO SCH (22:27)
[2019-11-09] MEDS: ATORVASTATIN CA 10 MG TABLET (FP) PO SCH (22:27)
[2019-11-09] MEDS: DONEPEZIL HCL 10 MG TABLET (FP) PO SCH (22:27)
[2019-11-09] MEDS: INSULIN (LEVEMIR) 100 UNITS/ML UNITS SQ SCH (23:00)
[2019-11-10] MEDS ORDERED: PIPERACILLIN/TAZOBACTAM 2.25 GM VIAL IVPB ONE ×3 (01:22→16:06)
[2019-11-10] MEDS ORDERED: DEXTROSE 5%-WATER - 50 ML IVPB ONE ×3 (01:22→16:06)
[2019-11-10] MEDS: PIPERACILLIN/TAZOB 2.25 GM 2.25 GM in DEXTROSE 5%-WATER - 50 ML IVPB SCH ×3 (01:59→17:09)
[2019-11-10] MEDS: LEVOTHYROXINE NA 125 MCG TABLET (FP) PO SCH (06:31)
[2019-11-10] MEDS: INSULIN SLIDING SCALE (NOVOLOG) 1 VIAL SQ SCH ×4 (06:41→21:55)
[2019-11-10 06:50] LABS: HEMATOCRIT 32.4 % (35.4-49); HEMOGLOBIN 10.3 GM/dL (11.7-16.9); MCH 30.3 pg (25.7-33.7); MCHC 31.7 g/dl (32.0-35.9); MEAN CELL VOLUME 95.4 fl (80-96); MEAN PLT VOLUME 9.8 fl (7.5-11.1); PLATELET COUNT 120 K/MM3 (134-434); RDW 16.8 % (11.9-15.9); WHITE BLOOD COUNT 4.8 K/mm3 (4.0-10.0)
[2019-11-10 07:38] LABS: ALBUMIN 2.1 g/dl (3.4-5.0); BILIRUBIN,TOTAL 0.4 mg/dL (0.2-1); BLOOD UREA NITROGEN 59.1 mg/dL (7-18); CALCIUM 7.7 mg/dL (8.5-10.1); CREATININE 5.6 mg/dL (0.55-1.3); POTASSIUM 4.5 mmol/L (3.5-5.1); TOT PROT 5.4 g/dl (6.4-8.2)
--- NOTE | 2019-11-10 09:02 | PN ---
Progress Note, Physician - Current Medication List Current Medications: Active Medications Acetaminophen (Tylenol -) 650 mg PO Q4H PRN PRN Reason: PAIN 1-3 Last Admin: 11/09/19 12:57 Dose: 650 mg Ascorbic Acid (Vitamin C -) 250 mg PO DAILY [facility] Last Admin: 11/09/19 10:22 Dose: 250 mg Aspirin (Asa -) 81 mg PO DAILY [facility] Last Admin: 11/09/19 09:25 Dose: 81 mg Atorvastatin Calcium (Lipitor -) 10 mg PO [facility] Last Admin: 11/09/19 22:27 Dose: 10 mg Carvedilol (Coreg -) 6.25 mg PO BID [facility] Last Admin: 11/09/19 22:27 Dose: 6.25 mg Donepezil HCl (Aricept -) 10 mg PO [facility] Last Admin: 11/09/19 22:27 Dose: 10 mg Famotidine (Pepcid -) 20 mg PO [facility] Last Admin: 11/09/19 22:27 Dose: 20 mg Piperacillin Sod/Tazobactam (Sod 2.25 gm/ Dextrose) 50 mls @ 100 mls/hr IVPB Q8H-IV [facility]; Protocol Last Admin: 11/10/19 01:59 Dose: 100 mls/hr Insulin Aspart (Novolog Vial Sliding Scale -) 1 vial SQ [facility]; Protocol Last Admin: 11/10/19 06:41 Dose: 2 units Insulin Detemir (Levemir Vial) 10 units SQ [facility] Last Admin: 11/09/19 23:00 Dose: 10 units Isosorbide Dinitrate (Isordil -) 20 mg PO BIDISORDIL [facility] Last Admin: 11/09/19 19:08 Dose: 20 mg Levothyroxine Sodium (Synthroid -) 125 mcg PO DAILY@0700 [facility] Last Admin: 11/10/19 06:31 Dose: 125 mcg Multivit/Ca Carb/B Cmplx/FA/Prenat (Nephro-Domenico -) 1 tablet PO DAILY [facility] Pregabalin (Lyrica -) 50 mg PO DAILY [facility] Last Admin: 11/09/19 09:19 Dose: 50 mg Tramadol HCl (Ultram -) 50 mg PO Q6H PRN PRN Reason: PAIN LEVEL 7 - 10 Last Admin: 11/09/19 18:58 Dose: 50 mg Zinc Sulfate (Orazinc -) 220 mg PO DAILY [facility] Last Admin: 11/09/19 10:22 Dose: 220 mg - Objective Vital Signs: Vital Signs Temperature 97.5 F L 11/09/19 22:00 Pulse Rate 62 11/10/19 08:00 Respiratory Rate 19 11/10/19 08:00 Blood Pressure 105/66 11/10/19 08:00 O2 Sat by Pulse Oximetry (%) 100 11/09/19 21:00 Cardiovascular: Yes: S1, S2 Respiratory: Yes: Regular, CTA Bilaterally Gastrointestinal: Yes: Normal Bowel Sounds, Soft Wound/Incision: Yes: Dressing Dry and Intact Labs: CBC, BMP 11/10/19 05:48 11/10/19 05:48 INR, PTT INR 1.03 (0.83-1.09) 11/05/19 15:20 Problem List - Problems (1) Heel ulcer Assessment/Plan: S/P RIGHT HEEL DEBRIDEMENT OF ABSCESS WILL F/U CX AND PATHOLOGY Microbiology 11/03/19 14:20 Blood - Peripheral Venous Blood Culture - Final NO GROWTH AFTER 5 DAYS INCUBATION 11/03/19 14:15 Blood - Peripheral Venous Blood Culture - Final NO GROWTH AFTER 5 DAYS INCUBATION 11/06/19 08:10 Foot - Right Heel Gram Stain - Final 11/06/19 08:10 Foot - Right Heel Wound Culture - Final S Aureus Pseudomonas Aeruginosa IV ABX PER ID--WILL DC ONCE CLEARED BY ID DVT PROPHYLAXIS - Note: Operative Date: 11/06/19 Pre-Operative Diagnosis: abscess with necrotic tissue right heel Operation: abscess I&D done, debridement of necrotic heel, /"iodoform packing all of right heel. Findings: drainage with necrotic tissue right heel Post-Operative Diagnosis: Same as Pre-op Surgeon: Flor Bobo Raise Miner: Cullen Castorena Code(s): L97.409 - NON-PRS CHRONIC ULCER OF UNSP HEEL AND MIDFOOT W UNSP SEVERT Qualifiers: Laterality: right (2) Acute decompensated heart failure Assessment/Plan: -Improved -HD as per renal -Seen by Cardiology -Troponin At baseline as previous, likely 2/2 to ESRD, not consistent with ACS -EKG-NSR -Echo 09/2019: LVEF 20-25%, global hyperkinesis, normal Right ventricle, mod mitral rregurg, mod tricuspid regurg, mild aortic regurg, right vent systolic pressure- 40-50 -For cardiac scan Code(s): I50.9 - HEART FAILURE, UNSPECIFIED (3) COPD (chronic obstructive pulmonary disease) Code(s): J44.9 - CHRONIC OBSTRUCTIVE PULMONARY DISEASE, UNSPECIFIED (4) Biventricular ICD (implantable cardioverter-defibrillator) in place Code(s): Z95.810 - PRESENCE OF AUTOMATIC (IMPLANTABLE) CARDIAC DEFIBRILLATOR (5) Diabetes Assessment/Plan: -[facility] -Last A1c 8.1 in 09/2019 -Levemir Code(s): E11.9 - TYPE 2 DIABETES MELLITUS WITHOUT COMPLICATIONS Qualifiers: Diabetes mellitus type: type 2 Chronic kidney disease stage: on chronic dialysis (6) ESRD (end stage renal disease) Assessment/Plan: -Nephrology on board -HD as per renal Code(s): N18.6 - END STAGE RENAL DISEASE
--- NOTE | 2019-11-10 09:18 | PN ---
Progress Note, Physician - Current Medication List Current Medications: Active Medications Acetaminophen (Tylenol -) 650 mg PO Q4H PRN PRN Reason: PAIN 1-3 Last Admin: 11/09/19 12:57 Dose: 650 mg Ascorbic Acid (Vitamin C -) 250 mg PO DAILY [facility] Last Admin: 11/09/19 10:22 Dose: 250 mg Aspirin (Asa -) 81 mg PO DAILY [facility] Last Admin: 11/09/19 09:25 Dose: 81 mg Atorvastatin Calcium (Lipitor -) 10 mg PO [facility] Last Admin: 11/09/19 22:27 Dose: 10 mg Carvedilol (Coreg -) 6.25 mg PO BID [facility] Last Admin: 11/09/19 22:27 Dose: 6.25 mg Donepezil HCl (Aricept -) 10 mg PO [facility] Last Admin: 11/09/19 22:27 Dose: 10 mg Famotidine (Pepcid -) 20 mg PO [facility] Last Admin: 11/09/19 22:27 Dose: 20 mg Piperacillin Sod/Tazobactam (Sod 2.25 gm/ Dextrose) 50 mls @ 100 mls/hr IVPB Q8H-IV [facility]; Protocol Last Admin: 11/10/19 01:59 Dose: 100 mls/hr Insulin Aspart (Novolog Vial Sliding Scale -) 1 vial SQ [facility]; Protocol Last Admin: 11/10/19 06:41 Dose: 2 units Insulin Detemir (Levemir Vial) 10 units SQ [facility] Last Admin: 11/09/19 23:00 Dose: 10 units Isosorbide Dinitrate (Isordil -) 20 mg PO BIDISORDIL [facility] Last Admin: 11/09/19 19:08 Dose: 20 mg Levothyroxine Sodium (Synthroid -) 125 mcg PO DAILY@0700 [facility] Last Admin: 11/10/19 06:31 Dose: 125 mcg Multivit/Ca Carb/B Cmplx/FA/Prenat (Nephro-Domenico -) 1 tablet PO DAILY [facility] Pregabalin (Lyrica -) 50 mg PO DAILY [facility] Last Admin: 11/09/19 09:19 Dose: 50 mg Tramadol HCl (Ultram -) 50 mg PO Q6H PRN PRN Reason: PAIN LEVEL 7 - 10 Last Admin: 11/09/19 18:58 Dose: 50 mg Zinc Sulfate (Orazinc -) 220 mg PO DAILY [facility] Last Admin: 11/09/19 10:22 Dose: 220 mg - Objective Vital Signs: Vital Signs Temperature 97.5 F L 11/09/19 22:00 Pulse Rate 62 11/10/19 08:00 Respiratory Rate 19 11/10/19 08:00 Blood Pressure 105/66 11/10/19 08:00 O2 Sat by Pulse Oximetry (%) 100 11/09/19 21:00 Labs: CBC, BMP 11/10/19 05:48 11/10/19 05:48 INR, PTT INR 1.03 (0.83-1.09) 11/05/19 15:20 Assessment/Plan echo 09/2019: lve, lvef 20-25%, global hk, lae, nl rv, mod mr, mod tr, mild ar , rvsp 40-50 echo 08/2019 Moderate dilated with severely decreased LVEF 20-25%, preserved wall motion at base, rest of segments severely HK, mod-severe MR, mild TR, pacemaker RV, mild-mod AR, mild ao dilatation 4.1 cm cta chest: no diss/aneurysm, mod bl effs IMP/PLAN: 69 m hx dementia, htn, dm, syst chf s/p [place] biv icd, esrd on hd, cad w/ reported history of PCI (> 1 year ago in [place]) here with sob. Acute systolic chf, biv icd: -lvef severely reduced -has biv icd placed 2013, nl fcn when checked here -vol status improved, cont HD per renal for vol management -cont coreg, nitrate -Will need ischemic evaluation prior to discharge. Will plan for Lexiscan MPI. HTN: controlled. -cont coreg, nitrate ESRD: -cont hd per renal h/o CAD, elevated trops: -borderline trop elevation with flat trend and nl ck, similar to prior baseline values, not c/w acs -given his hx of prior stent ([place]), will further risk stratify with Lexiscan MPI -Add low dose ASA, continue statin
[2019-11-10] MEDS ORDERED: REGADENOSON 0.4 MG/5 ML PRE-FILLED SYRINGE IVPUSH ONE ×2 (09:43→10:00)
[2019-11-10] MEDS: CARVEDILOL 6.25 MG TABLET (FP) PO SCH ×2 (13:11→21:54)
[2019-11-10] MEDS: ZINC SULFATE 220 MG CAPSULE (FP) PO SCH (13:11)
[2019-11-10] MEDS: ASPIRIN 81 MG CHEWABLE TABLETS PO SCH (13:12)
[2019-11-10] MEDS: VITAMIN B COMP W-C 1 EA TABLET PO SCH ×2 (13:12→13:13)
[2019-11-10] MEDS: ISOSORBIDE DINITRATE 20 MG TABLET (FP) PO SCH ×2 (13:12→17:09)
[2019-11-10] MEDS: ASCORBIC ACID 250 MG TABLET (FP) PO SCH (13:13)
[2019-11-10] MEDS: PREGABALIN 50 MG CAPSULE PO SCH (13:13)
[2019-11-10] MEDS: traMADol HCL 50 MG TABLET PO PRN (13:28)
[2019-11-10] MEDS ORDERED: SODIUM CHLORIDE 250 ML IV PRN (14:30)
--- NOTE | 2019-11-10 14:30 | PN ---
Progress Note, Physician History of Present Illness: Pt seen and examined at bedside. He is awake and appears comfortable. - Current Medication List Current Medications: Active Medications Acetaminophen (Tylenol -) 650 mg PO Q4H PRN PRN Reason: PAIN 1-3 Last Admin: 11/09/19 12:57 Dose: 650 mg Ascorbic Acid (Vitamin C -) 250 mg PO DAILY [facility] Last Admin: 11/10/19 13:13 Dose: 250 mg Aspirin (Asa -) 81 mg PO DAILY [facility] Last Admin: 11/10/19 13:12 Dose: 81 mg Atorvastatin Calcium (Lipitor -) 10 mg PO HS [facility] Last Admin: 11/09/19 22:27 Dose: 10 mg Carvedilol (Coreg -) 6.25 mg PO BID [facility] Last Admin: 11/10/19 13:11 Dose: 6.25 mg Donepezil HCl (Aricept -) 10 mg PO [facility] Last Admin: 11/09/19 22:27 Dose: 10 mg Famotidine (Pepcid -) 20 mg PO [facility] Last Admin: 11/09/19 22:27 Dose: 20 mg Piperacillin Sod/Tazobactam (Sod 2.25 gm/ Dextrose) 50 mls @ 100 mls/hr IVPB Q8H-IV [facility]; Protocol Last Admin: 11/10/19 13:14 Dose: 100 mls/hr Insulin Aspart (Novolog Vial Sliding Scale -) 1 vial SQ [facility]; Protocol Last Admin: 11/10/19 13:14 Dose: Not Given Insulin Detemir (Levemir Vial) 10 units SQ [facility] Last Admin: 11/09/19 23:00 Dose: 10 units Isosorbide Dinitrate (Isordil -) 20 mg PO BIDISORDIL [facility] Last Admin: 11/10/19 13:12 Dose: 20 mg Levothyroxine Sodium (Synthroid -) 125 mcg PO DAILY@0700 [facility] Last Admin: 11/10/19 06:31 Dose: 125 mcg Multivit/Ca Carb/B Cmplx/FA/Prenat (Nephro-Domenico -) 1 tablet PO DAILY [facility] Last Admin: 11/10/19 13:13 Dose: 1 tablet Pregabalin (Lyrica -) 50 mg PO DAILY [facility] Last Admin: 11/10/19 13:13 Dose: 50 mg Zinc Sulfate (Orazinc -) 220 mg PO DAILY [facility] Last Admin: 11/10/19 13:11 Dose: 220 mg - Objective Vital Signs: Vital Signs Temperature 97.5 F L 11/09/19 22:00 Pulse Rate 64 11/10/19 13:06 Respiratory Rate 11/10/19 13:06 Blood Pressure 107/64 11/10/19 13:06 O2 Sat by Pulse Oximetry (%) 100 11/10/19 11:55 Constitutional: Yes: Calm Eyes: Yes: Conjunctiva Clear HENT: Yes: Atraumatic Neck: Yes: Supple Cardiovascular: Yes: S1, S2 Respiratory: Yes: CTA Bilaterally Gastrointestinal: Yes: Normal Bowel Sounds, Soft Genitourinary: Yes: WNL Musculoskeletal: Yes: WNL Edema: LLE: Trace, RLE: Trace Neurological: Yes: Oriented Psychiatric: Yes: Oriented Labs: CBC, BMP 11/10/19 05:48 11/10/19 05:48 INR, PTT INR 1.03 (0.83-1.09) 11/05/19 15:20 Problem List - Problems (1) Acute decompensated heart failure Code(s): I50.9 - HEART FAILURE, UNSPECIFIED (2) Pleural effusion Code(s): J90 - PLEURAL EFFUSION, NOT ELSEWHERE CLASSIFIED (3) ESRD (end stage renal disease) Code(s): N18.6 - END STAGE RENAL DISEASE Assessment/Plan Current Medications Generic Name Dose Route Start Last Admin Trade Name Freq PRN Reason Stop Dose Admin Acetaminophen 650 mg 11/07/19 07:49 11/09/19 12:57 Tylenol - PO 650 mg Q4H PRN Administration PAIN 1-3 Ascorbic Acid 250 mg 11/09/19 10:00 11/10/19 13:13 Vitamin C - PO 250 mg DAILY [facility] Administration Aspirin 81 mg 11/09/19 10:00 11/10/19 13:12 Asa - PO 81 mg DAILY [facility] Administration Atorvastatin Calcium 10 mg 11/07/19 22:00 11/09/19 22:27 Lipitor - PO 10 mg HS [facility] Administration Carvedilol 6.25 mg 11/07/19 10:00 11/10/19 13:11 Coreg - PO 6.25 mg BID [facility] Administration Donepezil HCl 10 mg 11/07/19 22:00 11/09/19 22:27 Aricept - PO 10 mg HS [facility] Administration Famotidine 20 mg 11/07/19 22:00 11/09/19 22:27 Pepcid - PO 20 mg HS [facility] Administration Piperacillin Sod/Tazobactam 50 mls @ 100 mls/hr 11/08/19 10:00 11/10/19 13:14 Sod 2.25 gm/ Dextrose IVPB 100 mls/hr Q8H-IV [facility] Administration Protocol Insulin Aspart 1 vial 11/07/19 11:00 11/10/19 13:14 Novolog Vial Sliding Scale - SQ Not Given ACHS [facility] Protocol Insulin Detemir 10 units 11/07/19 22:00 11/09/19 23:00 Levemir Vial SQ 10 units HS [facility] Administration Isosorbide Dinitrate 20 mg 11/07/19 10:00 11/10/19 13:12 Isordil - PO 20 mg BIDISORDIL [facility] Administration Levothyroxine Sodium 125 mcg 11/08/19 07:00 11/10/19 06:31 Synthroid - PO 125 mcg DAILY@0700 [facility] Administration Multivit/Ca Carb/B Cmplx/FA/Prenat 1 tablet 11/09/19 10:00 11/10/19 13:13 Nephro-Domenico - PO 1 tablet DAILY [facility] Administration Pregabalin 50 mg 11/07/19 10:00 11/10/19 13:13 Lyrica - PO 50 mg DAILY [facility] Administration Zinc Sulfate 220 mg 11/09/19 10:00 11/10/19 13:11 Orazinc - PO 220 mg DAILY [facility] Administration Impression 1. ESRD 2. HTN 3. fluid overload 4. DM 5. hypothyroidism 6. pleural effusion 7. hyperkalemia Plan - HD scheduled for tomorrow - renal diet - follow stress test results - cont wound care - volume status greatly improved
--- NOTE | 2019-11-10 15:37 | PN ---
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 Current Medications Acetaminophen (Tylenol -) 650 mg PO Q4H PRN PRN Reason: PAIN 1-3 Last Admin: 11/09/19 12:57 Dose: 650 mg Ascorbic Acid (Vitamin C -) 250 mg PO DAILY [facility] Last Admin: 11/10/19 13:13 Dose: 250 mg Aspirin (Asa -) 81 mg PO DAILY [facility] Last Admin: 11/10/19 13:12 Dose: 81 mg Atorvastatin Calcium (Lipitor -) 10 mg PO HS [facility] Last Admin: 11/09/19 22:27 Dose: 10 mg Carvedilol (Coreg -) 6.25 mg PO BID [facility] Last Admin: 11/10/19 13:11 Dose: 6.25 mg Donepezil HCl (Aricept -) 10 mg PO [facility] Last Admin: 11/09/19 22:27 Dose: 10 mg Epoetin Yuan (Epogen -) 8,000 unit IVPUSH ONCE ONE Stop: 11/11/19 14:31 Famotidine (Pepcid -) 20 mg PO [facility] Last Admin: 11/09/19 22:27 Dose: 20 mg Piperacillin Sod/Tazobactam (Sod 2.25 gm/ Dextrose) 50 mls @ 100 mls/hr IVPB Q8H-IV [facility]; Protocol Last Admin: 11/10/19 13:14 Dose: 100 mls/hr Sodium Chloride (Normal Saline -) 250 mls @ 3,000 mls/hr IV PRN PRN PRN Reason: Hypotension during Dialysis Stop: 11/11/19 14:30 Insulin Aspart (Novolog Vial Sliding Scale -) 1 vial SQ [facility]; Protocol Last Admin: 11/10/19 13:14 Dose: Not Given Insulin Detemir (Levemir Vial) 10 units SQ [facility] Last Admin: 11/09/19 23:00 Dose: 10 units Isosorbide Dinitrate (Isordil -) 20 mg PO BIDISORDIL [facility] Last Admin: 11/10/19 13:12 Dose: 20 mg Levothyroxine Sodium (Synthroid -) 125 mcg PO DAILY@0700 [facility] Last Admin: 11/10/19 06:31 Dose: 125 mcg Multivit/Ca Carb/B Cmplx/FA/Prenat (Nephro-Domenico -) 1 tablet PO DAILY [facility] Last Admin: 11/10/19 13:13 Dose: 1 tablet Pregabalin (Lyrica -) 50 mg PO DAILY [facility] Last Admin: 11/10/19 13:13 Dose: 50 mg Zinc Sulfate (Orazinc -) 220 mg PO DAILY [facility] Last Admin: 11/10/19 13:11 Dose: 220 mg Vital Signs Period Temp Pulse Resp BP Sys/Palacios Pulse Ox Last 24 Hr 97.5 F 62-76 16-21 100-117/64-78 100-100 Constitutional: Yes: Calm Cardiovascular: Yes: Regular Rate and Rhythm Respiratory: Yes: CTA Bilaterally Gastrointestinal: Yes: Soft Edema: No Neurological: Yes: Alert no jaundice, diaphoersis not agitated Assessment/Plan DATA: echo 09/2019: lve, lvef 20-25%, global hk, lae, nl rv, mod mr, mod tr, mild ar , rvsp 40-50 09/19/2019 [employer] interrogated, 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 08/2019 10 beat run of NSVT self- terminated w/o therapy. echo 08/2019 Moderate dilated with severely decreased LVEF 20-25%, preserved wall motion at base, rest of segments severely HK, mod-severe MR, mild TR, pacemaker RV, mild-mod AR, mild ao dilatation 4.1 cm cta chest: no diss/aneurysm, mod bl effs mibi 10/2019 severe scarring of anterior, septal, apical and inferior reyes c/w multivessel infarcts and ischemic dilated cardiomyopathy, EF 17% IMP/PLAN: 69 m hx dementia, htn, dm, syst chf s/p [place] biv icd, esrd on hd, cad w/ reported history of PCI (> 1 year ago in [place]) here with sob. Acute systolic chf, biv icd: -lvef severely reduced (reports having had stent some years ago in [place]) -has biv icd placed 2013, nl fcn when checked here last month -vol status improved, cont HD per renal for vol management -cont coreg, nitrate - mibi showed anterior, septal, apical and inferior scarring c/w multivessel infarct, no ischemia HTN: controlled. -cont coreg, nitrate ESRD: -cont hd per renal CAD s/p stent, Elevated trops: -borderline trop elevation with flat trend and nl ck, similar to prior baseline values, not c/w acs - cont aspirin, statin
--- NOTE | 2019-11-10 16:14 | PN ---
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 PRELIM MRSA, PSEUDOMONAS - Current Medication List Current Medications: Active Medications Acetaminophen (Tylenol -) 650 mg PO Q4H PRN PRN Reason: PAIN 1-3 Last Admin: 11/09/19 12:57 Dose: 650 mg Ascorbic Acid (Vitamin C -) 250 mg PO DAILY [facility] Last Admin: 11/10/19 13:13 Dose: 250 mg Aspirin (Asa -) 81 mg PO DAILY [facility] Last Admin: 11/10/19 13:12 Dose: 81 mg Atorvastatin Calcium (Lipitor -) 10 mg PO HS [facility] Last Admin: 11/09/19 22:27 Dose: 10 mg Carvedilol (Coreg -) 6.25 mg PO BID [facility] Last Admin: 11/10/19 13:11 Dose: 6.25 mg Donepezil HCl (Aricept -) 10 mg PO HS [facility] Last Admin: 11/09/19 22:27 Dose: 10 mg Epoetin Yuan (Epogen -) 8,000 unit IVPUSH ONCE ONE Stop: 11/11/19 14:31 Famotidine (Pepcid -) 20 mg PO HS [facility] Last Admin: 11/09/19 22:27 Dose: 20 mg Piperacillin Sod/Tazobactam (Sod 2.25 gm/ Dextrose) 50 mls @ 100 mls/hr IVPB Q8H-IV [facility]; Protocol Last Admin: 11/10/19 13:14 Dose: 100 mls/hr Sodium Chloride (Normal Saline -) 250 mls @ 3,000 mls/hr IV PRN PRN PRN Reason: Hypotension during Dialysis Stop: 11/11/19 14:30 Insulin Aspart (Novolog Vial Sliding Scale -) 1 vial SQ [facility]; Protocol Last Admin: 11/10/19 13:14 Dose: Not Given Insulin Detemir (Levemir Vial) 10 units SQ [facility] Last Admin: 11/09/19 23:00 Dose: 10 units Isosorbide Dinitrate (Isordil -) 20 mg PO BIDISORDIL [facility] Last Admin: 11/10/19 13:12 Dose: 20 mg Levothyroxine Sodium (Synthroid -) 125 mcg PO DAILY@0700 [facility] Last Admin: 11/10/19 06:31 Dose: 125 mcg Multivit/Ca Carb/B Cmplx/FA/Prenat (Nephro-Domenico -) 1 tablet PO DAILY [facility] Last Admin: 11/10/19 13:13 Dose: 1 tablet Pregabalin (Lyrica -) 50 mg PO DAILY [facility] Last Admin: 11/10/19 13:13 Dose: 50 mg Zinc Sulfate (Orazinc -) 220 mg PO DAILY [facility] Last Admin: 11/10/19 13:11 Dose: 220 mg - Objective Vital Signs: Vital Signs Temperature 97.5 F L 11/09/19 22:00 Pulse Rate 64 11/10/19 13:06 Respiratory Rate 11/10/19 13:06 Blood Pressure 107/64 11/10/19 13:06 O2 Sat by Pulse Oximetry (%) 100 11/10/19 11:55 Constitutional: Yes: No Distress Cardiovascular: Yes: Regular Rate and Rhythm, S1, S2 Respiratory: Yes: CTA Bilaterally Gastrointestinal: Yes: Normal Bowel Sounds, Soft. No: Tenderness Extremities: Yes: Other (DRY R HEEL ULCER LESS ERYTHEMA) Labs: CBC, BMP 11/10/19 05:48 11/10/19 05:48 INR, PTT INR 1.03 (0.83-1.09) 11/05/19 15:20 Assessment/Plan NECROTIC HEEL ULCER S/P DEBRIDEMENT HEEL CELLULITIS ESRD REDOSED VANCOMYCIN CHECK RANDOM LEVEL CONTINUE ZOSYN
[2019-11-10] MEDS: DONEPEZIL HCL 10 MG TABLET (FP) PO SCH (21:54)
[2019-11-10] MEDS: ATORVASTATIN CA 10 MG TABLET (FP) PO SCH (21:54)
[2019-11-10] MEDS: FAMOTIDINE 20 MG TABLET PO SCH (21:55)
[2019-11-10] MEDS: INSULIN (LEVEMIR) 100 UNITS/ML UNITS SQ SCH (21:55)
[2019-11-11] MEDS ORDERED: PIPERACILLIN/TAZOBACTAM 2.25 GM VIAL IVPB ONE ×3 (01:02→16:39)
[2019-11-11] MEDS ORDERED: DEXTROSE 5%-WATER - 50 ML IVPB ONE ×3 (01:03→16:39)
[2019-11-11] MEDS: PIPERACILLIN/TAZOB 2.25 GM 2.25 GM in DEXTROSE 5%-WATER - 50 ML IVPB SCH ×3 (03:34→19:02)
[2019-11-11] MEDS: LEVOTHYROXINE NA 125 MCG TABLET (FP) PO SCH (06:45)
[2019-11-11] MEDS: INSULIN SLIDING SCALE (NOVOLOG) 1 VIAL SQ SCH ×4 (06:45→21:49)
--- NOTE | 2019-11-11 08:07 | PN ---
Progress Note, Physician - Current Medication List Current Medications: Active Medications Acetaminophen (Tylenol -) 650 mg PO Q4H PRN PRN Reason: PAIN 1-3 Last Admin: 11/09/19 12:57 Dose: 650 mg Ascorbic Acid (Vitamin C -) 250 mg PO DAILY [facility] Last Admin: 11/10/19 13:13 Dose: 250 mg Aspirin (Asa -) 81 mg PO DAILY [facility] Last Admin: 11/10/19 13:12 Dose: 81 mg Atorvastatin Calcium (Lipitor -) 10 mg PO [facility] Last Admin: 11/10/19 21:54 Dose: 10 mg Carvedilol (Coreg -) 6.25 mg PO BID [facility] Last Admin: 11/10/19 21:54 Dose: 6.25 mg Donepezil HCl (Aricept -) 10 mg PO [facility] Last Admin: 11/10/19 21:54 Dose: 10 mg Epoetin Yuan (Epogen -) 8,000 unit IVPUSH ONCE ONE Stop: 11/11/19 14:31 Famotidine (Pepcid -) 20 mg PO [facility] Last Admin: 11/10/19 21:55 Dose: 20 mg Piperacillin Sod/Tazobactam (Sod 2.25 gm/ Dextrose) 50 mls @ 100 mls/hr IVPB Q8H-IV [facility]; Protocol Last Admin: 11/11/19 03:34 Dose: 100 mls/hr Sodium Chloride (Normal Saline -) 250 mls @ 3,000 mls/hr IV PRN PRN PRN Reason: Hypotension during Dialysis Stop: 11/11/19 14:30 Insulin Aspart (Novolog Vial Sliding Scale -) 1 vial SQ [facility]; Protocol Last Admin: 11/11/19 06:45 Dose: Not Given Insulin Detemir (Levemir Vial) 10 units SQ [facility] Last Admin: 11/10/19 21:55 Dose: 10 units Isosorbide Dinitrate (Isordil -) 20 mg PO BIDISORDIL [facility] Last Admin: 11/10/19 17:09 Dose: 20 mg Levothyroxine Sodium (Synthroid -) 125 mcg PO DAILY@0700 [facility] Last Admin: 11/11/19 06:45 Dose: 125 mcg Multivit/Ca Carb/B Cmplx/FA/Prenat (Nephro-Domenico -) 1 tablet PO DAILY [facility] Last Admin: 11/10/19 13:13 Dose: 1 tablet Pregabalin (Lyrica -) 50 mg PO DAILY [facility] Last Admin: 11/10/19 13:13 Dose: 50 mg Zinc Sulfate (Orazinc -) 220 mg PO DAILY [facility] Last Admin: 11/10/19 13:11 Dose: 220 mg - Objective Vital Signs: Vital Signs Temperature 98.2 F 11/11/19 07:05 Pulse Rate 64 11/11/19 07:10 Respiratory Rate 18 11/11/19 07:10 Blood Pressure 101/66 11/11/19 07:10 O2 Sat by Pulse Oximetry (%) 100 11/10/19 21:00 Cardiovascular: Yes: S1, S2 Respiratory: Yes: Regular, CTA Bilaterally Gastrointestinal: Yes: Normal Bowel Sounds, Soft Labs: CBC, BMP 11/10/19 05:48 11/10/19 05:48 INR, PTT INR 1.03 (0.83-1.09) 11/05/19 15:20 Problem List - Problems (1) Heel ulcer Assessment/Plan: S/P RIGHT HEEL DEBRIDEMENT OF ABSCESS WILL F/U CX AND PATHOLOGY Microbiology 11/03/19 14:20 Blood - Peripheral Venous Blood Culture - Final NO GROWTH AFTER 5 DAYS INCUBATION 11/03/19 14:15 Blood - Peripheral Venous Blood Culture - Final NO GROWTH AFTER 5 DAYS INCUBATION 11/06/19 08:10 Foot - Right Heel Gram Stain - Final 11/06/19 08:10 Foot - Right Heel Wound Culture - Final S Aureus Pseudomonas Aeruginosa IV ABX PER ID--WILL DC ONCE CLEARED BY ID DVT PROPHYLAXIS - Note: Operative Date: 11/06/19 Pre-Operative Diagnosis: abscess with necrotic tissue right heel Operation: abscess I&D done, debridement of necrotic heel, 1/"iodoform packing all of right heel. Findings: drainage with necrotic tissue right heel Post-Operative Diagnosis: Same as Pre-op Surgeon: Flor Bobo Junior Qa Analyst: Cullen Castorena Code(s): L97.409 - NON-PRS CHRONIC ULCER OF UNSP HEEL AND MIDFOOT W UNSP SEVERT Qualifiers: Laterality: right (2) Acute decompensated heart failure Assessment/Plan: -Improved -HD as per renal -Seen by Cardiology -Troponin At baseline as previous, likely 2/2 to ESRD, not consistent with ACS -EKG-NSR -Echo 09/2019: LVEF 20-25%, global hyperkinesis, normal Right ventricle, mod mitral rregurg, mod tricuspid regurg, mild aortic regurg, right vent systolic pressure- 40-50 -For cardiac scan--EF 17% Code(s): I50.9 - HEART FAILURE, UNSPECIFIED (3) COPD (chronic obstructive pulmonary disease) Code(s): J44.9 - CHRONIC OBSTRUCTIVE PULMONARY DISEASE, UNSPECIFIED (4) Biventricular ICD (implantable cardioverter-defibrillator) in place Code(s): Z95.810 - PRESENCE OF AUTOMATIC (IMPLANTABLE) CARDIAC DEFIBRILLATOR (5) Diabetes Assessment[facility]Plan: [facility] -Last A1c 8.1 in 09/2019 -Levemir Code(s): E11.9 - TYPE 2 DIABETES MELLITUS WITHOUT COMPLICATIONS Qualifiers: Diabetes mellitus type: type 2 Chronic kidney disease stage: on chronic dialysis (6) ESRD (end stage renal disease) Assessment/Plan: -Nephrology on board -HD as per renal Code(s): N18.6 - END STAGE RENAL DISEASE
[2019-11-11 08:37] LABS: HEMATOCRIT 31.6 % (35.4-49); HEMOGLOBIN 10.2 GM/dL (11.7-16.9); MCH 30.2 pg (25.7-33.7); MCHC 32.2 g/dl (32.0-35.9); MEAN CELL VOLUME 93.8 fl (80-96); MEAN PLT VOLUME 9.7 fl (7.5-11.1); PLATELET COUNT 127 K/MM3 (134-434); RBC 3.37 M/mm3 (4.00-5.60); RDW 16.6 % (11.9-15.9); WHITE BLOOD COUNT 5.5 K/mm3 (4.0-10.0)
[2019-11-11] MEDS ORDERED: EPOETIN ALFA-EPBX 2,000 UNIT/ML VIAL IVPUSH ONE (09:00)
[2019-11-11] MEDS ORDERED: EPOETIN ALFA 2,000 UNIT/1 ML VIAL IVPUSH ONE (09:00)
[2019-11-11 09:09] LABS: BILIRUBIN,TOTAL 0.6 mg/dL (0.2-1); BLOOD UREA NITROGEN 80.5 mg/dL (7-18); CALCIUM 7.6 mg/dL (8.5-10.1); CREATININE 6.6 mg/dL (0.55-1.3); TOT PROT 5.5 g/dl (6.4-8.2)
--- NOTE | 2019-11-11 09:57 | PN ---
Progress Note, Physician - Current Medication List Current Medications: Active Medications Acetaminophen (Tylenol -) 650 mg PO Q4H PRN PRN Reason: PAIN 1-3 Last Admin: 11/09/19 12:57 Dose: 650 mg Ascorbic Acid (Vitamin C -) 250 mg PO DAILY [facility] Last Admin: 11/10/19 13:13 Dose: 250 mg Aspirin (Asa -) 81 mg PO DAILY [facility] Last Admin: 11/10/19 13:12 Dose: 81 mg Atorvastatin Calcium (Lipitor -) 10 mg PO HS [facility] Last Admin: 11/10/19 21:54 Dose: 10 mg Carvedilol (Coreg -) 6.25 mg PO BID [facility] Last Admin: 11/10/19 21:54 Dose: 6.25 mg Donepezil HCl (Aricept -) 10 mg PO [facility] Last Admin: 11/10/19 21:54 Dose: 10 mg Famotidine (Pepcid -) 20 mg PO [facility] Last Admin: 11/10/19 21:55 Dose: 20 mg Piperacillin Sod/Tazobactam (Sod 2.25 gm/ Dextrose) 50 mls @ 100 mls/hr IVPB Q8H-IV [facility]; Protocol Last Admin: 11/11/19 03:34 Dose: 100 mls/hr Sodium Chloride (Normal Saline -) 250 mls @ 3,000 mls/hr IV PRN PRN PRN Reason: Hypotension during Dialysis Stop: 11/11/19 14:30 Insulin Aspart (Novolog Vial Sliding Scale -) 1 vial SQ [facility]; Protocol Last Admin: 11/11/19 06:45 Dose: Not Given Insulin Detemir (Levemir Vial) 10 units SQ [facility] Last Admin: 11/10/19 21:55 Dose: 10 units Isosorbide Dinitrate (Isordil -) 20 mg PO BIDISORDIL [facility] Last Admin: 11/10/19 17:09 Dose: 20 mg Levothyroxine Sodium (Synthroid -) 125 mcg PO DAILY@0700 [facility] Last Admin: 11/11/19 06:45 Dose: 125 mcg Multivit/Ca Carb/B Cmplx/FA/Prenat (Nephro-Domenico -) 1 tablet PO DAILY [facility] Last Admin: 11/10/19 13:13 Dose: 1 tablet Pregabalin (Lyrica -) 50 mg PO DAILY [facility] Last Admin: 11/10/19 13:13 Dose: 50 mg Zinc Sulfate (Orazinc -) 220 mg PO DAILY [facility] Last Admin: 11/10/19 13:11 Dose: 220 mg - Objective Vital Signs: Vital Signs Temperature 98.2 F 11/11/19 07:05 Pulse Rate 62 11/11/19 09:40 Respiratory Rate 18 11/11/19 09:40 Blood Pressure 117/66 11/11/19 09:40 O2 Sat by Pulse Oximetry (%) 99 11/11/19 08:19 Labs: CBC, BMP 11/11/19 08:31 11/11/19 08:31 INR, PTT INR 1.03 (0.83-1.09) 11/05/19 15:20 Assessment/Plan 11/10/2019: Lexiscan Myoview: Extensive multivessel scarring LVEF 17% 09/19/2019 [employer]TER [employer]-D interrogated, 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 08/2019 10 beat run of NSVT self- terminated w/o therapy. 09/12/2019 Moderate dilated with severely decreased LVEF 20-25%, preserved wall motion at base, rest of segments severely HK, mod-severe MR, mild TR, pacemaker RV, mild-mod AR, mild ao dilatation 4.1 cm 1. POD#8 Laparoscopic cholecystectomy 2. Acute Hypercapneic/Hypoxic Respiratory Failure 3. Acute on chronic systolic heart failure 4. Severe cardiomyopathy s/p CONVERTER SKIMMER/ICD 5. HTN 6. ESRD on HD (//) 7. Rt Foot cellulitis, r/o PAD 8. Type 2 DM 9. Hypothyroidism 10. Dementia PLAN: 1. HD per renal and f/u renal function and electrolytes, await outpt HD placement 2. Wound care and antibiotic coverage per ID. 3. Continue Carvedilol 6.25 mg BID and Losartan 50 mg QD with uptitrate as hemodynamics tolerate. Continue Isordil 20 mg BID and Hydralazine 25 mg BID echo 09/2019: lve, lvef 20-25%, global hk, lae, nl rv, mod mr, mod tr, mild ar , rvsp 40-50 09/19/2019 [employer]TER [employer]-D interrogated, 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 08/2019 10 beat run of NSVT self- terminated w/o therapy. echo 08/2019 Moderate dilated with severely decreased LVEF 20-25%, preserved wall motion at base, rest of segments severely HK, mod-severe MR, mild TR, pacemaker RV, mild-mod AR, mild ao dilatation 4.1 cm cta chest: no diss/aneurysm, mod bl effs mibi 10/2019 severe scarring of anterior, septal, apical and inferior reyes c/w multivessel infarcts and ischemic dilated cardiomyopathy, EF 17% IMP/PLAN: 69 m hx dementia, htn, dm, syst chf s/p [place] biv icd, esrd on hd, cad w/ reported history of PCI (> 1 year ago in [place]) here with sob. Acute systolic chf, biv icd: -lvef severely reduced (reports having had stent some years ago in [place]) -has biv icd placed 2013, nl fcn when checked here last month -vol status improved, cont HD per renal for vol management -cont coreg, nitrate - mibi showed anterior, septal, apical and inferior scarring c/w multivessel infarct, no ischemia HTN: controlled. -cont coreg, nitrate ESRD: -cont hd per renal CAD s/p stent, Elevated trops: -borderline trop elevation with flat trend and nl ck, similar to prior baseline values, not c/w acs - cont aspirin, statin
--- NOTE | 2019-11-11 10:36 | PN ---
Progress Note (short form) - Note Progress Note: Assuming patient's care from [facility]/patient seen in our office recently Chief Complaint: Events noted, notes reviewed, just completed his HD session, denies any chest pain, reports persists dyspnea but clinically improved History of Present Illness: Seen and examined on telemetry. Events noted, notes reviewed, just completed his HD session, denies any chest pain, reports persists dyspnea but clinically improved Result of MPI study noted, predominant infarct/scarring with no ischemia, severe LV systolic dysfunction Medications: Current Medications Acetaminophen (Tylenol -) 650 mg PO Q4H PRN PRN Reason: PAIN 1-3 Last Admin: 11/09/19 12:57 Dose: 650 mg Ascorbic Acid (Vitamin C -) 250 mg PO DAILY [facility] Last Admin: 11/11/19 11:23 Dose: 250 mg Aspirin (Asa -) 81 mg PO DAILY [facility] Last Admin: 11/11/19 11:12 Dose: 81 mg Atorvastatin Calcium (Lipitor -) 10 mg PO HS [facility] Last Admin: 11/10/19 21:54 Dose: 10 mg Carvedilol (Coreg -) 6.25 mg PO BID [facility] Last Admin: 11/11/19 11:12 Dose: 6.25 mg Collagenase (Santyl -) 1 applic TP DAILY [facility]; Protocol Donepezil HCl (Aricept -) 10 mg PO HS [facility] Last Admin: 11/10/19 21:54 Dose: 10 mg Famotidine (Pepcid -) 20 mg PO HS [facility] Last Admin: 11/10/19 21:55 Dose: 20 mg Piperacillin Sod/Tazobactam (Sod 2.25 gm/ Dextrose) 50 mls @ 100 mls/hr IVPB Q8H-IV [facility]; Protocol Last Admin: 11/11/19 11:23 Dose: 100 mls/hr Sodium Chloride (Normal Saline -) 250 mls @ 3,000 mls/hr IV PRN PRN PRN Reason: Hypotension during Dialysis Stop: 11/11/19 14:30 Insulin Aspart (Novolog Vial Sliding Scale -) 1 vial SQ [facility]; Protocol Last Admin: 11/11/19 06:45 Dose: Not Given Insulin Detemir (Levemir Vial) 10 units SQ [facility] Last Admin: 11/10/19 21:55 Dose: 10 units Isosorbide Dinitrate (Isordil -) 20 mg PO BIDISORDIL [facility] Last Admin: 11/11/19 11:22 Dose: 20 mg Levothyroxine Sodium (Synthroid -) 125 mcg PO DAILY@0700 [facility] Last Admin: 11/11/19 06:45 Dose: 125 mcg Multivit/Ca Carb/B Cmplx/FA/Prenat (Nephro-Domenico -) 1 tablet PO DAILY [facility] Last Admin: 11/11/19 11:12 Dose: 1 tablet Pregabalin (Lyrica -) 50 mg PO DAILY [facility] Last Admin: 11/11/19 11:12 Dose: 50 mg Zinc Sulfate (Orazinc -) 220 mg PO DAILY [facility] Last Admin: 11/11/19 11:21 Dose: 220 mg Review of Systems - Review of Systems Constitutional: denies: Chills, Fever Cardiovascular: As noted above Respiratory: denies: Cough or Sputum Production Gastrointestinal: denies: Nausea, Vomiting, Diarrhea, Constipation or Abdominal Pain Neurological: denies: Headaches Vital Signs: Last Vital Signs Temp Pulse Resp BP Pulse Ox 98.2 F 60 18 122/69 99 11/11/19 07:05 11/11/19 10:30 11/11/19 10:30 11/11/19 10:30 11/11/19 08:19 Intake & Output 11/08/19 11/09/19 11/10/19 11/11/19 23:59 23:59 23:59 23:59 Intake Total 800 840 550 550 Output Total 3100 158 408 8732 Balance -2300 540 450 -2950 Weight 169 lb 9 oz 171 lb 15.369 oz 176 lb 5.917 oz 178 lb 4.8 oz Neck: Supple Negative JVD No Bruit Respiratory: Diminished Breath Sounds Bilaterally Cardiovascular: S1 S2 Regular Rate and Rhythm Gastrointestinal: Soft Benign Normal Bowel Sounds Ext: Trace Edema Labs: CBC, BMP 11/11/19 08:31 11/11/19 08:31 INR, PTT INR 1.03 (0.83-1.09) 11/05/19 15:20 Hepatic Panel Total Bilirubin 0.6 mg/dL (0.2-1) 11/11/19 08:31 AST 25 U/L (15-37) 11/11/19 08:31 ALT 16 U/L (13-61) 11/11/19 08:31 Alkaline Phosphatase 229 U/L (45-117) H 11/11/19 08:31 Albumin 2.0 g/dl (3.4-5.0) L 11/11/19 08:31 Assessment/Plan ASSESSMENT: 1. Acute on chronic class II-III NYHA classification LV systolic heart failure/ dilated ischemic cardiomyopathy, clinically resolving 2. History of acute Hypercapneic/Hypoxic Respiratory Failure 3. CAD post PCI/stent angina pectoris 4. Post [employer]-D 5. HTN 6. DM 7. Hypercholesterolemia 8. Organic brain syndrome/dementia 9. Hypothyroidism 10. ESRD on HD 11. History of laparoscopic cholecystectomy 12. History of right foot cellulitis 13. Laparoscopic cholecystectomy PLAN: 1. HD per renal service 2. Continue Coreg and dose titration as needed and as tolerated, hemodynamics permitting 3. Recommend the addition of Entresto unless contraindicated 4. Continue Nitrates but initiate Imdur, instead 5. Continue ASA 6. Continue Lipitor 7. F/U in the office post D/C call [phone] Debbie Merida M.D.
[2019-11-11] MEDS: PREGABALIN 50 MG CAPSULE PO SCH (11:12)
[2019-11-11] MEDS: ASPIRIN 81 MG CHEWABLE TABLETS PO SCH (11:12)
[2019-11-11] MEDS: VITAMIN B COMP W-C 1 EA TABLET PO SCH (11:12)
[2019-11-11] MEDS: CARVEDILOL 6.25 MG TABLET (FP) PO SCH ×2 (11:12→21:48)
--- NOTE | 2019-11-11 11:15 | PN ---
Progress Note, Physician History of Present Illness: POD#5. Pt seen in bed. VSS - Current Medication List Current Medications: Active Medications Acetaminophen (Tylenol -) 650 mg PO Q4H PRN PRN Reason: PAIN 1-3 Last Admin: 11/09/19 12:57 Dose: 650 mg Ascorbic Acid (Vitamin C -) 250 mg PO DAILY [facility] Last Admin: 11/10/19 13:13 Dose: 250 mg Aspirin (Asa -) 81 mg PO DAILY [facility] Last Admin: 11/10/19 13:12 Dose: 81 mg Atorvastatin Calcium (Lipitor -) 10 mg PO HS [facility] Last Admin: 11/10/19 21:54 Dose: 10 mg Carvedilol (Coreg -) 6.25 mg PO BID [facility] Last Admin: 11/10/19 21:54 Dose: 6.25 mg Donepezil HCl (Aricept -) 10 mg PO HS [facility] Last Admin: 11/10/19 21:54 Dose: 10 mg Famotidine (Pepcid -) 20 mg PO [facility] Last Admin: 11/10/19 21:55 Dose: 20 mg Piperacillin Sod/Tazobactam (Sod 2.25 gm/ Dextrose) 50 mls @ 100 mls/hr IVPB Q8H-IV [facility]; Protocol Last Admin: 11/11/19 03:34 Dose: 100 mls/hr Sodium Chloride (Normal Saline -) 250 mls @ 3,000 mls/hr IV PRN PRN PRN Reason: Hypotension during Dialysis Stop: 11/11/19 14:30 Insulin Aspart (Novolog Vial Sliding Scale -) 1 vial SQ [facility]; Protocol Last Admin: 11/11/19 06:45 Dose: Not Given Insulin Detemir (Levemir Vial) 10 units SQ [facility] Last Admin: 11/10/19 21:55 Dose: 10 units Isosorbide Dinitrate (Isordil -) 20 mg PO BIDISORDIL [facility] Last Admin: 11/10/19 17:09 Dose: 20 mg Levothyroxine Sodium (Synthroid -) 125 mcg PO DAILY@0700 [facility] Last Admin: 11/11/19 06:45 Dose: 125 mcg Multivit/Ca Carb/B Cmplx/FA/Prenat (Nephro-Domenico -) 1 tablet PO DAILY [facility] Last Admin: 11/10/19 13:13 Dose: 1 tablet Pregabalin (Lyrica -) 50 mg PO DAILY [facility] Last Admin: 11/10/19 13:13 Dose: 50 mg Zinc Sulfate (Orazinc -) 220 mg PO DAILY [facility] Last Admin: 11/10/19 13:11 Dose: 220 mg - Objective Vital Signs: Vital Signs Temperature 98.2 F 11/11/19 07:05 Pulse Rate 60 11/11/19 10:30 Respiratory Rate 18 11/11/19 10:30 Blood Pressure 122/69 11/11/19 10:30 O2 Sat by Pulse Oximetry (%) 99 11/11/19 08:19 Extremities: Yes: Other (+packing in place right heel(pt unavailable to remove yesterday during rounds), -drainage, -mal odor, -cellulitis, -mal odor, + necrotic patches) Labs: CBC, BMP 11/11/19 08:31 11/11/19 08:31 INR, PTT INR 1.03 (0.83-1.09) 11/05/19 15:20 Assessment/Plan cellulitis right heel resolved eschar with wound Packing pulled. Santyl to right heel. Offload heel with heel pads and pillow under calf. Will follow.
[2019-11-11] MEDS: ZINC SULFATE 220 MG CAPSULE (FP) PO SCH (11:21)
[2019-11-11] MEDS: ISOSORBIDE DINITRATE 20 MG TABLET (FP) PO SCH ×2 (11:22→19:02)
[2019-11-11] MEDS: ASCORBIC ACID 250 MG TABLET (FP) PO SCH (11:23)
--- NOTE | 2019-11-11 16:48 | PN ---
Progress Note, Physician History of Present Illness: Pt seen and examine at bedside. He is awake and alert. He tolerated HD. - Current Medication List Current Medications: Active Medications Acetaminophen (Tylenol -) 650 mg PO Q4H PRN PRN Reason: PAIN 1-3 Last Admin: 11/09/19 12:57 Dose: 650 mg Ascorbic Acid (Vitamin C -) 250 mg PO DAILY [facility] Last Admin: 11/11/19 11:23 Dose: 250 mg Aspirin (Asa -) 81 mg PO DAILY [facility] Last Admin: 11/11/19 11:12 Dose: 81 mg Atorvastatin Calcium (Lipitor -) 10 mg PO HS [facility] Last Admin: 11/10/19 21:54 Dose: 10 mg Carvedilol (Coreg -) 6.25 mg PO BID [facility] Last Admin: 11/11/19 11:12 Dose: 6.25 mg Collagenase (Santyl -) 1 applic TP DAILY [facility]; Protocol Donepezil HCl (Aricept -) 10 mg PO [facility] Last Admin: 11/10/19 21:54 Dose: 10 mg Famotidine (Pepcid -) 20 mg PO [facility] Last Admin: 11/10/19 21:55 Dose: 20 mg Piperacillin Sod/Tazobactam (Sod 2.25 gm/ Dextrose) 50 mls @ 100 mls/hr IVPB Q8H-IV [facility]; Protocol Last Admin: 11/11/19 11:23 Dose: 100 mls/hr Insulin Aspart (Novolog Vial Sliding Scale -) 1 vial SQ [facility]; Protocol Last Admin: 11/11/19 06:45 Dose: Not Given Insulin Detemir (Levemir Vial) 10 units SQ [facility] Last Admin: 11/10/19 21:55 Dose: 10 units Isosorbide Dinitrate (Isordil -) 20 mg PO BIDISORDIL [facility] Last Admin: 11/11/19 11:22 Dose: 20 mg Levothyroxine Sodium (Synthroid -) 125 mcg PO DAILY@0700 [facility] Last Admin: 11/11/19 06:45 Dose: 125 mcg Multivit/Ca Carb/B Cmplx/FA/Prenat (Nephro-Domenico -) 1 tablet PO DAILY [facility] Last Admin: 11/11/19 11:12 Dose: 1 tablet Pregabalin (Lyrica -) 50 mg PO DAILY [facility] Last Admin: 11/11/19 11:12 Dose: 50 mg Zinc Sulfate (Orazinc -) 220 mg PO DAILY [facility] Last Admin: 11/11/19 11:21 Dose: 220 mg - Objective Vital Signs: Vital Signs Temperature 98.2 F 11/11/19 07:05 Pulse Rate 60 11/11/19 10:30 Respiratory Rate 18 11/11/19 10:30 Blood Pressure 122/69 11/11/19 10:30 O2 Sat by Pulse Oximetry (%) 99 11/11/19 08:19 Constitutional: Yes: Calm Eyes: Yes: Conjunctiva Clear Cardiovascular: Yes: S1, S2 Respiratory: Yes: On Nasal O2 Gastrointestinal: Yes: Soft Genitourinary: Yes: WNL Musculoskeletal: Yes: WNL Edema: No Integumentary: Yes: Venous Stasis Changes Neurological: Yes: Oriented Psychiatric: Yes: Oriented Labs: CBC, BMP 11/11/19 08:31 11/11/19 08:31 INR, PTT INR 1.03 (0.83-1.09) 11/05/19 15:20 Problem List - Problems (1) Acute decompensated heart failure Code(s): I50.9 - HEART FAILURE, UNSPECIFIED (2) Pleural effusion Code(s): J90 - PLEURAL EFFUSION, NOT ELSEWHERE CLASSIFIED (3) ESRD (end stage renal disease) Code(s): N18.6 - END STAGE RENAL DISEASE Assessment/Plan Current Medications Generic Name Dose Route Start Last Admin Trade Name Freq PRN Reason Stop Dose Admin Acetaminophen 650 mg 11/07/19 07:49 11/09/19 12:57 Tylenol - PO 650 mg Q4H PRN Administration PAIN 1-3 Ascorbic Acid 250 mg 11/09/19 10:00 11/11/19 11:23 Vitamin C - PO 250 mg DAILY [facility] Administration Aspirin 81 mg 11/09/19 10:00 11/11/19 11:12 Asa - PO 81 mg DAILY [facility] Administration Atorvastatin Calcium 10 mg 11/07/19 22:00 11/10/19 21:54 Lipitor - PO 10 mg HS [facility] Administration Carvedilol 6.25 mg 11/07/19 10:00 11/11/19 11:12 Coreg - PO 6.25 mg BID [facility] Administration Collagenase 1 applic 11/11/19 11:30 Santyl - TP DAILY [facility] Protocol Donepezil HCl 10 mg 11/07/19 22:00 11/10/19 21:54 Aricept - PO 10 mg HS [facility] Administration Famotidine 20 mg 11/07/19 22:00 11/10/19 21:55 Pepcid - PO 20 mg HS [facility] Administration Piperacillin Sod/Tazobactam 50 mls @ 100 mls/hr 11/08/19 10:00 11/11/19 11:23 Sod 2.25 gm/ Dextrose IVPB 100 mls/hr Q8H-IV [facility] Administration Protocol Insulin Aspart 1 vial 11/07/19 11:00 11/11/19 06:45 Novolog Vial Sliding Scale - SQ Not Given ACHS [facility] Protocol Insulin Detemir 10 units 11/07/19 22:00 11/10/19 21:55 Levemir Vial SQ 10 units HS [facility] Administration Isosorbide Dinitrate 20 mg 11/07/19 10:00 11/11/19 11:22 Isordil - PO 20 mg BIDISORDIL [facility] Administration Levothyroxine Sodium 125 mcg 11/08/19 07:00 11/11/19 06:45 Synthroid - PO 125 mcg DAILY@0700 [facility] Administration Multivit/Ca Carb/B Cmplx/FA/Prenat 1 tablet 11/09/19 10:00 11/11/19 11:12 Nephro-Domenico - PO 1 tablet DAILY [facility] Administration Pregabalin 50 mg 11/07/19 10:00 11/11/19 11:12 Lyrica - PO 50 mg DAILY [facility] Administration Zinc Sulfate 220 mg 11/09/19 10:00 11/11/19 11:21 Orazinc - PO 220 mg DAILY [facility] Administration Impression 1. ESRD 2. HTN 3. fluid overload 4. DM 5. hypothyroidism 6. pleural effusion 7. hyperkalemia 8. CHF Plan - HD today - cont renal diet - fluid restriction - cont wound care - volume status greatly improved
[2019-11-11] MEDS: COLLAGENASE CLOSTRIDIUM HIST. 30 GRAMS TUBE TP SCH (18:08)
[2019-11-11] MEDS: ATORVASTATIN CA 10 MG TABLET (FP) PO SCH (21:48)
[2019-11-11] MEDS: INSULIN (LEVEMIR) 100 UNITS/ML UNITS SQ SCH (21:48)
[2019-11-11] MEDS: DONEPEZIL HCL 10 MG TABLET (FP) PO SCH (21:48)
[2019-11-11] MEDS: FAMOTIDINE 20 MG TABLET PO SCH (21:50)
[2019-11-12] MEDS: PIPERACILLIN/TAZOB 2.25 GM 2.25 GM in DEXTROSE 5%-WATER - 50 ML IVPB SCH ×3 (02:42→17:32)
[2019-11-12] MEDS: INSULIN SLIDING SCALE (NOVOLOG) 1 VIAL SQ SCH ×4 (06:39→22:16)
[2019-11-12] MEDS: LEVOTHYROXINE NA 125 MCG TABLET (FP) PO SCH (06:40)
--- NOTE | 2019-11-12 09:52 | PN ---
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 MRSA, PSEUDOMONAS - Current Medication List Current Medications: Active Medications Acetaminophen (Tylenol -) 650 mg PO Q4H PRN PRN Reason: PAIN 1-3 Last Admin: 11/09/19 12:57 Dose: 650 mg Ascorbic Acid (Vitamin C -) 250 mg PO DAILY [facility] Last Admin: 11/11/19 11:23 Dose: 250 mg Aspirin (Asa -) 81 mg PO DAILY [facility] Last Admin: 11/11/19 11:12 Dose: 81 mg Atorvastatin Calcium (Lipitor -) 10 mg PO HS [facility] Last Admin: 11/11/19 21:48 Dose: 10 mg Carvedilol (Coreg -) 6.25 mg PO BID [facility] Last Admin: 11/11/19 21:48 Dose: 6.25 mg Collagenase (Santyl -) 1 applic TP DAILY [facility]; Protocol Last Admin: 11/11/19 18:08 Dose: 1 applic Donepezil HCl (Aricept -) 10 mg PO [facility] Last Admin: 11/11/19 21:48 Dose: 10 mg Famotidine (Pepcid -) 20 mg PO [facility] Last Admin: 11/11/19 21:50 Dose: 20 mg Piperacillin Sod/Tazobactam (Sod 2.25 gm/ Dextrose) 50 mls @ 100 mls/hr IVPB Q8H-IV [facility]; Protocol Last Admin: 11/12/19 02:42 Dose: 100 mls/hr Insulin Aspart (Novolog Vial Sliding Scale -) 1 vial SQ [facility]; Protocol Last Admin: 11/12/19 06:39 Dose: 4 units Insulin Detemir (Levemir Vial) 10 units SQ [facility] Last Admin: 11/11/19 21:48 Dose: 10 units Isosorbide Dinitrate (Isordil -) 20 mg PO BIDISORDIL [facility] Last Admin: 11/11/19 19:02 Dose: 20 mg Levothyroxine Sodium (Synthroid -) 125 mcg PO DAILY@0700 [facility] Last Admin: 11/12/19 06:40 Dose: 125 mcg Multivit/Ca Carb/B Cmplx/FA/Prenat (Nephro-Domenico -) 1 tablet PO DAILY [facility] Last Admin: 11/11/19 11:12 Dose: 1 tablet Pregabalin (Lyrica -) 50 mg PO DAILY [facility] Last Admin: 11/11/19 11:12 Dose: 50 mg Zinc Sulfate (Orazinc -) 220 mg PO DAILY [facility] Last Admin: 11/11/19 11:21 Dose: 220 mg - Objective Vital Signs: Vital Signs Temperature 98.4 F 11/12/19 06:00 Pulse Rate 65 11/12/19 06:00 Respiratory Rate 20 11/12/19 06:00 Blood Pressure 111/60 11/12/19 06:00 O2 Sat by Pulse Oximetry (%) 97 11/11/19 21:00 Constitutional: Yes: No Distress Eyes: Yes: Conjunctiva Clear Cardiovascular: Yes: Regular Rate and Rhythm, S1, S2 Respiratory: Yes: CTA Bilaterally Gastrointestinal: Yes: Normal Bowel Sounds, Soft. No: Tenderness Extremities: Yes: Other (+ dry eschar, heel erythema resolved) Labs: CBC, BMP 11/11/19 08:31 11/11/19 08:31 INR, PTT INR 1.03 (0.83-1.09) 11/05/19 15:20 Assessment/Plan NECROTIC HEEL ULCER S/P DEBRIDEMENT HEEL CELLULITIS ESRD CONTINUE ZOSYN REDOSE VANCOMYCIN
[2019-11-12] MEDS ORDERED: VANCOMYCIN 1 GRAM (PRE-DOCKED) 1,000 MG/250 ML BAG IVPB ONE (09:56)
[2019-11-12] MEDS ORDERED: PT OWN MED DRAWER 7, Y5N ONE (10:04)
[2019-11-12] MEDS ORDERED: PIPERACILLIN/TAZOBACTAM 2.25 GM VIAL IVPB ONE ×3 (10:04→17:19)
[2019-11-12] MEDS ORDERED: DEXTROSE 5%-WATER - 50 ML IVPB ONE ×3 (10:05→17:19)
[2019-11-12] MEDS: ZINC SULFATE 220 MG CAPSULE (FP) PO SCH (10:29)
[2019-11-12] MEDS: ISOSORBIDE DINITRATE 20 MG TABLET (FP) PO SCH (10:29)
[2019-11-12] MEDS: CARVEDILOL 6.25 MG TABLET (FP) PO SCH ×2 (10:29→22:15)
[2019-11-12] MEDS: ASPIRIN 81 MG CHEWABLE TABLETS PO SCH (10:29)
[2019-11-12] MEDS: ASCORBIC ACID 250 MG TABLET (FP) PO SCH (10:29)
[2019-11-12] MEDS: VITAMIN B COMP W-C 1 EA TABLET PO SCH (10:29)
[2019-11-12] MEDS: PREGABALIN 50 MG CAPSULE PO SCH (10:29)
[2019-11-12] MEDS ORDERED: ACETAMINOPHEN WITH CODEINE 300MG/30MG TABLET PO PRN (11:10)
--- NOTE | 2019-11-12 11:10 | PN ---
Progress Note, Physician Chief Complaint: AWAKE ALERT EVENTS AND NOTES REVIEWED PATIENT DENIES FEVER OR CHILLS DOES C/O RIGHT HEEL PAIN - Current Medication List Current Medications: Active Medications Acetaminophen (Tylenol -) 650 mg PO Q4H PRN PRN Reason: PAIN 1-3 Last Admin: 11/09/19 12:57 Dose: 650 mg Ascorbic Acid (Vitamin C -) 250 mg PO DAILY [facility] Last Admin: 11/12/19 10:29 Dose: 250 mg Aspirin (Asa -) 81 mg PO DAILY [facility] Last Admin: 11/12/19 10:29 Dose: 81 mg Atorvastatin Calcium (Lipitor -) 10 mg PO HS [facility] Last Admin: 11/11/19 21:48 Dose: 10 mg Carvedilol (Coreg -) 6.25 mg PO BID [facility] Last Admin: 11/12/19 10:29 Dose: 6.25 mg Collagenase (Santyl -) 1 applic TP DAILY [facility]; Protocol Last Admin: 11/11/19 18:08 Dose: 1 applic Donepezil HCl (Aricept -) 10 mg PO [facility] Last Admin: 11/11/19 21:48 Dose: 10 mg Famotidine (Pepcid -) 20 mg PO HS [facility] Last Admin: 11/11/19 21:50 Dose: 20 mg Piperacillin Sod/Tazobactam (Sod 2.25 gm/ Dextrose) 50 mls @ 100 mls/hr IVPB Q8H-IV [facility]; Protocol Last Admin: 11/12/19 10:37 Dose: 100 mls/hr Vancomycin HCl (Vancomycin (Pre-Docked)) 1,000 mg in 250 mls @ 166.667 mls/hr IVPB ONCE ONE; Protocol Stop: 11/12/19 11:25 Last Admin: 11/12/19 10:26 Dose: 166.667 mls/hr Insulin Aspart (Novolog Vial Sliding Scale -) 1 vial SQ [facility]; Protocol Last Admin: 11/12/19 06:39 Dose: 4 units Insulin Detemir (Levemir Vial) 10 units SQ [facility] Last Admin: 11/11/19 21:48 Dose: 10 units Isosorbide Dinitrate (Isordil -) 20 mg PO BIDISORDIL [facility] Last Admin: 11/12/19 10:29 Dose: 20 mg Levothyroxine Sodium (Synthroid -) 125 mcg PO DAILY@0700 [facility] Last Admin: 11/12/19 06:40 Dose: 125 mcg Multivit/Ca Carb/B Cmplx/FA/Prenat (Nephro-Domenico -) 1 tablet PO DAILY [facility] Last Admin: 11/12/19 10:29 Dose: 1 tablet Pregabalin (Lyrica -) 50 mg PO DAILY [facility] Last Admin: 11/12/19 10:29 Dose: 50 mg Zinc Sulfate (Orazinc -) 220 mg PO DAILY [facility] Last Admin: 11/12/19 10:29 Dose: 220 mg - Objective Vital Signs: Vital Signs Temperature 98.4 F 11/12/19 06:00 Pulse Rate 71 11/12/19 10:00 Respiratory Rate 18 11/12/19 10:00 Blood Pressure 123/69 11/12/19 10:00 O2 Sat by Pulse Oximetry (%) 97 11/11/19 21:00 Constitutional: Yes: Mild Distress Cardiovascular: Yes: Regular Rate and Rhythm Respiratory: Yes: WNL Gastrointestinal: Yes: Soft Genitourinary: Yes: Other Extremities: Yes: Deformity Wound/Incision: Yes: Dressing Removed (HEEL WOUND ON RIGHT SIDE DRESSING REMOVED MINIMAL BLOODY DISCHARGE) Neurological: Yes: Pre-Existing Deficit ...Motor Strength: RLE Labs: CBC, BMP 11/11/19 08:31 11/11/19 08:31 INR, PTT INR 1.03 (0.83-1.09) 11/05/19 15:20 Problem List - Problems (1) Elevated troponin Code(s): R79.89 - OTHER SPECIFIED ABNORMAL FINDINGS OF BLOOD CHEMISTRY (2) Hyperkalemia Code(s): E87.5 - HYPERKALEMIA (3) Acute decompensated heart failure Code(s): I50.9 - HEART FAILURE, UNSPECIFIED (4) COPD (chronic obstructive pulmonary disease) Code(s): J44.9 - CHRONIC OBSTRUCTIVE PULMONARY DISEASE, UNSPECIFIED (5) Heel ulcer Code(s): L97.409 - NON-PRS CHRONIC ULCER OF UNSP HEEL AND MIDFOOT W UNSP SEVERT Qualifiers: Laterality: right (6) Pleural effusion Code(s): J90 - PLEURAL EFFUSION, NOT ELSEWHERE CLASSIFIED (7) Right foot pain Code(s): M79.671 - PAIN IN RIGHT FOOT (8) Biventricular ICD (implantable cardioverter-defibrillator) in place Code(s): Z95.810 - PRESENCE OF AUTOMATIC (IMPLANTABLE) CARDIAC DEFIBRILLATOR (9) Cardiomyopathy Code(s): I42.9 - CARDIOMYOPATHY, UNSPECIFIED Qualifiers: (10) Diabetes Code(s): E11.9 - TYPE 2 DIABETES MELLITUS WITHOUT COMPLICATIONS Qualifiers: Diabetes mellitus type: type 2 Chronic kidney disease stage: on chronic dialysis (11) ESRD (end stage renal disease) Code(s): N18.6 - END STAGE RENAL DISEASE (12) Hypothyroid Code(s): E03.9 - HYPOTHYROIDISM, UNSPECIFIED Qualifiers: Hypothyroidism type: unspecified Qualified Code(s): E03.9 - Hypothyroidism , unspecified (13) 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
--- NOTE | 2019-11-12 11:40 | PN ---
Progress Note, Physician History of Present Illness: Pt seen and examined at bedside. He is awake and alert. He denies shortness of breath. - Current Medication List Current Medications: Active Medications Acetaminophen (Tylenol -) 650 mg PO Q4H PRN PRN Reason: PAIN 1-3 Last Admin: 11/09/19 12:57 Dose: 650 mg Acetaminophen/Codeine Phosphate (Tylenol # 3 -) 1 tab PO Q6H PRN PRN Reason: PAIN LEVEL 7 - 10 Ascorbic Acid (Vitamin C -) 250 mg PO DAILY [facility] Last Admin: 11/12/19 10:29 Dose: 250 mg Aspirin (Asa -) 81 mg PO DAILY [facility] Last Admin: 11/12/19 10:29 Dose: 81 mg Atorvastatin Calcium (Lipitor -) [address] [facility] Last Admin: 11/11/19 21:48 Dose: 10 mg Carvedilol (Coreg -) 6.25 mg PO BID [facility] Last Admin: 11/12/19 10:29 Dose: 6.25 mg Collagenase (Santyl -) 1 applic TP DAILY [facility]; Protocol Last Admin: 11/11/19 18:08 Dose: 1 applic Donepezil HCl (Aricept -) [address] [facility] Last Admin: 11/11/19 21:48 Dose: 10 mg Famotidine (Pepcid -) [address] [facility] Last Admin: 11/11/19 21:50 Dose: 20 mg Piperacillin Sod/Tazobactam (Sod 2.25 gm/ Dextrose) 50 mls @ 100 mls/hr IVPB Q8H-IV [facility]; Protocol Last Admin: 11/12/19 10:37 Dose: 100 mls/hr Insulin Aspart (Novolog Vial Sliding Scale -) 1 vial SQ [facility]; Protocol Last Admin: 11/12/19 06:39 Dose: 4 units Insulin Detemir (Levemir Vial) [address] [facility] Last Admin: 11/11/19 21:48 Dose: 10 units Isosorbide Dinitrate (Isordil -) 20 mg PO BIDISORDIL [facility] Last Admin: 11/12/19 10:29 Dose: 20 mg Levothyroxine Sodium (Synthroid -) 125 mcg PO DAILY@0700 [facility] Last Admin: 11/12/19 06:40 Dose: 125 mcg Multivit/Ca Carb/B Cmplx/FA/Prenat (Nephro-Domenico -) 1 tablet PO DAILY [facility] Last Admin: 11/12/19 10:29 Dose: 1 tablet Pregabalin (Lyrica -) 50 mg PO DAILY [facility] Last Admin: 11/12/19 10:29 Dose: 50 mg Zinc Sulfate (Orazinc -) 220 mg PO DAILY [facility] Last Admin: 11/12/19 10:29 Dose: 220 mg - Objective Vital Signs: Vital Signs Temperature 98.4 F 11/12/19 06:00 Pulse Rate 71 11/12/19 10:00 Respiratory Rate 18 11/12/19 10:00 Blood Pressure 123/69 11/12/19 10:00 O2 Sat by Pulse Oximetry (%) 97 11/11/19 21:00 Constitutional: Yes: Calm Eyes: Yes: Conjunctiva Clear HENT: Yes: Atraumatic Neck: Yes: Supple Cardiovascular: Yes: S1, S2 Respiratory: Yes: CTA Bilaterally Gastrointestinal: Yes: Soft Genitourinary: Yes: WNL Musculoskeletal: Yes: WNL Edema: No Integumentary: Yes: WNL Wound/Incision: Yes: Dressing Dry and Intact Neurological: Yes: Oriented Labs: CBC, BMP 11/11/19 08:31 11/11/19 08:31 INR, PTT INR 1.03 (0.83-1.09) 11/05/19 15:20 Problem List - Problems (1) Acute decompensated heart failure Code(s): I50.9 - HEART FAILURE, UNSPECIFIED (2) Pleural effusion Code(s): J90 - PLEURAL EFFUSION, NOT ELSEWHERE CLASSIFIED (3) ESRD (end stage renal disease) Code(s): N18.6 - END STAGE RENAL DISEASE Assessment/Plan Current Medications Generic Name Dose Route Start Last Admin Trade Name Freq PRN Reason Stop Dose Admin Acetaminophen 650 mg 11/07/19 07:49 11/09/19 12:57 Tylenol - PO 650 mg Q4H PRN Administration PAIN 1-3 Acetaminophen/Codeine Phosphate 1 tab 11/12/19 11:10 Tylenol # 3 - PO Q6H PRN PAIN LEVEL 7 - 10 Ascorbic Acid 250 mg 11/09/19 10:00 11/12/19 10:29 Vitamin C - PO 250 mg DAILY [facility] Administration Aspirin 81 mg 11/09/19 10:00 11/12/19 10:29 Asa - PO 81 mg DAILY [facility] Administration Atorvastatin Calcium 10 mg 11/07/19 22:00 11/11/19 21:48 Lipitor - PO 10 mg HS [facility] Administration Carvedilol 6.25 mg 11/07/19 10:00 11/12/19 10:29 Coreg - PO 6.25 mg BID [facility] Administration Collagenase 1 applic 11/11/19 11:30 11/11/19 18:08 Santyl - TP 1 applic DAILY [facility] Administration Protocol Donepezil HCl 10 mg 11/07/19 22:00 11/11/19 21:48 Aricept - PO 10 mg HS [facility] Administration Famotidine 20 mg 11/07/19 22:00 11/11/19 21:50 Pepcid - PO 20 mg HS [facility] Administration Piperacillin Sod/Tazobactam 50 mls @ 100 mls/hr 11/08/19 10:00 11/12/19 10:37 Sod 2.25 gm/ Dextrose IVPB 100 mls/hr Q8H-IV [facility] Administration Protocol Insulin Aspart 1 vial 11/07/19 11:00 11/12/19 06:39 Novolog Vial Sliding Scale - SQ 4 units ACHS [facility] Administration Protocol Insulin Detemir 10 units 11/07/19 22:00 11/11/19 21:48 Levemir Vial SQ 10 units HS [facility] Administration Isosorbide Dinitrate 20 mg 11/07/19 10:00 11/12/19 10:29 Isordil - PO 20 mg BIDISORDIL [facility] Administration Levothyroxine Sodium 125 mcg 11/08/19 07:00 11/12/19 06:40 Synthroid - PO 125 mcg DAILY@0700 [facility] Administration Multivit/Ca Carb/B Cmplx/FA/Prenat 1 tablet 11/09/19 10:00 11/12/19 10:29 Nephro-Domenico - PO 1 tablet DAILY [facility] Administration Pregabalin 50 mg 11/07/19 10:00 11/12/19 10:29 Lyrica - PO 50 mg DAILY [facility] Administration Zinc Sulfate 220 mg 11/09/19 10:00 11/12/19 10:29 Orazinc - PO 220 mg DAILY [facility] Administration Impression 1. ESRD 2. HTN 3. fluid overload 4. DM 5. hypothyroidism 6. pleural effusion 7. hyperkalemia 8. CHF Plan - HD tomorrow - cont wound care - cont renal diet - volume status greatly improved
[2019-11-12] MEDS ORDERED: SODIUM CHLORIDE 250 ML IV PRN (11:41)
--- NOTE | 2019-11-12 12:35 | PN ---
Progress Note, Physician History of Present Illness: Denies chest pain or dyspnea. - Current Medication List Current Medications: Active Medications Acetaminophen (Tylenol -) 650 mg PO Q4H PRN PRN Reason: PAIN 1-3 Last Admin: 11/09/19 12:57 Dose: 650 mg Acetaminophen/Codeine Phosphate (Tylenol # 3 -) 1 tab PO Q6H PRN PRN Reason: PAIN LEVEL 7 - 10 Ascorbic Acid (Vitamin C -) 250 mg PO DAILY [facility] Last Admin: 11/12/19 10:29 Dose: 250 mg Aspirin (Asa -) 81 mg PO DAILY [facility] Last Admin: 11/12/19 10:29 Dose: 81 mg Atorvastatin Calcium (Lipitor -) 10 mg PO HS [facility] Last Admin: 11/11/19 21:48 Dose: 10 mg Carvedilol (Coreg -) 6.25 mg PO BID [facility] Last Admin: 11/12/19 10:29 Dose: 6.25 mg Collagenase (Santyl -) 1 applic TP DAILY [facility]; Protocol Last Admin: 11/11/19 18:08 Dose: 1 applic Donepezil HCl (Aricept -) 10 mg PO [facility] Last Admin: 11/11/19 21:48 Dose: 10 mg Epoetin Yuan (Procrit -) 3,000 unit IVPUSH ONCE ONE Stop: 11/13/19 11:42 Famotidine (Pepcid -) 20 mg PO [facility] Last Admin: 11/11/19 21:50 Dose: 20 mg Piperacillin Sod/Tazobactam (Sod 2.25 gm/ Dextrose) 50 mls @ 100 mls/hr IVPB Q8H-IV [facility]; Protocol Last Admin: 11/12/19 10:37 Dose: 100 mls/hr Sodium Chloride (Normal Saline -) 250 mls @ 3,000 mls/hr IV PRN PRN PRN Reason: Hypotension during Dialysis Stop: 11/13/19 11:41 Insulin Aspart (Novolog Vial Sliding Scale -) 1 vial SQ [facility]; Protocol Last Admin: 11/12/19 12:25 Dose: 4 units Insulin Detemir (Levemir Vial) 10 units SQ [facility] Last Admin: 11/11/19 21:48 Dose: 10 units Isosorbide Dinitrate (Isordil -) 20 mg PO BIDISORDIL [facility] Last Admin: 11/12/19 10:29 Dose: 20 mg Levothyroxine Sodium (Synthroid -) 125 mcg PO DAILY@0700 [facility] Last Admin: 11/12/19 06:40 Dose: 125 mcg Multivit/Ca Carb/B Cmplx/FA/Prenat (Nephro-Domenico -) 1 tablet PO DAILY [facility] Last Admin: 11/12/19 10:29 Dose: 1 tablet Pregabalin (Lyrica -) 50 mg PO DAILY [facility] Last Admin: 11/12/19 10:29 Dose: 50 mg Zinc Sulfate (Orazinc -) 220 mg PO DAILY [facility] Last Admin: 11/12/19 10: Dose: 220 mg - Objective Vital Signs: Vital Signs Temperature 98.4 F 11/12/19 06:00 Pulse Rate 71 11/12/19 10:00 Respiratory Rate 18 11/12/19 10:00 Blood Pressure 123/69 11/12/19 10:00 O2 Sat by Pulse Oximetry (%) 97 11/11/19 21:00 Constitutional: Yes: No Distress, Calm Neck: Yes: Supple Cardiovascular: Yes: Regular Rate and Rhythm Respiratory: Yes: Regular, Diminished, On Nasal O2 Gastrointestinal: Yes: Normal Bowel Sounds, Soft Edema: No Wound/Incision: Yes: Dressing Dry and Intact Labs: CBC, BMP 11/11/19 08:31 11/11/19 08:31 INR, PTT INR 1.03 (0.83-1.09) 11/05/19 15:20 - ....Imaging EKG: Report Reviewed (Tele: V-paced) Problem List - Problems (1) 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 Qualifiers: Laterality: right Qualified Code(s): L97.413 - Non-pressure chronic ulcer of right heel and midfoot with necrosis of muscle (2) Hyperkalemia Code(s): E87.5 - HYPERKALEMIA (3) Acute decompensated heart failure Code(s): I50.9 - HEART FAILURE, UNSPECIFIED (4) COPD (chronic obstructive pulmonary disease) Code(s): J44.9 - CHRONIC OBSTRUCTIVE PULMONARY DISEASE, UNSPECIFIED Qualifiers: COPD type: unspecified COPD Qualified Code(s): J44.9 - Chronic obstructive pulmonary disease, unspecified (5) Pleural effusion Code(s): J90 - PLEURAL EFFUSION, NOT ELSEWHERE CLASSIFIED (6) Biventricular ICD (implantable cardioverter-defibrillator) in place Code(s): Z95.810 - PRESENCE OF AUTOMATIC (IMPLANTABLE) CARDIAC DEFIBRILLATOR (7) Cardiomyopathy Code(s): I42.9 - CARDIOMYOPATHY, UNSPECIFIED Qualifiers: Cardiomyopathy type: ischemic Qualified Code(s): I25.5 - Ischemic cardiomyopathy (8) Diabetes Code(s): E11.9 - TYPE 2 DIABETES MELLITUS WITHOUT COMPLICATIONS Qualifiers: Diabetes mellitus type: type 2 Chronic kidney disease stage: on chronic dialysis (9) ESRD (end stage renal disease) Code(s): N18.6 - END STAGE RENAL DISEASE (10) HTN (hypertension) Code(s): I10 - ESSENTIAL (PRIMARY) HYPERTENSION Qualifiers: (11) Hypothyroid Code(s): E03.9 - HYPOTHYROIDISM, UNSPECIFIED Qualifiers: Hypothyroidism type: unspecified Qualified Code(s): E03.9 - Hypothyroidism , unspecified Assessment/Plan 11/10/2019 MPI study noted, predominant infarct/scarring with no ischemia, severe LV systolic dysfunction 09/19/2019 [employer] HEALTH DIETITIAN-D interrogated, 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 08/2019 10 beat run of NSVT self- terminated w/o therapy. 09/12/2019 Moderate dilated with severely decreased LVEF 20-25%, preserved wall motion at base, rest of segments severely HK, mod-severe MR, mild TR, pacemaker RV, mild-mod AR, mild ao dilatation 4.1 cm 1. Acute on chronic class II-III NYHA classification LV systolic heart failure/ dilated ischemic cardiomyopathy, clinically resolving 2. History of acute Hypercapneic/Hypoxic Respiratory Failure 3. CAD post PCI/stent angina pectoris 4. Post PUBLIC HEALTH DIETITIAN-D 5. HTN 6. DM 7. Hypercholesterolemia 8. Organic brain syndrome/dementia 9. Hypothyroidism 10. ESRD on HD 11. History of laparoscopic cholecystectomy 12. Right heel cellulitis/ulcer post debridement 13. Laparoscopic cholecystectomy PLAN: 1. HD per renal service 2. Continue Coreg 6.25 bid and dose titration as tolerated, hemodynamics permitting 3. Recommend the addition of Entresto once hyperkalemia resolves 4. Continue ISMO 20 bid, resume hydralazine 25 bid 5. Continue ASA 81 qd 6. Continue Lipitor 10 qhs 7. F/U in the office post D/C call [phone] 8. Complete Vanco/Zosyn course per ID, wound care 9. DVT and GI prophylaxis, d/w daughter she will bring over his cardiac reports [place] for review
[2019-11-12] MEDS: COLLAGENASE CLOSTRIDIUM HIST. 30 GRAMS TUBE TP SCH (15:42)
[2019-11-12] MEDS: ISOSORBIDE MONONITRATE 20 MG TABLET PO SCH (22:00)
[2019-11-12] MEDS: ATORVASTATIN CA 10 MG TABLET (FP) PO SCH (22:14)
[2019-11-12] MEDS: DONEPEZIL HCL 10 MG TABLET (FP) PO SCH (22:14)
[2019-11-12] MEDS: hydrALAZINE HCL 25 MG TABLET (FP) PO SCH (22:15)
[2019-11-12] MEDS: FAMOTIDINE 20 MG TABLET PO SCH (22:15)
[2019-11-12] MEDS: INSULIN (LEVEMIR) 100 UNITS/ML UNITS SQ SCH (22:15)
[2019-11-13] MEDS ORDERED: DEXTROSE 5%-WATER - 50 ML IVPB ONE ×2 (00:54→09:58)
[2019-11-13] MEDS ORDERED: PIPERACILLIN/TAZOBACTAM 2.25 GM VIAL IVPB ONE ×2 (00:54→09:58)
[2019-11-13] MEDS: PIPERACILLIN/TAZOB 2.25 GM 2.25 GM in DEXTROSE 5%-WATER - 50 ML IVPB SCH ×3 (01:30→18:03)
[2019-11-13] MEDS: INSULIN SLIDING SCALE (NOVOLOG) 1 VIAL SQ SCH ×3 (06:29→18:32)
[2019-11-13] MEDS: LEVOTHYROXINE NA 125 MCG TABLET (FP) PO SCH (06:30)
[2019-11-13 09:39] LABS: HEMOGLOBIN 10.9 GM/dL (11.7-16.9); MCH 30.6 pg (25.7-33.7); MCHC 32.2 g/dl (32.0-35.9); MEAN CELL VOLUME 95.1 fl (80-96); PLATELET COUNT 133 K/MM3 (134-434); RBC 3.57 M/mm3 (4.00-5.60); RDW 17.4 % (11.9-15.9); WHITE BLOOD COUNT 5.8 K/mm3 (4.0-10.0)
[2019-11-13 09:48] LABS: BLOOD UREA NITROGEN 56.4 mg/dL (7-18); CALCIUM 7.8 mg/dL (8.5-10.1); CREATININE 5.3 mg/dL (0.55-1.3); POTASSIUM 5.1 mmol/L (3.5-5.1)
[2019-11-13] MEDS ORDERED: PT OWN MED DRAWER 7, Y5N ONE ×2 (09:58→18:58)
[2019-11-13] MEDS: ISOSORBIDE MONONITRATE 20 MG TABLET PO SCH ×2 (10:00→17:58)
[2019-11-13] MEDS: CARVEDILOL 6.25 MG TABLET (FP) PO SCH (10:00)
[2019-11-13] MEDS: hydrALAZINE HCL 25 MG TABLET (FP) PO SCH (10:00)
--- NOTE | 2019-11-13 10:00 | PN ---
Progress Note, Physician History of Present Illness: Denies chest pain or dyspnea. - Current Medication List Current Medications: Active Medications Acetaminophen (Tylenol -) 650 mg PO Q4H PRN PRN Reason: PAIN 1-3 Last Admin: 11/09/19 12:57 Dose: 650 mg Acetaminophen/Codeine Phosphate (Tylenol # 3 -) 1 tab PO Q6H PRN PRN Reason: PAIN LEVEL 7 - 10 Ascorbic Acid (Vitamin C -) 250 mg PO DAILY [facility] Last Admin: 11/12/19 10:29 Dose: 250 mg Aspirin (Asa -) 81 mg PO DAILY [facility] Last Admin: 11/12/19 10:29 Dose: 81 mg Atorvastatin Calcium (Lipitor -) 10 mg PO [facility] Last Admin: 11/12/19 22:14 Dose: 10 mg Carvedilol (Coreg -) 6.25 mg PO BID [facility] Last Admin: 11/12/19 22:15 Dose: 6.25 mg Collagenase (Santyl -) 1 applic TP DAILY [facility]; Protocol Last Admin: 11/12/19 15:42 Dose: 1 applic Donepezil HCl (Aricept -) 10 mg PO [facility] Last Admin: 11/12/19 22:14 Dose: 10 mg Epoetin Yuan (Procrit -) 3,000 unit IVPUSH ONCE ONE Stop: 11/13/19 11:42 Famotidine (Pepcid -) 20 mg PO [facility] Last Admin: 11/12/19 22:15 Dose: 20 mg Hydralazine HCl (Apresoline -) 25 mg PO BID [facility] Last Admin: 11/12/19 22:15 Dose: 25 mg Piperacillin Sod/Tazobactam (Sod 2.25 gm/ Dextrose) 50 mls @ 100 mls/hr IVPB Q8H-IV [facility]; Protocol Last Admin: 11/13/19 01:30 Dose: 100 mls/hr Sodium Chloride (Normal Saline -) 250 mls @ 3,000 mls/hr IV PRN PRN PRN Reason: Hypotension during Dialysis Stop: 11/13/19 11:41 Insulin Aspart (Novolog Vial Sliding Scale -) 1 vial SQ [facility]; Protocol Last Admin: 11/13/19 06:29 Dose: Not Given Insulin Detemir (Levemir Vial) 10 units SQ [facility] Last Admin: 11/12/19 22:15 Dose: 10 units Isosorbide Mononitrate (Ismo -) 20 mg PO BIDISMO [facility] Last Admin: 11/12/19 22:00 Dose: 20 mg Levothyroxine Sodium (Synthroid -) 125 mcg PO DAILY@0700 [facility] Last Admin: 11/13/19 06:30 Dose: 125 mcg Multivit/Ca Carb/B Cmplx/FA/Prenat (Nephro-Domenico -) 1 tablet PO DAILY [facility] Last Admin: 11/12/19 10:29 Dose: 1 tablet Pregabalin (Lyrica -) 50 mg PO DAILY [facility] Last Admin: 11/12/19 10:29 Dose: 50 mg Zinc Sulfate (Orazinc -) 220 mg PO DAILY [facility] Last Admin: 11/12/19 10:29 Dose: 220 mg - Objective Vital Signs: Vital Signs Temperature 98.4 F 11/13/19 06:00 Pulse Rate 62 11/13/19 06:00 Respiratory Rate 17 11/13/19 06:00 Blood Pressure 117/64 11/13/19 06:00 O2 Sat by Pulse Oximetry (%) 98 11/12/19 20:34 Constitutional: Yes: No Distress, Calm Neck: Yes: Supple Cardiovascular: Yes: Regular Rate and Rhythm Respiratory: Yes: Regular, CTA Bilaterally, On Nasal O2 Gastrointestinal: Yes: Normal Bowel Sounds, Soft Edema: No Labs: CBC, BMP 11/13/19 06:05 11/13/19 06:05 INR, PTT INR 1.03 (0.83-1.09) 11/05/19 15:20 - ....Imaging EKG: Report Reviewed (Tele: AV paced) Problem List - Problems (1) 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 Qualifiers: Laterality: right Qualified Code(s): L97.413 - Non-pressure chronic ulcer of right heel and midfoot with necrosis of muscle (2) Hyperkalemia Code(s): E87.5 - HYPERKALEMIA (3) Acute decompensated heart failure Code(s): I50.9 - HEART FAILURE, UNSPECIFIED (4) COPD (chronic obstructive pulmonary disease) Code(s): J44.9 - CHRONIC OBSTRUCTIVE PULMONARY DISEASE, UNSPECIFIED Qualifiers: COPD type: unspecified COPD Qualified Code(s): J44.9 - Chronic obstructive pulmonary disease, unspecified (5) Pleural effusion Code(s): J90 - PLEURAL EFFUSION, NOT ELSEWHERE CLASSIFIED (6) Biventricular ICD (implantable cardioverter-defibrillator) in place Code(s): Z95.810 - PRESENCE OF AUTOMATIC (IMPLANTABLE) CARDIAC DEFIBRILLATOR (7) Cardiomyopathy Code(s): I42.9 - CARDIOMYOPATHY, UNSPECIFIED Qualifiers: Cardiomyopathy type: ischemic Qualified Code(s): I25.5 - Ischemic cardiomyopathy (8) Diabetes Code(s): E11.9 - TYPE 2 DIABETES MELLITUS WITHOUT COMPLICATIONS Qualifiers: Diabetes mellitus type: type 2 Chronic kidney disease stage: on chronic dialysis (9) ESRD (end stage renal disease) Code(s): N18.6 - END STAGE RENAL DISEASE (10) HTN (hypertension) Code(s): I10 - ESSENTIAL (PRIMARY) HYPERTENSION Qualifiers: (11) Hypothyroid Code(s): E03.9 - HYPOTHYROIDISM, UNSPECIFIED Qualifiers: Hypothyroidism type: unspecified Qualified Code(s): E03.9 - Hypothyroidism , unspecified Assessment/Plan 11/10/2019 MPI study noted, predominant infarct/scarring with no ischemia, severe LV systolic dysfunction 09/19/2019 [employer] PRESSURIZATION MECHANIC-D interrogated, 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 08/2019 10 beat run of NSVT self- terminated w/o therapy. 09/12/2019 Moderate dilated with severely decreased LVEF 20-25%, preserved wall motion at base, rest of segments severely HK, mod-severe MR, mild TR, pacemaker RV, mild-mod AR, mild ao dilatation 4.1 cm 1. Acute on chronic class II-III NYHA classification LV systolic heart failure/ dilated ischemic cardiomyopathy, clinically resolving 2. History of acute Hypercapneic/Hypoxic Respiratory Failure 3. CAD post PCI/stent angina pectoris 4. Post PRESSURIZATION MECHANIC-D 5. HTN 6. DM 7. Hypercholesterolemia 8. Organic brain syndrome/dementia 9. Hypothyroidism 10. ESRD on HD 11. History of laparoscopic cholecystectomy 12. Right heel cellulitis/ulcer post debridement 13. Laparoscopic cholecystectomy PLAN: 1. HD per renal service 2. Continue Coreg 6.25 bid and dose titration as tolerated, hemodynamics permitting 3. Recommend the addition of Entresto once hyperkalemia resolves 4. Continue ISMO 20 bid, resumed hydralazine 25 bid 5. Continue ASA 81 qd 6. Continue Lipitor 10 qhs 7. F/U in the office post D/C call [phone] 8. Complete Vanco/Zosyn course per ID, wound care 9. DVT and GI prophylaxis, d/w daughter she will bring over his cardiac reports from [place] for review
--- NOTE | 2019-11-13 10:15 | PN ---
Progress Note, Physician Chief Complaint: AWAKE ALERT FEELING BETTER NO NEW EVENTS, FEVERS - Current Medication List Current Medications: Active Medications Acetaminophen (Tylenol -) 650 mg PO Q4H PRN PRN Reason: PAIN 1-3 Last Admin: 11/09/19 12:57 Dose: 650 mg Acetaminophen/Codeine Phosphate (Tylenol # 3 -) 1 tab PO Q6H PRN PRN Reason: PAIN LEVEL 7 - 10 Ascorbic Acid (Vitamin C -) 250 mg PO DAILY [facility] Last Admin: 11/12/19 10:29 Dose: 250 mg Aspirin (Asa -) 81 mg PO DAILY [facility] Last Admin: 11/12/19 10:29 Dose: 81 mg Atorvastatin Calcium (Lipitor -) 10 mg PO [facility] Last Admin: 11/12/19 22:14 Dose: 10 mg Carvedilol (Coreg -) 6.25 mg PO BID [facility] Last Admin: 11/12/19 22:15 Dose: 6.25 mg Collagenase (Santyl -) 1 applic TP DAILY [facility]; Protocol Last Admin: 11/12/19 15:42 Dose: 1 applic Donepezil HCl (Aricept -) 10 mg PO [facility] Last Admin: 11/12/19 22:14 Dose: 10 mg Epoetin Yuan (Procrit -) 3,000 unit IVPUSH ONCE ONE Stop: 11/13/19 11:42 Famotidine (Pepcid -) 20 mg PO [facility] Last Admin: 11/12/19 22:15 Dose: 20 mg Hydralazine HCl (Apresoline -) 25 mg PO BID [facility] Last Admin: 11/12/19 22:15 Dose: 25 mg Piperacillin Sod/Tazobactam (Sod 2.25 gm/ Dextrose) 50 mls @ 100 mls/hr IVPB Q8H-IV [facility]; Protocol Last Admin: 11/13/19 01:30 Dose: 100 mls/hr Sodium Chloride (Normal Saline -) 250 mls @ 3,000 mls/hr IV PRN PRN PRN Reason: Hypotension during Dialysis Stop: 11/13/19 11:41 Insulin Aspart (Novolog Vial Sliding Scale -) 1 vial SQ [facility]; Protocol Last Admin: 11/13/19 06:29 Dose: Not Given Insulin Detemir (Levemir Vial) 10 units SQ [facility] Last Admin: 11/12/19 22:15 Dose: 10 units Isosorbide Mononitrate (Ismo -) 20 mg PO BIDISMO [facility] Last Admin: 11/12/19 22:00 Dose: 20 mg Levothyroxine Sodium (Synthroid -) 125 mcg PO DAILY@0700 [facility] Last Admin: 11/13/19 06:30 Dose: 125 mcg Multivit/Ca Carb/B Cmplx/FA/Prenat (Nephro-Domenico -) 1 tablet PO DAILY [facility] Last Admin: 11/12/19 10:29 Dose: 1 tablet Pregabalin (Lyrica -) 50 mg PO DAILY [facility] Last Admin: 11/12/19 10:29 Dose: 50 mg Zinc Sulfate (Orazinc -) 220 mg PO DAILY [facility] Last Admin: 11/12/19 10:29 Dose: 220 mg - Objective Vital Signs: Vital Signs Temperature 98.4 F 11/13/19 06:00 Pulse Rate 62 11/13/19 06:00 Respiratory Rate 17 11/13/19 06:00 Blood Pressure 117/64 11/13/19 06:00 O2 Sat by Pulse Oximetry (%) 98 11/12/19 20:34 Constitutional: Yes: Mild Distress Cardiovascular: Yes: Regular Rate and Rhythm Respiratory: Yes: CTA Bilaterally Gastrointestinal: Yes: Soft, Distention Genitourinary: Yes: Other Musculoskeletal: Yes: Muscle Weakness Extremities: Yes: Deformity Integumentary: Yes: Pressure Ulcer Wound/Incision: Yes: Dressing Dry and Intact (RIGHT HEEL) Neurological: Yes: Pre-Existing Deficit ...Motor Strength: RLE Labs: CBC, BMP 11/13/19 06:05 11/13/19 06:05 INR, PTT INR 1.03 (0.83-1.09) 11/05/19 15:20 Problem List - Problems (1) Elevated troponin Code(s): R79.89 - OTHER SPECIFIED ABNORMAL FINDINGS OF BLOOD CHEMISTRY (2) Hyperkalemia Code(s): E87.5 - HYPERKALEMIA (3) Acute decompensated heart failure Code(s): I50.9 - HEART FAILURE, UNSPECIFIED (4) COPD (chronic obstructive pulmonary disease) Code(s): J44.9 - CHRONIC OBSTRUCTIVE PULMONARY DISEASE, UNSPECIFIED Qualifiers: COPD type: unspecified COPD Qualified Code(s): J44.9 - Chronic obstructive pulmonary disease, unspecified (5) Heel ulcer Code(s): L97.409 - NON-PRS CHRONIC ULCER OF UNSP HEEL AND MIDFOOT W UNSP SEVERT Qualifiers: Laterality: right (6) Pleural effusion Code(s): J90 - PLEURAL EFFUSION, NOT ELSEWHERE CLASSIFIED (7) Right foot pain Code(s): M79.671 - PAIN IN RIGHT FOOT (8) Biventricular ICD (implantable cardioverter-defibrillator) in place Code(s): Z95.810 - PRESENCE OF AUTOMATIC (IMPLANTABLE) CARDIAC DEFIBRILLATOR (9) Cardiomyopathy Code(s): I42.9 - CARDIOMYOPATHY, UNSPECIFIED Qualifiers: Cardiomyopathy type: ischemic Qualified Code(s): I25.5 - Ischemic cardiomyopathy (10) Diabetes Code(s): E11.9 - TYPE 2 DIABETES MELLITUS WITHOUT COMPLICATIONS Qualifiers: Diabetes mellitus type: type 2 Chronic kidney disease stage: on chronic dialysis (11) ESRD (end stage renal disease) Code(s): N18.6 - END STAGE RENAL DISEASE (12) Hypothyroid Code(s): E03.9 - HYPOTHYROIDISM, UNSPECIFIED Qualifiers: Hypothyroidism type: unspecified Qualified Code(s): E03.9 - Hypothyroidism , unspecified (13) 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 VANCOMYCIN IV PER ID NEED PLAN OF DURATION AND PICC LINE IF NEEDED? I WILL D/W I.D. NEPHROLOGY EVAL, ESRD ON HD PAIN CONTROL
--- NOTE | 2019-11-13 10:24 | DS ---
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 (Acute) Elevated troponin (Acute) Hyperkalemia (Acute) Volume overload (Acute) Hospital Course: - Problems (1) Heel Ulcer Assessment/Plan: S/P RIGHT HEEL DEBRIDEMENT OF ABSCESS WILL F/U CX AND PATHOLOGY IV ABX PER ID--WILL DC ONCE CLEARED BY ID ?PIC LINE DVT PROPHYLAXIS (2) Pleural effusion Assessment/Plan: -Improved -HD as per renal Problems reviewed: Yes Code(s): J90 - PLEURAL EFFUSION, NOT ELSEWHERE CLASSIFIED (3) Diabetes Assessment/Plan: -BGM AC HS -ISS -Last A1c 8.1 in 09/2019 -Levemir Problems reviewed: Yes Code(s): E11.9 - TYPE 2 DIABETES MELLITUS WITHOUT COMPLICATIONS Qualifiers: Diabetes mellitus type: type 2 Chronic kidney disease stage: on chronic dialysis (4) ESRD (end stage renal disease) Assessment/Plan: -Nephrology on board -HD as per renal Problems reviewed: Yes Code(s): N18.6 - END STAGE RENAL DISEASE (5) Elevated troponin Assessment/Plan: -Seen by Cardiology -At baseline as previous, likely 2/2 to ESRD, not consistent with ACS -EKG-NSR -Echo 09/2019: LVEF 20-25%, global hyperkinesis, normal Right ventricle, mod mitral rregurg, mod tricuspid regurg, mild aortic regurg, right vent systolic pressure- 40-50 Problems reviewed: Yes Code(s): R79.89 - OTHER SPECIFIED ABNORMAL FINDINGS OF BLOOD CHEMISTRY Plan of Treatment: VANCOMYCIN 500MG ON HEMODIALYSIS DAYS FOR 2 WEEKS LEVAQUIN 250MG EVERY OTHER DAY FOR 7 TOTAL DOSES Goals: SEE WOUND CLINIC HER WITH DR VASQUEZ/TED Condition: Guarded - Instructions Diet, Activity, Other Instructions: ANTIBIOTICS PER ID RECOMMENDATIONS VANCO ON HEMODIALYSIS DAYS 2 WEEKS LEVAQUIN EVERY OTHER DAY FOR 7 TOTAL DOSES WOUND CLINIC IN [address] MCGRAW/TED Disposition: [facility] - Home Medications Comprehensive Discharge Medication List: Ambulatory Orders Acetaminophen [Pain Relief] 650 mg PO PRN 10/20/19 Donepezil HCl [Aricept] 10 mg PO HS 10/20/19 Famotidine [Acid Controller] 20 mg PO BID 10/20/19 Insulin Detemir [Levemir Flextouch] 10 unit SCJ HS 10/20/19 Ipratropium/Albuterol Sulfate [Iprat-Albut 0.5-3(2.5) mg/3 ml] 1 tube NEB QID Isosorbide Dinitrate [Isordil] 20 mg PO BID 10/20/19 Levothyroxine Sodium [Levoxyl] 125 mcg PO DAILY 10/20/19 Pregabalin [Lyrica -] 75 mg PO DAILY 10/20/19 Atorvastatin Ca [Lipitor] 10 mg PO HS 10/31/19 Insulin Sliding Scale [Novolog Vial Sliding Scale -] 0 units SQ [facility] 10/31/19 Carvedilol [Coreg -] 6.25 mg PO BID tablet 11/07/19 Collagenase Clostridium Hist. [Santyl -] 1 applic TP DAILY tube 11/07/19 Acetaminophen W/ Codeine #3 [Tylenol # 3 -] 1 tab PO Q6H PRN tablet MDD 4 11/13 Ascorbic Acid [Vitamin C -] 250 mg PO DAILY tablet 11/13/19 Collagenase Clostridium Hist. [Santyl -] 1 applic TP DAILY tube 11/13/19 Vancomycin/0.9 % Sod Chloride [Vanco 500 mg/100 ml-0.9% NaCl] 500 mg IV PRN #6 [id number] 11/13/19 Vitamin B Comp W-C [Nephro-Domenico -] 1 tablet PO DAILY tablet 11/13/19 Zinc Sulfate [Orazinc -] 220 mg PO DAILY capsule 11/13/19 levoFLOXacin [Levaquin -] 250 mg PO Q48H #7 tablet 11/13/19 Prescription Drug Monitoring Program (I-STOP) results: I-STOP not reviewed
[2019-11-13] MEDS: PREGABALIN 50 MG CAPSULE PO SCH (10:33)
[2019-11-13] MEDS: ASPIRIN 81 MG CHEWABLE TABLETS PO SCH (10:33)
[2019-11-13] MEDS: ZINC SULFATE 220 MG CAPSULE (FP) PO SCH (10:33)
[2019-11-13] MEDS: VITAMIN B COMP W-C 1 EA TABLET PO SCH (10:33)
[2019-11-13] MEDS: ASCORBIC ACID 250 MG TABLET (FP) PO SCH (10:33)
[2019-11-13] MEDS ORDERED: EPOETIN ALFA 3,000 UNIT/1 ML ML IVPUSH ONE (13:00)
--- NOTE | 2019-11-13 15:29 | PN ---
Progress Note, Physician History of Present Illness: Pt seen and examined at bedside. He is awake and alert. He denies shortness of breath. - Current Medication List Current Medications: Active Medications Acetaminophen (Tylenol -) 650 mg PO Q4H PRN PRN Reason: PAIN 1-3 Last Admin: 11/09/19 12:57 Dose: 650 mg Acetaminophen/Codeine Phosphate (Tylenol # 3 -) 1 tab PO Q6H PRN PRN Reason: PAIN LEVEL 7 - 10 Ascorbic Acid (Vitamin C -) 250 mg PO DAILY [facility] Last Admin: 11/13/19 10:33 Dose: 250 mg Aspirin (Asa -) 81 mg PO DAILY [facility] Last Admin: 11/13/19 10:33 Dose: 81 mg Atorvastatin Calcium (Lipitor -) 10 mg PO HS [facility] Last Admin: 11/12/19 22:14 Dose: 10 mg Carvedilol (Coreg -) 6.25 mg PO BID [facility] Last Admin: 11/12/19 22:15 Dose: 6.25 mg Collagenase (Santyl -) 1 applic TP DAILY [facility]; Protocol Last Admin: 11/12/19 15:42 Dose: 1 applic Donepezil HCl (Aricept -) 10 mg PO [facility] Last Admin: 11/12/19 22:14 Dose: 10 mg Famotidine (Pepcid -) 20 mg PO [facility] Last Admin: 11/12/19 22:15 Dose: 20 mg Hydralazine HCl (Apresoline -) 25 mg PO BID [facility] Last Admin: 11/12/19 22:15 Dose: 25 mg Piperacillin Sod/Tazobactam (Sod 2.25 gm/ Dextrose) 50 mls @ 100 mls/hr IVPB Q8H-IV [facility]; Protocol Last Admin: 11/13/19 10:34 Dose: 100 mls/hr Insulin Aspart (Novolog Vial Sliding Scale -) 1 vial SQ [facility]; Protocol Last Admin: 11/13/19 06:29 Dose: Not Given Insulin Detemir (Levemir Vial) 10 units SQ [facility] Last Admin: 11/12/19 22:15 Dose: 10 units Isosorbide Mononitrate (Ismo -) 20 mg PO BIDISMO [facility] Last Admin: 11/12/19 22:00 Dose: 20 mg Levothyroxine Sodium (Synthroid -) 125 mcg PO DAILY@0700 [facility] Last Admin: 11/13/19 06:30 Dose: 125 mcg Multivit/Ca Carb/B Cmplx/FA/Prenat (Nephro-Domenico -) 1 tablet PO DAILY [facility] Last Admin: 11/13/19 10:33 Dose: 1 tablet Pregabalin (Lyrica -) 50 mg PO DAILY [facility] Last Admin: 11/13/19 10:33 Dose: 50 mg Zinc Sulfate (Orazinc -) 220 mg PO DAILY [facility] Last Admin: 11/13/19 10:33 Dose: 220 mg - Objective Vital Signs: Vital Signs Temperature 98.4 F 11/13/19 13:50 Pulse Rate 70 11/13/19 14:30 Respiratory Rate 18 11/13/19 14:30 Blood Pressure 135/64 11/13/19 14:30 O2 Sat by Pulse Oximetry (%) 97 11/13/19 09:00 Constitutional: Yes: Calm Eyes: Yes: Conjunctiva Clear HENT: Yes: Atraumatic Neck: Yes: Supple Cardiovascular: Yes: S1, S2 Respiratory: Yes: CTA Bilaterally Gastrointestinal: Yes: Soft Genitourinary: Yes: WNL Musculoskeletal: Yes: WNL Edema: No Neurological: Yes: Oriented Psychiatric: Yes: Oriented Labs: CBC, BMP 11/13/19 06:05 11/13/19 06:05 INR, PTT INR 1.03 (0.83-1.09) 11/05/19 15:20 Problem List - Problems (1) Acute decompensated heart failure Code(s): I50.9 - HEART FAILURE, UNSPECIFIED (2) Pleural effusion Code(s): J90 - PLEURAL EFFUSION, NOT ELSEWHERE CLASSIFIED (3) ESRD (end stage renal disease) Code(s): N18.6 - END STAGE RENAL DISEASE Assessment/Plan Current Medications Generic Name Dose Route Start Last Admin Trade Name Freq PRN Reason Stop Dose Admin Acetaminophen 650 mg 11/07/19 07:49 11/09/19 12:57 Tylenol - PO 650 mg Q4H PRN Administration PAIN 1-3 Acetaminophen/Codeine Phosphate 1 tab 11/12/19 11:10 Tylenol # 3 - PO Q6H PRN PAIN LEVEL 7 - 10 Ascorbic Acid 250 mg 11/09/19 10:00 11/13/19 10:33 Vitamin C - PO 250 mg DAILY [facility] Administration Aspirin 81 mg 11/09/19 10:00 11/13/19 10:33 Asa - PO 81 mg DAILY [facility] Administration Atorvastatin Calcium 10 mg 11/07/19 22:00 11/12/19 22:14 Lipitor - PO 10 mg HS [facility] Administration Carvedilol 6.25 mg 11/07/19 10:00 11/12/19 22:15 Coreg - PO 6.25 mg BID [facility] Administration Collagenase 1 applic 11/11/19 11:30 11/12/19 15:42 Santyl - TP 1 applic DAILY [facility] Administration Protocol Donepezil HCl 10 mg 11/07/19 22:00 11/12/19 22:14 Aricept - PO 10 mg HS [facility] Administration Famotidine 20 mg 11/07/19 22:00 11/12/19 22:15 Pepcid - PO 20 mg HS [facility] Administration Hydralazine HCl 25 mg 11/12/19 22:00 11/12/19 22:15 Apresoline - PO 25 mg BID [facility] Administration Piperacillin Sod/Tazobactam 50 mls @ 100 mls/hr 11/08/19 10:00 11/13/19 10:34 Sod 2.25 gm/ Dextrose IVPB 100 mls/hr Q8H-IV [facility] Administration Protocol Insulin Aspart 1 vial 11/07/19 11:00 11/13/19 06:29 Novolog Vial Sliding Scale - SQ Not Given ACHS [facility] Protocol Insulin Detemir 10 units 11/07/19 22:00 11/12/19 22:15 Levemir Vial SQ 10 units HS [facility] Administration Isosorbide Mononitrate 20 mg 11/12/19 17:00 11/12/19 22:00 Ismo - PO 20 mg BIDISMO [facility] Administration Levothyroxine Sodium 125 mcg 11/08/19 07:00 11/13/19 06:30 Synthroid - PO 125 mcg DAILY@0700 [facility] Administration Multivit/Ca Carb/B Cmplx/FA/Prenat 1 tablet 11/09/19 10:00 11/13/19 10:33 Nephro-Domenico - PO 1 tablet DAILY [facility] Administration Pregabalin 50 mg 11/07/19 10:00 11/13/19 10:33 Lyrica - PO 50 mg DAILY [facility] Administration Zinc Sulfate 220 mg 11/09/19 10:00 11/13/19 10:33 Orazinc - PO 220 mg DAILY [facility] Administration Impression 1. ESRD 2. HTN 3. fluid overload 4. DM 5. hypothyroidism 6. pleural effusion 7. hyperkalemia 8. CHF Plan - HD today - renal diet - discussed importance of compliance with fluid intake - volume status greatly improved
[2019-11-13] MEDS: COLLAGENASE CLOSTRIDIUM HIST. 30 GRAMS TUBE TP SCH (17:59)
[2019-11-13 18:27] VITALS: BP 142/60; PULSE 74
[2019-11-13 18:51] VITALS: TEMP 98
== END 2019-11-13 19:00 | DRG 264 ==
LOC: JER 14:05 → JERBED 17:29 → J2W 21:20
PROVIDERS: ADMIT Family Medicine; ATTEND Family Medicine
PROC: 0JBQ0ZZ Excision of Right Foot Subcutaneous Tissue and Fascia, Open Approach (ICD-10-PCS; principal; 2019-11-06 07:30)
PROC: 5A1D70Z Performance of Urinary Filtration, Intermittent, Less than 6 Hours Per Day (ICD-10-PCS; 2019-11-13)
DX: I13.2 Hypertensive heart and chronic kidney disease with heart failure and with stage 5 chronic kidney disease, or end stage renal disease (principal); I50.23 Acute on chronic systolic (congestive) heart failure; N18.6 End stage renal disease; L97.413 Non-pressure chronic ulcer of right heel and midfoot with necrosis of muscle; L03.115 Cellulitis of right lower limb; I47.1 Supraventricular tachycardia; I42.9 Cardiomyopathy, unspecified; E11.621 Type 2 diabetes mellitus with foot ulcer; E11.22 Type 2 diabetes mellitus with diabetic chronic kidney disease; J44.9 Chronic obstructive pulmonary disease, unspecified; E87.70 Fluid overload, unspecified; E03.9 Hypothyroidism, unspecified; E87.5 Hyperkalemia; R79.89 Other specified abnormal findings of blood chemistry; I25.119 Atherosclerotic heart disease of native coronary artery with unspecified angina pectoris; Z95.5 Presence of coronary angioplasty implant and graft; F03.90 Unspecified dementia, unspecified severity, without behavioral disturbance, psychotic disturbance, mood disturbance, and anxiety; Z99.2 Dependence on renal dialysis
CPT/HCPCS: 36415; 71275-TC; 73630-TC-LT; 73630-TC-RT-FY; 74174-TC; 78452-TC; 80048; 80053; 81003; 82550; 82962; 83690; 83735; 83880; 84100; 84484; 85025; 85027; 85610; 85730; 86803; 87040; 87070; 87186; 87205; 87340; 88304-TC; 93005; 93010; 93017; 93985; 94640; 94760; 97116-GP; 97161-GP; 99285-25; A9502; G0480; J0131; J0885; J1644; J2785; Q5106; Q9967